=== PATIENT | female | born 1950 | race Caucasian/White ===

== ENCOUNTER 2024-08-05 08:54 | Outpatient (REF) | payer MEDICARE, SELFPAY ==
[2024-08-05 09:13] LABS: Potassium 5.9 mmol/L (3.5-5.1)
== END 2024-08-05 08:55 | disposition home or self-care (01) ==
LOC: LAB 08:54
PROVIDERS: PCP Internal Medicine Nephrology; Visit Provider Internal Medicine Nephrology
DX: E87.5 Hyperkalemia (principal)
CPT/HCPCS: 36415; 84132

== ENCOUNTER 2024-12-14 08:04 | Outpatient (OUT) | payer MEDICARE, SELFPAY ==
--- OUTSIDE RECORDS SUMMARY | 2024-11-25 14:04 | XMS_ITS ---
Author Name Auto Generated Organization OHIP Support Name Relationship Address Phone Melani Butler Next of Kin [address] [place] [address] [place] [phone] + MELANI BUTLER Next of Kin [facility] [place] [address] + MELANI BUTLER Next of Kin [facility] [place] [address] + Melani Btuler Next of Kin [address] [place] [address] [place] [address] + LUKE, MELANI Next of Kin [facility] [place] [address] + Luke, Melani Next of Kin [address] [place] [address] [place] [phone] + Luke, Melani Next of Kin [address] [place] [address] [address] [place] [phone] + MELANI UBTLER Next of Kin [facility] [place] [address] + MELANI BUTLER Next of Kin [facility] [place] [address] + Luke, Melani Next of Kin [address] [place] [address] [place] [address] + Luke, Melani Next of Kin [address] [place] [address] [place] [address] + Luke, Melani Next of Kin [address] [place] [address] [place] [phone] + Melani Butler Next of Kin [address] [address] [place] [address] + MELANI BUTLER Next of Kin [address] [facility] [place] [address] + MELANI BUTLER Next of Kin [address] [place] [address] + Care Team Providers Care Washer Hand Name Role Phone GABE CAMPBELL Attending Unavailable GABE CAMPBELL Attending Unavailable GUZMANJAYY Attending Unavailable GUZMANJAYY A Attending Unavailable GABE CAMPBELL Attending Unavailable GABE CAMPBELL Referring Unavailable GABE CAMPBELL Attending Unavailable Guzman, Jayy Primary Care Unavailable Anival Benjamin Attending Unavailable Anival Benjamin Admitting Unavailable Guzman, Jayy Primary Care Unavailable Malachi Clarke Attending Malachi Mckay Admitting Unavai lable Guzman, Jayy Primary Care Unavailable Jabari Olson Attending Unavailable Jabari Olson Admitting Unavailable Guzman, Jayy Primary Care Unavailable Herve Londono Attending UnavailHerve Dowling Admitting Unavailabl e Guzman, Jayy Primary Care Unavailable Leo Bell Admitting UnavailMike Lopes Attending Unavailable oTño Denson Consulting Unavailable Nilsa Darnell Consulting Unavailable Charles, Lan Consulting Unavailable Anival Benjamin Consulting Unavailable Abdon Tran Consulting Unavailab Nita Hess Consulting Unavailable Abdon Jacobs Consulting Unavaila Leana Umaña Consulting Unavailable René Gerardo Consulting Unavailable Tu Curran Consulting Unavailable Philipp Holt Consulting Unavailable [place], Basem Consulting Unavailable Santiago Joshi Consulting Un available Wanda Frank Consulting Unavailable Goldie Mcmillan Consulting Unavaila Herve Abreu Consulting UnavailSherwin Mancia Consulting Unavailable Madelin Mancini Consulting Unavailable Mike Barajas Unavailable Malachi Clarke Consulting Aruna Bettencourt Consulting Unavailable Angel Alcocer Consulting Unavailable Charles, Lan Consulting Unavailable Sam Carpio Attending Unavailable Guzman, Jayy Primary Care Unavailable Sam Carpio Admitting Unavailable Sherwin Richards Unavailable Carlton Lazaro Attending Unavailable Guzman, Jayy Primary Care Unavailable aCrlton Lazaro Admitting Unavailable Guzman, Jayy Primary Care Unavailable Jabari Olson Admitting Unavailable Jabari Olson Attending Unavailable GUZMAN, JAYY MYRTLE Primary Care Unavailable JAYY PARKER R Referring Unavailable GUZMAN, JAYY MYRTLE Primary Care Unavailable JAYY PARKER R Referring Unavailable JAYY PARKER R Referring Unavailable GUZMAN, JAYY MYRTLE Primary Care Unavailable GUZMAN, JAYY MYRTLE Primary Care Unavailable JAYY PARKER R Referring Unavailable GUZMAN, JAYY MYRTLE Primary Care Unavailable AVNI AZEVEDO Referring Unavailable GUZMAN, JAYY MYRTLE Primary Care Unavailable AVNI AZEVEDO Referring Unavailable JAYY PARKER Attending Unavailable GUZMAN, JAYY MYRTLE Primary Care Unavailable JAYY PARKER R Referring Unavailable JAYY PARKER Referring Unavailable GUZMAN, JAYY MYRTLE Primary Care Unavailable GUZMAN, JAYY MYRTLE Primary Care Unavailable GUZMAN, JAYY MYRTLE Primary Care Unavailable JOLLYAVNI Referring Unavailable GUZMAN, JAYY MYRTLE Primary Care Unavailable MEHNAZ DURAN Attending Unavailable JAYY PARKER R Referring Unavailable GUZMAN, JAYY MYRTLE Primary Care Unavailable AVNI AZEVEDO Referring Unavailable JAYY PARKER R Attending Unavailable GUZMAN, JAYY MYRTLE Primary Care Unavailable JAYY PARKER R Referring Unavailable GUZMAN, JAYY MYRTLE Primary Care Unavailable JAYY PARKER R Referring Unavailable JAYY PARKER Attending Unavailable GUZMAN, JAYY MYRTLE Primary Care Unavailable JAYY PARKER Referring Unavailable PROBLEMS DATE TYPE CONDITION / CODE ATTENDING STATUS [facility] 11/25/2024 Unknown Unspecified atri al fibrillation / I48.91(ICD-10) Malachi Clarke [facility] 11/03/2024 Unknown Breakdown (mecha nical) of vascular dialysis catheter, initial encounter / T82.41XA(ICD-10) Herve Londono [facility] 11/03/2024 Unknown Unspecified kidn ey failure / N19(ICD-10) Herve Londono [facility] 09/14/2024 Unknown Right upper quad rant pain / R10.11(ICD-10) Carlton Lazaro [facility] 09/14/2024 Unknown Unspecified abdo amanda pain / R10.9(ICD-10) Carlton Lazaro [facility] 08/11/2024 Unknown Resistant hypert ension / I1A.0(ICD-10) Anival Benjamin [facility] 05/25/2024 Unknown 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 / Z99.2(ICD-10) Sam Carpio [facility] 05/25/2024 Unknown Hypertensive chr onic kidney disease with stage 1 through stage 4 chronic kidney disease, or unspecified chronic kidney disease / I12.9(ICD-10) Sam Carpio [facility] 05/25/2024 Unknown End stage renal disease / N18.6(ICD-10) Sam Carpio [facility] 05/25/2024 Unknown Myocardial infar ction type 2 / I21.A1(ICD-10) Sam Carpio [facility] 05/25/2024 Unknown Paroxysmal atria l fibrillation / I48.0(ICD-10) CarpioSam cortez [facility] 05/25/2024 Unknown Hypotension, uns pecified / I95.9(ICD-10) Sam Carpio [facility] 05/25/2024 Unknown Unspecified cont act dermatitis due to other agents / L25.8(ICD-10) Sam Carpio [facility] 05/25/2024 Unknown Unspecified urin jose angel incontinence / R32(ICD-10) Sam Carpio [facility] 05/09/2024 Unknown Hypertensive lew rgency / I16.1(ICD-10) Jaun Mike [facility] 05/09/2024 Unknown Unspecified conv ulsions / R56.9(ICD-10) Jaun Mike [facility] 05/09/2024 Unknown Malignant neopla sm of unspecified part of unspecified bronchus or lung / C34.90(ICD-10) Mike Zamorano [facility] 05/09/2024 Unknown Atherosclerotic heart disease of [place] coronary artery without angina pectoris / I25.10(ICD-10) [facility] 05/09/2024 Unknown Presence of aortocoronary bypass graft / Z95.1(ICD-10) [facility] 05/09/2024 Unknown Chronic kidney d isease, stage 3b / N18.32(ICD-10) [facility] 05/09/2024 Unknown Cough, unspecifi ed / R05.9(ICD-10) [facility] 05/09/2024 Unknown Acute respirator y failure with hypoxia / J96.01(ICD-10) [facility] 05/09/2024 Unknown Acute kidney marni lure, unspecified / N17.9(ICD-10) [facility] 05/09/2024 Unknown Chronic kidney d isease, unspecified / N18.9(ICD-10) [facility] 05/09/2024 Unknown Hypertensive urg ency / I16.0(ICD-10) [facility] 05/09/2024 Unknown Atherosclerosis of renal artery / I70.1(ICD-10) [facility] 05/09/2024 Unknown Pulmonary hypert ension, unspecified / I27.20(ICD-10) [facility] 05/09/2024 Unknown Rheumatoid arthr itis, unspecified / M06.9(ICD-10) [facility] 05/09/2024 Unknown Anemia in chroni c kidney disease / D63.1(ICD-10) [facility] 05/09/2024 Unknown Unspecified atherosclerosis / I70.90(ICD-10) [facility] 05/09/2024 Unknown 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) [facility] 05/09/2024 Unknown Critical illness myopathy / G72.81(ICD-10) Mike Zamorano [facility] 05/09/2024 Unknown Other specified counseling / Z71.89(ICD-10) Mike Zamorano [facility] 05/07/2024 Unknown Pleural effusion , not elsewhere classified / J90(ICD-10) Jabari Olson [facility] 05/05/2024 Unknown Shortness of markus ath / R06.02(ICD-10) Jabari Olson [facility] 04/22/2024 Active SOB (shortness o f breath) / R06.02(ICD-10) NA Active [facility] 01/15/2023 Active 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, right (HCC) / C34.91(ICD-10) JAYY PARKER Active [facility] PROCEDURES No Procedure Records Found RESULTS FPG ECG *CARDIOLOGY ONLY* Observed: 01/2025 2:12 PM Status: COMPLETED Source: [facility] [place] [address] Electrocardiograph Report Signed Patient: Lupe Butler MR#: [id number] 1 : 1950 Acct:[id number] Age/Sex: 74 / F ADM Date: 11/25/24 Loc: [facility] Room: Type: [facility] Attending Dr: Malachi Clarke MD Ordering Provider: Malachi Clarke MD Date of Service: 11/25/2402/13/1404 ECG/FPG ECG *CARDIOLOGY ONLY*: I48.91 - Unspecified atrial fibrillation Copies to: Test Reason : Blood Pressure : */* mmHG Vent. Rate : 73 BPM Atrial Rate : 73 BPM P-R Int : 154 ms QRS Dur : 78 ms QT Int : 448 ms P-R-T Axes : 76 87 74 degrees QTcB Int : 493 ms Normal sinus rhythm Nonpathologic Q waves inferiorly. Confirmed by Malachi Clarke ([id number]) on 11/25/2024 4:30:04 PM Referred By: Electronically Signed By: Malachi Clarke Transcribed By: MUS Signed By Malachi Clarke MD 11/25/24 1630 XR LUMBAR SPINE 4+ VIEWS WIT H FLEXION EXTENSION Observed: 11/13/2024 12:46 PM Status: F Source: [facility] EPIC Exam: XR LUMBAR SPINE 4+ VIE WS WITH FLEXION EXTENSION Clinical History: Low back pain, post fall Reference Exam: No comparison FINDINGS: Lumbar vertebral bodies are of appropriate height. Minor multilevel anterior spondylosis. Disc space height loss most pronounced at L4-L5. Lumbar pedicles are not splayed. Oblique views document no pars interarticularis defects. Smooth sacrococcygeal arch. Abdominal aortic atherosclerosis and ectasia. Flexion/extension lateral views generate no abnormal motion. Background osteopenia. IMPRESSION: Minor degenerative changes. No acute compression or other fracture. No subluxation. No generation of abnormal motion on provocative maneuvers. Dictated on: 11/13/2024 5:13 PM This report has been electronically signed and approved by the interpreting Radiologist. DEIDRE Observed: 11/04/2024 12:00 AM Status: COMPLETED Source: [facility] Telephone (HEMASA) LUPE BUTLER ([id number]) 1950 F Date Time Provider Department 11/04/24 AVNI AZEVEDO During your visit today, we recorded the following information about you: Avni Azevedo APRN.MARCIE 11/04/2024 10:43 AM Signed Received order for oxygen renewal. Please contact patient and find out who she is following with. Last visit here 05/05/2024. No follow up scheduled. She should contact her physician she's following or schedule an appointment. Thanks, Avni Azevedo APRN.Pham Dodson, LIU 11/04/2024 1:04 PM Signed FYI: Spoke w/ pt who reports she uses the oxygen on an as needed basis. Encouraged pt to schedule a follow up w/ our office. Pt states that she is no longer receiving treatment. Explained to pt that we recommend she follow up even if she is not getting treatment. Pt verbalizes understanding and states that her is currently in hospice care. Does not wish to schedule a follow up at this time. Recommended she reach out to her PCP for her oxygen renewal. Pt verbalizes understanding and agrees. Pham Proctor RN Allergies As of Date: 11/04/2024 Noted Allergy Reaction MORPHINE 09/08/2009 1 - Mental Status Change LATEX 08/13/2023 9 - Itching NITROFURAN ANALOGUES 07/07/2001 SULFA (SULFONAMIDE ANTIBIOTICS) 07/07/2001 Date Reviewed: 11/04/2024 Reviewed by: Avni Azevedo APRN.ASSISTANT FACILITY MANAGER - Fully Assessed Reason for Visit: Care Coordination [3491] Cmt: Oxygen Request Prescriptions as of 11/04/2024 - predniSONE (DELTASONE) 20 mg tablet Take 2 tablets by mouth once daily. - amLODIPine (NORVASC) 10 mg tablet Take 1 tablet by mouth every afternoon. - furosemide (LASIX) 20 mg tablet Take 20 mg by mouth once daily as needed. - nitroglycerin sublingual (NITROQUICK) 0.4 mg SL tablet Dissolve 0.4 mg under the tongue every 5 minutes as needed for chest pain. - HYDROcodone-Acetaminophen (NORCO) 7.5-325 mg per tablet Take 1 tablet by mouth every 8 hours as needed for pain. - metoprolol tartrate 75 mg tab Take 75 mg by mouth twice daily. - alprazolam(XANAX 0.5 MG TAB) Take one(1) tablet two (2) times daily. Problem List As Of Date 11/04/2024 Noted Resolved Anxiety and depression [F41.9, F32.A] LUMBAGO [M54.50] Essential hypertension [I10] Other and Unspecified Hyperlipidemia [E78.5] COUGH [R05.9] 08/15/2001 TIA (Transient Ischemic Attack) [G45.9] 09/08/2009 Anemia [D64.9] 09/11/2009 SUMMARY [V999.95] 09/12/2009 PVD (peripheral vascular disease) (HCC) [I73.9] 12/21/2022 Difficult intubation [T88.4XXA] 12/21/2022 History of carotid endarterectomy [Z98.890] 12/21/2022 Smoker [F17.200] 12/21/2022 Atherosclerosis of [place] coronary artery of na*12/21/2022 NASIR (obstructive sleep apnea) [G47.33] 12/21/2022 Palpitations [R00.2] 12/21/2022 Opioid use [F11.90] 12/21/2022 Obesity (BMI 30.0-34.9) [E66.811] 12/21/2022 Blood pressure instability [I99.8] 12/25/2022 Primary lung cancer with metastasis from lung t*01/15/2023 Encounter Status:Closed by PHAM PROCTOR on 11/04/24 DIPSTICK AND MICROSCOPIC Collected: 1:38 PM Status: F Source: [facility] Order Comment: Name Collecti on Type:: Clean-Voided Midstream TYPE CODE TESTS RESULT OUT OF RANGE REFERENCE UNITS LAB UCOL Color,Urine Yellow Yellow LAB UAPP Appearance,Uri ne Cloudy Abnormal Alert Clear LAB USG Specificy [place],Urine 1.016 Normal 1.001-1.030 LAB UPH pH,Urine 5.5 Normal 5.0-9.0 LAB ULE Leukocyte Esterase,Urine 1+ High Negative LAB UNIT Nitrite,Urine Negative Negative LAB UPRO Protein,Urine 70 High Negative mg/dL LAB UGL Glucose,Urine (UA) Normal Normal LAB UKET Ketones,Urine Negative Negative LAB UURO Urobilinogen,U rine Normal Normal LAB UBIL Bilirubin,Urin e Negative Negative LAB UBLD Occult Blood,Urine Trace High Negative Result Comment: PERFORMED BY : [address] [address] [place] [address] PATHOLOGIST MATERIALS ENGINEER LEANA FONTANEZ M.D. LAB URBC RBC,Urine 3-4 0-4 [HPF] LAB UWBC WBC,Urine 5-9 High 0-4 [HPF] LAB UCLUMPWBC WBC CLUMP, Urine Rare High None Seen LAB USQEPI Squamous Epithelial Cell,Urine 5-9 High 0-2 [HPF] LAB UROTHEL Urothelial Cells 1-2 High 0-1 [HPF] LAB UBACT Bacteria,Urine Rare None Seen LAB UHYALC Hyaline Casts,Urine 0-8 0-8 [LPF] Result Comment: PERFORMED BY : [place] [address] PATHOLOGIST MATERIALS ENGINEER LEANA FONTANEZ M.D. Performed By: #### CUJose, MISHA ESTRADAUS #### [id number] [facility] URINE CULTURE Observed: 09/14/2024 1:38 PM Status: F Source: [facility] ORGANISM: Lactobacillus hailey aniya (O:LACGAS) [place] Count >100,000 Organism Comments Organism not Routinely Tested for Susceptibilities ORGANISM: Yeast Like Organism (O:YLO) [place] Count <10,000 Organism #2 identified as Pichia kuiavzevii, formerly known as Dee Dee krusei. PERFORMED BY: [place] [address] PATHOLOGIST MATERIALS ENGINEER LEANA FONTANEZ M.D. Performed By: #### CUJose, MISHA ESTRADAUS #### [id number] [facility] CT ABDOMEN PELVIS WO CON Observed: 09/14 1:30 PM Status: COMPLETED Source: [facility] [place] [address] CT Scan Report Signed Patient: Lupe Butler MR#: [id number] 1 : 1950 Acct:[id number] Age/Sex: 73 / F ADM Date: 09/14/24 Loc: ER Room: Type: [facility] ER Attending Dr: Copies to: Carlton Lazaro DO Ordering Provider: Carlton Lazaro DO Date of Service: 09/14/24 CT/CT abdomen pelvis wo con: R upper quad pain CT abdomen pelvis wo con 09/14/2024 12:15 PM SIGNS AND SYMPTOMS: Generalized abdominal pain TECHNIQUE: Multidetector ct axial images of the abdomen and pelvis were obtained without IV contrast. Multiplanar reformats were performed and reviewed to further define anatomy and possible pathology. CT was performed with one or more of the following dose reduction techniques: Automated exposure control, adjustment of the mA and/or kV according to patient size, or use of iterative reconstruction technique. COMPARISON: 11/25/2015 FINDINGS: Lower Chest: Breast implants are redemonstrated with rupture on the right similar to the prior exam. Atherosclerotic changes are noted in the thoracic aorta and coronary arteries. There is calcification along the mitral annulus. Emphysematous changes are noted in the lung bases. There is an atelectasis in the lung bases. There is a small right-sided pleural effusion. ABDOMEN: Liver: Within normal limits. Bile Ducts: Normal caliber. Gallbladder: Dependently layering stones and debris are noted in the gallbladder lumen. Pancreas: Within normal limits. Spleen: Within normal limits. Adrenals: Within normal limits. Kidneys: Their is a 3 mm nonobstructing stone at the superior pole the right collecting system. There is right renal cortical atrophy. This is unchanged. Pelvis: Reproductive Organs: No pelvic masses. Ureters: Within normal limits. Bladder: Within normal limits. Bowel: There are uncomplicated colonic diverticula. There is a normal appendix in the right lower quadrant. Mesenteric Lymph Nodes: No enlarged mesenteric lymph nodes. Peritoneum: No ascites or free air, no fluid collection. Vessels: Atherosclerotic changes are noted in the abdominal aorta and its branches. There is periaortic fat stranding possibly relating to aortitis. This is new compared to the prior exam. The abdominal aorta is ectatic. There is ongoing clinical concern for rupture or leak, CT angiogram is suggested. Retroperitoneum: Within normal limits. Abdominal Wall: Within normal limits. Bones: Degenerative changes are noted in the thoracolumbar spine. Degenerative changes are noted in the sacroiliac joints. CT/CT abdomen pelvis wo con IMPRESSION: Atherosclerotic changes are noted in the abdominal aorta and its branches. There is periaortic fat stranding possibly relating to aortitis. This is new compared to the prior exam. The abdominal aorta is ectatic. There is ongoing clinical concern for rupture or leak, CT angiogram is suggested. No bowel obstruction or obstructive uropathy. There is a small right-sided pleural effusion which appears to be new. The previous left-sided pleural effusion has resolved. Additional chronic findings are noted as above. Impression dictated by: Mike Higgins M.D.09/14/2024 1:39 PM Dictation Location: [address] [address] Transcribed By: PWS 09/14/24 1330 Dictated By: Mike Higgins II, MD 09/14/24 1330 Signed By: <Electronically signed by Mike Higgins II, MD in OV> 09/14/24 1339 HEPATIC PANEL Collected: 09/14/2024 12:28 PM Status: F Source: [facility] TYPE CODE TESTS RESULT OUT OF RANGE REFERENCE UNITS LAB TP Total Protein 6.0 Low 6.4-8.9 g/dL LAB ALB Albumin Level 3.2 Low 3.5-5.7 g/dL LAB GLOB Globulin 2.8 g/dL LAB AGRATIO Albumin/Globulin Ratio 1.1 LAB BILIT Bilirubin,Total 0.5 Normal 0.3-1.0 mg/dL LAB BILID Bilirubin,Direct 0.10 Normal 0.03-0.18 mg/dL LAB BILII Bilirubin,Indirect 0.4 mg/dL LAB AST Aspartate Amino Transferase 13 Normal 13-39 U/L LAB ALT Alanine Aminotransferase 5 Low 7-52 U/L LAB ALP Alkaline Phosphatase 65 Normal 34-104 U/L Performed By: #### LIPASE, S CAN CBC, BMP, HEPATIC #### [facility] [address] BASIC METABOLIC PANEL Collected: 2024 12:28 PM Status: F Source: [facility] TYPE CODE TESTS RESULT OUT OF RANGE REFERENCE UNITS LAB GLU Glucose 111 High 70-100 mg/dL Result Comment: Random Gluco se Reference Range is dependent on time and content of last meal. Glucose of more than 200 mg/dL in a nonstressed, ambulatory subject supports the diagnosis of Diabetes Mellitus. ADA recommended reference range LAB BUN Blood Urea Nitrogen 45 High 7-25 mg/dL LAB CREATT Creatinine 6.88 High 0.60-1.20 mg/dL LAB GFReNR Estimated GFR 5.953 mL/Min LAB NA Sodium 136 Normal 136-145 mmol/L LAB K Potassium 4.6 Normal 3.5-5.1 mmol/L LAB CL Chloride 99 Normal 98-107 mmol/L LAB CO2 Carbon Dioxide 25.0 Normal 21.0-31.0 mmol/L LAB GAP Anion Gap 16.6 High 6.0-15.0 meq/L LAB CA Calcium 8.3 Low 8.6-10.3 mg/dL LAB CRCLPHA Creatinine Clr Calc Pharmacy 6.20 Performed By: #### LIPASE, S CAN CBC, BMP, HEPATIC #### [facility] [address] [id number] [place] LIPASE Collected: 12:28 PM Status: F Source: [facility] TYPE CODE TESTS RESULT OUT OF RANGE REFERENCE UNITS LAB LIPASE Lipase 16.0 Normal 11.0-82.0 U/L Result Comment: PERFORMED BY : [facility] [address] [place] [address] PATHOLOGIST MATERIALS ENGINEER LEANA FONTANEZ M.D. Performed By: #### LIPASE, S CAN CBC, BMP, HEPATIC #### [facility] [id number] [facility] SCAN AND CBC Collected: 12:28 PM Status: F Source: [facility] TYPE CODE TESTS RESULT OUT OF RANGE REFERENCE UNITS LAB WBC White Blood Count 9.5 Normal 3.8-11.6 10*3/uL LAB UNWBC Uncorrected WBC 9.5 Normal 3.8-11.6 10*3/uL LAB RBC Red Blood Count 4.03 Normal 3.60-5.00 10*6/u L LAB HGB Hemoglobin 12.0 Normal 11.8-15.4 g/dL LAB HCT Hematocrit 37.2 Normal 34.0-46.4 % LAB MCV Mean Corpuscular Volume 92.3 Normal 80-100 fL LAB MCH Mean Corpuscular Hemoglobin 29.7 Normal 24.7-34.3 pg LAB MCHC Mean Corpuscular HGB Conc 32.2 Normal 32.0-35.0 g/dL LAB RDW Red Cell Distribution Width 18.6 High 11.9-15.3 % LAB PLT Platelet Count 278 Normal 150-450 10*3/uL LAB MPV Mean Platelet Volume 8.3 Normal 6.3-10.7 fL LAB MDW Monocyte Distribution Width 20.06 High 0.00-20.00 % Result Comment: The predicti ve value of MDW for identifying sepsis in patients with hematological abnormalities has not been established LAB NE% Neutrophils % (Auto) 70.4 . % LAB LY% Lymphocytes % (Auto) 15.5 . % LAB MO% Monocytes % (Auto) 8.1 . % LAB EO% Eosinophils % (Auto) 2.2 . % LAB BA% Basophils % (Auto) 3.8 . % LAB NRBC% NRBC% 0.0 Normal 0-0.5 /100{WBC } LAB NE# Neutrophils # (Auto) 6.7 Normal 1.8-7.7 10*3/uL LAB LY# Lymphocytes # (Auto) 1.5 Normal 1.00-4.8 10*3/uL LAB MO# Monocytes # (Auto) 0.8 Normal 0.0-0.8 10*3/uL LAB EO# Eosinophils # (Auto) 0.2 Normal 0.0-0.45 10*3/uL LAB BA# Basophils # (Auto) 0.4 High 0.0-0.2 10*3/uL LAB ANISO Anisocytosis Moderate LAB PLT EST Platelet Estimate Normal Normal LAB PLTM Platelet Morphology Normal Normal Result Comment: PERFORMED BY : [place] [address] PATHOLOGIST MATERIALS ENGINEER LEANA FONTANEZ M.D. Performed By: #### LIPASE, S CAN CBC, BMP, HEPATIC #### [facility] [address] [place] [address] ECG 12 LEAD ECG Observed: 09/14/2024 12:16 PM Status: COMPLETED Source: [facility] [place] [address] Electrocardiograph Report Signed Patient: Lupe Butler MR#: [id number] 1 : 1950 Acct:[id number] Age/Sex: 73 / F ADM Date: 09/14/24 Loc: ER Room: Type: [facility] ER Attending Dr: Ordering Provider: Carlton Lazaro DO Date of Service: 09/14/24 ECG/ECG 12 lead ECG: Abdominal Pain Copies to: Test Reason : Blood Pressure : 218/104 mmHG Vent. Rate : 68 BPM Atrial Rate : 68 BPM P-R Int : 164 ms QRS Dur : 78 ms QT Int : 466 ms P-R-T Axes : 64 18 102 degrees QTcB Int : 495 ms Normal sinus rhythm Possible Left atrial enlargement Cannot rule out Anterior infarct , age undetermined T wave abnormality, consider lateral ischemia Abnormal ECG When compared with ECG of 28-May-2024 07:24, Significant changes have occurred Confirmed by CARLTON LAZARO DO ([id number]) on 09/14/2024 4:01:15 PM Referred By: Electronically Signed By: CARLTON LAZARO DO Transcribed By: MUS Signed By Carlton Lazaro DO [id number] US RENAL DOPPLER LIMITED Observed: 08/13 11:38 AM Status: COMPLETED Source: [facility] [place] [address] Ultrasound Report Signed Patient: Lupe Butler MR#: [id number] 1 : 1950 Acct:[id number] Age/Sex: 73 / F ADM Date: 08/11/24 Loc: Room: Type: [facility] Attending Dr: Anival Benjamin MD Ordering Provider: Anival Benjamin MD Date of Service: 08/11/24 US/US renal doppler limited: I1A.O Copies to: Anival Benjamin MD Renal artery duplex examination performed using B-mode, color flow and spectral Doppler assessment. (CPT: 86495) INDICATION: Hypertension FINDINGS: Aorta: PSV 98.9 cm/s Right Kidney Size: 7.04 cm x 2.67 cm x 2.68 cm Left Kidney Size: 10.79 cm x 5.32 cm x 4.79 cm Right renal artery origin: PSV not visualized Right proximal renal artery: PSV not visualized Right mid renal artery: PSV not visualized Right distal renal artery: PSV not visualized RI: Unable to calculate RAR: Unable to calculate Left renal artery origin: PSV 145 cm/s Left proximal renal artery: PSV 228 cm/s Left mid renal artery: PSV 228 cm/s Left distal renal artery: PSV 18.9 cm/s RI: 0.86 RAR: 1.46 US/US renal doppler limited IMPRESSION: There is no evidence of left renal artery hemodynamic stenoses present at this time. The right renal artery was not visualized. Impression dictated by: Herve Londono MD08/13/2024 11:40 AM Dictation Location: [place] [address] Tech: Avni Silva Transcribed By: PWS 08/13/24 1140 Dictated By: Herve Londono MD 08/13/24 1138 Signed By: <Electronically signed by Herve Londono MD in OV> 08/13/24 1140 CNPN Observed: 06/01/2024 12:00 AM Status: COMPLETED Source: [facility] Telephone (HEMASA) LUPE BUTLER ([id number]) 1950 F Date Time Provider Department 06/01/24 PHAM PROCTOR During your visit today, we recorded the following information about you: Pham Proctor RN 06/01/2024 4:58 PM Signed DISCHARGE CALL BACK Today's date: June 01, 2024 Notified of Pt discharge by: Call placed to [facility] for update/ Patient discharged on 05/28/24 from [facility] to Home with Homecare Nurse Primary Cancer Diagnosis: Lung Cancer Admitting Diagnosis: Afib w/ RVR, Acute renal failure, Hypertensive chronic kidney disease, CAD, Lung Cancer Discharge Summary/SBAR reviewed: Yes Handoff Discussed with Transitional Pharmacy Data Analyst: N/A Psychosocial Risk Factors: None If patient discharged to SNF/Rehab Facility, phone call completed to reinforce discharge instructions and follow up: N/A Call Disposition: Called patient and spoke with patient and patient's spouse. Patient identified by name and date of . YES Patient with symptom issues: Yes, c/o nausea following dialysis. Reports this happens after every dialysis treatment. Lasts for about 24 hours before going away. Antiemetics do not help. Pain: No=0 (pain 0 on a scale of 0-10). Is patient followed by Palliative Medicine? No Palliative Medicine follow up: N/A Any new barriers to care identified? No Any new referrals needed? No Social Work Follow-Up visit scheduled? NA Does the patient need interventions No or same day appointment: No MEDICATION ADHERENCE Patient discharged with prescriptions? No Discharge prescriptions filled: N/A Patient understands when to take prescriptions: N/A FOLLOW UP Patient scheduled for follow-up appointment within 5 business days of discharge? No, Scheduled at discharge Patient reminded of follow-up appointment with [facility] provider, Dr Parker on 06/08/24: Yes - Pt requesting to postpone this a few weeks. States, I am doctored out. Informed pt that we would reschedule her appointment as requested and call her when scheduled. Discussed - Pt on her way home from dialysis. Dialysis scheduled every Saturday, Saturday, AND Saturday. C/o nausea and fatigue. Home health was in to see pt on Saturday. Next visit scheduled for later this week. . PATIENT EDUCATION / REINFORCEMENT Patient verbalizes understanding of when to seek Medical Attention? YES Patient verbalizes understanding of after hours and weekend phone number? YES Pham Proctor RN Allergies As of Date: 06/01/2024 Noted Allergy Reaction MORPHINE 09/08/2009 1 - Mental Status Change LATEX 08/13/2023 9 - Itching NITROFURAN ANALOGUES 07/07/2001 SULFA (SULFONAMIDE ANTIBIOTICS) 07/07/2001 Date Reviewed: 05/06/2024 Reviewed by: Mehnaz Duran, PASarahC - Fully Assessed Reason for Visit: Care Coordination [9761] Cmt: Discharge Follow Up Call Prescriptions as of 06/01/2024 - predniSONE (DELTASONE) 20 mg tablet Take 2 tablets by mouth once daily. - amLODIPine (NORVASC) 10 mg tablet Take 1 tablet by mouth every afternoon. - furosemide (LASIX) 20 mg tablet Take 20 mg by mouth once daily as needed. - nitroglycerin sublingual (NITROQUICK) 0.4 mg SL tablet Dissolve 0.4 mg under the tongue every 5 minutes as needed for chest pain. - HYDROcodone-Acetaminophen (NORCO) 7.5-325 mg per tablet Take 1 tablet by mouth every 8 hours as needed for pain. - metoprolol tartrate 75 mg tab Take 75 mg by mouth twice daily. - alprazolam(XANAX 0.5 MG TAB) Take one(1) tablet two (2) times daily. Problem List As Of Date 06/01/2024 Noted Resolved Anxiety and depression [F41.9, F32.A] LUMBAGO [M54.50] Essential hypertension [I10] Other and Unspecified Hyperlipidemia [E78.5] COUGH [R05.9] 08/15/2001 TIA (Transient Ischemic Attack) [G45.9] 09/08/2009 Anemia [D64.9] 09/11/2009 SUMMARY [V999.95] 09/12/2009 PVD (peripheral vascular disease) (HCC) [I73.9] 12/21/2022 Difficult intubation [T88.4XXA] 12/21/2022 History of carotid endarterectomy [Z98.890] 12/21/2022 Smoker [F17.200] 12/21/2022 Atherosclerosis of [place] coronary artery of na*12/21/2022 NASIR (obstructive sleep apnea) [G47.33] 12/21/2022 Palpitations [R00.2] 12/21/2022 Opioid use [F11.90] 12/21/2022 Obesity (BMI 30.0-34.9) [E66.811] 12/21/2022 Blood pressure instability [I99.8] 12/25/2022 Primary lung cancer with metastasis from lung t*01/15/2023 Encounter Status:Closed by PHAM PROCTOR on 06/01/24 COMPLETE BLOOD COUNT AUTO DIFF Collected: 05/29/2024 12:50 PM Status: F Source: [facility] TYPE CODE TESTS RESULT OUT OF RANGE REFERENCE UNITS LAB WBC White Blood Count 8.5 Normal 3.8-11.6 10*3/uL LAB UNWBC Uncorrected WBC 8.5 Normal 3.8-11.6 10*3/uL LAB RBC Red Blood Count 4.62 Normal 3.60-5.00 LAB HGB Hemoglobin 11.8 Normal 11.8-15.4 g/dL LAB HCT Hematocrit 36.4 Normal 34.0-46.4 % LAB MCV Mean Corpuscular Volume 79.0 Low 80-100 fL LAB MCH Mean Corpuscular Hemoglobin 25.6 Normal 24.7-34.3 pg LAB MCHC Mean Corpuscular HGB Conc 32.4 Normal 32.0-35.0 g/dL LAB RDW Red Cell Distribution Width 21.7 High 11.9-15.3 % LAB PLT Platelet Count 195 Normal 150-450 10*3/uL LAB MPV Mean Platelet Volume 8.1 Normal 6.3-10.7 fL LAB NE% Neutrophils % (Auto) 74.1 . % LAB LY% Lymphocytes % (Auto) 13.0 . % LAB MO% Monocytes % (Auto) 5.8 . % LAB EO% Eosinophils % (Auto) 3.6 . % LAB BA% Basophils % (Auto) 3.5 . % LAB NRBC% NRBC% 0.1 Normal 0-0.5 /100{WBC} LAB NE# Neutrophils # (Auto) 6.3 Normal 1.8-7.7 10*3/uL LAB LY# Lymphocytes # (Auto) 1.1 Normal 1.00-4.8 10*3/uL LAB MO# Monocytes # (Auto) 0.5 Normal 0.0-0.8 10*3/uL LAB EO# Eosinophils # (Auto) 0.3 Normal 0.0-0.45 10*3/uL LAB BA# Basophils # (Auto) 0.3 High 0.0-0.2 10*3/uL Result Comment: PERFORMED BY : [place] [address] PATHOLOGIST MATERIALS ENGINEER JACQUE SHER M.D. Performed By: #### CBC, MOJGAN Noe #### [address] RENAL FUNCTION PANEL Collected: 024 12:50 PM Status: F Source: [facility] TYPE CODE TESTS RESULT OUT OF RANGE REFERENCE UNITS LAB GLU Glucose 123 High 70-100 mg/dL Result Comment: Random Gluco se Reference Range is dependent on time and content of last meal. Glucose of more than 200 mg/dL in a nonstressed, ambulatory subject supports the diagnosis of Diabetes Mellitus. ADA recommended reference range LAB BUN Blood Urea Nitrogen 11 Normal 7-25 mg/dL LAB CREATT Creatinine 2.55 Increased 0.60-1.20 mg/dL LAB GFReNR Estimated GFR 19.587 LAB NA Sodium 136 Normal 136-145 mmol/L LAB K Potassium 3.2 Low 3.5-5.1 mmol/L LAB CL Chloride 97 Low 98-107 mmol/L LAB CO2 Carbon Dioxide 26.8 Normal 21.0-31.0 mmol/L LAB GAP Anion Gap 15.4 High 6.0-15.0 LAB CA Calcium 8.4 Low 8.6-10.3 mg/dL LAB PHOS Phosphorus 2.1 Low 2.5-4.5 mg/dL LAB ALB Albumin Level 3.9 Normal 3.5-5.7 g/dL LAB CRCLPHA Creatinine Clr Calc Pharmacy 19.13 Result Comment: PERFORMED BY : [place] [address] PATHOLOGIST MATERIALS ENGINEER JACQUE SHER M.D. Performed By: #### CBCMOJGAN #### [facility] [address] [place] [address] ECG 12 LEAD ECG Observed: 05/28/2024 7:24 AM Status: COMPLETED Source: [facility] [place] [address] Electrocardiograph Report Signed Patient: Lupe Butler MR#: [id number] 1 : 1950 Acct:[id number] Age/Sex: 73 / F ADM Date: 05/25/24 Loc: Room: [address] [place] [address] Type: ADM IN Attending Dr: Sam Carpio DO Ordering Provider: Malachi Clarke MD Date of Service: 05/28/2402/11/500 ECG/ECG 12 lead ECG: pre-cath Copies to: Test Reason : Blood Pressure : */* mmHG Vent. Rate : 71 BPM Atrial Rate : 71 BPM P-R Int : 154 ms QRS Dur : 78 ms QT Int : 406 ms P-R-T Axes : -3 34 -73 degrees QTcB Int : 441 ms Normal sinus rhythm Minimal voltage criteria for LVH, may be normal variant ( Sokolow-Rosenthal ) T wave abnormality, consider inferior ischemia Abnormal ECG When compared with ECG of 27-May-2024 07:28, No significant change was found Confirmed by JARROD CARDENAS FACGOPI ([id number]) on 05/28/2024 2:19:38 PM Referred By: Electronically Signed By: GOPI GARAY MD FACC Transcribed By: MUS Signed By Gopi Garay MD, FACC 05/28/24 1419 HEMOGRAM CBC WITHOUT DIFF Collected: 05/28/2024 5:15 AM Status: F Source: [facility] TYPE CODE TESTS RESULT OUT OF RANGE REFERENCE UNITS LAB WBC White Blood Count 8.1 Normal 3.8-11.6 10*3/uL LAB RBC Red Blood Count 4.15 Normal 3.60-5.00 LAB HGB Hemoglobin 10.4 Low 11.8-15.4 g/dL LAB HCT Hematocrit 32.4 Low 34.0-46.4 % LAB MCV Mean Corpuscular Volume 78.2 Low 80-100 fL LAB MCH Mean Corpuscular Hemoglobin 25.1 Normal 24.7-34.3 pg LAB MCHC Mean Corpuscular HGB Conc 32.1 Normal 32.0-35.0 g/dL LAB RDW Red Cell Distribution Width 21.4 High 11.9-15.3 % LAB PLT Platelet Count 220 Normal 150-450 10*3/uL LAB MPV Mean Platelet Volume 7.9 Normal 6.3-10.7 fL Result Comment: PERFORMED BY : [place] [address] PATHOLOGIST MATERIALS ENGINEER JACQUE SHER M.D. Performed By: #### CBCNO, BM P, MG #### [address] BASIC METABOLIC PANEL Collected: 2023 5:15 AM Status: F Source: [facility] TYPE CODE TESTS RESULT OUT OF RANGE REFERENCE UNITS LAB GLU Glucose 78 Normal 70-100 mg/dL Result Comment: Random Gluco se Reference Range is dependent on time and content of last meal. Glucose of more than 200 mg/dL in a nonstressed, ambulatory subject supports the diagnosis of Diabetes Mellitus. ADA recommended reference range LAB BUN Blood Urea Nitrogen 35 High 7-25 mg/dL LAB CREATT Creatinine 5.37 Increased 0.60-1.20 mg/dL LAB GFReNR Estimated GFR 8.014 LAB NA Sodium 137 Normal 136-145 mmol/L LAB K Potassium 4.0 Normal 3.5-5.1 mmol/L LAB CL Chloride 99 Normal 98-107 mmol/L LAB CO2 Carbon Dioxide 27.6 Normal 21.0-31.0 mmol/L LAB GAP Anion Gap 14.4 Normal 6.0-15.0 LAB CA Calcium 7.8 Low 8.6-10.3 mg/dL LAB CRCLPHA Creatinine Clr Calc Pharmacy 8.30 Performed By: #### CBCNO, BM P, MG #### [facility] [address] [place] [address] MAGNESIUM Collected: 5:15 AM Status: F Source: [facility] TYPE CODE TESTS RESULT OUT OF RANGE REFERENCE UNITS LAB MG Magnesium 1.7 Low 1.9-2.7 mg/dL Result Comment: PERFORMED BY : [place] [address] PATHOLOGIST MATERIALS ENGINEER JACQUE SHER M.D. Performed By: #### CBCNO, BM P, MG #### [place] [id number] [facility] COAGULATION PROFILE Collected: 05/28/2024 5:[address] atus: F Source: [facility] TYPE CODE TESTS RESULT OUT OF RANGE REFERENCE UNITS LAB R PT Prothrombin Time 11.5 Normal 9.0-12.9 s Result Comment: A hematocrit value greater than 55% may lead to inaccurate results in coagulation testing. Patients having hematocrit values >55% require a special collection tube for coagulation studies. Please contact the laboratory at [phone] for redraw instructions. LAB INR INR 1.0 Result Comment: INR Therapeu tic Range A) Pre- and Peroperative OAT started two weeks before surgery. NOT HIP SURGERY: 1.5 - 2.5 HIP SURGERY: 2 - 3 B) Primary and secondary prevention of venous THROMBOSIS: 2 - 3 C) Active venous thrombosis, pulmonary embolism and prevention of recurrent venous thrombosis: 2 - 3 D) Prevention of arterial thromboembolism including patients with mechanical heart valves: 3 - 4.5 LAB PTT Partial Thromboplastin Time 25.3 Normal 25.1-36.5 s Result Comment: A hematocrit value greater than 55% may lead to inaccurate results in coagulation testing. Patients having hematocrit values >55% require a special collection tube for coagulation studies. Please contact the laboratory at [phone] for redraw instructions. PERFORMED BY: [place] [address] PATHOLOGIST MATERIALS ENGINEER JACQUE SHER M.D. Performed By: #### PP #### [address] ECG 12 LEAD ECG Observed: 05/27/2024 7:28 AM Status: COMPLETED Source: [facility] Main [address] [address] Electrocardiograph Report Signed Patient: Lupe Butler MR#: [id number] 1 : 1950 Acct:[id number] Age/Sex: 73 / F ADM Date: 05/25/24 Loc: Room: [address] [place] [address] Type: ADM IN Attending Dr: Sam Carpio DO Ordering Provider: Malachi Clarke MD Date of Service: 05/27/2401/12/500 ECG/ECG 12 lead ECG: pre-cath Copies to: Test Reason : Blood Pressure : */* mmHG Vent. Rate : 84 BPM Atrial Rate : 84 BPM P-R Int : 150 ms QRS Dur : 82 ms QT Int : 372 ms P-R-T Axes : 63 39 141 degrees QTcB Int : 439 ms Normal sinus rhythm Biatrial enlargement Left ventricular hypertrophy with repolarization abnormality ( Sokolow-Rosenthal ) Abnormal ECG When compared with ECG of 26-May-2024 07:58, T wave inversion no longer evident in Inferior leads Confirmed by JARROD CARDENAS [facility] ([id number]) on 05/27/2024 2:53:52 PM Referred By: Electronically Signed By: GOPI GARAY MD [facility] Transcribed By: MUS Signed By Gopi Garay MD, FACC 05/27/24 1453 COMPLETE BLOOD COUNT AUTO DIFF Collected: 05/27/2024 4:50 AM Status: F Source: [facility] TYPE CODE TESTS RESULT OUT OF RANGE REFERENCE UNITS LAB WBC White Blood Count 9.3 Normal 3.8-11.6 10*3/uL LAB UNWBC Uncorrected WBC 9.3 Normal 3.8-11.6 10*3/uL LAB RBC Red Blood Count 4.15 Normal 3.60-5.00 LAB HGB Hemoglobin 10.5 Low 11.8-15.4 g/dL LAB HCT Hematocrit 32.2 Low 34.0-46.4 % LAB MCV Mean Corpuscular Volume 77.5 Low 80-100 fL LAB MCH Mean Corpuscular Hemoglobin 25.4 Normal 24.7-34.3 pg LAB MCHC Mean Corpuscular HGB Conc 32.7 Normal 32.0-35.0 g/dL LAB RDW Red Cell Distribution Width 21.2 High 11.9-15.3 % LAB PLT Platelet Count 253 Normal 150-450 10*3/uL LAB MPV Mean Platelet Volume 8.1 Normal 6.3-10.7 fL LAB NE% Neutrophils % (Auto) 76.2 . % LAB LY% Lymphocytes % (Auto) 11.8 . % LAB MO% Monocytes % (Auto) 5.3 . % LAB EO% Eosinophils % (Auto) 4.8 . % LAB BA% Basophils % (Auto) 1.9 . % LAB NRBC% NRBC% 0.1 Normal 0-0.5 /100{WBC} LAB NE# Neutrophils # (Auto) 7.1 Normal 1.8-7.7 10*3/uL LAB LY# Lymphocytes # (Auto) 1.1 Normal 1.00-4.8 10*3/uL LAB MO# Monocytes # (Auto) 0.5 Normal 0.0-0.8 10*3/uL LAB EO# Eosinophils # (Auto) 0.4 Normal 0.0-0.45 10*3/uL LAB BA# Basophils # (Auto) 0.2 Normal 0.0-0.2 10*3/uL Result Comment: PERFORMED BY : [place] [address] PATHOLOGIST MATERIALS ENGINEER JACQUE SHER M.D. Performed By: #### ALEC CB C, CREAT, BUN, LIPID, PP #### [address] ELECTROLYTES Collected: 4 4:50 AM Status: F Source: [facility] TYPE CODE TESTS RESULT OUT OF RANGE REFERENCE UNITS LAB NA Sodium 135 Low 136-145 mmol/L LAB K Potassium 3.8 Normal 3.5-5.1 mmol/L LAB CL Chloride 98 Normal 98-107 mmol/L LAB CO2 Carbon Dioxide 27.9 Normal 21.0-31.0 mmol/L LAB GAP Anion Gap 12.9 Normal 6.0-15.0 Performed By: #### LYDANE, CB C, CREAT, BUN, LIPID, PP #### [facility] [address] [place] [id number] [facility] BLOOD UREA NITROGEN Collected: 05/27/20 4:50 AM Status: F Source: [facility] TYPE CODE TESTS RESULT OUT OF RANGE REFERENCE UNITS LAB BUN Blood Urea Nitrogen 22 Decreased 7-25 mg/dL Performed By: #### ALEC, CB C, CREAT, BUN, LIPID, PP #### [facility] [address] [place] [id number] [facility] CREATININE Collected: 4:50 AM Status: F Source: [facility] TYPE CODE TESTS RESULT OUT OF RANGE REFERENCE UNITS LAB CREATT Creatinine 3.80 Increased 0.60-1.20 mg/dL LAB GFReNR Estimated GFR 12.136 LAB CRCLPHA Creatinine Clr Calc Pharmacy 11.73 Performed By: #### ALEC, CB C, CREAT, BUN, LIPID, PP #### [facility] [address] [place] [id number] [facility] LIPID PANEL Collected: 05/27/2024 4:50 AM Status: F Source: [facility] TYPE CODE TESTS RESULT OUT OF RANGE REFERENCE UNITS LAB CHOL Cholesterol 223 High 140-200 mg/dL Result Comment: Chol less th an 200 mg/dl low risk Chol 201-239 mg/dl borderline risk Chol 240 mg/dl and greater high risk LAB HDL HDL Cholesterol 30 Normal 23-92 mg/dL Result Comment: HDL CHOL ATP -III CLASSIFICATION Cardiovascular Risk HDL > or equal to 60 mg/dL LOW HDL < 40 mg/dL HIGH LAB TRIG W REF Triglyceride w/Reflex 182 High 0-149 mg/dL Result Comment: TRIG ATP III CLASSIFICATION TRIG less than 150 mg/dL Normal TRIG 150-199 mg/dL Borderline high TRIG 200-500 mg/dL High TRIG greater than 500 mg/dL Very high Standard traceable to the Center for Disease Conrtrol and Prevention (CDC) test method. LAB LDLC LDL Cholesterol,Calc ulated 157 High 0-100 mg/dL Result Comment: LDL ATP III CLASSIFICATION LDL less than 100 mg/dL Optimal LDL 100-129 mg/dL Near or above optimal LDL 130-159 mg/dL Borderline high LDL 160-189 mg/dL High LDL greater than 189 mg/dL Very high LAB VLDL VLDL CHOLESTEROL 36 mg/dL LAB CHLHDL Chol/HDL Ratio 7.4 <5.0 Result Comment: PERFORMED BY : [address] [place] [address] PATHOLOGIST MATERIALS ENGINEER JACQUE SHER M.D. Performed By: #### BRITT MICHAEL, CREAT, BUN, LIPID, PP #### [facility] [address] [place], [place] [id number] [facility] COAGULATION PROFILE Collected: 05/27/2024 4:[address] atus: F Source: [facility] TYPE CODE TESTS RESULT OUT OF RANGE REFERENCE UNITS LAB R PT Prothrombin Time 12.5 Normal 9.0-12.9 s Result Comment: A hematocrit value greater than 55% may lead to inaccurate results in coagulation testing. Patients having hematocrit values >55% require a special collection tube for coagulation studies. Please contact the laboratory at [phone] for redraw instructions. LAB INR INR 1.1 Result Comment: INR Therapeu tic Range A) Pre- and Peroperative OAT started two weeks before surgery. NOT HIP SURGERY: 1.5 - 2.5 HIP SURGERY: 2 - 3 B) Primary and secondary prevention of venous THROMBOSIS: 2 - 3 C) Active venous thrombosis, pulmonary embolism and prevention of recurrent venous thrombosis: 2 - 3 D) Prevention of arterial thromboembolism including patients with mechanical heart valves: 3 - 4.5 LAB PTT Partial Thromboplastin Time 24.9 Low 25.1-36.5 s Result Comment: A hematocrit value greater than 55% may lead to inaccurate results in coagulation testing. Patients having hematocrit values >55% require a special collection tube for coagulation studies. Please contact the laboratory at [phone] for redraw instructions. PERFORMED BY: [address] [place] [address] PATHOLOGIST MATERIALS ENGINEER JACQUE SHER M.D. Performed By: #### BRITT MICHAEL C, CREAT, BUN, LIPID, PP #### [facility] [address] [place], [place] [id number] [facility] TYPE AND SCREEN Collected: 05/26/2024 1:37 PM Status : F Source: [facility] Order Comment: Number of uni ts to transfuse now? 1 TYPE CODE TESTS RESULT OUT OF RANGE REFERENCE UNITS LAB BTV Blood Type O Positive Result Comment: PERFORMED BY : [address] [address] PATHOLOGIST MATERIALS ENGINEER JACQUE SHER M.D. LAB ABS Antibody Screen NEGATIVE Result Comment: PERFORMED BY : [address] [address] PATHOLOGIST MATERIALS ENGINEER JACQUE SHER M.D. LEUKOREDUCED RBC Collected: 05/26/2024 1:37 PM Statu s: F Source: [facility] TYPE CODE TESTS RESULT OUT OF RANGE REFERENCE UNITS LAB RCLR([facility]) LeukoReduced RBC TRANSFUSED 05/26/24 1823 ECG 12 LEAD ECG Observed: 05/26/2024 7:58 AM Status: COMPLETED Source: [facility] Main [address] [address] Electrocardiograph Report Signed Patient: Lupe Butler MR#: [id number] 1 : 1950 Acct:[id number] Age/Sex: 73 / F ADM Date: 05/25/24 Loc: Room: [address] [place] [address] Type: ADM IN Attending Dr: Sam Carpio DO Ordering Provider: Pham Ch MD, RES Date of Service: 05/26/2412/12/499 ECG/ECG 12 lead ECG: rising troponin Copies to: Test Reason : Blood Pressure : */* mmHG Vent. Rate : 77 BPM Atrial Rate : 77 BPM P-R Int : 146 ms QRS Dur : 82 ms QT Int : 386 ms P-R-T Axes : -6 24 265 degrees QTcB Int : 436 ms Normal sinus rhythm Left ventricular hypertrophy with repolarization abnormality ( Sokolow-Rosenthal , Romhilt-Lacy ) Abnormal ECG When compared with ECG of 25-May-2024 22:40, (Unconfirmed) premature atrial complexes are no longer present T wave inversion more evident in Inferior leads Confirmed by JARORD CARDENAS [facility] ([id number]) on 05/26/2024 2:19:47 PM Referred By: Electronically Signed By: GOPI GARAY MD FACC Transcribed By: MUS Signed By Gopi Garay MD, FACC 05/26/24 1419 COMPLETE BLOOD COUNT AUTO DIFF Collected: 05/26/2024 6:15 AM Status: F Source: [facility] TYPE CODE TESTS RESULT OUT OF RANGE REFERENCE UNITS LAB WBC White Blood Count 11.0 Normal 3.8-11.6 10*3/uL LAB UNWBC Uncorrected WBC 11.0 Normal 3.8-11.6 10*3/uL LAB RBC Red Blood Count 3.46 Low 3.60-5.00 LAB HGB Hemoglobin 8.6 Low 11.8-15.4 g/dL LAB HCT Hematocrit 26.5 Low 34.0-46.4 % LAB MCV Mean Corpuscular Volume 76.7 Low 80-100 fL LAB MCH Mean Corpuscular Hemoglobin 24.9 Normal 24.7-34.3 pg LAB MCHC Mean Corpuscular HGB Conc 32.5 Normal 32.0-35.0 g/dL LAB RDW Red Cell Distribution Width 22.4 High 11.9-15.3 % LAB PLT Platelet Count 267 Normal 150-450 10*3/uL LAB MPV Mean Platelet Volume 8.2 Normal 6.3-10.7 fL LAB NE% Neutrophils % (Auto) 70.1 . % LAB LY% Lymphocytes % (Auto) 17.6 . % LAB MO% Monocytes % (Auto) 6.2 . % LAB EO% Eosinophils % (Auto) 4.3 . % LAB BA% Basophils % (Auto) 1.8 . % LAB NRBC% NRBC% 0.0 Normal 0-0.5 /100{WBC} LAB NE# Neutrophils # (Auto) 7.7 Normal 1.8-7.7 10*3/uL LAB LY# Lymphocytes # (Auto) 1.9 Normal 1.00-4.8 10*3/uL LAB MO# Monocytes # (Auto) 0.7 Normal 0.0-0.8 10*3/uL LAB EO# Eosinophils # (Auto) 0.5 High 0.0-0.45 10*3/uL LAB BA# Basophils # (Auto) 0.2 Normal 0.0-0.2 10*3/uL Result Comment: PERFORMED BY : [facility] [address] [place] [address] PATHOLOGIST MATERIALS ENGINEER JACQUE SHER M.D. Performed By: #### HS TROP, MG, CBC, BMP #### [facility] [address] [place], [place] [id number] [facility] BASIC METABOLIC PANEL Collected: 05/26/2024 6:15 AM Status: F Source: [facility] TYPE CODE TESTS RESULT OUT OF RANGE REFERENCE UNITS LAB GLU Glucose 74 Normal 70-100 mg/dL Result Comment: Random Gluco se Reference Range is dependent on time and content of last meal. Glucose of more than 200 mg/dL in a nonstressed, ambulatory subject supports the diagnosis of Diabetes Mellitus. ADA recommended reference range LAB BUN Blood Urea Nitrogen 64 High 7-25 mg/dL LAB CREATT Creatinine 7.86 High 0.60-1.20 mg/dL LAB GFReNR Estimated GFR 5.073 LAB NA Sodium 137 Normal 136-145 mmol/L LAB K Potassium 4.1 Normal 3.5-5.1 mmol/L LAB CL Chloride 100 Normal 98-107 mmol/L LAB CO2 Carbon Dioxide 21.9 Normal 21.0-31.0 mmol/L LAB GAP Anion Gap 19.2 High 6.0-15.0 LAB CA Calcium 8.0 Low 8.6-10.3 mg/dL LAB CRCLPHA Creatinine Clr Calc Pharmacy 5.67 Performed By: #### HS TROP, MG, CBC, BMP #### [facility] [address] [place], [place] [id number] [facility] MAGNESIUM Collected: 6:15 AM Status: F Source: [facility] TYPE CODE TESTS RESULT OUT OF RANGE REFERENCE UNITS LAB MG Magnesium 1.9 Normal 1.9-2.7 mg/dL Result Comment: PERFORMED BY : [place] [address] PATHOLOGIST MATERIALS ENGINEER JACQUE SHER M.D. Performed By: #### HS TROP, MG, CBC, BMP #### [facility] [address] [place], [place] [id number] [facility] TROPONIN I HIGH SENSITIVITY Collected: 05/26/2024 6:1 5 AM Status: F Source: [facility] TYPE CODE TESTS RESULT OUT OF RANGE REFERENCE UNITS LAB HS TROP Troponin I High Sensitivity 1045.2 High Off Scale 0.0-15.0 pg/mL Result Comment: Critical Res ult : Called to and read back by: DARA GUIDRY at: 05/26/2024 07:02:01 by:[id number] PERFORMED BY: [facility] [address] [facility] [place] [address] PATHOLOGIST MATERIALS ENGINEER JACQUE SHER M.D. Performed By: #### HS TROP, MG, CBC, BMP #### [facility] [address] [id number] [facility] CNPN Observed: 05/26/2024 12:00 AM Status: COMPLETED Source: [facility] Telephone (HEMASA) LUPE BUTLER ([id number]) 1950 F Date Time Provider Department 05/26/24 PHAM PROCTOR HEMCINDY During your visit today, we recorded the following information about you: Pham Proctor RN 05/26/2024 8:44 AM Signed FYI: Pt admitted to [facility] 3[facility] w/ weakness and dizziness. Per LIU Hickman, EKG showed Afib as well. VS stable. Cardiology, nephrology, and pall med have been consulted. Leilani: Please scan records. Thanks! LIU Silva Jennifer L 05/26/2024 8:54 AM Signed Records scanned. Pham Proctor RN 05/27/2024 10:47 AM Signed Update: Kenzie flores/ Lucien [facility] RN. Pt received 1 unit of RBCs yesterday for hgb of 8.6. Hgb 10.5 today. Pt scheduled for a heart cath this afternoon after dialysis. LIU Silva Rebecca, RN 05/28/2024 8:33 AM Signed Update: Kenzie flores/ Bill [facility] RN. Pt's heart cath was postponed until noon today. Reports VS stable. LIU Silva Tiffany G, RN 05/29/2024 7:59 AM Signed Pt had heart cath yesterday and dialysis after. Pt's heart cath showed patent grafts so pt is scheduled to follow up with cardiology once discharged. Pt my have dialysis again this morning due to getting dye yesterday. She will be discharged after that. LIU Vasquez Rebecca, RN 06/01/2024 4:42 PM Signed FYI: Pt home from hospital. Going to dialysis every Mon, Wed, AND Sat. Home health will be in to see pt later this week. Pt has a follow up w/ desirae on Saturday, 06/08, but requests to postpone this appointment for a couple weeks. States, I'm all doctored out. Clerical: Please move postpone pt's follow up w/ Dr Parker 2 - 3 weeks and call her w/ the appointment. Will need a Saturday or appointment. Thanks! LIU Silva Brian R, MD 06/02/2024 7:49 AM Signed Okay to reschedule appointment for 2 to 3 weeks. Thanks, Pat Grant 06/02/2024 8:49 AM Signed Called Lupe to RS her appt out, she states she does not want to RS she wants to cancel as of right now. She will call us back to RS when she feels better. Allergies As of Date: 05/26/2024 Noted Allergy Reaction MORPHINE 09/08/2009 1 - Mental Status Change LATEX 08/13/2023 9 - Itching NITROFURAN ANALOGUES 07/07/2001 SULFA (SULFONAMIDE ANTIBIOTICS) 07/07/2001 Date Reviewed: 05/06/2024 Reviewed by: Mehnaz Duran PA-C - Fully Assessed Reason for Visit: Care Coordination [1631] Cmt: Hospital Admission Prescriptions as of 06/02/2024 - predniSONE (DELTASONE) 20 mg tablet Take 2 tablets by mouth once daily. - amLODIPine (NORVASC) 10 mg tablet Take 1 tablet by mouth every afternoon. - furosemide (LASIX) 20 mg tablet Take 20 mg by mouth once daily as needed. - nitroglycerin sublingual (NITROQUICK) 0.4 mg SL tablet Dissolve 0.4 mg under the tongue every 5 minutes as needed for chest pain. - HYDROcodone-Acetaminophen (NORCO) 7.5-325 mg per tablet Take 1 tablet by mouth every 8 hours as needed for pain. - metoprolol tartrate 75 mg tab Take 75 mg by mouth twice daily. - alprazolam(XANAX 0.5 MG TAB) Take one(1) tablet two (2) times daily. Problem List As Of Date 05/26/2024 Noted Resolved Anxiety and depression [F41.9, F32.A] LUMBAGO [M54.50] Essential hypertension [I10] Other and Unspecified Hyperlipidemia [E78.5] COUGH [R05.9] 08/15/2001 TIA (Transient Ischemic Attack) [G45.9] 09/08/2009 Anemia [D64.9] 09/11/2009 SUMMARY [V999.95] 09/12/2009 PVD (peripheral vascular disease) (HCC) [I73.9] 12/21/2022 Difficult intubation [T88.4XXA] 12/21/2022 History of carotid endarterectomy [Z98.890] 12/21/2022 Smoker [F17.200] 12/21/2022 Atherosclerosis of [place] coronary artery of na*12/21/2022 NASIR (obstructive sleep apnea) [G47.33] 12/21/2022 Palpitations [R00.2] 12/21/2022 Opioid use [F11.90] 12/21/2022 Obesity (BMI 30.0-34.9) [E66.811] 12/21/2022 Blood pressure instability [I99.8] 12/25/2022 Primary lung cancer with metastasis from lung t*01/15/2023 Encounter Status:Closed by PHAM PROCTOR on 06/02/24 ECG 12 LEAD ECG Observed: 05/25/2024 10:40 PM Status: COMPLETED Source: [facility] [place] [address] Electrocardiograph Report Signed Patient: Lupe Butler MR#: [id number] 1 : 1950 Acct:[id number] Age/Sex: 73 / F ADM Date: 05/25/24 Loc: Room: [address] [place] [address] Type: ADM IN Attending Dr: Sam Carpio DO Ordering Provider: Pham Ch MD, RES Date of Service: 05/25/2411/12/2199 ECG/ECG 12 lead ECG: increasing troponins Copies to: Test Reason : Blood Pressure : */* mmHG Vent. Rate : 81 BPM Atrial Rate : 81 BPM P-R Int : 134 ms QRS Dur : 94 ms QT Int : 386 ms P-R-T Axes : 38 44 184 degrees QTcB Int : 448 ms Sinus rhythm with premature atrial complexes Abnormal ECG Confirmed by JARROD CARDENAS FACC, GOPI ([id number]) on 05/26/2024 2:19:26 PM Referred By: Electronically Signed By: GOPI GARAY MD [facility] Transcribed By: MUS Signed By Gopi Garay MD, FACC 05/26/24 1419 TROPONIN I HIGH SENSITIVITY Collected: 05/25/2024 10: 27 PM Status: F Source: [facility] TYPE CODE TESTS RESULT OUT OF RANGE REFERENCE UNITS LAB HS TROP Troponin I High Sensitivity 1308.7 High Off Scale 0.0-15.0 pg/mL Result Comment: Critical Res ult : Called to and read back by: MOUNA LAKE at: 05/25/2024 23:48:19 by:URI PERFORMED BY: [place] [address] PATHOLOGIST MATERIALS ENGINEER JACQUE SHER M.D. Performed By: #### HS TROP # ### [place] [id number] [facility] TROPONIN I HIGH SENSITIVITY Collected: 05/25/2024 5:4 0 PM Status: F Source: [facility] TYPE CODE TESTS RESULT OUT OF RANGE REFERENCE UNITS LAB HS TROP Troponin I High Sensitivity 1207.5 High Off Scale 0.0-15.0 pg/mL Result Comment: Critical Res ult : Called to and read back by: LAUREN RUSSELL at: 05/25/2024 18:26:52 by:[id number] PERFORMED BY: [place] [address] PATHOLOGIST MATERIALS ENGINEER JACQUE SHER M.D. Performed By: #### HS TROP # ### [place] [id number] [facility] ECG 12 LEAD ECG Observed: 05/25/2024 4:21 PM Status: COMPLETED Source: [facility] [place] [address] Electrocardiograph Report Signed Patient: Lupe Butler MR#: [id number] 1 : 1950 Acct:[id number] Age/Sex: 73 / F ADM Date: 05/25/24 Loc: Room: [address] [place] [address] Type: ADM IN Attending Dr: Sam Carpio DO Ordering Provider: Carlton Lazaro DO Date of Service: 05/25/2411/12/1630 ECG/ECG 12 lead ECG: Weakness Copies to: Test Reason : Blood Pressure : 94/47 mmHG Vent. Rate : 82 BPM Atrial Rate : 82 BPM P-R Int : 134 ms QRS Dur : 88 ms QT Int : 380 ms P-R-T Axes : 60 24 128 degrees QTcB Int : 443 ms Sinus rhythm with premature atrial complexes Possible Left atrial enlargement Left ventricular hypertrophy with repolarization abnormality Abnormal ECG When compared with ECG of 25-May-2024 13:29, (Unconfirmed) Sinus rhythm has replaced Atrial fibrillation Vent. rate has decreased by 42 bpm T wave inversion no longer evident in Inferior leads Confirmed by CARLTON LAZARO DO ([id number]) on 05/25/2024 7:30:02 PM Referred By: Electronically Signed By: CARLTON LAZARO DO Transcribed By: MUS Signed By Carlton Lazaro DO 1929 LACTIC ACID Collected: 4 2:57 PM Status: F Source: [facility] TYPE CODE TESTS RESULT OUT OF RANGE REFERENCE UNITS LAB LACTIC Lactic Acid 0.9 0.5-2.2 mmol/L Result Comment: PERFORMED BY : [place] [address] PATHOLOGIST MATERIALS ENGINEER JACQUE SHER M.D. Performed By: #### LACTIC ## ## [address] [address] [place] XR CHEST 1V PORTABLE Observed: 4 2:10 PM Status: COMPLETED Source: [facility] ENTER [place] [id number] XRay Report Signed Patient: Lupe Butler MR#: [id number] 1 : 1950 Acct:[id number] Age/Sex: 73 / F ADM Date: 05/25/24 Loc: ER Room: Type: [facility] ER Attending Dr: Copies to: Carlton Lazaro DO Ordering Provider: Carlton Lazaro DO Date of Service: 05/25/24 XR/XR chest 1V portable: Weakness Plain film chest Single view HISTORY: Generalized weakness COMPARISON: 05/20/2024 FINDINGS: SUPPORT DEVICES: Dialysis catheter [id number] unchanged POSTSURGICAL CHANGES: CABG HEART: Within normal limits PULMONARY [place]USTA: Within normal limits MEDIASTINUM: Unremarkable LUNGS AND PLEURA: Mild basilar pleural-parenchymal densities redemonstrated. No new consolidation or pneumothorax. BONY STRUCTURES: Intact ADDITIONAL FINDINGS None XR/XR chest 1V portable IMPRESSION: Similar mild basilar pleural-parenchymal changes. No new findings. Impression dictated by: Surendra Peña M.D.05/25/2024 2:12 PM Dictation Location: [facility] Transcribed By: [facility] 05/25/24 1412 Dictated By: Surendra Peña DO 05/25/24 1410 Signed By: <Electronically signed by Surendra Peña DO in OV> 05/25/24 1412 BLOOD CULTURE Observed: 05/25/2024 1:49 PM Status: F Source: [facility] NO GROWTH 5 DAYS PERFORMED BY: [place] [address] PATHOLOGIST MATERIALS ENGINEER JACQUE SHER M.D. Performed By: #### PT, BNP, CUBLD, CBC, BMP, CK, HS TROP #### [place] [id number] [facility] BLOOD CULTURE Observed: 05/25/2024 1:40 PM Status: F Source: [facility] NO GROWTH 5 DAYS PERFORMED BY: [address] [address] PATHOLOGIST MATERIALS ENGINEER JACQUE SHER M.D. Performed By: #### PT, BNP, CUBLD, CBC, BMP, CK, HS TROP #### [facility] [address] [id number] [facility] COMPLETE BLOOD COUNT AUTO DIFF Collected: 05/25/2024 1:30 PM Status: F Source: [facility] TYPE CODE TESTS RESULT OUT OF RANGE REFERENCE UNITS LAB WBC White Blood Count 13.3 High 3.8-11.6 10*3/uL LAB UNWBC Uncorrected WBC 13.3 High 3.8-11.6 10*3/uL LAB RBC Red Blood Count 4.04 Normal 3.60-5.00 LAB HGB Hemoglobin 10.0 Low 11.8-15.4 g/dL LAB HCT Hematocrit 30.9 Low 34.0-46.4 % LAB MCV Mean Corpuscular Volume 76.4 Low 80-100 fL LAB MCH Mean Corpuscular Hemoglobin 24.8 Normal 24.7-34.3 pg LAB MCHC Mean Corpuscular HGB Conc 32.5 Normal 32.0-35.0 g/dL LAB RDW Red Cell Distribution Width 21.6 High 11.9-15.3 % LAB PLT Platelet Count 317 Normal 150-450 10*3/uL LAB MPV Mean Platelet Volume 8.3 Normal 6.3-10.7 fL LAB MDW Monocyte Distribution Width 22.36 High 0.00-20.00 % Result Comment: For adults i n ED, MDW > 20.0 may be associated with a higher risk of sepsis during the first 12 hrs of hospital admission LAB NE% Neutrophils % (Auto) 75.4 . % LAB LY% Lymphocytes % (Auto) 15.2 . % LAB MO% Monocytes % (Auto) 6.5 . % LAB EO% Eosinophils % (Auto) 1.4 . % LAB BA% Basophils % (Auto) 1.5 . % LAB NRBC% NRBC% 0.1 Normal 0-0.5 /100{WBC } LAB NE# Neutrophils # (Auto) 10.1 High 1.8-7.7 10*3/uL LAB LY# Lymphocytes # (Auto) 2.0 Normal 1.00-4.8 10*3/uL LAB MO# Monocytes # (Auto) 0.9 High 0.0-0.8 10*3/uL LAB EO# Eosinophils # (Auto) 0.2 Normal 0.0-0.45 10*3/uL LAB BA# Basophils # (Auto) 0.2 Normal 0.0-0.2 10*3/uL Result Comment: PERFORMED BY : [place] [address] PATHOLOGIST MATERIALS ENGINEER JACQUE SHER M.D. Performed By: #### PT, BNP, CUBLD, CBC, BMP, CK, HS TROP #### [facility] [address] [id number] [facility] BASIC METABOLIC PANEL Collected: 05/25/2024 1:30 PM Status: F Source: [facility] TYPE CODE TESTS RESULT OUT OF RANGE REFERENCE UNITS LAB GLU Glucose 92 Normal 70-100 mg/dL Result Comment: Random Gluco se Reference Range is dependent on time and content of last meal. Glucose of more than 200 mg/dL in a nonstressed, ambulatory subject supports the diagnosis of Diabetes Mellitus. ADA recommended reference range LAB BUN Blood Urea Nitrogen 59 High 7-25 mg/dL LAB CREATT Creatinine 8.00 High 0.60-1.20 mg/dL LAB GFReNR Estimated GFR 4.967 LAB NA Sodium 135 Low 136-145 mmol/L LAB K Potassium 4.3 Normal 3.5-5.1 mmol/L LAB CL Chloride 96 Low 98-107 mmol/L LAB CO2 Carbon Dioxide 23.6 Normal 21.0-31.0 mmol/L LAB GAP Anion Gap 19.7 High 6.0-15.0 LAB CA Calcium 8.9 Normal 8.6-10.3 mg/dL LAB CRCLPHA Creatinine Clr Calc Pharmacy 6.07 Result Comment: PERFORMED BY : [facility] [address] [place] [address] PATHOLOGIST MATERIALS ENGINEER JACQUE SHER M.D. Performed By: #### PT, BNP, CUBLD, CBC, BMP, CK, HS TROP #### [facility] [address] [place] [address] [facility] B-TYPE NATRIURETIC PEPTIDE Collected: 05/25/2024 1:30 PM Status: F Source: [facility] TYPE CODE TESTS RESULT OUT OF RANGE REFERENCE UNITS LAB BNP B-Type Natriuretic Peptide 1250.0 High 5-100 pg/mL Result Comment: PERFORMED BY : [facility] [address] [place] [address] PATHOLOGIST MATERIALS ENGINEER JACQUE SHER M.D. Performed By: #### PT, BNP, CUBLD, CBC, BMP, CK, HS TROP #### [place] [id number] [facility] PROTHROMBIN TIME INR Collected: 05/25/2024 1:30 PM S tatus: F Source: [facility] TYPE CODE TESTS RESULT OUT OF RANGE REFERENCE UNITS LAB R PT Prothrombin Time 17.1 High 9.0-12.9 s Result Comment: A hematocrit value greater than 55% may lead to inaccurate results in coagulation testing. Patients having hematocrit values >55% require a special collection tube for coagulation studies. Please contact the laboratory at [phone] for redraw instructions. LAB INR INR 1.5 Result Comment: INR Therapeu tic Range A) Pre- and Peroperative OAT started two weeks before surgery. NOT HIP SURGERY: 1.5 - 2.5 HIP SURGERY: 2 - 3 B) Primary and secondary prevention of venous THROMBOSIS: 2 - 3 C) Active venous thrombosis, pulmonary embolism and prevention of recurrent venous thrombosis: 2 - 3 D) Prevention of arterial thromboembolism including patients with mechanical heart valves: 3 - 4.5 PERFORMED BY: [place] [address] PATHOLOGIST MATERIALS ENGINEER JACQUE SHER M.D. Performed By: #### PT, BNP, CUBLD, CBC, BMP, CK, HS TROP #### [place] [id number] [facility] CREATINE KINASE Collected: 05/25/2024 1:30 PM Status : F Source: [facility] TYPE CODE TESTS RESULT OUT OF RANGE REFERENCE UNITS LAB CK Creatine Kinase 73 Normal 30-223 U/L Performed By: #### PT, BNP, CUBLD, CBC, BMP, CK, HS TROP #### [place] [id number] [facility] TROPONIN I HIGH SENSITIVITY Collected: 05/25/2024 1:3 0 PM Status: F Source: [facility] TYPE CODE TESTS RESULT OUT OF RANGE REFERENCE UNITS LAB HS TROP Troponin I High Sensitivity 994.4 High Off Scale 0.0-15.0 pg/mL Result Comment: Critical Res ult : Called to and read back by: LAUREN RUSSELL at: 05/25/2024 15:07:02 by:[id number] PERFORMED BY: [place] [address] PATHOLOGIST MATERIALS ENGINEER JACQUE SHER M.D. Performed By: #### PT, BNP, CUBLD, CBC, BMP, CK, HS TROP #### [facility] [address] [place] [address] ECG 12 LEAD ECG Observed: 05/25/2024 1:29 PM Status: COMPLETED Source: [facility] ENTER [facility] Main [place] [address] [place] [address] Electrocardiograph Report Signed Patient: Lupe Butler MR#: [id number] 1 : 1950 Acct:[id number] Age/Sex: 73 / F ADM Date: 05/25/24 Loc: Room: [address] [place] [address] Type: ADM IN Attending Dr: Sam Carpio DO Ordering Provider: Carlton Lazaro DO Date of Service: 05/25/2411/12/1329 ECG/ECG 12 lead ECG: Weakness Copies to: Test Reason : Blood Pressure : 74/38 mmHG Vent. Rate : 124 BPM Atrial Rate : 102 BPM P-R Int : * ms QRS Dur : 80 ms QT Int : 266 ms P-R-T Axes : * 24 181 degrees QTcB Int : 382 ms Atrial fibrillation with rapid ventricular response Voltage criteria for left ventricular hypertrophy Marked ST abnormality, possible lateral subendocardial injury Abnormal ECG When compared with ECG of 20-May-2024 02:51, No significant change was found Confirmed by CARLTON LAZARO DO ([id number]) on 05/25/2024 7:30:35 PM Referred By: Electronically Signed By: CARLTON LAZARO DO Transcribed By: MUS Signed By Carlton Lazaro DO 1929 CNPN Observed: 05/22/2024 12:00 AM Status: COMPLETED Source: [facility] Telephone (HEMTSA) LUPE BUTLER ([id number]) 1950 F Date Time Provider Department 05/22/24 PHAM PROCTOR During your visit today, we recorded the following information about you: Pham Proctor RN 05/22/2024 2:30 PM Signed DISCHARGE CALL BACK Today's date: May 22, 2024 Notified of Pt discharge by: Medical Records Patient discharged on 05/21/24 from [facility] 4P to Home Primary Cancer Diagnosis: Lung Cancer Admitting Diagnosis: Acute Hypoxic and hypercapnic respiratory failure requiring intubation and MV, CANDACE on CKD, Afib w/ RVR, Critical illness myopathy. Discharge Summary/SBAR reviewed: Yes Handoff Discussed with Transitional Pharmacy Data Analyst: N/A Psychosocial Risk Factors: None If patient discharged to SNF/Rehab Facility, phone call completed to reinforce discharge instructions and follow up: N/A Call Disposition: Provided call back number on patient's voice mail requesting a return call to discuss recent discharge,upcoming appts, and any issues. LIU Silva Rebecca, RN 05/25/2024 2:13 PM Addendum FYI: Spoke w/ pt's spouse who reports the pt is currently back at [facility] ER due to weakness and low blood pressure. Nurse in the background states that she will likely be admitted. Spouse notified of her upcoming appointment on 06/08. Verbalizes understanding and states that she may need to go to a rehab facility moving forward. Reassured pt's spouse that we can adjust pt's appointment if needed. Leilani: Please scan ER records when available. Thanks! Pham Proctor RN Allergies As of Date: 05/22/2024 Noted Allergy Reaction MORPHINE 09/08/2009 1 - Mental Status Change LATEX 08/13/2023 9 - Itching NITROFURAN [place]NALOGUES 07/07/2001 SULFA (SULFONAMIDE ANTIBIOTICS) 07/07/2001 Date Reviewed: 05/06/2024 Reviewed by: Mehnaz Duran PAMadonna - Fully Assessed Reason for Visit: Care Coordination [9554] Cmt: Discharge Follow Up Prescriptions as of 05/26/2024 - predniSONE (DELTASONE) 20 mg tablet Take 2 tablets by mouth once daily. - amLODIPine (NORVASC) 10 mg tablet Take 1 tablet by mouth every afternoon. - furosemide (LASIX) 20 mg tablet Take 20 mg by mouth once daily as needed. - nitroglycerin sublingual (NITROQUICK) 0.4 mg SL tablet Dissolve 0.4 mg under the tongue every 5 minutes as needed for chest pain. - HYDROcodone-Acetaminophen (NORCO) 7.5-325 mg per tablet Take 1 tablet by mouth every 8 hours as needed for pain. - metoprolol tartrate 75 mg tab Take 75 mg by mouth twice daily. - alprazolam(XANAX 0.5 MG TAB) Take one(1) tablet two (2) times daily. Problem List As Of Date 05/22/2024 Noted Resolved Anxiety and depression [F41.9, F32.A] LUMBAGO [M54.50] Essential hypertension [I10] Other and Unspecified Hyperlipidemia [E78.5] COUGH [R05.9] 08/15/2001 TIA (Transient Ischemic Attack) [G45.9] 09/08/2009 Anemia [D64.9] 09/11/2009 SUMMARY [V999.95] 09/12/2009 PVD (peripheral vascular disease) (HCC) [I73.9] 12/21/2022 Difficult intubation [T88.4XXA] 12/21/2022 History of carotid endarterectomy [Z98.890] 12/21/2022 Smoker [F17.200] 12/21/2022 Atherosclerosis of [place] coronary artery of na*12/21/2022 NASIR (obstructive sleep apnea) [G47.33] 12/21/2022 Palpitations [R00.2] 12/21/2022 Opioid use [F11.90] 12/21/2022 Obesity (BMI 30.0-34.9) [E66.811] 12/21/2022 Blood pressure instability [I99.8] 12/25/2022 Primary lung cancer with metastasis from lung t*01/15/2023 Encounter Status:Closed by PHAM PROCTOR on 05/26/24 GLUCOSE POCT GLUCOMETERS Collected: 05/21/2024 11:19 AM Status: F Source: [facility] TYPE CODE TESTS RESULT OUT OF RANGE REFERENCE UNITS LAB GLUPOC Glucose Poc Glucometers 92 mg/dL Result Comment: Random Gluco se Reference Range is dependent on time and content of last meal. Glucose of more than 200 mg/dL in a nonstressed, ambulatory subject supports the diagnosis of Diabetes Mellitus. PERFORMED BY: [address] [place] [address] PATHOLOGIST MATERIALS ENGINEER JACQUE SHER M.D. Performed By: #### GLULS ### # Point of Care testing , GLUCOSE POCT GLUCOMETERS Collected: 05/21/2024 7:32 A M Status: F Source: [facility] TYPE CODE TESTS RESULT OUT OF RANGE REFERENCE UNITS LAB GLUPOC Glucose Poc Glucometers 100 mg/dL Result Comment: Random Gluco se Reference Range is dependent on time and content of last meal. Glucose of more than 200 mg/dL in a nonstressed, ambulatory subject supports the diagnosis of Diabetes Mellitus. PERFORMED BY: [facility] [address] [place] [address] PATHOLOGIST MATERIALS ENGINEER JACQUE SHER M.D. Performed By: #### GLULS ### # Point of Care testing , GLUCOSE POCT GLUCOMETERS Collected: 05/20/2024 10:14 PM Status: F Source: [facility] TYPE CODE TESTS RESULT OUT OF RANGE REFERENCE UNITS LAB GLUPOC Glucose Poc Glucometers 130 mg/dL Result Comment: Random Gluco se Reference Range is dependent on time and content of last meal. Glucose of more than 200 mg/dL in a nonstressed, ambulatory subject supports the diagnosis of Diabetes Mellitus. PERFORMED BY: [facility] [address] [place] [address] PATHOLOGIST MATERIALS ENGINEER JACQUE SHER M.D. Performed By: #### GLULS ### # Point of Care testing , GLUCOSE POCT GLUCOMETERS Collected: 05/20/2024 7:12 P M Status: F Source: [facility] TYPE CODE TESTS RESULT OUT OF RANGE REFERENCE UNITS LAB GLUPOC Glucose Poc Glucometers 260 mg/dL Result Comment: Random Gluco se Reference Range is dependent on time and content of last meal. Glucose of more than 200 mg/dL in a nonstressed, ambulatory subject supports the diagnosis of Diabetes Mellitus. PERFORMED BY: [address] [address] PATHOLOGIST MATERIALS ENGINEER JACQUE SHER M.D. Performed By: #### GLULS ### # Point of Care testing , GLUCOSE POCT GLUCOMETERS Collected: 05/20/2024 4:12 P M Status: F Source: [facility] TYPE CODE TESTS RESULT OUT OF RANGE REFERENCE UNITS LAB GLUPOC Glucose Poc Glucometers 110 mg/dL Result Comment: Random Gluco se Reference Range is dependent on time and content of last meal. Glucose of more than 200 mg/dL in a nonstressed, ambulatory subject supports the diagnosis of Diabetes Mellitus. PERFORMED BY: [address] [address] PATHOLOGIST MATERIALS ENGINEER JACQUE SHER M.D. Performed By: #### GLULS ### # Point of Care testing , GLUCOSE POCT GLUCOMETERS Collected: 05/20/2024 3:00 P M Status: F Source: [facility] TYPE CODE TESTS RESULT OUT OF RANGE REFERENCE UNITS LAB GLUPOC Glucose Poc Glucometers 126 mg/dL Result Comment: Random Gluco se Reference Range is dependent on time and content of last meal. Glucose of more than 200 mg/dL in a nonstressed, ambulatory subject supports the diagnosis of Diabetes Mellitus. PERFORMED BY: [address] [address] PATHOLOGIST MATERIALS ENGINEER JACQUE SHER M.D. Performed By: #### GLULS ### # Point of Care testing , XR CHEST 1V PORTABLE Observed: 10:55 AM Status: COMPLETED Source: [facility] ENTER [facility] Main [address] [address] XRay Report Signed Patient: Lupe Butler MR#: [id number] 1 : 1950 Acct:[id number] Age/Sex: 73 / F ADM Date: 05/09/24 Loc: Room: 1L0650-6 Type: ADM IN Attending Dr: Mike Zamorano MD Copies to: MD Goldie Schaefer MD Ordering Provider: Goldie Mcmillan MD Date of Service: 05/20/24 XR/XR chest 1V portable: hypoxia PORTABLE AP ERECT CHEST 0856 hours CLINICAL HISTORY: Hypoxia COMPARISON: 05/16/2024 There are median sternotomy wires. A new left-sided dialysis catheter is present with tip overlying the right atrium toward the inferior vena cava. A right-sided Msthch-l-Dxzi catheter is again visualized. There is blunting of the right costophrenic angle suggesting a small effusion. There is subtle groundglass parenchymal changes at the lower lungs. Though is interval improvement since the prior, particularly on the left. No pneumothorax identified. The heart is top normal in size. There is mitral valve calcification. The bony structures are osteopenic. Endplate spurring is seen. XR/XR chest 1V portable IMPRESSION: IMPROVING PLEURAL-PARENCHYMAL CHANGES. Impression dictated by: Dasha Sam M.D.05/20/2024 10:56 AM Dictation Location: [place] [address] Transcribed By: [facility] 05/20/24 1056 Dictated By: Dasha Sam MD 05/20/24 1055 Signed By: <Electronically signed by MD Dasha Sam in OV> 05/20/24 1056 GLUCOSE POCT GLUCOMETERS Collected: 05/20/2024 7:28 A M Status: F Source: [facility] TYPE CODE TESTS RESULT OUT OF RANGE REFERENCE UNITS LAB GLUPOC Glucose Poc Glucometers 106 mg/dL Result Comment: Random Gluco se Reference Range is dependent on time and content of last meal. Glucose of more than 200 mg/dL in a nonstressed, ambulatory subject supports the diagnosis of Diabetes Mellitus. PERFORMED BY: [place] [address] [place] [address] PATHOLOGIST MATERIALS ENGINEER JACQUE SHER M.D. Performed By: #### GLULS ### # Point of Care testing , BASIC METABOLIC PANEL Collected: 2023 5:38 AM Status: F Source: [facility] TYPE CODE TESTS RESULT OUT OF RANGE REFERENCE UNITS LAB GLU Glucose 93 Normal 70-100 mg/dL Result Comment: Random Gluco se Reference Range is dependent on time and content of last meal. Glucose of more than 200 mg/dL in a nonstressed, ambulatory subject supports the diagnosis of Diabetes Mellitus. ADA recommended reference range LAB BUN Blood Urea Nitrogen 69 High 7-25 mg/dL LAB CREATT Creatinine 6.06 Increased 0.60-1.20 mg/dL LAB GFReNR Estimated GFR 6.932 LAB NA Sodium 132 Low 136-145 mmol/L LAB K Potassium 4.4 Normal 3.5-5.1 mmol/L LAB CL Chloride 94 Low 98-107 mmol/L LAB CO2 Carbon Dioxide 22.7 Normal 21.0-31.0 mmol/L LAB GAP Anion Gap 19.7 High 6.0-15.0 LAB CA Calcium 8.2 Low 8.6-10.3 mg/dL LAB CRCLPHA Creatinine Clr Calc Pharmacy 7.35 Result Comment: PERFORMED BY : [place] [address] PATHOLOGIST MATERIALS ENGINEER JACUQE SHER M.D. Performed By: #### BMP #### [facility] [address] [place] [address] ECG 12 LEAD ECG Observed: 05/20/2024 2:51 AM Status: COMPLETED Source: [facility] [place] [address] Electrocardiograph Report Signed Patient: Lupe Butler MR#: [id number] 1 : 1950 Acct:[id number] Age/Sex: 73 / F ADM Date: 05/09/24 Loc: Room: 7M1096-3 Type: DIS IN Attending Dr: Mike Zamorano MD Ordering Provider: Joe Morel MD Date of Service: 05/20/24 ECG/ECG 12 lead ECG: rhythm check Copies to: Test Reason : Blood Pressure : */* mmHG Vent. Rate : 128 BPM Atrial Rate : * BPM P-R Int : * ms QRS Dur : 84 ms QT Int : 296 ms P-R-T Axes : * 33 191 degrees QTcB Int : 432 ms Atrial fibrillation with rapid ventricular response Nonspecific ST and T wave abnormality Abnormal ECG When compared with ECG of 18-May-2024 13:53, (Unconfirmed) Atrial fibrillation has replaced Sinus rhythm Vent. rate has increased by 58 bpm Confirmed by Malachi Clarke ([id number]) on 05/21/2024 9:00:44 PM Referred By: Electronically Signed By: Malachi Clarke Transcribed By: MUS Signed By Malachi Clarke MD 05/21/24 2100 GLUCOSE POCT GLUCOMETERS Collected: 05/19/2024 9:32 P M Status: F Source: [facility] TYPE CODE TESTS RESULT OUT OF RANGE REFERENCE UNITS LAB GLUPOC Glucose Poc Glucometers 177 mg/dL Result Comment: Random Gluco se Reference Range is dependent on time and content of last meal. Glucose of more than 200 mg/dL in a nonstressed, ambulatory subject supports the diagnosis of Diabetes Mellitus. PERFORMED BY: [address] [address] PATHOLOGIST MATERIALS ENGINEER JACQUE SHER M.D. Performed By: #### GLULS ### # Point of Care testing , GLUCOSE POCT GLUCOMETERS Collected: 05/19/2024 3:56 P M Status: F Source: [facility] TYPE CODE TESTS RESULT OUT OF RANGE REFERENCE UNITS LAB GLUPOC Glucose Poc Glucometers 143 mg/dL Result Comment: Random Gluco se Reference Range is dependent on time and content of last meal. Glucose of more than 200 mg/dL in a nonstressed, ambulatory subject supports the diagnosis of Diabetes Mellitus. LAB COMM1 Commemt1 Glu2: Cleaned Meter Result Comment: PERFORMED BY : [facility] [address] [facility] [place] [address] PATHOLOGIST MATERIALS ENGINEER JACQUE SHER M.D. Performed By: #### GLULS ### # Point of Care testing , GLUCOSE POCT GLUCOMETERS Collected: 05/19/2024 11:45 AM Status: F Source: [facility] TYPE CODE TESTS RESULT OUT OF RANGE REFERENCE UNITS LAB GLUPOC Glucose Poc Glucometers 128 mg/dL Result Comment: Random Gluco se Reference Range is dependent on time and content of last meal. Glucose of more than 200 mg/dL in a nonstressed, ambulatory subject supports the diagnosis of Diabetes Mellitus. LAB COMM1 Commemt1 Glu2: Cleaned Meter Result Comment: PERFORMED BY : [place] [address] PATHOLOGIST MATERIALS ENGINEER JACQUE SHER M.D. Performed By: #### GLULS ### # Point of Care testing , [facility] ECHO LIMITED Observed: 05/19/2024 10:18 AM Status: COMPLETED Source: [facility] [place] [address] Echocardiogram Signed Patient: Lupe Butler MR#: [id number] 1 : 1950 Acct:[id number] Age/Sex: 73 / F ADM Date: 05/09/24 Loc: Room: [address] [place] [address] Type: ADM IN Attending Dr: Mike Zamorano MD Ordering Provider: ELEAZAR PAN DO Date of Service: 05/19/24 [facility] echo limited: Severe Pulmonary HTN with acute hypoxic respiratory failure. Copies to: MD VIVIANE Morales [place] P DO Height: 64 in Weight: 142 lb Performed By: SHUN Otoole BSA: 1.7 m2 BP: 91/53 mmHg HR: 82 Reason For Study: Severe Pulmonary HTN with acute hypoxic respiratory failure. History: HTN, CABG, CAD, Hyperlipidemia, Left Lung Removed - 2 years ago,lung cancer, smoker, Breast implants Interpretation Summary Ejection Fraction = >70%. Left ventricular systolic function is hyperdynamic. A variety of Doppler measurements indicate impaired left ventricular relaxation, which is associated with grade I/IV or mild diastolic dysfunction. The left ventricular wall motion is normal. Severe concentric left ventricular hypertrophy. The left atrium appears mildly dilated. There is trace tricuspid regurgitation. Right ventricular systolic pressure is elevated at 40-50mmHg. There is no comparison study available. Procedure/Quality: A limited two-dimensional transthoracic echocardiogram with injection of contrast agent Definity was performed. The study was technically good in quality. Left Ventricle: The left ventricular size is normal. Severe concentric left ventricular hypertrophy. Hypertrophied papillary muscle. No left ventricular outflow tract obstruction seen. Ejection Fraction = >70%. Left ventricular systolic function is hyperdynamic. A variety of Doppler measurements indicate impaired left ventricular relaxation, which is associated with grade I/IV or mild diastolic dysfunction. The left ventricular wall motion is normal. Left Atrium: The left atrium appears mildly dilated. Right Atrium: The right atrium appears normal in size. Right Ventricle: The right ventricle is normal in size and function. Aortic Valve: The aortic valve is normal in structure. No hemodynamically significant valvular aortic stenosis. No aortic regurgitation is present. Mitral Valve: The mitral valve is normal in structure. There is mild mitral annular calcification. There is no mitral regurgitation noted. Tricuspid Valve: The tricuspid valve is normal in structure. There is trace tricuspid regurgitation. Right ventricular systolic pressure is elevated at 40-50mmHg. Pulmonic Valve: The pulmonic valve is not well visualized. Arteries: The aortic root is normal size. Pericardium/Pleura: No pericardial effusion seen. There is no pleural effusion. IVC/Hepatic Veins: The inferior vena cava is normal in size, with a normal collapsibility index. Measurements with Normals IVSd: 1.8 cm (0.7-1.1 cm)LVIDd: 3.2 cm (3.7-5.4 cm) LVPWd: 1.6 cm (0.7-1.1 cm)LVIDs: 1.7 cm (2.3-3.6 cm) LA dimension: 3.6 cm(2.3-4.0 cm)Ao root diam: 3.3 cm(2.0-3.6 cm) Doppler with Normals RVSP(TR): 47.1 mmHg (18-35mmHg) LV V1 max: 198.0 cm/sec(0.7-1.7m/s) MMode/2D Measurements Calculations RVDd: 2.9 cm FS: 46.9 % Ao root area: LVLd ap4: 7.2 cm EDV(Teich): 8.6 cm2 EDV(MOD-sp4): 41.0 ml 55.0 ml ESV(Teich): 8.4 ml LVLs ap4: 5.1 cm EF(Teich): 79.5 % ESV(MOD-sp4): 11.8 ml EF(MOD-sp4): 78.5 % __ SV(MOD-sp4): 43.2 ml Doppler Measurements Calculations MV max PG: Ao V2 max: LV V1 max PG: MR max rell: 61.0 mmHg 231.0 cm/sec 15.7 mmHg 391.0 cm/sec Ao max P.3 mmHgLV V1 mean PG: MR max P.6 mmHg Ao mean P.0 mmHg 12.0 mmHg LV V1 mean: Ao V2 mean: 137.0 cm/sec 161.0 cm/sec LV V1 VTI: 38.2 cm Ao V2 VTI: 42.1 cm __ TV max PG: TR max rell: 44.0 mmHg 332.0 cm/sec TR max P.1 mmHg RAP systole: 3.0 mmHg Transcribed By: ANDRAE Performed At: 05/19/24 1018 Signed By: Malachi Clarke MD 05/19/24 1205 GLUCOSE POCT GLUCOMETERS Collected: 05/19/2024 8:46 A M Status: F Source: [facility] TYPE CODE TESTS RESULT OUT OF RANGE REFERENCE UNITS LAB GLUPOC Glucose Poc Glucometers 82 mg/dL Result Comment: Random Gluco se Reference Range is dependent on time and content of last meal. Glucose of more than 200 mg/dL in a nonstressed, ambulatory subject supports the diagnosis of Diabetes Mellitus. LAB COMM1 Commemt1 Glu2: Cleaned Meter Result Comment: PERFORMED BY : [facility] [address] [place] [address] PATHOLOGIST MATERIALS ENGINEER JACQUE SHER M.D. Performed By: #### GLULS ### # Point of Care testing , GLUCOSE POCT GLUCOMETERS Collected: 05/19/2024 7:49 A M Status: F Source: [facility] TYPE CODE TESTS RESULT OUT OF RANGE REFERENCE UNITS LAB GLUPOC Glucose Poc Glucometers 107 mg/dL Result Comment: Random Gluco se Reference Range is dependent on time and content of last meal. Glucose of more than 200 mg/dL in a nonstressed, ambulatory subject supports the diagnosis of Diabetes Mellitus. LAB COMM1 Commemt1 Glu2: Cleaned Meter Result Comment: PERFORMED BY : [place] [address] PATHOLOGIST MATERIALS ENGINEER JACQUE SHER M.D. Performed By: #### GLULS ### # Point of Care testing , BASIC METABOLIC PANEL Collected: 2023 5:00 AM Status: F Source: [facility] TYPE CODE TESTS RESULT OUT OF RANGE REFERENCE UNITS LAB GLU Glucose 91 Normal 70-100 mg/dL Result Comment: Random Gluco se Reference Range is dependent on time and content of last meal. Glucose of more than 200 mg/dL in a nonstressed, ambulatory subject supports the diagnosis of Diabetes Mellitus. ADA recommended reference range LAB BUN Blood Urea Nitrogen 47 High 7-25 mg/dL LAB CREATT Creatinine 4.56 Increased 0.60-1.20 mg/dL LAB GFReNR Estimated GFR 9.752 LAB NA Sodium 130 Low 136-145 mmol/L LAB K Potassium 3.7 Normal 3.5-5.1 mmol/L LAB CL Chloride 92 Low 98-107 mmol/L LAB CO2 Carbon Dioxide 26.9 Normal 21.0-31.0 mmol/L LAB GAP Anion Gap 14.8 Normal 6.0-15.0 LAB CA Calcium 7.9 Low 8.6-10.3 mg/dL LAB CRCLPHA Creatinine Clr Calc Pharmacy 12.64 Result Comment: PERFORMED BY : [place] [address] PATHOLOGIST MATERIALS ENGINEER JACQUE SHER M.D. Performed By: #### MG, BMP # ### [facility] [address] [place], [place] [id number] [facility] MAGNESIUM Collected: 5:00 AM Status: F Source: [facility] TYPE CODE TESTS RESULT OUT OF RANGE REFERENCE UNITS LAB MG Magnesium 2.0 Normal 1.9-2.7 mg/dL Result Comment: PERFORMED BY : [place] [id number] PATHOLOGIST MATERIALS ENGINEER JACQUE SHER M.D. Performed By: #### MG, BMP # ### [facility] [address] [place] [address] [facility] GLUCOSE POCT GLUCOMETERS Collected: 05/18/2024 8:34 P M Status: F Source: [facility] TYPE CODE TESTS RESULT OUT OF RANGE REFERENCE UNITS LAB GLUPOC Glucose Poc Glucometers 204 mg/dL Result Comment: Random Gluco se Reference Range is dependent on time and content of last meal. Glucose of more than 200 mg/dL in a nonstressed, ambulatory subject supports the diagnosis of Diabetes Mellitus. PERFORMED BY: [place] [address] PATHOLOGIST MATERIALS ENGINEER JACQUE SHER M.D. Performed By: #### GLULS ### # Point of Care testing , GLUCOSE POCT GLUCOMETERS Collected: 05/18/2024 5:18 P M Status: F Source: [facility] TYPE CODE TESTS RESULT OUT OF RANGE REFERENCE UNITS LAB GLUPOC Glucose Poc Glucometers 136 mg/dL Result Comment: Random Gluco se Reference Range is dependent on time and content of last meal. Glucose of more than 200 mg/dL in a nonstressed, ambulatory subject supports the diagnosis of Diabetes Mellitus. PERFORMED BY: [address] [address] PATHOLOGIST MATERIALS ENGINEER JACQUE SHER M.D. Performed By: #### GLULS ### # Point of Care testing , ECG 12 LEAD ECG Observed: 05/18/2024 1:53 PM Status: COMPLETED Source: [facility] Main [address] [address] Electrocardiograph Report Signed Patient: Lupe Butler MR#: [id number] 1 : 1950 Acct:[id number] Age/Sex: 73 / F ADM Date: 05/09/24 Loc: Room: [address] [place] [address] Type: DIS IN Attending Dr: Mike Zamorano MD Ordering Provider: Jackson Maki DO Date of Service: 05/18/24 ECG/ECG 12 lead ECG: per orders Copies to: Test Reason : Blood Pressure : 124/59 mmHG Vent. Rate : 70 BPM Atrial Rate : 70 BPM P-R Int : 134 ms QRS Dur : 86 ms QT Int : 408 ms P-R-T Axes : 81 42 144 degrees QTcB Int : 440 ms Sinus rhythm with premature atrial complexes Biatrial enlargement Left ventricular hypertrophy with repolarization abnormality Abnormal ECG When compared with ECG of 18-May-2024 13:49, (Unconfirmed) Sinus rhythm has replaced Atrial fibrillation Vent. rate has decreased by 44 bpm Confirmed by Malachi Clarke ([id number]) on 05/21/2024 9:00:07 PM Referred By: Electronically Signed By: Malachi Clarke Transcribed By: MUS Signed By Malachi Clarke MD 05/21/242099 ECG 12 LEAD ECG Observed: 05/18/2024 1:49 PM Status: COMPLETED Source: [facility] [place] [address] Electrocardiograph Report Signed Patient: Lupe Butler MR#: [id number] 1 : 1950 Acct:[id number] Age/Sex: 73 / F ADM Date: 05/09/24 Loc: Room: [address] [place] [address] Type: DIS IN Attending Dr: Mike Zamorano MD Ordering Provider: Jackson Maki DO Date of Service: 05/18/24 ECG/ECG 12 lead ECG: per orders Copies to: Test Reason : Blood Pressure : 124/59 mmHG Vent. Rate : 114 BPM Atrial Rate : 357 BPM P-R Int : * ms QRS Dur : 96 ms QT Int : 348 ms P-R-T Axes : * 54 169 degrees QTcB Int : 479 ms Atrial fibrillation with rapid ventricular response Voltage criteria for left ventricular hypertrophy Marked ST abnormality, possible inferolateral subendocardial injury Abnormal ECG When compared with ECG of 09-May-2024 17:49, Atrial fibrillation has replaced Sinus rhythm ST now depressed in Inferior leads ST now depressed in Anterolateral leads T wave inversion now evident in Inferior leads T wave inversion now evident in Anterior leads Confirmed by Malachi Clarke ([id number]) on 05/21/2024 8:59:55 PM Referred By: Electronically Signed By: Malachi Clarke Transcribed By: MUS Signed By Malachi Clarke MD 05/21/242058 HEPATITIS ACUTE PANEL Collected: 05/18/2024 10:30 AM Status: F Source: [facility] TYPE CODE TESTS RESULT OUT OF RANGE REFERENCE UNITS LAB HAAB Hepatitis A Antibody IgM Negative Negative Result Comment: A negative a nti-HAV IgM result suggests no recent or current HAV infection. LAB HCBIGM Hepatitis B Core Antibody IgM Negative Negative LAB HBSAG SCR HBsAg Screen Negative Negative LAB HCV AB. Hepatitis C Virus Antibody Non Reactive Non Reactive LAB RFXHEPCINTERP Interpretation Hepatitis C Comment . Result Comment: Not infected with HCV unless early or acute infection is suspected (which may be delayed in an immunocompromised individual), or other evidence exists to indicate HCV infection. Performed By: #### HBCAB, NAMAN PACUTE, HBSAB #### [facility] , HEPATITIS B SURFACE ANTIBODY Collected: 05/18/2024 10:30 AM Status: F Source: [facility] TYPE CODE TESTS RESULT OUT OF RANGE REFERENCE UNITS LAB HBSAB Hepatitis B Surface Antibody Non Reactive . Result Comment: Non Reactive : Not immune to HBV infection. Equivocal: Unable to determine if anti-HBs is present at levels consistent with immunity. Reactive: Anti-HBs concentration detected at greater than 10 mIU/mL. Individual is considered to be immune to infection with HBV. Performed By: #### HBCAB, NAMAN [place]UTE, HBSAB #### [facility] , HEPATITIS B CORE ANTIBODY Collected: 10:30 AM Status: F Source: [facility] TYPE CODE TESTS RESULT OUT OF RANGE REFERENCE UNITS LAB HBCAB Hepatitis B Core Antibody Negative Negative Result Comment: Performed at : [facility] [id number] Cattle Tester: Stefan Simms PhD, Phone: [phone] PERFORMED BY: [place] [address] PATHOLOGIST MATERIALS ENGINEER JACQUE SHER M.D. Performed By: #### HBCAB, PACDOV, HBSAB #### [facility] , BASIC METABOLIC PANEL Collected: 2023 4:45 AM Status: F Source: [facility] TYPE CODE TESTS RESULT OUT OF RANGE REFERENCE UNITS LAB GLU Glucose 107 High 70-100 mg/dL Result Comment: Random Gluco se Reference Range is dependent on time and content of last meal. Glucose of more than 200 mg/dL in a nonstressed, ambulatory subject supports the diagnosis of Diabetes Mellitus. ADA recommended reference range LAB BUN Blood Urea Nitrogen 68 High 7-25 mg/dL LAB CREATT Creatinine 5.37 Increased 0.60-1.20 mg/dL LAB GFReNR Estimated GFR 8.014 LAB NA Sodium 131 Low 136-145 mmol/L LAB K Potassium 4.5 Normal 3.5-5.1 mmol/L LAB CL Chloride 95 Low 98-107 mmol/L LAB CO2 Carbon Dioxide 21.9 Normal 21.0-31.0 mmol/L LAB GAP Anion Gap 18.6 High 6.0-15.0 LAB CA Calcium 7.4 Low 8.6-10.3 mg/dL LAB CRCLPHA Creatinine Clr Calc Pharmacy 10.71 Result Comment: PERFORMED BY : [place] [address] PATHOLOGIST MATERIALS ENGINEER JACQUE SHER M.D. Performed By: #### BMP #### [address] GLUCOSE POCT GLUCOMETERS Collected: 05/18/2024 3:30 A M Status: F Source: [facility] TYPE CODE TESTS RESULT OUT OF RANGE REFERENCE UNITS LAB GLUPOC Glucose Poc Glucometers 141 mg/dL Result Comment: Random Gluco se Reference Range is dependent on time and content of last meal. Glucose of more than 200 mg/dL in a nonstressed, ambulatory subject supports the diagnosis of Diabetes Mellitus. PERFORMED BY: [place] [address] PATHOLOGIST MATERIALS ENGINEER JACQUE SHER M.D. Performed By: #### GLULS ### # Point of Care testing , GLUCOSE POCT GLUCOMETERS Collected: 05/17/2024 5:47 P M Status: F Source: [facility] TYPE CODE TESTS RESULT OUT OF RANGE REFERENCE UNITS LAB GLUPOC Glucose Poc Glucometers 151 mg/dL Result Comment: Random Gluco se Reference Range is dependent on time and content of last meal. Glucose of more than 200 mg/dL in a nonstressed, ambulatory subject supports the diagnosis of Diabetes Mellitus. PERFORMED BY: [place] [address] PATHOLOGIST MATERIALS ENGINEER JACQUE SHER M.D. Performed By: #### GLULS ### # Point of Care testing , GLUCOSE POCT GLUCOMETERS Collected: 05/17/2024 11:29 AM Status: F Source: [facility] TYPE CODE TESTS RESULT OUT OF RANGE REFERENCE UNITS LAB GLUPOC Glucose Poc Glucometers 111 mg/dL Result Comment: Random Gluco se Reference Range is dependent on time and content of last meal. Glucose of more than 200 mg/dL in a nonstressed, ambulatory subject supports the diagnosis of Diabetes Mellitus. PERFORMED BY: [place] [address] PATHOLOGIST MATERIALS ENGINEER JACQUE SHER M.D. Performed By: #### GLULS ### # Point of Care testing , BASIC METABOLIC PANEL Collected: 2023 5:30 AM Status: F Source: [facility] TYPE CODE TESTS RESULT OUT OF RANGE REFERENCE UNITS LAB GLU Glucose 182 High 70-100 mg/dL Result Comment: Random Gluco se Reference Range is dependent on time and content of last meal. Glucose of more than 200 mg/dL in a nonstressed, ambulatory subject supports the diagnosis of Diabetes Mellitus. ADA recommended reference range LAB BUN Blood Urea Nitrogen 42 High 7-25 mg/dL LAB CREATT Creatinine 3.57 Increased 0.60-1.20 mg/dL LAB GFReNR Estimated GFR 13.080 LAB NA Sodium 130 Low 136-145 mmol/L LAB K Potassium 4.0 Normal 3.5-5.1 mmol/L LAB CL Chloride 92 Low 98-107 mmol/L LAB CO2 Carbon Dioxide 25.5 Normal 21.0-31.0 mmol/L LAB GAP Anion Gap 16.5 High 6.0-15.0 LAB CA Calcium 7.9 Low 8.6-10.3 mg/dL LAB CRCLPHA Creatinine Clr Calc Pharmacy 13.55 Performed By: #### BMP, MG, TRIG #### [facility] [address] [place], [place] [id number] [facility] Collected: 5:30 AM Status: F Source: [facility] TYPE CODE TESTS RESULT OUT OF RANGE REFERENCE UNITS LAB MG Magnesium 2.0 Normal 1.9-2.7 mg/dL Performed By: #### BMP, MG, TRIG #### [facility] [address] [place] [id number] [facility] TRIGLYCERIDES Collected: 5:30 AM Status: F Source: [facility] TYPE CODE TESTS RESULT OUT OF RANGE REFERENCE UNITS LAB TRIG Triglycerides 284 High 35-149 mg/dL Result Comment: TRIG ATP III CLASSIFICATION TRIG less than 150 mg/dL Normal TRIG 150-199 mg/dL Borderline high TRIG 200-500 mg/dL High TRIG greater than 500 mg/dL Very high Standard traceable to the Center for Disease Conrtrol and Prevention (CDC) test method. PERFORMED BY: [place] [address] PATHOLOGIST MATERIALS ENGINEER JACQUE SHER M.D. Performed By: #### BMP, MG, TRIG #### [facility] [address] [place] [id number] [facility] COMPLETE BLOOD COUNT AUTO DIFF Collected: 05/17/2024 5:30 AM Status: F Source: [facility] TYPE CODE TESTS RESULT OUT OF RANGE REFERENCE UNITS LAB WBC White Blood Count 10.7 Normal 3.8-11.6 10*3/uL LAB UNWBC Uncorrected WBC 10.7 Normal 3.8-11.6 10*3/uL LAB RBC Red Blood Count 4.02 Normal 3.60-5.00 LAB HGB Hemoglobin 9.6 Low 11.8-15.4 g/dL LAB HCT Hematocrit 30.2 Low 34.0-46.4 % LAB MCV Mean Corpuscular Volume 75.2 Low 80-100 fL LAB MCH Mean Corpuscular Hemoglobin 24.0 Low 24.7-34.3 pg LAB MCHC Mean Corpuscular HGB Conc 31.9 Low 32.0-35.0 g/dL LAB RDW Red Cell Distribution Width 20.5 High 11.9-15.3 % LAB PLT Platelet Count 253 Normal 150-450 10*3/uL LAB MPV Mean Platelet Volume 9.4 Normal 6.3-10.7 fL LAB NE% Neutrophils % (Auto) 92.5 . % LAB LY% Lymphocytes % (Auto) 3.0 . % LAB MO% Monocytes % (Auto) 4.1 . % LAB EO% Eosinophils % (Auto) 0.1 . % LAB BA% Basophils % (Auto) 0.3 . % LAB NRBC% NRBC% 0.1 Normal 0-0.5 /100{WBC} LAB NE# Neutrophils # (Auto) 9.9 High 1.8-7.7 10*3/uL LAB LY# Lymphocytes # (Auto) 0.3 Low 1.00-4.8 10*3/uL LAB MO# Monocytes # (Auto) 0.4 Normal 0.0-0.8 10*3/uL LAB EO# Eosinophils # (Auto) 0.0 Normal 0.0-0.45 10*3/uL LAB BA# Basophils # (Auto) 0.0 Normal 0.0-0.2 10*3/uL Result Comment: PERFORMED BY : [place] [address] PATHOLOGIST MATERIALS ENGINEER JACQUE SHER M.D. Performed By: #### CBC #### [address] GLUCOSE POCT GLUCOMETERS Collected: 05/16/2024 6:31 P M Status: F Source: [facility] TYPE CODE TESTS RESULT OUT OF RANGE REFERENCE UNITS LAB GLUPOC Glucose Poc Glucometers 123 mg/dL Result Comment: Random Gluco se Reference Range is dependent on time and content of last meal. Glucose of more than 200 mg/dL in a nonstressed, ambulatory subject supports the diagnosis of Diabetes Mellitus. PERFORMED BY: [place] [address] PATHOLOGIST MATERIALS ENGINEER JACQUE SHER M.D. Performed By: #### GLULS ### # Point of Care testing , ARTERIAL BLOOD GAS Collected: 05/16/2024 2:54 PM Sta tus: F Source: [facility] TYPE CODE TESTS RESULT OUT OF RANGE REFERENCE UNITS LAB ARTPH ABG PH 7.42 Normal 7.35-7.45 LAB ARTPCO2 ABG PCO2 33.9 Low 35.0-45.0 mm[Hg] LAB ARTPO2 ABG PO2 96.9 Normal 80.0-100.0 mm[Hg] LAB ARTHCO3 ABG HCO3 21.5 Low 23.0-29.0 mmol/L LAB ARTBE ABG Base Excess -2.4 Normal -3.0-3.0 mmol/L LAB [id number] ABG Oxygen Saturation 97.3 Normal 95.0-100.0 % LAB [id number] ABG Oxygen Content 6.8 Normal 6.6-9.7 mmol/L LAB ARTTCO2 ABG TCO2 22.5 Low 23.0-27.0 mmol/L LAB ARTFIO2 ABG Frac Inspired O2 30 % LAB ARTPRESUP ABG Pressure Support 8.0 LAB VBDRAW VBG Draw Site Right Radial LAB CPAP CPAP 5.0 LAB RESPCRIT Respiratory Critical Result Comment: Critical Tanna ue called on: 05/16/2024 at 14:57 PERFORMED BY: [place] [address] PATHOLOGIST MATERIALS ENGINEER JACQUE SHER M.D. Performed By: #### ABG #### Point of Care testing , GLUCOSE POCT GLUCOMETERS Collected: 05/16/2024 12:08 PM Status: F Source: [facility] TYPE CODE TESTS RESULT OUT OF RANGE REFERENCE UNITS LAB GLUPOC Glucose Poc Glucometers 92 mg/dL Result Comment: Random Gluco se Reference Range is dependent on time and content of last meal. Glucose of more than 200 mg/dL in a nonstressed, ambulatory subject supports the diagnosis of Diabetes Mellitus. PERFORMED BY: [address] [address] PATHOLOGIST MATERIALS ENGINEER JACQUE SHER M.D. Performed By: #### GLULS ### # Point of Care testing , XR CHEST 1V PORTABLE Observed: 8:17 AM Status: COMPLETED Source: [facility] Main [address] [address] XRay Report Signed Patient: Lupe Butler MR#: [id number] 1 : 1950 Acct:[id number] Age/Sex: 73 / F ADM Date: 05/09/24 Loc: Room: [address] [place] [address] Type: ADM IN Attending Dr: Jackson Maki DO Copies to: MD Jackson Mcguire DO Ordering Provider: Wanda Frank MD Date of Service: 05/16/24 XR/XR chest 1V portable: resp failure XR chest 1V portable 05/15/2024 3:58 PM SIGNS AND SYMPTOMS: resp failure PROTOCOL: Frontal radiograph of the chest COMPARISON: 05/15/2024 FINDINGS: The trachea is midline. The ET tube and enteric tube are in similar position. There is evidence of prior sternotomy. There is a right-sided Tmkhby-r-Pyxo. Atherosclerotic changes are noted in the thoracic aorta. Surgical clips are noted along the pericardium on the left. Airspace opacities are noted with pleural effusion similar to the prior exam. The bony thorax is intact. XR/XR chest 1V portable IMPRESSION: Unchanged chest. Impression dictated by: Mike Higgins M.D.05/16/2024 8:22 AM Dictation Location: [place] [address] Transcribed By: [facility] 05/16/24821 Dictated By: Mike Higgins II, MD 05/16/24816 Signed By: <Electronically signed by Mike Higgins II, MD in OV> 05/16/24821 COMPLETE BLOOD COUNT AUTO DIFF Collected: 05/16/2024 5:45 AM Status: F Source: [facility] TYPE CODE TESTS RESULT OUT OF RANGE REFERENCE UNITS LAB WBC White Blood Count 9.1 Normal 3.8-11.6 10*3/uL LAB UNWBC Uncorrected WBC 9.1 Normal 3.8-11.6 10*3/uL LAB RBC Red Blood Count 3.94 Normal 3.60-5.00 LAB HGB Hemoglobin 9.5 Low 11.8-15.4 g/dL LAB HCT Hematocrit 29.4 Low 34.0-46.4 % LAB MCV Mean Corpuscular Volume 74.7 Low 80-100 fL LAB MCH Mean Corpuscular Hemoglobin 24.1 Low 24.7-34.3 pg LAB MCHC Mean Corpuscular HGB Conc 32.3 Normal 32.0-35.0 g/dL LAB RDW Red Cell Distribution Width 20.9 High 11.9-15.3 % LAB PLT Platelet Count 226 Normal 150-450 10*3/uL LAB MPV Mean Platelet Volume 9.0 Normal 6.3-10.7 fL LAB NE% Neutrophils % (Auto) 91.4 . % LAB LY% Lymphocytes % (Auto) 4.8 . % LAB MO% Monocytes % (Auto) 2.9 . % LAB EO% Eosinophils % (Auto) 0.1 . % LAB BA% Basophils % (Auto) 0.8 . % LAB NRBC% NRBC% 0.1 Normal 0-0.5 /100{WBC} LAB NE# Neutrophils # (Auto) 8.3 High 1.8-7.7 10*3/uL LAB LY# Lymphocytes # (Auto) 0.4 Low 1.00-4.8 10*3/uL LAB MO# Monocytes # (Auto) 0.3 Normal 0.0-0.8 10*3/uL LAB EO# Eosinophils # (Auto) 0.0 Normal 0.0-0.45 10*3/uL LAB BA# Basophils # (Auto) 0.1 Normal 0.0-0.2 10*3/uL Result Comment: PERFORMED BY : [place] [address] PATHOLOGIST MATERIALS ENGINEER JACQUE SHER M.D. Performed By: #### MG, CBC, BMP #### [address] BASIC METABOLIC PANEL Collected: 2023 5:45 AM Status: F Source: [facility] TYPE CODE TESTS RESULT OUT OF RANGE REFERENCE UNITS LAB GLU Glucose 117 High 70-100 mg/dL Result Comment: Random Gluco se Reference Range is dependent on time and content of last meal. Glucose of more than 200 mg/dL in a nonstressed, ambulatory subject supports the diagnosis of Diabetes Mellitus. ADA recommended reference range LAB BUN Blood Urea Nitrogen 58 High 7-25 mg/dL LAB CREATT Creatinine 4.58 Increased 0.60-1.20 mg/dL LAB GFReNR Estimated GFR 9.700 LAB NA Sodium 126 Low 136-145 mmol/L LAB K Potassium 4.8 Normal 3.5-5.1 mmol/L LAB CL Chloride 87 Low 98-107 mmol/L LAB CO2 Carbon Dioxide 23.9 Normal 21.0-31.0 mmol/L LAB GAP Anion Gap 19.9 High 6.0-15.0 LAB CA Calcium 7.8 Low 8.6-10.3 mg/dL LAB CRCLPHA Creatinine Clr Calc Pharmacy 9.73 Performed By: #### MG, CBC, BMP #### [facility] [address] MAGNESIUM Collected: 5:45 AM Status: F Source: [facility] TYPE CODE TESTS RESULT OUT OF RANGE REFERENCE UNITS LAB MG Magnesium 2.2 Normal 1.9-2.7 mg/dL Result Comment: PERFORMED BY : [place] [address] PATHOLOGIST MATERIALS ENGINEER JACQUE SHER M.D. Performed By: #### MG, CBC, BMP #### [facility] [address] [place], [place] [id number] [facility] ARTERIAL BLOOD GAS Collected: 05/16/2024 5:43 AM Sta tus: F Source: [facility] TYPE CODE TESTS RESULT OUT OF RANGE REFERENCE UNITS LAB ARTPH ABG PH 7.33 Low 7.35-7.45 LAB ARTPCO2 ABG PCO2 47.4 High 35.0-45.0 mm[Hg] LAB ARTPO2 ABG PO2 69.7 Low 80.0-100.0 mm[Hg] LAB ARTHCO3 ABG HCO3 24.4 Normal 23.0-29.0 mmol/L LAB ARTBE ABG Base Excess -1.7 Normal -3.0-3.0 mmol/L LAB [id number] ABG Oxygen Saturation 92.2 Low 95.0-100.0 % LAB [id number] ABG Oxygen Content 5.9 Low 6.6-9.7 mmol/L LAB ARTTCO2 ABG TCO2 25.8 Normal 23.0-27.0 mmol/L LAB ARTFIO2 ABG Frac Inspired O2 30 % LAB ARTTV ABG TV 400 mL LAB ARTPEEP ABG PEEP 5 LAB VBDRAW VBG Draw Site Right Radial LAB VENTMODE Ventilator Mode AC LAB BGRR Set Respiratory Rate 12 LAB RESPCRIT Respiratory Critical Result Comment: Critical Tanna ue called on: 05/16/2024 at 05:44 PERFORMED BY: [place] [address] PATHOLOGIST MATERIALS ENGINEER JACQUE SHER M.D. Performed By: #### ABG #### Point of Care testing , GLUCOSE POCT GLUCOMETERS Collected: 05/16/2024 1:15 A M Status: F Source: [facility] TYPE CODE TESTS RESULT OUT OF RANGE REFERENCE UNITS LAB GLUPOC Glucose Poc Glucometers 133 mg/dL Result Comment: Random Gluco se Reference Range is dependent on time and content of last meal. Glucose of more than 200 mg/dL in a nonstressed, ambulatory subject supports the diagnosis of Diabetes Mellitus. LAB COMM1 Commemt1 Glu2: Cleaned Meter Result Comment: PERFORMED BY : [address] [place] [address] PATHOLOGIST MATERIALS ENGINEER JACQUE SHER M.D. Performed By: #### GLULS ### # Point of Care testing , GLUCOSE POCT GLUCOMETERS Collected: 05/15/2024 6:23 P M Status: F Source: [facility] TYPE CODE TESTS RESULT OUT OF RANGE REFERENCE UNITS LAB GLUPOC Glucose Poc Glucometers 112 mg/dL Result Comment: Random Gluco se Reference Range is dependent on time and content of last meal. Glucose of more than 200 mg/dL in a nonstressed, ambulatory subject supports the diagnosis of Diabetes Mellitus. LAB COMM1 Commemt1 Glu2: Cleaned Meter Result Comment: PERFORMED BY : [address] [place] [address] PATHOLOGIST MATERIALS ENGINEER JACQUE SHER M.D. Performed By: #### GLULS ### # Point of Care testing , GLUCOSE POCT GLUCOMETERS Collected: 05/15/2024 12:46 PM Status: F Source: [facility] TYPE CODE TESTS RESULT OUT OF RANGE REFERENCE UNITS LAB GLUPOC Glucose Poc Glucometers 106 mg/dL Result Comment: Random Gluco se Reference Range is dependent on time and content of last meal. Glucose of more than 200 mg/dL in a nonstressed, ambulatory subject supports the diagnosis of Diabetes Mellitus. PERFORMED BY: [address] [place] [address] PATHOLOGIST MATERIALS ENGINEER JACQUE SHER M.D. Performed By: #### GLULS ### # Point of Care testing , MISC LAB Collected: 12:30 PM Status: F Source: [facility] Order Comment: [facility] Test Nam e: Pneumocystis Jiroveci PCR from [employer] TYPE CODE TESTS RESULT OUT OF RANGE REFERENCE UNITS LAB [facility] Result Comment: See report. Scanned copy available in EMR. PERFORMED BY: [place] [address] PATHOLOGIST MATERIALS ENGINEER JACQUE SHER M.D. Performed By: #### [facility] #### [address] XR CHEST 1V PORTABLE Observed: 4 6:15 AM Status: COMPLETED Source: [facility] Main [place] [address] [place] [address] XRay Report Signed Patient: Lupe Butler MR#: [id number] 1 : 1950 Acct:[id number] Age/Sex: 73 / F ADM Date: 05/09/24 Loc: Room: [address] [place] [address] Type: ADM IN Attending Dr: Jackson Maki DO Copies to: MD Jackson Son DO Ordering Provider: Abdon Jacobs MD Date of Service: 05/15/24 XR/XR chest 1V portable: respiratory failure Plain film chest Single view HISTORY: Respiratory failure. COMPARISON: 09/14/23 FINDINGS: SUPPORT DEVICES: Stable POSTSURGICAL CHANGES: Stable HEART: Within normal limits PULMONARY AUGUSTA: Stable MEDIASTINUM: Unremarkable LUNGS AND PLEURA: Similar bilateral pleural-parenchymal changes greater on the RIGHT. No pneumothorax. BONY STRUCTURES: Intact ADDITIONAL FINDINGS None XR/XR chest 1V portable IMPRESSION: Similar bilateral pleural-parenchymal changes greater on the RIGHT. Impression dictated by: Surendra Peña M.D.05/15/2024 6:16 AM Dictation Location: [place] [address] Transcribed By: [facility] 05/15/24615 Dictated By: uSrendra Peña DO 05/15/24614 Signed By: <Electronically signed by Surendra Peña DO in OV> 05/15/24615 TRIGLYCERIDES Collected: 4 4:50 AM Status: F Source: [facility] TYPE CODE TESTS RESULT OUT OF RANGE REFERENCE UNITS LAB TRIG Triglycerides 255 High 35-149 mg/dL Result Comment: TRIG ATP III CLASSIFICATION TRIG less than 150 mg/dL Normal TRIG 150-199 mg/dL Borderline high TRIG 200-500 mg/dL High TRIG greater than 500 mg/dL Very high Standard traceable to the Center for Disease Conrtrol and Prevention (CDC) test method. PERFORMED BY: [place] [address] PATHOLOGIST MATERIALS ENGINEER JACQUE SHER M.D. Performed By: #### TRIG #### [address] COMPLETE BLOOD COUNT AUTO DIFF Collected: 05/15/2024 4:50 AM Status: F Source: [facility] TYPE CODE TESTS RESULT OUT OF RANGE REFERENCE UNITS LAB WBC White Blood Count 7.9 Normal 3.8-11.6 10*3/uL LAB UNWBC Uncorrected WBC 7.9 Normal 3.8-11.6 10*3/uL LAB RBC Red Blood Count 3.84 Normal 3.60-5.00 LAB HGB Hemoglobin 9.3 Low 11.8-15.4 g/dL LAB HCT Hematocrit 28.8 Low 34.0-46.4 % LAB MCV Mean Corpuscular Volume 74.9 Low 80-100 fL LAB MCH Mean Corpuscular Hemoglobin 24.3 Low 24.7-34.3 pg LAB MCHC Mean Corpuscular HGB Conc 32.4 Normal 32.0-35.0 g/dL LAB RDW Red Cell Distribution Width 20.9 High 11.9-15.3 % LAB PLT Platelet Count 243 Normal 150-450 10*3/uL LAB MPV Mean Platelet Volume 9.5 Normal 6.3-10.7 fL LAB NE% Neutrophils % (Auto) 89.6 . % LAB LY% Lymphocytes % (Auto) 5.9 . % LAB MO% Monocytes % (Auto) 4.1 . % LAB EO% Eosinophils % (Auto) 0.0 . % LAB BA% Basophils % (Auto) 0.4 . % LAB NRBC% NRBC% 0.0 Normal 0-0.5 /100{WBC} LAB NE# Neutrophils # (Auto) 7.1 Normal 1.8-7.7 10*3/uL LAB LY# Lymphocytes # (Auto) 0.5 Low 1.00-4.8 10*3/uL LAB MO# Monocytes # (Auto) 0.3 Normal 0.0-0.8 10*3/uL LAB EO# Eosinophils # (Auto) 0.0 Normal 0.0-0.45 10*3/uL LAB BA# Basophils # (Auto) 0.0 Normal 0.0-0.2 10*3/uL Result Comment: PERFORMED BY : [place] [address] PATHOLOGIST MATERIALS ENGINEER JACQUE SHER M.D. Performed By: #### TRIG, CBC , MG, BMP #### [address] BASIC METABOLIC PANEL Collected: 2023 4:50 AM Status: F Source: [facility] TYPE CODE TESTS RESULT OUT OF RANGE REFERENCE UNITS LAB GLU Glucose 110 High 70-100 mg/dL Result Comment: Random Gluco se Reference Range is dependent on time and content of last meal. Glucose of more than 200 mg/dL in a nonstressed, ambulatory subject supports the diagnosis of Diabetes Mellitus. ADA recommended reference range LAB BUN Blood Urea Nitrogen 30 High 7-25 mg/dL LAB CREATT Creatinine 2.83 Increased 0.60-1.20 mg/dL LAB GFReNR Estimated GFR 17.285 LAB NA Sodium 131 Low 136-145 mmol/L LAB K Potassium 4.2 Normal 3.5-5.1 mmol/L LAB CL Chloride 91 Low 98-107 mmol/L LAB CO2 Carbon Dioxide 27.1 Normal 21.0-31.0 mmol/L LAB GAP Anion Gap 17.1 High 6.0-15.0 LAB CA Calcium 8.4 Low 8.6-10.3 mg/dL LAB CRCLPHA Creatinine Clr Calc Pharmacy 17.62 Performed By: #### TRIG, CBC , MG, BMP #### [facility] [address] [place] [address] MAGNESIUM Collected: 4:50 AM Status: F Source: [facility] TYPE CODE TESTS RESULT OUT OF RANGE REFERENCE UNITS LAB MG Magnesium 2.1 Normal 1.9-2.7 mg/dL Result Comment: PERFORMED BY : [place] [id number] PATHOLOGIST MATERIALS ENGINEER JACQUE SHER M.D. Performed By: #### TRIG, CBC , MG, BMP #### [facility] [address] [place] [address] [facility] TRIGLYCERIDES Collected: 4:50 AM Status: F Source: [facility] TYPE CODE TESTS RESULT OUT OF RANGE REFERENCE UNITS LAB TRIG Triglycerides 255 High 35-149 mg/dL Result Comment: TRIG ATP III CLASSIFICATION TRIG less than 150 mg/dL Normal TRIG 150-199 mg/dL Borderline high TRIG 200-500 mg/dL High TRIG greater than 500 mg/dL Very high Standard traceable to the Center for Disease Conrtrol and Prevention (CDC) test method. PERFORMED BY: [place] [address] PATHOLOGIST MATERIALS ENGINEER JACQUE SHER M.D. Performed By: #### TRIG, CBC , MG, BMP #### [facility] [address] [place], [place] [id number] [facility] ARTERIAL BLOOD GAS Collected: 05/15/2024 4:38 AM Sta tus: F Source: [facility] TYPE CODE TESTS RESULT OUT OF RANGE REFERENCE UNITS LAB ARTPH ABG PH 7.43 Normal 7.35-7.45 LAB ARTPCO2 ABG PCO2 37.8 Normal 35.0-45.0 mm[Hg] LAB ARTPO2 ABG PO2 86.7 Normal 80.0-100.0 mm[Hg] LAB ARTHCO3 ABG HCO3 24.6 Normal 23.0-29.0 mmol/L LAB ARTBE ABG Base Excess 0.5 Normal -3.0-3.0 mmol/L LAB [id number] ABG Oxygen Saturation 96.3 Normal 95.0-100.0 % LAB [id number] ABG Oxygen Content 6.2 Low 6.6-9.7 mmol/L LAB ARTTCO2 ABG TCO2 25.8 Normal 23.0-27.0 mmol/L LAB ARTFIO2 ABG Frac Inspired O2 30 % LAB ARTTV ABG TV 400 mL LAB ARTPEEP ABG PEEP 6 LAB VBDRAW VBG Draw Site Right Radial LAB VENTMODE Ventilator Mode AC LAB BGRR Set Respiratory Rate 12 LAB RESPCRIT Respiratory Critical Result Comment: Critical Tanna ue called on: 05/15/2024 at 04:41 PERFORMED BY: [address] [place] [address] PATHOLOGIST MATERIALS ENGINEER JACQUE SHER M.D. Performed By: #### ABG #### Point of Care testing , GLUCOSE POCT GLUCOMETERS Collected: 05/15/2024 12:42 AM Status: F Source: [facility] TYPE CODE TESTS RESULT OUT OF RANGE REFERENCE UNITS LAB GLUPOC Glucose Poc Glucometers 110 mg/dL Result Comment: Random Gluco se Reference Range is dependent on time and content of last meal. Glucose of more than 200 mg/dL in a nonstressed, ambulatory subject supports the diagnosis of Diabetes Mellitus. LAB COMM1 Commemt1 Glu2: Cleaned Meter Result Comment: PERFORMED BY : [address] [place] [address] PATHOLOGIST MATERIALS ENGINEER JACQUE SHER M.D. Performed By: #### GLULS ### # Point of Care testing , GLUCOSE POCT GLUCOMETERS Collected: 05/14/2024 6:08 P M Status: F Source: [facility] TYPE CODE TESTS RESULT OUT OF RANGE REFERENCE UNITS LAB GLUPOC Glucose Poc Glucometers 123 mg/dL Result Comment: Random Gluco se Reference Range is dependent on time and content of last meal. Glucose of more than 200 mg/dL in a nonstressed, ambulatory subject supports the diagnosis of Diabetes Mellitus. PERFORMED BY: [address] [place] [address] PATHOLOGIST MATERIALS ENGINEER JACQUE SHER M.D. Performed By: #### GLULS ### # Point of Care testing , GLUCOSE POCT GLUCOMETERS Collected: 05/14/2024 12:22 PM Status: F Source: [facility] TYPE CODE TESTS RESULT OUT OF RANGE REFERENCE UNITS LAB GLUPOC Glucose Poc Glucometers 124 mg/dL Result Comment: Random Gluco se Reference Range is dependent on time and content of last meal. Glucose of more than 200 mg/dL in a nonstressed, ambulatory subject supports the diagnosis of Diabetes Mellitus. PERFORMED BY: [place] [address] PATHOLOGIST MATERIALS ENGINEER JACQUE SHER M.D. Performed By: #### GLULS ### # Point of Care testing , XR CHEST 1V PORTABLE Observed: 5:37 AM Status: COMPLETED Source: [facility] [place] [address] XRay Report Signed Patient: Lupe Butler MR#: [id number] 1 : 1950 Acct:[id number] Age/Sex: 73 / F ADM Date: 05/09/24 Loc: Room: [address] [place] [address] Type: ADM IN Attending Dr: Jackson Maki DO Copies to: MD Jackson Son DO Ordering Provider: Abdon Jacobs MD Date of Service: 05/14/24 XR/XR chest 1V portable: respiratory failure Plain film chest Single view HISTORY: Daily assessment of ventilated patient COMPARISON: 05/13/24 FINDINGS: SUPPORT DEVICES: Stable POSTSURGICAL CHANGES: Stable HEART: Stable PULMONARY AUGUSTA: Decreased hilar congestion MEDIASTINUM: Unremarkable LUNGS AND PLEURA: Improvement of moderate bilateral pleural-parenchymal densities. No pneumothorax. BONY STRUCTURES: Intact ADDITIONAL FINDINGS None XR/XR chest 1V portable IMPRESSION: Improving pleural-parenchymal changes. Impression dictated by: Surendra Peña M.D.05/14/2024 5:39 AM Dictation Location: [place] [address] Transcribed By: [facility] 05/14/24538 Dictated By: Surendra Peña DO 05/14/2437 Signed By: <Electronically signed by Surendra Peña DO in OV> 05/14/24538 ARTERIAL BLOOD GAS Collected: 05/14/2024 5:09 AM Sta tus: F Source: [facility] TYPE CODE TESTS RESULT OUT OF RANGE REFERENCE UNITS LAB ARTPH ABG PH 7.41 Normal 7.35-7.45 LAB ARTPCO2 ABG PCO2 41.8 Normal 35.0-45.0 mm[Hg] LAB ARTPO2 ABG PO2 98.5 Normal 80.0-100.0 mm[Hg] LAB ARTHCO3 ABG HCO3 25.6 Normal 23.0-29.0 mmol/L LAB ARTBE ABG Base Excess 0.8 Normal -3.0-3.0 mmol/L LAB [id number] ABG Oxygen Saturation 97.3 Normal 95.0-100.0 % LAB INFS2CH ABG Oxygen Content 6.0 Low 6.6-9.7 mmol/L LAB ARTTCO2 ABG TCO2 26.9 Normal 23.0-27.0 mmol/L LAB ARTFIO2 ABG Frac Inspired O2 40 % LAB ARTTV ABG TV 400 mL LAB ARTPEEP ABG PEEP 8 LAB VBDRAW VBG Draw Site Right Radial LAB VENTMODE Ventilator Mode AC LAB BGRR Set Respiratory Rate 12 Result Comment: PERFORMED BY : [facility] Osbaldo RICHARDS[place] [address] PATHOLOGIST MATERIALS ENGINEER JACQUE SHER M.D. Performed By: #### ABG #### Point of Care testing , COMPLETE BLOOD COUNT AUTO DIFF Collected: 05/14/2024 4:00 AM Status: F Source: [facility] TYPE CODE TESTS RESULT OUT OF RANGE REFERENCE UNITS LAB WBC White Blood Count 9.8 Normal 3.8-11.6 10*3/uL LAB UNWBC Uncorrected WBC 9.8 Normal 3.8-11.6 10*3/uL LAB RBC Red Blood Count 3.82 Normal 3.60-5.00 LAB HGB Hemoglobin 9.3 Low 11.8-15.4 g/dL LAB HCT Hematocrit 28.6 Low 34.0-46.4 % LAB MCV Mean Corpuscular Volume 74.8 Low 80-100 fL LAB MCH Mean Corpuscular Hemoglobin 24.4 Low 24.7-34.3 pg LAB MCHC Mean Corpuscular HGB Conc 32.6 Normal 32.0-35.0 g/dL LAB RDW Red Cell Distribution Width 20.7 High 11.9-15.3 % LAB PLT Platelet Count 263 Normal 150-450 10*3/uL LAB MPV Mean Platelet Volume 9.5 Normal 6.3-10.7 fL LAB NE% Neutrophils % (Auto) 93.2 . % LAB LY% Lymphocytes % (Auto) 4.0 . % LAB MO% Monocytes % (Auto) 2.3 . % LAB EO% Eosinophils % (Auto) 0.0 . % LAB BA% Basophils % (Auto) 0.5 . % LAB NRBC% NRBC% 0.1 Normal 0-0.5 /100{WBC} LAB NE# Neutrophils # (Auto) 9.1 High 1.8-7.7 10*3/uL LAB LY# Lymphocytes # (Auto) 0.4 Low 1.00-4.8 10*3/uL LAB MO# Monocytes # (Auto) 0.2 Normal 0.0-0.8 10*3/uL LAB EO# Eosinophils # (Auto) 0.0 Normal 0.0-0.45 10*3/uL LAB BA# Basophils # (Auto) 0.0 Normal 0.0-0.2 10*3/uL Result Comment: PERFORMED BY : [place] [address] PATHOLOGIST MATERIALS ENGINEER JACQUE SHER M.D. Performed By: #### MG, BMP, CBC #### [address] BASIC METABOLIC PANEL Collected: 2023 4:00 AM Status: F Source: [facility] TYPE CODE TESTS RESULT OUT OF RANGE REFERENCE UNITS LAB GLU Glucose 115 High 70-100 mg/dL Result Comment: Random Gluco se Reference Range is dependent on time and content of last meal. Glucose of more than 200 mg/dL in a nonstressed, ambulatory subject supports the diagnosis of Diabetes Mellitus. ADA recommended reference range LAB BUN Blood Urea Nitrogen 37 Increased 7-25 mg/dL LAB CREATT Creatinine 3.41 Increased 0.60-1.20 mg/dL LAB GFReNR Estimated GFR 13.820 LAB NA Sodium 131 Low 136-145 mmol/L LAB K Potassium 4.1 Normal 3.5-5.1 mmol/L LAB CL Chloride 93 Low 98-107 mmol/L LAB CO2 Carbon Dioxide 27.2 Normal 21.0-31.0 mmol/L LAB GAP Anion Gap 14.9 Normal 6.0-15.0 LAB CA Calcium 8.0 Low 8.6-10.3 mg/dL LAB CRCLPHA Creatinine Clr Calc Pharmacy 14.85 Performed By: #### MG, BMP, CBC #### [address] MAGNESIUM Collected: 4:00 AM Status: F Source: [facility] TYPE CODE TESTS RESULT OUT OF RANGE REFERENCE UNITS LAB MG Magnesium 2.0 Normal 1.9-2.7 mg/dL Result Comment: PERFORMED BY : [place] [address] PATHOLOGIST MATERIALS ENGINEER JACQUE SHER M.D. Performed By: #### MG, BMP, CBC #### [facility] [address] [place], [place] [id number] [facility] GLUCOSE POCT GLUCOMETERS Collected: 05/13/2024 11:04 PM Status: F Source: [facility] TYPE CODE TESTS RESULT OUT OF RANGE REFERENCE UNITS LAB GLUPOC Glucose Poc Glucometers 108 mg/dL Result Comment: Random Gluco se Reference Range is dependent on time and content of last meal. Glucose of more than 200 mg/dL in a nonstressed, ambulatory subject supports the diagnosis of Diabetes Mellitus. PERFORMED BY: [place] [address] PATHOLOGIST MATERIALS ENGINEER JACQUE SHER M.D. Performed By: #### GLULS ### # Point of Care testing , GRAM STAIN Observed: 05/13/2024 10:00 PM Status: F Source: [facility] Gram Stain Result 1+ White Blood Cells No Epithelial Cells Seen Rare Gram Positive Cocci PERFORMED BY: [place] [address] PATHOLOGIST MATERIALS ENGINEER JACQUE SHER M.D. Performed By: #### GS, AERC #### [facility] [address] [place], [place] [id number] [facility] AEROBIC CULTURE Observed: 05/13/2024 10:00 PM Status: F Source: [facility] No Growth 2 Days Gram Stain Result 1+ White Blood Cells No Epithelial Cells Seen Rare Gram Positive Cocci PERFORMED BY: [place] [address] PATHOLOGIST MATERIALS ENGINEER JACQUE SHER M.D. Performed By: #### GS, AERC #### [facility] [address] [place], [place] [id number] [facility] GLUCOSE POCT GLUCOMETERS Collected: 05/13/2024 5:53 P M Status: F Source: [facility] TYPE CODE TESTS RESULT OUT OF RANGE REFERENCE UNITS LAB GLUPOC Glucose Poc Glucometers 127 mg/dL Result Comment: Random Gluco se Reference Range is dependent on time and content of last meal. Glucose of more than 200 mg/dL in a nonstressed, ambulatory subject supports the diagnosis of Diabetes Mellitus. PERFORMED BY: [facility] [place] [id number] PATHOLOGIST MATERIALS ENGINEER JACQUE SHER M.D. Performed By: #### GLULS ### # Point of Care testing , ARTERIAL BLOOD GAS Collected: 05/13/2024 1:35 PM Sta tus: F Source: [facility] TYPE CODE TESTS RESULT OUT OF RANGE REFERENCE UNITS LAB ARTPH ABG PH 7.33 Low 7.35-7.45 LAB ARTPCO2 ABG PCO2 47.4 High 35.0-45.0 mm[Hg] LAB ARTPO2 ABG PO2 237.6 High Off Scale 80.0-100.0 mm[Hg] LAB ARTHCO3 ABG HCO3 24.3 Normal 23.0-29.0 mmol/L LAB ARTBE ABG Base Excess -1.9 Normal -3.0-3.0 mmol/L LAB [id number] ABG Oxygen Saturation 99.5 Normal 95.0-100.0 % LAB SAMT0VI ABG Oxygen Content 6.7 Normal 6.6-9.7 mmol/L LAB ARTTCO2 ABG TCO2 25.7 Normal 23.0-27.0 mmol/L LAB ARTFIO2 ABG Frac Inspired O2 90 % LAB ARTTV ABG TV 400 mL LAB ARTPEEP ABG PEEP 10 LAB VBDRAW VBG Draw Site Right Radial LAB VENTMODE Ventilator Mode AC LAB BGRR Set Respiratory Rate 12 LAB RESPCRIT Respiratory Critical Result Comment: Critical Tanna ue called on: 05/13/2024 at 13:37 PERFORMED BY: [facility] [address] [place] [address] PATHOLOGIST MATERIALS ENGINEER JACQUE SHER M.D. Performed By: #### ABG #### Point of Care testing , XR CHEST 1V PORTABLE Observed: 4 1:22 PM Status: COMPLETED Source: [facility] [place] [address] XRay Report Signed Patient: Lupe Butler MR#: [id number] 1 : 1950 Acct:[id number] Age/Sex: 73 / F ADM Date: 05/09/24 Loc: Room: [address] [place] [address] Type: ADM IN Attending Dr: Jackson Maki DO Copies to: MD Jackson Son DO Ordering Provider: Abdon Jacobs MD Date of Service: 05/13/24 XR/XR abdomen 1V: NG tube placement ([id number]) XR/XR chest 1V portable: respiratory failure XR abdomen 1V, XR chest 1V portable 05/13/2024 1:00 PM SIGNS AND SYMPTOMS: NG tube and OG tube placement PROTOCOL: Frontal radiographs of the chest and abdomen COMPARISON: 05/13/2024 5:09 AM FINDINGS: An enteric tube and ET tube have been placed and are in satisfactory position. The ET tube is 2.5 cm above the boyd. There is a right-sided Viuvfh-j-Dflb. Sternotomy wires overlie the exam. Atherosclerotic changes are noted in the thoracic aorta. Airspace opacities and pleural effusions are noted bilaterally with mild cardiomegaly. Degenerative changes are noted and thoracolumbar spine. There is a nonobstructive bowel gas pattern. No radiographic evidence of free air. XR/XR abdomen 1V IMPRESSION: Satisfactory positioning of the enteric tube and ET tube. Similar airspace opacities and effusions are noted. Impression dictated by: Mike Higgins M.D.05/13/2024 1:25 PM Dictation Location: [place] [address] Transcribed By: [facility] 05/13/24 1325 Dictated By: Mike Higgins II, MD 05/13/24 1322 Signed By: <Electronically signed by Mike Higgins II, MD in OV> 05/13/24 1325 XR CHEST 1V PORTABLE Observed: 4 9:11 AM Status: COMPLETED Source: [facility] [place] [address] [place] [address] XRay Report Signed Patient: Lupe Butler MR#: [id number] 1 : 1950 Acct:[id number] Age/Sex: 73 / F ADM Date: 05/09/24 Loc: Room: [address] [place] [address] Type: ADM IN Attending Dr: Jackson Maki DO Copies to: Jackson Maki DO Ordering Provider: Jackson Maki DO Date of Service: 05/13/24 XR/XR chest 1V portable: resp failure Plain film chest Single view HISTORY: Respiratory failure COMPARISON: 05/12/2024 FINDINGS: SUPPORT DEVICES: None POSTSURGICAL CHANGES: Stable HEART: Stable PULMONARY AUGUSTA: Stable MEDIASTINUM: Unremarkable LUNGS AND PLEURA: Continued bilateral pleural-parenchymal densities. BONY STRUCTURES: Intact ADDITIONAL FINDINGS None XR/XR chest 1V portable IMPRESSION: Similar bilateral pleural-parenchymal densities. No new findings. Impression dictated by: Surendra Peña M.D.05/13/2024 9:16 AM Dictation Location: [facility]--23 Transcribed By: [facility] 05/13/24915 Dictated By: Surendra Peña DO 05/13/24910 Signed By: <Electronically signed by Surendra Peña DO in OV> 05/13/24915 ARTERIAL BLOOD GAS Collected: 05/13/2024 4:37 AM Sta tus: F Source: [facility] TYPE CODE TESTS RESULT OUT OF RANGE REFERENCE UNITS LAB ARTPH ABG PH 7.33 Low 7.35-7.45 LAB ARTPCO2 ABG PCO2 48.4 High 35.0-45.0 mm[Hg] LAB ARTPO2 ABG PO2 68.0 Low 80.0-100.0 mm[Hg] LAB ARTHCO3 ABG HCO3 24.9 Normal 23.0-29.0 mmol/L LAB ARTBE ABG Base Excess -1.3 Normal -3.0-3.0 mmol/L LAB [id number] ABG Oxygen Saturation 92.0 Low 95.0-100.0 % LAB PGOU5IZ ABG Oxygen Content 6.0 Low 6.6-9.7 mmol/L LAB ARTTCO2 ABG TCO2 26.4 Normal 23.0-27.0 mmol/L LAB ARTFIO2 ABG Frac Inspired O2 100 % LAB ARTLITFLOW ABG Liter Flow 40 LAB VBDRAW VBG Draw Site Right Radial LAB OXYDEV Oxygen Device High Flow LAB RESPCRIT Respiratory Critical Result Comment: Critical Tanna ue called on: 05/13/2024 at 04:42 PERFORMED BY: [place] [address] PATHOLOGIST MATERIALS ENGINEER JACQUE SHER M.D. Performed By: #### ABG #### Point of Care testing , HEPATIC PANEL Collected: 05/13/2024 4:11 AM Status: F Source: [facility] TYPE CODE TESTS RESULT OUT OF RANGE REFERENCE UNITS LAB TP Total Protein 6.4 Normal 6.4-8.9 g/dL LAB ALB Albumin Level 3.7 Normal 3.5-5.7 g/dL LAB GLOB Globulin 2.7 g/dL LAB AGRATIO Albumin/Globulin Ratio 1.4 LAB BILIT Bilirubin,Total 0.9 Normal 0.3-1.0 mg/dL LAB BILID Bilirubin,Direct 0.20 High 0.03-0.18 mg/dL LAB BILII Bilirubin,Indirect 0.7 mg/dL LAB AST Aspartate Amino Transferase 15 Normal 13-39 U/L LAB ALT Alanine Aminotransferase 17 Normal 7-52 U/L LAB ALP Alkaline Phosphatase 61 Normal 34-104 U/L Performed By: #### PHOS, MG, HEPATIC, BMP #### [address] BASIC METABOLIC PANEL Collected: 2023 4:11 AM Status: F Source: [facility] TYPE CODE TESTS RESULT OUT OF RANGE REFERENCE UNITS LAB GLU Glucose 153 High 70-100 mg/dL Result Comment: Random Gluco se Reference Range is dependent on time and content of last meal. Glucose of more than 200 mg/dL in a nonstressed, ambulatory subject supports the diagnosis of Diabetes Mellitus. ADA recommended reference range LAB BUN Blood Urea Nitrogen 70 High 7-25 mg/dL LAB CREATT Creatinine 4.81 Increased 0.60-1.20 mg/dL LAB GFReNR Estimated GFR 9.146 LAB NA Sodium 135 Low 136-145 mmol/L LAB K Potassium 5.3 High 3.5-5.1 mmol/L LAB CL Chloride 97 Low 98-107 mmol/L LAB CO2 Carbon Dioxide 26.8 Normal 21.0-31.0 mmol/L LAB GAP Anion Gap 16.5 High 6.0-15.0 LAB CA Calcium 8.0 Low 8.6-10.3 mg/dL LAB CRCLPHA Creatinine Clr Calc Pharmacy 10.54 Performed By: #### PHOS, MG, HEPATIC, BMP #### [facility] [address] PHOSPHORUS Collected: 4 4:11 AM Status: F Source: [facility] TYPE CODE TESTS RESULT OUT OF RANGE REFERENCE UNITS LAB PHOS Phosphorus 7.2 High 2.5-4.5 mg/dL Performed By: #### PHOS, MG, HEPATIC, BMP #### [address] MAGNESIUM Collected: 4 4:11 AM Status: F Source: [facility] TYPE CODE TESTS RESULT OUT OF RANGE REFERENCE UNITS LAB MG Magnesium 2.3 Normal 1.9-2.7 mg/dL Result Comment: PERFORMED BY : [place] [address] PATHOLOGIST MATERIALS ENGINEER JACQUE SHER M.D. Performed By: #### PHOS, MG, HEPATIC, BMP #### [place] [id number] [facility] TRIGLYCERIDES Collected: 4 4:11 AM Status: F Source: [facility] TYPE CODE TESTS RESULT OUT OF RANGE REFERENCE UNITS LAB TRIG Triglycerides 158 High 35-149 mg/dL Result Comment: TRIG ATP III CLASSIFICATION TRIG less than 150 mg/dL Normal TRIG 150-199 mg/dL Borderline high TRIG 200-500 mg/dL High TRIG greater than 500 mg/dL Very high Standard traceable to the Center for Disease Conrtrol and Prevention (CDC) test method. PERFORMED BY: [place] [address] PATHOLOGIST MATERIALS ENGINEER JACQUE SHER M.D. Performed By: #### TRIG #### [address] [address] [facility] COAGULATION PROFILE Collected: 05/13/2024 4:[address] atus: F Source: [facility] TYPE CODE TESTS RESULT OUT OF RANGE REFERENCE UNITS LAB R PT Prothrombin Time 16.3 High 9.0-12.9 s Result Comment: A hematocrit value greater than 55% may lead to inaccurate results in coagulation testing. Patients having hematocrit values >55% require a special collection tube for coagulation studies. Please contact the laboratory at [phone] for redraw instructions. LAB INR INR 1.4 Result Comment: INR Therapeu tic Range A) Pre- and Peroperative OAT started two weeks before surgery. NOT HIP SURGERY: 1.5 - 2.5 HIP SURGERY: 2 - 3 B) Primary and secondary prevention of venous THROMBOSIS: 2 - 3 C) Active venous thrombosis, pulmonary embolism and prevention of recurrent venous thrombosis: 2 - 3 D) Prevention of arterial thromboembolism including patients with mechanical heart valves: 3 - 4.5 LAB PTT Partial Thromboplastin Time 30.5 Normal 25.1-36.5 s Result Comment: A hematocrit value greater than 55% may lead to inaccurate results in coagulation testing. Patients having hematocrit values >55% require a special collection tube for coagulation studies. Please contact the laboratory at [phone] for redraw instructions. Performed By: #### FIB-C, PP #### [facility] [address] [place], [place] [id number] [facility] FIBRINOGEN Collected: 4:11 AM Status: F Source: [facility] TYPE CODE TESTS RESULT OUT OF RANGE REFERENCE UNITS LAB FIB-C Fibrinogen 383 Normal 200-393 mg/dL Result Comment: A hematocrit value greater than 55% may lead to inaccurate results in coagulation testing. Patients having hematocrit values >55% require a special collection tube for coagulation studies. Please contact the laboratory at [phone] for redraw instructions. PERFORMED BY: [place] [address] PATHOLOGIST MATERIALS ENGINEER JACQUE SHER M.D. Performed By: #### FIB-C, PP #### [facility] [address] [place], [place] [id number] [facility] COMPLETE BLOOD COUNT AUTO DIFF Collected: 05/13/2024 4:11 AM Status: F Source: F [facility] TYPE CODE TESTS RESULT OUT OF RANGE REFERENCE UNITS LAB WBC White Blood Count 16.0 High 3.8-11.6 10*3/uL LAB UNWBC Uncorrected WBC 16.0 High 3.8-11.6 10*3/uL LAB RBC Red Blood Count 3.96 Normal 3.60-5.00 LAB HGB Hemoglobin 9.5 Low 11.8-15.4 g/dL LAB HCT Hematocrit 30.1 Low 34.0-46.4 % LAB MCV Mean Corpuscular Volume 75.9 Low 80-100 fL LAB MCH Mean Corpuscular Hemoglobin 24.0 Low 24.7-34.3 pg LAB MCHC Mean Corpuscular HGB Conc 31.7 Low 32.0-35.0 g/dL LAB RDW Red Cell Distribution Width 20.9 High 11.9-15.3 % LAB PLT Platelet Count 343 Normal 150-450 10*3/uL LAB MPV Mean Platelet Volume 9.1 Normal 6.3-10.7 fL LAB NE% Neutrophils % (Auto) 95.5 . % LAB LY% Lymphocytes % (Auto) 3.6 . % LAB MO% Monocytes % (Auto) 0.5 . % LAB EO% Eosinophils % (Auto) 0.0 . % LAB BA% Basophils % (Auto) 0.4 . % LAB NRBC% NRBC% 0.0 Normal 0-0.5 /100{WBC} LAB NE# Neutrophils # (Auto) 15.3 High 1.8-7.7 10*3/uL LAB LY# Lymphocytes # (Auto) 0.6 Low 1.00-4.8 10*3/uL LAB MO# Monocytes # (Auto) 0.1 Normal 0.0-0.8 10*3/uL LAB EO# Eosinophils # (Auto) 0.0 Normal 0.0-0.45 10*3/uL LAB BA# Basophils # (Auto) 0.1 Normal 0.0-0.2 10*3/uL Result Comment: PERFORMED BY : [facility] [address] [place] [address] PATHOLOGIST MATERIALS ENGINEER JACQUE SHER M.D. Performed By: #### CBC #### [facility] [address] ARTERIAL BLOOD GAS Collected: 05/12/2024 9:46 PM Sta tus: F Source: [facility] TYPE CODE TESTS RESULT OUT OF RANGE REFERENCE UNITS LAB ARTPH ABG PH 7.36 Normal 7.35-7.45 LAB ARTPCO2 ABG PCO2 45.5 High 35.0-45.0 mm[Hg] LAB ARTPO2 ABG PO2 90.3 Normal 80.0-100.0 mm[Hg] LAB ARTHCO3 ABG HCO3 24.9 Normal 23.0-29.0 mmol/L LAB ARTBE ABG Base Excess -0.8 Normal -3.0-3.0 mmol/L LAB [id number] ABG Oxygen Saturation 97.0 Normal 95.0-100.0 % LAB [id number] ABG Oxygen Content 6.3 Low 6.6-9.7 mmol/L LAB ARTTCO2 ABG TCO2 26.3 Normal 23.0-27.0 mmol/L LAB ARTFIO2 ABG Frac Inspired O2 95 % LAB VBDRAW VBG Draw Site Right Radial LAB OXYDEV Oxygen Device BiPAP LAB RESPCRIT Respiratory Critical Result Comment: Critical Tanna ue called on: 05/12/2024 at 21:49 PERFORMED BY: [place] [address] PATHOLOGIST MATERIALS ENGINEER JACQUE SHER M.D. Performed By: #### ABG #### Point of Care testing , XR CHEST 1V PORTABLE Observed: 4 7:48 AM Status: COMPLETED Source: [facility] [place] [address] XRay Report Signed Patient: Lupe Butler MR#: [id number] 1 : 1950 Acct:[id number] Age/Sex: 73 / F ADM Date: 05/09/24 Loc: Room: [address] [place] [address] Type: ADM IN Attending Dr: Jackson Maki DO Copies to: MD Jakcson Son DO Ordering Provider: Abdon Jacobs MD Date of Service: 05/12/24 XR/XR chest 1V portable: increased oxygen demands XR chest 1V portable 05/11/2024 8:32 PM SIGNS AND SYMPTOMS: increased oxygen demands PROTOCOL: Frontal radiograph of the chest COMPARISON: 05/11/2024 FINDINGS: The trachea is midline. There is a right-sided Omfmhr-q-Ohxp. There is evidence of prior sternotomy. Atherosclerotic changes are noted in the aortic arch. Surgical clips are noted along the pericardium on the left side of the mediastinum. Bilateral airspace opacities are noted with pleural effusions right greater than left. The heart and mediastinal structures are within normal limits. The lung parenchyma is clear. The bony thorax is intact. XR/XR chest 1V portable IMPRESSION: Unchanged chest. Impression dictated by: Mike Higgins M.D.05/12/2024 7:50 AM Dictation Location: [place] [address] Transcribed By: [facility] 05/12/24 0750 Dictated By: Mike Higgins II, MD 05/12/24 0748 Signed By: <Electronically signed by Mike Higgins II, MD in OV> 05/12/24 0750 SODIUM, URINE Collected: 6:40 AM Status: F Source: [facility] TYPE CODE TESTS RESULT OUT OF RANGE REFERENCE UNITS LAB URNA Sodium, Urine 13.0 mmol/L Result Comment: No reference range established Performed By: #### ADDONUAPL US, UCREA, URNA, UEOS #### [facility] [address] [place] [address] [place] CREATININE, URINE (RANDOM) Collected: 1 6:40 AM Status: F Source: [facility] TYPE CODE TESTS RESULT OUT OF RANGE REFERENCE UNITS LAB UCREA Creatinine, Urine (Random) 297.00 mg/dL Result Comment: No reference range established PERFORMED BY: [facility] [address] [place] [id number] PATHOLOGIST MATERIALS ENGINEER JACQUE SHER M.D. Performed By: #### ADDONUAPL US, UCREA, URNA, UEOS #### [facility] [address] [place] [address] [place] DIPSTICK AND MICROSCOPIC Collected: 6:40 AM Status: F Source: [facility] Order Comment: Name Collecti on Type:: Clean-Voided Midstream TYPE CODE TESTS RESULT OUT OF RANGE REFERENCE UNITS LAB UCOL Color,Urine Yellow Yellow LAB UAPP Appearance,Uri ne Turbid Abnormal Alert Clear LAB USG Specificy [place],Urine 1.022 Normal 1.001-1.030 LAB UPH pH,Urine 5.0 Normal 5.0-9.0 LAB ULE Leukocyte Esterase,Urine Negative Negative LAB UNIT Nitrite,Urine Negative Negative LAB UPRO Protein,Urine 50 High Negative mg/dL LAB UGL Glucose,Urine (UA) Normal Normal LAB UKET Ketones,Urine Negative Negative LAB UURO Urobilinogen,U rine Normal Normal LAB UBIL Bilirubin,Urin e Negative Negative LAB UBLD Occult Blood,Urine Negative Negative LAB URBC RBC,Urine 1-2 0-4 LAB UWBC WBC,Urine 5-9 High 0-4 LAB USQEPI Squamous Epithelial Cell,Urine 10-19 High 0-2 LAB UBACT Bacteria,Urine Rare None Seen LAB UHYALC Hyaline Casts,Urine 20-49 High 0-8 LAB MUCUS Mucus,Urine Rare LAB URBY Budding Yeast,Urine 2+ High None Seen Performed By: #### ADDONUAPL US, UCREA, URNA, UEOS #### [facility] [address] EOSINOPHIL,URINE Collected: 6:40 AM Status: F Source: [facility] Order Comment: Name Collecti on Type:: Clean-Voided Midstream TYPE CODE TESTS RESULT OUT OF RANGE REFERENCE UNITS LAB UEOS Eosinophil, Urine 0 Normal 0-1 % Result Comment: PERFORMED BY : [place] [address] PATHOLOGIST MATERIALS ENGINEER JACQUE SHER M.D. Performed By: #### ADDONUAPL US, UCREA, URNA, UEOS #### [facility] [address] [place] [address] B-TYPE NATRIURETIC PEPTIDE Collected: 05/12/2024 3:59 AM Status: F Source: [facility] TYPE CODE TESTS RESULT OUT OF RANGE REFERENCE UNITS LAB BNP B-Type Natriuretic Peptide 2797.0 High 5-100 pg/mL Result Comment: PERFORMED BY : [place] [address] PATHOLOGIST MATERIALS ENGINEER JACQUE SHER M.D. Performed By: #### T3F, BNP #### [place] [id number] [facility] TRIIODOTHYRONINE (T3) FREE Collected: 05/12/2024 3:59 AM Status: F Source: [facility] TYPE CODE TESTS RESULT OUT OF RANGE REFERENCE UNITS LAB T3F Triiodothyronine (T3) Free 2.40 Low 2.50-3.90 pg/mL Result Comment: PERFORMED BY : [place] [address] PATHOLOGIST MATERIALS ENGINEER JACQUE SHER M.D. Performed By: #### T3F, BNP #### [place] [id number] [facility] COAGULATION PROFILE Collected: 05/12/2024 3:[address] atus: F Source: [facility] TYPE CODE TESTS RESULT OUT OF RANGE REFERENCE UNITS LAB R PT Prothrombin Time 15.0 High 9.0-12.9 s Result Comment: A hematocrit value greater than 55% may lead to inaccurate results in coagulation testing. Patients having hematocrit values >55% require a special collection tube for coagulation studies. Please contact the laboratory at [phone] for redraw instructions. LAB INR INR 1.3 Result Comment: INR Therapeu tic Range A) Pre- and Peroperative OAT started two weeks before surgery. NOT HIP SURGERY: 1.5 - 2.5 HIP SURGERY: 2 - 3 B) Primary and secondary prevention of venous THROMBOSIS: 2 - 3 C) Active venous thrombosis, pulmonary embolism and prevention of recurrent venous thrombosis: 2 - 3 D) Prevention of arterial thromboembolism including patients with mechanical heart valves: 3 - 4.5 LAB PTT Partial Thromboplastin Time 30.0 Normal 25.1-36.5 s Result Comment: A hematocrit value greater than 55% may lead to inaccurate results in coagulation testing. Patients having hematocrit values >55% require a special collection tube for coagulation studies. Please contact the laboratory at [phone] for redraw instructions. PERFORMED BY: [place] [address] PATHOLOGIST MATERIALS ENGINEER JACQUE SHER M.D. Performed By: #### T4F, PP, HEPATIC, CMP, TSH3 #### [facility] [address] [place] [id number] [facility] COMPREHENSIVE METABOLIC PANEL Collected: 05/12/2024 3:59 AM Status: F Source: F [facility] TYPE CODE TESTS RESULT OUT OF RANGE REFERENCE UNITS LAB GLU Glucose 140 High 70-100 mg/dL Result Comment: Random Gluco se Reference Range is dependent on time and content of last meal. Glucose of more than 200 mg/dL in a nonstressed, ambulatory subject supports the diagnosis of Diabetes Mellitus. ADA recommended reference range LAB BUN Blood Urea Nitrogen 53 High 7-25 mg/dL LAB CREATT Creatinine 3.60 Increased 0.60-1.20 mg/dL LAB GFReNR Estimated GFR 12.950 LAB NA Sodium 136 Normal 136-145 mmol/L LAB K Potassium 4.8 Normal 3.5-5.1 mmol/L LAB CL Chloride 97 Low 98-107 mmol/L LAB CO2 Carbon Dioxide 26.8 Normal 21.0-31.0 mmol/L LAB GAP Anion Gap 17.0 High 6.0-15.0 LAB CA Calcium 8.6 Normal 8.6-10.3 mg/dL LAB TP Total Protein 6.5 Normal 6.4-8.9 g/dL LAB ALB Albumin Level 3.7 Normal 3.5-5.7 g/dL LAB GLOB Globulin 2.8 g/dL LAB AGRATIO Albumin/Globulin Ratio 1.3 LAB BILIT Bilirubin,Total 0.9 Normal 0.3-1.0 mg/dL LAB AST Aspartate Amino Transferase 18 Normal 13-39 U/L LAB ALT Alanine Aminotransferase 18 Normal 7-52 U/L LAB ALP Alkaline Phosphatase 68 Normal 34-104 U/L LAB CRCLPHA Creatinine Clr Calc Pharmacy 14.05 Performed By: #### T4F, PP, HEPATIC, CMP, TSH3 #### [facility] [address] [place] [id number] [facility] HEPATIC PANEL Collected: 05/12/2024 3:59 AM Status: F Source: [facility] TYPE CODE TESTS RESULT OUT OF RANGE REFERENCE UNITS LAB BILID Bilirubin,Dir ect 0.20 High 0.03-0.18 mg/dL LAB BILII Bilirubin,Ind irect 0.7 mg/dL Performed By: #### T4F, PP, HEPATIC, CMP, TSH3 #### [address] FREE T4 (FREE THYROXINE) Collected: 3:59 AM Status: F Source: [facility] TYPE CODE TESTS RESULT OUT OF RANGE REFERENCE UNITS LAB T4F Free T4 (Free Thyroxine) 1.02 Normal 0.61-1.12 ng/dL Performed By: #### T4F, PP, HEPATIC, CMP, TSH3 #### [address] THYROID STIMULATING HORMONE Collected: 05/12/2024 3:5 9 AM Status: F Source: [facility] TYPE CODE TESTS RESULT OUT OF RANGE REFERENCE UNITS LAB TSH3 Thyroid Stimulating Hormone 2.08 Normal 0.45-5.33 u[iU]/mL Result Comment: PERFORMED BY : [place] [address] PATHOLOGIST MATERIALS ENGINEER JACQUE SHER M.D. Performed By: #### T4F, PP, HEPATIC, CMP, TSH3 #### [address] COMPLETE BLOOD COUNT AUTO DIFF Collected: 05/12/2024 3:59 AM Status: F Source: F [facility] TYPE CODE TESTS RESULT OUT OF RANGE REFERENCE UNITS LAB WBC White Blood Count 12.3 High 3.8-11.6 10*3/uL LAB UNWBC Uncorrected WBC 12.3 High 3.8-11.6 10*3/uL LAB RBC Red Blood Count 4.20 Normal 3.60-5.00 LAB HGB Hemoglobin 10.1 Low 11.8-15.4 g/dL LAB HCT Hematocrit 32.2 Low 34.0-46.4 % LAB MCV Mean Corpuscular Volume 76.8 Low 80-100 fL LAB MCH Mean Corpuscular Hemoglobin 24.1 Low 24.7-34.3 pg LAB MCHC Mean Corpuscular HGB Conc 31.4 Low 32.0-35.0 g/dL LAB RDW Red Cell Distribution Width 21.2 High 11.9-15.3 % LAB PLT Platelet Count 338 Normal 150-450 10*3/uL LAB MPV Mean Platelet Volume 9.8 Normal 6.3-10.7 fL LAB NE% Neutrophils % (Auto) 94.6 . % LAB LY% Lymphocytes % (Auto) 4.3 . % LAB MO% Monocytes % (Auto) 0.7 . % LAB EO% Eosinophils % (Auto) 0.0 . % LAB BA% Basophils % (Auto) 0.4 . % LAB NRBC% NRBC% 0.1 Normal 0-0.5 /100{WBC} LAB NE# Neutrophils # (Auto) 11.7 High 1.8-7.7 10*3/uL LAB LY# Lymphocytes # (Auto) 0.5 Low 1.00-4.8 10*3/uL LAB MO# Monocytes # (Auto) 0.1 Normal 0.0-0.8 10*3/uL LAB EO# Eosinophils # (Auto) 0.0 Normal 0.0-0.45 10*3/uL LAB BA# Basophils # (Auto) 0.0 Normal 0.0-0.2 10*3/uL Result Comment: PERFORMED BY : [place] [address] PATHOLOGIST MATERIALS ENGINEER JACQUE SHER M.D. Performed By: #### CBC #### [address] RENAL BI Observed: 05/11/2024 10:35 PM Status: COMPLETED Source: [facility] [place] [address] Ultrasound Report Signed Patient: Lupe Butler MR#: [id number] 1 : 1950 Acct:[id number] Age/Sex: 73 / F ADM Date: 05/09/24 Loc: Room: [address] [place] [address] Type: ADM IN Attending Dr: Jackson Maki DO Ordering Provider: Jackson Maki DO Date of Service: 05/11/24 US/US renal BI: CANDACE Copies to: Jackson Maki DO BILATERAL RENAL AND BLADDER ULTRASOUND CLINICAL HISTORY: Acute kidney injury COMPARISON: 10/05/2018 The right kidney is atrophic measuring 5.5 cm. The left kidney is approximately 10.5 cm in craniocaudal dimension. No shadowing calculi or hydronephrosis are identified. No renal mass lesions were imaged. There is no perinephric fluid. Incidental note is made of cholelithiasis. The urinary bladder is not well distended with a volume of 39 mL. No contour or intraluminal abnormalities are seen. US/US renal BI IMPRESSION: ATROPHIC RIGHT KIDNEY. NO OBSTRUCTIVE UROPATHY. INCIDENTAL CHOLELITHIASIS. Impression dictated by: Dasha Sam M.D.05/11/2024 11:19 PM Dictation Location: [place] [address] Tech: Kareen Bairesstephany Transcribed By: ZEFERINO 05/11/242318 Dictated By: Dasha Sam MD 05/11/242234 Signed By: <Electronically signed by MD Dasha Sam in OV> 05/11/242318 XR CHEST 1V PORTABLE Observed: 8:08 PM Status: COMPLETED Source: [facility] [address] XRay Report Signed Patient: Lupe Butler MR#: [id number] 1 : 1950 Acct:[id number] Age/Sex: 73 / F ADM Date: 05/09/24 Loc: Room: [address] [place] [address] Type: ADM IN Attending Dr: Jackson Maki DO Copies to: Jackson Maki DO Ordering Provider: Jackson Maki DO Date of Service: 05/11/24 XR/XR chest 1V portable: hypoxia PORTABLE AP ERECT CHEST 1948 hours CLINICAL HISTORY: Shortness of breath . History of recurrent right pleural effusion and thoracentesis. COMPARISON: 05/09/2024 Median sternotomy wires are present. A right-sided infuse port catheter is seen. The right hemidiaphragm is becoming indistinct and this is probably reaccumulating pleural fluid. Similar parenchymal changes are seen within the lungs bilaterally. No pneumothorax is identified. The visualized cardiac and mediastinal contours are stable. The bony structures are osteopenic. XR/XR chest 1V portable IMPRESSION: CONTINUED BILATERAL PARENCHYMAL CHANGES AND SUSPECTED DEVELOPING RIGHT PLEURAL EFFUSION. Impression dictated by: Dasha Sam M.D.05/11/2024 8:11 PM Dictation Location: [place] [address] Transcribed By: [facility] 05/11/242010 Dictated By: Dasha Sam MD 05/11/242007 Signed By: <Electronically signed by MD Dasha Sam in OV> 05/11/242010 MR HEAD/BRAIN WO/W CON Observed: 024 11:32 AM Status: COMPLETED Source: [facility] [place] [address] MRI Report Signed Patient: Lupe Butler MR#: [id number] 1 : 1950 Acct:[id number] Age/Sex: 73 / F ADM Date: 05/09/24 Loc: Room: [address] [place] [address] Type: ADM IN Attending Dr: Jackson Maki DO Copies to: DO Jackson Brizuela DO Ordering Provider: Leo Bell DO Date of Service: 05/11/24 MR/MR head/brain wo/w con: possible seizure. Known lung cancer MR head/brain wo/w con 05/09/2024 11:07 PM SIGN AND SYMPTOMS: Altered mental status, history of lung cancer, rule out metastatic disease. PROTOCOL: Multiplanar multisequence MR images of the brain were obtained with and without IV contrast CONTRAST: 15 mL of intravenous ProHance COMPARISON: 11/15/2023 FINDINGS: Extra axial spaces: Age appropriate. Hemorrhage: None. Ventricular system: Within normal limits. Basal cisterns: Within normal limits and not effaced. Cerebral parenchyma: Periventricular and subcortical white matter T2 and FLAIR hyperintense signal is noted consistent with chronic microvascular ischemic change. No abnormal postcontrast enhancement. Midline shift: None.. Cerebellum: Within normal limits. Brainstem: Within normal limits. OTHER: Calvarium: Normal marrow signal. Vascular system: Satisfactory flow voids within the anterior and posterior circulation. Visualized Paranasal sinuses: Within normal limits. Visualized Orbits: Within normal limits. Visualized upper cervical spine: Within normal limits. Sella and skull base: Within normal limits. MR/MR head/brain wo/w con IMPRESSION: No acute intracranial pathology or abnormal postcontrast enhancement. No evidence of intracranial metastatic disease. Chronic microvascular ischemic changes are redemonstrated as above. Impression dictated by: Mike Higgins M.D.05/11/2024 11:42 AM Dictation Location: [place] [address] Transcribed By: [facility] 05/11/24 1142 Dictated By: Mike Higgins II, MD 05/11/24 1132 Signed By: <Electronically signed by Mike Higgins II, MD in OV> 05/11/24 1142 ECH ECHO TRANSTHORACIC Observed: 024 9:49 AM Status: COMPLETED Source: [facility] [address] Echocardiogram Signed Patient: Lupe Butler MR#: [id number] 1 : 1950 Acct:[id number] Age/Sex: 73 / F ADM Date: 05/09/24 Loc: Room: [address] [place] [address] Type: ADM IN Attending Dr: Jackson Maki DO Ordering Provider: Mike Zamorano MD Date of Service: 05/11/24 ECH/ECH echo transthoracic: lvh, htn Copies to: MD Gopi Schaefer MD, [facility] Height: 64 in Weight: 161 lb Performed By: Huong Torres, [facility] BSA: 1.8 m2 BP: 167/73 mmHg HR: 74 Reason For Study: lvh, htn History: HTN, CABG, CAD, Hyperlipidemia, Left Lung Removed - 2 years ago,lung cancer, smoker, Breast implants Interpretation Summary Mild concentric left ventricular hypertrophy. Upper septal hypertrophy (sigmoid septum), normal variant. Ejection Fraction = 60-65%. The left atrium appears mildly dilated. There is trace mitral regurgitation. A variety of Doppler measurements indicate pseudonormalized left ventricular relaxation, which is associated with grade II/IV or mild to moderate diastolic dysfunction. Mitral valve annulus tissue Doppler imaging is consistent with elevated left atrial pressure. There is mild tricuspid regurgitation. The right ventricular systolic pressure is 60 mmHg. Right ventricular systolic pressure is consistent with moderate to severe pulmonary hypertension. Procedure/Quality: A two-dimensional transthoracic echocardiogram with color flow and Doppler was performed. The study was technically good in quality. Left Ventricle: Mild concentric left ventricular hypertrophy. Upper septal hypertrophy (sigmoid septum), normal variant. Left ventricular systolic function is normal. Ejection Fraction = 60-65%. A variety of Doppler measurements indicate pseudonormalized left ventricular relaxation, which is associated with grade II/IV or mild to moderate diastolic dysfunction. Mitral valve annulus tissue Doppler imaging is consistent with elevated left atrial pressure. Left Atrium: The left atrium appears mildly dilated. The atrial septum appears normal. Right Atrium: The right atrium appears normal in size. Right Ventricle: The right ventricular size, thickness and function are normal. Aortic Valve: The aortic valve is mildly sclerotic. The aortic valve is trileaflet. Mitral Valve: There is mild to moderate mitral annular calcification. The mitral valve is mildly sclerotic. There is trace mitral regurgitation. Tricuspid Valve: The tricuspid valve is normal in structure. There is mild tricuspid regurgitation. The right ventricular systolic pressure is 60 mmHg. Right ventricular systolic pressure is consistent with moderate to severe pulmonary hypertension. Pulmonic Valve: The pulmonic valve is not well seen, but is grossly normal. Arteries: The aortic root is normal size. Pericardium/Pleura: No pericardial effusion seen. There is no pleural effusion. IVC/Hepatic Veins: The inferior vena cava was not visualized during the exam. Miscellaneous: No thrombus, vegetation or mass is seen. Measurements with Normals IVSd: 1.1 cm (0.7-1.1 cm)LVIDd: 4.4 cm (3.7-5.4 cm) LVPWd: 1.2 cm (0.7-1.1 cm)LVIDs: 2.8 cm (2.3-3.6 cm) LA dimension: 4.2 cm (2.3-4.0 cm)Ao root diam: 3.3 cm(2.0-3.6 cm) asc Aorta Diam: 3.3 cm(2.1-3.4cm) Doppler with Normals RVSP(TR): 60.2 mmHg (18-35mmHg) LV V1 max: 137.0 cm/sec (0.7-1.7m/s)MV E max rell: 139.0 cm/sec(0.8-1.3m/s) MV A max rell: 137.0 cm/sec(0.0-0.0m/s) MV E/A: 1.0 (<1.5) MMode/2D Measurements Calculations RVDd: 3.8 cm FS: 36.4 % Ao root area: LVOT diam: 2.1 cm TAPSE: 0.96 cm EDV(Teich): 8.6 cm2 LVOT area: 3.5 cm2 RV S Rell: 87.7 ml 8.7 cm/sec ESV(Teich): 29.6 ml EF(Teich): 66.3 % __ LVLd ap4: 7.4 cm SV(MOD-sp4): LAV(MOD-sp4): LA A4 area: 22.7 cm2 EDV(MOD-sp4): 44.1 ml 70.0 ml LA length (vol): 71.5 ml 6.0 cm LVLs ap4: 5.8 cm ESV(MOD-sp4): 27.4 ml EF(MOD-sp4): 61.7 % Doppler Measurements Calculations MV dec time: MV V2 max: E/E' lat: 22.0 MV dec slope: 0.18 sec 176.0 cm/sec E/E' med: 36.5 764.0 cm/sec2 MV max P.4 mmHg MV V2 mean: 116.0 cm/sec MV mean P.0 mmHg MV V2 VTI: 53.4 cm MVA(VTI): 2.2 cm2 __ Ao V2 max: LV V1 max PG: TV max PG: PI end-d rell: 194.0 cm/sec 7.5 mmHg 57.0 mmHg 159.0 cm/sec Ao max PG: LV V1 mean P.1 mmHg 4.0 mmHg Ao mean PG: LV V1 mean: 10.0 mmHg 98.6 cm/sec Ao V2 mean: LV V1 VTI: 33.7 cm 148.0 cm/sec LV dP/dt: Ao V2 VTI: 44.0 cm 866.0 mmHg/s KARYN(I,D): 2.7 cm2 KARYN(V,D): 2.4 cm2 __ TR max rell: 378.0 cm/sec TR max P.2 mmHg RAP systole: 3.0 mmHg Transcribed By: SCV Performed At: 05/11/24 0949 Signed By: Gopi Garay MD, [facility] 05/11/242005 COMPLETE BLOOD COUNT AUTO DIFF Collected: 05/11/2024 4:10 AM Status: F Source: [facility] TYPE CODE TESTS RESULT OUT OF RANGE REFERENCE UNITS LAB WBC White Blood Count 15.9 High 3.8-11.6 10*3/uL LAB UNWBC Uncorrected WBC 15.9 High 3.8-11.6 10*3/uL LAB RBC Red Blood Count 4.32 Normal 3.60-5.00 LAB HGB Hemoglobin 10.3 Low 11.8-15.4 g/dL LAB HCT Hematocrit 33.0 Low 34.0-46.4 % LAB MCV Mean Corpuscular Volume 76.3 Low 80-100 fL LAB MCH Mean Corpuscular Hemoglobin 23.9 Low 24.7-34.3 pg LAB MCHC Mean Corpuscular HGB Conc 31.3 Low 32.0-35.0 g/dL LAB RDW Red Cell Distribution Width 21.3 High 11.9-15.3 % LAB PLT Platelet Count 299 Normal 150-450 10*3/uL LAB MPV Mean Platelet Volume 9.2 Normal 6.3-10.7 fL LAB NE% Neutrophils % (Auto) 83.5 . % LAB LY% Lymphocytes % (Auto) 8.6 . % LAB MO% Monocytes % (Auto) 6.9 . % LAB EO% Eosinophils % (Auto) 0.1 . % LAB BA% Basophils % (Auto) 0.9 . % LAB NRBC% NRBC% 0.0 Normal 0-0.5 /100{WBC} LAB NE# Neutrophils # (Auto) 13.2 High 1.8-7.7 10*3/uL LAB LY# Lymphocytes # (Auto) 1.4 Normal 1.00-4.8 10*3/uL LAB MO# Monocytes # (Auto) 1.1 High 0.0-0.8 10*3/uL LAB EO# Eosinophils # (Auto) 0.0 Normal 0.0-0.45 10*3/uL LAB BA# Basophils # (Auto) 0.1 Normal 0.0-0.2 10*3/uL Result Comment: PERFORMED BY : [place] [address] PATHOLOGIST MATERIALS ENGINEER JACQUE SHER M.D. Performed By: #### CBC, CMP #### [address] COMPREHENSIVE METABOLIC PANEL Collected: 05/11/2024 4:10 AM Status: F Source: [facility] TYPE CODE TESTS RESULT OUT OF RANGE REFERENCE UNITS LAB GLU Glucose 119 High 70-100 mg/dL Result Comment: Random Gluco se Reference Range is dependent on time and content of last meal. Glucose of more than 200 mg/dL in a nonstressed, ambulatory subject supports the diagnosis of Diabetes Mellitus. ADA recommended reference range LAB BUN Blood Urea Nitrogen 40 High 7-25 mg/dL LAB CREATT Creatinine 2.56 Increased 0.60-1.20 mg/dL LAB GFReNR Estimated GFR 19.495 LAB NA Sodium 137 Normal 136-145 mmol/L LAB K Potassium 4.3 Normal 3.5-5.1 mmol/L LAB CL Chloride 98 Normal 98-107 mmol/L LAB CO2 Carbon Dioxide 29.2 Normal 21.0-31.0 mmol/L LAB GAP Anion Gap 14.1 Normal 6.0-15.0 LAB CA Calcium 8.7 Normal 8.6-10.3 mg/dL LAB TP Total Protein 6.3 Low 6.4-8.9 g/dL LAB ALB Albumin Level 3.5 Normal 3.5-5.7 g/dL LAB GLOB Globulin 2.8 g/dL LAB AGRATIO Albumin/Globulin Ratio 1.3 LAB BILIT Bilirubin,Total 1.2 High 0.3-1.0 mg/dL LAB AST Aspartate Amino Transferase 17 Normal 13-39 U/L LAB ALT Alanine Aminotransferase 13 Normal 7-52 U/L LAB ALP Alkaline Phosphatase 61 Normal 34-104 U/L LAB CRCLPHA Creatinine Clr Calc Pharmacy 19.84 Result Comment: PERFORMED BY : [address] [place] [id number] PATHOLOGIST MATERIALS ENGINEER JACQUE SHER M.D. Performed By: #### CBC, CMP #### [place] [id number] [facility] CNPN Observed: 05/11/2024 12:00 AM Status: COMPLETED Source: [facility] Telephone (NCCAP) LUPE BUTLER ([id number]) 1950 F Date Time Provider Department 05/11/24 JAYY PARKER NCCAP During your visit today, we recorded the following information about you: Chely Guillen 05/11/2024 3:45 PM Signed Called and spoke w/ patient's regarding an appointment and during conversation, spouse mentioned she's currently inpatient at [facility] and will not be discharged for her appointment tomorrow. She went in on Saturday w/ seizure like symptoms and they ended up admitted her, unsure of discharge date at this time. Pham Ellis, LIU 05/11/2024 3:49 PM Signed Update: Spoke w/ Adrian, pt's bedside nurse. Pt admitted to , RM 4013. Pt has had no other seizure like episodes since presenting to the hospital. MRI Brain, EEG, and ECHO done. Results pending. Nurse reports the pt's SBP has been 280's. Cardiology adjusting medications. Pt alert and otherwise doing well. Leilani: Please scan records when available. Thanks! LIU Silva Jennifer L 05/12/2024 8:14 AM Signed Records scanned. Pham Proctor RN 05/13/2024 9:26 AM Signed Call placed to [address] for update. Pt's bedside not available for report. Will call back at a later time. LIU Silva Rebecca, RN 05/14/2024 9:03 AM Signed Update: Spoke w/ pt's bedside nurse. Reports the pt is now intubated and on dialysis. Receiving medrol bid. SBP 140-150's w/ meds. Pt has been accepted for transfer to F ICU. Waiting on a bed to open. LIU Silva Rebecca, LIU 05/15/2024 9:26 AM Signed Call placed to [facility] ICU for update. No answer. Message left requesting call back. LIU Silva Rebecca, RN 05/18/2024 11:44 AM Signed Update: Pt extubated on Saturday. 95% on oxygen @ 2 LPM. Pt still receiving dialysis. Will need permanent cath placed. No discharge plans at this time. LIU Silva Rebecca, LIU 05/20/2024 10:30 AM Signed Update: Spoke w/ Loulou, pt's bedside nurse. Reports the pt went into Afib w/ RVR over night. Currently on an amiodarone gtt. Cardiology consulted. Pt had a permanent dialysis cath placed yesterday per Dr Londono. Still on oxygen @ 2 LPM. LIU Silva Rebecca, LIU 05/22/2024 2:27 PM Signed Update: Pt discharged home yesterday. Summary in Epic. BRM: When would you like to see pt back for follow up? LIU Silva Brian R, MD 05/24/2024 7:02 AM Signed Will need to hold treatment until her kidney function stabilizes on her dialysis schedule. Approximately 2 weeks for follow-up would be reasonable Pham Proctor RN 05/25/2024 8:01 AM Signed Clerical: Please schedule pt to see BRM in 2 weeks. I can give her the appointment when I calls her for follow up. Thanks! LIU Silva Trisha 05/25/2024 9:38 AM Signed I have her scheduled on 06/08/24 at 2:40PM with Dr Keith Rodriguez PSS Allergies As of Date: 05/11/2024 Noted Allergy Reaction MORPHINE 09/08/2009 1 - Mental Status Change LATEX 08/13/2023 9 - Itching NITROFURAN ANALOGUES 07/07/2001 SULFA (SULFONAMIDE ANTIBIOTICS) 07/07/2001 Date Reviewed: 05/06/2024 Reviewed by: Mehnaz Duran PA-C - Fully Assessed Reason for Visit: Hospital Admission [917] Prescriptions as of 05/25/2024 - predniSONE (DELTASONE) 20 mg tablet Take 2 tablets by mouth once daily. - amLODIPine (NORVASC) 10 mg tablet Take 1 tablet by mouth every afternoon. - furosemide (LASIX) 20 mg tablet Take 20 mg by mouth once daily as needed. - nitroglycerin sublingual (NITROQUICK) 0.4 mg SL tablet Dissolve 0.4 mg under the tongue every 5 minutes as needed for chest pain. - HYDROcodone-Acetaminophen (NORCO) 7.5-325 mg per tablet Take 1 tablet by mouth every 8 hours as needed for pain. - metoprolol tartrate 75 mg tab Take 75 mg by mouth twice daily. - alprazolam(XANAX 0.5 MG TAB) Take one(1) tablet two (2) times daily. Problem List As Of Date 05/11/2024 Noted Resolved Anxiety and depression [F41.9, F32.A] LUMBAGO [M54.50] Essential hypertension [I10] Other and Unspecified Hyperlipidemia [E78.5] COUGH [R05.9] 08/15/2001 TIA (Transient Ischemic Attack) [G45.9] 09/08/2009 Anemia [D64.9] 09/11/2009 SUMMARY [V999.95] 09/12/2009 PVD (peripheral vascular disease) ([facility]) [I73.9] 12/21/2022 Difficult intubation [T88.4XXA] 12/21/2022 History of carotid endarterectomy [Z98.890] 12/21/2022 Smoker [F17.200] 12/21/2022 Atherosclerosis of [place] coronary artery of na*12/21/2022 NASIR (obstructive sleep apnea) [G47.33] 12/21/2022 Palpitations [R00.2] 12/21/2022 Opioid use [F11.90] 12/21/2022 Obesity (BMI 30.0-34.9) [E66.811] 12/21/2022 Blood pressure instability [I99.8] 12/25/2022 Primary lung cancer with metastasis from lung t*01/15/2023 Encounter Status:Closed by JAYY PARKER on 05/24/24 DIPSTICK AND MICROSCOPIC Collected: 12:20 PM Status: F Source: [facility] Order Comment: Name Collecti on Type:: Clean-Voided Midstream TYPE CODE TESTS RESULT OUT OF RANGE REFERENCE UNITS LAB UCOL Color,Urine Yellow Yellow LAB UAPP Appearance,Uri ne Cloudy Abnormal Alert Clear LAB USG Specificy [place],Urine 1.018 Normal 1.001-1.030 LAB UPH pH,Urine 5.5 Normal 5.0-9.0 LAB ULE Leukocyte Esterase,Urine Negative Negative LAB UNIT Nitrite,Urine Negative Negative LAB UPRO Protein,Urine 70 High Negative mg/dL LAB UGL Glucose,Urine (UA) Normal Normal LAB UKET Ketones,Urine Negative Negative LAB UURO Urobilinogen,U rine Normal Normal LAB UBIL Bilirubin,Urin e Negative Negative LAB UBLD Occult Blood,Urine Negative Negative Result Comment: PERFORMED BY : [address] [address] PATHOLOGIST MATERIALS ENGINEER JACQUE SHER M.D. LAB URBC RBC,Urine 1-2 0-4 LAB UWBC WBC,Urine 5-9 High 0-4 LAB USQEPI Squamous Epithelial Cell,Urine 5-9 High 0-2 LAB UBACT Bacteria,Urine None Seen None Seen LAB UHYALC Hyaline Casts,Urine 9-19 High 0-8 LAB UCAS Other Casts,Urine 5-9 High None Seen LAB MUCUS Mucus,Urine 2+ Abnormal Alert Result Comment: PERFORMED BY : [address] [address] PATHOLOGIST MATERIALS ENGINEER JACQUE SHER M.D. Performed By: #### ADDONUAPL US, URDS #### [address] [address] [facility] DRUG SCREEN,URINE Collected: 05/10/2024 12:20 PM Sta tus: F Source: [facility] TYPE CODE TESTS RESULT OUT OF RANGE REFERENCE UNITS LAB URAMPS Amphetamine Screen,Urine Negative Negative LAB URBARBS Barbiturate Screen,Urine Negative Negative LAB URBENZS Benzodiazepines Screen,Urine Positive High Negative LAB URCOCS Cocaine Screen,Urine Negative Negative LAB UROPIS Opiate Screen,Urine Negative Negative LAB URPCPS Phencyclidine Screen,Urine Negative Negative LAB URTHCS Cannabinoid Screen,Urine Negative Negative Result Comment: These are un confirmed results and should not be used for legal purposes. Drug Cut-Off Concentration: AMPH 1000 ng/mL NESTOR 200 ng/mL ASHLEY 200 ng/mL COCM 300 ng/mL OP 300 ng/mL PCP 25 ng/mL THC 20 ng/mL PERFORMED BY: [place] [address] PATHOLOGIST MATERIALS ENGINEER JACQUE SHER M.D. Performed By: #### ADDONUAPL US, URDS #### [address] COMPLETE BLOOD COUNT AUTO DIFF Collected: 05/10/2024 4:45 AM Status: F Source: [facility] TYPE CODE TESTS RESULT OUT OF RANGE REFERENCE UNITS LAB WBC White Blood Count 14.6 High 3.8-11.6 10*3/uL LAB UNWBC Uncorrected WBC 14.6 High 3.8-11.6 10*3/uL LAB RBC Red Blood Count 4.35 Normal 3.60-5.00 LAB HGB Hemoglobin 10.5 Low 11.8-15.4 g/dL LAB HCT Hematocrit 32.8 Low 34.0-46.4 % LAB MCV Mean Corpuscular Volume 75.5 Low 80-100 fL LAB MCH Mean Corpuscular Hemoglobin 24.2 Low 24.7-34.3 pg LAB MCHC Mean Corpuscular HGB Conc 32.0 Normal 32.0-35.0 g/dL LAB RDW Red Cell Distribution Width 20.4 High 11.9-15.3 % LAB PLT Platelet Count 252 Normal 150-450 10*3/uL LAB MPV Mean Platelet Volume 9.5 Normal 6.3-10.7 fL LAB NE% Neutrophils % (Auto) 77.8 . % LAB LY% Lymphocytes % (Auto) 9.2 . % LAB MO% Monocytes % (Auto) 8.1 . % LAB EO% Eosinophils % (Auto) 3.4 . % LAB BA% Basophils % (Auto) 1.5 . % LAB NRBC% NRBC% 0.1 Normal 0-0.5 /100{WBC} LAB NE# Neutrophils # (Auto) 11.3 High 1.8-7.7 10*3/uL LAB LY# Lymphocytes # (Auto) 1.3 Normal 1.00-4.8 10*3/uL LAB MO# Monocytes # (Auto) 1.2 High 0.0-0.8 10*3/uL LAB EO# Eosinophils # (Auto) 0.5 High 0.0-0.45 10*3/uL LAB BA# Basophils # (Auto) 0.2 Normal 0.0-0.2 10*3/uL Result Comment: PERFORMED BY : [place] [address] PATHOLOGIST MATERIALS ENGINEER JACQUE SHER M.D. Performed By: #### CBC, PTT, BMP, PT #### [facility] [address] [place] [id number] [facility] BASIC METABOLIC PANEL Collected: 05/10/2024 4:45 AM Status: F Source: [facility] TYPE CODE TESTS RESULT OUT OF RANGE REFERENCE UNITS LAB GLU Glucose 82 Normal 70-100 mg/dL Result Comment: Random Gluco se Reference Range is dependent on time and content of last meal. Glucose of more than 200 mg/dL in a nonstressed, ambulatory subject supports the diagnosis of Diabetes Mellitus. ADA recommended reference range LAB BUN Blood Urea Nitrogen 30 High 7-25 mg/dL LAB CREATT Creatinine 1.66 High 0.60-1.20 mg/dL LAB GFReNR Estimated GFR 32.786 LAB NA Sodium 141 Normal 136-145 mmol/L LAB K Potassium 4.0 Normal 3.5-5.1 mmol/L LAB CL Chloride 99 Normal 98-107 mmol/L LAB CO2 Carbon Dioxide 29.6 Normal 21.0-31.0 mmol/L LAB GAP Anion Gap 16.4 High 6.0-15.0 LAB CA Calcium 7.9 Low 8.6-10.3 mg/dL LAB CRCLPHA Creatinine Clr Calc Pharmacy 30.59 Result Comment: PERFORMED BY : [facility] [address] [place] [address] PATHOLOGIST MATERIALS ENGINEER JACQUE SHER M.D. Performed By: #### CBC, PTT, BMP, PT #### [place] [id number] [facility] PROTHROMBIN TIME INR Collected: 05/10/2024 4:45 AM S tatus: F Source: [facility] TYPE CODE TESTS RESULT OUT OF RANGE REFERENCE UNITS LAB R PT Prothrombin Time 12.1 Normal 9.0-12.9 s Result Comment: A hematocrit value greater than 55% may lead to inaccurate results in coagulation testing. Patients having hematocrit values >55% require a special collection tube for coagulation studies. Please contact the laboratory at [phone] for redraw instructions. LAB INR INR 1.0 Result Comment: INR Therapeu tic Range A) Pre- and Peroperative OAT started two weeks before surgery. NOT HIP SURGERY: 1.5 - 2.5 HIP SURGERY: 2 - 3 B) Primary and secondary prevention of venous THROMBOSIS: 2 - 3 C) Active venous thrombosis, pulmonary embolism and prevention of recurrent venous thrombosis: 2 - 3 D) Prevention of arterial thromboembolism including patients with mechanical heart valves: 3 - 4.5 Performed By: #### CBC, PTT, BMP, PT #### [address] [address] [facility] PARTIAL THROMBOPLASTIN TIME Collected: 05/10/2024 4:4 5 AM Status: F Source: [facility] TYPE CODE TESTS RESULT OUT OF RANGE REFERENCE UNITS LAB PTT Partial Thromboplastin Time 26.5 Normal 25.1-36.5 s Result Comment: A hematocrit value greater than 55% may lead to inaccurate results in coagulation testing. Patients having hematocrit values >55% require a special collection tube for coagulation studies. Please contact the laboratory at [phone] for redraw instructions. PERFORMED BY: [place] [id number] PATHOLOGIST MATERIALS ENGINEER JACQUE SHER M.D. Performed By: #### CBC, PTT, BMP, PT #### [place] [id number] [facility] RESPIRATORY (UPPER) PANEL, PCR Observed: 05/10/2024 4:45 AM Status: F Source: [facility] Adenovirus Not detected Bordetella parapertussis Not detected Chlamydia pneumoniae Not detected Coronavirus 229E Not detected Coronavirus HKU1 Not detected Coronavirus NL63 Not detected Coronavirus OC43 Not detected Influenza A Not detected Influenza B Not detected Human Metapneumovirus Not detected Mycoplasma pneumoniae Not detected Parainfluenza Virus 1 Not detected Parainfluenza Virus 2 Not detected Parainfluenza Virus 3 Not detected Parainfluenza Virus 4 Not detected Bordetella pertussis-ptxP Not detected Human Rhino/Enterovirus Not detected Resp. Syncytial Virus Not detected COVID-19 Detected/Not Detected Not detected Blank Space FLUA TEST INCLUDES Influenza A tests for the following clinically FLUA TEST INCLUDES significant subtypes: FLUA TEST INCLUDES - Influenza A FLUA TEST INCLUDES - Influenza A H1 FLUA TEST INCLUDES - Influenza A H1 2009 FLUA TEST INCLUDES - Influenza A H3 Blank Space PERFORMED BY: [place] [address] PATHOLOGIST MATERIALS ENGINEER JACQUE SHER M.D. Performed By: #### RESP PANE L UPP., BIOFIRECOVNOTDE #### [facility] [address] BIOFIRE NOT DETECTED Collected: 05/10/2024 4:45 AM S tatus: F Source: [facility] TYPE CODE TESTS RESULT OUT OF RANGE REFERENCE UNITS LAB BIOFIRECOVNOTDE BioFire Not Detected Not Detected Not Detecte Result Comment: This is a du plicate RP2.1 COVID (PCR) result to be used for statistical tracking purpose only. PERFORMED BY: [place] [address] PATHOLOGIST MATERIALS ENGINEER JACQUE SHER M.D. Performed By: #### RESP PANE L UPP., BIOFIRECOVNOTDE #### [address] BLOOD CULTURE Observed: 05/09/2024 11:35 PM Status: F Source: [facility] NO GROWTH 5 DAYS PERFORMED BY: [place] [address] PATHOLOGIST MATERIALS ENGINEER JACQUE SHER M.D. Performed By: #### CUBLD ### # [address] BLOOD CULTURE Observed: 05/09/2024 11:28 PM Status: F Source: [facility] NO GROWTH 5 DAYS PERFORMED BY: [place] [address] PATHOLOGIST MATERIALS ENGINEER JACQUE SHER M.D. Performed By: #### CUBLD ### # [address] XR CHEST 1V PORTABLE Observed: 7:07 PM Status: COMPLETED Source: [facility] [place] [address] XRay Report Signed Patient: Lupe Butler MR#: [id number] 1 : 1950 Acct:[id number] Age/Sex: 73 / F ADM Date: 05/09/24 Loc: ER Room: Type: [facility] ER Attending Dr: Copies to: Jackson Hou MD Ordering Provider: Jackson Hou MD Date of Service: 05/09/24 XR/XR chest 1V portable: Altered Mental Status PORTABLE AP ERECT CHEST 1811 hours CLINICAL HISTORY: Increasing lethargy, fever and possible seizure. COMPARISON: 05/07/2024 Yogzpo-o-Feal catheter is again visualized on the right. There are median sternotomy wires. There are similar bilateral parenchymal changes. There is still slight blunting of the right lateral costophrenic angle which may be a small effusion. No pneumothorax is identified. The cardiac and mediastinal contours are stable. The bony structures are osteopenic. There is endplate spurring at the spine. XR/XR chest 1V portable IMPRESSION: SIMILAR PARENCHYMAL CHANGES AND SMALL RIGHT EFFUSION. Impression dictated by: Dasha Sam M.D.05/09/2024 7:09 PM Dictation Location: RADIO--02 Transcribed By: ZEFERINO 05/09/241908 Dictated By: Dasha Sam MD 05/09/241906 Signed By: <Electronically signed by MD Dasha Sam in OV> 05/09/241908 CT HEAD/BRAIN WO CON Observed: 7:02 PM Status: COMPLETED Source: [facility] [place] [address] CT Scan Report Signed Patient: Lupe Butler MR#: [id number] 1 : 1950 Acct:[id number] Age/Sex: 73 / F ADM Date: 05/09/24 Loc: ER Room: Type: [facility] ER Attending Dr: Copies to: Jackson Hou MD Ordering Provider: Jackson Hou MD Date of Service: 05/09/24 CT/CT head/brain wo con: Possible seizure CT BRAIN WITHOUT CONTRAST: CLINICAL HISTORY: Possible seizure. Increased lethargy and fever. History of lung cancer and recent thoracentesis. COMPARISON: 09/06/2019 and MRI 11/15/2023 TECHNIQUE: Contiguous axial unenhanced images were obtained through the brain. This CT exam was performed using one or more following dose reduction techniques: Automated exposure control, adjustment of the mA and/or kV according to patient size, or use of iterative reconstruction technique. FINDINGS: There is generalized atrophy. The ventricles are normal in size and position. Mild microvascular changes are noted. There are no additional areas of abnormal attenuation. There is no hemorrhage, mass effect or extra-axial collections. Empty sella is noted. The imaged paranasal sinuses are clear. There are some opacified mastoid air cells bilaterally. Carotid siphon and vertebral artery plaque is present. CT/CT head/brain wo con IMPRESSION: ATROPHY AND CHRONIC MICROVASCULAR CHANGES. NO ACUTE INTRACRANIAL ABNORMALITY. Impression dictated by: Dasha Sam M.D.05/09/2024 7:07 PM Dictation Location: RADIO--02 Transcribed By: ZEFERINO 05/09/241906 Dictated By: Dasha Sam MD 05/09/241901 Signed By: <Electronically signed by MD Dasha Sam in OV> 05/09/241906 VENOUS BLOOD GAS Collected: 05/09/2024 6:10 PM Statu s: F Source: [facility] TYPE CODE TESTS RESULT OUT OF RANGE REFERENCE UNITS LAB VBPH VBG PH Venous PH 7.39 Normal 7.32-7.43 LAB VBPCO2 VBG PCO2 49.9 Normal 38.0-50.0 mm[Hg] LAB VBPO2 VBG PO2 61.7 High 35.0-45.0 mm[Hg] LAB VBHCO3 VBG HCO3 29.5 High 23.0-29.0 mmol/L LAB VBBE VBG Base Excess 3.7 High -3.0-3.0 mmol/L LAB [id number] VBG Oxygen Saturation 90.9 High Off Scale 73.0-76.0 % LAB [id number] VBG O2 Content 7.0 Normal 6.6-9.7 mmol/L LAB VBTCO2 VBG TCO2 31.1 High 24.0-29.0 mmol/L LAB VBFIO2 VBG Frac Inspired O2 NA LAB VBDRAW VBG Draw Site Venous LAB RESPCRIT Respiratory Critical Result Comment: Critical Tanna ue called on: 05/09/2024 at 18:12 PERFORMED BY: [facility] Osbaldo [place] [address] PATHOLOGIST MATERIALS ENGINEER JACQUE SHER M.D. Performed By: #### VBG #### Point of Care testing , COMPLETE BLOOD COUNT AUTO DIFF Collected: 05/09/2024 5:58 PM Status: F Source: [facility] TYPE CODE TESTS RESULT OUT OF RANGE REFERENCE UNITS LAB WBC White Blood Count 20.1 High 3.8-11.6 10*3/uL LAB UNWBC Uncorrected WBC 20.1 High 3.8-11.6 10*3/uL LAB RBC Red Blood Count 4.73 Normal 3.60-5.00 LAB HGB Hemoglobin 11.3 Low 11.8-15.4 g/dL LAB HCT Hematocrit 35.8 Normal 34.0-46.4 % LAB MCV Mean Corpuscular Volume 75.8 Low 80-100 fL LAB MCH Mean Corpuscular Hemoglobin 23.8 Low 24.7-34.3 pg LAB MCHC Mean Corpuscular HGB Conc 31.4 Low 32.0-35.0 g/dL LAB RDW Red Cell Distribution Width 20.3 High 11.9-15.3 % LAB PLT Platelet Count 272 Normal 150-450 10*3/uL LAB MPV Mean Platelet Volume 9.6 Normal 6.3-10.7 fL LAB MDW Monocyte Distribution Width 20.19 High 0.00-20.00 % Result Comment: For adults i n ED, MDW > 20.0 may be associated with a higher risk of sepsis during the first 12 hrs of hospital admission LAB NE% Neutrophils % (Auto) 84.4 . % LAB LY% Lymphocytes % (Auto) 6.1 . % LAB MO% Monocytes % (Auto) 5.8 . % LAB EO% Eosinophils % (Auto) 2.9 . % LAB BA% Basophils % (Auto) 0.8 . % LAB NRBC% NRBC% 0.1 Normal 0-0.5 /100{WBC } LAB NE# Neutrophils # (Auto) 17.0 High 1.8-7.7 10*3/uL LAB LY# Lymphocytes # (Auto) 1.2 Normal 1.00-4.8 10*3/uL LAB MO# Monocytes # (Auto) 1.2 High 0.0-0.8 10*3/uL LAB EO# Eosinophils # (Auto) 0.6 High 0.0-0.45 10*3/uL LAB BA# Basophils # (Auto) 0.2 Normal 0.0-0.2 10*3/uL Result Comment: PERFORMED BY : [place] [address] PATHOLOGIST MATERIALS ENGINEER JACQUE SHER M.D. Performed By: #### CBC, ETOH , CK, CMP, HS TROP, TSH3, ACET #### [address] ETHYL ALCOHOL PROFILE Collected: 05/09/2024 5:58 PM Status: F Source: [facility] TYPE CODE TESTS RESULT OUT OF RANGE REFERENCE UNITS LAB ETHYALC Ethanol < 10 LAB ETHYLALC% Percent Ethanol Test not performed Result Comment: PERFORMED BY : [address] [address] PATHOLOGIST MATERIALS ENGINEER JACQUE SHER M.D. Performed By: #### CBC, ETOH , CK, CMP, HS TROP, TSH3, ACET #### [address] ACETAMINOPHEN Collected: 05/09/2024 5:58 PM Status: F Source: [facility] TYPE CODE TESTS RESULT OUT OF RANGE REFERENCE UNITS LAB ACET Acetaminophen 0.2 Low 10.0-30.0 ug/mL Result Comment: PERFORMED BY : [place] [address] PATHOLOGIST MATERIALS ENGINEER JACQUE SHER M.D. Performed By: #### CBC, ETOH , CK, CMP, HS TROP, TSH3, ACET #### [address] CREATINE KINASE Collected: 05/09/2024 5:58 PM Status : F Source: [facility] TYPE CODE TESTS RESULT OUT OF RANGE REFERENCE UNITS LAB CK Creatine Kinase 18 Low 30-223 U/L Performed By: #### CBC, ETOH , CK, CMP, HS TROP, TSH3, ACET #### [address] TROPONIN I HIGH SENSITIVITY Collected: 05/09/2024 5:5 8 PM Status: F Source: [facility] TYPE CODE TESTS RESULT OUT OF RANGE REFERENCE UNITS LAB HS TROP Troponin I High Sensitivity 39.1 High 0.0-15.0 pg/mL Result Comment: PERFORMED BY : [place] [address] PATHOLOGIST MATERIALS ENGINEER JACQUE SHER M.D. Performed By: #### CBC, ETOH , CK, CMP, HS TROP, TSH3, ACET #### [address] COMPREHENSIVE METABOLIC PANEL Collected: 05/09/2024 5 :58 PM Status: F Source: [facility] TYPE CODE TESTS RESULT OUT OF RANGE REFERENCE UNITS LAB GLU Glucose 126 High 70-100 mg/dL Result Comment: Random Gluco se Reference Range is dependent on time and content of last meal. Glucose of more than 200 mg/dL in a nonstressed, ambulatory subject supports the diagnosis of Diabetes Mellitus. ADA recommended reference range LAB BUN Blood Urea Nitrogen 25 Normal 7-25 mg/d L LAB CREATT Creatinine 1.42 High 0.60-1.20 mg/dL LAB GFReNR Estimated GFR 39.543 LAB NA Sodium 139 Normal 136-145 mmol/L LAB K Potassium 3.7 Normal 3.5-5.1 mmol/L LAB CL Chloride 98 Normal 98-107 mmol/L LAB CO2 Carbon Dioxide 31.2 High 21.0-31.0 mmol/L LAB GAP Anion Gap 13.5 Normal 6.0-15.0 LAB CA Calcium 8.7 Normal 8.6-10.3 mg/dL LAB TP Total Protein 6.4 Normal 6.4-8.9 g/dL LAB ALB Albumin Level 3.6 Normal 3.5-5.7 g/dL LAB GLOB Globulin 2.8 g/dL LAB AGRATIO Albumin/Globulin Ratio 1.3 LAB BILIT Bilirubin,Total 1.3 High 0.3-1.0 mg/dL Result Comment: Samples from patients who have taken Naproxen have shown spurious elevation in Total Bilirubin levels. A metabolite of Naproxen, O-desmethylnaproxen, has been shown to interfere with the Isaac-Jakub method for measuring Total Bilirubin. LAB AST Aspartate Amino Transferase 15 Normal 13-39 U/L LAB ALT Alanine Aminotransferase 14 Normal 7-52 U/L LAB ALP Alkaline Phosphatase 65 Normal 34-104 U/L LAB CRCLPHA Creatinine Clr C alc Pharmacy 34.74 Performed By: #### CBC, ETOH , CK, CMP, HS TROP, TSH3, ACET #### [address] THYROID STIMULATING HORMONE Collected: 05/09/2024 5:5 8 PM Status: F Source: [facility] TYPE CODE TESTS RESULT OUT OF RANGE REFERENCE UNITS LAB TSH3 Thyroid Stimulating Hormone 3.32 Normal 0.45-5.33 u[iU]/mL Result Comment: PERFORMED BY : [place] [address] PATHOLOGIST MATERIALS ENGINEER JACQUE SHER M.D. Performed By: #### CBC, ETOH , CK, CMP, HS TROP, TSH3, ACET #### [facility] [address] [place], [place] [id number] [facility] PROLACTIN Collected: 5:58 PM Status: F Source: [facility] TYPE CODE TESTS RESULT OUT OF RANGE REFERENCE UNITS LAB PRL Prolactin 19.19 Normal 2.74-19.64 ng/mL Result Comment: PERFORMED BY : [place] [address] PATHOLOGIST MATERIALS ENGINEER JACQUE SHER M.D. Performed By: #### PRL #### [address] ECG 12 LEAD ECG Observed: 05/09/2024 5:49 PM Status: COMPLETED Source: [facility] [place] [address] Electrocardiograph Report Signed Patient: Lupe Butler MR#: [id number] 1 : 1950 Acct:[id number] Age/Sex: 73 / F ADM Date: 05/09/24 Loc: Room: [address] [place] [address] Type: ADM IN Attending Dr: Leo Bell DO Ordering Provider: Jackson Hou MD Date of Service: 05/09/24 ECG/ECG 12 lead ECG: Altered Mental Status Copies to: Test Reason : Blood Pressure : 193/83 mmHG Vent. Rate : 79 BPM Atrial Rate : 79 BPM P-R Int : 136 ms QRS Dur : 78 ms QT Int : 402 ms P-R-T Axes : 84 47 125 degrees QTcB Int : 460 ms Normal sinus rhythm Biatrial enlargement T wave abnormality, consider lateral ischemia Abnormal ECG When compared with ECG of 05-May-2024 14:24, No significant change was found Confirmed by JACKSON HOU MD ([id number]) on 05/10/2024 1:28:33 AM Referred By: Electronically Signed By: JACKSON HOU MD Transcribed By: MUS Signed By Jackson Hou MD 04/22 0128 GLUCOSE POCT GLUCOMETERS Collected: 05/09/2024 5:47 P M Status: F Source: [facility] TYPE CODE TESTS RESULT OUT OF RANGE REFERENCE UNITS LAB GLUPOC Glucose Poc Glucometers 140 mg/dL Result Comment: Random Gluco se Reference Range is dependent on time and content of last meal. Glucose of more than 200 mg/dL in a nonstressed, ambulatory subject supports the diagnosis of Diabetes Mellitus. PERFORMED BY: [place] [id number] PATHOLOGIST MATERIALS ENGINEER JACQUE SHER M.D. Performed By: #### GLULS ### # Point of Care testing , US THORACENTESIS Observed: 05/07/2024 3:36 PM Status: COMPLETED Source: [facility] [place] [id number] Ultrasound Report Signed Patient: Lupe Butler MR#: [id number] 1 : 1950 Acct:[id number] Age/Sex: 73 / F ADM Date: 05/07/24 Loc: Room: Type: [facility] Attending Dr: Jabari Olson DO Ordering Provider: Jabari Olson DO Date of Service: 05/07/24 US/US thoracentesis: RT PLEURAL EFFUSION Copies to: Jabari Olson DO ULTRASOUND-GUIDED RIGHT THORACENTESIS CLINICAL DATA: Right pleural effusion on recent chest CT COMPARISON: CT 05/05/2024 Real-time ultrasound evaluation of the posterior right hemithorax was performed with patient in seated position. Pleural effusion is identified. Following sterile preparation and local seizure with lidocaine, a 4 Syriac Yueh sheath catheter was advanced into the pleural space with return of tea colored fluid. Approximately 950 mL of fluid was drained. The catheter was removed. There were no immediate complications. Post procedure chest x-ray showed no pneumothorax. Shortly after I left the room, the patient was reported to experience a transient episode of staring and slurred speech. Patient has never had this before. I was contacted by the nursing staff and upon returning to the room the patient was found to be stable condition and back to her normal. Hypertension was reported both before and after the procedure. Attempts were made to notify the patient's physician of this incident. Patient was eventually discharged home with instructions to follow-up with her doctor and to return to the emergency department if this recurred. US/US thoracentesis IMPRESSION: STATUS POST THERAPEUTIC RIGHT THORACENTESIS. Impression dictated by: Dasha Sam M.D.05/07/2024 3:43 PM Dictation Location: RADIO--14 Tech: Kareen Bairesstephany Transcribed By: ZEFERINO 05/07/24 1543 Dictated By: Dasha Sam MD 05/07/24 1536 Signed By: <Electronically signed by MD Dasha Sam in OV> 05/07/24 1543 XR CHEST 1V PORTABLE Observed: 12:06 PM Status: COMPLETED Source: [facility] [place] [address] XRay Report Signed Patient: Lupe Butler MR#: [id number] 1 : 1950 Acct:[id number] Age/Sex: 73 / F ADM Date: 05/07/24 Loc: Room: Type: [facility] Attending Dr: Jabari Olson DO Copies to: DO Dasha Otto MD Ordering Provider: Dasha Sam MD Date of Service: 05/07/24 XR/XR chest 1V portable: F/U right thoracentesis PA CHEST CLINICAL HISTORY: Follow-up after right thoracentesis COMPARISON: Chest x-ray and CT 05/05/2024 There are median sternotomy wires and a right-sided pacemaker. There is obstructive lung disease. There is scarring and/or atelectasis bilaterally. There is also still some airspace opacity at the right lower lung. There is minimal blunting of the right lateral costophrenic angle which may be a small amount of residual pleural fluid. No postprocedure pneumothorax is identified. The cardiac and basilar contours are similar. The bony structures are osteopenic. There is endplate spurring at the spine. XR/XR chest 1V portable IMPRESSION: CONTINUED PROBABLE CHANGES, GREATER ON THE RIGHT WHERE THERE IS A SMALL AMOUNT OF SUSPECTED RESIDUAL EFFUSION. NO POSTPROCEDURE PNEUMOTHORAX. Impression dictated by: Dasha Sam M.D.05/07/2024 12:11 PM Dictation Location: RADIO-PC-10 Transcribed By: ZEFERINO 05/07/24 1211 Dictated By: Dasha Sam MD 05/07/24 1206 Signed By: <Electronically signed by MD Dasha Sam in OV> 05/07/24 1211 GLUCOSE POCT GLUCOMETERS Collected: 05/07/2024 11:34 AM Status: F Source: [facility] TYPE CODE TESTS RESULT OUT OF RANGE REFERENCE UNITS LAB GLUPOC Glucose Poc Glucometers 93 mg/dL Result Comment: Random Gluco se Reference Range is dependent on time and content of last meal. Glucose of more than 200 mg/dL in a nonstressed, ambulatory subject supports the diagnosis of Diabetes Mellitus. PERFORMED BY: [facility] [address] [place] [place] [address] PATHOLOGIST MATERIALS ENGINEER JACQUE SHER M.D. Performed By: #### GLULS ### # Point of Care testing , DEIDRE Observed: 05/07/2024 12:00 AM Status: COMPLETED Source: [facility] Telephone (HEMASA) LUPE BUTLER ([id number]) 1950 F Date Time Provider Department 05/07/24 NADEEM MATOS HEMASA During your visit today, we recorded the following information about you: Nadeem Matos RN 05/07/2024 4:25 PM Signed Call received from pt stating she had a liter of punch colored fluid removed today and she's feeling better. Pt states she had some slurring of her words after the procedure, but is feeling better now. Pt thought her appointment was next Saturday, however it's on Saturday. Notified pt of this and she wrote it down. Nadeem Matos RN Allergies As of Date: 05/07/2024 Noted Allergy Reaction MORPHINE 09/08/2009 1 - Mental Status Change LATEX 08/13/2023 9 - Itching NITROFURAN ANALOGUES 07/07/2001 SULFA (SULFONAMIDE ANTIBIOTICS) 07/07/2001 Date Reviewed: 05/06/2024 Reviewed by: Mehnaz Duran PA-C - Fully Assessed Reason for Visit: Care Coordination [3491] Cmt: Clinical update Prescriptions as of 05/07/2024 - predniSONE (DELTASONE) 20 mg tablet Take 2 tablets by mouth once daily. - amLODIPine (NORVASC) 10 mg tablet Take 1 tablet by mouth every afternoon. - furosemide (LASIX) 20 mg tablet Take 20 mg by mouth once daily as needed. - nitroglycerin sublingual (NITROQUICK) 0.4 mg SL tablet Dissolve 0.4 mg under the tongue every 5 minutes as needed for chest pain. - HYDROcodone-Acetaminophen (NORCO) 7.5-325 mg per tablet Take 1 tablet by mouth every 8 hours as needed for pain. - metoprolol tartrate 75 mg tab Take 75 mg by mouth twice daily. - alprazolam(XANAX 0.5 MG TAB) Take one(1) tablet two (2) times daily. Problem List As Of Date 05/07/2024 Noted Resolved Anxiety and depression [F41.9, F32.A] LUMBAGO [M54.50] Essential hypertension [I10] Other and Unspecified Hyperlipidemia [E78.5] COUGH [R05.9] 08/15/2001 TIA (Transient Ischemic Attack) [G45.9] 09/08/2009 Anemia [D64.9] 09/11/2009 SUMMARY [V999.95] 09/12/2009 PVD (peripheral vascular disease) (HCC) [I73.9] 12/21/2022 Difficult intubation [T88.4XXA] 12/21/2022 History of carotid endarterectomy [Z98.890] 12/21/2022 Smoker [F17.200] 12/21/2022 Atherosclerosis of [place] coronary artery of na*12/21/2022 NASIR (obstructive sleep apnea) [G47.33] 12/21/2022 Palpitations [R00.2] 12/21/2022 Opioid use [F11.90] 12/21/2022 Obesity (BMI 30.0-34.9) [E66.811] 12/21/2022 Blood pressure instability [I99.8] 12/25/2022 Primary lung cancer with metastasis from lung t*01/15/2023 Encounter Status:Closed by NADEEM MATOS on 05/07/24 DEIDRE Observed: 05/06/2024 12:00 AM Status: COMPLETED Source: [facility] Telephone (HEMTSA) LUPE BUTLER ([id number]) 1950 F Date Time Provider Department 05/06/24 PHAM PROCTOR HEMARTEMIO During your visit today, we recorded the following information about you: Pham Proctor RN 05/06/2024 10:27 AM Signed EMERGENCY ROOM CALL BACK Today's date: May 06, 2024 Patient identified by name and date of . YES Primary Cancer Diagnosis: Lung Cancer Reason for Emergency Room Visit: Shortness of breath, hypertension Time of day presented to Emergency Room 1400 If Sat-Saturday during business hours: Did you contact your Pharmacy Data Analyst/Provider? Pt was in office for MARILYN w/ WILBERT Calvin Patient with any new symptom issues: No Psychosocial Risk Factors: None FOLLOW UP Patient reminded of her follow-up appointment with [facility] provider, Dr Jayy Parker on 05/12/24: Yes Next Pharmacy Data Analyst outreach with patient scheduled? NA Discussed - Spoke w/ pt who reports she is still SOB, but no worse than yesterday. Pox 95% w/ oxygen at 3 LPM. CTA was negative for PE. Showed a moderate right sided pleural effusion. Per pt, she is scheduled to have a thoracentesis done tomorrow at [facility]. BP in ER was 229/93. No additional mention of BP management noted in ER records. Per pt, she received a dose of Catapres while in the ER. Has not checked her BP today. Advised pt to check it and call RNCC back w/ reading. Pt verbalizes understanding and agrees. PATIENT EDUCATION/REINFORCEMENT Patient verbalizes understanding of when to seek Medical Attention? YES Patient verbalizes understanding of after hours and weekend phone number? YES Patient verbalizes understanding of next outreach appointment? YES Pham Proctor RN Allergies As of Date: 05/06/2024 Noted Allergy Reaction MORPHINE 09/08/2009 1 - Mental Status Change LATEX 08/13/2023 9 - Itching NITROFURAN ANALOGUES 07/07/2001 SULFA (SULFONAMIDE ANTIBIOTICS) 07/07/2001 Date Reviewed: 05/06/2024 Reviewed by: Mehnaz Duran PA-C - Fully Assessed Reason for Visit: Care Coordination [3491] Cmt: Emergency Room Call Back Prescriptions as of 05/06/2024 - iv contrast (will be provided with radiology test) CT Chest PE -Inject, intravenously, once for 1 dose.No IV access, insert saline lock prior to the beginning of sedation, infusion, injection of imaging exam. Discontinue saline lock post exam. If Pt. has a central line or IVAD, may access for administration according to line specific nursing protocol. Once exam is complete flush line and de-access according to line specific nursing protocol in the CT contrast administration guidelines link. - predniSONE (DELTASONE) 20 mg tablet Take 2 tablets by mouth once daily. - amLODIPine (NORVASC) 10 mg tablet Take 1 tablet by mouth every afternoon. - furosemide (LASIX) 20 mg tablet Take 20 mg by mouth once daily as needed. - nitroglycerin sublingual (NITROQUICK) 0.4 mg SL tablet Dissolve 0.4 mg under the tongue every 5 minutes as needed for chest pain. - HYDROcodone-Acetaminophen (NORCO) 7.5-325 mg per tablet Take 1 tablet by mouth every 8 hours as needed for pain. - metoprolol tartrate 75 mg tab Take 75 mg by mouth twice daily. - alprazolam(XANAX 0.5 MG TAB) Take one(1) tablet two (2) times daily. Problem List As Of Date 05/06/2024 Noted Resolved Anxiety and depression [F41.9, F32.A] LUMBAGO [M54.50] Essential hypertension [I10] Other and Unspecified Hyperlipidemia [E78.5] COUGH [R05.9] 08/15/2001 TIA (Transient Ischemic Attack) [G45.9] 09/08/2009 Anemia [D64.9] 09/11/2009 SUMMARY [V999.95] 09/12/2009 PVD (peripheral vascular disease) (HCC) [I73.9] 12/21/2022 Difficult intubation [T88.4XXA] 12/21/2022 History of carotid endarterectomy [Z98.890] 12/21/2022 Smoker [F17.200] 12/21/2022 Atherosclerosis [place] coronary artery of na*12/21/2022 NASIR (obstructive sleep apnea) [G47.33] 12/21/2022 Palpitations [R00.2] 12/21/2022 Opioid use [F11.90] 12/21/2022 Obesity (BMI 30.0-34.9) [E66.811] 12/21/2022 Blood pressure instability [I99.8] 12/25/2022 Primary lung cancer with metastasis from lung t*01/15/2023 Encounter Status:Closed by PHAM PROCTOR on 05/06/24 COAGULATION PROFILE Collected: 05/05/2024 4:[address] at[facility]: F Source: [facility] TYPE CODE TESTS RESULT OUT OF RANGE REFERENCE UNITS LAB R PT Prothrombin Time 10.7 Normal 9.0-12.9 s Result Comment: A hematocrit value greater than 55% may lead to inaccurate results in coagulation testing. Patients having hematocrit values >55% require a special collection tube for coagulation studies. Please contact the laboratory at [phone] for redraw instructions. LAB INR INR 0.9 Result Comment: INR Therapeu tic Range A) Pre- and Peroperative OAT started two weeks before surgery. NOT HIP SURGERY: 1.5 - 2.5 HIP SURGERY: 2 - 3 B) Primary and secondary prevention of venous THROMBOSIS: 2 - 3 C) Active venous thrombosis, pulmonary embolism and prevention of recurrent venous thrombosis: 2 - 3 D) Prevention of arterial thromboembolism including patients with mechanical heart valves: 3 - 4.5 LAB PTT Partial Thromboplastin Time 26.2 Normal 25.1-36.5 s Result Comment: A hematocrit value greater than 55% may lead to inaccurate results in coagulation testing. Patients having hematocrit values >55% require a special collection tube for coagulation studies. Please contact the laboratory at [phone] for redraw instructions. PERFORMED BY: [facility] [place] [id number] PATHOLOGIST MATERIALS ENGINEER JACQUE SHER M.D. Performed By: #### PP #### [place] [id number] [facility] CT ANGIO CHEST PE PROTOCOL Observed: 3:36 PM Status: COMPLETED Source: [facility] [place] [address] [place] [address] CT Scan Report Signed Patient: Lupe Butler MR#: [id number] 1 : 1950 Acct:[id number] Age/Sex: 73 / F ADM Date: 05/05/24 Loc: ER Room: Type: [facility] ER Attending Dr: Copies to: Jabari Olson DO Ordering Provider: Jabari Olson DO Date of Service: 05/05/24 CT/CT angio chest PE protocol: SOB hypoxia CT ANGIOGRAM OF THE CHEST, PULMONARY EMBOLISM PROTOCOL: CLINICAL INFORMATION: Shortness of breath high blood pressure for 2 weeks COMPARISON: CT chest 02/01/2023 TECHNIQUE: Following intravenous injection of contrast CT scans of the chest were obtained using pulmonary embolism protocol. Coronal and sagittal reconstructed images, as well as volume rendered CT pulmonary angiographic images were also submitted.The CT exam was performed using one or more of the following dose reduction techniques: Automated exposure control, adjustment of the MA and/or Kv according to patient size, or use of the iterative reconstruction technique. FINDINGS: Pulmonary Vasculature: Contrast bolus is adequate for evaluation of pulmonary embolism. Pulmonary trunk appears nondilated. No filling defects are identified to suggest pulmonary embolism. Mediastinum : Thoracic aorta is normal in caliber. No pericardial effusion. Prominent mediastinal lymph nodes. The esophagus is grossly unremarkable. Right-sided port is in place. Lungs: Moderate right-sided pleural effusion with compressive atelectasis involving the right lung base. Emphysema. Scattered areas of lung scarring/atelectasis with post surgical changes involving the right lung.. Ill-defined groundglass is seen involving the left upper lobe/lingula. No pneumothorax. No left-sided pleural effusion. No suspicious pulmonary nodule or mass. Upper abdomen: No acute findings Soft tissue/bones: Soft tissues surrounding the chest wall demonstrate no acute findings. Extracapsular rupture of the patient's right breast prosthesis unchanged from prior study. Osseous structures demonstrate degenerative change. CT/CT angio chest PE protocol IMPRESSION: NO EVIDENCE OF ACUTE PULMONARY EMBOLISM. MODERATE RIGHT-SIDED PLEURAL EFFUSION. PROMINENT MEDIASTINAL LYMPH NODES WHICH HAVE IMPROVED SINCE THE PRIOR STUDY. ATTENTION ON FOLLOW-UP IS SUGGESTED. ILL-DEFINED AREAS OF GROUNDGLASS ARE SEEN INVOLVING THE LEFT UPPER LOBE/LINGULA. DEVELOPING INFECTIOUS OR INFLAMMATORY PROCESS CANNOT BE EXCLUDED. CT FOLLOW-UP IS RECOMMENDED TO ENSURE RESOLUTION.. Impression dictated by: Angel Shahid Jr., D.O.05/05/2024 3:41 PM Dictation Location: RADIO-PC-15 Transcribed By: PWS 05/05/24 1541 Dictated By: Angel Shahid Jr, DO 05/05/24 1536 Signed By: <Electronically signed by Angel Shahid Jr, DO in OV> 05/05/24 1541 XR CHEST 1V PORTABLE Observed: 4 3:07 PM Status: COMPLETED Source: [facility] [address] XRay Report Signed Patient: Lupe Butler MR#: [id number] 1 : 1950 Acct:[id number] Age/Sex: 73 / F ADM Date: 05/05/24 Loc: ER Room: Type: [facility] ER Attending Dr: Copies to: Jabari Olson DO Ordering Provider: Jabari Olson DO Date of Service: 05/05/24 XR/XR chest 1V portable: Shortness of Breath/Dyspnea SINGLE VIEW CHEST CLINICAL HISTORY: Shortness of breath with chest pain. Recent chemotherapy. COMPARISON: CT chest 02/01/2023 FINDINGS: Right-sided port is in place. Post CABG changes are noted. Cardiomegaly with vascular congestion, right lower lobe airspace disease and small right pleural effusion. No pneumothorax or free air. XR/XR chest 1V portable IMPRESSION: CARDIOMEGALY, VASCULAR CONGESTION RIGHT LOWER LOBE AIRSPACE DISEASE AND SMALL RIGHT PLEURAL EFFUSION. PNEUMONIA SUPERIMPOSED ON CHF CANNOT BE EXCLUDED. FOLLOW-UP IS RECOMMENDED. Impression dictated by: Angel Shahid Jr., D.O.05/05/2024 3:10 PM Dictation Location: RADIO-PC-15 Transcribed By: ZEFERINO 05/05/24 1510 Dictated By: Angel Shahid Jr, DO 05/05/24 1507 Signed By: <Electronically signed by Angel Shahid Jr, DO in OV> 05/05/24 151 URINALYSIS Collected: 05/05/2024 3:06 PM Status: F Source: [facility] Order Comment: Name Collecti on Type:: Clean-Voided Midstream TYPE CODE TESTS RESULT OUT OF RANGE REFERENCE UNITS LAB UCOL Color,Urine Light-Yellow Yellow LAB UAPP Appearance,Uri ne Clear Clear LAB USG Specificy [place],Urine 1.014 Normal 1.001-1.030 LAB UPH pH,Urine 5.0 Normal 5.0-9.0 LAB ULE Leukocyte Esterase,Urine Negative Negative LAB UNIT Nitrite,Urine Negative Negative LAB UPRO Protein,Urine Negative Negative LAB UGL Glucose,Urine (UA) Normal Normal LAB UKET Ketones,Urine Negative Negative LAB UURO Urobilinogen,U rine Normal Normal LAB UBIL Bilirubin,Urin e Negative Negative LAB UBLD Occult Blood,Urine Negative Negative Result Comment: PERFORMED BY : [place] [address] PATHOLOGIST MATERIALS ENGINEER JACQUE SHER M.D. Performed By: #### UA #### [address] ECG 12 LEAD ECG Observed: 05/05/2024 2:24 PM Status: COMPLETED Source: [facility] [place] [address] Electrocardiograph Report Signed Patient: Lupe Butler MR#: [id number] 1 : 1950 Acct:[id number] Age/Sex: 73 / F ADM Date: 05/05/24 Loc: ER Room: Type: [facility] ER Attending Dr: Ordering Provider: Jabari Olson DO Date of Service: 05/05/24 ECG/ECG 12 lead ECG: Shortness of Breath/Dyspnea Copies to: Test Reason : Blood Pressure : */* mmHG Vent. Rate : 62 BPM Atrial Rate : 62 BPM P-R Int : 136 ms QRS Dur : 82 ms QT Int : 450 ms P-R-T Axes : 100 21 118 degrees QTcB Int : 456 ms Normal sinus rhythm Cannot rule out Anterior infarct (cited on or before 26-Aug-2019) T wave abnormality, consider lateral ischemia Abnormal ECG When compared with ECG of 01-Feb-2023 16:49, No significant change was found Confirmed by Jabari Olson DO ([id number]) on 05/05/2024 7:19:08 PM Referred By: Electronically Signed By: Jabari Olson DO Transcribed By: MUS Signed By Jabari Olson DO 1918 HEPATIC PANEL Collected: 05/05/2024 2:23 PM Status: F Source: [facility] TYPE CODE TESTS RESULT OUT OF RANGE REFERENCE UNITS LAB TP Total Protein 6.4 Normal 6.4-8.9 g/dL LAB ALB Albumin Level 3.8 Normal 3.5-5.7 g/dL LAB GLOB Globulin 2.6 g/dL LAB AGRATIO Albumin/Globulin Ratio 1.5 LAB BILIT Bilirubin,Total 0.7 Normal 0.3-1.0 mg/dL LAB BILID Bilirubin,Direct 0.10 Normal 0.03-0.18 mg/dL LAB BILII Bilirubin,Indirect 0.6 mg/dL LAB AST Aspartate Amino Transferase 21 Normal 13-39 U/L LAB ALT Alanine Aminotransferase 18 Normal 7-52 U/L LAB ALP Alkaline Phosphatase 67 Normal 34-104 U/L Performed By: #### HS TROP, CK, HEPATIC, SCAN CBC, BNP, BMP #### [facility] [address] [place] [address] BASIC METABOLIC PANEL Collected: 05/05/2024 2:23 PM Status: F Source: [facility] TYPE CODE TESTS RESULT OUT OF RANGE REFERENCE UNITS LAB GLU Glucose 103 High 70-100 mg/dL Result Comment: Random Gluco se Reference Range is dependent on time and content of last meal. Glucose of more than 200 mg/dL in a nonstressed, ambulatory subject supports the diagnosis of Diabetes Mellitus. ADA recommended reference range LAB BUN Blood Urea Nitrogen 41 High 7-25 mg/dL LAB CREATT Creatinine 1.48 High 0.60-1.20 mg/dL LAB GFReNR Estimated GFR 37.628 LAB NA Sodium 144 Normal 136-145 mmol/L LAB K Potassium 4.2 Normal 3.5-5.1 mmol/L LAB CL Chloride 104 Normal 98-107 mmol/L LAB CO2 Carbon Dioxide 32.4 High 21.0-31.0 mmol/L LAB GAP Anion Gap 11.8 Normal 6.0-15.0 LAB CA Calcium 8.5 Low 8.6-10.3 mg/dL LAB CRCLPHA Creatinine Clr Calc Pharmacy 35.04 Result Comment: PERFORMED BY : [place] [address] PATHOLOGIST MATERIALS ENGINEER JACQUE SHER M.D. Performed By: #### HS TROP, CK, HEPATIC, SCAN CBC, BNP, BMP #### [place] [id number] [place] CREATINE KINASE Collected: 05/05/2024 2:23 PM Status : F Source: [facility] TYPE CODE TESTS RESULT OUT OF RANGE REFERENCE UNITS LAB CK Creatine Kinase 22 Low 30-223 U/L Performed By: #### HS TROP, CK, HEPATIC, SCAN CBC, BNP, BMP #### [place] [id number] [place] TROPONIN I HIGH SENSITIVITY Collected: 05/05/2024 2:2 3 PM Status: F Source: [facility] TYPE CODE TESTS RESULT OUT OF RANGE REFERENCE UNITS LAB HS TROP Troponin I High Sensitivity 20.7 High 0.0-15.0 pg/mL Result Comment: PERFORMED BY : [place] [address] PATHOLOGIST MATERIALS ENGINEER JACQUE SHER M.D. Performed By: #### HS TROP, CK, HEPATIC, SCAN CBC, BNP, BMP #### [place] [id number] [place] B-TYPE NATRIURETIC PEPTIDE Collected: 05/05/2024 2:23 PM Status: F Source: [facility] TYPE CODE TESTS RESULT OUT OF RANGE REFERENCE UNITS LAB BNP B-Type Natriuretic Peptide 1181.0 High 5-100 pg/mL Result Comment: PERFORMED BY : [place] [address] PATHOLOGIST MATERIALS ENGINEER JACQUE SHER M.D. Performed By: #### HS TROP, CK, HEPATIC, SCAN CBC, BNP, BMP #### [facility] [address] SCAN AND CBC Collected: 05/05/2024 2:23 PM Status: F Source: [facility] TYPE CODE TESTS RESULT OUT OF RANGE REFERENCE UNITS LAB WBC White Blood Count 14.4 High 3.8-11.6 10*3/ uL LAB UNWBC Uncorrected WBC 14.4 High 3.8-11.6 10*3/uL LAB RBC Red Blood Count 4.94 Normal 3.60-5.00 LAB HGB Hemoglobin 11.7 Low 11.8-15.4 g/dL LAB HCT Hematocrit 37.7 Normal 34.0-46.4 % LAB MCV Mean Corpuscular Volume 76.4 Low 80-100 fL LAB MCH Mean Corpuscular Hemoglobin 23.7 Low 24.7-34.3 pg LAB MCHC Mean Corpuscular HGB Conc 31.0 Low 32.0-35.0 g/dL LAB RDW Red Cell Distribution Width 20.3 High 11.9-15.3 % LAB PLT Platelet Count 358 Normal 150-450 10*3/uL LAB MPV Mean Platelet Volume 8.9 Normal 6.3-10.7 fL LAB MDW Monocyte Distribution Width 15.98 Normal 0.00-20.00 % LAB NE% Neutrophils % (Auto) 82.1 . % LAB LY% Lymphocytes % (Auto) 11.4 . % LAB MO% Monocytes % (Auto) 3.5 . % LAB EO% Eosinophils % (Auto) 2.3 . % LAB BA% Basophils % (Auto) 0.7 . % LAB NRBC% NRBC% 0.1 Normal 0-0.5 /100{WBC } LAB NE# Neutrophils # (Auto) 11.8 High 1.8-7.7 10*3/uL LAB LY# Lymphocytes # (Auto) 1.6 Normal 1.00-4.8 10*3/uL LAB MO# Monocytes # (Auto) 0.5 Normal 0.0-0.8 10*3/uL LAB EO# Eosinophils # (Auto) 0.3 Normal 0.0-0.45 10*3/uL LAB BA# Basophils # (Auto) 0.1 Normal 0.0-0.2 10*3/uL LAB POLY Polychromasia Slight LAB HYPO Hypochromasia Marked LAB ANISO Anisocytosis Moderate LAB MICR Microcytosis Slight LAB PLT EST Platelet Estimate Normal Normal LAB PLTM Platelet Morphology Normal Normal Result Comment: PERFORMED BY : [place] [address] PATHOLOGIST MATERIALS ENGINEER JACQUE SHER M.D. Performed By: #### HS TROP, CK, HEPATIC, SCAN CBC, BNP, BMP #### [facility] [address] CNOVSP Observed: 05/05/2024 1:00 PM Status: COMPLETED Source: [facility] Visit (SP) Office ([place]) LUKELUPE ([id number]) 1950 F Date Time Provider Department 05/05/24 1:00 PM MEHNAZ DURAN During your visit today, we recorded the following information about you: Temperature Pulse Respiration Blood pressure 97.2 degrees 61/minute 18/minute 216/80 Weight Height 76 kg 1.588 m Reba Nguyen APRN.ASSISTANT FACILITY MANAGER 05/05/2024 1:43 PM Signed PATIENT NAME: Lupe Butler DATE: 03/24/2024 PRIMARY CARE PHYSICIAN: Dr. Jayy Guzman OTHER PHYSICIANS: Dr. Soto, Dr. Jacobs Portions of this encounter note have been copied from my note from 02/11/2024 and has been updated where appropriate, and reflect my current medical decision making from today. CC: This is a 73 year old female with metastatic lung cancer, seen for scheduled follow-up and continued treatment. INTERIM HISTORY: Since the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
[2024-12-14 09:05] LABS: Potassium 6.5 mmol/L (3.5-5.1)
== END 2024-12-14 08:05 | disposition home or self-care (01) ==
PROVIDERS: PCP Family Medicine; Visit Provider Internal Medicine Nephrology
DX: E87.5 Hyperkalemia (principal)
CPT/HCPCS: 36415; 84132

== ENCOUNTER 2025-01-18 08:58 | Outpatient (REF) | payer MEDICARE, SELFPAY ==
--- OUTSIDE RECORDS SUMMARY | 2025-01-18 09:05 | XMS_ITS | Encounter Summary ---
Author Organization [facility] Address [address] [facility] [place] [address] Care Team Providers Care Band Sawyer Name Role Phone Jayy Guzman MD Primary Care Provider [phone] Zo Tavarez AUTOTRANSFUSIONIST Unavailable Marely Seals NP Unavailable Kandace Harvey PLATFORM BEATER Unavailable [phone] Jayy Guzman MD Unavailable [phone] Marcellus Valenzuela DO Unavailable [phone] Marcellus Valenzuela DO Primary Care Provider [phone] Encounter Details Date Type Department Care Team (Late st Contact Info) Description 05/26/2024 Abstract [facility] [address] [place] [address] Jayy Guzman MD [address] [place] [address] Social History Tobacco Use Types Packs/Day Years Used Date Smoking Tobacco: Former Cigarettes Q uit: 06/2023 Smokeless Tobacco: Current Snuff Alcohol Use Standard Drinks/Week Comments Never 0 (1 standard drink = 0.6 oz pur e alcohol) Humiliation, Afraid, Rape, and Kick questionnair e Answer Date Recorded Within the last year, have y ou been afraid of your partner or ex-partner? No 04/15/2023 Within the last year, have y ou been humiliated or emotionally abused in other ways by your partner or ex-partner? No Within the last year, have y ou been kicked, hit, slapped, or otherwise physically hurt by your partner or ex-partner? No 04/15/2023 Within the last year, have y ou been raped or forced to have any kind of sexual activity by your partner or ex-partner? No 04/15/2023 Social Connection and Isolation Panel [NHANES] A nswer Date Recorded In a typical week, how many times do you talk on the phone with family, friends, or neighbors? Three times a week 04/15/2023 How often do you get togethe r with friends or relatives? Patient declined 04/15/2023 How often do you attend chur or uatsdin services? Patient declined 04/15/2023 Do you belong to any clubs o r organizations such as mu-ism groups, unions, fraternal or athletic groups, or school groups? Patient declined 04/15/2023 How often do you attend meet ings of the clubs or organizations you belong to? Patient declined 04/15/2023 Are you , , di vorced, , never , or living with a partner? 04/15/2023 AUDIT-C Answer Date Recorded Q1: How often do you have a drink containing alcohol? Never 05/21/2023 Q2: How many drinks containi ng alcohol do you have on a typical day when you are drinking? Patient does not drink Q3: How often do you have si x or more drinks on one occasion? Never 05/21/2023 Overall Financial Resource Strain (CARDIA) Answe r Date Recorded How hard is it for you to pa y for the very basics like food, housing, medical care, and heating? Not hard at all 04/15/2023 PHQ-2 Answer Date Recorded Patient Health Questionnaire-2 Score 4 03/12/2024 [facility] [place] of Occupat ional Health - Occupational Stress Questionnaire Answer Date Recorded Do you feel stress - tense, restless, nervous, or anxious, or unable to sleep at night because your mind is troubled all the time - these days? Rather much 04/15/2023 Exercise Vital Sign Answer Date Recorde d On average, how many days pe r week do you engage in moderate to strenuous exercise (like a brisk walk)? 0 days 04/15/2023 On average, how many minutes do you engage in exercise at this level? 0 min 04/15/2023 Hunger Vital Sign Answer Date Recorded Within the past 12 months, y ou worried that your food would run out before you got the money to buy more. Never true 04/15/20 23 Within the past 12 months, t he food you bought just didn't last and you didn't have money to get more. Never true 04/15/2023 PRAPARE - Transportation Answer Date Re corded In the past 12 months, has l ack of transportation kept you from medical appointments or from getting medications? No 03/23 In the past 12 months, has l ack of transportation kept you from meetings, work, or from getting things needed for daily living? No 04/15/2023 Housing Stability Vital Sign Answer Andrew e Recorded In the last 12 months, was t here a time when you were not able to pay the mortgage or rent on time? No 04/15/2023 In the last 12 months, how many places have you lived? 1 04/15/2023 In the last 12 months, was t here a time when you did not have a steady place to sleep or slept in a long term (including now)? No 04/15/2023 Comments No Sex and Gender Information Value Date Recorded Sex Assigned at Not on file Legal Sex Female 6:53 PM EDT Gender Identity Not on file Sexual Orientation Not on file documented as of this encounter Plan of Treatment Upcoming Encounters Date Type Department Care Team (Late st Contact Info) Description 02/23/2025 1:20 PM EDT Office Visit [facility] [address], [address] [place] [address] Marcellus Valenzuela DO [address] [place], [place] [address] documented as of this encounter Visit Diagnoses Not on filedocumented in this encounter Additional Health Concerns Assessment Noted Time PHQ-9 Depression Total Score: 10 024 10:00 AM EDT documented as of this encounter Care Teams Band Sawyer Relationship Specialty Start Date End Date Jayy Guzman MD [address] [place] [address] PCP - General Family Medicine 12/28/22 12/16/24 Jayy Guzman MD [address] [place] [address] PCP - Carolynn KEN 02/20/24 Marcellus Valenzuela DO [address] [place] [address] PCP - General Family Medicine 12/17/24 Zo Tavarez LSW [address] [place] [address] Driver'S License Reviewing Officer Family Medicine 02/22/23 Marely Seals NP [address] [place] [address] Nurse Practitioner Family Medicine 10/24/23 10/21/24 Kandace Harvey NP [address] [place] [address] Nurse Practitioner Family Medicine 10/24/23 12/16/24 Marcellus Valenzuela DO [address] [place] [address] Referring Physician Family Medicine 05/29/24 documented as of this encounter
--- OUTSIDE RECORDS SUMMARY | 2025-01-18 09:05 | XMS_ITS | Encounter Summary ---
Author Organization [facility] Address [address] [facility] [place] [place] [address] Care Team Providers Care Door Paneler Name Role Phone Jayy Guzman MD Primary Care Provider [phone] Zo Tavarez PLATFORM ARCHITECT Unavailable Marely Seals NP Unavailable Kandace Harvey PIG CASTER Unavailable [phone] Jayy Guzman MD Unavailable [phone] Marcellus Valenzueal DO Unavailable [phone] Marcellus Valenzuela DO Primary Care Provider Encounter Details Date Type Department Care Team (Late st Contact Info) Description 10/09/2023 Abstract [facility] [address] [place] [address] Jayy Guzman MD [address] [place] [address] Social History Tobacco Use Types Packs/Day Years [...] How often do you attend chur or scientology services? Patient declined 04/15/2023 Do you belong to any clubs o r organizations such as mormon groups, unions, fraternal or athletic groups, or [...] Answer Date Recorded Patient Health Questionnaire-2 Score 0 01/28/2023 [facility] [place] of Occupat ional Health - Occupational Stress [...] place to sleep or slept in a snf (including now)? No 04/15/2023 Comments No Sex [...] HOSPITAL FAMILY [facility] [address], [facility] [address] [place] [address] Marcellus Valenzuela DO [address] [facility] [address] [place] [address] documented as of this encounter Visit Diagnoses Not on filedocumented in this encounter Care Teams Door Paneler Relationship Specialty Start Date End Date Jayy Guzman MD [address] [place] [address] PCP - General Family Medicine 12/28/22 12/16/24 Jayy Guzman MD [address] [place] [address] PCP - Carolynn KEN 02/20/24 Marcellus Valenzuela DO [address] [place] [address] PCP - General Family Medicine 12/17/24 Zo Tavarez LSW [address] [place] [address] Packaging Technician Family Medicine 02/22/23 Marely Seals NP [address] [place] [address] Nurse Practitioner Family Medicine 10/24/23 10/21/24 Kandace Harvey NP [address] [place] [address] Nurse Practitioner Family Medicine 10/24/23 12/16/24 Marcellus Valenzuela DO [address] [place] [address] Referring Physician Family Medicine 05/29/24 documented as of this encounter
--- OUTSIDE RECORDS SUMMARY | 2025-01-18 09:05 | XMS_ITS | Encounter Summary ---
Author Organization [facility] Address [address] [place] [address] Care Team Providers Care Horse Breeder Name Role Phone Jayy Guzman MD Primary Care Provider [phone] Jie Johnson APRN.FREELANCE GRAPHIC DESIGNER Unavailable [phone] Jayy Parker MD Unavailable [phone] Roxana Wagner RN Unavailable [phone] Source Comments In the event this information is protected by the Federal Confidentiality of Alcohol and Drug AbusePatient Records regulations: The Federal rules restrict any use of the information to criminally investigate or prosecute any alcohol or drug abuse patient.[facility] Encounter Details Date Type Department Care Team (Late st Contact Info) Description 07/19/2023 Patient [facility] Radiology Procedure [address] [place] [address] Provider, Ccf You are scheduled for a Port Placement, On 07/25/2023. Social History Tobacco Use Types Packs/Day Years Used Date Smoking Tobacco: Every Day Cigarettes 0.3 40 Passive Smoke Exposure: Current Smokeless Tobacco: Never Alcohol Use Standard Drinks/Week Comments Not Currently 0 (1 standard drink = 0.6 oz pur e alcohol) rare PHQ-2 Answer Date Recorded PHQ-2 score 2 02/04/2023 Area Deprivation Index Answer Date Lasha rded National Score (1-100), lower number is lower ri sk 78 12/13/2022 State Score (1-10), lower number is lower risk 6 12/13/2022 Data from: https://www.neighborhoodatlas.medicine.[facility].edu/. 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 Not on file Not on file documented as of this encounter Plan of Treatment Not on file documented as of this encounter Visit Diagnoses Not on filedocumented in this encounter Care Teams Horse Breeder Relationship Specialty Start Date End Date Jayy Guzman MD [address] [place] [address] PCP - General 09/01/09 Jie Johnson, GRIP ASSEMBLER.FREELANCE GRAPHIC DESIGNER [address] [place] [address] Nurse Practitioner Hematology/Oncology 01/16/23 Jayy Parker MD [address] [place] [address] Physician Hematology/Oncology 01/16/23 Roxana Wagner, LIU [address] [place] [address] Specialty Athletic Director Hematology/Oncology 01/16/23 documented as of this encounter
--- OUTSIDE RECORDS SUMMARY | 2025-01-18 09:05 | XMS_ITS | Encounter Summary ---
Author Organization [facility] Address [address] [place] [place] [address] Care Team Providers Care White Hat Hacker Name Role Phone Jayy Guzman MD Primary Care Provider [phone] Zo Tavarez CALENDER MACHINE OPERATOR HELPER Unavailable Marely Seals NP Unavailable Kandace Harvey AUTO BODY REPAIR TECHNICIAN Unavailable [phone] Jayy Guzman MD Unavailable [phone] Marcellus Valenzuela DO Unavailable [phone] Marcellus Valenzuela DO Primary Care Provider [phone] Encounter Details Date Type Department Care Team (Late st Contact Info) Description 05/26/2024 Abstract [facility] [address] [place] [address] Jayy Guzman MD [address] [place] [address] Social History Tobacco Use Types Packs/Day Years [...] How often do you attend chur or rastafari services? Patient declined 04/15/2023 Do you belong to any clubs o r organizations such as rastafarian groups, unions, fraternal or athletic groups, or [...] Recorded Patient Health Questionnaire-2 Score 4 03/12/2024 [facility] [place] of Occupat ional Health - Occupational Stress [...] place to sleep or slept in a penitentiary (including now)? No 04/15/2023 Comments No Sex and Gender Information Value Date Recorded Sex Assigned at Not on file Legal Sex Female 6:53 PM EDT Gender Identity Not on file Sexual Orientation Not on file documented as of this encounter Plan of Treatment Upcoming Encounters Date Type Department Care Team (Late st Contact Info) Description 02/23/2025 1:20 PM EDT Office Visit [facility]ILY [facility]IC[facility] [address], [address] [place] [address] Marcellus Valenzuela DO [address] [place], [place] [address] documented as of this encounter Visit Diagnoses Not on filedocumented in this encounter Additional Health Concerns Assessment Noted Time PHQ-9 Depression Total Score: 10 024 10:00 AM EDT documented as of this encounter Care Teams White Hat Hacker Relationship Specialty Start Date End Date Jayy Guzman MD [address] [place] [address] PCP - General Family Medicine 12/28/22 12/16/24 Jayy Guzman MD [address] [place] [address] PCP - Carolynn KEN 02/20/24 Marcellus Valenzuela DO [address] [place] [address] PCP - General Family Medicine 12/17/24 Zo Tavarez LSW [address] [place] [address] Wind Tunnel Technician Family Medicine 02/22/23 Marely Seals NP [address] [place] [address] Nurse Practitioner Family Medicine 10/24/23 10/21/24 Kandace Harvey NP [address] [place] [address] Nurse Practitioner Family Medicine 10/24/23 12/16/24 Marcellus Valenzuela DO [address] [place] [address] Referring Physician Family Medicine 05/29/24 documented as of this encounter
--- OUTSIDE RECORDS SUMMARY | 2025-01-18 09:05 | XMS_ITS | Encounter Summary ---
Author Organization [facility] Address [address] [place] [address] Care Team Providers Care Senior Marketing Coordinator Name Role Phone Jayy Guzman MD Primary Care Provider [phone] Zo Tavarez DIE REPAIR MACHINIST Unavailable Marely Seals NP Unavailable Kandace Harvey ROOMING HOUSE INSPECTOR Unavailable [phone] Jayy Guzman MD Unavailable [phone] Marcellus Valenzuela DO Unavailable [phone] Marcellus Valenzuela DO Primary Care Provider [phone] Encounter Details Date Type Department Care Team (Late st Contact Info) Description 05/26/2024 Abstract [facility] [address] [place] [address] Jayy Guzman MD [address] [place] [address] Social History Tobacco Use Types Packs/Day Years [...] How often do you attend chur or voodoo services? Patient declined 04/15/2023 Do you belong to any clubs o r organizations such as roman catholic groups, unions, fraternal or athletic groups, or [...] Recorded Patient Health Questionnaire-2 Score 4 03/12/2024 [facility] of Occupat ional Health - Occupational Stress [...] place to sleep or slept in a fdc (including now)? No 04/15/2023 Comments No Sex and Gender Information Value Date Recorded Sex Assigned at Not on file Legal Sex Female 6:53 PM EDT Gender Identity Not on file Sexual Orientation Not on file documented as of this encounter Plan of Treatment Upcoming Encounters Date Type Department Care Team (Late st Contact Info) Description 02/23/2025 1:20 PM EDT Office Visit [facility] [address], [address] [place] [address] Marecllus Valenzuela DO [address] [place], [place] [id number] documented as of this encounter Visit Diagnoses Not on filedocumented in this encounter Additional Health Concerns Assessment Noted Time PHQ-9 Depression Total Score: 10 024 10:00 AM EDT documented as of this encounter Care Teams Senior Marketing Coordinator Relationship Specialty Start Date End Date Jayy Guzman MD [address] [place] [address] PCP - General Family Medicine 12/28/22 12/16/24 Jayy Guzman MD [address] [place] [address] PCP - Carolynn KEN 02/20/24 Marcellus Valenzuela DO [address] [place] [address] PCP - General Family Medicine 12/17/24 Zo Tavarez LSW [address] [place] [address] Compliance Lead Family Medicine 02/22/23 Marely Seals NP [address] [place] [address] Nurse Practitioner Family Medicine 10/24/23 10/21/24 Kandace Harvey NP [address] [place] [address] Nurse Practitioner Family Medicine 10/24/23 12/16/24 Marcellus Valenzuela DO [address] [place] [address] Referring Physician Family Medicine 05/29/24 documented as of this encounter
--- OUTSIDE RECORDS SUMMARY | 2025-01-18 09:05 | XMS_ITS | Encounter Summary ---
Author Organization [facility] Address [address] [place] [address] Care Team Providers Care Market Gardener Name Role Phone Jayy Guzman MD Primary Care Provider [phone] Zo Tavarez GOVERNMENT AFFAIRS MANAGER Unavailable Marely Seals NP Unavailable Kandace Harvey FIGHT MANAGER Unavailable [phone] Jayy Guzman MD Unavailable [phone] Marcellus Valenzuela DO Unavailable [phone] Marcellus Valenzuela DO Primary Care Provider [phone] Encounter Details Date Type Department Care Team (Late st Contact Info) Description 09/30/2023 Clinisync Result Encounter [facility] External Department Unsolicited Provider, Generic External Data Social History Tobacco Use Types Packs/Day Years [...] How often do you attend chur or restorationism services? Patient declined 04/15/2023 Do you belong to any clubs o r organizations such as mandaeism groups, unions, fraternal or athletic groups, or [...] Recorded Patient Health Questionnaire-2 Score 0 01/28/2023 [facility] of Occupat ional Health - Occupational Stress [...] money to buy more. Never true 04/15/20 Within the past 12 months, t he [...] place to sleep or slept in a assisted (including now)? No 04/15/2023 Comments No Sex and Gender Information Value Date Recorded Sex Assigned at Not on file Legal Sex Female 6:53 PM EDT Gender Identity Not on file Sexual Orientation Not on file documented as of this encounter Plan of Treatment Upcoming Encounters Date Type Department Care Team (Late st Contact Info) Description 02/23/2025 1:20 PM EDT [facility] [address] [facility] [address] [place] [address] Marcellus Valenzuela DO [address] [facility] [address] [place] [address] documented as of this encounter Procedures Procedure Name Priority Date/Time Associated Diagnosis Comments CT CHEST WO IV CONTRAST 09/30/2023 12:43 PM EDT documented in this encounter Results * CT chest wo IV contrast (09/30/2023 12:43 PM EDT) Anatomical Region Laterality Modality Body, Chest Computed Tomogra phy 09/30/2023 12:4 3 PM EDT Narrative 09/30/2023 9:55 PM EDT * * *Final Report* * * DATE OF EXAM: Sep 30 2023 12:43PM [facility] 0541 - CT CHEST WO IVCON / PROCEDURE REASON: 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, right (HCC) * * * * Physician Interpretation * * * * RESULT: EXAMINATION: CHEST CT WITHOUT CONTRAST CLINICAL HISTORY: Primary lung cancer with metastases Technique: Spiral CT acquisition of the chest from the thoracic inlet to the upper abdomen without contrast. MQ: CTCWO_6 CT Radiation dose: Integrated Dose-length product (DLP) for this visit = 334 mGy*cm CT Dose Reduction Employed: Automated exposure control (AEC) Comparison: 07/12/23 RESULT: Limitations: None. Lines, tubes, and devices: Right-sided Port-A-Cath. Lung parenchyma and airways: Postoperative changes compatible with a left upper lobe lobectomy. Postoperative changes of the right lung are noted. Moderately severe emphysematous changes of the lungs. Streaky opacities and reticulonodular opacities in the right lung, stable. Multiple nodular opacities measuring up to 7 mm. For example: Right lung (3:33, 35, 38, 46, 61, 73, 82) Left lung (3:93) Pleural space: Small right pleural effusion, increased. Lower neck, lymph nodes, and mediastinum: The imaged thyroid gland is normal. Mediastinal and hilar lymphadenopathy, stable. For example (short axis): * 1.4 cm right paratracheal (2:65), previously 1.5 cm * 1.3 cm subcarinal (2:80), previously 1.1 cm * 1.2 cm right hilar (2:90), previously 1.2 cm Heart, pericardium, and thoracic vessels: The thoracic aorta and main pulmonary artery are normal in caliber. The heart is mildly enlarged. Postoperative changes of the chest. Mitral annular calcifications. No pericardial effusion or thickening. Bones and soft tissues: Bilateral breast prostheses. No new osseous abnormalities. Upper abdomen: Left adrenal gland is incompletely visualized. No evidence of an adrenal mass in the visualized field of view. Anodize Machine Operator (topogram) images: No additional findings. IMPRESSION: 1. Small right pleural effusion, increased since 07/12/23. 2. Mild mediastinal and hilar lymphadenopathy, stable. 3. Multiple subcentimeter nodular opacities and reticulonodular opacities, stable. Transcribe Date/Time: Sep 30 2023 8:34P Dictated by: JONATHAN CARRERA MD This examination was interpreted and the report reviewed and electronically signed by: JONATHAN CARRERA MD on Sep 30 2023 9:53PM EST Thank you for allowing us to participate in the care of your patient. Should there be any questions regarding this interpretation, please call [phone]. If you are unable to reach us at the number above, please feel free to contact [facility] at [phone]. [id number]^[email or web address] Procedure Note Radiology, Radiologist, - 09/30/2023 * * *Final Report* * * DATE OF EXAM: Sep 30 2023 12:43PM [facility] - CT CHEST WO IVCON / PROCEDURE REASON: 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, right (HCC) * * * * Physician Interpretation * * * * RESULT: EXAMINATION: CHEST CT WITHOUT CONTRAST CLINICAL HISTORY: Primary lung cancer with metastases Technique: Spiral CT acquisition of the chest from the thoracic inlet to the upper abdomen without contrast. MQ: CTCWO_6 CT Radiation dose: Integrated Dose-length product (DLP) for this visit = 334 mGy*cm CT Dose Reduction Employed: Automated exposure control (AEC) Comparison: 07/12/23 RESULT: Limitations: None. Lines, tubes, and devices: Right-sided Port-A-Cath. Lung parenchyma and airways: Postoperative changes compatible with a left upper lobe lobectomy. Postoperative changes of the right lung are noted. Moderately severe emphysematous changes of the lungs. Streaky opacities and reticulonodular opacities in the right lung, stable. Multiple nodular opacities measuring up to 7 mm. For example: Right lung (3:33, 35, 38, 46, 61, 73, 82) Left lung (3:93) Pleural space: Small right pleural effusion, increased. Lower neck, lymph nodes, and mediastinum: The imaged thyroid gland is normal. Mediastinal and hilar lymphadenopathy, stable. For example (short axis): * 1.4 cm right paratracheal (2:65), previously 1.5 cm * 1.3 cm subcarinal (2:80), previously 1.1 cm * 1.2 cm right hilar (2:90), previously 1.2 cm Heart, pericardium, and thoracic vessels: The thoracic aorta and main pulmonary artery are normal in caliber. The heart is mildly enlarged. Postoperative changes of the chest. Mitral annular calcifications. No pericardial effusion or thickening. Bones and soft tissues: Bilateral breast prostheses. No new osseous abnormalities. Upper abdomen: Left adrenal gland is incompletely visualized. No evidence of an adrenal mass in the visualized field of view. Anodize Machine Operator (topogram) images: No additional findings. IMPRESSION: 1. Small right pleural effusion, increased since 07/12/23. 2. Mild mediastinal and hilar lymphadenopathy, stable. 3. Multiple subcentimeter nodular opacities and reticulonodular opacities, stable. Transcribe Date/Time: Sep 30 2023 8:34P Dictated by: JONATHAN CARRERA MD This examination was interpreted and the report reviewed and electronically signed by: JONATHAN CARRERA MD on Sep 30 2023 9:53PM EST Thank you for allowing us to participate in the care of your patient. Should there be any questions regarding this interpretation, please call [phone]. If you are unable to reach us at the number above, please feel free to contact [facility]Radiology at [phone]. [id number]^[email or web address] us Generic External Data Provider IMG CT PROCEDURES Final Result documented in this encounter Visit Diagnoses Not on filedocumented in this encounter Care Teams Market Gardener Relationship Specialty Start Date End Date Jayy Guzman MD [address] [place] [address] PCP - General Family Medicine 12/28/22 12/16/24 Jayy Guzman MD [address] [place] [address] PCP - Carolynn KEN 02/20/24 Marcellus Valenzuela DO [address] [place] [address] PCP - General Family Medicine 12/17/24 Zo Tavarez LSW [address] [place] [address] Personal Lines Account Executive Family Medicine 02/22/23 Marely Seals NP [address] [place] [address] Nurse Practitioner Family Medicine 10/24/23 10/21/24 Kandace Harvey FIGHT MANAGER [address] [place] [address] Nurse Practitioner Family Medicine 10/24/23 12/16/24 Marcellus Valenzuela DO [address] [place] [address] Referring Physician Family Medicine 05/29/24 documented as of this encounter
--- OUTSIDE RECORDS SUMMARY | 2025-01-18 09:05 | XMS_ITS | Encounter Summary ---
Author Organization [facility] Address [address] [place] [address] Care Team Providers Care Stove Carriage Operator Name Role Phone Jayy Guzman MD Primary Care Provider [phone] Zo Tavarez FUNDING COORDINATOR Unavailable Marely Seals NP Unavailable Kandace Harvey MAKEUP ARTIST Unavailable [phone] Jayy Guzman MD Unavailable [phone] Marcellus Valenzuela DO Unavailable [phone] Marcellus Valenzuela DO Primary Care Provider [phone] Encounter Details Date Type Department Care Team (Late st Contact Info) Description 09/25/2023 Abstract [facility] [address] [place] [address] Jayy Guzman MD [address] [place] [address] Social History Tobacco Use Types Packs/Day Years [...] How often do you attend chur or restorationist services? Patient declined 04/15/2023 Do you belong to any clubs o r organizations such as amish groups, unions, fraternal or athletic groups, or [...] Recorded Patient Health Questionnaire-2 Score 0 01/28/2023 [facility] [place] of Occupat ional Health - Occupational Stress [...] 02/23/2025 1:20 PM EDT Office Visit [facility] [address], [facility] [address] [place] [address] Marcellus Valenzuela DO [address] [facility] [address] [place] [address] documented as of this encounter Visit Diagnoses Not on filedocumented in this encounter Care Teams Stove Carriage Operator Relationship Specialty Start Date End Date Jayy Guzman MD [address] [place] [address] PCP - General Family Medicine 12/28/22 12/16/24 Jayy Guzman MD [address] [place] [address] PCP - Carolynn KEN 02/20/24 Marcellus Valenzuela DO [address] [place] [address] PCP - General Family Medicine 12/17/24 Zo Tavarez LSW [address] [place] [address] Gold Beater Family Medicine 02/22/23 Marely Seals NP [address] [place] [address] Nurse Practitioner Family Medicine 10/24/23 10/21/24 Kandace Harvey NP [address] [place] [address] Nurse Practitioner Family Medicine 10/24/23 12/16/24 Marcellus Valenzuela DO [address] [place] [address] Referring Physician Family Medicine 05/29/24 documented as of this encounter
--- OUTSIDE RECORDS SUMMARY | 2025-01-18 09:05 | XMS_ITS | Encounter Summary ---
Author Organization [facility] Address [address] [place] [address] Care Team Providers Care Instrument Worker Name Role Phone Kartik Guzman MD Primary Care Provider [phone] Zo Tavarez WIPING CLOTH CUTTER Unavailable Marely Seals NP Unavailable Kandace Harvey MACHINE STITCHER Unavailable [phone] Kartik Guzman MD Unavailable [phone] Marcellus Valenzuela DO Unavailable [phone] Marcellus Valenzuela DO Primary Care Provider [phone] Encounter Details Date Type Department Care Team (Late st Contact Info) Description 09/24/2023 Clinisync Result Encounter [facility] External Department Unsolicited [...] How often do you attend chur or confucianist services? Patient declined 04/15/2023 Do you belong to any clubs o r organizations such as spiritism groups, unions, fraternal or athletic groups, or [...] Recorded Patient Health Questionnaire-2 Score 0 01/28/2023 [facility] of Occupat ional Health - Occupational [...] place to sleep or slept in a alf (including now)? No 04/15/2023 Comments No Sex and Gender Information Value Date Recorded Sex Assigned at Not on file Legal Sex Female 6:53 PM EDT Gender Identity Not on file Sexual Orientation Not on file documented as of this encounter Plan of Treatment Upcoming Encounters Date Type Department Care Team (Late st Contact Info) Description 02/23/2025 1:20 PM EDT Office Visit [facility] [address] [facility], [address] [address] Marcellus Valenzuela DO [address] [facility] [address] [place] [address] documented as of this encounter Procedures Procedure Name Priority Date/Time Associated Diagnosis Comments [facility] SERPL-ACNC Routine 09/24/2023 1: 04 PM EST XR CHEST 2V FRONTAL/LAT 09/24/2023 1:03 PM EST documented in this encounter Results * [facility] SERPL-ACNC (09/24/2023 1:04 PM EST) [facility] SERPL-ACNC 3.350 0.270 - 4.200 mIU/L [facility] 09/24/2023 1:04 PM EST 09/24/2023 10:43 PM EST Narrative [facility] - 09/25/2023 5:35 AM EST Specimen Type: BLOOD SPECIMEN Ordering Facility: [facility] Address: [address] [place] [address] Original Ordering Provider: KARTIK CORREA us Generic External Data Provider CLINTipHive Woody hamilton Result [facility] [address] [facility] [address] [place] [address] * XR CHEST 2V FRONTAL/LAT (09/24/2023 1:03 PM EST) Anatomical Region Laterality Modality Other 09/24/2023 1:03 PM EST Narrative 09/24/2023 4:43 PM EST * * *Final Report* * * DATE OF EXAM: Sep 24 2023 1:03PM [id number] - XR CHEST 2V FRONTAL/LAT / PROCEDURE REASON: 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, right (HCC) * * * * Physician Interpretation * * * * RESULT: EXAMINATION: CHEST RADIOGRAPH (2 VIEW FRONTAL and LATERAL) CLINICAL HISTORY: 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, right (HCC) MQ: XC2_6 EXAM DATE/TIME: 09/24/2023 1:03 PM COMPARISON: Previous chest x-ray dated 02/06/2023. Chest CT dated 07/12/2023 RESULT: Lines, tubes, and devices: A right-sided chest port terminates in the lower SVC. Lungs and pleura: A small right pleural effusion is noted, similar to the previous CT performed in June 2023. Mixed interstitial and airspace opacity is present in the right mid and lower lung, compatible with the chronic subpleural interstitial opacity seen on the previous chest CT. There is perhaps some new superimposed airspace opacity in this region as was not present on the x-ray performed in January 2023 and appears new from the powder worker tnt radiograph from the CT performed in June 2023, this can be correlated with any clinical evidence of pneumonia or assessed with a chest CT is warranted. The left lung is clear. No evidence of a pneumothorax. Cardiomediastinal silhouette: Postsurgical changes from median sternotomy. Cardiac size is at the upper limits of normal. Calcified atherosclerotic disease is present at the aortic arch. Bones and soft tissues: Unremarkable. IMPRESSION: 1. Unchanged small right pleural effusion, [...] No additional acute finding in the chest. Transcribe Date/Time: Sep 24 2023 4:35P Dictated by: SARA JACKSON MD This examination was interpreted and the report reviewed and electronically signed by: SARA JACKSON MD on Sep 24 2023 4:41PM EST Thank you for allowing us to participate in the care of your patient. Should there be any questions regarding this interpretation, please call [phone]. If you are unable to reach us at the number above, please feel free to contact [facility] at [phone]. [id number] Procedure Note Radiology, Radiologist, - 09/25/2023 * * *Final Report* * * DATE OF EXAM: Sep 24 2023 1:03PM [id number] - XR CHEST 2V FRONTAL/LAT / PROCEDURE REASON: 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, right (HCC) * * * * Physician Interpretation * * * * RESULT: EXAMINATION: CHEST RADIOGRAPH (2 VIEW FRONTAL and LATERAL) CLINICAL HISTORY: 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, right (HCC) MQ: XC2_6 EXAM DATE/TIME: 09/24/2023 1:03 PM COMPARISON: Previous chest x-ray dated 02/06/2023. Chest CT dated 07/12/2023 RESULT: Lines, tubes, and devices: A right-sided chest port terminates in the lower SVC. Lungs and pleura: A small right pleural effusion is noted, similar to the previous CT performed in June 2023. Mixed interstitial and airspace opacity is present in the right mid and lower lung, compatible with the chronic subpleural interstitial opacity seen on the previous chest CT. There is perhaps some new superimposed airspace opacity in this region as was not present on the x-ray performed in January 2023 and appears new from the powder worker tnt radiograph from the CT performed in June 2023, this can be correlated with any clinical evidence of pneumonia or assessed with a chest CT is warranted. The left lung is clear. No evidence of a pneumothorax. Cardiomediastinal silhouette: Postsurgical changes from median sternotomy. Cardiac size is at the upper limits of normal. Calcified atherosclerotic disease is present at the aortic arch. Bones and soft tissues: Unremarkable. IMPRESSION: 1. Unchanged small right pleural effusion, [...] No additional acute finding in the chest. Transcribe Date/Time: Sep 24 2023 4:35P Dictated by: SARA JACKSON MD This examination was interpreted and the report reviewed and electronically signed by: SARA JACKSON MD on Sep 24 2023 4:41PM EST Thank you for allowing us to participate in the care of your patient. Should there be any questions regarding this interpretation, please call [phone]. If you are unable to reach us at the number above, please feel free to contact [facility] eRadiology at [phone]. [id number]^[email or web address]^ACN us Generic External Data Provider [facility] Final Result documented in this encounter Visit Diagnoses Not on filedocumented in this encounter Care Teams Instrument Worker Relationship Specialty Start Date End Date Kartik Guzman MD [address] [place] [address] PCP - General Family Medicine 12/28/22 12/16/24 Kartik Guzman MD [address] [place] [address] PCP - Carolynn KEN 02/20/24 Marcellus Valenzuela DO [address] [place] [address] PCP - General Family Medicine 12/17/24 Zo Tavarez LSW [address] [place] [address] Hot Tar Roofer Helper Family Medicine 02/22/23 Marely Seals NP [address] [place] [address] Nurse Practitioner Family Medicine 10/24/23 10/21/24 Kandace Harvey NP [address] [place] [address] Nurse Practitioner Family Medicine 10/24/23 12/16/24 Marcellus Valenzuela DO [address] [place] [address] Referring Physician Family Medicine 05/29/24 documented as of this encounter
--- OUTSIDE RECORDS SUMMARY | 2025-01-18 09:05 | XMS_ITS | Encounter Summary ---
Author Organization [facility] Address [address] [facility] [place] [address] Care Team Providers Care Corporate Vp Advertising & Online Name Role Phone Jayy Guzman MD Primary Care Provider [phone] Zo Tavarez HUMAN RESOURCES HR GENERALIST Unavailable Marely Seals NP Unavailable Kandace Harvey FREIGHT DISPATCHER Unavailable [phone] Jayy Guzman MD Unavailable [phone] Marcellus Valenzuela DO Unavailable [phone] Marcellus Valenzuela DO Primary Care Provider [phone] Encounter Details Date Type Department Care Team (Late st Contact Info) Description 10/29/2023 Abstract [facility] [address] [place] [address] Jayy Guzman MD [address] [place] [address] Social History Tobacco Use Types Packs/Day Years [...] How often do you attend chur or protestant services? Patient declined 04/15/2023 Do you belong to any clubs o r organizations such as mandaen groups, unions, fraternal or athletic groups, or [...] Recorded Patient Health Questionnaire-2 Score 0 01/28/2023 [facility] [place] of Occupat ional Health - Occupational Stress [...] place to sleep or slept in a group home (including now)? No 04/15/2023 Comments No Sex and Gender Information Value Date Recorded Sex Assigned at Not on file Legal Sex Female 6:53 PM EDT Gender Identity Not on file Sexual Orientation Not on file documented as of this encounter Plan of Treatment Upcoming Encounters Date Type Department Care Team (Late st Contact Info) Description 02/23/2025 1:20 PM EDT Office Visit [facility] [address], [facility] [address] [place] [address] Marcellus Valenzuela DO [address] [facility] [address] [place] [address] documented as of this encounter Visit Diagnoses Not on filedocumented in this encounter Care Teams Corporate Vp Advertising & Online Relationship Specialty Start Date End Date Jayy Guzman MD [address] [place] [address] PCP - General Family Medicine 12/28/22 12/16/24 Jayy Guzman MD [address] [place] [address] PCP - Carolynn KEN 02/20/24 Marcellus Valenzuela DO [address] [place] [address] PCP - General Family Medicine 12/17/24 Zo Tavarez LSW [address] [place] [address] Foreign Food Cook Specialty Family Medicine 02/22/23 Marely Seals NP [address] [place] [address] Nurse Practitioner Family Medicine 10/24/23 10/21/24 Kandace Harvey NP [address] [place] [address] Nurse Practitioner Family Medicine 10/24/23 12/16/24 Marcellus Valenzuela DO [address] [place] [address] Referring Physician Family Medicine 05/29/24 documented as of this encounter
--- OUTSIDE RECORDS SUMMARY | 2025-01-18 09:05 | XMS_ITS | Encounter Summary ---
Author Organization [facility] Address [address] [place] [address] Care Team Providers Care Orthopedic Physician Name Role Phone Jayy Guzman MD Primary Care Provider [phone] Jie Johnson APRN.DISPATCHER CHIEF OIL Unavailable [phone] Jayy Parker MD Unavailable [phone] Roxana Wagner RN Unavailable [phone] Source Comments In the event this information is protected by the Federal Confidentiality of Alcohol and Drug AbusePatient Records regulations: The Federal rules restrict any use of the information to criminally investigate or prosecute any alcohol or drug abuse patient.[facility] Encounter Details Date Type Department Care Team (Latest Contact Info) Description 06/01/2024 H&P External-NonCCF Provider, External, PASarahC Do not enter address information under generic External Provider. Social History Tobacco Use Types Packs/Day Years [...] is lower risk 6 12/13/2022 Data from: https://www.neighborhoodatlas.medicine.[facility].edu/. Last address used for calculation [address] [place] [address] [address] 12/13/2022 Comments No Sex and [...] on filedocumented in this encounter Care Teams Orthopedic Physician Relationship Specialty Start Date End Date Jayy Guzman MD [address] [place] [address] PCP - General 09/01/09 Jie Johnson, SECURITY MANAGEMENT SPECIALIST.DISPATCHER CHIEF OIL [address] [place] [address] Nurse Practitioner Hematology/Oncology 01/16/23 Jayy Parker MD [address] [facility] [place] [address] Physician Hematology/Oncology 01/16/23 Roxana Wagner, RN [address] [place] [address] Specialty Yard Foreman Hematology/Oncology 01/16/23 documented as of this encounter
--- OUTSIDE RECORDS SUMMARY | 2025-01-18 09:05 | XMS_ITS | Encounter Summary ---
Author Organization [facility] Address [address] [place] [address] Care Team Providers Care Sock Lining Examiner Name Role Phone Jayy Guzman MD Primary Care Provider [phone] Zo Tavarez VETERANS ADVISER Unavailable Marely Seals NP Unavailable Kandace Harvey DEMOLITION SPECIALIST Unavailable [phone] Jayy Guzman MD Unavailable [phone] Marcellus Valenzuela DO Unavailable [phone] Marcellus Valenzuela DO Primary Care Provider [phone] Encounter Details Date Type Department Care Team (Late st Contact Info) Description 05/28/2024 Abstract [facility] [address] [place] [address] Jayy Guzman MD [address] [place] [address] Social History Tobacco Use Types Packs/Day Years [...] How often do you attend chur or anabaptism services? Patient declined 04/15/2023 Do you belong to any clubs o r organizations such as cheondoism groups, unions, fraternal or athletic groups, or [...] Recorded Patient Health Questionnaire-2 Score 4 03/12/2024 [facility] [place] of Occupat ional Health - Occupational Stress [...] place to sleep or slept in a mcfp (including now)? No 04/15/2023 Comments No Sex and Gender Information Value Date Recorded Sex Assigned at Not on file Legal Sex Female 6:53 PM EDT Gender Identity Not on file Sexual Orientation Not on file documented as of this encounter Plan of Treatment Upcoming Encounters Date Type Department Care Team (Late st Contact Info) Description 02/23/2025 1:20 PM EDT Office Visit [facility] [address], [address] [place] [address] Marcellus Valenzuela DO [address] [place], [place] [address] documented as of this encounter Visit Diagnoses Not on filedocumented in this encounter Additional Health Concerns Assessment Noted Time PHQ-9 Depression Total Score: 10 024 10:00 AM EDT documented as of this encounter Care Teams Sock Lining Examiner Relationship Specialty Start Date End Date Jayy Guzman MD [address] [place] [address] PCP - General Family Medicine 12/28/22 12/16/24 Jayy Guzman MD [address] [place] [address] PCP - Carolynn KEN 02/20/24 Marcellus Valenzuela DO [address] [place] [address] PCP - General Family Medicine 12/17/24 Zo Tavarez LSW [address] [place] [address] Transport Company Manager Family Medicine 02/22/23 Marely Seals NP [address] [place] [address] Nurse Practitioner Family Medicine 10/24/23 10/21/24 Kandace Harvey NP [address] [place] [address] Nurse Practitioner Family Medicine 10/24/23 12/16/24 Marcellus Valenzuela DO [address] [place] [address] Referring Physician Family Medicine 05/29/24 documented as of this encounter
--- OUTSIDE RECORDS SUMMARY | 2025-01-18 09:05 | XMS_ITS | Encounter Summary ---
Author Organization [facility] Address [address] [facility] [place] [place] [address] Care Team Providers Care Laundry Laborer Name Role Phone Jayy Guzman MD Primary Care Provider [phone] Zo Tavarez NIGHT WAREHOUSE MANAGER Unavailable Marely Seals NP Unavailable Kandace Harvey METER RECORD CLERK Unavailable [phone] Jayy Guzman MD Unavailable [phone] Marcellus Valenzuela DO Unavailable [phone] Marcellus Valenzuela DO Primary Care Provider [phone] Encounter Details Date Type Department Care Team (Late st Contact Info) Description 03/12/2024 Abstract [facility] [address] [place] [address] Jayy Guzman MD [address] [place] [address] Social History Tobacco Use Types Packs/Day Years [...] How often do you attend chur or pentecostalism services? Patient declined 04/15/2023 Do you belong to any clubs o r organizations such as restorationist groups, unions, fraternal or athletic groups, or [...] Recorded Patient Health Questionnaire-2 Score 4 03/12/2024 [facility] [place] of Occupat ional Health - Occupational Stress [...] place to sleep or slept in a care home (including now)? No 04/15/2023 Comments No Sex and Gender Information Value Date Recorded Sex Assigned at Not on file Legal Sex Female 6:53 PM EDT Gender Identity Not on file Sexual Orientation Not on file documented as of this encounter Functional Status * Over the past 2 weeks, how often have you been bothered by any of the following problems? Question Answer Date of Assessment Author Little interest or pleasure in doing things More than half the days 03/12/2024 10:00 AM Laura Daly MA Feeling down, depressed, or hopeless More than half the days 03/12/2024 10:00 AM Laura Daly MA Patient Health Questionnaire-2 Score 4 03/12/2024 10:00 AM Delvis Daly MA * Question Answer Date of Assessment Author Trouble falling or staying asleep, or sleeping too much More than half the days 03/12/2024 10:00 AM EDT Laura Klein MA Feeling tired or having little energy More than half the days 03/12/2024 10:00 AM Laura Daly MA Poor appetite or overeating Not at all 03/12/2024 10:00 AM Laura Daly MA Feeling bad about yourself - or that you are a failure or have let yourself or your family down Several days 03/12/2024 10:00 AM EDLaura Templeton MA Trouble concentrating on things, such as reading the newspaper or watching television Several days 03/12/2024 10:00 AM Laura Daly MA Moving or speaking so slowly that other people could have noticed? Or the opposite - being so fidgety or restless that you have been moving around a lot more than usual. Not at all 03/12/2024 10:00 AM Laura Daly MA Thoughts that you would be better off or hurting yourself in some way Not at all 03/12/2024 10:00 AM MANFREDT Laura Klein MA Patient Health Questionnaire-9 Score 10 03/12/2024 10:00 AM MANFREDT Laura Klein MA documented as of this encounter Plan of Treatment Upcoming Encounters Date Type Department Care Team (Late st Contact Info) Description 02/23/2025 1:20 PM EDT Office Visit [facility] [address] [facility], [address] [address] Marcellus Valenzuela DO [address] [facility] [address] [place] [address] documented as of this encounter Visit Diagnoses Not on filedocumented in this encounter Additional Health Concerns Assessment Noted Time PHQ-9 Depression Total Score: 10 024 10:00 AM EDT documented as of this encounter Care Teams Laundry Laborer Relationship Specialty Start Date End Date Jayy Guzman MD [address] [place] [address] PCP - General Family Medicine 12/28/22 12/16/24 Jayy Guzman MD [address] [place] [address] PCP - Carolynn KEN 02/20/24 Marcellus Valenzuela DO [address] [place] [address] PCP - General Family Medicine 12/17/24 Zo Tavarez LSW [address] [place] [address] Digital Media Associate Family Medicine 02/22/23 Marely Seals NP [address] [place] [address] Nurse Practitioner Family Medicine 10/24/23 10/21/24 Kandace Harvey NP [address] [place] [address] Nurse Practitioner Family Medicine 10/24/23 12/16/24 Marcellus Valenzuela DO [address] [place] [address] Referring Physician Family Medicine 05/29/24 documented as of this encounter
--- OUTSIDE RECORDS SUMMARY | 2025-01-18 09:05 | XMS_ITS | Encounter Summary ---
Author Organization [facility] Address [address] [place] [address] Care Team Providers Care Field Services Analyst Name Role Phone Jayy Guzman MD Primary Care Provider [phone] Jie Johnson APRN.RADIOACTIVE WASTE DISPOSAL DISPATCHER Unavailable [phone] Jayy Parker MD Unavailable [phone] Roaxna Wagner RN Unavailable [phone] Source Comments In the event this information is protected by the Federal Confidentiality of Alcohol and Drug AbusePatient Records regulations: The Federal rules restrict any use of the information to criminally investigate or prosecute any alcohol or drug abuse patient.[facility] Encounter Details Date Type Department Care Team (Latest Contact Info) Description 02/05/2023 Patient Msg [facility] [address] [place] [address] Provider, [facility] Radiology Pre Procedure Instructions Social History Tobacco Use Types Packs/Day Years Used Date Smoking Tobacco: Every Day Cigarettes 1 40 Passive Smoke Exposure: Current Smokeless Tobacco: Never Alcohol Use Standard Drinks/Week Comments Yes 0 (1 standard drink = 0.6 oz pur e alcohol) rare PHQ-2 Answer Date Recorded PHQ-2 score 2 02/04/2023 Area Deprivation Index Answer Date Lasha rded National Score (1-100), lower number is lower ri sk 78 12/13/2022 State Score (1-10), lower number is lower risk 6 12/13/2022 Data from: https://www.neighborhoodatlas.medicine.[facility].edu/. Last address used for calculation [address] [place] [address] [address] 12/13/2022 Comments No Sex and [...] on filedocumented in this encounter Care Teams Field Services Analyst Relationship Specialty Start Date End Date Jayy Guzman MD [address] [place] [address] PCP - General 09/01/09 Jie Johnson, WASHER ENGINEER.RADIOACTIVE WASTE DISPOSAL DISPATCHER [address] [place] [address] Nurse Practitioner Hematology/Oncology 01/16/23 Jayy Parker MD [address] [facility] [place] [address] Physician Hematology/Oncology 01/16/23 Roxana Wagner, RN [address] [place] [address] Specialty Hotel Valet Attendant Hematology/Oncology 01/16/23 documented as of this encounter
--- OUTSIDE RECORDS SUMMARY | 2025-01-18 09:05 | XMS_ITS | Encounter Summary ---
Author Organization [facility] Address [address] [facility] [place] [address] Care Team Providers Care Professor Of Economics Name Role Phone Jayy Guzman MD Primary Care Provider [phone] Zo Tavaerz HYPERTRICHOLOGIST Unavailable Marely Seals NP Unavailable Kandace Harvey GAS FITTER HELPER Unavailable [phone] Jayy Guzman MD Unavailable [phone] Marcellus Valenzuela DO Unavailable [phone] Marcellus Valenzuela DO Primary Care Provider [phone] Encounter Details Date Type Department Care Team (Late st Contact Info) Description 05/14/2024 Abstract [facility] [address] [place] [address] Jayy Guzman MD [address] [place] [address] Social History Tobacco Use Types Packs/Day Years [...] How often do you attend chur or mormonism services? Patient declined 04/15/2023 Do you belong [...] Recorded Patient Health Questionnaire-2 Score 4 03/12/2024 [facility] [place] of Occupat ional Health - Occupational Stress [...] place to sleep or slept in a detention (including now)? No 04/15/2023 Comments No Sex and Gender Information Value Date Recorded Sex Assigned at Not on file Legal Sex Female 6:53 PM EDT Gender Identity Not on file Sexual Orientation Not on file documented as of this encounter Plan of Treatment Upcoming Encounters Date Type Department Care Team (Late st Contact Info) Description 02/23/2025 1:20 PM EDT Office Visit [facility] [address], [address] [place] [address] Marcellus Valenzuela DO [address] [place], [place] [address] documented as of this encounter Visit Diagnoses Not on filedocumented in this encounter Additional Health Concerns Assessment Noted Time PHQ-9 Depression Total Score: 10 024 10:00 AM EDT documented as of this encounter Care Teams Professor Of Economics Relationship Specialty Start Date End Date Jayy Guzman MD [address] [place] [address] PCP - General Family Medicine 12/28/22 12/16/24 Jayy Guzman MD [address] [place] [address] PCP - Carolynn KEN 02/20/24 Marcellus Valenzuela DO [address] [place] [address] PCP - General Family Medicine 12/17/24 Zo Tavarez LSW [address] [place] [address] Human Resources Compensation Analyst Family Medicine 02/22/23 Marely Seals NP [address] [place] [address] Nurse Practitioner Family Medicine 10/24/23 10/21/24 Kandace Harvey NP [address] [place] [address] Nurse Practitioner Family Medicine 10/24/23 12/16/24 Marcellus Valenzuela DO [address] [place] [address] Referring Physician Family Medicine 05/29/24 documented as of this encounter
--- OUTSIDE RECORDS SUMMARY | 2025-01-18 09:05 | XMS_ITS | Encounter Summary ---
Author Organization [facility] Address [address] [place] [address] Care Team Providers Care B2B Outside Sales Representative Name Role Phone Jayy Guzman MD Primary Care Provider [phone] Zo Tavarez DYNAMITER Unavailable Marely Seals NP Unavailable Kandace Harvey MACHINE SLAT BASKET MAKER Unavailable [phone] Jayy Guzman MD Unavailable [phone] Marcellus Valenzuela DO Unavailable [phone] Marcellus Valenzuela DO Primary Care Provider [phone] Encounter Details Date Type Department Care Team (Late st Contact Info) Description 05/19/2024 Abstract [facility] [address] [place] [address] Jayy Guzman MD [address] [place] [address] Social History Tobacco Use Types Packs/Day Years [...] How often do you attend chur or scientologist services? Patient declined 04/15/2023 Do you belong to any clubs o r organizations such as baptist groups, unions, fraternal or athletic groups, or [...] Recorded Patient Health Questionnaire-2 Score 4 03/12/2024 [facility] [place] of Occupat ional Health - Occupational Stress [...] place to sleep or slept in a usp (including now)? No 04/15/2023 Comments No Sex and Gender Information Value Date Recorded Sex Assigned at Not on file Legal Sex Female 6:53 PM EDT Gender Identity Not on file Sexual Orientation Not on file documented as of this encounter Plan of Treatment Upcoming Encounters Date Type Department Care Team (Late st Contact Info) Description 02/23/2025 1:20 PM EDT Office Visit [facility] [address], [address] [place] [address] Marcellus Valenzuela DO [address] [place], [place] [address] documented as of this encounter Visit Diagnoses Not on filedocumented in this encounter Additional Health Concerns Assessment Noted Time PHQ-9 Depression Total Score: 10 024 10:00 AM EDT documented as of this encounter Care Teams B2B Outside Sales Representative Relationship Specialty Start Date End Date Jayy Guzman MD [address] [place] [address] PCP - General Family Medicine 12/28/22 12/16/24 Jayy Guzman MD [address] [place] [address] PCP - Carolynn KEN 02/20/24 Marcellus Valenzuela DO [address] [place] [address] PCP - General Family Medicine 12/17/24 Zo Tavarez LSW [address] [place] [address] Hairspring Fabrication Supervisor Family Medicine 02/22/23 Marely Seals NP [address] [place] [address] Nurse Practitioner Family Medicine 10/24/23 10/21/24 Kandace Harvey NP [address] [place] [address] Nurse Practitioner Family Medicine 10/24/23 12/16/24 Marcellus Valenzuela DO [address] [place] [address] Referring Physician Family Medicine 05/29/24 documented as of this encounter
--- OUTSIDE RECORDS SUMMARY | 2025-01-18 09:05 | XMS_ITS | Encounter Summary ---
Author Organization [facility] Address [address] [facility] [place] [address] Care Team Providers Care Patient Relations Coordinator Name Role Phone Jayy Guzman MD Primary Care Provider [phone] Zo Tavarez SECOND CRUSHER Unavailable Marely Seals NP Unavailable Kandace Harvey MISSILE INSPECTOR Unavailable [phone] Jayy Guzman MD Unavailable [phone] Marcellus Valenzuela DO Unavailable [phone] Marcellus Valenzuela DO Primary Care Provider [phone] Encounter Details Date Type Department Care Team (Late st Contact Info) Description 09/25/2023 Abstract [facility] [address] [place] [address] Jayy Guzman MD [address] [place] [address] Social History Tobacco Use Types Packs/Day Years [...] How often do you attend chur or zoroastrianism services? Patient declined 04/15/2023 Do you belong to any clubs o r organizations such as judaism groups, unions, fraternal or athletic groups, or [...] Recorded Patient Health Questionnaire-2 Score 0 01/28/2023 [facility] [place] of Occupat ional Health - Occupational Stress [...] place to sleep or slept in a prison (including now)? No 04/15/2023 Comments No Sex [...] HOSPITAL FAMILY [facility]ICINE [address], [facility] [address] [place] [address] Marcellus Valenzuela DO [address] [facility] [address] [place] [address] documented as of this encounter Visit Diagnoses Not on filedocumented in this encounter Care Teams Patient Relations Coordinator Relationship Specialty Start Date End Date Jayy Guzman MD [address] [place] [address] PCP - General Family Medicine 12/28/22 12/16/24 Jayy Guzman MD [address] [place] [address] PCP - Carolynn KEN 02/20/24 Marcellus Valenzuela DO [address] [place] [address] PCP - General Family Medicine 12/17/24 Zo Tavarez LSW [address] [place] [address] Machinery Erector Family Medicine 02/22/23 Marely Seals NP [address] [place] [address] Nurse Practitioner Family Medicine 10/24/23 10/21/24 Kandace Harvey NP [address] [place] [address] Nurse Practitioner Family Medicine 10/24/23 12/16/24 Marcellus Valenzuela DO [address] [place] [address] Referring Physician Family Medicine 05/29/24 documented as of this encounter
--- OUTSIDE RECORDS SUMMARY | 2025-01-18 09:05 | XMS_ITS | Encounter Summary ---
Author Organization [facility] Address [address] [place] [id number] Care Team Providers Care Wrapper Layer Name Role Phone Jayy Guzman MD Primary Care Provider [phone] Jie Johnson APRN.BUS PERSON DISHWASHER Unavailable [phone] Jayy Parker MD Unavailable [phone] Roxana Wagner RN Unavailable [phone] Source Comments In the event this information is protected by the Federal Confidentiality of Alcohol and Drug AbusePatient Records regulations: The Federal rules restrict any use of the information to criminally investigate or prosecute any alcohol or drug abuse patient.[facility] Encounter Details Date Type Department Care Team (Latest Contact Info) Description 05/26/2024 H&P External-NonCCF Provider, External, PASarahC Do not [...] is lower risk 6 12/13/2022 Data from: https://www.neighborhoodatlas.medicine.[facility].edu/. Last address used for calculation [address] [place] [address] [address] 12/13/2022 Comments No Sex and [...] on filedocumented in this encounter Care Teams Wrapper Layer Relationship Specialty Start Date End Date Jayy Guzman MD [address] [place] [address] PCP - General 09/01/09 Jie Johnson, CORE MANAGER.BUS PERSON DISHWASHER [address] [place] [address] Nurse Practitioner Hematology/Oncology 01/16/23 Jayy Parker MD [address] [facility] [place] [address] Physician Hematology/Oncology 01/16/23 Roxana Wagner, RN [address] [place] [address] Specialty Microfilm Mounter Hematology/Oncology 01/16/23 documented as of this encounter
--- OUTSIDE RECORDS SUMMARY | 2025-01-18 09:05 | XMS_ITS | Encounter Summary ---
Author Organization [facility] Address [address] [place] [address] Care Team Providers Care Chorus Master Name Role Phone Jayy Guzman MD Primary Care Provider [phone] Zo Tavarez INSPECTOR PAPER PRODUCTS Unavailable Marely Seals NP Unavailable Kandace Harvey PIPE LINER Unavailable [phone] Jayy Guzman MD Unavailable [phone] Marcellus Valenzuela DO Unavailable [phone] Marcellus Valenzuela DO Primary Care Provider [phone] Encounter Details Date Type Department Care Team (Late st Contact Info) Description 01/01/2024 Abstract [facility] [address] [place] [address] Jayy Guzman MD [address] [place] [address] Social History Tobacco Use Types Packs/Day Years [...] How often do you attend chur or latter day services? Patient declined 04/15/2023 Do you belong to any clubs o r organizations such as restorationism groups, unions, fraternal or athletic groups, or [...] Recorded Patient Health Questionnaire-2 Score 0 01/28/2023 [facility] [place] of Occupat ional Health - Occupational Stress [...] place to sleep or slept in a correction (including now)? No 04/15/2023 Comments No Sex and Gender Information Value Date Recorded Sex Assigned at Not on file Legal Sex Female 6:53 PM EDT Gender Identity Not on file Sexual Orientation Not on file documented as of this encounter Plan of Treatment Upcoming Encounters Date Type Department Care Team (Late st Contact Info) Description 02/23/2025 1:20 PM EDT Office Visit [facility] [address], [facility] [address] [place] [address] Marcellus Valenzuela DO [address] [facility] [address] [place] [address] documented as of this encounter Visit Diagnoses Not on filedocumented in this encounter Care Teams Chorus Master Relationship Specialty Start Date End Date Jayy Guzman MD [address] [place] [address] PCP - General Family Medicine 12/28/22 12/16/24 Jayy Guzman MD [address] [place] [address] PCP - Carolynn KEN 02/20/24 Marcellus Valenzuela DO [address] [place] [address] PCP - General Family Medicine 12/17/24 Zo Tavarez LSW [address] [place] [address] Head Sulfide Operator Family Medicine 02/22/23 Marely Seals NP [address] [place] [address] Nurse Practitioner Family Medicine 10/24/23 10/21/24 Kandace Harvey NP [address] [place] [address] Nurse Practitioner Family Medicine 10/24/23 12/16/24 Marcellus Valenzuela DO [address] [place] [address] Referring Physician Family Medicine 05/29/24 documented as of this encounter
--- OUTSIDE RECORDS SUMMARY | 2025-01-18 09:05 | XMS_ITS | Encounter Summary ---
Author Organization [facility] Address [address] [facility] [place] [address] Care Team Providers Care Accountant Auditor Name Role Phone Jayy Guzman MD Primary Care Provider [phone] Zo Tavarez INTERNATIONAL TRAVEL CONSULTANT Unavailable Marely Seals NP Unavailable Kandace Harvey CHILDREN'S SERVICE SUPERVISOR Unavailable [phone] Jayy Guzman MD Unavailable [phone] Marcellus Valenzuela DO Unavailable [phone] Marcellus Valenzuela DO Primary Care Provider [phone] Encounter Details Date Type Department Care Team (Late st Contact Info) Description 05/12/2024 Abstract [facility] [address] [place] [address] Jayy Guzman MD [address] [place] [address] Social History Tobacco Use Types Packs/Day Years [...] How often do you attend chur or church services? Patient declined 04/15/2023 Do you belong to any clubs o r organizations such as advent groups, unions, fraternal or athletic groups, or [...] Recorded Patient Health Questionnaire-2 Score 4 03/12/2024 [facility] [place] of Occupat ional Health - Occupational Stress [...] place to sleep or slept in a half-way (including now)? No 04/15/2023 Comments No Sex and Gender Information Value Date Recorded Sex Assigned at Not on file Legal Sex Female 6:53 PM EDT Gender Identity Not on file Sexual Orientation Not on file documented as of this encounter Plan of Treatment Upcoming Encounters Date Type Department Care Team (Late st Contact Info) Description 02/23/2025 1:20 PM EDT Office Visit [facility] [address], [address] [place] [address] Marcellus Valenzuela DO [address] [place], [place] [address] documented as of this encounter Visit Diagnoses Not on filedocumented in this encounter Additional Health Concerns Assessment Noted Time PHQ-9 Depression Total Score: 10 024 10:00 AM EDT documented as of this encounter Care Teams Accountant Auditor Relationship Specialty Start Date End Date Jayy Guzman MD [address] [place] [address] PCP - General Family Medicine 12/28/22 12/16/24 Jayy Guzman MD [address] [place] [address] PCP - Carolynn KEN 02/20/24 Marcellus Valenzuela DO [address] [place] [address] PCP - General Family Medicine 12/17/24 Zo Tavarez LSW [address] [place] [address] Entertainment Agent Family Medicine 02/22/23 Marely Seals NP [address] [place] [address] Nurse Practitioner Family Medicine 10/24/23 10/21/24 Kandace Harvey NP [address] [place] [address] Nurse Practitioner Family Medicine 10/24/23 12/16/24 Marcellus Valenzuela DO [address] [place] [address] Referring Physician Family Medicine 05/29/24 documented as of this encounter
--- OUTSIDE RECORDS SUMMARY | 2025-01-18 09:05 | XMS_ITS | Encounter Summary ---
Author Organization [facility] Address [address] [place] [address] Care Team Providers Care Set O Type Operator Name Role Phone Jayy Guzman MD Primary Care Provider [phone] Zo Tavarez INSIDE SALES DIRECTOR Unavailable Marely Seals NP Unavailable Kandace Harvey ELECTRICAL ENGINEERING MANAGER Unavailable [phone] Jayy Guzman MD Unavailable [phone] Marcellus Valenzuela DO Unavailable [phone] Marcellus Valenzuela DO Primary Care Provider [phone] Encounter Details Date Type Department Care Team (Late st Contact Info) Description 05/26/2024 Abstract [facility] [address] [place] [address] Jayy Guzman MD [address] [place] [address] Social History Tobacco Use Types Packs/Day Years [...] How often do you attend chur or advent services? Patient declined 04/15/2023 Do you belong to any clubs o r organizations such as presybeterian groups, unions, fraternal or athletic groups, or [...] Score 4 03/12/2024 [facility] [place] of Occupat ional Health - Occupational Stress [...] [facility] [address], [address] [place] [address] Marcellus Valenzuela DO [address] [place], [place] [address] documented as of this encounter Visit Diagnoses Not on filedocumented in this encounter Additional Health Concerns Assessment Noted Time PHQ-9 Depression Total Score: 10 024 10:00 AM EDT documented as of this encounter Care Teams Set O Type Operator Relationship Specialty Start Date End Date Jayy Guzman MD [address] [place] [address] PCP - General Family Medicine 12/28/22 12/16/24 Jayy Guzman MD [address] [place] [address] PCP - Carolynn KEN 02/20/24 Marcellus Valenzuela DO [address] [place] [address] PCP - General Family Medicine 12/17/24 Zo Tavarez LSW [address] [place] [address] Diesel Powerplant Mechanic Family Medicine 02/22/23 Marely Seals NP [address] [place] [address] Nurse Practitioner Family Medicine 10/24/23 10/21/24 Kandace Harvey NP [address] [place] [address] Nurse Practitioner Family Medicine 10/24/23 12/16/24 Marcellus Valenzuela DO [address] [place] [address] Referring Physician Family Medicine 05/29/24 documented as of this encounter
--- OUTSIDE RECORDS SUMMARY | 2025-01-18 09:05 | XMS_ITS | Encounter Summary ---
Author Organization [facility] Address [address] [place] [address] Care Team Providers Care Drying Unit Felting Machine Operator Name Role Phone Jayy Guzman MD Primary Care Provider [phone] Zo Tavarez DIE MAKER BENCH STAMPING Unavailable Marely Seals NP Unavailable Kandace Harvey DISPLAY CARVER Unavailable [phone] Jayy Guzman MD Unavailable [phone] Marcellus Valenzuela DO Unavailable [phone] Marcellus Valenzuela DO Primary Care Provider [phone] Encounter Details Date Type Department Care Team (Late st Contact Info) Description 03/17/2024 Clinisync Result Encounter [facility] External Department Unsolicited [...] How often do you attend chur or spiritism services? Patient declined 04/15/2023 Do you belong to any clubs o r organizations such as congregation groups, unions, fraternal or athletic groups, or [...] Recorded Patient Health Questionnaire-2 Score 4 03/12/2024 [facility] of Occupat ional Health - Occupational [...] place to sleep or slept in a mcc (including now)? No 04/15/2023 Comments No Sex and Gender Information Value Date Recorded Sex Assigned at Not on file Legal Sex Female 6:53 PM EDT Gender Identity Not on file Sexual Orientation Not on file documented as of this encounter Plan of Treatment Upcoming Encounters Date Type Department Care Team (Late st Contact Info) Description 02/23/2025 1:20 PM EDT Office Visit [facility] [address] [facility] [address] [place] [address] Marcellus Valenzuela DO [address] [facility] [address] [place] [address] documented as of this encounter Procedures Procedure Name Priority Date/Time Associated Diagnosis Comments NM PET/CT SKULL-THIGH SUBQ 03/17/2024 1:42 PM EDT documented in this encounter Results * NM PET/CT SKULL-THIGH SUBQ (03/17/2024 1:42 PM EDT) Anatomical Region Laterality Modality Other 03/17/2024 1:42 PM EDT Narrative 03/17/2024 3:16 PM EDT * * *Final Report* * [...] * Uptake Time: 50 minutes * Radiopharmaceutical: I16-Ifodvlmzwtciqjjzvb (FDG) COMPARISON: 12/10/2022 CORRELATION: CT chest 09/30/2023 [...] any questions regarding this interpretation, please call [phone]. If you are unable to reach us at the number above, please feel free to contact [facility] at [phone]. [id number]^[email or web address]^ACN Procedure Note Radiology, Radiologist, - 03/17/2024 * * *Final Report* * * DATE [...] * Uptake Time: 50 minutes * Radiopharmaceutical: I36-Ljagpnconrramtgkob (FDG) COMPARISON: 12/10/2022 CORRELATION: CT chest 09/30/2023 RESULT: REFERENCES: FDG uptake is used as a surrogate marker for glucose metabolism. All reported standardized uptake values represent maximum SUV (SUVmax) per body weight, unless otherwise specified. SUV reference values, as follows: * Blood Pool (Descending Aorta): SUVmax 3.3 previously 3.5 * Background Liver: SUVmax 3.7 previously 3.6; SUVmean 2.7 previously2.6 Localizer Images: No additional findings. HEAD AND [...] any questions regarding this interpretation, please call [phone]. If you are unable to reach us at the number above, please feel free to contact [facility] at [phone]. [id number]^[email or web address]^SI^ACN us Generic External Data Provider [facility] Final Result documented in this encounter Visit Diagnoses Not on filedocumented in this encounter Additional Health Concerns Assessment Noted Time PHQ-9 Depression Total Score: 10 024 10:00 AM EDT documented as of this encounter Care Teams Drying Unit Felting Machine Operator Relationship Specialty Start Date End Date Jayy Guzman MD [address] [place] [address] PCP - General Family Medicine 12/28/22 12/16/24 Jayy Guzman MD [address] [place] [address] PCP - Carolynn KEN 02/20/24 Marcellus Valenzuela DO [address] [place] [address] PCP - General Family Medicine 12/17/24 Zo Tavarez LSW [address] [place] [address] Sintering Press Operator Family Medicine 02/22/23 Marely Seals NP [address] [place] [address] Nurse Practitioner Family Medicine 10/24/23 10/21/24 Kandace Harvey NP [address] [place] [address] Nurse Practitioner Family Medicine 10/24/23 12/16/24 Marcellus Valenzuela DO [address] [place] [address] Referring Physician Family Medicine 05/29/24 documented as of this encounter
--- OUTSIDE RECORDS SUMMARY | 2025-01-18 09:05 | XMS_ITS | Encounter Summary ---
Author Organization [facility] Address [address] [facility] [place] [address] Care Team Providers Care Environment Friendly Landscape Designer Name Role Phone Jayy Guzman MD Primary Care Provider [phone] Zo Tavarez CORE JAVA ENGINEER Unavailable Marely Seals NP Unavailable Kandace Harvey CALL PERSON Unavailable [phone] Jayy Guzman MD Unavailable [phone] Marcellus Valenzuela DO Unavailable [phone] Marcellus Valenzuela DO Primary Care Provider [phone] Encounter Details Date Type Department Care Team (Late st Contact Info) Description 05/19/2024 Abstract [facility] [address] [place] [address] Jayy Guzman MD [address] [place] [address] Social History Tobacco Use Types Packs/Day Years [...] How often do you attend chur or alevism services? Patient declined 04/15/2023 Do you belong to any clubs o r organizations such as jain groups, unions, fraternal or athletic groups, or [...] Recorded Patient Health Questionnaire-2 Score 4 03/12/2024 [facility] [place] of Occupat ional Health - Occupational Stress [...] No 04/15/2023 Housing Stability Vital Sign Answer Adnrew e Recorded In the last 12 months, [...] MEDICINE [address], [address] [place] [address] Marcellus Valenuzela DO [address] [place], [place] [address] documented as of this encounter Visit Diagnoses Not on filedocumented in this encounter Additional Health Concerns Assessment Noted Time PHQ-9 Depression Total Score: 10 024 10:00 AM EDT documented as of this encounter Care Teams Environment Friendly Landscape Designer Relationship Specialty Start Date End Date Jayy Guzman MD [address] [place] [address] PCP - General Family Medicine 12/28/22 12/16/24 Jayy Guzman MD [address] [place] [address] PCP - Carolynn KEN 02/20/24 Marcellus Valenzuela DO [address] [place] [address] PCP - General Family Medicine 12/17/24 Zo Tavarez LSW [address] [place] [address] Flight Control Manager Family Medicine 02/22/23 Marely Seals NP [address] [place] [address] Nurse Practitioner Family Medicine 10/24/23 10/21/24 Kandace Harvey NP [address] [place] [address] Nurse Practitioner Family Medicine 10/24/23 12/16/24 Marcellus Valenzuela DO [address] [place] [address] Referring Physician Family Medicine 05/29/24 documented as of this encounter
--- OUTSIDE RECORDS SUMMARY | 2025-01-18 09:05 | XMS_ITS | Encounter Summary ---
Author Organization [facility] Address [address] [facility] [place] [address] Care Team Providers Care Polyethylene Bag Machine Operator Name Role Phone Jayy Guzman MD Primary Care Provider [phone] Zo Tavarez CLIENT SERVICE CONSULTANT Unavailable Marely Seals NP Unavailable Kandace Harvey STRATEGIC MANAGER Unavailable [phone] Jayy Guzman MD Unavailable [phone] Marcellus Valenzuela DO Unavailable [phone] Marcellus Valenzuela DO Primary Care Provider [phone] Encounter Details Date Type Department Care Team (Late st Contact Info) Description 11/21/2023 Abstract [facility] [address] [place] [address] Jayy Guzman MD [address] [place] [address] Social History Tobacco Use Types Packs/Day Years [...] How often do you attend chur or jew services? Patient declined 04/15/2023 Do you belong to any clubs o r organizations such as confucianism groups, unions, fraternal or athletic groups, or [...] Recorded Patient Health Questionnaire-2 Score 0 01/28/2023 [facility] [place] of Occupat ional Health - Occupational Stress [...] place to sleep or slept in a senior care (including now)? No 04/15/2023 Comments No Sex and Gender Information Value Date Recorded Sex Assigned at Not on file Legal Sex Female 6:53 PM EDT Gender Identity Not on file Sexual Orientation Not on file documented as of this encounter Plan of Treatment Upcoming Encounters Date Type Department Care Team (Late st Contact Info) Description 02/23/2025 1:20 PM EDT Office Visit [facility] [address], [email or web address] [address] [place] [address] Marclelus Valenzuela DO [address] [facility] [address] [place] [address] documented as of this encounter Visit Diagnoses Not on filedocumented in this encounter Care Teams Polyethylene Bag Machine Operator Relationship Specialty Start Date End Date Jayy Guzman MD [address] [place] [address] PCP - General Family Medicine 12/28/22 12/16/24 Jayy Guzman MD [address] [place] [address] PCP - Carolynn KEN 02/20/24 Marcellus Valenzuela DO [address] [place] [address] PCP - General Family Medicine 12/17/24 Zo Tavarez LSW [address] [place] [address] Fiscal Assistant Family Medicine 02/22/23 Marely Seals NP [address] [place] [address] Nurse Practitioner Family Medicine 10/24/23 10/21/24 Kandace Harvey NP [address] [place] [address] Nurse Practitioner Family Medicine 10/24/23 12/16/24 Marcellus Valenzuela DO [address] [place] [address] Referring Physician Family Medicine 05/29/24 documented as of this encounter
--- OUTSIDE RECORDS SUMMARY | 2025-01-18 09:05 | XMS_ITS | Encounter Summary ---
Author Organization [facility] Address [address] [facility] [place] [address] Care Team Providers Care Cone Machine Operator Name Role Phone Jayy Guzman MD Primary Care Provider [phone] Zo Tavarez BILINGUAL INTERPRETER Unavailable Marely Seals NP Unavailable Kandace Harvey PROPULSION GENERATOR REPAIRER Unavailable [phone] Jayy Guzman MD Unavailable [phone] Marcellus Valenzuela DO Unavailable [phone] Marcellus Valenzuela DO Primary Care Provider [phone] Encounter Details Date Type Department Care Team (Late st Contact Info) Description 05/12/2024 Abstract [facility] [address] [place] [address] Jayy Guzman MD [address] [place] [address] Social History Tobacco Use Types Packs/Day Years [...] any clubs o r organizations such as zoroastrian groups, unions, fraternal or athletic groups, or [...] Recorded Patient Health Questionnaire-2 Score 4 03/12/2024 [facility] [place] of Occupat ional Health - Occupational Stress [...] 02/23/2025 1:20 PM EDT Office Visit [facility] [address], [address] [place] [address] Marcellus Valenzuela DO [address] [place], [place] [address] documented as of this encounter Visit Diagnoses Not on filedocumented in this encounter Additional Health Concerns Assessment Noted Time PHQ-9 Depression Total Score: 10 024 10:00 AM EDT documented as of this encounter Care Teams Cone Machine Operator Relationship Specialty Start Date End Date Jayy Guzman MD [address] [place] [address] PCP - General Family Medicine 12/28/22 12/16/24 Jayy Guzman MD [address] [place] [address] PCP - Carolynn KEN 02/20/24 Marcellus Valenzuela DO [address] [place] [address] PCP - General Family Medicine 12/17/24 Zo Tavarez LSW [address] [place] [address] Diamond Picker Family Medicine 02/22/23 Marely Seals NP [address] [place] [address] Nurse Practitioner Family Medicine 10/24/23 10/21/24 Kandace Harvey NP [address] [place] [address] Nurse Practitioner Family Medicine 10/24/23 12/16/24 Marcellus Valenzuela DO [address] [place] [address] Referring Physician Family Medicine 05/29/24 documented as of this encounter
--- OUTSIDE RECORDS SUMMARY | 2025-01-18 09:05 | XMS_ITS | Encounter Summary ---
Author Organization [facility] Address [address] [facility] [place] [address] Care Team Providers Care Associate Professor Of Biblical Studies Name Role Phone Jayy Guzman MD Primary Care Provider [phone] Zo Tavarez BEEHIVE KILN CHARCOAL BURNER Unavailable Marely Seals NP Unavailable Kandace Harvey DEPUTY BUILDING GUARD Unavailable [phone] Jayy Guzman MD Unavailable [phone] Marcellus Valenzuela DO Unavailable [phone] Marcellus Valenzuela DO Primary Care Provider [phone] Encounter Details Date Type Department Care Team (Late st Contact Info) Description 05/26/2024 Abstract [facility] [address] [place] [address] Jayy Guzman MD [address] [place] [address] Social History Tobacco Use Types Packs/Day Years [...] How often do you attend chur or mandaeism services? Patient declined 04/15/2023 Do you belong [...] Recorded Patient Health Questionnaire-2 Score 4 03/12/2024 [facility] [place] of Occupat ional Health - Occupational Stress [...] MEDICINE [address] [place] [address] Marcellus Valenzuela DO [address] [place], [place] [address] documented as of this encounter Visit Diagnoses Not on filedocumented in this encounter Additional Health Concerns Assessment Noted Time PHQ-9 Depression Total Score: 10 024 10:00 AM EDT documented as of this encounter Care Teams Associate Professor Of Biblical Studies Relationship Specialty Start Date End Date Jayy Guzman MD [address] [place] [address] PCP - General Family Medicine 12/28/22 12/16/24 Jayy Guzman MD [address] [place] [address] PCP - Carolynn KEN 02/20/24 Marcellus Valenzuela DO [address] [place] [address] PCP - General Family Medicine 12/17/24 Zo Tavarez LSW [address] [place] [address] Community Health Navigator Family Medicine 02/22/23 Marely Seals NP [address] [place] [address] Nurse Practitioner Family Medicine 10/24/23 10/21/24 Kandace Harvey NP [address] [place] [address] Nurse Practitioner Family Medicine 10/24/23 12/16/24 Marcellus Valenzuela DO [address] [place] [address] Referring Physician Family Medicine 05/29/24 documented as of this encounter
--- OUTSIDE RECORDS SUMMARY | 2025-01-18 09:05 | XMS_ITS | Encounter Summary ---
Author Organization [facility] Address [address] [facility] [place] [address] Care Team Providers Care Size Maker Name Role Phone Jayy Guzman MD Primary Care Provider [phone] Zo Tavarez TENONER OPERATOR Unavailable Marely Seals NP Unavailable Kandace Harvey AUTOMATIC BANDSAW TENDER Unavailable [phone] Jayy Guzman MD Unavailable [phone] Marcellus Valenzuela DO Unavailable [phone] Marcellus Valenzuela DO Primary Care Provider [phone] Encounter Details Date Type Department Care Team (Late st Contact Info) Description 12/10/2023 Abstract [facility] [address] [place] [address] Jayy Guzman MD [address] [place] [address] Social History Tobacco Use Types Packs/Day Years [...] How often do you attend chur or mandaen services? Patient declined 04/15/2023 Do you belong to any clubs o r organizations such as hindu groups, unions, fraternal or athletic groups, or [...] Recorded Patient Health Questionnaire-2 Score 0 01/28/2023 [facility] of Occupat ional Health - Occupational Stress [...] place to sleep or slept in a longterm (including now)? No 04/15/2023 Comments No Sex [...] CENTER FAMILY [facility] [address], [facility] [address] [place] [address] Marcellus Valenzuela DO [address] [email or web address] [address] [place] [address] documented as of this encounter Visit Diagnoses Not on filedocumented in this encounter Care Teams Size Maker Relationship Specialty Start Date End Date Jayy Guzman MD [address] [place] [address] PCP - General Family Medicine 12/28/22 12/16/24 Jayy Guzman MD [address] [place] [address] PCP - Carolynn KEN 02/20/24 Marcellus Valenzuela DO [address] [place] [address] PCP - General Family Medicine 12/17/24 Zo Tavarez LSW [address] [place] [address] Cost Controller Family Medicine 02/22/23 Marely Seals NP [address] [place] [address] Nurse Practitioner Family Medicine 10/24/23 10/21/24 Kandace Harvey NP [address] [place] [address] Nurse Practitioner Family Medicine 10/24/23 12/16/24 Marcellus Valenzuela DO [address] [place] [address] Referring Physician Family Medicine 05/29/24 documented as of this encounter
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
--- OUTSIDE RECORDS SUMMARY | 2025-01-18 09:05 | XMS_ITS | Encounter Summary ---
Author Organization [facility] Address [address] [facility] [place] [address] Care Team Providers Care Drying Machine Operator Name Role Phone Jayy Guzman MD Primary Care Provider [phone] Zo Tavarez BIOLOGICAL SCIENCES PROFESSOR Unavailable Marely Seals NP Unavailable Kandace Harvey STRIPPING SHOVEL OILER Unavailable [phone] Jayy Guzman MD Unavailable [phone] Marcellus Valenzuela DO Unavailable [phone] Marcellus Valenzuela DO Primary Care Provider [phone] Encounter Details Date Type Department Care Team (Late st Contact Info) Description 09/04/2023 Abstract [facility] [address] [place] [address] Jayy Guzman MD [address] [place] [address] Social History Tobacco Use Types Packs/Day Years Used Date Smoking Tobacco: Every Day Cigarettes Smokeless Tobacco: Current Snuff Alcohol Use Standard [...] declined 04/15/2023 How often do you attend [facility] or scientology services? Patient declined 04/15/2023 Do [...] Recorded Patient Health Questionnaire-2 Score 0 01/28/2023 [facility] [place] of Occupat ional Health - Occupational Stress [...] place to sleep or slept in a residential (including now)? No 04/15/2023 Comments No Sex [...] PM EDT Office Visit [facility] [address] [facility] [address] [place] [address] Marcellus Valenzuela DO [address] [facility] [address] [place] [address] documented as of this encounter Visit Diagnoses Not on filedocumented in this encounter Care Teams Drying Machine Operator Relationship Specialty Start Date End Date Jayy Guzman MD [address] [place] [address] PCP - General Family Medicine 12/28/22 12/16/24 Jayy Guzman MD [address] [place] [address] PCP - Carolynn KEN 02/20/24 Marcellus Valenzuela DO [address] [place] [address] PCP - General Family Medicine 12/17/24 Zo Tavarez LSW [address] [place] [address] Director Of Bands Family Medicine 02/22/23 Marely Seals NP [address] [place] [address] Nurse Practitioner Family Medicine 10/24/23 10/21/24 Kandace Harvey NP [address] [place] [address] Nurse Practitioner Family Medicine 10/24/23 12/16/24 Marcellus Valenzuela DO [address] [place] [address] Referring Physician Family Medicine 05/29/24 documented as of this encounter
--- OUTSIDE RECORDS SUMMARY | 2025-01-18 09:05 | XMS_ITS | Encounter Summary ---
Author Organization [facility] Address [address] [facility] [place] [address] Care Team Providers Care Glue Mounter Operator Name Role Phone Jayy Guzman MD Primary Care Provider [phone] Zo Tavarez SKILL TRAINING PROGRAM COORDINATOR Unavailable Marely Seals NP Unavailable Kandace Harvey MEDICAL LIAISON Unavailable [phone] Jayy Guzman MD Unavailable [phone] Marcellus Valenzuela DO Unavailable [phone] Marcellus Valenzuela DO Primary Care Provider [phone] Encounter Details Date Type Department Care Team (Late st Contact Info) Description 05/07/2024 Abstract [facility] [address] [place] [address] Jayy Guzman MD [address] [place] [address] Social History Tobacco Use Types Packs/Day Years [...] any clubs o r organizations such as hoahaoism groups, unions, fraternal or athletic groups, or [...] Recorded Patient Health Questionnaire-2 Score 4 03/12/2024 [facility] of Occupat ional Health - Occupational Stress [...] 02/23/2025 1:20 PM EDT Office Visit [facility] [address], [address] [place] [address] Marcellus Valenzuela DO [address] [place], [place] [address] documented as of this encounter Visit Diagnoses Not on filedocumented in this encounter Additional Health Concerns Assessment Noted Time PHQ-9 Depression Total Score: 10 024 10:00 AM EDT documented as of this encounter Care Teams Glue Mounter Operator Relationship Specialty Start Date End Date Jayy Guzman MD [address] [place] [address] PCP - General Family Medicine 12/28/22 12/16/24 Jayy Guzman MD [address] [place] [address] PCP - Carolynn KEN 02/20/24 Marcellus Valenzuela DO [address] [place] [address] PCP - General Family Medicine 12/17/24 Zo Tavarez LSW [address] [place] [address] Woolen Mill Utility Worker Family Medicine 02/22/23 Marely Seals NP [address] [place] [address] Nurse Practitioner Family Medicine 10/24/23 10/21/24 Kandace Harvey NP [address] [place] [address] Nurse Practitioner Family Medicine 10/24/23 12/16/24 Marcellus Valenzuela DO [address] [place] [address] Referring Physician Family Medicine 05/29/24 documented as of this encounter
--- OUTSIDE RECORDS SUMMARY | 2025-01-18 09:06 | XMS_ITS | Encounter Summary ---
Author Organization [facility] Address [address] [facility] [place] [address] Care Team Providers Care Wind Commissioning Technician Name Role Phone Jayy Guzman MD Primary Care Provider [phone] Zo Tavarez FREEZER TUNNEL OPERATOR Unavailable Marely Seals NP Unavailable Kandace Harvey LIGHTING DESIGNER Unavailable [phone] Jayy Guzman MD Unavailable [phone] Marcellus Valenzuela DO Unavailable [phone] Marcellus Valenzuela DO Primary Care Provider [phone] Encounter Details Date Type Department Care Team (Late st Contact Info) Description 06/17/2024 Abstract [facility] [address] [place] [address] Jayy Guzman MD [address] [place] [address] Social History Tobacco Use Types Packs/Day Years [...] How often do you attend chur or taoism services? Patient declined 04/15/2023 Do you belong to any clubs o r organizations such as yazdanism groups, unions, fraternal or athletic groups, or school groups? Patient declined 04/15/2023 How often do you attend meet ings of the clubs or organizations you belong to? Patient declined 04/15/2023 Are you , , di vorced, , never , or living with a partner? 04/15/2023 AUDIT-C Answer Date Recorded Q1: How often do you have a drink containing alcohol? Never 06/04/2024 Q2: How many drinks containi ng alcohol do you have on a typical day when you are drinking? Patient does not drink Q3: How often do you have si x or more drinks on one occasion? Never 06/04/2024 Overall Financial Resource Strain (CARDIA) Answe r Date Recorded How hard is it for you to pa y for the very basics like food, housing, medical care, and heating? Not hard at all 04/15/2023 PHQ-2 Answer Date Recorded Patient Health Questionnaire-2 Score 0 06/04/2024 [facility] [place] of Occupat ional Health - Occupational Stress [...] place to sleep or slept in a retirement (including now)? No 04/15/2023 Comments No Sex [...] MEDICINE [address], [address] [place] [address] Marcellus Valenzuela DO [address] [place], [place] [address] documented as of this encounter Visit Diagnoses Not on filedocumented in this encounter Additional Health Concerns Assessment Noted Time PHQ-9 Depression Total Score: 10 024 10:00 AM EDT documented as of this encounter Care Teams Wind Commissioning Technician Relationship Specialty Start Date End Date Jayy Guzman MD [address] [place] [address] PCP - General Family Medicine 12/28/22 12/16/24 Jayy Guzman MD [address] [place] [address] PCP - Carolynn KEN 02/20/24 Marcellus Valenzuela DO [address] [place] [address] PCP - General Family Medicine 12/17/24 Zo Tavarez LSW [address] [place] [address] Debt Counselor Family Medicine 02/22/23 Marely Seals NP [address] [place] [address] Nurse Practitioner Family Medicine 10/24/23 10/21/24 Kandace Harvey NP [address] [place] [address] Nurse Practitioner Family Medicine 10/24/23 12/16/24 Marcellus Valenzuela DO [address] [place] [address] Referring Physician Family Medicine 05/29/24 documented as of this encounter
--- OUTSIDE RECORDS SUMMARY | 2025-01-18 09:06 | XMS_ITS | Encounter Summary ---
Author Organization [facility] Address [address] [facility] [address] [place] [address] Care Team Providers Care Legal Researcher Name Role Phone Jayy Guzman MD Primary Care Provider [phone] Zo Tavarez HEALTHCARE FINANCIAL ANALYST Unavailable Marely Seals NP Unavailable Kandace Harvey INTEGRATED CIRCUIT FABRICATOR Unavailable [phone] Jayy Guzman MD Unavailable [phone] Marcellus Valenzuela DO Unavailable [phone] Marcellus Valenzuela DO Primary Care Provider [phone] Encounter Details Date Type Department Care Team (Late st Contact Info) Description 07/02/2024 Abstract [facility] [address] [place] [address] Jayy Guzman MD [address] [place] [address] Social History Tobacco Use Types Packs/Day Years [...] How often do you attend chur or presybeterian services? Patient declined 04/15/2023 Do you belong [...] Recorded Patient Health Questionnaire-2 Score 0 06/04/2024 [facility] of Occupat ional Health - Occupational Stress [...] place to sleep or slept in a halfway (including now)? No 04/15/2023 Comments No Sex [...] MEDICINE [address] [place] [address] Marcellus Valenzuela DO [address] [place], [place] [address] documented as of this encounter Visit Diagnoses Not on filedocumented in this encounter Additional Health Concerns Assessment Noted Time PHQ-9 Depression Total Score: 10 024 10:00 AM EDT documented as of this encounter Care Teams Legal Researcher Relationship Specialty Start Date End Date Jayy Guzman MD [address] [place] [address] PCP - General Family Medicine 12/28/22 12/16/24 Jayy Guzman MD [address] [place] [address] PCP - Carolynn KEN 02/20/24 Marcellus Valenzuela DO [address] [place] [address] PCP - General Family Medicine 12/17/24 Zo Tavarez LSW [address] [place] [address] Clinical Documentation Improvement Specialist Family Medicine 02/22/23 Marely Seals NP [address] [place] [address] Nurse Practitioner Family Medicine 10/24/23 10/21/24 Kandace Harvey NP [address] [place] [address] Nurse Practitioner Family Medicine 10/24/23 12/16/24 Marcellus Valenzuela DO [address] [place] [address] Referring Physician Family Medicine 05/29/24 documented as of this encounter
--- OUTSIDE RECORDS SUMMARY | 2025-01-18 09:06 | XMS_ITS | Encounter Summary ---
Author Organization [facility] Address [address] [place] [address] Care Team Providers Care Library Sales Consultant Name Role Phone Jayy Guzman MD Primary Care Provider [phone] Zo Tavarez COMBINATION TECHNICIAN Unavailable Marely Seals NP Unavailable Kandace Harvey MANAGER TALENT MANAGEMENT Unavailable [phone] Jayy Guzman MD Unavailable [phone] Marcellus Valenzuela DO Unavailable [phone] Marcellus Valenzuela DO Primary Care Provider [phone] Encounter Details Date Type Department Care Team (Late st Contact Info) Description 05/14/2024 Abstract [facility] [address] [place] [address] Jayy Guzman MD [address] [place] [address] Social History Tobacco Use Types Packs/Day Years [...] any clubs o r organizations such as uatsdin groups, unions, fraternal or athletic groups, or [...] Recorded Patient Health Questionnaire-2 Score 4 03/12/2024 [facility] [place] of Occupat ional Health - Occupational Stress [...] place to sleep or slept in a nursing home (including now)? No 04/15/2023 Comments No [...] MEDICINE [address] [place] [address] Marcellus Valenzuela DO [address] [place], [place] [address] documented as of this encounter Visit Diagnoses Not on filedocumented in this encounter Additional Health Concerns Assessment Noted Time PHQ-9 Depression Total Score: 10 024 10:00 AM EDT documented as of this encounter Care Teams Library Sales Consultant Relationship Specialty Start Date End Date Jayy Guzman MD [address] [place] [address] PCP - General Family Medicine 12/28/22 12/16/24 Jayy Guzman MD [address] [place] [address] PCP - Carolynn KEN 02/20/24 Marcellus Valenzuela DO [address] [place] [address] PCP - General Family Medicine 12/17/24 Zo Tavarez LSW [address] [place] [address] Inside Outside Sales Representative Family Medicine 02/22/23 Marely Seals NP [address] [place] [address] Nurse Practitioner Family Medicine 10/24/23 10/21/24 Kandace Harvey NP [address] [place] [address] Nurse Practitioner Family Medicine 10/24/23 12/16/24 Marcellus Valenzuela DO [address] [place] [address] Referring Physician Family Medicine 05/29/24 documented as of this encounter
--- OUTSIDE RECORDS SUMMARY | 2025-01-18 09:06 | XMS_ITS | Encounter Summary ---
Author Organization [facility] Address [address] [facility] [place] [address] Care Team Providers Care Property Claim Rep Name Role Phone Jayy Guzman MD Primary Care Provider [phone] Zo Tavarez CHERRY DIPPER Unavailable Marely Seals NP Unavailable Kandace Harvey BEAUTY COUNSELOR Unavailable [phone] Jayy Guzman MD Unavailable [phone] Marcellus Valenzuela DO Unavailable [phone] Marcellus Valenzuela DO Primary Care Provider [phone] Encounter Details Date Type Department Care Team (Late st Contact Info) Description 06/09/2024 Abstract [facility] [address] [place] [address] Jayy Guzman MD [address] [place] [address] Social History Tobacco Use Types Packs/Day Years [...] How often do you attend chur or islam services? Patient declined 04/15/2023 Do you belong to any clubs o r organizations such as pentecostalism groups, unions, fraternal or athletic groups, or [...] Recorded Patient Health Questionnaire-2 Score 0 06/04/2024 [facility] [place] of Occupat ional Health - Occupational Stress [...] place to sleep or slept in a fpc (including now)? No 04/15/2023 Comments No Sex and Gender Information Value Date Recorded Sex Assigned at Not on file Legal Sex Female 6:53 PM EDT Gender Identity Not on file Sexual Orientation Not on file documented as of this encounter Plan of Treatment Upcoming Encounters Date Type Department Care Team (Late st Contact Info) Description 02/23/2025 1:20 PM EDT Office Visit [facility] [address] [place] [address] Marcellus Valenzuela DO [address] [place], [place] [address] documented as of this encounter Visit Diagnoses Not on filedocumented in this encounter Additional Health Concerns Assessment Noted Time PHQ-9 Depression Total Score: 10 024 10:00 AM EDT documented as of this encounter Care Teams Property Claim Rep Relationship Specialty Start Date End Date Jayy Guzman MD [address] [place] [address] PCP - General Family Medicine 12/28/22 12/16/24 Jayy Guzman MD [address] [place] [address] PCP - Carolynn KEN 02/20/24 Marcellus Valenzuela DO [address] [place] [address] PCP - General Family Medicine 12/17/24 Zo Tavarez LSW [address] [place] [address] Foot Gatherer Family Medicine 02/22/23 Marely Seals NP [address] [place] [address] Nurse Practitioner Family Medicine 10/24/23 10/21/24 Kandace Harvey NP [address] [place] [address] Nurse Practitioner Family Medicine 10/24/23 12/16/24 Marcellus Valenzuela DO [address] [place] [address] Referring Physician Family Medicine 05/29/24 documented as of this encounter
--- OUTSIDE RECORDS SUMMARY | 2025-01-18 09:06 | XMS_ITS | Encounter Summary ---
Author Organization [facility] Address [address] [facility] [place] [address] Care Team Providers Care Senior Bi Developer Name Role Phone Jayy Guzman MD Primary Care Provider [phone] Zo Tavarez CLIENT SERVICE ASSOCIATE Unavailable Kandace Harvey AIR SEALING TECHNICIAN Unavailable Jayy Guzman MD Unavailable [phone] Marcellus Valenzuela DO Unavailable [phone] Marcellus Valenzuela DO Primary Care Provider [phone] Encounter Details Date Type Department Care Team (Late st Contact Info) Description 11/03/2024 Abstract [facility] [address] [place] [address] Marcellus Valenzuela DO [address] [address] [place] [address] Social History Tobacco Use Types Packs/Day Years [...] any clubs o r organizations such as lutheran groups, unions, fraternal or athletic groups, or school groups? Patient declined 04/15/2023 How often do you attend meet ings of the clubs or organizations you belong to? Patient declined 04/15/2023 Are you , , di vorced, , never , or living with a partner? 04/15/2023 AUDIT-C Answer Date Recorded Q1: How often do you have a drink containing alcohol? Never 10/26/2024 Q2: How many drinks containi ng alcohol do you have on a typical day when you are drinking? Patient does not drink Q3: How often do you have si x or more drinks on one occasion? Never 10/26/2024 Overall Financial Resource Strain (CARDIA) Answe r Date Recorded How hard is it for you to pa y for the very basics like food, housing, medical care, and heating? Not hard at all 04/15/2023 PHQ-2 Answer Date Recorded Patient Health Questionnaire-2 Score 0 10/26/2024 [facility] of Occupat ional Health - Occupational Stress [...] Description 02/23/2025 1:20 PM EDT [facility] [address] [place] [address] Marcellus Valenzuela DO [address] [facility] [address] [place] [address] documented as of this encounter Visit Diagnoses Not on filedocumented in this encounter Additional Health Concerns Assessment Noted Time PHQ-9 Depression Total Score: 10 024 10:00 AM EDT documented as of this encounter Care Teams Senior Bi Developer Relationship Specialty Start Date End Date Jayy Guzman MD [address] [place] [address] PCP - General Family Medicine 12/28/22 12/16/24 Jayy Guzman MD [address] [place] [address] PCP - Carolynn AK 02/20/24 Marcellus Valenzuela DO [address] [place] [address] PCP - General Family Medicine 12/17/24 Zo Tavarez LSW [address] [place] [address] [facility] Medicine 02/22/23 Kandace Harvey NP [address] [place] [address] Nurse Practitioner Family Medicine 10/24/23 12/16/24 Marcellus Valenzuela DO [address] [place] [address] Referring Physician Family Medicine 05/29/24 documented as of this encounter
--- OUTSIDE RECORDS SUMMARY | 2025-01-18 09:06 | XMS_ITS ---
Author Organization [facility] Address [address] [facility] [place] [address] Care Team Providers Care Continuity Reader Name Role Phone Zo Tavarez Unavailable Jayy Guzman MD Unavailable [phone] Marcellus Valenzuela DO Unavailable [phone] Marcellus Valenzuela DO Primary Care Provider [phone] Chronic Care Management (CCM) Status:Enrolled (Active) Start date:02/22/2023 Enrollment date:02/22/2023 Enrollment reason:Identified as high-risk Overview Addresses patients in need of care management services. 02/22/23, 3:00 PM - PEDRO Ramires- Patient gives verbal consent to be enrolled in CCM Program. Case Team Name Relationship Phone Zo VASQUEZ(Responsible Staff) Grocery Store Associate [phone] Continued Care and Services Coordination
--- OUTSIDE RECORDS SUMMARY | 2025-01-18 09:06 | XMS_ITS | Clinical Summary ---
Author Organization [facility] Address [address] [place] [address] Phone Care Team Providers Care Automatic Teller Machine Servicer Name Role Phone Jayy Guzman MD Primary Care Provider Social History Tobacco Use Types Packs/Day Years Used Date Smoking Tobacco: Never Assessed Comments Unknown Sex and Gender Information Value Date Recorded Sex Assigned at Not on file Legal Sex Female 10:58 PM EST Gender Identity Not on file Sexual Orientation Not on file Last Filed Vital Signs Vital Sign Reading Time Taken Comments Blood Pressure 214/83 08/04/2021 11:05 AM EST Pulse 62 08/04/2021 11:05 AM EST Temperature 36.3 C (97.3 F) 08/04/2021 11:05 AM EST Respiratory Rate 18 08/04/2021 11:05 AM EST Oxygen Saturation 97% 08/04/2021 11:05 AM EST Inhaled Oxygen Concentration - - Weight 79 kg (174 lb 1 oz) 08/04/2021 11:[address] Height 162.6 cm (5' 4 ) 08/04/2021 11:05 AM EST Body Mass Index 29.88 08/04/2021 11:05 AM EST Plan of Treatment Health Maintenance Due Date Last Done Comments Bone Density Scan 1952 CT Colonography 1952 Colonoscopy 1952 Colorectal Cancer Screening 1952 FIT-DNA (Cologuard) 1952 FIT 1952 Lipid Panel 1952 Medicare Annual Wellness Vis it (AWV) 1952 Sigmoidoscopy 1952 Hepatitis C Screening 1970 Pneumococcal Vaccine (1 of 2 - PCV) 11/06/1971 DTaP/Tdap/Td Vaccines (1 - Tdap) 1974 Mammogram 1992 Zoster Vaccines (1 of 2) 2002 RSV High Risk: (Elderly (60+ ) or Population) (1 - Risk 60-74 years 1-dose series) 2012 COVID-19 Vaccine (1 - 2023-2 5 season) 2024 Influenza Vaccine (Season Ended) 2025 HIB Vaccines Aged Out No longer eligi ble based on patient's age to complete this topic HPV Vaccines (No Doses Required) Completed Hepatitis A Vaccines Aged Out No long er eligible based on patient's age to complete this topic Hepatitis B Vaccines Aged Out No long er eligible based on patient's age to complete this topic IPV Vaccines Aged Out No longer eligi ble based on patient's age to complete this topic Meningococcal Vaccine Aged Out No jaspreet ankur eligible based on patient's age to complete this topic Rotavirus Vaccines Aged Out No longer eligible based on patient's age to complete this topic Insurance ANTHEM MEDICARE ADVANTAGE ANTHEM MEDICARE ADVANTAGE Advance Directives For more information, please contact: [phone] (Available ) Documents on File Type Date Recorded Patient Tool Room Attendant Expl anation Healthcare Power of Atty 07/21/2021 Living Will 07/21/2021 Care Teams Automatic Teller Machine Servicer Relationship Specialty Start Date End Date Jayy Guzman MD [address] [place] [id number] PCP - General 03/01/15
--- OUTSIDE RECORDS SUMMARY | 2025-01-18 09:06 | XMS_ITS | Encounter Summary ---
Author Organization [facility] Address [address] [facility] [place] [address] Care Team Providers Care Superintendent Commissary Name Role Phone Jayy Guzman MD Primary Care Provider [phone] Zo Tavarez TRASH MAN Unavailable Kandace Harvey PLAN NURSE Unavailable [phone] Jayy Guzman MD Unavailable [phone] Marcellus Valenzuela DO Unavailable [phone] Marcellus Valenzuela DO Primary Care Provider [phone] Encounter Details Date Type Department Care Team (Late st Contact Info) Description 11/14/2024 Results Follow-Up [facility] [address] [place] [id number] Marcellus Valenzuela DO [address] [address] [place] [address] Social History Tobacco Use Types Packs/Day Years [...] How often do you attend chur or druze services? Patient declined 04/15/2023 Do you belong to any clubs o r organizations such as moravian groups, unions, fraternal or athletic groups, or school groups? Patient declined 04/15/2023 How often do you attend meet ings of the clubs or organizations you belong to? Patient declined 04/15/2023 Are you , , di vorced, , never , or living with a partner? 04/15/2023 AUDIT-C Answer Date Recorded Q1: How often do you have a drink containing alcohol? Never 11/09/2024 Q2: How many drinks containi ng alcohol do you have on a typical day when you are drinking? Patient does not drink Q3: How often do you have si x or more drinks on one occasion? Never 11/09/2024 Overall Financial Resource Strain (CARDIA) Answe r Date Recorded How hard is it for you to pa y for the very basics like food, housing, medical care, and heating? Not hard at all 04/15/2023 PHQ-2 Answer Date Recorded Patient Health Questionnaire-2 Score 2 11/09/2024 [facility] [place] of Occupat ional Health - Occupational Stress [...] 02/23/2025 1:20 PM EDT Office [facility] [address] [place] [address] Marcellus Valenzuela DO [address] [place] [address] documented as of this encounter Visit Diagnoses Not on filedocumented in this encounter Additional Health Concerns Assessment Noted Time PHQ-9 Depression Total Score: 10 024 10:00 AM EDT documented as of this encounter Care Teams Superintendent Commissary Relationship Specialty Start Date End Date Jayy Guzman MD [address] [place] [address] PCP - General Family Medicine 12/28/22 12/16/24 Jayy Guzman MD [address] [place] [address] PCP - Carolynn KEN 02/20/24 Marcellus Valenzuela DO [address] [place] [address] PCP - General Family Medicine 12/17/24 Zo Tavarez LSW [address] [place] [address] Plant Protection Superintendent Family Medicine 02/22/23 Kandace Harvey NP [address] [place] [address] Nurse Practitioner Family Medicine 10/24/23 12/16/24 Marcellus Valenzuela DO [address] [place] [address] Referring Physician Family Medicine 05/29/24 documented as of this encounter
--- OUTSIDE RECORDS SUMMARY | 2025-01-18 09:06 | XMS_ITS | Encounter Summary ---
Author Organization [facility] Address [address] [facility] [place] [address] Care Team Providers Care Ceo & Co Founder Name Role Phone Jayy Guzman MD Primary Care Provider [phone] Zo Tavarez TIMING INSPECTOR Unavailable Marely Seals NP Unavailable Kandace Harvey SCRAP PILER Unavailable [phone] Jayy Guzman MD Unavailable [phone] Marcellus Valenzuela DO Unavailable [phone] Marcellus Valenzuela DO Primary Care Provider [phone] Encounter Details Date Type Department Care Team (Late st Contact Info) Description 06/21/2024 Abstract [facility] [address] [place] [address] Jayy Guzman MD [address] [place] [place] [address] Social History Tobacco Use Types Packs/Day Years [...] Recorded Patient Health Questionnaire-2 Score 0 06/04/2024 [facility] of Occupat ional Health - Occupational Stress [...] place to sleep or slept in a custodial (including now)? No 04/15/2023 Comments No Sex [...] MEDICINE [address], [address] [place] [address] Marcellus Valenzuela DO [address] [place], [place] [address] documented as of this encounter Visit Diagnoses Not on filedocumented in this encounter Additional Health Concerns Assessment Noted Time PHQ-9 Depression Total Score: 10 024 10:00 AM EDT documented as of this encounter Care Teams Ceo & Co Founder Relationship Specialty Start Date End Date Jayy Guzman MD [address] [place] [address] PCP - General Family Medicine 12/28/22 12/16/24 Jayy Guzman MD [address] [place] [address] PCP - Carolynn KEN 02/20/24 Marcellus Valenzuela DO [address] [place] [address] PCP - General Family Medicine 12/17/24 Zo Tavarez LSW [address] [place] [address] Integration Analyst Family Medicine 02/22/23 Marely Seals NP [address] [place] [address] Nurse Practitioner Family Medicine 10/24/23 10/21/24 Kandace Harvey NP [address] [place] [place] [address] Nurse Practitioner Family Medicine 10/24/23 12/16/24 Marcellus Valenzuela DO [address] [place] [address] Referring Physician Family Medicine 05/29/24 documented as of this encounter
--- OUTSIDE RECORDS SUMMARY | 2025-01-18 09:06 | XMS_ITS | Encounter Summary ---
Author Organization [facility] Address [address] [facility] [address] Care Team Providers Care Stores Clerk Name Role Phone Jayy Guzman MD Primary Care Provider [phone] Zo Tavarez CERTIFIED PERSONAL FINANCE COUNSELOR Unavailable Marely Seals NP Unavailable Kandace Harvey CLINICAL REGISTERED NURSE Unavailable [phone] Jayy Guzman MD Unavailable [phone] Marcellus Valenzuela DO Unavailable [phone] Marcellus Valenzuela DO Primary Care Provider [phone] Encounter Details Date Type Department Care Team (Late st Contact Info) Description 05/05/2024 Abstract [facility] [address] [place] [address] Jayy Guzman MD [address] [place] [address] Social History Tobacco Use Types Packs/Day Years [...] How often do you attend chur or moravian services? Patient declined 04/15/2023 Do you belong [...] Recorded Patient Health Questionnaire-2 Score 4 03/12/2024 [facility] [place] of Occupat ional Health - Occupational Stress [...] MEDICINE [address] [place] [address] Marcellus Valenzuela DO [address] [place], [place] [address] documented as of this encounter Visit Diagnoses Not on filedocumented in this encounter Additional Health Concerns Assessment Noted Time PHQ-9 Depression Total Score: 10 024 10:00 AM EDT documented as of this encounter Care Teams Stores Clerk Relationship Specialty Start Date End Date Jayy Guzman MD [address] [place] [address] PCP - General Family Medicine 12/28/22 12/16/24 Jayy Guzman MD [address] [place] [address] PCP - Carolynn KEN 02/20/24 Marcellus Valenzuela DO [address] [place] [address] PCP - General Family Medicine 12/17/24 Zo Tavarez LSW [address] [place] [address] Coating Machine Feeder Family Medicine 02/22/23 Marely Seals NP [address] [place] [address] Nurse Practitioner Family Medicine 10/24/23 10/21/24 Kandace Harvey NP [address] [place] [address] Nurse Practitioner Family Medicine 10/24/23 12/16/24 Marcellus Valenzuela DO [address] [place] [address] Referring Physician Family Medicine 05/29/24 documented as of this encounter
--- OUTSIDE RECORDS SUMMARY | 2025-01-18 09:06 | XMS_ITS | Encounter Summary ---
Author Organization [facility] Address [address] [place] [address] Care Team Providers Care Fur Tinter Name Role Phone Jayy Guzman MD Primary Care Provider [phone] Zo Tavarez SHRIMPER Unavailable Marely Seals NP Unavailable Kandace Harvey MAPLE PRODUCTS SUPERVISOR Unavailable [phone] Jayy Guzman MD Unavailable [phone] Marcellus Valenzuela DO Unavailable [phone] Marcellus Valenzuela DO Primary Care Provider [phone] Encounter Details Date Type Department Care Team (Late st Contact Info) Description 03/25/2024 Abstract [facility] [address] [place] [address] Jayy Guzman MD [address] [place] [address] Social History Tobacco Use Types Packs/Day Years [...] How often do you attend chur or orthodoxy services? Patient declined 04/15/2023 Do you belong [...] Patient Health Questionnaire-2 Score 4 03/12/2024 [facility] [place] of Occupat ional Health - Occupational Stress [...] place to sleep or slept in a chcf (including now)? No 04/15/2023 Comments No Sex [...] MEDICINE [address] [place] [address] Marcellus Valenzuela DO [address] [place], [place] [address] documented as of this encounter Visit Diagnoses Not on filedocumented in this encounter Additional Health Concerns Assessment Noted Time PHQ-9 Depression Total Score: 10 024 10:00 AM EDT documented as of this encounter Care Teams Fur Tinter Relationship Specialty Start Date End Date Jayy Guzman MD [address] [place] [address] PCP - General Family Medicine 12/28/22 12/16/24 Jayy Guzman MD [address] [place] [address] PCP - Carolynn KEN 02/20/24 Marcellus Valenzuela DO [address] [place] [address] PCP - General Family Medicine 12/17/24 Zo Tavarez LSW [address] [place] [address] Fishing Accessories Maker Family Medicine 02/22/23 Marely Seals NP [address] [place] [address] Nurse Practitioner Family Medicine 10/24/23 10/21/24 Kandace Harvey NP [address] [place] [address] Nurse Practitioner Family Medicine 10/24/23 12/16/24 Marcellus Valenzuela DO [address] [place] [address] Referring Physician Family Medicine 05/29/24 documented as of this encounter
--- OUTSIDE RECORDS SUMMARY | 2025-01-18 09:06 | XMS_ITS | Encounter Summary ---
Author Organization [facility] Address [address] [place] [address] Care Team Providers Care Delivery Rn Name Role Phone Jayy Guzman MD Primary Care Provider [phone] Jayy Guzman MD Unavailable [phone] Zo Tavarez EDUCATIONAL ADVISER Unavailable Marely Seals BODY BUILDER APPRENTICE Unavailable Kandace Harvey BODY BUILDER APPRENTICE Unavailable [phone] Jayy Guzman MD Unavailable [phone] Marcellus Valenzuela DO Unavailable [phone] Marcellus Valenzuela DO Primary Care Provider [phone] Encounter Details Date Type Department Care Team (Late Contact Info) Description 10/01/2016 Abstract [facility] [address] [place] [address] Aniya Eaton, [facility] [address] [place] [address] Social History Tobacco Use Types Packs/Day Years Used Date Smoking Tobacco: Never Assessed Comments Unknown Sex and Gender Information Value Date Recorded Sex Assigned at Not on file Legal Sex Female 6:53 PM EDT Gender Identity Not on file Sexual Orientation Not on file documented as of this encounter Plan of Treatment Upcoming Encounters Date Type Department Care Team (Late Contact Info) Description 02/23/2025 1:20 PM EDT Office Visit [facility] [facility] [address] [place] [address] Marcellus Valenzuela DO [address] [facility] [address] [place] [address] documented as of this encounter Visit Diagnoses Not on filedocumented in this encounter Care Teams Delivery Rn Relationship Specialty Start Date End Date Jayy Guzman MD [address] [place] [address] PCP - General Family Medicine 12/28/22 12/16/24 Jayy Guzman MD [address] [place] [address] PCP - Carolynn KEN 01/19/23 06/20/23 Jayy Guzman MD [address] [place] [address] PCP - Carolynn KEN 02/20/24 Marcellus Valenzuela DO [address] [place] [address] PCP - General Family Medicine 12/17/24 Zo Tavarez LSW [address] [place] [address] Special Agent Group Insurance Family Medicine 02/22/23 Marely Seals NP [address] [place] [address] Nurse Practitioner Family Medicine 10/24/23 10/21/24 Kandace Harvey, BODY BUILDER APPRENTICE [address] [place] [address] Nurse Practitioner Family Medicine 10/24/23 12/16/24 Marcellus Valenzuela DO [address] [place] [address] Referring Physician Family Medicine 05/29/24 documented as of this encounter
--- OUTSIDE RECORDS SUMMARY | 2025-01-18 09:06 | XMS_ITS | Encounter Summary ---
Author Organization [facility] Address [address] [place] [address] Care Team Providers Care Fisheries Technical Officer Name Role Phone Zo Tavarez Unavailable Jayy Guzman MD Unavailable [phone] Marcellus Valenzuela DO Unavailable [phone] Marcellus Valenzuela DO Primary Care Provider [phone] Encounter Details Date Type Department Care Team (Late st Contact Info) Description 01/07/2025 Patient Outreach [facility] [address] [place] [address] Zo Tavarez LSW [address] [place] [address] Social History Tobacco Use Types Packs/Day Years [...] How often do you attend chur or judaism services? Patient declined 04/15/2023 Do you belong to any clubs o r organizations such as jainism groups, unions, fraternal or athletic groups, or [...] Date Recorded Patient Health Questionnaire-2 Score 0 12/24/2024 [facility] of Occupat ional Health - Occupational [...] on file documented as of this encounter Progress Notes * PEDRO Ramires - 01/07/2025 11:41 AM EDT Attempted to contact pt x2 for monthly monitor. No answer; LM. <January 07, 2025, 11:42 - PEDRO Ramires> No calls back from pt, closing encounter and will attempt again next month. documented in this encounter Plan of Treatment Upcoming Encounters Date Type Department Care Team (Late st Contact Info) Description 02/23/2025 1:20 PM EDT [facility] [address] [place] [address] Marcellus Valenzuela DO [address] [place], [place] [address] documented as of this encounter Visit Diagnoses Diagnosis Essential (primary) hypertension- Primary Unspecified essential hypertension Hypertensive chronic kidney disease with stage 1 through stage 4 chronic kidney disease, or unspecified chronic kidney disease documented in this encounter Additional Health Concerns Assessment Noted Time PHQ-9 Depression Total Score: 10 024 10:00 AM EDT documented as of this encounter Care Teams Fisheries Technical Officer Relationship Specialty Start Date End Date Jayy Guzman MD [address] [place] [address] PCP - Carolynn KEN 02/20/24 Marcellus Valenzuela DO [address] [place] [address] PCP - General Family Medicine 12/17/24 Zo Tavarez LSW [address] [place] [address] Steam Crane Operator Family Medicine 02/22/23 Marcellus Valenzuela DO [address] [place] [address] Referring Physician Family Medicine 05/29/24 documented as of this encounter
--- OUTSIDE RECORDS SUMMARY | 2025-01-18 09:06 | XMS_ITS | Encounter Summary ---
Author Organization [facility] Address [address] [place] [address] Care Team Providers Care Diesel Powerplant Mechanic Name Role Phone Jayy Guzman MD Primary Care Provider [phone] Zo Tavarez SCALE MANAGER Unavailable Marely Seals NP Unavailable Kandace Harvey BEAM SAW OPERATOR Unavailable [phone] Jayy Guzman MD Unavailable [phone] Marcellus Valenzuela DO Unavailable [phone] Marcellus Vaelnzuela DO Primary Care Provider [phone] Encounter Details Date Type Department Care Team (Late st Contact Info) Description 06/17/2024 Abstract [facility] [address] [place] [address] Jayy Guzman MD [address] [place] [address] Social History Tobacco Use Types Packs/Day Years [...] How often do you attend chur or episcopalian services? Patient declined 04/15/2023 Do you belong to any clubs o r organizations such as tenriism groups, unions, fraternal or athletic groups, or [...] Recorded Patient Health Questionnaire-2 Score 0 06/04/2024 [facility] [place] of Occupat ional Health - Occupational Stress [...] to sleep or slept in a senior living (including now)? No 04/15/2023 Comments No Sex [...] MEDICINE [address], [address] [place] [address] Marcellus Valenzuela DO [address] [place], [place] [address] documented as of this encounter Visit Diagnoses Not on filedocumented in this encounter Additional Health Concerns Assessment Noted Time PHQ-9 Depression Total Score: 10 024 10:00 AM EDT documented as of this encounter Care Teams Diesel Powerplant Mechanic Relationship Specialty Start Date End Date Jayy Guzman MD [address] [place] [address] PCP - General Family Medicine 12/28/22 12/16/24 Jayy Guzman MD [address] [place] [address] PCP - Carolynn KEN 02/20/24 Marcellus Valenzuela DO [address] [place] [address] PCP - General Family Medicine 12/17/24 Zo Tavarez [place]SW [address] [place] [address] Tufting Machine Operator Family Medicine 02/22/23 Marely Seals NP [address] [place] [address] Nurse Practitioner Family Medicine 10/24/23 10/21/24 Kandace Harvey NP [address] [place] [address] Nurse Practitioner Family Medicine 10/24/23 12/16/24 Marcellus Valenzuela DO [address] [place] [address] Referring Physician Family Medicine 05/29/24 documented as of this encounter
--- OUTSIDE RECORDS SUMMARY | 2025-01-18 09:06 | XMS_ITS | Encounter Summary ---
Author Organization [facility] Address [address] [place] [address] Care Team Providers Care Purchasing Administrator Name Role Phone DaysiZo PEDRO Unavailable Jayy Guzman MD Unavailable [phone] Marcellus Valenzuela DO Unavailable [phone] Marcellus Valenzuela DO Primary Care Provider [phone] Encounter Details Date Type Department Care Team (Late st Contact Info) Description 01/07/2025 Abstract [facility] [address] [place] [id number] Marcellus Valenzuela DO [address] [facility] [address] [place] [address] Social History Tobacco Use Types Packs/Day Years [...] Recorded Patient Health Questionnaire-2 Score 0 12/24/2024 [facility] of Occupat ional Health - Occupational Stress [...] place to sleep or slept in a skilled nursing (including now)? No 04/15/2023 Comments No Sex and Gender Information Value Date Recorded Sex Assigned at Not on file Legal Sex Female 6:53 PM EDT Gender Identity Not on file Sexual Orientation Not on file documented as of this encounter Plan of Treatment Upcoming Encounters Date Type Department Care Team (Late st Contact Info) Description 02/23/2025 1:20 PM EDT [facility] [address], [facility] [address] [place] [address] Marcellus Valenzuela DO [address] [place] [address] documented as of this encounter Visit Diagnoses Not on filedocumented in this encounter Additional Health Concerns Assessment Noted Time PHQ-9 Depression Total Score: 10 024 10:00 AM EDT documented as of this encounter Care Teams Purchasing Administrator Relationship Specialty Start Date End Date Jayy Guzman MD [address] [place] [address] PCP - Carolynn KEN 02/20/24 Marcellus Valenzuela DO [address] [place] [address] PCP - General Family Medicine 12/17/24 Zo Tavarez [facility] [address] [place] [address] Senior Architect/Design Manager Family Medicine 02/22/23 Marcellus Valenzuela DO [address] [place] [address] Referring Physician Family Medicine 05/29/24 documented as of this encounter
--- OUTSIDE RECORDS SUMMARY | 2025-01-18 09:06 | XMS_ITS | Encounter Summary ---
Author Organization [facility] Address [address] [place] [address] Care Team Providers Care Pegger Name Role Phone Jayy Guzman MD Primary Care Provider [phone] Zo Tavarez HEALTHCARE ADMINISTRATOR Unavailable Marely Seals NP Unavailable Kandace Harvey REEL REPAIRER Unavailable [phone] Jayy Guzman MD Unavailable [phone] Marcellus Valenzuela DO Unavailable [phone] Marcellus Valenzuela DO Primary Care Provider [phone] Encounter Details Date Type Department Care Team (Late st Contact Info) Description 06/09/2024 Abstract [facility] [address] [place] [address] Jayy Guzman MD [address] [place] [address] Social History Tobacco Use Types Packs/Day Years [...] How often do you attend chur or amish services? Patient declined 04/15/2023 Do you belong [...] Recorded Patient Health Questionnaire-2 Score 0 06/04/2024 [facility] [place] of Occupat ional Health - Occupational Stress [...] MEDICINE [address], [address] [place] [address] Marcellus Valenzuela DO [address] [place], [place] [address] documented as of this encounter Visit Diagnoses Not on filedocumented in this encounter Additional Health Concerns Assessment Noted Time PHQ-9 Depression Total Score: 10 024 10:00 AM EDT documented as of this encounter Care Teams Pegger Relationship Specialty Start Date End Date Jayy Guzman MD [address] [place] [address] PCP - General Family Medicine 12/28/22 12/16/24 Jayy Guzman MD [address] [place] [address] PCP - Carolynn KEN 02/20/24 Marcellus Valenzueal DO [address] [place] [address] PCP - General Family Medicine 12/17/24 Zo Tavarez LSW [address] [place] [address] Gear Lapping Machine Operator Family Medicine 02/22/23 Mareyl Seals NP [address] [place] [address] Nurse Practitioner Family Medicine 10/24/23 10/21/24 Kandace Harvey NP [address] [place] [address] Nurse Practitioner Family Medicine 10/24/23 12/16/24 Marcellus Valenzuela DO [address] [place] [address] Referring Physician Family Medicine 05/29/24 documented as of this encounter
--- OUTSIDE RECORDS SUMMARY | 2025-01-18 09:06 | XMS_ITS | Clinical Summary ---
Author Organization [facility] Address [address] [place] [address] Care Team Providers Care Chocolate Temperer Name Role Phone Jayy Guzman MD Primary Care Provider [phone] Allergies Active Allergy Reactions Criticality Noted Date Comments Cephalexin 07/28/2015 Sulfanilamide 07/28/2015 Diphth-Acell Pertussis-Tetanus 07/28 Medications Flaxseed, Linseed, (FLAXSEED OIL) 1000 MG Cap take 1,000 mg by mouth. Active Cyanocobalamin (VITAMIN B 12) 250 MCG Lozenge take 250 mcg by mouth. Active clopidogrel 75 MG Tab take 75 mg by mouth daily. Active olmesartan 5 MG Tab take 5 mg by mouth 3 times daily. Active ALPRAZolam 0.5 MG Tab take 0.5 mg by mouth At bedtime as needed for Sleep. Active hydroCODone-evan taminophen 7.5-325 MG Tab take 1 tablet by mouth every 6 hours as needed. Active ezetimibe 10 MG Tab take 10 mg by mouth daily. 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 Encounters Date Type Department Care Team Description 11/06/2024 Orders Only Division of Medical Oncology [address] [facility] [place] [address] Danielle Ramos, REVENUE LIAISON-AIR CONDITIONING INSULATION INSTALLER Examination of participant in clinical trial from Last 3 Months Family History Medical History Relation Name Comments Hypertension Father Stroke Mother Lung Cancer Sister 1 Lung Cancer Sister 2 Relation Name Status Comments Father Mother Sister 1 Alive Sister 2 Social History Tobacco Use Types Packs/Day Years Used Date Smoking Tobacco: Every Day Cigarettes 0.5 43 Smokeless Tobacco: Never Alcohol Use Standard Drinks/Week Comments Yes 1 (1 standard drink = 0.6 oz pur e alcohol) Comments Unknown Sex and Gender Information Value Date Recorded Sex Assigned at Not on file Legal Sex Female 1:45 PM EST Gender Identity Not on file Sexual Orientation Not on file Last Filed Vital Signs Vital Sign Reading Time Taken Comments Blood Pressure 198/90 07/28/2015 2:17 PM EST Pulse 90 07/28/2015 2:17 PM EST Temperature 36.3 C (97.4 F) 07/28/2015 2:17 PM EST Respiratory Rate 18 07/28/2015 2:17 PM EST Oxygen Saturation 96% 07/28/2015 2:17 PM EST Inhaled Oxygen Concentration - - Weight 73.4 kg (161 lb 12.8 oz) 07/28/2015 2:17 PM EST Height 160 cm (5' 2.99 ) 07/28/2015 2:17 PM EST Body Mass Index 28.67 07/28/2015 2:17 PM EST Plan of Treatment Health Maintenance Due Date Last Done Comments DEXA SCAN DISCUSSION 1952 HEPATITIS C VIRUS SCREENING 1952 CERVICAL CANCER SCREENING DISCUSSION 1973 LIPID SCREENING 1992 MAMMOGRAM SCREENING DISCUSSION 1992 COLORECTAL CANCER SCREENING DISCUSSION 1997 PNEUMOCOCCAL VACCINE SERIES (1 of 1 - PCV) 2002 ZOSTER (SHINGLES) VACCINE (1 of 2) 2002 COVID-19 VACCINE ( - 2023-2 5 season) 2024 INFLUENZA VACCINE (Season Ended) 2025 RSV VACCINE (1 - 1-dose 75+ series) 11/06/2027 HEP B VACCINE Aged Out No longer elig ible based on patient's age to complete this topic Insurance [employer] Care Teams Chocolate Temperer Relationship Specialty Start Date End Date Jayy Guzman MD [address] [place] [address] PCP - General Family Medicine 07/28/15
--- OUTSIDE RECORDS SUMMARY | 2025-01-18 09:06 | XMS_ITS | Encounter Summary ---
Author Organization [facility] Address [address] [place] [address] Care Team Providers Care Pin Setter Name Role Phone Jayy Guzman MD Primary Care Provider [phone] Zo Tavarez FEED ADVISER Unavailable Marely Seals NP Unavailable Kandace Harvey CHEF SAUCIER Unavailable [phone] Jayy Guzman MD Unavailable [phone] Marcellus Valenzuela DO Unavailable [phone] Marcellus Valenzuela DO Primary Care Provider [phone] Encounter Details Date Type Department Care Team (Late st Contact Info) Description 04/22/2024 Clinisync Result Encounter [facility] External Department Unsolicited [...] any clubs o r organizations such as rastafari groups, unions, fraternal or athletic groups, or [...] Recorded Patient Health Questionnaire-2 Score 4 03/12/2024 [facility] of Occupat ional Health - Occupational [...] Description 02/23/2025 1:20 PM EDT Office Visit [facility] [address] [facility] [address] [place] [address] Marcellus Valenzuela DO [address] [facility] [address] [place] [address] documented as of this encounter Procedures Procedure Name Priority Date/Time Associated Diagnosis Comments XR CHEST 2V FRONTAL/LAT 04/22/2024 1:49 PM EDT documented in this encounter Results * XR CHEST 2V FRONTAL/LAT (04/22/2024 1:49 PM EDT) Anatomical Region Laterality Modality Other 04/22/2024 1:49 PM EDT Narrative 04/23/2024 12:33 PM EDT * * *Final Report* * [...] any questions regarding this interpretation, please call [phone]. If you are unable to reach us at the number above, please feel free to contact [facility] at [phone]. [id number]^[email or web address]^SI^ACN Procedure Note Radiology, Radiologist, - 04/23/2024 * * *Final Report* * * DATE [...] any questions regarding this interpretation, please call [phone]. If you are unable to reach us at the number above, please feel free to contact [facility] at [phone]. [id number]^[email or web address]^SI^ACN us Generic External Data Provider [facility] Final Result documented in this encounter Visit Diagnoses Not on filedocumented in this encounter Additional Health Concerns Assessment Noted Time PHQ-9 Depression Total Score: 10 024 10:00 AM EDT documented as of this encounter Care Teams Pin Setter Relationship Specialty Start Date End Date Jayy Guzman MD [address] [place] [address] PCP - General Family Medicine 12/28/22 12/16/24 Jayy Guzman MD [address] [place] [address] PCP - Carolynn KEN 02/20/24 Marcellus Valenzuela DO [address] [place] [address] PCP - General Family Medicine 12/17/24 Zo Tavarez LSW [address] [place] [address] Oracle Architect Family Medicine 02/22/23 Marely Seals NP [address] [place] [address] Nurse Practitioner Family Medicine 10/24/23 10/21/24 Kandace Harvey NP [address] [place] [address] Nurse Practitioner Family Medicine 10/24/23 12/16/24 Marcellus Valenzuela DO [address] [place] [address] Referring Physician Family Medicine 05/29/24 documented as of this encounter
--- OUTSIDE RECORDS SUMMARY | 2025-01-18 09:06 | XMS_ITS | Encounter Summary ---
Author Organization [facility] Address [address] [facility] [place] [address] Care Team Providers Care Neurobiologist Name Role Phone Jayy Guzman MD Primary Care Provider [phone] Zo Tavarez CERTIFIED FIRST ASSISTANT Unavailable Marely Seals NP Unavailable Kandace Harvey COW TRIMMER Unavailable [phone] Jayy Guzman MD Unavailable [phone] Marcellus Valenzuela DO Unavailable Marcellus Valenzuela DO Primary Care Provider [phone] Encounter Details Date Type Department Care Team (Late st Contact Info) Description 05/05/2024 Abstract [facility] [address] [place] [address] Jayy Guzman MD [address] [place] [address] Social History Tobacco Use Types Packs/Day Years [...] How often do you attend chur or adventism services? Patient declined 04/15/2023 Do you belong to any clubs o r organizations such as jewish groups, unions, fraternal or athletic groups, or [...] Recorded Patient Health Questionnaire-2 Score 4 03/12/2024 [facility] [place] of Occupat ional Health - Occupational Stress [...] 02/23/2025 1:20 PM EDT Office Visit [facility] [address], [address] [place] [address] Marcellus Valenzuela DO [address] [place], [place] [address] documented as of this encounter Visit Diagnoses Not on filedocumented in this encounter Additional Health Concerns Assessment Noted Time PHQ-9 Depression Total Score: 10 024 10:00 AM EDT documented as of this encounter Care Teams Neurobiologist Relationship Specialty Start Date End Date Jayy Guzman MD [address] [place] [address] PCP - General Family Medicine 12/28/22 12/16/24 Jayy Guzman MD [address] [place] [address] PCP - Carolynn KEN 02/20/24 Marcellus Valenzuela DO [address] [place] [address] PCP - General Family Medicine 12/17/24 Zo Tavarez [place]SW [address] [place] [address] Woods Overseer Family Medicine 02/22/23 Marely Seals NP [address] [place] [address] Nurse Practitioner Family Medicine 10/24/23 10/21/24 Kandace Harvey NP [address] [place] [address] Nurse Practitioner Family Medicine 10/24/23 12/16/24 Marcellus Valenzuela DO [address] [place] [address] Referring Physician Family Medicine 05/29/24 documented as of this encounter
--- OUTSIDE RECORDS SUMMARY | 2025-01-18 09:06 | XMS_ITS | Encounter Summary ---
Author Organization [facility] Address [address] [facility] [place] [address] Care Team Providers Care Control Cabinet Assembler Name Role Phone Jayy Guzman MD Primary Care Provider [phone] Zo Tavarez ELECTRICAL ENGINEER MEP Unavailable Marely Selas NP Unavailable Kandace Harvey DISTRIBUTION MANAGER Unavailable [phone] Jayy Guzman MD Unavailable [phone] Marcellus Valenzuela DO Unavailable [phone] Marcellus Valenzuela DO Primary Care Provider [phone] Encounter Details Date Type Department Care Team (Late st Contact Info) Description 06/21/2024 Abstract [facility] [address] [place] [address] Jayy Guzman MD [address] [place] [address] Social History Tobacco Use Types Packs/Day Years [...] How often do you attend chur or cheondoism services? Patient declined 04/15/2023 Do you belong to any clubs o r organizations such as islam groups, unions, fraternal or athletic groups, or [...] Recorded Patient Health Questionnaire-2 Score 0 06/04/2024 [facility] [place] of Occupat ional Health - Occupational Stress [...] place to sleep or slept in a intermediate (including now)? No 04/15/2023 Comments No Sex [...] MEDICINE [address], [address] [place] [address] Marcellus Valenzuela DO [address] [place], [place] [address] documented as of this encounter Visit Diagnoses Not on filedocumented in this encounter Additional Health Concerns Assessment Noted Time PHQ-9 Depression Total Score: 10 024 10:00 AM EDT documented as of this encounter Care Teams Control Cabinet Assembler Relationship Specialty Start Date End Date Jayy Guzman MD [address] [place] [address] PCP - General Family Medicine 12/28/22 12/16/24 Jayy Guzman MD [address] [place] [address] PCP - Carolynn KEN 02/20/24 Marcellus Valenzuela DO [address] [place] [address] PCP - General Family Medicine 12/17/24 Zo Tavarez LSW [address] [place] [address] Photo Finisher Family Medicine 02/22/23 Marely Seals NP [address] [place] [address] Nurse Practitioner Family Medicine 10/24/23 10/21/24 Kandace Harvey NP [address] [place] [address] Nurse Practitioner Family Medicine 10/24/23 12/16/24 Marcellus Valenzuela DO [address] [place] [address] Referring Physician Family Medicine 05/29/24 documented as of this encounter
--- OUTSIDE RECORDS SUMMARY | 2025-01-18 09:06 | XMS_ITS | Encounter Summary ---
Author Organization [facility] Address [address] [facility] [address] Care Team Providers Care Customer Services Coordinator Name Role Phone Jayy Guzman MD Primary Care Provider [phone] Zo Tavarez SHOPPING INSPECTOR Unavailable Kandace Harvey SPINE SPECIALIST Unavailable [phone] Jayy Guzman MD Unavailable [phone] Marcellus Valenzuela DO Unavailable [phone] Marcellus Valenzuela DO Primary Care Provider [phone] Encounter Details Date Type Department Care Team (Late st Contact Info) Description 11/09/2024 Abstract [facility] [address] [place] [address] Jayy Guzman MD [address] [place] [address] Social History Tobacco Use Types Packs/Day Years [...] any clubs o r organizations such as religious groups, unions, fraternal or athletic groups, or [...] Recorded Patient Health Questionnaire-2 Score 2 11/09/2024 [facility] [place] of Occupat ional Health - Occupational Stress [...] as of this encounter Functional Status * Audit-C Score Answer Date of Assessment Author 0 11/09/2024 1:01 PM EDT Rayshawn Alanis MA * Question Answer Date of Assessment Author Q1: How often do you have a drink containing alcohol? Never 11/09/2024 1:01 PM MANFREDT Marylou Alanis MA Q2: How many drinks containing alcohol do you have on a typical day when you are drinking? Patient does not drink 11/09/2024 1:01 PM MANFREDT Marylou Alanis MA Q3: How often do you have six or more drinks on one occasion? Never 11/09/2024 1:01 PM MANFREDT Marylou Alanis MA * Over the past 2 weeks, how often have you been bothered by any of the following problems? Question Answer Date of Assessment Author Little interest or pleasure in doing things Several days 11/09/2024 1:07 PM EDT Marylou Alanis MA Feeling down, depressed, or hopeless Several days 11/09/2024 1:07 PM EDT Marylou Alanis MA Patient Health Questionnaire -2 Score 2 11/09/2024 1:07 PM EDT Marylou Alanis MA * If you checked off any problems on this questionnaire so far, Question Answer Date of Assessment Author How difficult have these problems made it for you to do your work, take care of things at home, or get along with other people? Very difficult 11/09/2024 1:07 PM EDT Marylou Alanis MA documented as of this encounter Plan of Treatment Upcoming Encounters Date Type Department Care Team (Late st Contact Info) Description 02/23/2025 1:20 PM EDT Office Visit [facility] [address] [email or web address] [address] [place] [address] Marcellus Valenzuela DO [address] [facility] [address] [place] [address] documented as of this encounter Visit Diagnoses Not on filedocumented in this encounter Additional Health Concerns Assessment Noted Time PHQ-9 Depression Total Score: 10 024 10:00 AM EDT documented as of this encounter Care Teams Customer Services Coordinator Relationship Specialty Start Date End Date Jayy Guzman MD [address] [place] [address] PCP - General Family Medicine 12/28/22 12/16/24 Jayy Guzman MD [address] [place] [address] PCP - Carolynn KEN 02/20/24 Marcellus Valenzuela DO [address] [place] [address] PCP - General Family Medicine 12/17/24 Zo Tavarez LSW [address] [place] [address] Plant Health Care Technician Family Medicine 02/22/23 Kandace Harvey NP [address] [place] [address] Nurse Practitioner Family Medicine 10/24/23 12/16/24 Marcellus Valenzuela DO [address] [place] [address] Referring Physician Family Medicine 05/29/24 documented as of this encounter
--- OUTSIDE RECORDS SUMMARY | 2025-01-18 09:06 | XMS_ITS | Encounter Summary ---
Author Organization [facility] Address [address] [address] Care Team Providers Care Graduate Teaching Assistant Name Role Phone Jayy Guzman MD Primary Care Provider [phone] Zo Tavarez RE DYE HAND Unavailable Marely Seals NP Unavailable Kandace Harvey INTERNATIONAL TRADE ANALYST Unavailable [phone] Jayy Guzman MD Unavailable [phone] Marcellus Valenzuela DO Unavailable Marcellus Valenzuela DO Primary Care Provider [phone] Encounter Details Date Type Department Care Team (Late st Contact Info) Description 09/15/2024 Abstract [facility] [address] [place] [address] Jayy Guzman MD [address] [place] [address] Social History Tobacco Use Types Packs/Day Years [...] any clubs o r organizations such as gnosticism groups, unions, fraternal or athletic groups, or school groups? Patient declined 04/15/2023 How often do you attend meet ings of the clubs or organizations you belong to? Patient declined 04/15/2023 Are you , , di vorced, , never , or living with a partner? 04/15/2023 AUDIT-C Answer Date Recorded Q1: How often do you have a drink containing alcohol? Never 07/29/2024 Q2: How many drinks containi ng alcohol do you have on a typical day when you are drinking? Patient does not drink Q3: How often do you have si x or more drinks on one occasion? Never 07/29/2024 Overall Financial Resource Strain (CARDIA) Answe r Date Recorded How hard is it for you to pa y for the very basics like food, housing, medical care, and heating? Not hard at all 04/15/2023 PHQ-2 Answer Date Recorded Patient Health Questionnaire-2 Score 0 07/29/2024 [facility] [place] of Occupat ional Health - Occupational Stress [...] MEDICINE [address] [place] [address] Marcellus Valenzuela DO [address] [place], [place] [id number] documented as of this encounter Visit Diagnoses Not on filedocumented in this encounter Additional Health Concerns Assessment Noted Time PHQ-9 Depression Total Score: 10 024 10:00 AM EDT documented as of this encounter Care Teams Graduate Teaching Assistant Relationship Specialty Start Date End Date Jayy Guzman MD [address] [place] [address] PCP - General Family Medicine 12/28/22 12/16/24 Jayy Guzman MD [address] [place] [address] PCP - Carolynn KEN 02/20/24 Marcellus Valenzuela DO [address] [place] [address] PCP - General Family Medicine 12/17/24 Zo Tavarez LSW [address] [place] [address] Locomotive Firer/Fireman Family Medicine 02/22/23 Marely Seals NP [address] [place] [address] Nurse Practitioner Family Medicine 10/24/23 10/21/24 Kandace Harvey NP [address] [place] [address] Nurse Practitioner Family Medicine 10/24/23 12/16/24 Marcellus Valenzuela DO [address] [place] [address] Referring Physician Family Medicine 05/29/24 documented as of this encounter
--- OUTSIDE RECORDS SUMMARY | 2025-01-18 09:06 | XMS_ITS | Encounter Summary ---
Author Organization [facility] Address [address] [place] [address] Care Team Providers Care Account Management Specialist Name Role Phone Jayy Guzman MD Primary Care Provider [phone] Zo Tavarez CANDLE MOLDER MACHINE Unavailable Marely Seals NP Unavailable Kandace Harvey FEATHEREDGE MACHINE OPERATOR Unavailable [phone] Jayy Guzman MD Unavailable [phone] Marcellus Valenzuela DO Unavailable [phone] Marcellus Valenzuela DO Primary Care Provider [phone] Encounter Details Date Type Department Care Team (Late st Contact Info) Description 07/03/2024 Abstract [facility] [address] [place] [address] Jayy Guzman MD [address] [place] [address] Social History Tobacco Use Types Packs/Day Years [...] How often do you attend chur or nondenominational services? Patient declined 04/15/2023 Do you belong [...] Recorded Patient Health Questionnaire-2 Score 0 06/04/2024 [facility] [place] of Occupat ional Health - Occupational Stress [...] MEDICINE [address] [place] [address] Marcellus Valenzuela DO [address] [place], [place] [address] documented as of this encounter Visit Diagnoses Not on filedocumented in this encounter Additional Health Concerns Assessment Noted Time PHQ-9 Depression Total Score: 10 024 10:00 AM EDT documented as of this encounter Care Teams Account Management Specialist Relationship Specialty Start Date End Date Jayy Guzman MD [address] [place] [address] PCP - General Family Medicine 12/28/22 12/16/24 Jayy Guzman MD [address] [place] [address] PCP - Carolynn KEN 02/20/24 Marcellus Valenzuela DO [address] [place] [address] PCP - General Family Medicine 12/17/24 Zo Tavarez LSW [address] [place] [address] Bulk System Operator Family Medicine 02/22/23 Marely Seals NP [address] [place] [address] Nurse Practitioner Family Medicine 10/24/23 10/21/24 Kandace Harvey NP [address] [place] [address] Nurse Practitioner Family Medicine 10/24/23 12/16/24 Marcellus Valenzuela DO [address] [place] [address] Referring Physician Family Medicine 05/29/24 documented as of this encounter
--- OUTSIDE RECORDS SUMMARY | 2025-01-18 09:06 | XMS_ITS | Encounter Summary ---
Author Organization [facility] Address [address] [place] [address] Care Team Providers Care Cereal Popper Name Role Phone DaysiZo PEDRO Unavailable Jayy Guzman MD Unavailable [phone] Marcellsu Valenzuela DO Unavailable [phone] Marcellus Valenzuela DO Primary Care Provider [phone] Encounter Details Date Type Department Care Team (Late st Contact Info) Description 01/07/2025 Abstract [facility] [address] [place] [phone] Marcellus Valenzuela DO [address] [facility] [address] [place] [address] Social History Tobacco Use Types Packs/Day Years [...] How often do you attend chur or catholic services? Patient declined 04/15/2023 Do you belong [...] Recorded Patient Health Questionnaire-2 Score 0 12/24/2024 [facility] of Occupat ional Health - [...] Description 02/23/2025 1:20 PM EDT [facility] [address] [facility] [address] [place] [address] Marcellus Valenzuela DO [address] [place] [address] documented as of this encounter Visit Diagnoses Not on filedocumented in this encounter Additional Health Concerns Assessment Noted Time PHQ-9 Depression Total Score: 10 024 10:00 AM EDT documented as of this encounter Care Teams Cereal Popper Relationship Specialty Start Date End Date Jayy Guzman MD [address] [place] [address] PCP - Carolynn KEN 02/20/24 Marcellus Valnezuela DO [address] [place] [address] PCP - General Family Medicine 12/17/24 Zo Tavarez [facility] [address] [place] [address] Internet Sales Manager Family Medicine 02/22/23 Marcellus Valenzuela DO [address] [place] [address] Referring Physician Family Medicine 05/29/24 documented as of this encounter
--- OUTSIDE RECORDS SUMMARY | 2025-01-18 09:06 | XMS_ITS | Encounter Summary ---
Author Organization [facility] Address [address] [facility] [place] [address] Care Team Providers Care School Bus Driver/Mechanic Name Role Phone Jayy Guzman MD Primary Care Provider [phone] Zo Tavarez JUNCTION MAKER Unavailable Kandace Harvey OFFICE CLIN ASST Unavailable [phone] Jayy Guzman MD Unavailable [phone] Marcellus Valenzuela DO Unavailable [phone] Marcellus Valenzuela DO Primary Care Provider [phone] Encounter Details Date Type Department Care Team (Late st Contact Info) Description 11/04/2024 Abstract [facility] [address] [place] [address] Jayy Guzman MD [address] [place] [address] Social History Tobacco Use Types Packs/Day Years [...] any clubs o r organizations such as taoist groups, unions, fraternal or athletic groups, or [...] Recorded Patient Health Questionnaire-2 Score 0 10/26/2024 [facility] [place] of Occupat ional Health - Occupational Stress [...] 02/23/2025 1:20 PM EDT Office Visit [facility] [address] [place] [address] Marcellus Valenzuela DO [address] [facility] [address] [place] [address] documented as of this encounter Visit Diagnoses Not on filedocumented in this encounter Additional Health Concerns Assessment Noted Time PHQ-9 Depression Total Score: 10 024 10:00 AM EDT documented as of this encounter Care Teams School Bus Driver/Mechanic Relationship Specialty Start Date End Date Jayy Guzman MD [address] [place] [address] PCP - General Family Medicine 12/28/22 12/16/24 Jayy Guzman MD [address] [place] [address] PCP - Carolynn [place] 02/20/24 Marcellus Valenzuela DO [address] [place] [address] PCP - General Family Medicine 12/17/24 Zo Tavarez LSW [address] [place] [address] Brick Unloader Tender Family Medicine 02/22/23 Kandace Harvey NP [address] [place] [address] Nurse Practitioner Family Medicine 10/24/23 12/16/24 Marcellus Valenzuela DO [address] [place] [address] Referring Physician Family Medicine 05/29/24 documented as of this encounter
--- OUTSIDE RECORDS SUMMARY | 2025-01-18 09:06 | XMS_ITS | Clinical Summary ---
Author Organization [facility] Address [address] [place], [place] [address] Care Team Providers Care Geotechnical Intern Name Role Phone Jayy Guzman MD Primary Care Provider [phone] iJe Johnson APRN.OPHTHALMIC DISPENSER Unavailable [phone] Jayy Parker MD Unavailable [phone] Roxana Wagner RN Unavailable [phone] Allergies Active Allergy Reactions Criticality Noted Date Comments Latex Itching 08/13/2023 Morphine Mental Status Change High 09/08/2009 Nitrofuran Analogues 07/07/2001 Sulfa (Sulfonamide Antibiotics) 06/21 Medications alprazolam(XANA X 0.5 MG TAB) Take one(1) tablet two (2) times daily. 60 0 09/14/2009 Active nitroglycerin sublingual (NITROQUICK) 0.4 mg SL tablet Dissolve 0.4 mg under the tongue every 5 minutes as needed for chest pain. Active HYDROcodone-Roscoe taminophen (NORCO) 7.5-325 mg per tablet Take 1 tablet by mouth every 8 hours as needed for pain. Active metoprolol tartrate 75 mg tab Take 75 mg by mouth twice daily. Active furosemide (LASIX) 20 mg tablet Take 20 mg by mouth once daily as needed. 10/11/2022 Active amLODIPine (NORVASC) 10 mg tablet Take 1 tablet by mouth every afternoon. 04/11/2023 Active predniSONE (DELTASONE) 20 mg tablet Take 2 tablets by mouth once daily. 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 Other and unspecified hyperlipidemia Encounters Date Type Department Care Team Description 11/04/2024 Telephone Hematology/Oncology [address] [place] [address] [place] [address] Jie Johnson, PAUL.OPHTHALMIC DISPENSER Care Coordination (Oxygen Request) from Last 3 Months Immunizations Immunization Administration Dates Next Due diphtheria tetanus (DT) vaccine, pediatric 07/22 hepatitis B (HepB) vaccine, 3-dose series, age 20+ yr (ENGERIX-B, RECOMBIVAX HB) 12/21/1995,08/22/1995,07/22/1995 tetanus diphtheria pertussis (Tdap) vaccine, age 7+ yr (ADACEL, BOOSTRIX) 03/31/2013 Family History Medical History Relation Comments Ischemic Heart Disease Father HTN Cancer Maternal Grandfather Leukemia; H eart Stroke Mother Alcohol Abuse Alcohol/Drug Sister Cancer Sister lung Relation Status Comments Father Maternal Grandfather Mother Sister Social History Tobacco Use Types Packs/Day Years Used Date Smoking Tobacco: Every Day Cigarettes 0.3 40 Passive Smoke Exposure: Current Smokeless Tobacco: Never Tobacco Cessation:Ready to Q uit: Not Asked; Counseling Given: Not Answered Alcohol Use Standard Drinks/Week Comments Not Currently 0 (1 standard drink = 0.6 oz pur e alcohol) rare PHQ-2 Answer Date Recorded PHQ-2 score 2 02/04/2023 Area Deprivation Index Answer Date Lasha rded National Score (1-100), lower number is lower ri sk 78 12/13/2022 State Score (1-10), lower number is lower risk 6 12/13/2022 Data from: https://www.neighborhoodatlas.medicine.[facility].edu/. 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 Not on file Not on file Last Filed Vital Signs Vital Sign Reading Time Taken Comments Blood Pressure 216/80 05/05/2024 12:59 PM EDT manual check Pulse 61 05/05/2024 12:50 PM EDT Temperature 36.2 C (97.2 F) 05/05/2024 12:50 PM EDT Respiratory Rate 18 05/05/2024 12:5 0 PM EDT Oxygen Saturation 91% 05/05/2024 12: 50 PM EDT 3 liters of O2 Inhaled Oxygen Concentration - - Weight 76 kg (167 lb 8.8 oz) 05/05/2024 12:50 PM EDT Height 158.8 cm (5' 2.52 ) 05/05/2024 1 2:50 PM EDT Body Mass Index 30.14 05/05/2024 12:50 PM EDT Plan of Treatment Health Maintenance Due Date Last Done Comments Annual PCP Team Chronic Dise ase Visit 1970 Pneumococcal Vaccine: 50+ (1 of 2 - PCV) 11/06/1971 CT Colonography 1997 Colonoscopy 1997 Fecal Occult Blood 1997 Sigmoidoscopy 1997 Shingrix Vaccine (1 of 2) 2002 RSV Vaccine (1 - Risk 60-74 years 1-dose series) 2012 Bone Density Screening 2017 Mammogram Screening 03/17/2020 03/17/2019, 03/17/2019, 03/17/2019 Cologuard (FIT-DNA) 12/29/2021 12/29/2018 Colorectal Cancer Screening 12/29/2021 DTaP,Tdap,Td Vaccine (3 - Td or Tdap) 03/31/2023 03/31/2013, 07/22/1995 LDL Cholesterol 01/26/2024 01/25/2023, 01/25/2023 Covid-19 Vaccine (5 - 2023-2 5 season) 2024 04/19/2022, 04/18/2021, 10/11/2020, Additional history exists Advance Directive Discussion 07/22/2024 Medicare Advantage Annual We llness Visit 07/22/2024 Influenza Vaccine (Season Ended) 2025 Diabetes Screening 05/05/2027 05/05/2024, 0 04/14/2024, 03/24/2024, Additional history exists Lipid Screening 01/26/2028 01/25/2023, 01/25/2023 Hepatitis C Screening Completed 03/31/2001 Medical Devices Implanted Type Area Supervising Architect Device Identifier Shelf Expiration Date Model / Serial / Lot Port-07/25/2023 Implanted:07/25 (Quantity not on file) Chest Wall Procedures Procedure Name Priority Date/Time Associated Diagnosis Comments COMPREHENSIVE METABOLIC PANEL Routine 05/05/2024 12:39 PM EDT 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, right (HCC) HEP REMOTE PANEL BL 03/31/2001 3 :23 PM EDT from Last 3 Months or Most Recently Relevant to Health Maintenance Results * (ABNORMAL) COMPREHENSIVE METABOLIC PANEL (05/05/2024 12:39 PM EDT) Protein, Total 6.0(L) 6.3 - 8.0 g/dL 05/05/2024 1:16 PM EDT [facility] Albumin 3.8(L) 3.9 - 4.9 g/dL 05/05/2024 1:16 PM EDT [facility] Calcium, Total 8.7 8.5 - 10.2 mg/dL 05/05/2024 1:16 PM EDT [facility] Bilirubin, Total 0.5 0.2 - 1.3 mg/dL 05/05/2024 1:16 PM EDT [facility] Alkaline Phosphatase 76 34 - 123 U/L 05/05/2024 1:16 PM EDT [facility] AST 16 13 - 35 U/L 05/05/2024 1:16 PM EDT [facility] ALT 19 7 - 38 U/L 05/05/2024 1:16 PM EDT [facility] Glucose 87 74 - 99 mg/dL 05/05/2024 1:16 PM EDT [facility] Comment: The [place] Diabetes Association (ADA) provides guidance for cutoff [...] Standards of Medical Care in Diabetes 2016, [place] Diabetes Association. Diabetes Care. 2016.39(Suppl 1). BUN 44(H) 7 - 21 mg/dL 05/05/2024 1:16 PM EDT [facility] Creatinine 1.50(H) 0.58 - 0.96 mg/dL 05/05/2024 1:16 PM EDT [facility] Sodium 143 136 - 144 mmol/L 05/05/2024 1:16 PM T [facility] Potassium 4.0 3.7 - 5.1 mmol/L 05/05/2024 1:16 PM EDT [facility] Chloride 103 98 - 107 mmol/L 05/05/2024 1:16 PM EDT [facility] CO2 32(H) 22 - 30 mmol/L 05/05/2024 1:16 PM EDT [facility] Anion Gap 8 8 - 15 mmol/L 05/05/2024 1:16 PM EDT [facility] Estimated Glomerular Filtration Rate 37(L) >=60 mL/min/1. 73m 05/05/2024 1:16 PM T [facility] Comment:Estimated Glomerular Filtration Rate (eGFR) is calculated using the 2020 CKD-EPI creatinine equation. This equation utilizes serum creatinine, sex, and age as parameters. The creatinine assay has traceable calibration to isotope dilution- mass spectrometry. Refer to KDIGO guidelines for clinical interpretation. In patients with unstable renal function, e.g. those with acute kidney injury, the eGFR may not accurately reflect actual GFR. Blood BLOOD SPECIMEN / Unknown Port - Continuous Access Dev. / Unknown 05/05/2024 12:39 PM EDT 05/05/2024 12:52 PM EDT us Mehnaz Browning PA-C LABORATORY Final Result [facility] [address] [place] [address] * (ABNORMAL) HEP REMOTE PANEL BL (03/31/2001 3:23 PM EDT) Hep B Core Ab, Total Negative NEG [facility] Hep C Antibody IA Negative NEG CL [facility] HBsAg Negative NEG [facility] Hep B Surface Ab, Qual Positive(A) NEG [facility] Comment: A positive Hepatitis B Surface Antibody or a result of > or = 10 mIU/mL implies immunity to HBV. For additional information and guidelines see MMWR 1990,39(RR-2) 1-, August 30, 1989. Interpretation (Hep Remote Pnl) These results are consistent with previous exposure and immunity to the [facility] Comment:hepatitis B virus an tigen, as seen for example secondary to vaccination. 03/31/2001 3:23 PM EDT Martinez Hayes Jr., MD LABORATORY Final Res ult [facility] [address] [place] [address] from Last 3 Months or Most Recently Relevant to Health Maintenance Insurance [facility] [address] [place] [address] Care Teams Geotechnical Intern Relationship Specialty Start Date End Date Jayy Guzman MD [address] [place] [address] PCP - General 09/01/09 Jie Johnson APRN.OPHTHALMIC DISPENSER [address] [place] [address] [place] [address] Nurse Practitioner Hematology/Oncology 01/16/23 Jayy Parker MD [address] [place] [address] [place] [address] Physician Hematology/Oncology 01/16/23 Roxana Wagner, LIU [address] [place] [address] Specialty Refrigeration Engine Operator Hematology/Oncology 01/16/23
--- OUTSIDE RECORDS SUMMARY | 2025-01-18 09:06 | XMS_ITS | Encounter Summary ---
Author Organization [facility] Address [address] [place] [address] Phone Care Team Providers Care Screedman Name Role Phone Jayy Guzman MD Primary Care Provider Encounter Details Date Type Department Care Team (Late st Contact Info) Description 05/28/2024 Scanned Document [facility] [address] [place] [address] Scanning, Generic Provider Social History Tobacco Use Types Packs/Day [...] on filedocumented in this encounter Care Teams Screedman Relationship Specialty Start Date End Date Jayy Guzman MD [address] [place] [address] PCP - General 03/01/15 documented as of this encounter
--- OUTSIDE RECORDS SUMMARY | 2025-01-18 09:06 | XMS_ITS | Encounter Summary ---
Author Organization [facility] Address [address] [place] [address] Care Team Providers Care Senior Production Supervisor Name Role Phone Jayy Guzman MD Primary Care Provider [phone] Zo Tavarez GORE INSERTER Unavailable Kandace Harvey COOK HELPER DESSERT Unavailable [phone] Jayy Guzman MD Unavailable [phone] Marcellus Valenzuela DO Unavailable [phone] Marcellus Valenzuela DO Primary Care Provider [phone] Encounter Details Date Type Department Care Team (Late st Contact Info) Description 11/25/2024 Abstract [facility] [address] [place] [address] Jayy Guzman MD [address] [place] [address] Social History Tobacco Use Types Packs/Day Years [...] How often do you attend chur or taoist services? Patient declined 04/15/2023 Do you belong to any clubs o r organizations such as baptism groups, unions, fraternal or athletic groups, or [...] Recorded Patient Health Questionnaire-2 Score 2 11/09/2024 [facility] [place] of Occupat ional Health - Occupational Stress [...] MEDICINE [address] [place] [address] Marcellus Valenzuela DO [address] [facility] [address] [place] [address] documented as of this encounter Visit Diagnoses Not on filedocumented in this encounter Additional Health Concerns Assessment Noted Time PHQ-9 Depression Total Score: 10 024 10:00 AM EDT documented as of this encounter Care Teams Senior Production Supervisor Relationship Specialty Start Date End Date Jayy Guzman MD [address] [place] [address] PCP - General Family Medicine 12/28/22 12/16/24 Jayy Guzman MD [address] [place] [address] PCP - Carolynn [place] 02/20/24 Marcellus Valenzuela DO [address] [place] [address] PCP - General Family Medicine 12/17/24 Zo Tavarez LSW [address] [place] [address] Lump Roller Family Medicine 02/22/23 Kandace Harvey NP [address] [place] [address] Nurse Practitioner Family Medicine 10/24/23 12/16/24 Marcellus Valenzuela DO [address] [place] [address] Referring Physician Family Medicine 05/29/24 documented as of this encounter
--- OUTSIDE RECORDS SUMMARY | 2025-01-18 09:07 | XMS_ITS | Encounter Summary ---
Author Organization [facility] Address [address] [place] [address] Care Team Providers Care Color Artist Name Role Phone Jayy Guzman MD Primary Care Provider [phone] Zo Tavarez ADMISSION DISCHARGE RN Unavailable Marely Seals NP Unavailable Kandace Harvey QUALITY CONTROL REPRESENTATIVE Unavailable [phone] Jayy Guzman MD Unavailable [phone] Marcellus Valenzuela DO Unavailable [phone] Marcellus Valenzuela DO Primary Care Provider [phone] Encounter Details Date Type Department Care Team (Late st Contact Info) Description 08/13/2023 Abstract [facility] [address] [place] [address] Jayy Guzman MD [address] [place] [address] Social History Tobacco Use Types Packs/Day Years [...] declined 04/15/2023 How often do you attend [facility] or spiritism services? Patient declined 04/15/2023 Do you belong to any clubs o r organizations such as voodoo groups, unions, fraternal or athletic groups, or [...] Recorded Patient Health Questionnaire-2 Score 0 01/28/2023 [facility] of Occupat ional Health - Occupational Stress [...] [facility] [address] , [facility] [address] [place] [address] Marcellus Valenzuela DO [address] [facility] [address] [place] [address] documented as of this encounter Visit Diagnoses Not on filedocumented in this encounter Care Teams Color Artist Relationship Specialty Start Date End Date Jayy Guzman MD [address] [place] [address] PCP - General Family Medicine 12/28/22 12/16/24 Jayy Guzman MD [address] [place] [address] PCP - Carolynn KEN 02/20/24 Marcellus Valenzuela DO [address] [place] [address] PCP - General Family Medicine 12/17/24 Zo Tavarez [place]SW [address] [place] [address] Roundhouse Supervisor Family Medicine 02/22/23 Marely Seals NP [address] [place] [address] Nurse Practitioner Family Medicine 10/24/23 10/21/24 Kandace Harvey NP [address] [place] [address] Nurse Practitioner Family Medicine 10/24/23 12/16/24 Marcellus Valenzuela DO [address] [place] [address] Referring Physician Family Medicine 05/29/24 documented as of this encounter
--- OUTSIDE RECORDS SUMMARY | 2025-01-18 09:07 | XMS_ITS | Encounter Summary ---
Author Organization [facility] Address [address] [place] [address] Care Team Providers Care Occupational Therapy Supervisor Name Role Phone Jayy Guzman MD Primary Care Provider [phone] Jayy Guzman MD Unavailable [phone] Zo Tavarez TUBING MILL SETTER Unavailable Marely Seals NP Unavailable Kandace Harvey VIRGINIA LINE ATTENDANT Unavailable [phone] Jayy Guzman MD Unavailable [phone] Marcellus Valenzuela DO Unavailable [phone] Marcellus Valenzuela DO Primary Care Provider [phone] Encounter Details Date Type Department Care Team (Late st Contact Info) Description 04/16/2023 Clinisync Result Encounter [facility] External Department Unsolicited [...] 04/15/2023 How often do you attend chur ch or anglican services? Patient declined 04/15/2023 Do you belong to any clubs o r organizations such as christianity groups, unions, fraternal or athletic groups, or school groups? Patient declined 04/15/2023 How often do you attend meet ings of the clubs or organizations you belong to? Patient declined 04/15/2023 Are you , , di vorced, , never , or living with a partner? 04/15/2023 AUDIT-C Answer Date Recorded Q1: How often do you have a drink containing alcohol? Never 04/16/2023 Q2: How many drinks containi ng alcohol do you have on a typical day when you are drinking? Patient does not drink Q3: How often do you have si x or more drinks on one occasion? Never 04/16/2023 Overall Financial Resource Strain (CARDIA) Answe r Date Recorded How hard is it for you to pa y for the very basics like food, housing, medical care, and heating? Not hard at all 04/15/2023 PHQ-2 Answer Date Recorded Patient Health Questionnaire-2 Score 0 01/28/2023 [facility] of Occupat ional Health - Occupational Stress [...] nursing home (including now)? No 04/15/2023 Comments Unknown Sex and Gender Information Value Date Recorded Sex Assigned at Not on file Legal Sex Female 6:53 PM EDT Gender Identity Not on file Sexual Orientation Not on file COVID-19 Exposure Response Date Recorded In the last 10 days, have yo u been in contact with someone who was confirmed or suspected to have Coronavirus/COVID-19? No / Unsure 04/15/2023 10:35 PM EDT documented as of this encounter Functional Status * Audit-C Score Answer Date of Assessment Author 0 04/16/2023 10:41 AM Laura Daly MA * Question Answer Date of Assessment Author Q1: How often do you have a drink containing alcohol? Never 04/16/2023 10:41 AM Anette Daly MA Q2: How many drinks containing alcohol do you have on a typical day when you are drinking? Patient does not drink 04/16/2023 10:41 AM Laura Daly MA Q3: How often do you have six or more drinks on one occasion? Never 04/16/2023 10:41 AM EDT Anette Klein MA documented as of this encounter Plan of Treatment Upcoming Encounters Date Type Department Care Team (Late st Contact Info) Description 02/23/2025 1:20 PM EDT Office Visit [facility] [address] [place] [address] [place] [address] Marcellus Valenzuela DO [address] [place] [address] [place] [address] documented as of this encounter Procedures Procedure Name Priority Date/Time Associated Diagnosis Comments CT CHEST W IV CONTRAST 04/16/2023 9:17 AM EDT documented in this encounter Results * CT chest w IV contrast (04/16/2023 9:17 AM EDT) Anatomical Region Laterality Modality Body, Chest Computed Tomogra phy 04/16/2023 9:17 AM EDT Narrative 04/16/2023 12:00 PM EDT * * *Final Report* * * DATE OF EXAM: Apr 16 2023 9:17AM [facility] 0539 - CT CHEST W IVCON / PROCEDURE REASON: multiple diagnoses * * * * Physician Interpretation * * * * RESULT: EXAMINATION: CHEST CT WITH CONTRAST CLINICAL HISTORY: Lung cancer. Technique: Spiral CT acquisition of the chest from the thoracic inlet to the upper abdomen following IV contrast. MQ: CTCW_6 Contrast: 150 mL Omnipaque [address] Radiation dose: Integrated Dose-length product (DLP) for this visit = 1181 mGy*cm CT Dose Reduction Employed: Automated exposure control (AEC) Comparison: PET CT from 12/10/[address] from 11/22/2022 RESULT: Limitations: None. Lines, tubes, and devices: None. Lung parenchyma and airways: Moderate centrilobular and paraseptal emphysema with an upper lobe predominance. There is also bibasilar subpleural interstitial reticulation which could be related to a component of the emphysema or possibly underlying interstitial lung disease. This is similar in appearance to the prior study. Surgical changes compatible with left upper lobectomy as well as areas of wedge resection in the right lung. Again noted are multiple pulmonary nodules. The largest nodule on the prior exam was in the medial right upper lobe along the wedge resection line. This measured 24 x 18 mm in size on the prior exam. This is decreased in size on today's exam and measures 12 x 9 mm on slice 58 of series 4. For example, there is a 14 x 5 mm nodular density in the lateral right lobe on slice 102 of series 4. This is decreased in size when compared to the prior chest CT from 11/22/2022, when it measured 19 x 15 mm. Stable 8 mm solid nodule in the lateral right lower lobe on slice 128 of series 4. 7 mm solid nodule in the posterior right upper lobe on slice 38 of series 4 which may be slightly decreased in size when compared to the prior study. There are additional similar-appearing subcentimeter pulmonary nodules. Pleura: Trace right pleural effusion which is minimally decreased in volume. Lower neck, lymph nodes, and mediastinum: On patient's prior examination, there is an enlarged right precarinal lymph node measuring 2.4 x 1.8 cm in size. This appears markedly improved on today's exam with no residual measurable adenopathy in this location. There was also a 3.5 x 2.1 cm subcarinal lymph node present on patient's prior exam. This is significantly decreased in size compared to the prior study and now measures 2.3 x 1.3 cm on slice 81 of series 3. No new or worsening adenopathy. Small right hilar lymph nodes which are nonspecific. Heart, pericardium, and thoracic vessels: Anterior chest surgery compatible with coronary artery bypass grafting. Moderate to marked atherosclerosis of the thoracic aorta. Bones and soft tissues: Bilateral breast augmentations. There is capsular rupture of the right breast implant. Upper abdomen: A CT of the abdomen and pelvis was performed and will be reported separately. Social Media Strategist (topogram) images: No additional findings. IMPRESSION: 1. Positive response to therapy when compared to the prior PET/CT from 12/10/[address] from 11/22/2022. There has been decrease in the size of patient's lung nodularity with no new or worsening lung nodules. There has also been significant decrease in the previously seen mediastinal adenopathy. Transcribe Date/Time: Apr 16 2023 11:45A Dictated by: JACKSON PARR MD This examination was interpreted and the report reviewed and electronically signed by: JACKSON PARR MD on Apr 16 2023 11:58AM EST Thank you for allowing us to participate in the care of your patient. Should there be any questions regarding this interpretation, please call [phone]. If you are unable to reach us at the number above, please feel free to contact [facility] at [phone]. [id number] Procedure Note Radiology, Radiologist, - 04/16/2023 * * *Final Report* * * DATE OF EXAM: Apr 16 2023 9:17AM [facility] 0539 - CT CHEST W IVCON / PROCEDURE REASON: multiple diagnoses * * * * Physician Interpretation * * * * RESULT: EXAMINATION: CHEST CT WITH CONTRAST CLINICAL HISTORY: Lung cancer. Technique: Spiral CT acquisition of the chest from the thoracic inlet to the upper abdomen following IV contrast. MQ: CTCW_6 Contrast: 150 mL Omnipaque [address] Radiation dose: Integrated Dose-length product (DLP) for this visit = 1181 mGy*cm CT Dose Reduction Employed: Automated exposure control (AEC) Comparison: PET CT from 12/10/[address] from 11/22/2022 RESULT: Limitations: None. Lines, tubes, and devices: None. Lung parenchyma and airways: Moderate centrilobular and paraseptal emphysema with an upper lobe predominance. There is also bibasilar subpleural interstitial reticulation which could be related to a component of the emphysema or possibly underlying interstitial lung disease. This is similar in appearance to the prior study. Surgical changes compatible with left upper lobectomy as well as areas of wedge resection in the right lung. Again noted are multiple pulmonary nodules. The largest nodule on the prior exam was in the medial right upper lobe along the wedge resection line. This measured 24 x 18 mm in size on the prior exam. This is decreased in size on today's exam and measures 12 x 9 mm on slice 58 of series 4. For example, there is a 14 x 5 mm nodular density in the lateral right lobe on slice 102 of series 4. This is decreased in size when compared to the prior chest CT from 11/22/2022, when it measured 19 x 15 mm. Stable 8 mm solid nodule in the lateral right lower lobe on slice 128 of series 4. 7 mm solid nodule in the posterior right upper lobe on slice 38 of series 4 which may be slightly decreased in size when compared to the prior study. There are additional similar-appearing subcentimeter pulmonary nodules. Pleura: Trace right pleural effusion which is minimally decreased in volume. Lower neck, lymph nodes, and mediastinum: On patient's prior examination, there is an enlarged right precarinal lymph node measuring 2.4 x 1.8 cm in size. This appears markedly improved on today's exam with no residual measurable adenopathy in this location. There was also a 3.5 x 2.1 cm subcarinal lymph node present on patient's prior exam. This is significantly decreased in size compared to the prior study and now measures 2.3 x 1.3 cm on slice 81 of series 3. No new or worsening adenopathy. Small right hilar lymph nodes which are nonspecific. Heart, pericardium, and thoracic vessels: Anterior chest surgery compatible with coronary artery bypass grafting. Moderate to marked atherosclerosis of the thoracic aorta. Bones and soft tissues: Bilateral breast augmentations. There is capsular rupture of the right breast implant. Upper abdomen: A CT of the abdomen and pelvis was performed and will be reported separately. Social Media Strategist (topogram) images: No additional findings. IMPRESSION: 1. Positive response to therapy when compared to the prior PET/CT from 12/10/[address] from 11/22/2022. There has been decrease in the size of patient's lung nodularity with no new or worsening lung nodules. There has also been significant decrease in the previously seen mediastinal adenopathy. Transcribe Date/Time: Apr 16 2023 11:45A Dictated by: JACKSON PARR MD This examination was interpreted and the report reviewed and electronically signed by: JACKSON PARR MD on Apr 16 2023 11:58AM EST Thank you for allowing us to participate in the care of your patient. Should there be any questions regarding this interpretation, please call [phone]. If you are unable to reach us at the number above, please feel free to contact [facility] at [phone]. [id number] us Generic External Data Provider IMG CT PROCEDURES Final Result documented in this encounter Visit Diagnoses Not on filedocumented in this encounter Care Teams Occupational Therapy Supervisor Relationship Specialty Start Date End Date Jayy Guzman MD [address] [place] [address] PCP - General Family Medicine 12/28/22 12/16/24 Jayy Guzman MD [address] [place] [address] PCP - Carolynn KEN 01/19/23 06/20/23 Jayy Guzman MD [address] [place] [address] PCP - Carolynn KEN 02/20/24 Marcellus Valenzuela DO [address] [place] [address] PCP - General Family Medicine 12/17/24 Zo Tavarez LSW [address] [place] [address] Admissions Clerk Family Medicine 02/22/23 Marely Seals NP [address] [place] [address] Nurse Practitioner Family Medicine 10/24/23 10/21/24 Kandace Harvey NP [address] [place] [address] Nurse Practitioner Family Medicine 10/24/23 12/16/24 Marcellus Valenzuela DO [address] [place] [address] Referring Physician Family Medicine 05/29/24 documented as of this encounter
--- OUTSIDE RECORDS SUMMARY | 2025-01-18 09:07 | XMS_ITS | Encounter Summary ---
Author Organization [facility] Address [address] [place] [address] Care Team Providers Care Environmental Health Manager Name Role Phone Jayy Guzman MD Primary Care Provider [phone] Jie Johnson APRN.INTELLIGENCE MANAGER Unavailable [phone] Jayy Parker MD Unavailable [phone] Roxana Wagner RN Unavailable [phone] Source Comments In the event this information is protected by the Federal Confidentiality of Alcohol and Drug AbusePatient Records regulations: The Federal rules restrict any use of the information to criminally investigate or prosecute any alcohol or drug abuse patient.[facility] Encounter Details Date Type Department Care Team (Latest Contact Info) Description 05/12/2024 H&P External-NonCCF Provider, External, PASarahC Do not [...] is lower risk 6 12/13/2022 Data from: https://www.[email or web address].medicine.[email or web address].edu/. Last address used for calculation [address] [place] [address] [address] 12/13/2022 Comments No Sex and [...] on filedocumented in this encounter Care Teams Environmental Health Manager Relationship Specialty Start Date End Date Jayy Guzman MD [address] [place] [address] PCP - General 09/01/09 Jie Johnson, LITERATURE TEACHER.INTELLIGENCE MANAGER [address] [place] [address] Nurse Practitioner Hematology/Oncology 01/16/23 Jayy Parker MD [address] [place] [address] Physician Hematology/Oncology 01/16/23 Roxana Wagner, RN [address] [place] [address] Specialty Regulatory Internship Hematology/Oncology 01/16/23 documented as of this encounter
--- OUTSIDE RECORDS SUMMARY | 2025-01-18 09:07 | XMS_ITS | Encounter Summary ---
Author Organization [facility] Address [address] [place] [address] Phone Care Team Providers Care Regional Commercial Sales Manager Name Role Phone Jayy Guzman MD Primary Care Provider [phone] Encounter Details Date Type Department Care Team (Late st Contact Info) Description 05/11/2024 Scanned Document [place] [address] [place] [address] Scanning, Generic Provider Social History Tobacco Use Types Packs/Day Years Used Date Smoking Tobacco: Never Assessed Comments Unknown Sex and Gender Information Value Date Recorded Sex Assigned at Not on file Legal Sex Female 10:58 PM EST Gender Identity Not on file Sexual Orientation Not on file documented as of this encounter Plan of Treatment Not on file documented as of this encounter Procedures Procedure Name Priority Date/Time Associated Diagnosis Comments ECHOCARDIOGRAM 05/11/2024 documented in this encounter Results * Echocardiogram (05/11/2024) Narrative 05/11/2024 Ordered by an unspecified provider. us Generic Provider Scanning CV ECHO PROCEDURES Fin al Result documented in this encounter Visit Diagnoses Not on filedocumented in this encounter Care Teams Regional Commercial Sales Manager Relationship Specialty Start Date End Date Jayy Guzman MD [address] [place] [address] PCP - General 03/01/15 documented as of this encounter
--- OUTSIDE RECORDS SUMMARY | 2025-01-18 09:07 | XMS_ITS | Encounter Summary ---
Author Organization [facility] Address [address] [place] [address] Phone Care Team Providers Care Pipe Or Steam Fitter Furnace Installer Name Role Phone Jayy Guzman MD Primary Care Provider Encounter Details Date Type Department Care Team (Late st Contact Info) Description 05/12/2024 Scanned Document [facility] [address] [place] [address] Scanning, Generic Provider Social History Tobacco Use [...] on filedocumented in this encounter Care Teams Pipe Or Steam Fitter Furnace Installer Relationship Specialty Start Date End Date Jayy Guzman MD [address] [place] [address] PCP - General 03/01/15 documented as of this encounter
--- OUTSIDE RECORDS SUMMARY | 2025-01-18 09:07 | XMS_ITS | Encounter Summary ---
Author Organization [facility] Address [address] [place] [address] Care Team Providers Care Apprentice Stylist Name Role Phone Jayy Guzman MD Primary Care Provider [phone] Jayy Guzman MD Unavailable [phone] Zo Tavarez BLASTING CONTRACT MAN Unavailable Marely Seals HUMAN SERVICES MANAGER Unavailable Kandace Harvey HUMAN SERVICES MANAGER Unavailable [phone] Jayy Guzman MD Unavailable [phone] Marcellus Valenzuela DO Unavailable [phone] Marcellus Valenzuela DO Primary Care Provider [phone] Encounter Details Date Type Department Care Team (Late st Contact Info) Description 12/10/2022 Clinisync Result Encounter [facility] Provider, Generic External Data Social History Tobacco [...] Description 02/23/2025 1:20 PM EDT Office Visit [facility] [address] [place] [id number] Marcellus Valenzuela DO [address] [facility] [address] [place] [address] documented as of this encounter Procedures Procedure Name Priority Date/Time Associated Diagnosis Comments NM PET/CT SKULL-THIGH INIT 12/10/2022 2:08 PM EDT documented in this encounter Results * NM PET/CT SKULL-THIGH INIT (12/10/2022 2:08 PM EDT) Anatomical Region Laterality Modality Other 12/10/2022 2:08 PM EDT Narrative 12/12/2022 10:51 AM EDT * * *Final Report* * * DATE OF EXAM: Dec 10 2022 2:08PM NRN [id number] - NM PET/CT SKULL-THIGH INIT / PROCEDURE REASON: Neoplasm of lung * * * * Physician Interpretation * * * * RESULT: FDG PET/CT SCAN: CLINICAL HISTORY: Neoplasm of lung. INDICATION: Initial treatment strategy. TECHNIQUE: 10.8 mCi 18-FDG IV, followed about 1 hour later by PET imaging from base of the skull to proximal femur. Non contrast CT was performed for attenuation correction and anatomic localization purposes. CT Dose-Length Product (DLP): 252 mGy*cm. CT Dose Reduction Employed: Yes BLOOD GLUCOSE: 109 mg/dL Correlation: CT chest abdomen and pelvis dated 11/22/2022 RESULT: NECK: Likely physiological activity in the oral cavity, tonsillar regions, salivary glands. Hypermetabolic right cervical level 2 lymph node measures 1.1 x 1.4 cm (max SUV 6). CHEST: There are aortic and coronary calcifications. Bilateral breast prosthesis. Multiple hypermetabolic mediastinal lymph nodes. For example right paratracheal lymph node measures 2.4 x 2.7 cm (max SUV 44.5), subcarinal lymph node measures 2.2 x 2.2 cm (max SUV 32.3). There is no hypermetabolic axillary lymphadenopathy. Small right pleural effusion. Hypermetabolic medial right upper nodule abutting the mediastinum measures 1.5 x 2.3 cm (max SUV 16.5). Few additional nodules suspicious for metastases. For example mildly hypermetabolic lateral right lung nodule measuring about 1 x 1.5 cm (max SUV 4.6). There is mild diffuse uptake associated with predominantly peripheral interstitial changes in the lungs. ABDOMEN AND PELVIS: The liver is slightly heterogeneous activity but no focal lesions are identified. There are no hypermetabolic foci in the liver, spleen, adrenals. Atrophic right kidney. There is no hypermetabolic abdominal or pelvic lymphadenopathy. Physiologic activity is noted in the liver, renal collecting system, bladder and bowel. Activity adjacent the bilateral hips is likely inflammatory. SKELETON: There are no hypermetabolic osseous lesions. Outside Residential Sales Professional (topogram) images:No additional findings. IMPRESSION: 1. Neck: Hypermetabolic right cervical level [...] process 4. Skeleton: No hypermetabolic osseous lesions Transcribe Date/Time: Dec 10 2022 3:39P Dictated by: MARCIANO CLEMONS MD This examination was interpreted and the report reviewed and electronically signed by: MARCIANO CLEMONS MD on Dec 12 2022 10:49AM EST Thank you for allowing us to participate in the care of your patient. Should there be any questions regarding this interpretation, please call [phone]. If you are unable to reach us at the number above, please feel free to contact [facility] at [phone]. [id number]^[email or web address] * * *Final Report* * * DATE OF EXAM: Dec 10 2022 2:08PM NRN [id number] - NM PET/CT SKULL-THIGH INIT / PROCEDURE REASON: Neoplasm of lung * * * * Physician Interpretation * * * * RESULT: FDG PET/CT SCAN: CLINICAL HISTORY: Neoplasm of lung. INDICATION: Initial treatment strategy. TECHNIQUE: 10.8 mCi 18-FDG IV, followed about 1 hour later by PET imaging from base of the skull to proximal femur. Non contrast CT was performed for attenuation correction and anatomic localization purposes. CT Dose-Length Product (DLP): 252 mGy*cm. CT Dose Reduction Employed: Yes BLOOD GLUCOSE: 109 mg/dL Correlation: CT chest abdomen and pelvis dated 11/22/2022 RESULT: NECK: Likely physiological activity in the oral cavity, tonsillar regions, salivary glands. Hypermetabolic right cervical level 2 lymph node measures 1.1 x 1.4 cm (max SUV 6). CHEST: There are aortic and coronary calcifications. Bilateral breast prosthesis. Multiple hypermetabolic mediastinal lymph nodes. For example right paratracheal lymph node measures 2.4 x 2.7 cm (max SUV 44.5), subcarinal lymph node measures 2.2 x 2.2 cm (max SUV 32.3). There is no hypermetabolic axillary lymphadenopathy. Small right pleural effusion. Hypermetabolic medial right upper nodule abutting the mediastinum measures 1.5 x 2.3 cm (max SUV 16.5). Few additional nodules suspicious for metastases. For example mildly hypermetabolic lateral right lung nodule measuring about 1 x 1.5 cm (max SUV 4.6). There is mild diffuse uptake associated with predominantly peripheral interstitial changes in the lungs. ABDOMEN AND PELVIS: The liver is slightly heterogeneous activity but no focal lesions are identified. There are no hypermetabolic foci in the liver, spleen, adrenals. Atrophic right kidney. There is no hypermetabolic abdominal or pelvic lymphadenopathy. Physiologic activity is noted in the liver, renal collecting system, bladder and bowel. Activity adjacent the bilateral hips is likely inflammatory. SKELETON: There are no hypermetabolic osseous lesions. Outside Residential Sales Professional (topogram) images:No additional findings. IMPRESSION: 1. Neck: Hypermetabolic right cervical level [...] process 4. Skeleton: No hypermetabolic osseous lesions Transcribe Date/Time: Dec 10 2022 3:39P Dictated by: MARCIANO CLEMONS MD This examination was interpreted and the report reviewed and electronically signed by: MARCIANO CLEMONS MD on Dec 12 2022 10:49AM EST Thank you for allowing us to participate in the care of your patient. Should there be any questions regarding this interpretation, please call [phone]. If you are unable to reach us at the number above, please feel free to contact [facility] at [phone]. [id number]^[email or web address] * * *Final Report* * * DATE OF EXAM: Dec 10 2022 2:08PM NRN [id number] - NM PET/CT SKULL-THIGH INIT / PROCEDURE REASON: Neoplasm of lung * * * * Physician Interpretation * * * * RESULT: FDG PET/CT SCAN: CLINICAL HISTORY: Neoplasm of lung. INDICATION: Initial treatment strategy. TECHNIQUE: 10.8 mCi 18-FDG IV, followed about 1 hour later by PET imaging from base of the skull to proximal femur. Non contrast CT was performed for attenuation correction and anatomic localization purposes. CT Dose-Length Product (DLP): 252 mGy*cm. CT Dose Reduction Employed: Yes BLOOD GLUCOSE: 109 mg/dL Correlation: CT chest abdomen and pelvis dated 11/22/2022 RESULT: NECK: Likely physiological activity in the oral cavity, tonsillar regions, salivary glands. Hypermetabolic right cervical level 2 lymph node measures 1.1 x 1.4 cm (max SUV 6). CHEST: There are aortic and coronary calcifications. Bilateral breast prosthesis. Multiple hypermetabolic mediastinal lymph nodes. For example right paratracheal lymph node measures 2.4 x 2.7 cm (max SUV 44.5), subcarinal lymph node measures 2.2 x 2.2 cm (max SUV 32.3). There is no hypermetabolic axillary lymphadenopathy. Small right pleural effusion. Hypermetabolic medial right upper nodule abutting the mediastinum measures 1.5 x 2.3 cm (max SUV 16.5). Few additional nodules suspicious for metastases. For example mildly hypermetabolic lateral right lung nodule measuring about 1 x 1.5 cm (max SUV 4.6). There is mild diffuse uptake associated with predominantly peripheral interstitial changes in the lungs. ABDOMEN AND PELVIS: The liver is slightly heterogeneous activity but no focal lesions are identified. There are no hypermetabolic foci in the liver, spleen, adrenals. Atrophic right kidney. There is no hypermetabolic abdominal or pelvic lymphadenopathy. Physiologic activity is noted in the liver, renal collecting system, bladder and bowel. Activity adjacent the bilateral hips is likely inflammatory. SKELETON: There are no hypermetabolic osseous lesions. Outside Residential Sales Professional (topogram) images:No additional findings. IMPRESSION: 1. Neck: Hypermetabolic right cervical level [...] process 4. Skeleton: No hypermetabolic osseous lesions Transcribe Date/Time: Dec 10 2022 3:39P Dictated by: MARCIANO CLEMONS MD This examination was interpreted and the report reviewed and electronically signed by: MARCIANO CLEMONS MD on Dec 12 2022 10:49AM EST Thank you for allowing us to participate in the care of your patient. Should there be any questions regarding this interpretation, please call [phone]. If you are unable to reach us at the number above, please feel free to contact [facility] at [phone]. [id number]^[email or web address]^ACN Procedure Note Radiology, Radiologist, - 12/24/2022 * * *Final Report* * * DATE OF EXAM: Dec 10 2022 2:08PM NRN [id number] - NM PET/CT SKULL-THIGH INIT / PROCEDURE REASON: Neoplasm of lung * * * * Physician Interpretation * * * * RESULT: FDG PET/CT SCAN: CLINICAL HISTORY: Neoplasm of lung. INDICATION: Initial treatment strategy. TECHNIQUE: 10.8 mCi 18-FDG IV, followed about 1 hour later by PET imaging from base of the skull to proximal femur. Non contrast CT was performed for attenuation correction and anatomic localization purposes. CT Dose-Length Product (DLP): 252 mGy*cm. CT Dose Reduction Employed: Yes BLOOD GLUCOSE: 109 mg/dL Correlation: CT chest abdomen and pelvis dated 11/22/2022 RESULT: NECK: Likely physiological activity in the oral cavity, tonsillar regions, salivary glands. Hypermetabolic right cervical level 2 lymph node measures 1.1 x 1.4 cm (max SUV 6). CHEST: There are aortic and coronary calcifications. Bilateral breast prosthesis. Multiple hypermetabolic mediastinal lymph nodes. For example right paratracheal lymph node measures 2.4 x 2.7 cm (max SUV 44.5), subcarinal lymph node measures 2.2 x 2.2 cm (max SUV 32.3). There is no hypermetabolic axillary lymphadenopathy. Small right pleural effusion. Hypermetabolic medial right upper nodule abutting the mediastinum measures 1.5 x 2.3 cm (max SUV 16.5). Few additional nodules suspicious for metastases. For example mildly hypermetabolic lateral right lung nodule measuring about 1 x 1.5 cm (max SUV 4.6). There is mild diffuse uptake associated with predominantly peripheral interstitial changes in the lungs. ABDOMEN AND PELVIS: The liver is slightly heterogeneous activity but no focal lesions are identified. There are no hypermetabolic foci in the liver, spleen, adrenals. Atrophic right kidney. There is no hypermetabolic abdominal or pelvic lymphadenopathy. Physiologic activity is noted in the liver, renal collecting system, bladder and bowel. Activity adjacent the bilateral hips is likely inflammatory. SKELETON: There are no hypermetabolic osseous lesions. Outside Residential Sales Professional (topogram) images:No additional findings. IMPRESSION: 1. Neck: Hypermetabolic right cervical level [...] process 4. Skeleton: No hypermetabolic osseous lesions Transcribe Date/Time: Dec 10 2022 3:39P Dictated by: MARCIANO CLEMONS MD This examination was interpreted and the report reviewed and electronically signed by: MARCIANO CLEMONS MD on Dec 12 2022 10:49AM EST Thank you for allowing us to participate in the care of your patient. Should there be any questions regarding this interpretation, please call [phone]. If you are unable to reach us at the number above, please feel free to contact [facility] at [phone]. [id number] * * *Final Report* * * DATE OF EXAM: Dec 10 2022 2:08PM NRN [id number] - NM PET/CT SKULL-THIGH INIT / PROCEDURE REASON: Neoplasm of lung * * * * Physician Interpretation * * * * RESULT: FDG PET/CT SCAN: CLINICAL HISTORY: Neoplasm of lung. INDICATION: Initial treatment strategy. TECHNIQUE: 10.8 mCi 18-FDG IV, followed about 1 hour later by PET imaging from base of the skull to proximal femur. Non contrast CT was performed for attenuation correction and anatomic localization purposes. CT Dose-Length Product (DLP): 252 mGy*cm. CT Dose Reduction Employed: Yes BLOOD GLUCOSE: 109 mg/dL Correlation: CT chest abdomen and pelvis dated 11/22/2022 RESULT: NECK: Likely physiological activity in the oral cavity, tonsillar regions, salivary glands. Hypermetabolic right cervical level 2 lymph node measures 1.1 x 1.4 cm (max SUV 6). CHEST: There are aortic and coronary calcifications. Bilateral breast prosthesis. Multiple hypermetabolic mediastinal lymph nodes. For example right paratracheal lymph node measures 2.4 x 2.7 cm (max SUV 44.5), subcarinal lymph node measures 2.2 x 2.2 cm (max SUV 32.3). There is no hypermetabolic axillary lymphadenopathy. Small right pleural effusion. Hypermetabolic medial right upper nodule abutting the mediastinum measures 1.5 x 2.3 cm (max SUV 16.5). Few additional nodules suspicious for metastases. For example mildly hypermetabolic lateral right lung nodule measuring about 1 x 1.5 cm (max SUV 4.6). There is mild diffuse uptake associated with predominantly peripheral interstitial changes in the lungs. ABDOMEN AND PELVIS: The liver is slightly heterogeneous activity but no focal lesions are identified. There are no hypermetabolic foci in the liver, spleen, adrenals. Atrophic right kidney. There is no hypermetabolic abdominal or pelvic lymphadenopathy. Physiologic activity is noted in the liver, renal collecting system, bladder and bowel. Activity adjacent the bilateral hips is likely inflammatory. SKELETON: There are no hypermetabolic osseous lesions. Outside Residential Sales Professional (topogram) images:No additional findings. IMPRESSION: 1. Neck: Hypermetabolic right cervical level [...] process 4. Skeleton: No hypermetabolic osseous lesions Transcribe Date/Time: Dec 10 2022 3:39P Dictated by: MARCIANO CLEMONS MD This examination was interpreted and the report reviewed and electronically signed by: MARCIANO CLEMONS MD on Dec 12 2022 10:49AM EST Thank you for allowing us to participate in the care of your patient. Should there be any questions regarding this interpretation, please call [phone]. If you are unable to reach us at the number above, please feel free to contact [facility] at [phone]. [id number] * * *Final Report* * * DATE OF EXAM: Dec 10 2022 2:08PM NRN [id number] - NM PET/CT SKULL-THIGH INIT / PROCEDURE REASON: Neoplasm of lung * * * * Physician Interpretation * * * * RESULT: FDG PET/CT SCAN: CLINICAL HISTORY: Neoplasm of lung. INDICATION: Initial treatment strategy. TECHNIQUE: 10.8 mCi 18-FDG IV, followed about 1 hour later by PET imaging from base of the skull to proximal femur. Non contrast CT was performed for attenuation correction and anatomic localization purposes. CT Dose-Length Product (DLP): 252 mGy*cm. CT Dose Reduction Employed: Yes BLOOD GLUCOSE: 109 mg/dL Correlation: CT chest abdomen and pelvis dated 11/22/2022 RESULT: NECK: Likely physiological activity in the oral cavity, tonsillar regions, salivary glands. Hypermetabolic right cervical level 2 lymph node measures 1.1 x 1.4 cm (max SUV 6). CHEST: There are aortic and coronary calcifications. Bilateral breast prosthesis. Multiple hypermetabolic mediastinal lymph nodes. For example right paratracheal lymph node measures 2.4 x 2.7 cm (max SUV 44.5), subcarinal lymph node measures 2.2 x 2.2 cm (max SUV 32.3). There is no hypermetabolic axillary lymphadenopathy. Small right pleural effusion. Hypermetabolic medial right upper nodule abutting the mediastinum measures 1.5 x 2.3 cm (max SUV 16.5). Few additional nodules suspicious for metastases. For example mildly hypermetabolic lateral right lung nodule measuring about 1 x 1.5 cm (max SUV 4.6). There is mild diffuse uptake associated with predominantly peripheral interstitial changes in the lungs. ABDOMEN AND PELVIS: The liver is slightly heterogeneous activity but no focal lesions are identified. There are no hypermetabolic foci in the liver, spleen, adrenals. Atrophic right kidney. There is no hypermetabolic abdominal or pelvic lymphadenopathy. Physiologic activity is noted in the liver, renal collecting system, bladder and bowel. Activity adjacent the bilateral hips is likely inflammatory. SKELETON: There are no hypermetabolic osseous lesions. Outside Residential Sales Professional (topogram) images:No additional findings. IMPRESSION: 1. Neck: Hypermetabolic right cervical level [...] process 4. Skeleton: No hypermetabolic osseous lesions Transcribe Date/Time: Dec 10 2022 3:39P Dictated by: MARCIANO CLEMONS MD This examination was interpreted and the report reviewed and electronically signed by: MARCIANO CLEMONS MD on Dec 12 2022 10:49AM EST Thank you for allowing us to participate in the care of your patient. Should there be any questions regarding this interpretation, please call [phone]. If you are unable to reach us at the number above, please feel free to contact [facility] at [phone]. [id number]^[email or web address]^ACN Jayy Guzman MD [facility] Final Result documented in this encounter Visit Diagnoses Not on filedocumented in this encounter Care Teams Apprentice Stylist Relationship Specialty Start Date End Date Jayy Guzman MD [address] [place] [id number] PCP - General Family Medicine 12/28/22 12/16/24 Jayy Guzman MD [address] [place] [address] PCP - Carolynn KEN 01/19/23 06/20/23 Jayy Guzman MD [address] [place] [id number] PCP - Carolynn KNE 02/20/24 Marcellus Valenzuela DO [address] [place] [address] PCP - General Family Medicine 12/17/24 Zo Tavarez LSW [address] [place] [address] Canary Breeder Family Medicine 02/22/23 Marely Seals NP [address] [place] [address] Nurse Practitioner Family Medicine 10/24/23 10/21/24 Kandace Harvey NP [address] [place] [address] Nurse Practitioner Family Medicine 10/24/23 12/16/24 Marcellus Valenzuela DO [address] [place] [address] Referring Physician Family Medicine 05/29/24 documented as of this encounter
--- OUTSIDE RECORDS SUMMARY | 2025-01-18 09:07 | XMS_ITS | Encounter Summary ---
Author Organization [facility] Address [address] [facility] [place] [address] Care Team Providers Care Compressed Gas Equipment Mechanic Name Role Phone Jayy Guzman MD Primary Care Provider [phone] Zo Tavarez COLD ROLL OPERATOR Unavailable Kandace Harvey COMMUNITY RELATIONS SPECIALIST Unavailable Jayy Guzman MD Unavailable [phone] Marcellus Valenzuela DO Unavailable [phone] Marcellus Valenzuela DO Primary Care Provider [phone] Encounter Details Date Type Department Care Team (Late st Contact Info) Description 12/07/2024 Abstract [facility] [address] [place] [address] Marcellus Valenzuela DO [address] [address] [place] [address] Social History Tobacco Use Types Packs/Day Years [...] How often do you attend chur or orthodox services? Patient declined 04/15/2023 Do you belong to any clubs o r organizations such as adventist groups, unions, fraternal or athletic groups, or [...] Recorded Patient Health Questionnaire-2 Score 2 11/09/2024 [facility] of Occupat ional Health - Occupational Stress [...] 02/23/2025 1:20 PM EDT Office [facility] [address], [address] [place] [address] Marcellus Valenzuela DO [address] [facility] [address] [place] [address] documented as of this encounter Visit Diagnoses Not on filedocumented in this encounter Additional Health Concerns Assessment Noted Time PHQ-9 Depression Total Score: 10 024 10:00 AM EDT documented as of this encounter Care Teams Compressed Gas Equipment Mechanic Relationship Specialty Start Date End Date Jayy Guzman MD [address] [place] [address] PCP - General Family Medicine 12/28/22 12/16/24 Jayy Guzman MD [address] [place] [address] PCP - Carolynn [place] 02/20/24 Marcellus Valenzuela DO [address] [place] [address] PCP - General Family Medicine 12/17/24 Zo Tavarez LSW [address] [place] [address] Escrow Assistant Family Medicine 02/22/23 Kandace Harvey NP [address] [place] [address] Nurse Practitioner Family Medicine 10/24/23 12/16/24 Marcellus Valenzuela DO [address] [place] [address] Referring Physician Family Medicine 05/29/24 documented as of this encounter
--- OUTSIDE RECORDS SUMMARY | 2025-01-18 09:07 | XMS_ITS | Encounter Summary ---
Author Organization [facility] Address [address] [facility] [place] [place] [address] Care Team Providers Care Invisible Braces Orthodontist Name Role Phone Jayy Guzman MD Primary Care Provider [phone] Zo Tavarez AIRCRAFT STRUCTURAL DESIGN ENGINEER Unavailable Kandace Harvey INTEGRITY DIRECTOR Unavailable [phone] Jayy Guzman MD Unavailable [phone] Marcellus Valenzuela DO Unavailable [phone] Marcellus Valenzuela DO Primary Care Provider [phone] Encounter Details Date Type Department Care Team (Late st Contact Info) Description 12/09/2024 Orders Only [facility] [address] [place] [address] Kenyetta Murray, TIM-SDS Social History Tobacco Use Types Packs/Day Years [...] How often do you attend chur or mormon services? Patient declined 04/15/2023 Do you belong to any clubs o r organizations such as anglican groups, unions, fraternal or athletic groups, or [...] Recorded Patient Health Questionnaire-2 Score 2 11/09/2024 [facility] [place] of Occupat ional Health - Occupational Stress [...] [facility] [address] [facility] [address] [place] [address] Marcellus Valenzuela DO [address] [facility] [address] [place] [address] documented as of this encounter Visit Diagnoses Not on filedocumented in this encounter Additional Health Concerns Assessment Noted Time PHQ-9 Depression Total Score: 10 024 10:00 AM EDT documented as of this encounter Care Teams Invisible Braces Orthodontist Relationship Specialty Start Date End Date Jayy Guzman MD [address] [place] [address] PCP - General Family Medicine 12/28/22 12/16/24 Jayy Guzman MD [address] [place] [address] PCP - Carolynn KEN 02/20/24 Marcellus Valenzuela DO [address] [place] [address] PCP - General Family Medicine 12/17/24 Zo Tavarez LSW [address] [place] [address] Digester Operator Family Medicine 02/22/23 Kandace Harvey NP [address] [place] [address] Nurse Practitioner Family Medicine 10/24/23 12/16/24 Marcellus Valenzuela DO [address] [place] [address] Referring Physician Family Medicine 05/29/24 documented as of this encounter
--- OUTSIDE RECORDS SUMMARY | 2025-01-18 09:07 | XMS_ITS | Clinical Summary ---
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 Name Role Phone DaysiZo PEDRO Unavailable Jayy Guzman MD Unavailable [phone] Marcellus Valenzuela DO Unavailable [phone] Marcellus Valenzuela DO Primary Care Provider [phone] Allergies Active Allergy Reactions Criticality Noted Date Comments Acetaminophen 05/05/2024 Other Reaction(s): Hypertension Latex Itching,Rash Low 08/13/2023 Other Reaction(s): Rash Morphine Unknown High 09/08/2009 Other Reaction(s): Hallucinating Nickel 05/05/2024 Other Reaction(s): Rash Nsaids 05/05/2024 Other Reaction(s): Hypertension Sulfa Antibiotics Unknown,Anaphylaxis High 1 Medications amiodarone (Pacerone) 200 MG tablet .COMPLEX 05/21/20 24 Active lisinopril 10 MG tabletIndication s:Essential hypertension Take 1 tablet (10 mg) by mouth Daily 90 tablet 10/07/19 25 Active Lokelma 10 g packet Take 10 g by mouth Daily 12/16/19 25 Active ALPRAZolam (Xanax) 0.5 MG tabletIndication s:Anxiety and depression Take 1 tablet (0.5 mg) by mouth in the morning and 1 tablet (0.5 mg) before bedtime. 60 tablet 12/25/19 25 025 Active HYDROcodone-acet aminophen (Jewell) 5-325 MG tabletIndication s:Chronic pain syndrome Take 1 tablet by mouth every 6 (six) hours if needed for severe pain 60 tablet 12/25/19 25 025 Active apixaban (Eliquis) 5 MG tablet Twice daily 05/21/20 24 025 Discontinued( erapy completed) omeprazole (PriLOSEC) [address] capsule Take 20 mg by mouth Daily 05/21/20 24 025 Discontinued( erapy completed) ALPRAZolam (Xanax) 0.5 MG tabletIndication s:Anxiety and depression Take 1 tablet (0.5 mg) by mouth in the morning and 1 tablet (0.5 mg) before bedtime. 60 tablet 10/07/19 25 025 Discontinued(Re order) metoprolol tartrate (Lopressor) 75 MG tabletIndication s:Essential hypertension Take 0.5 tablets (37.5 mg) by mouth in the morning and 0.5 tablets (37.5 mg) before bedtime. 10/27/19 25 025 Discontinued metoprolol tartrate (Lopressor) 75 MG tabletIndication s:Essential hypertension TAKE 1 TABLET BY MOUTH TWICE DAILY IN THE MORNING AND BEFORE BEDTIME 180 tablet 3 12/22/19 25 025 Discontinued( erapy completed) carvedilol (Coreg) 25 MG tablet Take 25 mg by mouth in the morning and 25 mg in the evening. Take with meals. 12/03/19 25 025 Discontinued( erapy completed) HYDROcodone-acet aminophen (Jewell) 5-325 MG tablet Take 1 tablet by mouth every 6 (six) hours if needed for severe pain 025 Discontinued(Re order) Active Problems Problem Noted Date Diagnosed Date Abnormal positron emission tomography of right l beka 05/25/2024 Acute kidney injury superimposed on CKD 05/25/20 24 Acute respiratory failure with hypoxemia 024 Adenocarcinoma of lung 05/25/2024 Altered mental status 05/25/2024 Anxiety 05/25/2024 Claudication of both lower extremities Critical illness myopathy 05/25/2024 Disorder 05/25/2024 Elevated troponin 05/25/2024 Hematoma of neck 05/25/[address] lung nodules on CT 05/25/2024 Pleural effusion 05/25/2024 Polymyalgia rheumatica ([facility]) 05/25/2024 Pulmonary hypertension 05/25/2024 Renal artery stenosis, chuloonawick, bilateral 024 Rheumatoid arthritis 05/25/2024 S/P CABG x 3 05/25/2024 Seizure 05/25/2024 Shortness of breath 05/25/2024 Smoking history 05/25/2024 Hypertensive emergency 05/25/2024 Hypertensive urgency, malignant 05/25/2024 Right-sided extracranial carotid artery stenosis 05/25/2024 Hypertensive crisis 05/25/2024 Transient atrial fibrillation 05/25/2024 Goals of care, counseling/discussion 05/25/2024 Refusal of statin medication by patient 11/29/19 24 Asymptomatic hypertensive urgency 01/28/2023 Atrophy of kidney (terminal) 01/28/2023 Chronic obstructive pulmonary disease, unspecifi ed 01/28/2023 Decreased hearing of both ears 01/28/2023 Anxiety and depression 01/28/2023 Overview (01/28/2023): Not on SSRI at home. Uses xanax for insomnia. Assessment & Plan (12/24/2024 10:00 PM EDT): Pt struggling with grief from husbands recent passing. She is not requesting any medications or counseling at this time. Patient was having a long discussion with me about how she feels she needs some alone time but family has been very much involved in helping take care of her recently which she is grateful for. I advised her that everybody does crave differently and to let us know if there is anything that we can do to help her through this process. She did request refill of Xanax which she has been on chronically. PDMP checked and no red flags Orders: ALPRAZolam (Xanax) 0.5 MG tablet; Take 1 tablet (0.5 mg) by mouth in the morning and 1 tablet (0.5 mg) before bedtime. Assessment & Plan (10/26/2024 2:48 PM EDT): Patient reports mood is okay however her is in home hospice right now but she feels like she is tolerating as well as possible. She is not interested in any medications at this time, continue to follow at subsequent visits History of lung cancer 01/28/2023 Lumbago of lumbar region with sciatica 3 Occlusion and stenosis of unspecified carotid ar kvng 01/28/2023 Other forms of angina pectoris 01/28/2023 Primary lung cancer with met astasis from lung to other site, right 01/15/2023 Assessment & Plan (12/24/2024 10:00 PM EDT): Blood pressure instability 12/25/2022 Opioid use 12/21/2022 NASIR (obstructive sleep apnea) 12/21/2022 Palpitations 12/21/2022 Peripheral vascular disease 12/21/2022 Smoker 12/21/2022 Nephrosclerosis 03/03/2021 Secondary hyperparathyroidism 03/03/2021 Excessive daytime sleepiness 01/30/2021 Anemia of chronic renal failure 12/03/2018 Atherosclerosis of coronary artery without angin a pectoris 12/03/2018 Hypertensive chronic kidney disease with stage 1 through stage 4 chronic kidney disease, or unspecified chronic kidney disease 12/03/2018 Diastolic dysfunction 11/16/2017 Essential hypertension 10/09/2017 Overview (01/28/2023): 09/11/09 - readmitted after CEA with severe refractory hypertension - plan central access and control with SNP/NTG possible reperfusion syndrome. 09/12/2009 Off NTG today. Weaning SNP. Starting labetalol drip. 09/13/2009 d/c SNP, NTG. Increase PO labetalol to 300 TID. d/c IV labetalol. d/c IV hydralazine. Start amlodipine 5mg qdaily. Continue benacar. Pressues better today with fewer fluctuations. Assessment & Plan (12/24/2024 10:00 PM EDT): - BP well controlled in office today. Continue current med regimen. Assessment & Plan (11/09/2024 1:27 PM EDT): - Elevated blood pressure noted, possibly due to pain. - Recommend taking half of lisinopril on days with hypertension like today, preferably when not driving. Assessment & Plan (10/26/2024 2:48 PM EDT): - Blood pressure fluctuates, with low readings post-dialysis and higher readings on non-dialysis days. Concerns about orthostatic hypotension as well raised by patient. - Continue current regimen of taking lisinopril on hypertension days, consider halving the dose on Sundays. Ensure adequate hydration before dialysis. Continue to monitor blood pressure closely Orders: metoprolol tartrate (Lopressor) 75 MG tablet; Take 0.5 tablets (37.5 mg) by mouth in the morning and 0.5 tablets (37.5 mg) before bedtime. Cardiomegaly 05/27/2017 Hypertensive heart disease without congestive he art failure 02/01/2017 Major depression, single episode 02/01/2017 Vitamin D deficiency 08/23/2016 Chronic mastoiditis of left side 07/09/2016 Hearing loss 05/29/2016 Lung cancer 07/05/2015 Chronic fatigue 05/18/2015 Chronic pain syndrome 05/18/2015 Assessment & Plan (12/24/2024 10:00 PM EDT): Pt requested refill on norco for chronic pain, pdmp checked and no red flags, refills sent Orders: HYDROcodone-acetaminophen (Jewell) 5-325 MG tablet; Take 1 tablet by mouth every 6 (six) hours if needed for severe pain Anemia of renal disease 09/11/2009 Overview (01/28/2023): 09/11/09 - III unit PRBC possible GI source. TIA (transient ischemic attack) 09/08/2009 Resolved Problems Problem Noted Date Diagnosed Date Resolved Date Pseudomonas aeruginosa infection 05/25/2024 05/25/2024 Slurred speech 05/25/2024 05/25/2024 BMI 30.0-30.9,adult 01/28/2023 01/29/20 IBS (irritable bowel syndrome) 01/28/2023 04/16/2023 Atherosclerosis of ch[place]ick co ronary artery of chuloonawick heart without angina pectoris 12/21/202204/2023 Obesity (BMI 30.0-34.9) 12/21/202201/19 Difficult intubation 12/21/2022 023 History of carotid endarterectomy 12/21/2022 01/28/2023 Arteriosclerosis of kidney 03/03/2021 0 01/28/2023 Anticoagulant long-term use 12/03/2018 04/16/2023 Paroxysmal atrial fibrillation 12/03/2018 03/13/2024 Class 1 obesity 08/10/2018 01/28/2023 Overweight with body mass in dex (BMI) 25.0-29.9 01/08/2018 01/28/2023 Obesity with body mass index 30 or greater 09/18/2017 01/28/2023 Mixed hyperlipidemia 09/18/2017 024 History of primary malignant neoplasm of lung 12/13/19 17 01/28/2023 Mixed hearing loss, bilateral 10/01/2016 01/28/2023 Generalized anxiety disorder 08/23/2016 01/28/2023 Referral of patient 10/07/2015 01/29/20 23 Cough 08/15/2001 01/28/2023 Encounters Date Type Department Care Team Description 01/07/2025 Abstract [facility] [address] [place] [address] Marcellus Valenzuela DO 01/07/2025 Abstract [facility] [address] [place] [address] Marcellus Valenzuela DO 01/07/2025 Patient Outreach [facility] [address] [place] [address] Zo Tavarez LSW 12/24/2024 1:20 PM EDT Follow-Up [facility] [address] [place] [address] Marcellus Valenzuela DO Lumbar pain (Primary Dx); Grief ; Anxiety and depression ; Essential hypertension ; 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, right (HCC); Chronic diastolic (congestive) heart failure (HCC); Paroxysmal atrial fibrillation (HCC); Chronic pain syndrome; End-stage renal disease on hemodialysis (HCC); Fall, initial encounter 12/24/2024 Travel 12/19/2024 Refill [facility] [address] [place] [address] Jayy Guzman MD Essential hypertension 12/17/2024 Abstract [facility] [address] [place] [address] Marcellus Valenzuela, DO 12/17/2024 Abstract [facility] [address] [place] [address] Jayy Guzman MD 12/16/2024 Abstract [facility] [address] [place] [address] Marcellus Valenzuela, DO 12/14/2024 Clinisync Result Encounter [facility] External Department Unsolicited Provider, Generic External Data 12/09/2024 Orders Only [facility] [address] [place] [address] Kenyetta Murray, TIM-SDS 12/07/2024 Patient Outreach [facility] [address] [place] [address] Zo Tavarez LSW 12/07/2024 Abstract [facility] [address] [place] [address] Marcellus Valenzuela, 12/07/2024 Abstract [facility] [address] [place] [address] Marcellus Valenzuela, 12/03/2024 Telephone [facility] [address] [place] [address] Keara Burgos MA 11/25/2024 Abstract [facility] [address] [place] [address] Jayy Guzman MD 11/16/2024 Telephone [facility] [address] [place] [address] Keara Burgos MA 11/14/2024 Results Follow-Up [facility] [address] [place] [address] Marcellus Valenzuela DO 11/13/2024 12:45 PM EDT Ancillary Procedure [facility] [address] [place] [address] Fall, initial encounter; Lumbar pain 11/13/2024 Travel 11/09/2024 1:00 PM EDT Office Visit [facility] [address] [place] [address] Marcellus Valenzuela DO Fall, initial encounter (Primary Dx); Lumbar pain; Essential hypertension ; Pulmonary hypertension, unspecified (HCC) 11/09/2024 Travel 11/09/2024 Abstract [facility] [address] [place] [address] Jayy Guzman MD [address] [facility] [address] [place] [address] Zo Tavarez LSW 11/04/2024 Abstract [facility] [address] [place] [address] Jayy Guzman MD 11/03/2024 Abstract [facility] [address] [place] [address] Marcellus Valenzuela DO 10/26/2024 1:20 PM EDT Office Visit [facility] [address] [place] [address] Marcellus Valenzuela DO Essential hypertension (Primary Dx); Pulmonary hypertension, unspecified (HCC); Emphysema, unspecified (HCC); Rheumatoid arthritis, unspecified (HCC); Malignant neoplasm of unspecified part of unspecified bronchus or lung (HCC); Anxiety and depression ; End-stage renal disease on hemodialysis (HCC); Hair loss; Atrial fibrillation, unspecified type (HCC) 10/26/2024 Bamboo flowsheet [facility] [address] [place] [address] Marcellus Valenzuela DO 10/26/2024 Travel from Last 3 Months Immunizations Immunization Administration Dates Next Due DT (pediatric) 07/22/1995 Hep B, adult 12/21/1995,08/22/1995,07/22/1995 PPD Test 06/01/2024,05/22/2024 SARS-COV-2 (COVID-19) vaccin e, mRNA, spike protein, LNP, bivalent, preservative free, 30 mcg/0.3 mL dose, tosin-sucrose formulation 04/19/2022 Tdap 03/31/2013 Family History Medical History Relation Name Comments No Known Problems Brother peng 1950 No Known Problems Father peng 93 Alcohol abuse Mother zuhair 64 Lung cancer Sister 1 sadiq 1955 Lung cancer Sister 2 esmer 45 Irritable bowel syndrome Son 1 jory 1972 No Known Problems Son 2 peng 1970 No Known Problems Son 3 mark 1971 No Known Problems Son 4 angel ldob 1973 Relation Name Status Comments Brother peng Alive Father peng Mother zuhair Sister 1 sadiq Alive Sister 2 esmer Son 1 jory Alive Son 2 peng Alive Son 3 mark Alive Son 4 angel Alive Social History Tobacco Use Types Packs/Day Years Used Date Smoking Tobacco: Former Cigarettes Q uit: 06/2023 Smokeless Tobacco: Current Snuff Tobacco Cessation:Ready to Q uit: Not Asked; Counseling Given: Not Answered Alcohol Use Standard Drinks/Week Comments Never 0 [...] any clubs o r organizations such as jehovah's witness groups, unions, fraternal or athletic groups, or [...] Recorded Patient Health Questionnaire-2 Score 0 12/24/2024 [facility] - Occupational Stress Questionnaire Answer Date Recorded [...] Sign Reading Time Taken Comments Blood Pressure 118/66 12/24/2024 1:29 PM EDT Pulse 96 12/24/2024 1:29 PM EDT Temperature 36.8 C (98.2 F) 12/24/2024 1:29 PM EDT Respiratory Rate 20 12/24/2024 1:29 PM EDT Oxygen Saturation 99% 12/24/2024 1:29 PM EDT Inhaled Oxygen Concentration - - Weight 60.8 kg (134 lb) 12/24/2024 1:29 PM EDT Height 160 cm (5' 3 ) 12/24/2024 1:29 PM EDT Body Mass Index 23.74 12/24/2024 1:29 PM EDT Plan of Treatment Upcoming Encounters Date Type Department Care Team (Late st Contact Info) Description 02/23/2025 1:20 PM EDT Office Visit [facility] [address] [place] [address] Nicolas, Marcellus, DO [address] [place] [address] Health Maintenance Due Date Last Done Comments CT Colonography 1950 Colonoscopy 1950 FIT 1950 FOBT 1950 Sigmoidoscopy 1950 FIT-DNA 12/29/2021 12/29/2018, 12/29/2018 Colorectal Cancer Screening 03/12/2025 Postponed from 1950 (Patient Refused) Mammogram 03/12/2025 03/17/2019, 03/17/2019 Postponed from 03/17/2020 (Patient Refused) Pneumococcal Vaccine: 65+ Years (1 of 2 - PCV) 03/12/2025 Postponed from 10/20 (Patient Refused) Influenza Vaccine (Season Ended) 2025 Procedures Procedure Name Priority Date/Time Associated Diagnosis Comments ALL POTASSIUM Routine 12/14/2024 7:27 AM EDT XR LUMBAR SPINE 4+ VIEWS WITH FLEXION EXTENSION Routine 11/13/2024 1:00 PM EDT Fall, initial encounter Lumbar pain BI MAMMOGRAM SCREENING BILATERAL Routine 03/17/2019 Generalized anxiety disorder Body mass index (BMI) 30.0-30.9, adult Encounter for screening mammogram for malignant neoplasm of breast Lumbago with sciatica, unspecified side LAB COLOGUARD COLON CANCER SCREEN Routine 12/29/2018 from Last 3 Months or Most Recently Relevant to Health Maintenance Results * (ABNORMAL) ALL POTASSIUM (12/14/2024 7:27 AM EDT) POTASSIUM 6.5(HH) 3.5 - 5.1 mmol/L TB Comment:RESULTS CALLED TO BE PHOENIX CASIANO RN AT 0905 12/14/2024 7:27 AM EDT 12/14/2024 8:52 AM EDT Narrative [facility] - 12/14/2024 9:05 AM EDT [facility] us Generic External Data Provider SHELBY Mckay inal Result SHELBY [facility] * XR lumbar spine 4+ views w flexion extension (11/13/2024 1:00 PM EDT) Anatomical Region Laterality Modality Spine, L-spine Radiographic Diane ging 11/13/2024 7:15 PM EDT Narrative 11/13/2024 7:15 PM EDT Exam: XR LUMBAR SPINE 4+ VIEWS WITH FLEXION EXTENSION Clinical History: Low back [...] signed and approved by the interpreting Radiologist. Procedure Note Mike Adan MD - 11/13/2024 Exam: XR LUMBAR SPINE 4+ VIEWS WITH FLEXION EXTENSION Clinical History: Low back pain, post fall Reference Exam: No comparison FINDINGS: Lumbar vertebral bodies are of appropriate height. Minor multilevelanterior spondylosis. Disc space height loss most pronounced at L4-L5.Lumbar pedicles are not splayed. Oblique views document no parsinterarticularis defects. Smooth sacrococcygeal arch. Abdominal aorticatherosclerosis and ectasia. Flexion/extension lateral views generate noabnormal motion. Background osteopenia. IMPRESSION: Minor degenerative changes. No acute compression or other fracture. Nosubluxation. No generation of abnormal motion on provocative maneuvers. Dictated on: 11/13/2024 5:13 PM This report has been electronically signed and approved by theinterpreting Radiologist. Marcellus Valenzuela DO IMG XR PROCEDURES Final Result * Bilateral screening mammogram (03/17/2019) Anatomical Region Laterality Modality Breast Bilateral Mammography Impressions 03/17/2019 12:00 AM EDT NO MAMMOGRAPHIC EVIDENCE OF MALIGNANCY. ROUTINE FOLLOW-UP IS RECOMMENDED IN ONE YEAR. RESULT CODE: 2 Benign Findings(s) DENSITY CODE: 1 (<25% glandular) FOLLOW UP: 1YR The false-negative rate of mammography is approximately 10-percent. Management of a palpable abnormality must be based on clinical grounds. Patient was entered into a reminder system with a target due date for the next mammogram. Impression dictated by: Kameron Olivera M.D.03/17/2019 5:37 PM Dictation Location: [facility] Transcribed By: [facility] 03/17/19 173 Dictated By: Kameron Olivera MD 03/17/19 172 Signed By: <Electronically signed by MD Kameron Olivera in OV> 03/17/19 1737 Narrative 03/17/2019 12:00 AM EDT PERFORMED AT [facility] LOCATION:[address] [place] [address] [place] [address] Mammography Report Signed Patient: Lupe Butler MR#: [id number] 1 : 1950 Acct:[id number] Age/Sex: 68 / F ADM Date: 03/17/19 Loc: [place] Room: Type: [facility] Attending Dr: TAZ Glasgow APRN Ordering Provider: Akiko Sánchez APRN, CNP Date of Service: 03/17/19 MM/MM screening mammo BI w/CAD: screening;Screening mammogram, encounter for Copies to: MD Akiko Espino APRN, CNP BILATERAL SCREENING MAMMOGRAMS - FULL FIELD DIGITAL WITH TOMOSYNTHESIS CLINICAL DATA: Screening for malignancy. FINDINGS: Craniocaudal and mediolateral oblique views of both breasts were obtained with Tomosynthesis using low-dose digital technique. Implant displacement views were also obtained. Comparison is made to prior studies on 04/22/2015. This examination was reviewed with the aid of CAD. A mole marker was placed on the left. The breast parenchyma has been largely replaced by fat. A deflated right saline breast implant is again noted. The left saline breast implant is intact. Dense calcifications are demonstrated within the posterior central portion of the right breast probably related to previous rupture silicone breast implant. There are also multiple benign microcalcifications bilaterally. There are no developing masses, typically malignant calcifications or architectural distortion. There has been no significant interval change. MM/MM screening mammo BI w/CAD Procedure Note CONVERSION, GENERIC - 01/25/2023 PERFORMED AT [facility] LOCATION:[address] [place] [address] [place] [address] Mammography Report Signed Patient: Kavya Butler#: [id number] 1 : 1950cct:[id number] Age/Sex: 68 / FADM Date: 03/17/19 Loc: [place] Room:Type: [facility] Attending Dr: Akiko Sánchez APRN, NP-C Ordering Provider: Akiko Sánchez APRN, CNP Date of Service: 03/17/19 MM/MM screening mammo BI w/CAD:screening;Screening mammogram, encounter for Copies to: MD Akiko Espino APRN, CNP BILATERAL SCREENING MAMMOGRAMS - FULL FIELD DIGITAL WITH TOMOSYNTHESIS CLINICAL DATA: Screening for malignancy. FINDINGS: Craniocaudal and mediolateral oblique views of both breastswere obtained with Tomosynthesis using low-dose digital technique. Implant displacementviews were also obtained. Comparison is made to prior studies on 04/22/2015. This examination wasreviewed with the aid of CAD. A mole marker was placed on the left. The breast parenchyma has been largely replaced by fat. A deflated rightsaline breast implant is again noted. The left saline breast implant is intact. Densecalcifications are demonstrated within the posterior central portion of the right breast probably relatedto previous rupture silicone breast implant. There are also multiple benignmicrocalcifications bilaterally. There are no developing masses, typically malignant calcifications or architecturaldistortion. There has been no significant interval change. MM/MM screening mammo BI w/CAD IMPRESSION: NO MAMMOGRAPHIC EVIDENCE OF MALIGNANCY. ROUTINE FOLLOW-UP IS RECOMMENDED IN ONE YEAR. RESULT CODE: 2 Benign Findings(s) DENSITY CODE: 1 (<25% glandular) FOLLOW UP: 1YR The false-negative rate of mammography is approximately 10-percent. Management of a palpable abnormality must be based on clinical grounds. Patient was entered into a reminder system with a target due date for thenext mammogram. Impression dictated by: Kameron Olivera M.D.03/17/2019 5:37 PM Dictation Location: [facility] Transcribed By: ZEFERINO 03/17/19 173 Dictated By: Kameron Olivera MD 03/17/19 172 Signed By: <Electronically signed by MD Kameron Olivera in OV> 03/17/191736 us Akiko Zeinab Sánchez BIRDCAGE ASSEMBLER IMG BI PROCEDURES Final Resu lt * Cologuard?? colon cancer screening (12/29/2018) COLOGUARD RESULT REPORTABLE Negative Not Applicable [facility] Comment: A negative result indicates a low likelihood that a colorectal cancer (CRC) or an advanced adenoma (adenomatous polyps with more advanced pre-malignant features) is present. The chance that a person with a negative Cologuard test has a colorectal cancer is less than 1 in 1500 (negative predictive value >99.9%) or has an advanced adenoma is less than 5.3% (negative predictive value 94.7%). These data are based on a prospective cross-sectional screening study of 10,000 individuals at average risk for colorectal cancer who were screened with both Cologuard and colonoscopy. (Shawna Mckenzie et al, N Engl J Med 2014;370(14):2500-9333) COLOGUARD RE-SCREENING RECOMMENDATION: Periodic routine colorectal cancer screening is an important part of preventive healthcare for asymptomatic persons at average risk for colorectal cancer. Following a negative Cologuard result, the [employer] and U.S. Multi-Society Task Force screening guidelines recommend a Cologuard re-screening interval of 3 years. References: [employer] (ACS). Colorectal cancer prevention and early detection. [place], [place]: [employer]; [updated 2015Nov 12]. https://www.cancer.org/cancer/hdxbx-wxxone-vgymnn/eqiuiqwql-nbtnirtvb-kykzgjh/ac s-rec ommendations.html. Accessed March 21, 2018; Cl PHILLIP, Kirstin ZAPATA, Dominitz JK, Colorectal Cancer Screening: Recommendations for Physicians and Patients from the U.S. Multi-Society Task Force on Colorectal Cancer Screening, Am J Gastroenterology 2017; 112:4680-3053. Test Type: Composite algorithmic analysis of stool DNA-biomarkers with hemoglobin immunoassay. Quantitative values of individual biomarkers are not reportable and are not associated with individual biomarker result reference ranges. Precautions and Limitations: Cologuard is intended for colorectal cancer screening of adults of either sex, 50 years or older, who are at typical average-risk for colorectal cancer. A negative Cologuard test result does not guarantee the absence of colorectal cancer or advanced adenoma (pre-cancer). Patients with a negative Cologuard test result should be advised to continue participating in a colorectal cancer screening program. Cologuard may produce a positive result, even though a colonoscopy may not find colorectal cancer or precancerous polyps. The performance of Cologuard has been established in a cross sectional study (i.e., single point in time). Performance has not been evaluated in adults who have been previously tested with Cologuard or in patients less than 50 years of age. Cologuard has been approved for use by the U.S. FDA. Cologuard performance data in a 10,000 patient pivotal study using colonoscopy as the reference method can be accessed at the following location: www.Gem/results. Additional description of the Cologuard test process, warnings and precautions can be found at www.cologuardtest.com. Rx Only. 12/29/2018 Akiko Sánchez NP LAB MOLECULAR DIAGNOSTICS OR DERABLES Final Result [facility] from Last 3 Months or Most Recently Relevant to Health Maintenance Insurance [facility] MEDICARE ADVANTAGE Care Teams Household Refrigerator Mechanic Relationship Specialty Start Date End Date Jayy Guzman MD [address] [place] [address] PCP - Carolynn KEN 02/20/24 Marcellus Valenzuela DO [address] [place] [address] PCP - General Family Medicine 12/17/24 Zo Tavarez LSW [address] [place] [address] Pmo Consultant Family Medicine 02/22/23 Marcellus Valenzuela DO [address] [place] [address] Referring Physician Family Medicine 05/29/24
--- OUTSIDE RECORDS SUMMARY | 2025-01-18 09:07 | XMS_ITS | Encounter Summary ---
Author Organization [facility] Address [address] [place] [address] Phone Care Team Providers Care Tile Layer Name Role Phone Jayy Guzman MD Primary Care Provider [phone] Encounter Details Date Type Department Care Team (Late st Contact Info) Description 05/25/2024 Scanned Document [facility] [address] [place] [address] Scanning, Generic Provider Social History Tobacco Use [...] Procedure Name Priority Date/Time Associated Diagnosis Comments OUTSIDE IMAGING SCAN 05/25/2024 documented in this encounter Results * OUTSIDE IMAGING SCAN (05/25/2024) Anatomical Region Laterality Modality Other Narrative 05/25/2024 Ordered by an unspecified provider. us Generic Provider Scanning OUTSIDE SCAN Final Result documented in this encounter Visit Diagnoses Not on filedocumented in this encounter Care Teams Tile Layer Relationship Specialty Start Date End Date Jayy Guzman MD [address] [place] [address] PCP - General 03/01/15 documented as of this encounter
--- OUTSIDE RECORDS SUMMARY | 2025-01-18 09:07 | XMS_ITS | Encounter Summary ---
Author Organization [facility] Address [address] [place] [address] Care Team Providers Care Infantry Weapons Crewmember Name Role Phone Jayy Guzman MD Primary Care Provider [phone] Jayy Guzman MD Unavailable [phone] Zo Tavarez RIVETER PNEUMATIC Unavailable Marely Seals HUMAN RESOURCES ASSISTANT MANAGER Unavailable Kandace Harvey HUMAN RESOURCES ASSISTANT MANAGER Unavailable [phone] Jayy Guzman MD Unavailable [phone] Marcellus Valenzuela DO Unavailable [phone] Marcellus Valenzuela DO Primary Care Provider [phone] Encounter Details Date Type Department Care Team (Late st Contact Info) Description 12/21/2022 Clinisync Result Encounter [facility] External Department Unsolicited Jayy Guzman MD [address] [place] [address] Social History Tobacco Use Types Packs/Day Years [...] [facility] [address] [place] [address] NicolasMarcellus kang, DO [address] [place] [address] documented as of this encounter Procedures Procedure Name Priority Date/Time Associated Diagnosis Comments ECG01 12/21/2022 11:51 AM EDT documented in this encounter Results * ECG01 (12/21/2022 11:51 AM EDT) Anatomical Region Laterality Modality Other 12/21/2022 11:5 1 AM EDT Narrative 12/26/2022 12:56 PM EDT Ventricular Rate : 58 BPM Atrial Rate : 58 BPM P-R Interval : 146 ms QRS Duration : 84 ms Q-T Interval : 464 ms QTC Calculation(Bazett) : 455 ms Calculated P Kilbourne : 71 degrees Calculated R Kilbourne : 26 degrees Calculated T Kilbourne : 142 degrees SINUS BRADYCARDIA RIGHT ATRIAL ENLARGEMENT LEFT VENTRICULAR HYPERTROPHY WITH REPOLARIZATION ABNORMALITY ABNORMAL ECG Confirmed by TIMOTHY ARIAS M.D. ([id number]) on 12/26/2022 12:52:40 PM NAME : LUPE ACUNA PID : [id number] : 1950 Gender : Female Race : ORD : Procedure Date : Dec 21 2022 11:51:18 Edit Date : Dec 26 2022 12:56:19 Diagnosis: SINUS BRADYCARDIA RIGHT ATRIAL ENLARGEMENT LEFT VENTRICULAR HYPERTROPHY WITH REPOLARIZATION ABNORMALITY ABNORMAL ECG Confirmed by TIMOTHY ARIAS M.D. ([id number]) on 12/26/2022 12:52:40 PM Test Reason : Location : 539 : [facility] [place] By : TIMOTHY ARIAS M.D. Edited By : TIMOTHY ARIAS M.D. Referred By : FINA ARNOLD Acquired by : SCOOBY Procedure Note Radiology, Radiologist, - 12/26/2022 Ventricular Rate : 58 BPM Atrial Rate : 58 BPM P-R Interval : 146 ms QRS Duration : 84 ms Q-T Interval : 464 ms QTC Calculation(Bazett) : 455 ms Calculated P Kilbourne : 71 degrees Calculated R Kilbourne : 26 degrees Calculated T Kilbourne : 142 degrees SINUS BRADYCARDIA RIGHT ATRIAL ENLARGEMENT LEFT VENTRICULAR HYPERTROPHY WITH REPOLARIZATION ABNORMALITY ABNORMAL ECG Confirmed by TIMOTHY ARIAS M.D. ([id number]) on 12/26/2022 12:52:40 PM NAME : LUPE ACUNA PID : [id number] : 1950 Gender : Female Race : ORD : Procedure Date : Dec 21 2022 11:51:18 Edit Date : Dec 26 2022 12:56:19 Diagnosis: SINUS BRADYCARDIA RIGHT ATRIAL ENLARGEMENT LEFT VENTRICULAR HYPERTROPHY WITH REPOLARIZATION ABNORMALITY ABNORMAL ECG Confirmed by TIMOTHY ARIAS M.D. ([id number]) on 12/26/2022 12:52:40 PM Test Reason : Location : 53 : [facility] [place] Overread By : TIMOTHY ARIAS M.D. Edited By : TIMOTHY ARIAS M.D. Referred By : FINA ARNOLD Acquired by : SCOOBY, Jayy Guzman MD [facility] Final Result documented in this encounter Visit Diagnoses Not on filedocumented in this encounter Care Teams Infantry Weapons Crewmember Relationship Specialty Start Date End Date Jayy Guzman MD [address] [place] [address] PCP - General Family Medicine 12/28/22 12/16/24 Jayy Guzman MD [address] [place] [address] PCP - Carolynn KEN 01/19/23 06/20/23 Jayy Guzman MD [address] [place] [address] PCP - Carolynn KEN 02/20/24 Marcellus Valenzuela DO [address] [place] [address] PCP - General Family Medicine 12/17/24 Zo Tavarez LSW [address] [place] [address] Coding Compliance Auditor Family Medicine 02/22/23 Marely Seals NP [address] [place] [address] Nurse Practitioner Family Medicine 10/24/23 10/21/24 Kandace Harvey NP [address] [place] [address] Nurse Practitioner Family Medicine 10/24/23 12/16/24 Marcellus Valenzuela DO [address] [place] [address] Referring Physician Family Medicine 05/29/24 documented as of this encounter
--- OUTSIDE RECORDS SUMMARY | 2025-01-18 09:07 | XMS_ITS | Encounter Summary ---
Author Organization [facility] Address [address] [place] [address] Care Team Providers Care String Top Sealer Name Role Phone Jayy Guzman MD Primary Care Provider [phone] Jayy Guzman MD Unavailable [phone] Zo Tavarez VALIDATION ARCHITECT Unavailable Marely Seals NP Unavailable Kandace Harvey BAG BLEACHER Unavailable [phone] Jayy Guzman MD Unavailable [phone] Marcellus Valenzuela DO Unavailable [phone] Marcellus Valenzuela DO Primary Care Provider [phone] Encounter Details Date Type Department Care Team (Late st Contact Info) Description 06/04/2023 Abstract [facility] [address] [place] [id number] Jayy Gumzan MD [address] [place] [address] Social History Tobacco Use Types Packs/Day Years [...] How often do you attend chur or christianity services? Patient declined 04/15/2023 Do you belong to any clubs o r organizations such as catholic groups, unions, fraternal or athletic groups, [...] Recorded Patient Health Questionnaire-2 Score 0 01/28/2023 [facility] [place] of Occupat ional Health - Occupational Stress [...] suspected to have Coronavirus/COVID-19? No / Unsure 05/21/2023 10:21 AM EDT documented as of this encounter Plan of Treatment Upcoming Encounters Date Type Department Care Team (Late st Contact Info) Description 02/23/2025 1:20 PM EDT [facility] [address] [place] [address] Marcellus Valenzuela, [address] [place] [address] documented as of this encounter Visit Diagnoses Not on filedocumented in this encounter Care Teams String Top Sealer Relationship Specialty Start Date End Date Jayy Guzman MD [address] [place] [address] PCP - General Family Medicine 12/28/22 12/16/24 Jayy Guzman MD [address] [place] [address] PCP - Carolynn KEN 01/19/23 06/20/23 Jayy Guzman MD [address] [place] [address] PCP - Carolynn KEN 02/20/24 Marcellus Valenzuela DO [address] [place] [address] PCP - General Family Medicine 12/17/24 Zo Tavarez LSW [address] [place] [address] Ground Crewman Mission Support Family Medicine 02/22/23 Marely Seals NP [address] [place] [address] Nurse Practitioner Family Medicine 10/24/23 10/21/24 Kandace Harvey NP [address] [place] [address] Nurse Practitioner Family Medicine 10/24/23 12/16/24 Marcellus Valenzuela DO [address] [place] [address] Referring Physician Family Medicine 05/29/24 documented as of this encounter
--- OUTSIDE RECORDS SUMMARY | 2025-01-18 09:07 | XMS_ITS | Encounter Summary ---
Author Organization [facility] Address [address] [facility] [place] [address] Care Team Providers Care Food And Drug Inspector Name Role Phone Jayy Guzman MD Primary Care Provider [phone] Zo Tavarez STIFF NECK LOADER Unavailable Marely Seals NP Unavailable Kandace Harvey FLORAL ARRANGER Unavailable [phone] Jayy Guzman MD Unavailable [phone] Marcellus Valenzuela DO Unavailable [phone] Marcellus Valenzuela DO Primary Care Provider [phone] Encounter Details Date Type Department Care Team (Late st Contact Info) Description 06/26/2023 Abstract [facility] [address] [place] [address] Jayy Guzman MD [address] [place] [address] Social History Tobacco Use Types Packs/Day Years [...] declined 04/15/2023 How often do you attend [facility] or evangelical services? Patient declined 04/15/2023 Do you belong to any clubs o r organizations such as yazidi groups, unions, fraternal or athletic groups, or [...] Recorded Patient Health Questionnaire-2 Score 0 01/28/2023 [facility] [place] of Occupat ional Health - Occupational Stress [...] 02/23/2025 1:20 PM EDT Office Visit [facility] [address] [facility] [address] [place] [address] Marcellus Valenzuela DO [address] [facility] [address] [place] [address] documented as of this encounter Visit Diagnoses Not on filedocumented in this encounter Care Teams Food And Drug Inspector Relationship Specialty Start Date End Date Jayy Guzman MD [address] [place] [address] PCP - General Family Medicine 12/28/22 12/16/24 Jayy Guzman MD [address] [place] [address] PCP - Carolynn KEN 02/20/24 Marcellus Valenzuela DO [address] [place] [address] PCP - General Family Medicine 12/17/24 Zo Tavarez LSW [address] [place] [address] Electronic Train Control Technician Family Medicine 02/22/23 Marely Seals NP [address] [place] [address] Nurse Practitioner Family Medicine 10/24/23 10/21/24 Kandace Harvey NP [address] [place] [address] Nurse Practitioner Family Medicine 10/24/23 12/16/24 Marcellus Valenzuela DO [address] [place] [address] Referring Physician Family Medicine 05/29/24 documented as of this encounter
--- OUTSIDE RECORDS SUMMARY | 2025-01-18 09:07 | XMS_ITS | Encounter Summary ---
Author Organization [facility] Address [address] [place] [address] Care Team Providers Care Dust Mop Maker Name Role Phone Jayy Guzman MD Primary Care Provider [phone] Zo Tavarez PUBLIC HEALTH ADMINISTRATOR Unavailable Marely Seals NP Unavailable Kandace Harvey COMPUTER SYSTEMS SOFTWARE ARCHITECT Unavailable [phone] Jayy Guzman MD Unavailable [phone] Marcellus Valenzuela DO Unavailable [phone] Marcellus Valenzuela DO Primary Care Provider [phone] Encounter Details Date Type Department Care Team (Late st Contact Info) Description 07/12/2023 Clinisync Result Encounter [facility] External Department Unsolicited [...] How often do you attend chur or jewish services? Patient declined 04/15/2023 Do you belong to any clubs o r organizations such as adventism groups, unions, fraternal or athletic groups, or [...] Recorded Patient Health Questionnaire-2 Score 0 01/28/2023 [facility] of Occupat ional Health - Occupational [...] Description 02/23/2025 1:20 PM EDT Office Visit [facility] [address] [facility], [address] [phone] Marcellus Valenzuela DO [address] [facility] [address] [place] [address] documented as of this encounter Procedures Procedure Name Priority Date/Time Associated Diagnosis Comments CT CHEST W IV CONTRAST 07/12/2023 2:17 PM EST documented in this encounter Results * CT chest w IV contrast (07/12/2023 2:17 PM EST) Anatomical Region Laterality Modality Body, Chest Computed Tomogra phy 07/12/2023 2:17 PM EST Narrative 07/16/2023 11:19 AM EST * * *Final Report* * * DATE OF EXAM: Jul 12 2023 2:17PM [facility] 0539 - CT CHEST W IVCON / PROCEDURE REASON: 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, right (HCC) * * * * Physician Interpretation * * * * RESULT: EXAMINATION: CHEST CT WITHOUT CONTRAST CLINICAL HISTORY: Lung carcinoma Technique: Spiral CT acquisition of the chest from the thoracic inlet to the upper abdomen without contrast. MQ: CTCWOR_4 CT Dose-Length Product: 309 mGy*cm CT Dose Reduction Employed: Automated exposure control (AEC) Comparison: CT chest 04/16/2023 RESULT: Limitations: None. Lines, tubes, and devices: None. Lung parenchyma , airways, and pleural space: Moderately severe centrilobular emphysematous changes, bibasilar subpleural interstitial reticulation and associated honeycombing, stable. The trachea and major airways appear patent. Postoperative changes, compatible with prior left upper lobectomy, postoperative changes involving the right lung, unchanged. Scattered bilateral areas of atelectasis/scarring, unchanged. Trace right pleural effusion, stable. Nodular opacity within the right upper lobe adjacent to surgical suture line has decreased in size, now measuring approximately 0.6 x 0.6 cm, previously 1.2 x 0.9 cm, image 54, series 9. Several additional 7 mm or less right-sided nodules, for example, images 33, 36, 38, 47, 61, series 4, stable. Lower neck, lymph nodes, and mediastinum: The visualized thyroid gland is stable. No substantial supraclavicular or axillary lymphadenopathy is identified. Precarinal adenopathy measuring 1.5 x 1.4 cm, stable. Subcarinal adenopathy measuring 2.1 x 1.1 cm, stable. Right hilar adenopathy measuring approximately 1.4 x 1.2 cm, unchanged. Postoperative changes of left hilum, no substantial left hilar adenopathy is identified. Heart, pericardium, and thoracic vessels: The thoracic aorta is normal in caliber. No substantial pericardial effusion. Coronary artery calcification is again noted. Bones/Soft Tissues: Degenerative change involving the thoracic spine is again appreciated. No osseous destructive process is appreciated. Postoperative changes, compatible with prior median sternotomy. Bilateral breast implants are noted, the right implant is collapsed, unchanged. Upper Abdomen: Limited images through the upper abdomen are stable. Thickening of the left adrenal gland, atrophic changes of the right kidney, stable. Right-sided nonobstructive nephrolithiasis, cholelithiasis is again noted. Charge Rn (topogram) images: No additional findings. IMPRESSION: 1. 6 mm right upper lobe nodular opacity adjacent to surgical suture material has decreased in size, as above. 2. Several additional right-sided pulmonary nodules, unchanged. 3. Mediastinal and right hilar adenopathy, stable. Transcribe Date/Time: Jul 16 2023 7:47A Dictated by: FLAKITA MURPHY MD This examination was interpreted and the report reviewed and electronically signed by: FLAKITA MURPHY MD on Jul 16 2023 11:17AM EST Thank you for allowing us to participate in the care of your patient. Should there be any questions regarding this interpretation, please call [phone]. If you are unable to reach us at the number above, please feel free to contact [facility] at [phone]. [id number] Procedure Note Radiology, Radiologist, - 07/16/2023 * * *Final Report* * * DATE OF EXAM: Jul 12 2023 2:17PM [facility] 0539 - CT CHEST W IVCON / PROCEDURE REASON: 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, right (HCC) * * * * Physician Interpretation * * * * RESULT: EXAMINATION: CHEST CT WITHOUT CONTRAST CLINICAL HISTORY: Lung carcinoma Technique: Spiral CT acquisition of the chest from the thoracic inlet to the upper abdomen without contrast. MQ: CTCWOR_4 CT Dose-Length Product: 309 mGy*cm CT Dose Reduction Employed: Automated exposure control (AEC) Comparison: CT chest 04/16/2023 RESULT: Limitations: None. Lines, tubes, and devices: None. Lung parenchyma , airways, and pleural space: Moderately severe centrilobular emphysematous changes, bibasilar subpleural interstitial reticulation and associated honeycombing, stable. The trachea and major airways appear patent. Postoperative changes, compatible with prior left upper lobectomy, postoperative changes involving the right lung, unchanged. Scattered bilateral areas of atelectasis/scarring, unchanged. Trace right pleural effusion, stable. Nodular opacity within the right upper lobe adjacent to surgical suture line has decreased in size, now measuring approximately 0.6 x 0.6 cm, previously 1.2 x 0.9 cm, image 54, series 9. Several additional 7 mm or less right-sided nodules, for example, images 33, 36, 38, 47, 61, series 4, stable. Lower neck, lymph nodes, and mediastinum: The visualized thyroid gland is stable. No substantial supraclavicular or axillary lymphadenopathy is identified. Precarinal adenopathy measuring 1.5 x 1.4 cm, stable. Subcarinal adenopathy measuring 2.1 x 1.1 cm, stable. Right hilar adenopathy measuring approximately 1.4 x 1.2 cm, unchanged. Postoperative changes of left hilum, no substantial left hilar adenopathy is identified. Heart, pericardium, and thoracic vessels: The thoracic aorta is normal in caliber. No substantial pericardial effusion. Coronary artery calcification is again noted. Bones/Soft Tissues: Degenerative change involving the thoracic spine is again appreciated. No osseous destructive process is appreciated. Postoperative changes, compatible with prior median sternotomy. Bilateral breast implants are noted, the right implant is collapsed, unchanged. Upper Abdomen: Limited images through the upper abdomen are stable. Thickening of the left adrenal gland, atrophic changes of the right kidney, stable. Right-sided nonobstructive nephrolithiasis, cholelithiasis is again noted. Charge Rn (topogram) images: No additional findings. IMPRESSION: 1. 6 mm right upper lobe nodular opacity adjacent to surgical suture material has decreased in size, as above. 2. Several additional right-sided pulmonary nodules, unchanged. 3. Mediastinal and right hilar adenopathy, stable. Transcribe Date/Time: Jul 16 2023 7:47A Dictated by: FLAKITA MURPHY MD This examination was interpreted and the report reviewed and electronically signed by: FLAKITA MURPHY MD on Jul 16 2023 11:17AM EST Thank you for allowing us to participate in the care of your patient. Should there be any questions regarding this interpretation, please call [phone]. If you are unable to reach us at the number above, please feel free to contact [facility] at [phone]. [id number] us Generic External Data Provider IMG CT PROCEDURES Final Result documented in this encounter Visit Diagnoses Not on filedocumented in this encounter Care Teams Dust Mop Maker Relationship Specialty Start Date End Date Jayy Guzman MD [address] [place] [address] PCP - General Family Medicine 12/28/22 12/16/24 Jayy Guzman MD [address] [place] [address] PCP - Carolynn KEN 02/20/24 Marcellus Valenzuela DO [address] [place] [address] PCP - General Family Medicine 12/17/24 Zo Tavarez LSW [address] [place] [address] Bleach Plant Operator Family Medicine 02/22/23 Marely Seals NP [address] [place] [address] Nurse Practitioner Family Medicine 10/24/23 10/21/24 Kandace Harvey NP [address] [place] [address] Nurse Practitioner Family Medicine 10/24/23 12/16/24 Marcellus Valenzuela DO [address] [place] [address] Referring Physician Family Medicine 05/29/24 documented as of this encounter
--- OUTSIDE RECORDS SUMMARY | 2025-01-18 09:07 | XMS_ITS | Encounter Summary ---
Author Organization [facility] Address [address] [place] [address] Care Team Providers Care Computer Network Engineer Name Role Phone Jayy Guzman MD Primary Care Provider [phone] Jayy Guzman MD Unavailable [phone] Zo Tavarez VOCATIONAL EDUCATION TEACHER Unavailable Marely Seals NP Unavailable Kandace Harvey SUPERVISOR ORDER TAKERS Unavailable [phone] Jayy Guzman MD Unavailable [phone] Marcellus aVlenzuela DO Unavailable [phone] Marcellus Valenzuela DO Primary Care Provider [phone] Encounter Details Date Type Department Care Team [...] often do you attend chur ch or sikhism services? Patient declined 04/15/2023 Do you belong to any clubs o r organizations such as sabianist groups, unions, fraternal or athletic groups, or [...] Recorded Patient Health Questionnaire-2 Score 0 01/28/2023 [facility] [place] of Occupat ional Health - Occupational Stress [...] a detention (including now)? No 04/15/2023 Comments Unknown Sex [...] Description 02/23/2025 1:20 PM EDT Office Visit [facility] [address] [place] [address] Marcellus Valenzuela DO [address] [place] [address] documented as of this encounter Procedures Procedure Name Priority Date/Time Associated Diagnosis Comments CT ABD/PEL W IVCON 04/16/2023 9: 17 AM EDT documented in this encounter Results * CT ABD/PEL W IVCON (04/16/2023 9:17 AM EDT) Anatomical Region Laterality Modality Other 04/16/2023 9:17 AM EDT Narrative 04/16/2023 11:47 AM EDT * * *Final Report* * * DATE OF EXAM: Apr 16 2023 9:17AM [facility] 0530 - CT ABD/PEL W IVCON / PROCEDURE REASON: Malignant neoplasm of lung, unspecified laterality, unspecified part of lung (HC * * * * Physician Interpretation * * * * RESULT: EXAMINATION: CT ABDOMEN AND PELVIS WITH IV CONTRAST CLINICAL HISTORY: Lung cancer. TECHNIQUE: CT of the abdomen and pelvis was performed using standard technique, scanning from just above the dome of the diaphragm to the symphysis pubis. MQ: CTAP_3 Contrast: IV: 150 ml of Omnipaque 300 Oral: 500 ml of Omni 240 10-25ml diluted with water CT Radiation dose: Integrated Dose-length product (DLP) for this visit = 1181 mGy*cm. CT Dose Reduction Employed: Automated exposure control (AEC) COMPARISON: CT the abdomen pelvis without contrast from 11/22/2022 and PET/CT from 12/10/2022 RESULT: Liver: Normal with normal variant focal fatty infiltration along the falciform ligament. Biliary: No bile duct dilation. Cholelithiasis with small stone in the fundus of the gallbladder. Spleen: No mass. No splenomegaly. Pancreas: No mass or duct dilation. Adrenals: Stable minimal thickening of the left adrenal gland which may be due to adenomatous hyperplasia. Kidneys: Marked atrophy of the right kidney. 4 mm nonobstructing calculus in the upper pole of the right kidney. Mild left renal cortical atrophy. GI tract: No dilation or wall thickening. Lymph nodes: No abdominal or pelvic lymphadenopathy. Mesentery/Peritoneum: No ascites or mass. Vasculature: Moderate to marked atherosclerosis of the abdominal aorta and iliac vessels with high-grade stenosis or occlusion of the external iliac arteries. Pelvis: No mass, ascites or fluid collection. Bones/Soft Tissues: Degenerative changes. Lower thorax: A chest CT performed will be reported separately. Machine Burrer (topogram) images: Median sternotomy wires. IMPRESSION: 1. No metastatic disease detected within the abdomen or pelvis. Transcribe Date/Time: Apr 16 2023 11:37A Dictated by: JACKSON PARR MD This examination was interpreted and the report reviewed and electronically signed by: JACKSON PARR MD on Apr 16 2023 11:45AM EST Thank you for allowing us to participate in the care of your patient. Should there be any questions regarding this interpretation, please call [phone]. If you are unable to reach us at the number above, please feel free to contact [facility] at [phone]. [id number] Procedure Note Radiology, Radiologist, - 04/16/2023 * * *Final Report* * * DATE OF EXAM: Apr 16 2023 9:17AM [facility] 0530 - CT ABD/PEL W IVCON / PROCEDURE REASON: Malignant neoplasm of lung, unspecified laterality, unspecified part of lung (HC * * * * Physician Interpretation * * * * RESULT: EXAMINATION: CT ABDOMEN AND PELVIS WITH IV CONTRAST CLINICAL HISTORY: Lung cancer. TECHNIQUE: CT of the abdomen and pelvis was performed using standard technique, scanning from just above the dome of the diaphragm to the symphysis pubis. MQ: CTAP_3 Contrast: IV: 150 ml of Omnipaque 300 Oral: 500 ml of Omni 240 10-25ml diluted with water CT Radiation dose: Integrated Dose-length product (DLP) for this visit = 1181 mGy*cm. CT Dose Reduction Employed: Automated exposure control (AEC) COMPARISON: CT the abdomen pelvis without contrast from 11/22/2022 and PET/CT from 12/10/2022 RESULT: Liver: Normal with normal variant focal fatty infiltration along the falciform ligament. Biliary: No bile duct dilation. Cholelithiasis with small stone in the fundus of the gallbladder. Spleen: No mass. No splenomegaly. Pancreas: No mass or duct dilation. Adrenals: Stable minimal thickening of the left adrenal gland which may be due to adenomatous hyperplasia. Kidneys: Marked atrophy of the right kidney. 4 mm nonobstructing calculus in the upper pole of the right kidney. Mild left renal cortical atrophy. GI tract: No dilation or wall thickening. Lymph nodes: No abdominal or pelvic lymphadenopathy. Mesentery/Peritoneum: No ascites or mass. Vasculature: Moderate to marked atherosclerosis of the abdominal aorta and iliac vessels with high-grade stenosis or occlusion of the external iliac arteries. Pelvis: No mass, ascites or fluid collection. Bones/Soft Tissues: Degenerative changes. Lower thorax: A chest CT performed will be reported separately. Machine Burrer (topogram) images: Median sternotomy wires. IMPRESSION: 1. No metastatic disease detected within the abdomen or pelvis. Transcribe Date/Time: Apr 16 2023 11:37A Dictated by: JACKSON PARR MD This examination was interpreted and the report reviewed and electronically signed by: JACKSON PARR MD on Apr 16 2023 11:45AM EST Thank you for allowing us to participate in the care of your patient. Should there be any questions regarding this interpretation, please call [phone]. If you are unable to reach us at the number above, please feel free to contact [facility] at [phone]. [id number] us Generic External Data Provider [facility] Final Result documented in this encounter Visit Diagnoses Not on filedocumented in this encounter Care Teams Computer Network Engineer Relationship Specialty Start Date End Date Jayy Guzman MD [address] [place] [address] PCP - General Family Medicine 12/28/22 12/16/24 Jayy Guzman MD [address] [place] [address] PCP - Carolynn KEN 01/19/23 06/20/23 Jayy Guzman MD [address] [place] [address] PCP - Carolynn KEN 02/20/24 Marcellus Valenzuela DO [address] [place] [address] PCP - General Family Medicine 12/17/24 Zo Taavrez LSW [address] [place] [address] Corporate Staff Accountant Family Medicine 02/22/23 Marely Seals NP [address] [place] [address] Nurse Practitioner Family Medicine 10/24/23 10/21/24 Kandace Harvey NP [address] [place] [address] Nurse Practitioner Family Medicine 10/24/23 12/16/24 Marcellus Valenzuela DO [address] [place] [address] Referring Physician Family Medicine 05/29/24 documented as of this encounter
--- OUTSIDE RECORDS SUMMARY | 2025-01-18 09:07 | XMS_ITS | Encounter Summary ---
Author Organization [facility] Address [address] [place] [address] Care Team Providers Care Etl Manager Name Role Phone Jayy Guzman MD Primary Care Provider [phone] Jie Johnson APRN.SUPPLY CHAIN DEVELOPMENT MANAGER Unavailable [phone] Jayy Parker MD Unavailable [phone] Roxana Wagner RN Unavailable [phone] Source Comments In the event this information is protected by the Federal Confidentiality of Alcohol and Drug AbusePatient Records regulations: The Federal rules restrict any use of the information to criminally investigate or prosecute any alcohol or drug abuse patient.[facility] Encounter Details Date Type Department Care Team (Latest Contact Info) Description 10/31/2022 H&P External-NonCCF Provider, External, PASarahC Do not enter address information under generic External Provider. Social History Tobacco Use Types Packs/Day Years Used Date Smoking Tobacco: Every Day Cigarettes 1 35 Comments:recently started on Chantix; trying to quit Alcohol Use Standard Drinks/Week Comments Yes 0 (1 standard drink = 0.6 oz pur e alcohol) rare Comments No Sex and Gender Information Value [...] on filedocumented in this encounter Care Teams Etl Manager Relationship Specialty Start Date End Date Jayy Guzman MD [address] [place] [address] PCP - General 09/01/09 Jie Johnson APRN.SUPPLY CHAIN DEVELOPMENT MANAGER [address] [place] [address] Nurse Practitioner Hematology/Oncology 01/16/23 Jayy Parker MD [address] [facility] [place] [address] Physician Hematology/Oncology 01/16/23 Roxana Wagner, LIU [address] [place] [address] Specialty Voice Systems Engineer Hematology/Oncology 01/16/23 documented as of this encounter
--- OUTSIDE RECORDS SUMMARY | 2025-01-18 09:07 | XMS_ITS | Encounter Summary ---
Author Organization [facility] Address [address] [facility] [place] [address] Care Team Providers Care Barrel Lathe Operator Name Role Phone Jayy Guzman MD Primary Care Provider [phone] Zo Tavarez HORSERADISH GRINDER Unavailable Kandace Harvey SOFTWARE TRAINER Unavailable Jayy Guzman MD Unavailable [phone] Marcellus Valenzuela DO Unavailable [phone] Marcellus Valenzuela DO Primary Care Provider [phone] Encounter Details Date Type Department Care Team (Late st Contact Info) Description 12/16/2024 Abstract [facility] [address] [place] [address] Marcellus Valenzuela DO [address] [address] [place] [address] Social History Tobacco Use Types Packs/Day Years [...] How often do you attend chur or restoration services? Patient declined 04/15/2023 Do you belong to any clubs o r organizations such as yazidism groups, unions, fraternal or athletic groups, or [...] Recorded Patient Health Questionnaire-2 Score 2 11/09/2024 [facility] [place] of Occupat ional Health - Occupational Stress [...] 02/23/2025 1:20 PM EDT Office [facility] [address], [address] [place] [address] Marcellus Valenzuela DO [address] [facility] [address] [place] [address] documented as of this encounter Visit Diagnoses Not on filedocumented in this encounter Additional Health Concerns Assessment Noted Time PHQ-9 Depression Total Score: 10 024 10:00 AM EDT documented as of this encounter Care Teams Barrel Lathe Operator Relationship Specialty Start Date End Date Jayy Guzman MD [address] [place] [address] PCP - General Family Medicine 12/28/22 12/16/24 Jayy Guzman MD [address] [place] [address] PCP - Carolynn SD 02/20/24 Marcellus Valenzuela DO [address] [place] [address] PCP - General Family Medicine 12/17/24 Zo Tavarez LSW [address] [place] [address] [employer] School Hvac R Instructor Family Medicine 02/22/23 Kandace Harvey NP [address] [place] [address] Nurse Practitioner Family Medicine 10/24/23 12/16/24 Marcellus Valenzuela DO [address] [place] [address] Referring Physician Family Medicine 05/29/24 documented as of this encounter
--- OUTSIDE RECORDS SUMMARY | 2025-01-18 09:07 | XMS_ITS | Encounter Summary ---
Author Organization [facility] Address [address] [place] [address] Care Team Providers Care City Distribution Clerk Name Role Phone Jayy Guzman MD Primary Care Provider [phone] Jayy Guzman MD Unavailable [phone] Zo Tavarez GROUND SUPPORT EQUIPMENT ASSEMBLER Unavailable Marely Seals LICENSED DISPENSING OPTICIAN Unavailable Kandace Harvey LICENSED DISPENSING OPTICIAN Unavailable [phone] Jayy Guzman MD Unavailable [phone] Marcellus Valenzuela DO Unavailable [phone] Marcellus Valenzuela DO Primary Care Provider [phone] Encounter Details Date Type Department Care Team (Late st Contact Info) Description 12/25/2022 Clinisync Result Encounter [facility] Department Unsolicited Jayy Guzman MD [address] [place] [address] Social History Tobacco Use Types Packs/Day Years [...] 02/23/2025 1:20 PM EDT Office Visit [facility] [address], [address] [place] [address] NicolasMarcellus kang, [address] [place] [address] documented as of this encounter Procedures Procedure Name Priority Date/Time Associated Diagnosis Comments [facility] LUNG CANCER HOTSPOT GENE PANEL CYTOLOGY Routine 12/25/2022 11:14 AM EDT [facility] FISH FOR ALK (2P23) THINPREP NSCLC Routine 12/25/2022 11:14 AM EDT [facility] SURGICAL PATHOLOGY Routine 11:05 AM EDT [facility] ROS1 GENE REARRANGEMENT Routine 12/25/2022 11:05 AM EDT [facility] PD-L1 22C3 Routine 12/25/2022 11:05 AM EDT [facility] AP SENDOUTS Routine 12/25/2022 11:05 AM EDT [facility] CYTOLOGY NON-PATIENT ACCOUNT REPRESENTATIVE Routine 12/25/2022 11:02 AM EDT BRONCHOSCOPY 12/25/2022 10:45 AM EDT documented in this encounter Results * [facility] FISH FOR ALK (2P23) THINPREP NSCLC (12/25/2022 11:14 AM EDT) [facility] FISH FOR ALK (2P23) THINPREP NSCLC [facility] Comment: FISH FOR ALK (2P23) THINPREP NSCLC Laboratory Accession Number: [id number] Case: [id number] Sample Type: FNA Sample Description: Transbronchial, FNA, lymph node 7 Received Date: 12/28/2022 Number of nuclei scored: 50 RESULT: Result Reference Range ALK Rearrangement 2% (0-14%) INTERPRETATION: Interphase FISH was negative for a rearrangement involving the ALK gene at 2p23.2. METHODOLOGY: The dual color, ALK (2p23.2-2p23.1) Break Apart FISH Probe Kit ([employer], [place], [place]), approved for formalin-fixed, paraffin- embedded tissue by the Food and Drug Administration (FDA) for selection of locally advanced or metastatic non-small cell lung cancer patients for treatment with crizotinib, was modified for use with ThinPrep cytopathology slides as a laboratory developed test. Fifty (50) interphase cancer cells were analyzed. The slides were scored manually. REFERENCES: 1) Miguelangel EL, Javier Y-J, Genny DR, et al. Anaplastic Lymphoma Kinase Inhibition in Cqm-Umheg-Lghx Lung Cancer. N Engl J Med 2010;363:3643-9217. 2) Zara NI, Brittany PT, Reba MN, et al. Molecular Testing Guideline for the Selection of Lung Cancer Patients for EGFR and ALK Tyrosine Kinase Inhibitors: Guideline from the College of Somali Pathologists, International Association for the Study of Lung Cancer, and Association for Molecular Pathology. J Mol Diagn 2013;15:415-53. 3) NCCN Clinical Practice Guidelines in Oncology: Non-Small Cell Lung Cancer, National Comprehensive Cancer Network, Inc. Available at NCCN.org. 4) Benjamin SJ, Jeremías M, Leodan S, et al. Unique clinicopathologic features characterize ALK-rearranged lung adenocarcinoma in the western population. Clin Cancer Res 2009;15:6688-4094. LIMITATIONS: This test will not identify all rearrangements in ALK. Rare, cryptic abnormalities may be below the resolution of the assay, or may otherwise be undetected. Specimen size, quality or representativeness can affect the quality of the results. DISCLAIMER: This test was developed and its performance characteristics determined by the [facility]'s [facility] Pr[facility] [place] ([facility]). It has not been cleared or approved by the FDA. -[facility] is regulated under CLIA as qualified to perform high- complexity testing. This test is used for clinical purposes. It should not be regarded as investigational or for research. Interpretation performed at [facility], [address] [place] [address]. CLIA Number: [id number] As reviewed by Byron Corbett MD, PhD 12/25/2022 11:1 4 AM EDT 12/28/2022 10:35 PM EDT Narrative [facility]INISYNC - 01/08/2023 7:02 PM EDT Specimen Type: SPECIMEN OBTAINED BY ASPIRATION Ordering Facility: [facility] Address: [address] [place] [address] Original Ordering Provider: ANGEL ARNOLD us Generic External Data Provider SADEDANIEL Woody inal Result [facility] [address] [facility] [address] [place] [address] * [facility] LUNG CANCER HOTSPOT GENE PANEL CYTOLOGY (12/25/2022 11:14 AM EDT) [facility] LUNG CANCER HOTSPOT GENE PANEL CYTOLOGY [facility] Comment: Lung Cancer Hotspot Gene Panel Laboratory Accession Number: [id number] Case #: [id number] Part ID: [id number] Sample Type: FNA % Tumor: 80 Result: BRAF - No variant detected [Reference Sequence: (NM_[id number])]. EGFR - No variant detected [Reference Sequence: ([id number])]. HER2 (ERBB2) - No variant detected [Reference Sequence: (NM_[id number])]. KRAS - No variant detected [Reference Sequence: (NM_[id number])]. MET - No variant detected [Reference Sequence: (NM_000254.2)]. Interpretation: No cancer-related sequence changes were identified in mutation hotspots within the BRAF, EGFR, KRAS, MET, and HER2 (ERBB2) genes. These include common therapy-related mutations in BRAF exon 15, including codon 600, EGFR exons 18-21, KRAS exons 2, 3, 4, including codons 12, 13, 61, and others (e.g. 117, 146), MET exon 14 splicing site mutations and HER2 (ERBB2) exons 18-21. BRAF (B-Tony tatiana-oncogene, serine/threonine kinase) encodes a serine threonine kinase that is part of the mitogen-activated protein kinase (MAPK) signaling pathway, which promotes cellular growth and survival. Mutations in BRAF codon V600 in exon 15 are present in 1-5% of lung adenocarcinomas, and result in constitutive activation of the enzyme. V600E, which describes the substitution of glutamic acid (E) for valine (V) at position 600, represents approximately 50% of V600 mutations in lung cancer, and is associated with light or never smoking women whose tumors have micropapillary histology. BRAF V600 mutations in lung adenocarcinomas may predict responsiveness to BRAF inhibitor therapies such as vemurafinib and debrafenib (Juana Arriola, et al. J Clin Oncol 2011;29:3574:79; Buck Gomez et al. N Engl J Med 2015;373:726-36). EGFR (epidermal growth factor receptor) encodes a receptor tyrosine kinase that is a member of the ERBB family. Receptor dimerization activates the downstream ROBERT/TONY/MEK and PI3K/AKT/mTOR pathways, which promote cellular growth and survival. EGFR mutations are identified in approximately 16% of lung adenocarcinomas, are most commonly found in Asians, women and non-smokers. In-frame deletions within exon 19 and the Mmk622Rst mutation in exon 21 account for 90% of EGFR mutations. Exon 19 deletions, and mutations in exons 18 and 21 typically predict responsiveness to reversible small molecule EGFR tyrosine kinase inhibitors such as gefitinib and erlotinib, as well as irreversible inhibitors such as neratinib, dacomitinib, and afatinib. Exon 20 insertions and the T790M mutation are associated with resistance to EGFR tyrosine kinase inhibitors. (NCCN Clinical Practice Guidelines in Oncology: Non-Small Cell Lung Cancer, available at NCCN.org; Sal NI, Brittany PT. Britton MB, et al. J Mol Diagn 2013;15:415-53; Jayro S, Cldye Alonso, Tabatha R. Lancet Oncol 2015;16:e342-51; Boolell V, Alamgeer M, Aguillon DN, et al. Cancers 2015;7:1815-46; FEBS J 2010;277:301-8; Racheal Belle. Cancer. Clin Cancer Res 2015;21:2221-6; Jeramy C, Andrei FAJARDO, Simona A, et al. Transl Lung Cancer Res 2015;4:126-41; Juana Arriola, Keerthi L, Malatesta S, et al. J Clin Oncol 2011;29:3574-9; Sangeeta ROMERO, Danelle Samuel, Maryanne W. Proc Am Thorac Soc 2009;6:201-5.) HER2, now known as ERBB2 (erb-b2 receptor tyrosine kinase 2), encodes a receptor tyrosine kinase that lacks a known ligand. HER2 receptor dimerization activates downstream signaling through the PI3K/AKT/mTOR and MEK/ERK pathways, promoting cellular proliferation, differentiation, and migration, and mediating sensitivity of EGFR- mutant lung tumors to anti-EGFR therapy. Activating HER2 mutations are found in approximately 2 - 4% of NSCLC patients, occurring most commonly in non-smoking women with adenocarcinoma. HER2 gene mutations in NSCLC typically occur in exons 18 - 21, with an in-frame insertion in exon 20 most frequently identified, and result in constitutive activation of the enzyme. They are typically mutually exclusive with EGFR, KRAS, and ALK mutations, and may predict response to anti-HER2 inhibitor therapies such as traztuzumab or afatinib (Margi J, et al. J Clin Oncol 2013;31:4886-8788; Gabriel S, Aida S. Betty Oncol 2012;23(March (Suppl. 10)):w361-0752. Hermila Sheikh. Lancet Oncol 2011;12:175-80) refs 16, 22.). KRAS (Teodora rat sarcoma viral oncogene homolog) encodes a small self-inactivating GTP-ase that is a member of the ROBERT family of oncogenes, and serves as a signal transducer in response to stimuli from upstream cell-surface receptors. Activating mutations in KRAS are identified in 20-25% of lung adenocarcinomas. The majority of KRAS mutations in lung cancer are found in codons 12 and 13 in exon 2, and less frequently in codon 61 in exon 3. KRAS mutations are more often found in smokers, and less commonly in Asians. Mutations in KRAS are rarely found in combination with other carrier driver mutations such as EGFR, BRAF, HER2, ALK and ROS1 rearrangements. Activating KRAS mutations may be an adverse prognostic marker in lung adenocarcinoma, and appear to predict non responsiveness to anti-EGFR tyrosine kinase inhibitors. (NCCN Clinical Practice Guidelines in Oncology: Non-Small Cell Lung Cancer, available at NCCN.org; Sal NI, Brittany PT. Reba MB, et al. J Mol Diagn 2013;15:415-53; Jayro S, Clyde D, Tabatha R. Lancet Oncol 2015;16:e342-51; Jose F VKailash M, Aguillon DN, et al. Cancers 2015;7:1815-46; FEBS J 2010;277:301-8; Sangeeta ROMERO, Springer LEDESMA. Cancer. Clin Cancer Res 2015;21:2221-6; Andrei Guerra TM, Simona Arriola, et al. Transl Lung Cancer Res 2015;4:126-41; Juana A, Laurai L, Nuryssta S, et al. J Clin Oncol 2011;29:3574-9; Sangeeta ROMERO, Danelle J, Maryanne W. Proc Am Thorac Soc 2009;6:201-5.) MET (MET Tatiana-Oncogene) encodes a receptor tyrosine kinase (RTK) and may be activated via the binding of its ligand-hepatocyte growth factor (HGF). Activated MET phosphorylates its substrates and results in the activation of multiple signaling pathways, including the UB0W-DGD-mLED (cell survival) and the UHL-GEQ-CHW-ERK (cell proliferation) and FAK (cell adhesion and migration) mediated pathways. Nonsynonymous mutations in MET have been reported at low frequencies in NSCLC (Ramez et al., 2006) and small cell lung cancer (Balbina et al., 2003). Conversely, amplification of MET occurs in 2 - 4% of previously untreated NSCLC and in 5-20% of patients with EGFR- mutant tumors and acquired resistance to EGFR inhibitors (Lillie et.al, 2009; Shamir et al., 2007). Methodology: Following extraction of tumor DNA from microdissected FFPE, FNA, and CB specimens and library construction utilizing the custom Cancer Hotspot Panel v.1 ([employer], [place], [place]), DNA sequencing of gene mutation hotspot regions was performed on the MiSeq instrument ([employer], [place], [place]). DosYogures software ([employer], [place], [place]) was used to analyze FASTQ files to identify hotspot mutations in requested genes. Limitations: Sequence changes outside the analyzed mutation hotspots, including intronic, noncoding, and splicing site variants, will not be identified in this test. Insertions and deletions larger than the 20 and 40 bp, respectively, may not be identified in this test. The lower limit of detection of this assay is approximately 5% allele proportion. Variants below 5% allele proportion may be reported at the discretion of the molecular pathology professional staff if the technical quality of the sequencing is sufficient at that location and the call is unequivocal. Negative results from specimens for which the percentage of tumor cells is 10% or less should be interpreted with caution. A minimum coverage depth of 100 reads is required across the entire region of interest. Any region below this minimum will not be resulted, and a list of low coverage areas will be included in the report as applicable. Fixation in neutral buffered formalin is preferred. Decalcification agents and fixation agents containing heavy metals (e.g., B5) or harsh acid or base components (e.g. Bouin's solution) can inhibit PCR reactions. Disclaimer: This test was developed and its performance characteristics determined by [facility] [place] ([facility]). It has not been cleared or approved by the FDA. [facility] is regulated under CLIA as certified to perform high- complexity testing. This test is used for clinical purposes. It should not be regarded as investigational or for research. Testing and interpretation performed at [facility], [address] [place] [address]. CLIA Number: [id number] As reviewed by Charis Martin, PhD, [facility] 12/25/2022 11:1 4 AM EDT 12/28/2022 10:[address] [facility] SHE[facility]BY - 01/04/2023 4:27 PM EDT Specimen Type: SPECIMEN OBTAINED BY ASPIRATION Ordering Facility: [facility] Address: [address] [place] [id number] Original Ordering Provider: ANGEL ARNOLD Generic External Data Provider SHELBY hamilton Result [facility] [address] [place], [place] [address] [address] [address] * [facility] PD-L1 22C3 (12/25/2022 11:05 AM EDT) [facility] PD-L1 BY IMMUNOHISTOCHEMISTY [facility] Comment: Immunohistochemistry for PD-L1 expression Tumor Cells Positive: 95% Block Analyzed: A1 PD-L1 Clone: 22C3 Comment: N/A Immunohistochemistry was performed on formalin fixed paraffin-embedded tissue using the mouse monoclonal antibody 22C3 ([employer]; [place], [place]) followed by ultrasensitive bright field detection (Optiview with amplification [[employer], [place]]). Criteria for interpretation require that tumor cells show membrane staining of any intensity for PD-L1. Laboratory Developed Test (LDT) Disclaimer: Performance characteristics of immunohistochemical, immunofluorescent and chromogenic in-situ hybridization tests have been determined by the performing laboratory within [facility]???s Martinez Alison [facility] [place] ([facility], [facility], [facility], [facility], [facility], or [facility]) in a manner consistent with CLIA requirements. One or more of these tests have not been cleared or approved by the FDA. [facility] is regulated under CLIA as qualified to perform high-complexity testing. These tests are used for clinical purposes. They should not be regarded as investigational or for research. Positive and negative controls stain appropriately. Electronically signed out by: Lupe Rodriguez MD 12/25/2022 11:0 5 AM EDT 12/28/2022 11:22 AM EDT Narrative SHELBY - 01/14/2023 5:25 PM EDT Specimen Type: TISSUE SPECIMEN Ordering Facility: [facility] Address: [address] [place], [place] [id number] Original Ordering Provider: ANGEL ARNOLD us Generic External Data Provider SHELBY hamilton Result [facility] [address] [facility] [address] [address] * [facility] ROS1 GENE REARRANGEMENT (12/25/2022 11:05 AM EDT) [facility] ROS1 GENE REARRANGEMENT [facility] Comment: FISH for ROS1(6q22) Laboratory Accession Number: [id number] Case: [id number] Block: A1 Sample Type: FFPET Sample Description: LYMPH NODE, 10R, BIOPSY Received Date: 01/01/2023 Number of nuclei scored: 50 RESULT: Result Reference Range ROS1 Rearrangement 0% (0-14%) INTERPRETATION: A rearrangement involving the ROS1 gene at 6q22.1 was not detected. Clinical and pathological correlation is recommended. METHODOLOGY: A dual color, break apart probe specific to the ROS1 gene at 6q22.1 ([employer], [place], [place]) was used in this interphase FISH assay to detect the presence of a ROS1 rearrangement. The slides were scored manually. REFERENCES: 1) William LAGUERRE, Castro RC. Molecular Pathways: ROS1 Fusion Proteins in Cancer. Clin Cancer Res 2013;15:1-6. Etienne La Tung-Jue B, et al. Crizotinib in Ros1-Rearranged Non-Small Cell Lung Cancer. New Encl J Med 2014;21:1963-71 2) Etienne La Yung-Jue B, et al. Crizotinib in ROS1-Rearranged Non-Small Lung Cancer. New Engl J Med 2014;21:1963-71 3) Jeramy Jackson et al. Molecular methods for somatic mutation testing in lung adenocarcinoma: EGFR and beyond. Transl Lung Cacer Res 2015;4:126-41 4) Donn M, Fei Arriola, Jen Jackson, et al. ROS1 rearrangements in lung adenocarcinoma: prognostic impact, therapeutic options and genetic variability. Oncotarget 2015; e-pub ahead of print, October 13, 2014. 5) National Comprehensive Cancer Network (NCCN) Clinical Practice Guidelines in Oncology, Non-Small Cell Lung Cancer. Available at NCCN.org LIMITATIONS: This test will not identify all rearrangements in ROS1. Rare, cryptic abnormalities may be below the resolution of the assay, or may otherwise be undetected. Specimen size, quality or representativeness can affect the quality of the results. This assay has been validated for tissues fixed with neutral buffered formalin. Decalcification agents and fixation agents containing heavy metals, e.g. B5, or harsh acid or base components (e.g. Bouin's solution) can adversely impact assay performance. DISCLAIMER: This test was developed and its performance characteristics determined by the [facility]'s [facility] [place] ([facility]). It has not been cleared or approved by the FDA. [facility] is regulated under CLIA as qualified to perform high- complexity testing. This test is used for clinical purposes. It should not be regarded as investigational or for research. Interpretation performed at [facility], [address] [place] [address]. CLIA Number: [id number] As reviewed by Byron Corbett MD, PhD 12/25/2022 11:0 5 AM EDT 01/01/2023 2:03 PM EDT Narrative CL[facility]ISY[facility] - 01/10/2023 5:40 PM EDT Specimen Type: TISSUE SPECIMEN Ordering Facility: [facility] Address: [address] [place] [phone] Original Ordering Provider: ANGEL ARNOLD Generic External Data Provider SADENC Woody inal Result Performing Organization Address [facility] Phone Number [facility] HD[facility] [address] [address] * [facility] AP SENDOUTS (12/25/2022 11:05 AM EDT) [facility] AP SENDOUTS [facility] Comment: At the request of Dr. Lupe Rodriguez, slides from block A1 of this case were sent to [facility] for FISH for RET testing and the results will be available in the patient's EMR when complete. 12/25/2022 11:0 5 AM EDT 01/01/2023 10:47 AM EDT Narrative CLINISYKS - 01/10/2023 9:01 AM EDT Specimen Type: TISSUE SPECIMEN Ordering Facility: [facility] Address: [address] [place] [phone] Original Ordering Provider: ANGEL ARNOLD Generic External Data Provider CLINISYNC Woody inal Result Performing Organization Address [facility] Phone Number SHE[place] [facility] [address] [address] * [facility] SURGICAL PATHOLOGY (12/25/2022 11:05 AM EDT) [facility] CASE REPORT [facility] Comment: Surgical Pathology Report Case: [id number] Authorizing Provider: Angel Arnold MD Collected: 12/25/2022 11:05 AM Ordering Location: [facility] Received: 12/25/2022 01:30 PM Endoscopy - ENDO Pathologist: Lupe Rodriguez MD Specimen: LYMPH NODE BIOPSY, 10 R [facility] FINAL DIAGNOSIS [facility] Comment: A. Lymph node 10 R, biopsy: - Adenocarcinoma consistent with a lung primary. DIAGNOSIS COMMENT [facility] Comment: A. An immunohistochemical study for TTF-1 is diffusely positive within the tumor cells, supporting origins from a lung primary. Laboratory Developed Test (LDT) Disclaimer: Performance characteristics of immunohistochemical, immunofluorescent and chromogenic in-situ hybridization tests have been determined by the performing laboratory within [facility]???s [facility] [place] ([facility], [facility], [facility], [facility], [facility], or [facility]) in a manner consistent with CLIA requirements. One or more of these tests have not been cleared or approved by the FDA. [facility] is regulated under CLIA as qualified to perform high-complexity testing. These tests are used for clinical purposes. They should not be regarded as investigational or for research. Positive and negative controls stain appropriately. [facility] GROSS DESCRIPTION [facility] Comment: A. LYMPH NODE BIOPSY Received in formalin are multiple segments of cylindrical tissue aggregating to 0.9 x 0.3 x 0.1 cm, jama-white and of a soft and friable consistency. Totally submitted in formalin in one cassette. Gross examination performed at [place] [id number] 12/25/2022 5:08 PM [facility] CLINICAL HISTORY [facility] Comment: Pre-op diagnosis: Adenopathy [R59.9] [facility] FINAL PERFORMING LAB [facility] Comment: Diagnostic interpretation performed at [address] [address] CLIA# [id number] Gold Plater: Geovanni Dumont M.D. 12/25/2022 11:0 5 AM EDT 12/25/2022 3:07 PM EDT Narrative SHELBY - 12/27/2022 5:41 PM EDT Specimen Type: TISSUE SPECIMEN Ordering Facility: [facility] Address: [address] [place] [address] Original Ordering Provider: ANGEL ARNOLD us Generic External Data Provider SHE[facility] hamilton Result [facility] [address] [facility] [address] [place] [address] * [facility] CYTOLOGY NON-PATIENT ACCOUNT REPRESENTATIVE (12/25/2022 11:02 AM EDT) [facility] CASE REPORT [facility] Comment: Medical Cytology Report Case: [id number] Authorizing Provider: Angel Arnold MD Collected: 12/25/2022 11:02 AM Ordering Location: [facility] Received: 12/25/2022 11:43 AM Endoscopy - ENDO Pathologist: Mike Barragan MD Specimens: A) - EBUS TRANSBRONCHIAL FINE NEEDLE ASPIRATE, LYMPH NODE, 10R B) - EBUS TRANSBRONCHIAL FINE NEEDLE ASPIRATE, LYMPH NODE, 7 [facility] FINAL DIAGNOSIS [facility] Comment: A - EBUS TRANSBRONCHIAL FINE NEEDLE ASPIRATE, LYMPH NODE - 10R Positive for malignant cells. Adenocarcinoma (see comment). B - EBUS TRANSBRONCHIAL FINE NEEDLE ASPIRATE, LYMPH NODE - 7 Positive for malignant cells. Adenocarcinoma. The following cell blocks were associated with this case: A1 Cell Block, Alcohol Fixed B1 Cell Block, Alcohol Fixed DIAGNOSIS COMMENT See also related surgical pathology report [id number] with diagnostic concurrence. Molecular studies are pending and the results will be reported separately. [facility] GROSS DESCRIPTION [facility] Comment: A. EBUS TRANSBRONCHIAL FINE NEEDLE ASPIRATE, LYMPH NODE 30 cc hazy pink CytoLyt with material. ThinPrep and Cell Block prepared and 2 smears (1 air dried and 1 fixed). [facility] CLINICAL HISTORY [facility] Comment: Pre-op diagnosis: Adenopathy [R59.9] Long history of multiple lung cancers [facility] ADEQUACY INTERPRETATION [facility] Comment: A: #1 Positive for non-small cell carcinoma, favor adenocarcinoma B: #1 Positive for non-small cell carcinoma, favor adenocarcinoma Dr. Zaid Barragan / Prasanth Horner Each letter in the above intra-procedural assessment refers to a unique site. The specific site is indicated in the final diagnosis portion of the report. Each number in this assessment references a discrete evaluation episode. Intra-procedural assessment performed at [facility], [address] [place] [address] [facility] ORDER COMMENT [facility] Comment: Pre-op diagnosis: Adenopathy [R59.9] [facility] FINAL PERFORMING LAB [facility] Comment: Technical component, vessel builder screening performed at [facility], [address] [place] [address] CLIA# [id number] Diagnostic interpretation performed at [facility], [address] [place] [address] CLIA# [id number] Gold Plater: Mike Barragan M.D. 12/25/2022 11:0 2 AM EDT 12/25/2022 11:56 AM EDT Narrative [facility] - 12/28/2022 8:13 AM EDT Specimen Type: SPECIMEN OBTAINED BY ASPIRATION Ordering Facility: [facility] Address: [address] [place] [id number] Original Ordering Provider: ANGEL ARNOLD us Generic External Data Provider SHELBY Mckay inadunia Result [facility] [address] [id number] * BRONCHOSCOPY (12/25/2022 10:45 AM EDT) Anatomical Region Laterality Modality Other 12/25/2022 10:4 5 AM EDT Narrative 12/25/2022 11:39 AM EDT [facility] Patient Name: Lupe Butler Procedure Date: 12/25/2022 10:45 AM Date of : 1950 Admit Type: Outpatient Age: 72 Room: [facility] Room 2 Gender: Female Attending MD: Angel Arnold MD Procedure: Bronchoscopy Indications: Adenopathy, Mediastinal adenopathy Providers: Angel Arnold MD (Doctor), Edilia Montes RN (Assisting Nurse), Va Nance RN Referring MD: Requesting Physician: Jayy Parker Medicines: See the Anesthesia note for documentation of the administered medications Complications: No immediate complications Procedure: Pre-Anesthesia Assessment: - A History and Physical has been performed. Patient meds and allergies have been reviewed. The risks and benefits of the procedure and the sedation options and risks were discussed with the patient. All questions were answered and informed consent was obtained. Patient identification and proposed procedure were verified prior to the procedure by the physician, the nurse and the anesthesiologist in the procedure room. Mental Status Examination: normal. Airway Examination: normal oropharyngeal airway. Respiratory Examination: clear to auscultation. CV Examination: RRR, no murmurs, no S3 or S4. ASA Grade Assessment: III - A patient with severe systemic disease. After reviewing the risks and benefits, the patient was deemed in satisfactory condition to undergo the procedure. The anesthesia plan was to use general anesthesia. Immediately prior to administration of medications, the patient was re-assessed for adequacy to receive sedatives. The heart rate, respiratory rate, oxygen saturations, blood pressure, adequacy of pulmonary ventilation, and response to care were monitored throughout the procedure. The physical status of the patient was re-assessed after the procedure. After obtaining informed consent, the Bronchoscope was introduced through the mouth, via laryngeal mask airway and advanced to the tracheobronchial tree. the Bronchoscope was introduced through the mouth, via laryngeal mask airway and advanced to the tracheobronchial tree. The procedure was accomplished without difficulty. The patient tolerated the procedure well. Findings: The laryngeal mask airway is in good position. The vocal cords appear normal. The subglottic space is normal. The trachea is of normal caliber. The boyd is sharp. The tracheobronchial tree was examined to at least the first subsegmental level. Bronchial mucosa and anatomy are normal; there are no endobronchial lesions, and no secretions. The LORI stump from prior lobecomy looked normal Once the airway inspection was completed, the standard bronchoscope was withdrawn and the convex probe endobronchial ultrasound (EBUS) bronchoscope was inserted through the same route. Lymph Nodes: The following lymph nodes were evaluated and/or sampled. Lymph node sizing was performed via endobronchial ultrasound. Sampling by transbronchial needle aspiration was also performed using an Olympus RapidMindiShot 22 gauge needle and sent for routine cytology. - The 10R (hilar) node was 24 mm by EBUS, [address] and hypermetabolic via PET scan. Six samples with the needle were obtained. - The 7 (subcarinal) node was 22 mm by EBUS, [address] and hypermetabolic via PET scan. Two samples with the needle were obtained. 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 Impression: - Adenopathy - Mediastinal adenopathy - Lymph node sizing and sampling was performed. 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 Attending Participation: I personally performed the entire procedure. Dr. Angel Arnold MD 12/25/2022 11:39:24 AM This report has been signed electronically by Angel Arnold MD Number of Addenda: 0 Note Initiated On: 12/25/2022 10:45 AM Procedure Start: 10:59:38 AM Procedure End: 11:19:31 AM Procedure Note Radiology, Radiologist, - 12/25/2022 [facility] Patient Name: Lupe Butler Procedure Date: 12/25/2022 10:45 AM Date of : 1950 Admit Type: Outpatient Age: 72 Room: [facility] Room 2 Gender: Female Attending MD: Angel Arnold MD Procedure: Bronchoscopy Indications: Adenopathy, Mediastinal adenopathy Providers: Angel Arnold MD (Doctor), Edilia Montes RN (Assisting Nurse), Va Nance RN Referring MD: Requesting Physician: Jayy Parker Medicines: See the Anesthesia note for documentation of the administered medications Complications: No immediate complications Procedure: Pre-Anesthesia Assessment: - A History and Physical has been performed. Patient meds and allergies have been reviewed. The risks and benefits of the procedure and the sedation options and risks were discussed with the patient. All questions were answered and informed consent was obtained. Patient identification and proposed procedure were verified prior to the procedure by the physician, the nurse and the anesthesiologist in the procedure room. Mental Status Examination: normal. Airway Examination: normal oropharyngeal airway. Respiratory Examination: clear to auscultation. CV Examination: RRR, no murmurs, no S3 or S4. ASA Grade Assessment: III - A patient with severe systemic disease. After reviewing the risks and benefits, the patient was deemed in satisfactory condition to undergo the procedure. The anesthesia plan was to use general anesthesia. Immediately prior to administration of medications, the patient was re-assessed for adequacy to receive sedatives. The heart rate, respiratory rate, oxygen saturations, blood pressure, adequacy of pulmonary ventilation, and response to care were monitored throughout the procedure. The physical status of the patient was re-assessed after the procedure. After obtaining informed consent, the Bronchoscope was introduced through the mouth, via laryngeal mask airway and advanced to the tracheobronchial tree. the Bronchoscope was introduced through the mouth, via laryngeal mask airway and advanced to the tracheobronchial tree. The procedure was accomplished without difficulty. The patient tolerated the procedure well. Findings: The laryngeal mask airway is in good position. The vocal cords appear normal. The subglottic space is normal. The trachea is of normal caliber. The boyd is sharp. The tracheobronchial tree was examined to at least the first subsegmental level. Bronchial mucosa and anatomy are normal; there are no endobronchial lesions, and no secretions. The LORI stump from prior lobecomy looked normal Once the airway inspection was completed, the standard bronchoscope was withdrawn and the convex probe endobronchial ultrasound (EBUS) bronchoscope was inserted through the same route. Lymph Nodes: The following lymph nodes were evaluated and/or sampled. Lymph node sizing was performed via endobronchial ultrasound. Sampling by transbronchial needle aspiration was also performed using an Olympus ViziShot 22 gauge needle and sent for routine cytology. - The 10R (hilar) node was 24 mm by EBUS, [address] and hypermetabolic via PET scan. Six samples with the needle were obtained. - The 7 (subcarinal) node was 22 mm by EBUS, [address] and hypermetabolic via PET scan. Two samples with the needle were obtained. 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 Impression: - Adenopathy - Mediastinal adenopathy - Lymph node sizing and sampling was performed. 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 Attending Participation: I personally performed the entire procedure. Dr. Angel Arnold MD 12/25/2022 11:39:24 AM This report has been signed electronically by Angel Arnold MD Number of Addenda: 0 Note Initiated On: 12/25/2022 10:45 AM Procedure Start: 10:59:38 AM Procedure End: 11:19:31 AM Jayy Guzman MD [facility] Final Result documented in this encounter Visit Diagnoses Not on filedocumented in this encounter Care Teams City Distribution Clerk Relationship Specialty Start Date End Date Jayy Guzman MD [address] [place] [address] PCP - General Family Medicine 12/28/22 12/16/24 Jayy Guzman MD [address] [place] [address] PCP - Carolynn KEN 01/19/23 06/20/23 Jayy Guzman MD [address] [place] [address] PCP - Carolynn KEN 02/20/24 Marcellus Valenzuela DO [address] [place] [address] PCP - General Family Medicine 12/17/24 Zo Tavarez LSW [address] [place] [address] Juice Standardizer Family Medicine 02/22/23 Marely Seals NP [address] [place] [address] Nurse Practitioner Family Medicine 10/24/23 10/21/24 Kandace Harvey LICENSED DISPENSING OPTICIAN [address] [place] [address] Nurse Practitioner Family Medicine 10/24/23 12/16/24 Marcellus Valenzuela DO [address] [place] [address] Referring Physician Family Medicine 05/29/24 documented as of this encounter
--- OUTSIDE RECORDS SUMMARY | 2025-01-18 09:07 | XMS_ITS | Encounter Summary ---
Author Organization [facility] Address [address] [place] [address] Care Team Providers Care Paper Tube Grader Name Role Phone Jayy Guzman MD Primary Care Provider [phone] Jayy Guzman MD Unavailable [phone] Zo Tavarez SALESPERSON HOUSEHOLD APPLIANCES Unavailable Marely Seals NP Unavailable Kandace Harvey MEATMAN Unavailable [phone] Jayy Guzman MD Unavailable [phone] Marcellus Valenzuela DO Unavailable [phone] Marcellus Valenzuela DO Primary Care Provider [phone] Encounter Details Date Type Department Care Team (Late st Contact Info) Description 05/16/2023 Abstract [facility] [address] [place] [address] Jayy Guzman MD [address] [place] [address] Social History Tobacco Use Types Packs/Day Years [...] How often do you attend chur or gnosticist services? Patient declined 04/15/2023 Do you belong to any clubs o r organizations such as temple groups, unions, fraternal or athletic groups, or [...] Recorded Patient Health Questionnaire-2 Score 0 01/28/2023 [facility] [place] of Occupat ional Health - Occupational [...] a chcf (including now)? No 04/15/2023 Comments Unknown Sex [...] [facility] [address], [facility] [address] [place] [address] Marcellus Valenzuela DO [address] [facility] [address] [place] [address] documented as of this encounter Visit Diagnoses Not on filedocumented in this encounter Care Teams Paper Tube Grader Relationship Specialty Start Date End Date Jayy Guzman MD [address] [place] [address] PCP - General Family Medicine 12/28/22 12/16/24 Jayy Guzman MD [address] [place] [address] PCP - Carolynn KEN 01/19/23 06/20/23 Jayy Guzman MD [address] [place] [address] PCP - Carolynn KEN 02/20/24 Marcellus Valenzuela DO [address] [place] [address] PCP - General Family Medicine 12/17/24 Zo Tavarez LSW [address] [place] [address] Configuration Management Manager Family Medicine 02/22/23 Marely Seals NP [address] [place] [address] Nurse Practitioner Family Medicine 10/24/23 10/21/24 Kandace Harvey NP [address] [place] [address] Nurse Practitioner Family Medicine 10/24/23 12/16/24 Marcellus Valenzuela DO [address] [place] [address] Referring Physician Family Medicine 05/29/24 documented as of this encounter
--- OUTSIDE RECORDS SUMMARY | 2025-01-18 09:07 | XMS_ITS | Encounter Summary ---
Author Organization [facility] Address [address] [facility] [place] [address] Care Team Providers Care Financial Aid Officer Name Role Phone Jayy Guzman MD Primary Care Provider [phone] Zo Tavarez VALVE SEATER OPERATOR Unavailable Marely Seals NP Unavailable Kandace Harvey BALL SORTER Unavailable [phone] Jayy Guzman MD Unavailable [phone] Marcellus Valenzuela DO Unavailable [phone] Marcellus Valenzuela DO Primary Care Provider [phone] Encounter Details Date Type Department Care Team (Late st Contact Info) Description 07/26/2023 Abstract [facility] [address] [place] [address] [address] Laura Klein MA Social History Tobacco Use Types Packs/Day Years [...] often do you attend chur ch or hoahaoism services? Patient declined 04/15/2023 Do you belong [...] Recorded Patient Health Questionnaire-2 Score 0 01/28/2023 [facility] Occupat ional Health - Occupational [...] Description 02/23/2025 1:20 PM EDT [facility] [address], [facility] [address] [place] [address] Marcellus Valenzuela DO [address] [place] [address] documented as of this encounter Visit Diagnoses Not on filedocumented in this encounter Care Teams Financial Aid Officer Relationship Specialty Start Date End Date Jayy Guzman MD [address] [place] [address] PCP - General Family Medicine 12/28/22 12/16/24 Jayy Guzman MD [address] [place] [address] PCP - Carolynn KEN 02/20/24 Marcellus Valenzuela DO [address] [place] [address] PCP - General Family Medicine 12/17/24 Zo Tavarez LSW [address] [place] [address] Brick Burner Family Medicine 02/22/23 Marely Seals NP [address] [place] [address] Nurse Practitioner Family Medicine 10/24/23 10/21/24 Kandace Harvey NP [address] [place] [address] Nurse Practitioner Family Medicine 10/24/23 12/16/24 Marcellus Valenzuela DO [address] [place] [address] Referring Physician Family Medicine 05/29/24 documented as of this encounter
--- OUTSIDE RECORDS SUMMARY | 2025-01-18 09:07 | XMS_ITS | Encounter Summary ---
Author Organization [facility] Address [address] [facility] [place] [address] Care Team Providers Care Vocational Case Manager Name Role Phone DaysiZo PEDRO Unavailable Jayy Guzman MD Unavailable [phone] Marcellus Valenzuela DO Unavailable [phone] Marcellus Valenzuela DO Primary Care Provider [phone] Encounter Details Date Type Department Care Team (Late st Contact Info) Description 12/17/2024 Abstract [facility] [address] [place] [phone] Marcellus Valenzuela DO [address] [facility] [address] [place] [address] Social History Tobacco Use Types Packs/Day Years [...] How often do you attend chur or hinduism services? Patient declined 04/15/2023 Do you belong [...] Recorded Patient Health Questionnaire-2 Score 2 11/09/2024 [facility] Occupat ional Health - Occupational [...] Description 02/23/2025 1:20 PM EDT [facility] [address], [facility] [address] [place] [address] Marcellus Valenzuela DO [address] [place] [address] documented as of this encounter Visit Diagnoses Not on filedocumented in this encounter Additional Health Concerns Assessment Noted Time PHQ-9 Depression Total Score: 10 024 10:00 AM EDT documented as of this encounter Care Teams Vocational Case Manager Relationship Specialty Start Date End Date Jayy Guzman MD [address] [place] [address] PCP - Carolynn KEN 02/20/24 Marcellus Valenzuela DO [address] [place] [address] PCP - General Family Medicine 12/17/[address] [facility] [address] [place] [address] Human Capital Consultant Family Medicine 02/22/23 Marcellus Valenzuela DO [address] [place] [address] Referring Physician Family Medicine 05/29/24 documented as of this encounter
--- OUTSIDE RECORDS SUMMARY | 2025-01-18 09:07 | XMS_ITS | Encounter Summary ---
Author Organization [facility] Address [address] [facility] [place] [address] Care Team Providers Care Metal Painter Name Role Phone Jayy Guzman MD Primary Care Provider [phone] Zo Tavarez SLITTER OPERATOR Unavailable Kandace Harvey BUSINESS PLANNING DIRECTOR Unavailable [phone] Jayy Guzman MD Unavailable [phone] Marcellus Valenzuela DO Unavailable [phone] Marcellus Valenzuela DO Primary Care Provider [phone] Encounter Details Date Type Department Care Team (Late st Contact Info) Description 12/07/2024 Abstract [facility] [address] [place] [address] Marcellus Valenzuela DO [address] [address] [place] [address] Social History Tobacco Use Types Packs/Day Years [...] How often do you attend chur or religion services? Patient declined 04/15/2023 Do you belong [...] Recorded Patient Health Questionnaire-2 Score 2 11/09/2024 [facility] [place] of Occupat ional Health - Occupational Stress [...] [facility] [address], [address] [place] [address] Marcellus Valenzuela DO [address] [facility] [address] [place] [address] documented as of this encounter Visit Diagnoses Not on filedocumented in this encounter Additional Health Concerns Assessment Noted Time PHQ-9 Depression Total Score: 10 024 10:00 AM EDT documented as of this encounter Care Teams Metal Painter Relationship Specialty Start Date End Date Jayy Guzman MD [address] [place] [address] PCP - General Family Medicine 12/28/22 12/16/24 Jayy Guzman MD [address] [place] [address] PCP - Carolynn [place] 02/20/24 Marcellus Valenzuela DO [address] [place] [address] PCP - General Family Medicine 12/17/24 Zo Tavarez LSW [address] [place] [address] Truck Dispatcher Family Medicine 02/22/23 Kandace Harvey NP [address] [place] [address] Nurse Practitioner Family Medicine 10/24/23 12/16/24 Marcellus Valenzuela DO [address] [place] [address] Referring Physician Family Medicine 05/29/24 documented as of this encounter
--- OUTSIDE RECORDS SUMMARY | 2025-01-18 09:07 | XMS_ITS | Encounter Summary ---
Author Organization [facility] Address [address] [facility] [place] [address] Care Team Providers Care Vp Celebrity Services Name Role Phone Zo Tavarez Unavailable Jayy Guzman MD Unavailable [phone] Marcellus Valenzuela DO Unavailable [phone] Marcellus Valenzuela DO Primary Care Provider [phone] Encounter Details Date Type Department Care Team (Late st Contact Info) Description 12/17/2024 Abstract [facility] [address] [place] [phone] Jayy Guzman MD [address] [place] [address] Social History Tobacco Use Types Packs/Day Years [...] How often do you attend chur or sikhism services? Patient declined 04/15/2023 Do [...] Recorded Patient Health Questionnaire-2 Score 2 11/09/2024 [facility] of Occupat ional Health - [...] Description 02/23/2025 1:20 PM EDT [facility] [address] [facility] [address], [address] [phone] Marcellus Valenzuela DO [address] [facility] [address] [place] [address] documented as of this encounter Visit Diagnoses Not on filedocumented in this encounter Additional Health Concerns Assessment Noted Time PHQ-9 Depression Total Score: 10 024 10:00 AM EDT documented as of this encounter Care Teams Vp Celebrity Services Relationship Specialty Start Date End Date Jayy Guzman MD [address] [place] [address] PCP - Carolynn KEN 02/20/24 Marcellus Valenzuela DO [address] [place] [address] PCP - General Family Medicine 12/17/24 Zo Tavarez CONTROL MANAGER [address] [place] [address] Channel Marketing Specialist Family Medicine 02/22/23 Marcellus Valenzuela DO [address] [place] [address] Referring Physician Family Medicine 05/29/24 documented as of this encounter
--- OUTSIDE RECORDS SUMMARY | 2025-01-18 09:07 | XMS_ITS | Encounter Summary ---
Author Organization [facility] Address [address] [place] [address] Care Team Providers Care Special Services Agent Name Role Phone Jayy Guzman MD Primary Care Provider [phone] Jie Johnson APRN.BIZTALK SOFTWARE DEVELOPER Unavailable [phone] Jayy Parker MD Unavailable [phone] Roxana Wagner RN Unavailable [phone] Source Comments In the event this information is protected by the Federal Confidentiality of Alcohol and Drug AbusePatient Records regulations: The Federal rules restrict any use of the information to criminally investigate or prosecute any alcohol or drug abuse patient.[facility] Encounter Details Date Type Department Care Team (Latest Contact Info) Description 05/14/2024 H&P External-NonCCF Provider, External, PASarahC Do not [...] is lower risk 6 12/13/2022 Data from: https://www.neighborhoodatlas.medicine.[facility].edu/. Last address used for calculation [address] [place] [address] [address] 12/13/2022 Comments No Sex and [...] on filedocumented in this encounter Care Teams Special Services Agent Relationship Specialty Start Date End Date Jayy Guzman MD [address] [place] [address] PCP - General 09/01/09 Jie Johnson, MAINTENANCE PLUMBER.BIZTALK SOFTWARE DEVELOPER [address] [place] [address] Nurse Practitioner Hematology/Oncology 01/16/23 Jayy Parker MD [address] [facility] [place] [address] Physician Hematology/Oncology 01/16/23 Roxana Wagner, RN [address] [place] [address] Specialty African Studies Professor Hematology/Oncology 01/16/23 documented as of this encounter
[2025-01-18 09:15] LABS: Potassium 6.2 mmol/L (3.5-5.1)
== END 2025-01-18 08:59 | disposition home or self-care (01) ==
LOC: LAB 08:58
PROVIDERS: PCP Family Medicine; Visit Provider Internal Medicine
DX: E87.5 Hyperkalemia (principal)
CPT/HCPCS: 36415; 84132

== ENCOUNTER 2025-03-29 08:02 | Outpatient (REF) | payer MEDICARE, SELFPAY ==
--- OUTSIDE RECORDS SUMMARY | 2025-03-29 08:06 | XMS_ITS | Encounter Summary ---
Author Organization [facility] Address [address] [place] [address] Care Team Providers Care Valet Runner Name Role Phone Jayy Guzman MD Primary Care Provider [phone] Zo Tavarez IMMUNOLOGY TEACHER Unavailable Marely Seals NP Unavailable Kandace Harvey TIRE SPECIALIST Unavailable [phone] Jayy Guzman MD Unavailable [phone] Marcellus Valenzuela DO Unavailable [phone] Marcellus Valenzuela DO Primary Care Provider [phone] Marcellus Valenzuela DO Primary Care Provider [phone] Encounter Details Date Type Department Care Team (Late st Contact Info) Description 09/04/2023 Abstract [facility] [address] [place] [address] Jayy Guzman MD [address] [place] [address] Social History Tobacco Use Types Packs/Day Years [...] How often do you attend chur or christian services? Patient declined 04/15/2023 Do you belong to any clubs o r organizations such as latter day groups, unions, fraternal or athletic groups, or [...] Recorded Patient Health Questionnaire-2 Score 0 01/28/2023 [facility] [place] of Occupat ional Health - Occupational Stress [...] place to sleep or slept in a jail (including now)? No 04/15/2023 Comments No Sex and Gender Information Value Date Recorded Sex Assigned at Not on file Legal Sex Female 6:53 PM EDT Gender Identity Not on file Sexual Orientation Not on file documented as of this encounter Plan of Treatment Upcoming Encounters Date Type Department Care Team (Late st Contact Info) Description 04/27/2025 1:20 PM EDT Office Visit [facility] [address], [facility] [address] [place] [address] Marcellus Valenzuela DO [address] [facility] [address] [place] [address] documented as of this encounter Visit Diagnoses Not on filedocumented in this encounter Care Teams Valet Runner Relationship Specialty Start Date End Date Jayy Guzman MD [address] [place] [address] PCP - General Family Medicine 12/28/22 12/16/24 Jayy Guzman MD [address] [place] [address] PCP - Carolynn KEN 02/20/24 Marcellus Valenzuela DO [address] [place] [address] PCP - General Family Medicine 12/17/24 02/16/25 Marcellus Valenzuela DO [address] [place] [address] PCP - General Family Medicine 02/17/25 Zo Tavarez LSW [address] [place] [address] Revenue Director Family Medicine 02/22/23 Marely Seals NP [address] [place] [address] Nurse Practitioner Family Medicine 10/24/23 10/21/24 Kandace Harvey NP [address] [place] [address] Nurse Practitioner Family Medicine 10/24/23 12/16/24 Marcellus Valenzuela DO [address] [place] [address] Referring Physician Family Medicine 05/29/24 02/16/25 documented as of this encounter
--- OUTSIDE RECORDS SUMMARY | 2025-03-29 08:06 | XMS_ITS | Encounter Summary ---
Author Organization [facility] Address [address] [place] [address] Care Team Providers Care Fleet Technician Name Role Phone Kartik Guzman MD Primary Care Provider [phone] Zo Tavarez MARKETING BUDGET ANALYST Unavailable Marely Seals NP Unavailable Kandace Harvey FINISHING WIRE SAWYER Unavailable [phone] Kartik Guzman MD Unavailable [phone] Marcellus Valenzuela DO Unavailable [phone] Marcellus Valenzuela DO Primary Care Provider [phone] Marcellus Valenzuela DO Primary Care Provider [phone] Encounter Details Date Type Department Care Team [...] declined 04/15/2023 How often do you attend [facility] or bahai services? Patient declined 04/15/2023 Do you belong to any clubs o r organizations such as bahai groups, unions, fraternal or athletic groups, or [...] Recorded Patient Health Questionnaire-2 Score 0 01/28/2023 [facility] of Occupat ional Health - [...] 1:20 PM EDT Office Visit [facility] [address], [address] [place] [address] Marcellus Valenzuela DO [address] [place] [address] documented as of this encounter Procedures Procedure Name Priority Date/Time Associated Diagnosis Comments [facility] TSH SERPL-ACNC Routine 09/24/2023 1: 04 PM EST XR CHEST 2V FRONTAL/LAT 09/24/2023 1:03 PM EST documented in this encounter Results * [facility] TSH SERPL-ACNC (09/24/2023 1:04 PM EST) Pathologist [facility] TSH SERPL-ACNC 3.350 0.270 - 4.200 mIU/L [facility] 09/24/2023 1:04 PM EST 09/24/2023 10:43 PM EST Narrative SHELBY - 09/25/2023 5:35 AM EST Specimen Type: BLOOD SPECIMEN Ordering Facility: [facility] Address: [address] [place] [address] Original Ordering Provider: KARTIK CORREA us Generic External Data Provider CLINTrada F inal Result [facility] [address] [facility] [place] [address] * XR CHEST 2V FRONTAL/LAT (09/24/2023 1:03 [...] January 2023 and appears new from the card grinder radiograph from the CT performed in June [...] any questions regarding this interpretation, please call [phone]. If you are unable to reach us at the number above, please feel free to contact [facility] at [phone]. [id number]^AGFA_IDC^SI^ACN Procedure Note Radiology, Radiologist, - 09/25/2023 * [...] January 2023 and appears new from the card grinder radiograph from the CT performed in June [...] any questions regarding this interpretation, please call [phone]. If you are unable to reach us at the number above, please feel free to contact [facility] at [phone]. [id number]^AGFA_IDC^SI^ACN us Generic External Data Provider [facility] Final Result documented in this encounter Visit Diagnoses Not on filedocumented in this encounter Care Teams Fleet Technician Relationship Specialty Start Date End Date Kartik Guzman MD [address] [place] [address] PCP - General Family Medicine 12/28/22 12/16/24 Kartik Guzman MD [address] [place] [address] PCP - Carolynn KEN 02/20/24 Marcellus Valenzuela DO [address] [place] [address] PCP - General Family Medicine 12/17/24 02/16/25 Marcellus Valenzuela DO [address] [place] [address] PCP - General Family Medicine 02/17/25 Zo Tavarez LSW [address] [place] [address] Laborer Heading Family Medicine 02/22/23 Marely Seals NP [address] [place] [address] Nurse Practitioner Family Medicine 10/24/23 10/21/24 Kandace Harvey NP [address] [place] [address] Nurse Practitioner Family Medicine 10/24/23 12/16/24 Marcellus Valenzuela DO [address] [place] [address] Referring Physician Family Medicine 05/29/24 02/16/25 documented as of this encounter
--- OUTSIDE RECORDS SUMMARY | 2025-03-29 08:06 | XMS_ITS | Encounter Summary ---
Author Organization [facility] Address [address] [place] [address] Care Team Providers Care Pipe And Boiler Covers Supervisor Name Role Phone Jayy Guzman MD Primary Care Provider [phone] Zo Tavarez SALESPERSON PIANOS AND ORGANS Unavailable Marely eSals NP Unavailable Kandace Harvey FRAME CHANGER Unavailable [phone] Jayy Guzman MD Unavailable [phone] Marcellus Valenzuela DO Unavailable [phone] Marcellus Valenzuela DO Primary Care Provider [phone] Marcellus Valenzuela DO Primary Care Provider [phone] Encounter Details Date Type Department Care Team (Late st Contact Info) Description 09/25/2023 Abstract [facility] [address] [place] [address] Jayy Guzman MD [address] [place] [address] Social History Tobacco Use Types Packs/Day Years [...] declined 04/15/2023 How often do you attend [facility] or orthodox services? Patient declined 04/15/2023 Do [...] Recorded Patient Health Questionnaire-2 Score 0 01/28/2023 [facility] [place] of Occupat ional Health - Occupational Stress [...] Family Practice [address], [place] [place] [address] Marcellus Valenzuela DO [address] [facility] [address] [place] [address] documented as of this encounter Visit Diagnoses Not on filedocumented in this encounter Care Teams Pipe And Boiler Covers Supervisor Relationship Specialty Start Date End Date Jayy Guzman MD [address] [place] [id number] PCP - General Family Medicine 12/28/22 12/16/24 Jayy Guzman MD [address] [place] [address] PCP - [place] JESUS MANUEL 02/20/24 Marcellus Valenzuela DO [address] [place] [address] PCP - General Family Medicine 12/17/24 02/16/25 Marcellus Valenzuela DO [address] [place] [address] PCP - General Family Medicine 02/17/25 Zo Tavarez LSW [address] [place] [address] Extrusion Press Operator Family Medicine 02/22/23 Marely Seals NP [address] [place] [address] Nurse Practitioner Family Medicine 10/24/23 10/21/24 Kandace Harvey NP [address] [place] [address] Nurse Practitioner Family Medicine 10/24/23 12/16/24 Marcellus Valenzuela DO [address] [place] [address] Referring Physician Family Medicine 05/29/24 02/16/25 documented as of this encounter
--- OUTSIDE RECORDS SUMMARY | 2025-03-29 08:06 | XMS_ITS | Encounter Summary ---
Author Organization [facility] Address [address] [place] [address] Care Team Providers Care Partition Assembly Machine Operator Name Role Phone Jayy Guzman MD Primary Care Provider [phone] Zo Tavarez COVER STITCH MACHINE OPERATOR Unavailable Marely Seals NP Unavailable Kandace Harvey DAY CARE AIDE Unavailable [phone] Jayy Guzman MD Unavailable [phone] Marcellus Valenzuela DO Unavailable [phone] Marcellus Valenzuela DO Primary Care Provider [phone] Marcellus Valenzuela DO Primary Care Provider [phone] Encounter Details Date Type Department Care Team (Late st Contact Info) Description 09/25/2023 Abstract [facility] [address] [place] [address] Jayy Guzman MD [address] [place] [address] Social History Tobacco Use Types Packs/Day Years [...] declined 04/15/2023 How often do you attend [facility] or tenriism services? Patient declined 04/15/2023 Do you belong [...] Recorded Patient Health Questionnaire-2 Score 0 01/28/2023 [facility] [place] of Occupat ional Health - Occupational [...] [address], [address] [place] [address] Marcellus Valenzuela DO [address] [facility] [address] [place] [address] documented as of this encounter Visit Diagnoses Not on filedocumented in this encounter Care Teams Partition Assembly Machine Operator Relationship Specialty Start Date End Date Jayy Guzman MD [address] [place] [id number] PCP - General Family Medicine 12/28/22 12/16/24 Jayy Guzman MD [address] [place] [address] PCP - [place] JESUS MANUEL 02/20/24 Marcellus Valenzuela DO [address] [place] [address] PCP - General Family Medicine 12/17/24 02/16/25 Marcellus Valenzuela DO [address] [place] [address] PCP - General Family Medicine 02/17/25 Zo Tavarez LSW [address] [place] [address] Lime Kiln Worker Helper Family Medicine 02/22/23 Marely Seals NP [address] [place] [address] Nurse Practitioner Family Medicine 10/24/23 10/21/24 Kandace Harvey NP [address] [place] [address] Nurse Practitioner Family Medicine 10/24/23 12/16/24 Marcellus Valenzuela DO [address] [place] [address] Referring Physician Family Medicine 05/29/24 02/16/25 documented as of this encounter
--- OUTSIDE RECORDS SUMMARY | 2025-03-29 08:07 | XMS_ITS | Encounter Summary ---
Author Organization [facility] Address [address] [place] [address] Care Team Providers Care Top Carrier Name Role Phone Jayy Guzman MD Primary Care Provider [phone] Zo Tavarez INSTRUMENTATION SUPERVISOR Unavailable Marely Seals NP Unavailable Kandace Harvey INTERN RETAIL Unavailable [phone] Jayy Guzman MD Unavailable [phone] Marcellus Valenzuela DO Unavailable [phone] Marcellus Valenzuela DO Primary Care Provider [phone] Marcellus Valenzuela DO Primary Care Provider [phone] Encounter Details Date Type Department Care Team (Late st Contact Info) Description 12/10/2023 Abstract [facility] [address] [place] [address] Jayy Guzman MD [address] [place] [address] Social History Tobacco Use Types Packs/Day Years [...] declined 04/15/2023 How often do you attend [facility] or anabaptism services? Patient declined 04/15/2023 Do [...] Recorded Patient Health Questionnaire-2 Score 0 01/28/2023 [facility] [place] of Occupat ional Health - Occupational Stress [...] [address], [address] [place] [address] Marcellus Valenzuela DO [address] [facility] [address] [place] [address] documented as of this encounter Visit Diagnoses Not on filedocumented in this encounter Care Teams Top Carrier Relationship Specialty Start Date End Date Jayy Guzman MD [address] [place] [id number] PCP - General Family Medicine 12/28/22 12/16/24 Jayy Guzman MD [address] [place] [address] PCP - [place] JESUS MANUEL 02/20/24 Marcellus aVlenzuela DO [address] [place] [address] PCP - General Family Medicine 12/17/24 02/16/25 Marcellus Valenzuela DO [address] [place] [address] PCP - General Family Medicine 02/17/25 Zo Tavarez LSW [address] [place] [address] Plywood Factory Worker Family Medicine 02/22/23 Marely Seals NP [address] [place] [address] Nurse Practitioner Family Medicine 10/24/23 10/21/24 Kandace Harvey NP [address] [place] [address] Nurse Practitioner Family Medicine 10/24/23 12/16/24 Marcellus Valenzuela DO [address] [place] [address] Referring Physician Family Medicine 05/29/24 02/16/25 documented as of this encounter
--- OUTSIDE RECORDS SUMMARY | 2025-03-29 08:07 | XMS_ITS | Encounter Summary ---
Author Organization [facility] Address [address] [place] [address] Care Team Providers Care Graphite Mill Operator Name Role Phone Jayy Guzman MD Primary Care Provider [phone] Zo Tavarez PROSPECT MANAGER Unavailable Marely Seals NP Unavailable Kandace Harvey BLOCK SAWYER Unavailable [phone] Jayy Guzman MD Unavailable [phone] Marcellus Valenzuela DO Unavailable [phone] Marcellus Valenzuela DO Primary Care Provider [phone] Marcellus Valenzuela DO Primary Care Provider [phone] Encounter Details Date Type Department Care Team (Late st Contact Info) Description 10/29/2023 Abstract [facility] [address] [place] [address] Jayy Guzman MD [address] [place] [address] Social History Tobacco Use Types Packs/Day Years [...] declined 04/15/2023 How often do you attend [facility] or orthodoxy services? Patient declined 04/15/2023 Do [...] Recorded Patient Health Questionnaire-2 Score 0 01/28/2023 [facility] [place] of Occupat ional Health - Occupational Stress [...] [address], [place] [place] [address] Marcellus Valenzuela DO [address] [facility] [address] [place] [address] documented as of this encounter Visit Diagnoses Not on filedocumented in this encounter Care Teams Graphite Mill Operator Relationship Specialty Start Date End Date Jayy Guzman MD [address] [place] [id number] PCP - General Family Medicine 12/28/22 12/16/24 Jayy Guzman MD [address] [place] [address] PCP - [place] JESUS MANUEL 02/20/24 Marcellus Valenzuela DO [address] [place] [address] PCP - General Family Medicine 12/17/24 02/16/25 Marcellus Valenzuela DO [address] [place] [address] PCP - General Family Medicine 02/17/25 Zo Tavarez LSW [address] [place] [address] Communication Engineer Family Medicine 02/22/23 Marely Seals NP [address] [place] [address] Nurse Practitioner Family Medicine 10/24/23 10/21/24 Kandace Harvey NP [address] [place] [address] Nurse Practitioner Family Medicine 10/24/23 12/16/24 Marcellus Valenzuela DO [address] [place] [address] Referring Physician Family Medicine 05/29/24 02/16/25 documented as of this encounter
--- OUTSIDE RECORDS SUMMARY | 2025-03-29 08:07 | XMS_ITS | Encounter Summary ---
Author Organization [facility] Address [address] [place] [address] Care Team Providers Care Tower Air Traffic Control Specialist Name Role Phone Jayy Guzman MD Primary Care Provider [phone] Zo Tavarez INSURANCE COMMISSIONER Unavailable Marely Seals NP Unavailable Kandace Harvey BRICK HANDLER Unavailable [phone] Jayy Guzman MD Unavailable [phone] Marcellus Valenzuela DO Unavailable [phone] Marcellus Valenzuela DO Primary Care Provider [phone] Marcellus Valenzuela DO Primary Care Provider [phone] Encounter Details Date Type Department Care Team [...] declined 04/15/2023 How often do you attend [facility] or sikhism services? Patient declined 04/15/2023 Do [...] Recorded Patient Health Questionnaire-2 Score 0 01/28/2023 [facility] of Occupat ional Health - Occupational [...] Description 04/27/2025 1:20 PM EDT Office Visit [facility] [address], [address] [place] [address] Marcellus Valenzuela DO [address] [place] [address] documented as of this encounter Procedures Procedure [...] DATE OF EXAM: Sep 30 2023 12:43PM [facility] 0541 - CT CHEST WO [...] mass in the visualized field of view. Ict Teacher (topogram) images: No additional findings. IMPRESSION: 1. [...] any questions regarding this interpretation, please call [phone]. If you are unable to reach us at the number above, please feel free to contact [facility] at [phone]. [id number]^[email or web address]^SI^ACN Procedure Note Radiology, Radiologist, - 09/30/2023 * * *Final Report* * * DATE OF EXAM: Sep 30 2023 12:43PM [facility] - CT CHEST WO IVCON / PROCEDURE [...] mass in the visualized field of view. Ict Teacher (topogram) images: No additional findings. IMPRESSION: 1. [...] any questions regarding this interpretation, please call [phone]. If you are unable to reach us at the number above, please feel free to contact [facility] at [phone]. [id number]^[email or web address]^SI^ACN us Generic External Data Provider IMG CT PROCEDURES Final Result documented in this encounter Visit Diagnoses Not on filedocumented in this encounter Care Teams Tower Air Traffic Control Specialist Relationship Specialty Start Date End Date Jayy Guzman MD [address] [place] [address] PCP - General Family Medicine 12/28/22 12/16/24 Jayy Guzman MD [address] [place] [address] PCP - Carolynn KEN 02/20/24 Marcellus Valenzuela DO [address] [place] [address] PCP - General Family Medicine 12/17/24 02/16/25 Marcellus Valenzuela DO [address] [facility] [place] [address] PCP - General Family Medicine 02/17/25 Zo Tavarez LSW [address] [place] [address] Brokerage Purchase And Sale Clerk Family Medicine 02/22/23 Marely Seals NP [address] [place] [address] Nurse Practitioner Family Medicine 10/24/23 10/21/24 Kandace Harvey, BRICK HANDLER [address] [place] [address] Nurse Practitioner Family Medicine 10/24/23 12/16/24 Marcellus Valenzuela DO [address] [place] [address] Referring Physician Family Medicine 05/29/24 02/16/25 documented as of this encounter
--- OUTSIDE RECORDS SUMMARY | 2025-03-29 08:07 | XMS_ITS | Encounter Summary ---
Author Organization [facility] Address [address] [place] [address] Care Team Providers Care Head Sawyer Automatic Name Role Phone Jayy Guzman MD Primary Care Provider [phone] Zo Tavarez ANIMAL HANDLER Unavailable Marely Seals NP Unavailable Kandace Harvey GUEST SERVICES Unavailable [phone] Jayy Guzman MD Unavailable [phone] Marcellus Valenzuela DO Unavailable [phone] Marcellus Valenzuela DO Primary Care Provider [phone] Marcellus Valenzuela DO Primary Care Provider [phone] Encounter Details Date Type Department Care Team (Late st Contact Info) Description 03/12/2024 Abstract [facility] [address] [place] [address] Jayy Guzman MD [address] [place] [address] Social History Tobacco Use Types Packs/Day Years [...] How often do you attend chur or lutheran services? Patient declined 04/15/2023 Do you belong [...] Recorded Patient Health Questionnaire-2 Score 4 03/12/2024 [facility] [place] of Occupat ional Health - Occupational Stress [...] 03/12/2024 10:00 AM Laura Daly MA Feeling tired or having little energy More than half the days 03/12/2024 10:00 AM Laura Daly MA Poor appetite or overeating Not at all 03/12/2024 10:00 AM Laura Daly MA Feeling bad about yourself - or that you are a failure or have let yourself or your family down Several days 03/12/2024 10:00 AM Laura Daly MA Trouble concentrating on things, such as [...] way Not at all 03/12/2024 10:00 AM Laura Daly MA Patient Health Questionnaire-9 Score 10 03/12/2024 10:00 AM MANFREDT Laura Klein MA documented as of this encounter Plan of Treatment Upcoming Encounters Date Type Department Care Team (Late st Contact Info) Description 04/27/2025 1:20 PM EDT Office Visit [facility] [address], [facility] [address] [place] [address] Marcellus Valenzuela DO [address] [place] [address] documented as of this encounter Visit Diagnoses Not on filedocumented in this encounter Additional Health Concerns Assessment Noted Time PHQ-9 Depression Total Score: 10 024 10:00 AM EDT documented as of this encounter Care Teams Head Sawyer Automatic Relationship Specialty Start Date End Date Jayy Guzman MD [address] [place] [address] PCP - General Family Medicine 12/28/22 12/16/24 Jayy Guzman MD [address] [place] [address] PCP - Carolynn KEN 02/20/24 Marcellus Valenzuela DO [address] [place] [address] PCP - General Family Medicine 12/17/24 02/16/25 Macrellus Valenzuela DO [address] [place] [address] PCP - General Family Medicine 02/17/25 Zo Tavarez LSW [address] [place] [address] Equipment Coordinator Family Medicine 02/22/23 Marely Seals NP [address] [place] [address] Nurse Practitioner Family Medicine 10/24/23 10/21/24 Kandace Harvey NP [address] [place] [address] Nurse Practitioner Family Medicine 10/24/23 12/16/24 Marcellus Valenzuela DO [address] [place] [address] Referring Physician Family Medicine 05/29/24 02/16/25 documented as of this encounter
--- OUTSIDE RECORDS SUMMARY | 2025-03-29 08:07 | XMS_ITS | Encounter Summary ---
Author Organization [facility] Address [address] [place] [address] Care Team Providers Care Offal Roller Name Role Phone Jayy Guzman MD Primary Care Provider [phone] Jie Johnson APRN.BEHAVIORAL SPECIALIST Unavailable [phone] Jayy Parker MD Unavailable Unavail able Roxana Wagner RN Unavailable [phone] Source Comments In the event this information is protected by the Federal Confidentiality of Alcohol and Drug AbusePatient Records regulations: The Federal rules restrict any use of the information to criminally investigate or prosecute any alcohol or drug abuse patient.[facility] Encounter Details Date Type Department Care Team (Latest Contact Info) Description 06/01/2024 H&P External-NonCCF Provider, External, PA-C Do not enter address information under generic [...] is lower risk 6 12/13/2022 Data from: https://www.neighborhoodatlas.medicine.[facility].edu/. Last address used for calculation [address] [place] [address] [address] 12/13/2022 Comments No Sex and [...] on filedocumented in this encounter Care Teams Offal Roller Relationship Specialty Start Date End Date Jayy Guzman MD [address] [place] [address] PCP - General 09/01/09 Jie Johnson, PAUL.BEHAVIORAL SPECIALIST [address] [place] [address] Nurse Practitioner Hematology/Oncology 01/16/23 Jayy Parker MD [address] [place] [address] Physician Hematology/Oncology 01/16/23 01/25/25 Roxana Wagner, RN [address] [place] [address] Specialty Hemodialysis Charge Nurse Hematology/Oncology 01/16/23 documented as of this encounter
--- OUTSIDE RECORDS SUMMARY | 2025-03-29 08:07 | XMS_ITS | Encounter Summary ---
Author Organization [facility] Address [address] [place] [address] Care Team Providers Care Joint Terminal Attack Controller Name Role Phone Jayy Guzman MD Primary Care Provider [phone] Zo Tavarez FEATHER MAKER Unavailable Marely Seals NP Unavailable Kandace Harvey SR. CONSULTANT Unavailable [phone] Jayy Guzman MD Unavailable [phone] Marcellus Valenzuela DO Unavailable [phone] Marcellus Valenzuela DO Primary Care Provider [phone] Marcellus Valenzuela DO Primary Care Provider Encounter Details Date Type Department Care Team (Late st Contact Info) Description 01/01/2024 [facility] [address] [place] [address] Jayy Guzman MD [address] [place] [address] Social History Tobacco Use Types Packs/Day Years [...] declined 04/15/2023 How often do you attend [facility] or mosque services? Patient declined 04/15/2023 Do you belong to any clubs o r organizations such as episcopalian groups, unions, fraternal or athletic groups, or [...] Recorded Patient Health Questionnaire-2 Score 0 01/28/2023 [facility] [place] of Occupat ional Health - Occupational Stress [...] [address], [address] [place] [address] Marcellus Valenzuela DO [address] [facility] [address] [place] [address] documented as of this encounter Visit Diagnoses Not on filedocumented in this encounter Care Teams Joint Terminal Attack Controller Relationship Specialty Start Date End Date Jayy Guzman MD [address] [place] [id number] PCP - General Family Medicine 12/28/22 12/16/24 Jayy Guzman MD [address] [place] [address] PCP - [place] JESUS MANUEL 02/20/24 Marcellus Valenzuela DO [address] [place] [address] PCP - General Family Medicine 12/17/24 02/16/25 Marcellus Valenzuela DO [address] [place] [address] PCP - General Family Medicine 02/17/25 Zo Tavarez LSW [address] [place] [address] Meatcutter Family Medicine 02/22/23 Marely Seals NP [address] [place] [address] Nurse Practitioner Family Medicine 10/24/23 10/21/24 Kandace Harvey NP [address] [place] [address] Nurse Practitioner Family Medicine 10/24/23 12/16/24 Marcellus Valenzuela DO [address] [place] [address] Referring Physician Family Medicine 05/29/24 02/16/25 documented as of this encounter
--- OUTSIDE RECORDS SUMMARY | 2025-03-29 08:07 | XMS_ITS ---
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
--- OUTSIDE RECORDS SUMMARY | 2025-03-29 08:07 | XMS_ITS | Encounter Summary ---
Author Organization [facility] Address [address] [place] [address] Care Team Providers Care Progressive Assembler And Fitter Name Role Phone Jayy Guzman MD Primary Care Provider [phone] Zo Tavarez SKILL LABOR Unavailable Marely Seals NP Unavailable Kandace Harvey SHEET ROCK TAPER Unavailable [phone] Jayy Guzman MD Unavailable [phone] Marcellus Valenzuela DO Unavailable [phone] Marcellus Valenzuela DO Primary Care Provider [phone] Marcellus Valenzuela DO Primary Care Provider [phone] Encounter Details Date Type Department Care Team (Late st Contact Info) Description 10/09/2023 [facility] [address] [place] [address] Jayy Guzman MD [address] [place] [address] Social History Tobacco Use Types Packs/Day Years [...] declined 04/15/2023 How often do you attend [facility] or adventism services? Patient declined 04/15/2023 Do you belong to any clubs o r organizations such as quaker groups, unions, fraternal or athletic groups, or [...] Recorded Patient Health Questionnaire-2 Score 0 01/28/2023 [facility] [place] of Occupat ional Health - Occupational Stress [...] [address], [address] [place] [address] Marcellus Valenzuela DO [address] [facility] [address] [place] [address] documented as of this encounter Visit Diagnoses Not on filedocumented in this encounter Care Teams Progressive Assembler And Fitter Relationship Specialty Start Date End Date Jayy Guzman MD [address] [place] [id number] PCP - General Family Medicine 12/28/22 12/16/24 Jayy Guzman MD [address] [place] [address] PCP - [place] JESUS MANUEL 02/20/24 Marcellus Valenzuela DO [address] [place] [address] PCP - General Family Medicine 12/17/24 02/16/25 Marcellus Valenzuela DO [address] [place] [address] PCP - General Family Medicine 02/17/25 Zo Tavarez LSW [address] [place] [address] Nurse Anesthesia Program Director Family Medicine 02/22/23 Marely Seals NP [address] [place] [address] Nurse Practitioner Family Medicine 10/24/23 10/21/24 Kandace Harvey NP [address] [place] [address] Nurse Practitioner Family Medicine 10/24/23 12/16/24 Marcellus Valenzuela DO [address] [place] [address] Referring Physician Family Medicine 05/29/24 02/16/25 documented as of this encounter
--- OUTSIDE RECORDS SUMMARY | 2025-03-29 08:07 | XMS_ITS | Encounter Summary ---
Author Organization [facility] Address [address] [place] [address] Care Team Providers Care Patrol Sergeant Sheriff'S Office Name Role Phone Jayy Guzman MD Primary Care Provider [phone] Zo Tavarez PLASTIC BATTERY ASSEMBLER Unavailable Marely Seals NP Unavailable Kandace Harvey LANDMEN Unavailable [phone] Jayy Guzman MD Unavailable [phone] Marcellus Valenzuela DO Unavailable [phone] Marcellus Valenzuela DO Primary Care Provider [phone] Marcellus Valenzuela DO Primary Care Provider [phone] Encounter Details Date Type Department Care Team (Late st Contact Info) Description 11/21/2023 Abstract [facility] [address] [place] [address] Jayy Guzman MD [address] [place] [address] Social History Tobacco Use Types Packs/Day Years [...] declined 04/15/2023 How often do you attend [facility] or shinto services? Patient declined 04/15/2023 Do you belong [...] Recorded Patient Health Questionnaire-2 Score 0 01/28/2023 [facility] [place] of Occupat ional Health - Occupational Stress [...] [address], [address] [place] [address] Marcellus Valenzuela DO [address] [facility] 340 [place] [address] documented as of this encounter Visit Diagnoses Not on filedocumented in this encounter Care Teams Patrol Sergeant Sheriff'S Office Relationship Specialty Start Date End Date Jayy Guzman MD [address] [place] [id number] PCP - General Family Medicine 12/28/22 12/16/24 Jayy Guzman MD [address] [place] [address] PCP - [place] JESUS MANUEL 02/20/24 Marcellus Valenzuela DO [address] [place] [address] PCP - General Family Medicine 12/17/24 02/16/25 Marcellus Valenzuela DO [address] [place] [address] PCP - General Family Medicine 02/17/25 Zo Tavarez LSW [address] [place] [address] Mechanical Cad Drafter Family Medicine 02/22/23 Marely Seals NP [address] [place] [address] Nurse Practitioner Family Medicine 10/24/23 10/21/24 Kandace Harvey NP [address] [place] [address] Nurse Practitioner Family Medicine 10/24/23 12/16/24 Marcellus Valenzuela DO [address] [place] [address] Referring Physician Family Medicine 05/29/24 02/16/25 documented as of this encounter
--- OUTSIDE RECORDS SUMMARY | 2025-03-29 08:07 | XMS_ITS | Encounter Summary ---
Author Organization [facility] Address [address] [place] [address] Care Team Providers Care Supervisor Metal Furniture Assembly Name Role Phone Jayy Guzman MD Primary Care Provider Zo Tavarez COLLECTION CORRESPONDENT Unavailable Marely Seals NP Unavailable Kandace Harvey LGSW Unavailable [phone] Jayy Guzman MD Unavailable [phone] Marcellus Valenzuela DO Unavailable [phone] Marcellus Valenzuela DO Primary Care Provider [phone] Marcellus Valenzuela DO Primary Care Provider [phone] Encounter Details Date Type Department Care Team [...] 04/15/2023 How often do you attend [facility] or [facility] services? Patient declined 04/15/2023 Do you belong to any clubs o r organizations such as muslim groups, unions, fraternal or athletic groups, or [...] Recorded Patient Health Questionnaire-2 Score 4 03/12/2024 [facility] of Occupat ional Health - Occupational [...] 1:20 PM EDT Office Visit [facility] [address], [address] [place] [address] Marcellus Valenzuela DO [address] [place] [address] documented as of this encounter Procedures Procedure [...] * Uptake Time: 50 minutes * Radiopharmaceutical: I59-[id number] (FDG) COMPARISON: 12/10/2022 CORRELATION: CT chest 09/30/2023 [...] any questions regarding this interpretation, please call [phone]. If you are unable to reach us at the number above, please feel free to contact [facility] at [phone]. [id number]^[email or web address]^SI^ACN Procedure Note Radiology, Radiologist, - 03/17/2024 * [...] * Uptake Time: 50 minutes * Radiopharmaceutical: [id number] (FDG) COMPARISON: 12/10/2022 CORRELATION: CT chest 09/30/2023 [...] any questions regarding this interpretation, please call [phone]. If you are unable to reach us at the number above, please feel free to contact [facility] at [phone]. [id number]^[email or web address]^SI^ACN us Generic External Data Provider [facility] Final Result documented in this encounter Visit Diagnoses Not on filedocumented in this encounter Additional Health Concerns Assessment Noted Time PHQ-9 Depression Total Score: 10 024 10:00 AM EDT documented as of this encounter Care Teams Supervisor Metal Furniture Assembly Relationship Specialty Start Date End Date Jayy Guzman MD [address] [place] [address] PCP - General Family Medicine 12/28/22 12/16/24 Jayy Guzman MD [address] [place] [address] PCP - Carolynn KEN 02/20/24 Marcellus Valenzuela DO [address] [place] [address] PCP - General Family Medicine 12/17/24 02/16/25 Marcellus Valenzuela DO [address] [place] [address] PCP - General Family Medicine 02/17/25 Zo Tavarez LSW [address] [place] [address] Non Destructive Testing Scientist Family Medicine 02/22/23 Marely Seals NP [address] [place] [address] Nurse Practitioner Family Medicine 10/24/23 10/21/24 Kandace Harvey LGSW [address] [place] [address] Nurse Practitioner Family Medicine 10/24/23 12/16/24 Marcellus Valenzuela DO [address] [place] [address] Referring Physician Family Medicine 05/29/24 02/16/25 documented as of this encounter
--- OUTSIDE RECORDS SUMMARY | 2025-03-29 08:07 | XMS_ITS | Encounter Summary ---
Author Organization [facility] Address [address] [place] [address] Care Team Providers Care X Ray Tech Name Role Phone Jayy Guzman MD Primary Care Provider [phone] Jie Johnson APRN.[place] DEVELOPMENT MANAGER Unavailable [phone] Jayy Parker MD Unavailable Unavail able Roxana Wagner RN Unavailable [phone] Source Comments In the event this information is protected by the Federal Confidentiality of Alcohol and Drug AbusePatient Records regulations: The Federal rules restrict any use of the information to criminally investigate or prosecute any alcohol or drug abuse patient.[facility] Encounter Details Date Type Department Care Team (Latest Contact Info) Description 05/26/2024 H&P External-NonCCF Provider, External, PA-C Do not [...] is lower risk 6 12/13/2022 Data from: https://www.neighborhoodatlas.medicine.[facility].edu/. Last address used for calculation [address] [place] [address] [address] 12/13/2022 Comments No Sex and [...] on filedocumented in this encounter Care Teams X Ray Tech Relationship Specialty Start Date End Date Jayy Guzman MD [address] [place] [address] PCP - General 09/01/09 Jie Johnson, PAUL.[place]AVA DEVELOPMENT MANAGER [address] [place] [address] Nurse Practitioner Hematology/Oncology 01/16/23 Jayy Parker MD [address] [place] [address] Physician Hematology/Oncology 01/16/23 01/25/25 Roxana Wagner, RN [address] [place] [address] Specialty Textiles Sales Representative Hematology/Oncology 01/16/23 documented as of this encounter
--- OUTSIDE RECORDS SUMMARY | 2025-03-29 08:08 | XMS_ITS | Encounter Summary ---
Author Organization [facility] Address [address] [place] [address] Care Team Providers Care Dynamometer Tester Engine Name Role Phone Jayy Guzman MD Primary Care Provider [phone] Zo Tavarez PROGRAM MANAGER SLP Unavailable Marely Seals NP Unavailable Kandace Harvey CHART PICKER Unavailable [phone] Jayy Guzman MD Unavailable [phone] Marcellus Valenzuela DO Unavailable [phone] Marcellus Valenzuela DO Primary Care Provider Marcellus Valenzuela DO Primary Care Provider [phone] Encounter Details Date Type Department Care Team (Late st Contact Info) Description 05/26/2024 Abstract [facility] [address] [place] [address] Jayy Guzman MD [address] [place] [address] Social History Tobacco Use Types Packs/Day Years [...] any clubs o r organizations such as scientology groups, unions, fraternal or athletic groups, or [...] Recorded Patient Health Questionnaire-2 Score 4 03/12/2024 [facility] [place] of Occupat ional Health - Occupational Stress [...] [address] [place] [address] Marcellus Valenzuela DO [address] [place] [address] documented as of this encounter Visit Diagnoses Not on filedocumented in this encounter Additional Health Concerns Assessment Noted Time PHQ-9 Depression Total Score: 10 024 10:00 AM EDT documented as of this encounter Care Teams Dynamometer Tester Engine Relationship Specialty Start Date End Date Guzman, Jayy A, MD [address] [place] [address] PCP - General Family Medicine 12/28/22 12/16/24 Jayy Guzman MD [address] [place] [address] PCP - Carolynn KEN 02/20/24 Marcellus Valenzuela DO [address] [place] [address] PCP - General Family Medicine 12/17/24 02/16/25 Marcellus Valenzuela DO [address] [place] [address] PCP - General Family Medicine 02/17/25 Zo Tavarez LSW [address] [place] [address] Buffer Operator Family Medicine 02/22/23 Marely Seals NP [address] [place] [address] Nurse Practitioner Family Medicine 10/24/23 10/21/24 Kandace Harvey NP [address] [place] [address] Nurse Practitioner Family Medicine 10/24/23 12/16/24 Marcellus Valenzuela DO [address] [place] [address] Referring Physician Family Medicine 05/29/24 02/16/25 documented as of this encounter
--- OUTSIDE RECORDS SUMMARY | 2025-03-29 08:08 | XMS_ITS | Encounter Summary ---
Author Organization [facility] Address [address] [place] [address] Care Team Providers Care Library Customer Service Clerk Name Role Phone Jayy Guzman MD Primary Care Provider [phone] Zo Tavarez DIGITAL DESIGN ENGINEER Unavailable Marely Seals NP Unavailable Kandace Harvey PHARMACIST ASSISTANT Unavailable [phone] Jayy Guzman MD Unavailable [phone] Marcellus Valenzuela DO Unavailable [phone] Marcellus Valenzuela DO Primary Care Provider [phone] Marcellus Valenzuela DO Primary Care Provider [phone] Encounter Details Date Type Department Care Team (Late st Contact Info) Description 05/26/2024 [facility] [place] [address] [place] [address] Jayy Guzman MD [address] [place] [address] Social History Tobacco Use Types Packs/Day Years [...] Health Questionnaire-2 Score 4 03/12/2024 [facility] [place] of Occupat ional Health - Occupational Stress [...] [address] [place] [address] Marcellus Valenzuela DO [address] [place] [address] [place] [address] documented as of this encounter Visit Diagnoses Not on filedocumented in this encounter Additional Health Concerns Assessment Noted Time PHQ-9 Depression Total Score: 10 024 10:00 AM EDT documented as of this encounter Care Teams Library Customer Service Clerk Relationship Specialty Start Date End Date Guzman, Jayy A, MD [address] [place] [address] PCP - General Family Medicine 12/28/22 12/16/24 Jayy Guzman MD [address] [place] [address] PCP - Carolynn KEN 02/20/24 Marcellus Valenzuela DO [address] [place] [address] PCP - General Family Medicine 12/17/24 02/16/25 Marcellus Valenzuela DO [address] [place] [address] PCP - General Family Medicine 02/17/25 Zo Tavarez LSW [address] [place] [address] Swing Grinder Family Medicine 02/22/23 Marely Seals NP [address] [place] [address] Nurse Practitioner Family Medicine 10/24/23 10/21/24 Kandace Harvey NP [address] [place] [address] Nurse Practitioner Family Medicine 10/24/23 12/16/24 Marcellus Valenzuela DO [address] [place] [address] Referring Physician Family Medicine 05/29/24 02/16/25 documented as of this encounter
--- OUTSIDE RECORDS SUMMARY | 2025-03-29 08:08 | XMS_ITS | Encounter Summary ---
Author Organization [facility] Address [address] [place] [address] Care Team Providers Care Weigher And Charger Name Role Phone Jayy Gzuman MD Primary Care Provider [phone] Zo Tavarez SPLUNK CONSULTANT Unavailable Marely Seals NP Unavailable Kandace Harvey DEMAND PLANNING MANAGER Unavailable [phone] Jayy Guzman MD Unavailable [phone] Marcellus Valenzuela DO Unavailable [phone] Marcellus Valenzuela DO Primary Care Provider [phone] Marcellus Valenzuela DO Primary Care Provider [phone] Encounter Details Date Type Department Care Team (Late st Contact Info) Description 05/26/2024 Abstract [facility] [address] [place] [address] Jayy Guzman MD [address] [place] [address] Social History Tobacco Use Types Packs/Day Years [...] Patient Health Questionnaire-2 Score 4 03/12/2024 [facility] [place] of Occupat ional Health - Occupational [...] [address] [place] [address] Marcellus Valenzuela DO [address] [place] [address] documented as of this encounter Visit Diagnoses Not on filedocumented in this encounter Additional Health Concerns Assessment Noted Time PHQ-9 Depression Total Score: 10 024 10:00 AM EDT documented as of this encounter Care Teams Weigher And Charger Relationship Specialty Start Date End Date Guzman, Jayy A, MD [address] [place] [address] PCP - General Family Medicine 12/28/22 12/16/24 Jayy Gumzan MD [address] [place] [address] PCP - Carolynn KEN 02/20/24 Marcellus Valenzuela DO [address] [place] [address] PCP - General Family Medicine 12/17/24 02/16/25 Marcellus Valenzuela DO [address] [place] [address] PCP - General Family Medicine 02/17/25 Zo Tavarez LSW [address] [place] [address] Machine Group Leader Family Medicine 02/22/23 Marely Seals NP [address] [place] [address] Nurse Practitioner Family Medicine 10/24/23 10/21/24 Kandace Harvey NP [address] [place] [address] Nurse Practitioner Family Medicine 10/24/23 12/16/24 Marcellus Valenzuela DO [address] [place] [address] Referring Physician Family Medicine 05/29/24 02/16/25 documented as of this encounter
--- OUTSIDE RECORDS SUMMARY | 2025-03-29 08:08 | XMS_ITS | Encounter Summary ---
Author Organization [facility] Address [address] [place] [address] Care Team Providers Care Wafer Fabricator Name Role Phone Jayy Guzman MD Primary Care Provider [phone] Jie Johnson APRN.STEEL ERECTOR Unavailable [phone] Jayy Parker MD Unavailable Unavail able Roxana Wagner RN Unavailable [phone] Source Comments In the event this information is protected by the Federal Confidentiality of Alcohol and Drug AbusePatient Records regulations: The Federal rules restrict any use of the information to criminally investigate or prosecute any alcohol or drug abuse patient.[facility] Encounter Details Date Type Department Care Team (Latest Contact Info) Description 02/05/2023 Patient Msg [facility] [address] [place] [address] Provider, [facility] Radiology Pre Procedure Instructions Social [...] is lower risk 6 12/13/2022 Data from: https://www.neighborhoodatlas.medicine.[facility].edu/. Last address used for calculation [address] [place] [address] [address] 12/13/2022 Comments No Sex and [...] on filedocumented in this encounter Care Teams Wafer Fabricator Relationship Specialty Start Date End Date Jayy Guzman MD [address] [place] [address] PCP - General 09/01/09 Jie Johnson, PAUL.STEEL ERECTOR [address] [place] [address] Nurse Practitioner Hematology/Oncology 01/16/23 Jayy Parker MD [address] [place] [address] Physician Hematology/Oncology 01/16/23 01/25/25 Roxana Wagner, RN [address] [place] [address] Specialty Card Checker Hematology/Oncology 01/16/23 documented as of this encounter
--- OUTSIDE RECORDS SUMMARY | 2025-03-29 08:08 | XMS_ITS | Encounter Summary ---
Author Organization [facility] Address [address] [place] [address] Care Team Providers Care Deadener Name Role Phone Jayy Guzman MD Primary Care Provider [phone] Zo Tavarez HOOKER INSPECTOR Unavailable Marely Seals NP Unavailable Kandace Harvey SOUND TRUCK OPERATOR Unavailable [phone] Jayy Guzman MD Unavailable [phone] Marcellus Valenzuela DO Unavailable [phone] Marcellus Valenzuela DO Primary Care Provider [phone] Marcellus Valenzuela DO Primary Care Provider [phone] Encounter Details Date Type Department Care Team (Late st Contact Info) Description 05/28/2024 Abstract [facility] [place] [facility] [address] [place] [address] Jayy Guzman MD [address] [place] [address] Social History Tobacco Use Types Packs/Day Years [...] Patient Health Questionnaire-2 Score 4 03/12/2024 [facility] [place] of Occupat ional Health - Occupational Stress [...] [address] [place] [address] Marcellus Valenzuela DO [address] [place] [address] documented as of this encounter Visit Diagnoses Not on filedocumented in this encounter Additional Health Concerns Assessment Noted Time PHQ-9 Depression Total Score: 10 024 10:00 AM EDT documented as of this encounter Care Teams Deadener Relationship Specialty Start Date End Date Guzman, Jayy A, MD [address] [place] [address] PCP - General Family Medicine 12/28/22 12/16/24 Jayy Guzman MD [address] [place] [address] PCP - Carolynn KEN 02/20/24 Marcellus Valenzuela DO [address] [place] [address] PCP - General Family Medicine 12/17/24 02/16/25 Marcellus Valenzuela DO [address] [place] [address] PCP - General Family Medicine 02/17/25 Zo Tavarez LSW [address] [place] [address] Railway Track Worker Family Medicine 02/22/23 Marely Seals NP [address] [place] [address] Nurse Practitioner Family Medicine 10/24/23 10/21/24 Kandace Harvey NP [address] [place] [address] Nurse Practitioner Family Medicine 10/24/23 12/16/24 Marcellus Valenzuela DO [address] [place] [address] Referring Physician Family Medicine 05/29/24 02/16/25 documented as of this encounter
--- OUTSIDE RECORDS SUMMARY | 2025-03-29 08:09 | XMS_ITS | Encounter Summary ---
Author Organization [facility] Address [address] [place] [address] Care Team Providers Care Rn Clinical Review Name Role Phone Jayy Guzman MD Primary Care Provider [phone] Zo Tavarez SOLDERING MACHINE OPERATOR AUTOMATIC Unavailable Marely Seals NP Unavailable Kandace Harvey PATIENT EXPERIENCE COORDINATOR Unavailable [phone] Jyay Guzman MD Unavailable [phone] Marcellus Valenzuela DO Unavailable [phone] Marcellus Valenzuela DO Primary Care Provider [phone] Marcellus Valenzuela DO Primary Care Provider [phone] Encounter Details Date Type Department Care Team (Late st Contact Info) Description 05/19/2024 Abstract [facility] [place] [address] [place] [address] Jayy Guzman MD [address] [place] [address] Social History Tobacco Use Types Packs/Day Years [...] How often do you attend chur or worship services? Patient declined 04/15/2023 Do you belong [...] Patient Health Questionnaire-2 Score 4 03/12/2024 [facility] [place] of Occupat ional Health - Occupational Stress [...] [address] [place] [address] Marcellus Valenzuela DO [address] [place] [address] documented as of this encounter Visit Diagnoses Not on filedocumented in this encounter Additional Health Concerns Assessment Noted Time PHQ-9 Depression Total Score: 10 024 10:00 AM EDT documented as of this encounter Care Teams Rn Clinical Review Relationship Specialty Start Date End Date Guzman, Jayy A, MD [address] [place] [address] PCP - General Family Medicine 12/28/22 12/16/24 Jayy Guzman MD [address] [place] [address] PCP - Carolynn KEN 02/20/24 Marcellus Valenzuela DO [address] [place] [address] PCP - General Family Medicine 12/17/24 02/16/25 Marcellus Valenzuela DO [address] [place] [address] PCP - General Family Medicine 02/17/25 Zo Tavarez LSW [address] [place] [address] Clinical Cytopathologist Family Medicine 02/22/23 Marely Seals NP [address] [place] [address] Nurse Practitioner Family Medicine 10/24/23 10/21/24 Kandace Harvey NP [address] [place] [address] Nurse Practitioner Family Medicine 10/24/23 12/16/24 Marcellus Valenzuela DO [address] [place] [address] Referring Physician Family Medicine 05/29/24 02/16/25 documented as of this encounter
--- OUTSIDE RECORDS SUMMARY | 2025-03-29 08:09 | XMS_ITS | Encounter Summary ---
Author Organization [facility] Address [address] [place] [address] Care Team Providers Care Learning Disabled Teacher Name Role Phone Jayy Guzman MD Primary Care Provider [phone] Zo Tavarez CREDIT ADMINISTRATION MANAGER Unavailable Marely Seals NP Unavailable Kandace Harvey BURGLAR ALARM SUPERINTENDENT Unavailable [phone] Jayy Guzman MD Unavailable [phone] Marcellus Valenzuela DO Unavailable [phone] Marcellus Valenzuela DO Primary Care Provider [phone] Marcellus Valenzuela DO Primary Care Provider [phone] Encounter Details Date Type Department Care Team (Late st Contact Info) Description 05/14/2024 [facility] [place] [facility] [address] [place] [address] Jayy Guzman MD [address] [place] [address] Social History Tobacco Use Types Packs/Day Years [...] How often do you attend chur or yarsani services? Patient declined 04/15/2023 Do you belong to any clubs o r organizations such as buddhist groups, unions, fraternal or athletic groups, or [...] 03/12/2024 [facility] [place] of Occupat ional Health - Occupational [...] [address] [place] [address] Marcellus Valenzuela DO [address] [place] [address] documented as of this encounter Visit Diagnoses Not on filedocumented in this encounter Additional Health Concerns Assessment Noted Time PHQ-9 Depression Total Score: 10 024 10:00 AM EDT documented as of this encounter Care Teams Learning Disabled Teacher Relationship Specialty Start Date End Date Guzman, Jayy A, MD [address] [place] [address] PCP - General Family Medicine 12/28/22 12/16/24 Jayy Guzman MD [address] [place] [address] PCP - Carolynn KEN 02/20/24 Marcellus Valenzuela DO [address] [place] [address] PCP - General Family Medicine 12/17/24 02/16/25 Marcellus Valenzuela DO [address] [place] [address] PCP - General Family Medicine 02/17/25 Zo Tavarez LSW [address] [place] [address] Personal Computer Network Engineer Family Medicine 02/22/23 Marely Seals NP [address] [place] [address] Nurse Practitioner Family Medicine 10/24/23 10/21/24 Kandace Harvey NP [address] [place] [address] Nurse Practitioner Family Medicine 10/24/23 12/16/24 Marcellus Valenzuela DO [address] [place] [address] Referring Physician Family Medicine 05/29/24 02/16/25 documented as of this encounter
--- OUTSIDE RECORDS SUMMARY | 2025-03-29 08:09 | XMS_ITS | Encounter Summary ---
Author Organization [facility] Address [address] [place] [address] Care Team Providers Care Film Processor Name Role Phone Jayy Guzman MD Primary Care Provider [phone] Zo Tavarez HUMAN RESOURCES TRAINER Unavailable Marely Seals NP Unavailable Kandace Harvey CHIEF METEOROLOGIST Unavailable [phone] Jayy Guzman MD Unavailable [phone] Marcellus Valenzuela DO Unavailable [phone] Marcellus Valenzuela DO Primary Care Provider [phone] Marcellus Valenzuela DO Primary Care Provider [phone] Encounter Details Date Type Department Care Team (Late st Contact Info) Description 05/26/2024 Abstract [facility] [place] [facility] [address] [place] [address] Jayy Guzman MD [address] [place] [address] Social History Tobacco Use Types Packs/Day Years [...] any clubs o r organizations such as religion groups, unions, fraternal or athletic groups, or [...] Recorded Patient Health Questionnaire-2 Score 4 03/12/2024 [facility] [place] of Occupat ional Health - Occupational Stress [...] [address] [place] [address] Marcellus Valenzuela DO [address] [place] [address] documented as of this encounter Visit Diagnoses Not on filedocumented in this encounter Additional Health Concerns Assessment Noted Time PHQ-9 Depression Total Score: 10 024 10:00 AM EDT documented as of this encounter Care Teams Film Processor Relationship Specialty Start Date End Date Guzman, Jayy A, MD [address] [place] [address] PCP - General Family Medicine 12/28/22 12/16/24 Jayy Guzman MD [address] [place] [address] PCP - Carolynn KEN 02/20/24 Marcellus Valenzuela DO [address] [place] [address] PCP - General Family Medicine 12/17/24 02/16/25 Marcellus Valenzuela DO [address] [place] [address] PCP - General Family Medicine 02/17/25 Zo Tavarez LSW [address] [place] [address] Driveway Sealer Family Medicine 02/22/23 Marely Seals NP [address] [place] [address] Nurse Practitioner Family Medicine 10/24/23 10/21/24 Kandace Harvey NP [address] [place] [address] Nurse Practitioner Family Medicine 10/24/23 12/16/24 Marcellus Valenzuela DO [address] [place] [address] Referring Physician Family Medicine 05/29/24 02/16/25 documented as of this encounter
--- OUTSIDE RECORDS SUMMARY | 2025-03-29 08:09 | XMS_ITS | Encounter Summary ---
Author Organization [facility] Address [address] [place] [address] Care Team Providers Care Inspector Line Name Role Phone Jayy Guzman MD Primary Care Provider [phone] Zo Tavarez HEAD MECHANIC Unavailable Marely Seals NP Unavailable Kandace Harvey TRUCK FARMER Unavailable [phone] Jayy Guzman MD Unavailable [phone] Marcellus Valenzuela DO Unavailable [phone] Marcellus Valenzuela DO Primary Care Provider [phone] Marcellus Valenzuela DO Primary Care Provider [phone] Encounter Details Date Type Department Care Team (Late st Contact Info) Description 05/19/2024 Abstract [facility] [place] [address] [place] [address] Jayy Guzman MD [address] [place] [address] Social History Tobacco Use Types Packs/Day Years [...] Recorded Patient Health Questionnaire-2 Score 4 03/12/2024 [facility] [place] of Occupat ional Health - Occupational Stress [...] place to sleep or slept in a [place] facility (including now)? No 04/15/2023 Comments No Sex [...] [address] [place] [address] Marcellus Valenzuela DO [address] [place] [address] documented as of this encounter Visit Diagnoses Not on filedocumented in this encounter Additional Health Concerns Assessment Noted Time PHQ-9 Depression Total Score: 10 024 10:00 AM EDT documented as of this encounter Care Teams Inspector Line Relationship Specialty Start Date End Date Guzman, Jayy A, MD [address] [place] [address] PCP - General Family Medicine 12/28/22 12/16/24 Jayy Guzman MD [address] [place] [address] PCP - Carolynn KEN 02/20/24 Marcellus Valenzuela DO [address] [place] [address] PCP - General Family Medicine 12/17/24 02/16/25 Marcellus Valenzuela DO [address] [place] [address] PCP - General Family Medicine 02/17/25 Zo Tavarez LSW [address] [place] [address] Restaurant Crew Member Family Medicine 02/22/23 Marely Seals NP [address] [place] [address] Nurse Practitioner Family Medicine 10/24/23 10/21/24 Kandace Harvey NP [address] [place] [address] Nurse Practitioner Family Medicine 10/24/23 12/16/24 Marcellus Valenzuela DO [address] [place] [address] Referring Physician Family Medicine 05/29/24 02/16/25 documented as of this encounter
--- OUTSIDE RECORDS SUMMARY | 2025-03-29 08:09 | XMS_ITS | Encounter Summary ---
Author Organization [facility] Address [address] [place] [address] Care Team Providers Care Cook Pickled Meat Name Role Phone Jayy Guzman MD Primary Care Provider [phone] Zo Tavarez BRIM AND CROWN PRESSER Unavailable Marely Seals NP Unavailable Kandace Harvey NOC ENGINEER Unavailable [phone] Jayy Guzman MD Unavailable [phone] Marcellus Valenzuela DO Unavailable [phone] Marcellus Valenzuela DO Primary Care Provider [phone] Marcellus Valenzuela DO Primary Care Provider [phone] Encounter Details Date Type Department Care Team (Late st Contact Info) Description 05/12/2024 Abstract [facility] [address] [place] [address] Jayy Guzman MD [address] [place] [address] Social History Tobacco Use Types Packs/Day Years [...] How often do you attend chur or samaritan services? Patient declined 04/15/2023 Do you belong to any clubs o r organizations such as anabaptist groups, unions, fraternal or athletic groups, or [...] Recorded Patient Health Questionnaire-2 Score 4 03/12/2024 [facility] [place] of Occupat ional Health - Occupational Stress [...] [address] [place] [address] Marcellus Valenzuela DO [address] [place] [address] documented as of this encounter Visit Diagnoses Not on filedocumented in this encounter Additional Health Concerns Assessment Noted Time PHQ-9 Depression Total Score: 10 024 10:00 AM EDT documented as of this encounter Care Teams Cook Pickled Meat Relationship Specialty Start Date End Date Guzman, Jayy A, MD [address] [place] [address] PCP - General Family Medicine 12/28/22 12/16/24 Jayy Guzman MD [address] [place] [address] PCP - Carolynn KEN 02/20/24 Marcellus Valenzuela DO [address] [place] [address] PCP - General Family Medicine 12/17/24 02/16/25 Marcellus Valenzuela DO [address] [place] [address] PCP - General Family Medicine 02/17/25 Zo Tavarez LSW [address] [place] [address] Hand Bindery Assembly Worker Family Medicine 02/22/23 Marely Seals NP [address] [place] [address] Nurse Practitioner Family Medicine 10/24/23 10/21/24 Kandace Harvey NP [address] [place] [address] Nurse Practitioner Family Medicine 10/24/23 12/16/24 Marcellus Valenzuela DO [address] [place] [address] Referring Physician Family Medicine 05/29/24 02/16/25 documented as of this encounter
--- OUTSIDE RECORDS SUMMARY | 2025-03-29 08:09 | XMS_ITS | Encounter Summary ---
Author Organization [facility] Address [address] [place] [address] Care Team Providers Care Commercial Installer Name Role Phone Jayy Guzman MD Primary Care Provider [phone] Zo Tavarez METAL CEILING HANGER Unavailable Marely Seals NP Unavailable Kandace Harvey WASH BOX OPERATOR Unavailable [phone] Jayy Guzman MD Unavailable [phone] Marcellus Valenzuela DO Unavailable [phone] Marcellus Valenzuela DO Primary Care Provider [phone] Marcellus Valenzuela DO Primary Care Provider [phone] Encounter Details Date Type Department Care Team (Late st Contact Info) Description 05/12/2024 Abstract [facility] [place] [address] [place] [address] Jayy Guzman MD [address] [place] [address] Social History Tobacco Use Types Packs/Day Years [...] any clubs o r organizations such as confucianist groups, unions, fraternal or athletic groups, or [...] Score 4 03/12/2024 [facility] [place] of Occupat ional Health - Occupational Stress [...] [address] [place] [address] Marcellus Valenzuela DO [address] [place] [address] documented as of this encounter Visit Diagnoses Not on filedocumented in this encounter Additional Health Concerns Assessment Noted Time PHQ-9 Depression Total Score: 10 024 10:00 AM EDT documented as of this encounter Care Teams Commercial Installer Relationship Specialty Start Date End Date Guzman, Jayy A, MD [address] [place] [address] PCP - General Family Medicine 12/28/22 12/16/24 Jayy Guzman MD [address] [place] [address] PCP - Carolynn KEN 02/20/24 Marcellus Valenzuela DO [address] [place] [address] PCP - General Family Medicine 12/17/24 02/16/25 Marcellus Valenzuela DO [address] [place] [address] PCP - General Family Medicine 02/17/25 Zo Tavarez LSW [address] [place] [address] Lung Gun Operator Family Medicine 02/22/23 Marely Seals NP [address] [place] [address] Nurse Practitioner Family Medicine 10/24/23 10/21/24 Kandace Harvey NP [address] [place] [address] Nurse Practitioner Family Medicine 10/24/23 12/16/24 Marcellus Valenzuela DO [address] [place] [address] Referring Physician Family Medicine 05/29/24 02/16/25 documented as of this encounter
--- OUTSIDE RECORDS SUMMARY | 2025-03-29 08:09 | XMS_ITS | Encounter Summary ---
Author Organization [facility] Address [address] [place] [address] Care Team Providers Care Dentist Name Role Phone Jayy Guzman MD Primary Care Provider [phone] Jie Johnson APRN.EVENT PRODUCER Unavailable [phone] Jayy Parker MD Unavailable Unavail able Roxana Wagner RN Unavailable [phone] Source Comments In the event this information is protected by the Federal Confidentiality of Alcohol and Drug AbusePatient Records regulations: The Federal rules restrict any use of the information to criminally investigate or prosecute any alcohol or drug abuse patient.[facility] Encounter Details Date Type Department Care Team (Late st Contact Info) Description 07/19/2023 Patient [facility] Radiology Procedure [address] [place] [address] Provider, Ccf You are scheduled for a [...] is lower risk 6 12/13/2022 Data from: https://www.neighborhoodatlas.medicine.[facility].edu/. Last address used for calculation [address] [place] [address] [address] 12/13/2022 Comments No Sex and [...] on filedocumented in this encounter Care Teams Dentist Relationship Specialty Start Date End Date Jayy Guzman MD [address] [place] [address] PCP - General 09/01/09 Jie Johnson, LIQUOR COMMISSIONER.EVENT PRODUCER [address] [place] [address] Nurse Practitioner Hematology/Oncology 01/16/23 Jayy Parker MD [address] [place] [address] Physician Hematology/Oncology 01/16/23 01/25/25 Roxana Wagner, LIU [address] [place] [address] Specialty Senior Mechanical Engineer Hematology/Oncology 01/16/23 documented as of this encounter
--- OUTSIDE RECORDS SUMMARY | 2025-03-29 08:09 | XMS_ITS | Encounter Summary ---
Author Organization [facility] Address [address] [place] [address] Care Team Providers Care Production Control Expediter Name Role Phone Jayy Guzman MD Primary Care Provider [phone] Zo Tavarez CARE ADMINISTRATIVE TECH Unavailable Marely Seals NP Unavailable Kandace Harvey NURSING ASSOC Unavailable [phone] Jayy Guzman MD Unavailable [phone] Marcellus Valenzuela DO Unavailable [phone] Marcellus Valenzuela DO Primary Care Provider [phone] Marcellus Valenzuela DO Primary Care Provider [phone] Encounter Details Date Type Department Care Team (Late st Contact Info) Description 05/26/2024 [facility] [place] [facility] [address] [place] [address] Jayy Guzman MD [address] [place] [address] Social History Tobacco Use Types Packs/Day Years [...] Patient Health Questionnaire-2 Score 4 03/12/2024 [facility] [place] of Occupat ional Health - Occupational Stress [...] [address] [place] [address] Marcellus Valenzuela DO [address] [place] [address] documented as of this encounter Visit Diagnoses Not on filedocumented in this encounter Additional Health Concerns Assessment Noted Time PHQ-9 Depression Total Score: 10 024 10:00 AM EDT documented as of this encounter Care Teams Production Control Expediter Relationship Specialty Start Date End Date Guzman, Jayy A, MD [address] [place] [address] PCP - General Family Medicine 12/28/22 12/16/24 Jayy Guzman MD [address] [place] [address] PCP - Carolynn KEN 02/20/24 Marcellus Valenzuela DO [address] [place] [address] PCP - General Family Medicine 12/17/24 02/16/25 Marcellus Valenzuela DO [address] [place] [address] PCP - General Family Medicine 02/17/25 Zo Tavarez LSW [address] [place] [address] Blade Operator Family Medicine 02/22/23 Marely Seals NP [address] [place] [address] Nurse Practitioner Family Medicine 10/24/23 10/21/24 Kandace Harvey NP [address] [place] [address] Nurse Practitioner Family Medicine 10/24/23 12/16/24 Marcellus Valenzuela DO [address] [place] [address] Referring Physician Family Medicine 05/29/24 02/16/25 documented as of this encounter
--- OUTSIDE RECORDS SUMMARY | 2025-03-29 08:09 | XMS_ITS | Encounter Summary ---
Author Organization [facility] Address [address] [place] [address] Care Team Providers Care Soc Analyst Name Role Phone Jayy Guzman MD Primary Care Provider [phone] Zo Tavarez DOG BOARDER Unavailable Marely Seals NP Unavailable Kandace Harvey WELLNESS TRAINER Unavailable [phone] Jayy Guzman MD Unavailable [phone] Marcellus Valenzuela DO Unavailable [phone] Marcellus Valenzuela DO Primary Care Provider [phone] Marcellus Valenzuela DO Primary Care Provider [phone] Encounter Details Date Type Department Care Team (Late st Contact Info) Description 05/07/2024 Abstract [facility] [address] [place] [address] Jayy Guzman MD [address] [place] [address] Social History Tobacco Use Types Packs/Day Years [...] How often do you attend chur or adventist services? Patient declined 04/15/2023 Do you belong [...] Recorded Patient Health Questionnaire-2 Score 4 03/12/2024 [facility] [place] of Occupat ional Health - Occupational Stress [...] [address], [address] [place] [address] Marcellus Valenzuela DO [address] [place] [address] documented as of this encounter Visit Diagnoses Not on filedocumented in this encounter Additional Health Concerns Assessment Noted Time PHQ-9 Depression Total Score: 10 024 10:00 AM EDT documented as of this encounter Care Teams Soc Analyst Relationship Specialty Start Date End Date Guzman, Jayy A, MD [address] [place] [address] PCP - General Family Medicine 12/28/22 12/16/24 Jayy Guzman MD [address] [place] [address] PCP - Carolynn KEN 02/20/24 Marcellus Valenzuela DO [address] [place] [address] PCP - General Family Medicine 12/17/24 02/16/25 Marcellus Valenzuela DO [address] [place] [address] PCP - General Family Medicine 02/17/25 Zo Tavarez LSW [address] [place] [address] School Community Relations Coordinator Family Medicine 02/22/23 Marely Seals NP [address] [place] [address] Nurse Practitioner Family Medicine 10/24/23 10/21/24 Kandace Harvey NP [address] [place] [address] Nurse Practitioner Family Medicine 10/24/23 12/16/24 Marcellus Valenzuela DO [address] [place] [address] Referring Physician Family Medicine 05/29/24 02/16/25 documented as of this encounter
--- OUTSIDE RECORDS SUMMARY | 2025-03-29 08:10 | XMS_ITS | Encounter Summary ---
Author Organization [facility] Address [address] [place] [address] Care Team Providers Care Cigarette Package Examiner Name Role Phone Jayy Guzman MD Primary Care Provider [phone] Zo Tavarez BEATER WORKER HELPER Unavailable Marely Seals NP Unavailable Kandace Harvey TAKER DOWN Unavailable [phone] Jayy Guzman MD Unavailable [phone] Marcellus Valenzuela DO Unavailable [phone] Marcellus Valenzuela DO Primary Care Provider [phone] Marcellus Valenzuela DO Primary Care Provider Encounter Details Date Type Department Care Team (Late st Contact Info) Description 05/05/2024 [facility] [address] [place] [address] Jayy Guzman MD [address] [place] [address] Social History Tobacco Use Types Packs/Day Years [...] Recorded Patient Health Questionnaire-2 Score 4 03/12/2024 [facility] of Occupat ional Health - Occupational Stress [...] [address], [address] [place] [address] Marcellus Valenzuela DO [address] [place] [address] documented as of this encounter Visit Diagnoses Not on filedocumented in this encounter Additional Health Concerns Assessment Noted Time PHQ-9 Depression Total Score: 10 024 10:00 AM EDT documented as of this encounter Care Teams Cigarette Package Examiner Relationship Specialty Start Date End Date Guzman, Jayy A, MD [address] [place] [address] PCP - General Family Medicine 12/28/22 12/16/24 Jayy Guzman MD [address] [place] [address] PCP - Carolynn KEN 02/20/24 Marcellus Valenzuela DO [address] [place] [address] PCP - General Family Medicine 12/17/24 02/16/25 Marcellus Valenzuela DO [address] [place] [address] PCP - General Family Medicine 02/17/25 Zo Tavarez LSW [address] [place] [address] Technology Director Family Medicine 02/22/23 Marely Seals NP [address] [place] [address] Nurse Practitioner Family Medicine 10/24/23 10/21/24 Kandace Harvey NP [address] [place] [address] Nurse Practitioner Family Medicine 10/24/23 12/16/24 Marcellus Valenzuela DO [address] [place] [address] Referring Physician Family Medicine 05/29/24 02/16/25 documented as of this encounter
--- OUTSIDE RECORDS SUMMARY | 2025-03-29 08:10 | XMS_ITS | Encounter Summary ---
Author Organization [facility] Address [address] [place] [address] Care Team Providers Care Broomcorn Scraper Name Role Phone Jayy Guzman MD Primary Care Provider [phone] Zo Tavarez ANIMAL RESEARCHER Unavailable Marely Seals NP Unavailable Kandace Harvey TEACHING FELLOW Unavailable [phone] Jayy Guzman MD Unavailable [phone] Marcellus Valenzuela DO Unavailable [phone] Marcellus Valenzuela DO Primary Care Provider [phone] Marcellus Valenzuela DO Primary Care Provider [phone] Encounter Details Date Type Department Care Team [...] declined 04/15/2023 How often do you attend [facility] or sabianist services? Patient declined 04/15/2023 Do you belong [...] Recorded Patient Health Questionnaire-2 Score 4 03/12/2024 [facility] of Occupat ional [...] 1:20 PM EDT Office Visit [facility] [address], [address] [place] [address] Marcellus Valenzuela DO [address] [place] [address] documented as of this encounter Procedures Procedure [...] any questions regarding this interpretation, please call [phone]. If you are unable to reach us at the number above, please feel free to contact [facility] at [phone]. [id number]^[email or web address]^ACN Procedure Note Radiology, Radiologist, - 04/23/2024 * [...] any questions regarding this interpretation, please call [phone]. If you are unable to reach us at the number above, please feel free to contact [facility] at [phone]. [id number]^[id number]^[email or web address]^ACN us Generic External Data Provider [facility] Final Result documented in this encounter Visit Diagnoses Not on filedocumented in this encounter Additional Health Concerns Assessment Noted Time PHQ-9 Depression Total Score: 10 024 10:00 AM EDT documented as of this encounter Care Teams Broomcorn Scraper Relationship Specialty Start Date End Date Jayy Guzman MD [address] [place] [address] PCP - General Family Medicine 12/28/22 12/16/24 Jayy Gzuman MD [address] [place] [address] PCP - Carolynn KEN 02/20/24 Marcellus Valenzuela DO [address] [place] [address] PCP - General Family Medicine 12/17/24 02/16/25 Marcellus Valenzuela DO [address] [address] PCP - General Family Medicine 02/17/25 Zo Tavarez LSW [address] [place] [address] Security Manager Family Medicine 02/22/23 Marely Seals NP [address] [place] [address] Nurse Practitioner Family Medicine 10/24/23 10/21/24 Kandace Harvey NP [address] [place] [address] Nurse Practitioner Family Medicine 10/24/23 12/16/24 Marcellus Valenzuela DO [address] [place] [address] Referring Physician Family Medicine 05/29/24 02/16/25 documented as of this encounter
--- OUTSIDE RECORDS SUMMARY | 2025-03-29 08:10 | XMS_ITS | Encounter Summary ---
Author Organization [facility] Address [address] [place] [address] Care Team Providers Care Director Channel Name Role Phone Jayy Guzman MD Primary Care Provider [phone] Jayy Guzman MD Unavailable [phone] Zo Tavarez DEPARTMENT TRAFFIC FREIGHT ROUTER Unavailable Marely Seals NP Unavailable Kandace Harvey ADHESIVE BANDAGE MACHINE OPERATOR Unavailable [phone] Jayy Guzman MD Unavailable [phone] Marcellus Valenzuela DO Unavailable [phone] Marcellus Valenzuela DO Primary Care Provider Marcellus Valenzuela DO Primary Care Provider [phone] Encounter Details Date Type Department Care Team (Late st Contact Info) Description 10/01/2016 Abstract [facility] [place] [facility] [address] [place] [phone] Aniya Eaton, [facility] [address] [place] [address] Social History Tobacco Use Types Packs/Day Years Used Date Smoking Tobacco: Never Assessed Comments Unknown Sex and Gender Information Value Date Recorded Sex Assigned at Not on file Legal Sex Female 6:53 PM EDT Gender Identity Not on file Sexual Orientation Not on file documented as of this encounter Plan of Treatment Upcoming Encounters Date Type Department Care Team (Late Contact Info) Description 04/27/2025 1:20 PM EDT Office Visit [facility] [place] [facility] [address], [address] [place] [address] Marcellus Valenzuela DO [address] [place] [address] documented as of this encounter Visit Diagnoses Not on filedocumented in this encounter Care Teams Director Channel Relationship Specialty Start Date End Date Jayy Guzman MD [address] [place] [address] PCP - General Family Medicine 12/28/22 12/16/24 Jayy Guzman MD [address] [place] [address] PCP - Carolynn KEN 01/19/23 06/20/23 Jayy Guzman MD [address] [place] [address] PCP - Carolynn KEN 02/20/24 Marcellus Valenzuela DO [address] [place] [address] PCP - General Family Medicine 12/17/24 02/16/25 Marcellus Valenzuela DO [address] [facility] [address] [place] [address] PCP - General Family Medicine 02/17/25 Zo Tavarez LSW [address] [place] [address] Offline Editor Family Medicine 02/22/23 Marely Seals NP [address] [place] [address] Nurse Practitioner Family Medicine 10/24/23 10/21/24 Kandace Harvey NP [address] [place] [address] Nurse Practitioner Family Medicine 10/24/23 12/16/24 Marcellus Valenzuela DO [address] [place] [address] Referring Physician Family Medicine 05/29/24 02/16/25 documented as of this encounter
--- OUTSIDE RECORDS SUMMARY | 2025-03-29 08:10 | XMS_ITS | Encounter Summary ---
Author Organization [facility] Address [address] [place] [address] Care Team Providers Care Partner Marketing Intern Name Role Phone Jayy Guzman MD Primary Care Provider [phone] Zo Tavarez SAW GRINDER Unavailable Marely Seals NP Unavailable Kandace Harvey TODDLER CAREGIVER Unavailable [phone] Jayy Guzman MD Unavailable [phone] Marcellus Valenzuela DO Unavailable [phone] Marcellus Valenzuela DO Primary Care Provider [phone] Marcellus Valenzuela DO Primary Care Provider [phone] Encounter Details Date Type Department Care Team (Late st Contact Info) Description 03/25/2024 Abstract [facility] [place] [address] [place] [address] Jayy Guzman MD [address] [place] [address] Social History Tobacco Use Types Packs/Day Years [...] How often do you attend chur or mosque services? Patient declined 04/15/2023 Do [...] Recorded Patient Health Questionnaire-2 Score 4 03/12/2024 [facility] of Occupat ional Health - Occupational Stress [...] [address], [address] [place] [address] Marcellus Valenzuela DO [address] [place] [address] documented as of this encounter Visit Diagnoses Not on filedocumented in this encounter Additional Health Concerns Assessment Noted Time PHQ-9 Depression Total Score: 10 024 10:00 AM EDT documented as of this encounter Care Teams Partner Marketing Intern Relationship Specialty Start Date End Date Guzman, Jayy A, MD [address] [place] [address] PCP - General Family Medicine 12/28/22 12/16/24 Jayy Guzman MD [address] [place] [address] PCP - Carolynn KEN 02/20/24 Marcellus Valenzuela DO [address] [place] [address] PCP - General Family Medicine 12/17/24 02/16/25 Marcellus Valenzuela DO [address] [place] [address] PCP - General Family Medicine 02/17/25 Zo Tavarez LSW [address] [place] [address] Soa Engineer Family Medicine 02/22/23 Marely Seals NP [address] [place] [address] Nurse Practitioner Family Medicine 10/24/23 10/21/24 Kandace Harvey NP [address] [place] [address] Nurse Practitioner Family Medicine 10/24/23 12/16/24 Marcellus Valenzuela DO [address] [place] [address] Referring Physician Family Medicine 05/29/24 02/16/25 documented as of this encounter
--- OUTSIDE RECORDS SUMMARY | 2025-03-29 08:10 | XMS_ITS ---
Author Organization [facility] Address [address] [place] [address] Care Team Providers Care Cut Lace Machine Operator Name Role Phone Zo Tavarez Unavailable Jayy Guzman MD Unavailable [phone] Marcellus Valenzuela DO Primary Care Provider Chronic Care Management (CCM) Status:Enrolled (Active) Start date:02/22/2023 Enrollment date:02/22/2023 Enrollment reason:Identified as high-risk Overview Addresses patients in need of care management services. 02/22/23, 3:00 PM - PEDRO Ramires- Patient gives verbal consent to be enrolled in CCM Program. Case Team Name Relationship Phone Zo VASQUEZ(Responsible Staff) Abrasive Mixer Helper [phone] Continued Care and Services Coordination
--- OUTSIDE RECORDS SUMMARY | 2025-03-29 08:10 | XMS_ITS | Encounter Summary ---
Author Organization [facility] Address [address] [place] [address] Care Team Providers Care Flange Machine Operator Name Role Phone Jayy Guzman MD Primary Care Provider [phone] Zo Tavarez MEDICAL RECORDS FIELD TECHNICIAN Unavailable Marely Seals NP Unavailable Kandace Harvey WELDER GAS AUTOMATIC Unavailable [phone] Jayy Guzman MD Unavailable [phone] Marcellus Valenzuela DO Unavailable [phone] Marcellus Valenzuela DO Primary Care Provider [phone] Marcellus Valenzuela DO Primary Care Provider [phone] Encounter Details Date Type Department Care Team (Late st Contact Info) Description 05/14/2024 [facility] [place] [address] [place] [address] Jayy Guzman MD [address] [place] [address] Social History Tobacco Use Types Packs/Day Years [...] How often do you attend chur or temple services? Patient declined 04/15/2023 Do you belong to any clubs o r organizations such as zoroastrianism groups, unions, fraternal or athletic groups, or [...] Recorded Patient Health Questionnaire-2 Score 4 03/12/2024 [facility] [place] of Occupat ional Health - [...] [address], [address] [place] [address] Marcellus Valenzuela DO [address] [place] [address] documented as of this encounter Visit Diagnoses Not on filedocumented in this encounter Additional Health Concerns Assessment Noted Time PHQ-9 Depression Total Score: 10 024 10:00 AM EDT documented as of this encounter Care Teams Flange Machine Operator Relationship Specialty Start Date End Date Guzman, Jayy A, MD [address] [place] [address] PCP - General Family Medicine 12/28/22 12/16/24 Jayy Guzman MD [address] [place] [address] PCP - Carolynn KEN 02/20/24 Marcellus Valenzuela DO [address] [place] [address] PCP - General Family Medicine 12/17/24 02/16/25 Marcellus Valenzuela DO [address] [place] [address] PCP - General Family Medicine 02/17/25 Zo Tavarez LSW [address] [place] [address] [employer] Solutions Architect Family Medicine 02/22/23 Marely Seals NP [address] [place] [address] Nurse Practitioner Family Medicine 10/24/23 10/21/24 Kandace Harvey NP [address] [place] [address] Nurse Practitioner Family Medicine 10/24/23 12/16/24 Marcellus Valenzuela DO [address] [place] [address] Referring Physician Family Medicine 05/29/24 02/16/25 documented as of this encounter
--- OUTSIDE RECORDS SUMMARY | 2025-03-29 08:11 | XMS_ITS | Encounter Summary ---
Author Organization [facility] Address [address] [address] Phone Care Team Providers Care Logistics Service Representative Name Role Phone Jayy Guzman MD Primary Care Provider Encounter Details Date Type Department Care Team (Late st Contact Info) Description 05/28/2024 Scanned Document [facility] [address] Virtual Department [address] Scanning, Generic Provider Social History Tobacco Use [...] on filedocumented in this encounter Care Teams Logistics Service Representative Relationship Specialty Start Date End Date Jayy Guzman MD [address] [place] [address] PCP - General 03/01/15 documented as of this encounter
--- OUTSIDE RECORDS SUMMARY | 2025-03-29 08:11 | XMS_ITS | Clinical Summary ---
Author Organization [facility] Address [address] [place] [address] Phone Care Team Providers Care Roofing Foreman Name Role Phone Jayy Guzman MD Primary Care Provider [phone] Social History Tobacco Use Types Packs/Day Years [...] Done Comments CT Colonography 1952 Colonoscopy 1952 Colorectal Cancer Screening 1952 FIT-DNA (Cologuard) 1952 FIT 1952 Lipid Panel 1952 Medicare Annual Wellness Vis it (AWV) 1952 Sigmoidoscopy 1952 MMR Vaccines (1 of 1 - Stand robin series) 1953 Hepatitis C Screening 1970 Pneumococcal Vaccine (1 of 2 - PCV) 11/06/1971 DTaP/Tdap/Td Vaccines (1 - Tdap) 1974 Mammogram 1992 Zoster Vaccines (1 of 2) 2002 RSV High Risk: (Elderly (60+ ) or Population) (1 - Risk 60-74 years 1-dose series) 2012 Bone Density Scan 2017 COVID-19 Vaccine (1 - 2023-2 5 season) 2025 Influenza Vaccine (#1) 2025 HIB Vaccines Aged Out No longer eligi ble based on patient's age to complete this topic HPV Vaccines Aged Out No longer eligi ble based on patient's age to complete this topic Hepatitis A Vaccines Aged Out No long [...] Advance Directives For more information, please contact: [phone] (Available ) Documents on File Type Date Recorded Patient Certified Pathology Assistant Expl anation Healthcare Power of Atty 07/21/2021 Living Will 07/21/2021 Care Teams Roofing Foreman Relationship Specialty Start Date End Date Jayy Guzman MD [address] [place] [address] PCP - General 03/01/15
--- OUTSIDE RECORDS SUMMARY | 2025-03-29 08:11 | XMS_ITS | Encounter Summary ---
Author Organization [facility] Address [address] [place] [address] Care Team Providers Care Sales Manager Name Role Phone Jayy Guzman MD Primary Care Provider [phone] Zo Tavarez MERCHANT TAILOR Unavailable Marely Seals NP Unavailable Kandace Harvey IMAGING ANALYST Unavailable [phone] Jayy Guzman MD Unavailable [phone] Marcellus Valenzuela DO Unavailable [phone] Marcellus Valenzuela DO Primary Care Provider [phone] Marcellus Valenzuela DO Primary Care Provider [phone] Encounter Details Date Type Department Care Team (Late st Contact Info) Description 06/09/2024 Abstract [facility] [address] [place] [address] Jayy Guzman MD [address] [place] [address] Social History Tobacco Use Types Packs/Day Years [...] declined 04/15/2023 How often do you attend [facility] or baptist services? Patient declined 04/15/2023 Do you belong to any clubs o r organizations such as yarsani groups, unions, fraternal or athletic groups, or [...] Recorded Patient Health Questionnaire-2 Score 0 06/04/2024 [facility] [place] of Occupat ional Health - Occupational Stress [...] [address] [place] [address] Marcellsu Valenzuela DO [address] [place] [address] documented as of this encounter Visit Diagnoses Not on filedocumented in this encounter Additional Health Concerns Assessment Noted Time PHQ-9 Depression Total Score: 10 024 10:00 AM EDT documented as of this encounter Care Teams Sales Manager Relationship Specialty Start Date End Date Guzman, Jayy A, MD [address] [place] [address] PCP - General Family Medicine 12/28/22 12/16/24 Jayy Guzman MD [address] [place] [address] PCP - Carolynn KEN 02/20/24 Marcellus Valenzuela DO [address] [place] [address] PCP - General Family Medicine 12/17/24 02/16/25 Marcellus Valenzuela DO [address] [place] [address] PCP - General Family Medicine 02/17/25 Zo Tavarez LSW [address] [place] [address] [employer] Pinner Family Medicine 02/22/23 Marely Seals NP [address] [place] [address] Nurse Practitioner Family Medicine 10/24/23 10/21/24 Kandace Harvey NP [address] [place] [address] Nurse Practitioner Family Medicine 10/24/23 12/16/24 Marcellus Valenzuela DO [address] [place] [address] Referring Physician Family Medicine 05/29/24 02/16/25 documented as of this encounter
--- OUTSIDE RECORDS SUMMARY | 2025-03-29 08:11 | XMS_ITS | Encounter Summary ---
Author Organization [facility] Address [address] [place] [address] Care Team Providers Care Binder Fixer Name Role Phone Jayy Guzman MD Primary Care Provider [phone] Zo Tavarez DESK SERGEANT Unavailable Marely Seals NP Unavailable Kandace Harvey SALES PLANNING MANAGER Unavailable [phone] Jayy Guzman MD Unavailable [phone] Marcellus Valenzuela DO Unavailable [phone] Marcellus Valenzuela DO Primary Care Provider [phone] Marcellus Valenzuela DO Primary Care Provider [phone] Encounter Details Date Type Department Care Team (Late st Contact Info) Description 05/05/2024 Abstract [facility] [place] [address] [place] [address] Jayy Guzman MD [address] [place] [address] Social History Tobacco Use Types Packs/Day Years [...] How often do you attend chur or caodaism services? Patient declined 04/15/2023 Do you belong [...] Recorded Patient Health Questionnaire-2 Score 4 03/12/2024 [facility] [place] of Occupat ional Health - Occupational Stress [...] [address] [place] [address] Marcellus Valenzuela DO [address] [place] [address] documented as of this encounter Visit Diagnoses Not on filedocumented in this encounter Additional Health Concerns Assessment Noted Time PHQ-9 Depression Total Score: 10 024 10:00 AM EDT documented as of this encounter Care Teams Binder Fixer Relationship Specialty Start Date End Date Guzman, Jayy A, MD [address] [place] [address] PCP - General Family Medicine 12/28/22 12/16/24 Jayy Guzman MD [address] [place] [address] PCP - Carolynn KEN 02/20/24 Marcellus Valenzuela DO [address] [place] [address] PCP - General Family Medicine 12/17/24 02/16/25 Marcellus Valenzuela DO [address] [place] [address] PCP - General Family Medicine 02/17/25 Zo Tavarez LSW [address] [place] [address] Bean Snapper Family Medicine 02/22/23 Marely Seals NP [address] [place] [address] Nurse Practitioner Family Medicine 10/24/23 10/21/24 Kandace Harvey NP [address] [place] [address] Nurse Practitioner Family Medicine 10/24/23 12/16/24 Marcellus Valenzuela DO [address] [place] [address] Referring Physician Family Medicine 05/29/24 02/16/25 documented as of this encounter
--- OUTSIDE RECORDS SUMMARY | 2025-03-29 08:12 | XMS_ITS | Encounter Summary ---
Author Organization [facility] Address [address] [place] [address] Care Team Providers Care Flow Manager Name Role Phone Jayy Guzman MD Primary Care Provider [phone] Zo Tavarez HR CONSULTANT Unavailable Marely Seals NP Unavailable Kandace Harvey WHEEL ADJUSTER Unavailable [phone] Jayy Guzman MD Unavailable [phone] Marcellus Valenzuela DO Unavailable [phone] Marcellus Valenzuela DO Primary Care Provider [phone] Marcellus Valenzuela DO Primary Care Provider [phone] Encounter Details Date Type Department Care Team (Late st Contact Info) Description 06/17/2024 [facility] [place] [facility] [address] [place] [address] Jayy Guzman MD [address] [place] [address] Social History Tobacco Use Types Packs/Day Years [...] declined 04/15/2023 How often do you attend [facility] or islam services? Patient declined 04/15/2023 Do you belong to any clubs o r organizations such as oriental orthodox groups, unions, fraternal or athletic groups, or [...] Recorded Patient Health Questionnaire-2 Score 0 06/04/2024 [facility] [place] of Occupat ional Health - Occupational Stress [...] [address], [address] [place] [address] Marcellus Valenzuela DO [address] [place] [address] documented as of this encounter Visit Diagnoses Not on filedocumented in this encounter Additional Health Concerns Assessment Noted Time PHQ-9 Depression Total Score: 10 024 10:00 AM EDT documented as of this encounter Care Teams Flow Manager Relationship Specialty Start Date End Date Guzman, Jayy A, MD [address] [place] [address] PCP - General Family Medicine 12/28/22 12/16/24 Jayy Guzman MD [address] [place] [address] PCP - Carolynn KEN 02/20/24 Marcellus Valenzuela DO [address] [place] [address] PCP - General Family Medicine 12/17/24 02/16/25 Marcellus Valenzuela DO [address] [place] [address] PCP - General Family Medicine 02/17/25 Zo Tavarez LSW [address] [place] [address] Patient Services Technician Family Medicine 02/22/23 Marely Seals NP [address] [place] [address] Nurse Practitioner Family Medicine 10/24/23 10/21/24 Kandace Harvey NP [address] [place] [address] Nurse Practitioner Family Medicine 10/24/23 12/16/24 Marcellus Valenzuela DO [address] [place] [address] Referring Physician Family Medicine 05/29/24 02/16/25 documented as of this encounter
--- OUTSIDE RECORDS SUMMARY | 2025-03-29 08:12 | XMS_ITS | Encounter Summary ---
Author Organization [facility] Address [address] [place] [address] Care Team Providers Care Nursing Service Administrator Name Role Phone DaysiZo PEDRO Unavailable Jayy Guzman MD Unavailable Marcellus Valenzuela DO Primary Care Provider [phone] Encounter Details Date Type Department Care Team (Late st Contact Info) Description 02/23/2025 Abstract [facility] [address], [address] [place] [address] Marcellus Valenzuela DO [address] [facility] [address] [place] [address] Social History Tobacco Use Types Packs/Day Years [...] often do you attend chur ch or baptism services? Patient declined 04/15/2023 Do you belong to any clubs o r organizations such as sikh groups, unions, fraternal or athletic groups, or school groups? Patient declined 04/15/2023 How often do you attend meet ings of the clubs or organizations you belong to? Patient declined 04/15/2023 Are you , , di vorced, , never , or living with a partner? 04/15/2023 AUDIT-C Answer Date Recorded Q1: How often do you have a drink containing alcohol? Never 02/23/2025 Q2: How many drinks containi ng alcohol do you have on a typical day when you are drinking? Patient does not drink Q3: How often do you have si x or more drinks on one occasion? Never 02/23/2025 Overall Financial Resource Strain (CARDIA) Answe r Date Recorded How hard is it for you to pa y for the very basics like food, housing, medical care, and heating? Not hard at all 04/15/2023 PHQ-2 Answer Date Recorded Patient Health Questionnaire-2 Score 2 02/23/2025 [facility] - [facility]ational Stress Questionnaire Answer Date Recorded [...] Score Answer Date of Assessment Author 0 02/23/2025 1:30 PM EDT Rayshawn Alanis LPN * Question Answer Date of Assessment Author Q1: How often do you have a drink containing alcohol? Never 02/23/2025 1:30 PM EDT Marylou Alanis LPN Q2: How many drinks containing alcohol do you have on a typical day when you are drinking? Patient does not drink 02/23/2025 1:30 PM EDT Marylou Alanis LPN Q3: How often do you have six or more drinks on one occasion? Never 02/23/2025 1:30 PM EDT Marylou Alanis LPN * Over the past 2 weeks, how often have you been bothered by any of the following problems? Question Answer Date of Assessment Author Little interest or pleasure in doing things Several days 02/23/2025 1:37 PM EDT Marylou Alanis LPN Feeling down, depressed, or hopeless Several days 02/23/2025 1:37 PM EDT Marylou Alanis LPN Patient Health Questionnaire -2 Score 2 02/23/2025 1:37 PM EDT Marylou Alanis LPN * Question Answer Date of Assessment Author Trouble falling or staying asleep, or sleeping too much Nearly every day 02/23/2025 1:37 PM EDT Marylou Alanis LPN Feeling tired or having little energy Nearly every day 02/23/2025 1:37 PM EDT Marylou Alanis LPN Poor appetite or overeating Nearly every day 02/23/2025 1:37 PM EDT Marylou Alanis LPN Feeling bad about yourself - or that you are a failure or have let yourself or your family down Several days 02/23/2025 1:37 PM EDT Marylou Alanis LPN Trouble concentrating on things, such as reading the newspaper or watching television Several days 02/23/2025 1:37 PM EDT Marylou Alanis LPN Moving or speaking so slowly that other people could have noticed? Or the opposite - being so fidgety or restless that you have been moving around a lot more than usual. More than half the days 02/23/2025 1:37 PM EDT Marylou Alanis LPN Thoughts that you would be better off or hurting yourself in some way Several days 02/23/2025 1:37 PM EDT Marylou Alanis LP N Patient Health Questionnaire-9 Score 16 02/23/2025 1:37 PM EDT Marylou Alanis L PN * If you checked off any problems on this questionnaire so far, Question Answer Date of Assessment Author How difficult have these problems made it for you to do your work, take care of things at home, or get along with other people? Somewhat difficult 02/23/2025 1:37 PM EDT Marylou Alanis LPN documented as of this encounter Plan of Treatment Upcoming Encounters Date Type Department Care Team (Late st Contact Info) Description 04/27/2025 1:20 PM EDT Office Visit [facility] [place] [facility] [address], [facility] [address] [place] [address] Marcellus Valenzuela, [address] [place] [address] documented as of this encounter Visit Diagnoses Not on filedocumented in this encounter Additional Health Concerns Assessment Noted Time PHQ-9 Depression Total Score: 16 025 1:37 PM EDT documented as of this encounter Care Teams Nursing Service Administrator Relationship Specialty Start Date End Date Jayy Guzman MD [address] [place] [address] PCP - Carolynn KEN 02/20/24 Marcellus Valenzuela DO [address] [place] [address] [place] [address] PCP - General Family Medicine 02/17/25 Zo Tavarez LSW [address] [place] [address] Outside Parts Sales Family Medicine 02/22/23 documented as of this encounter
--- OUTSIDE RECORDS SUMMARY | 2025-03-29 08:12 | XMS_ITS | Encounter Summary ---
Author Organization [facility] Address [address] [place] [address] Care Team Providers Care Political Worker Name Role Phone DaysiZo PEDRO Unavailable Jayy Guzman MD Unavailable [phone] Marcellus Valenzuela DO Unavailable [phone] Marcellus Valenzuela DO Primary Care Provider [phone] Marcellus Valenzuela DO Primary Care Provider [phone] Encounter Details Date Type Department Care Team (Late st Contact Info) Description 02/16/2025 Abstract [facility] [address] [facility] [address] [place] [address] Marcellus Valenzuela DO [address] [facility] [address] [place] [address] Social History Tobacco Use Types Packs/Day Years [...] Recorded Patient Health Questionnaire-2 Score 0 12/24/2024 [facility] of Occupat ional Health - Occupational [...] PM EDT Office Visit [facility] [place] [facility] [address], [facility] 340 [place] [address] Marcellus Valenzuela DO [address] [place] [address] documented as of this encounter Visit Diagnoses Not on filedocumented in this encounter Additional Health Concerns Assessment Noted Time PHQ-9 Depression Total Score: 10 024 10:00 AM EDT documented as of this encounter Care Teams Political Worker Relationship Specialty Start Date End Date Jayy Guzman MD [address] [place] [address] PCP - Carolynn KEN 02/20/24 Marcellus Valenzuela DO [address] [place] [address] PCP - General Family Medicine 12/17/24 02/16/25 Marcellus Valenzuela DO [address] [address] PCP - General Family Medicine 02/17/25 Zo Tavarez LSW [address] [place] [address] Carbon Electrodes Supervisor Family Medicine 02/22/23 Marcellus Valenzuela DO [address] [place] [address] Referring Physician Family Medicine 05/29/24 02/16/25 documented as of this encounter
--- OUTSIDE RECORDS SUMMARY | 2025-03-29 08:12 | XMS_ITS | Encounter Summary ---
Author Organization [facility] Address [address] [place] [address] Care Team Providers Care Stove Bottom Worker Name Role Phone Jayy Guzman MD Primary Care Provider [phone] Zo Tavarez INTERNET MARKETING MANAGER Unavailable Marely Seals NP Unavailable Kandace Harvey CONSULTING SERVICES MANAGER Unavailable [phone] Jayy Guzman MD Unavailable [phone] Marcellus Valenzuela DO Unavailable [phone] Marcellus Valenzuela DO Primary Care Provider [phone] Marcellus Valenzuela DO Primary Care Provider [phone] Encounter Details Date Type Department Care Team (Late st Contact Info) Description 06/17/2024 Abstract [facility] [address] [place] [address] Jayy Guzman MD [address] [place] [address] Social History Tobacco Use Types Packs/Day Years [...] health [facility] or baptist services? Patient declined 04/15/2023 Do you belong to any clubs o r organizations such as shinto groups, unions, fraternal or athletic groups, or [...] Recorded Patient Health Questionnaire-2 Score 0 06/04/2024 [facility] [place] of Occupat ional Health - Occupational Stress [...] [address], [address] [place] [address] Marcellus Valenzuela DO [address] [place] [address] documented as of this encounter Visit Diagnoses Not on filedocumented in this encounter Additional Health Concerns Assessment Noted Time PHQ-9 Depression Total Score: 10 024 10:00 AM EDT documented as of this encounter Care Teams Stove Bottom Worker Relationship Specialty Start Date End Date Guzman, Jayy A, MD [address] [place] [address] PCP - General Family Medicine 12/28/22 12/16/24 Jayy Guzman MD [address] [place] [address] PCP - Carolynn KEN 02/20/24 Marcellus Valenzuela DO [address] [place] [address] PCP - General Family Medicine 12/17/24 02/16/25 Marcellus Valenzuela DO [address] [place] [address] PCP - General Family Medicine 02/17/25 Zo Tavarez LSW [address] [place] [address] Paediatric Thoracic Physician Family Medicine 02/22/23 Marely Seals NP [address] [place] [address] Nurse Practitioner Family Medicine 10/24/23 10/21/24 Kandace Harvey NP [address] [place] [address] Nurse Practitioner Family Medicine 10/24/23 12/16/24 Marcellus Valenzuela DO [address] [place] [address] Referring Physician Family Medicine 05/29/24 02/16/25 documented as of this encounter
--- OUTSIDE RECORDS SUMMARY | 2025-03-29 08:12 | XMS_ITS | Encounter Summary ---
Author Organization [facility] Address [address] [place] [address] Care Team Providers Care Aircraft Design Engineer Name Role Phone DaysiZo PEDRO Unavailable Jayy Guzman MD Unavailable [phone] Marcellus Valenzuela DO Unavailable [phone] Marcellus Valenzuela DO Primary Care Provider [phone] Marcellus Valenzuela DO Primary Care Provider [phone] Encounter Details Date Type Department Care Team (Late st Contact Info) Description 02/04/2025 Abstract [facility] [address] [facility] 340 [place] [address] Marcellus Valenzuela DO [address] [facility] [address] [place] [address] Social History Tobacco Use Types Packs/Day Years [...] How often do you attend chur or jain services? Patient declined 04/15/2023 Do you belong [...] Recorded Patient Health Questionnaire-2 Score 0 12/24/2024 [facility] of Occupat ional Health - Occupational [...] PM EDT Office Visit [facility] [facility] [address], [facility] [address] [place] [address] Marcellus Valenzuela DO [address] [place] [address] documented as of this encounter Visit Diagnoses Not on filedocumented in this encounter Additional Health Concerns Assessment Noted Time PHQ-9 Depression Total Score: 10 024 10:00 AM EDT documented as of this encounter Care Teams Aircraft Design Engineer Relationship Specialty Start Date End Date Jayy Guzman MD [address] [place] [address] PCP - Carolynn KEN 02/20/24 Marcellus Valenzuela DO [address] [place] [address] PCP - General Family Medicine 12/17/24 02/16/25 Marcellus Valenzuela DO [address] [place] [address] PCP - General Family Medicine 02/17/25 Zo Tavarez LSW [address] [place] [address] Mis Manager Family Medicine 02/22/23 Marcellus Valenzuela DO [address] [place] [address] Referring Physician Family Medicine 05/29/24 02/16/25 documented as of this encounter
--- OUTSIDE RECORDS SUMMARY | 2025-03-29 08:12 | XMS_ITS | Encounter Summary ---
Author Organization [facility] Healthcare Address [address] [place] [address] Care Team Providers Care Chemical Lab Technician Name Role Phone Zo Tavarez Unavailable Jayy Guzman MD Unavailable [phone] Marcellus Valenzuela DO Primary Care Provider [phone] Encounter Details Date Type Department Care Team (Late st Contact Info) Description 03/15/2025 Patient Outreach [facility] [address] [facility] [place] [address] Zo Tavarez LSW [address] [place] [address] Social History Tobacco Use Types Packs/Day Years [...] How often do you attend chur or faith services? 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 No answer or VM available. Mailbox full. 2nd week manuel row being unable to contact pt. Closing program and will resume monthly monitor calls. documented in this encounter Plan of Treatment Upcoming Encounters Date Type Department Care Team (Late st Contact Info) Description 04/27/2025 1:20 PM EDT Office Visit [facility] [place] [facility] [address], [address] [place] [address] Marcellus Valenzuela DO [address] [place] [address] documented as of this encounter Visit Diagnoses Diagnosis Essential (primary) hypertension- Primary Unspecified essential hypertension Stage 3 chronic kidney disease, unspecified whether stage 3a or 3b CKD (CMS-HCC) documented in this encounter Additional Health Concerns Assessment Noted Time PHQ-9 Depression Total Score: 16 025 1:37 PM EDT documented as of this encounter Care Teams Chemical Lab Technician Relationship Specialty Start Date End Date Jayy Guzman MD [address] [place] [address] PCP - Carolynn KEN 02/20/24 Marcellus Valenzuela DO [address] [facility] [place] [address] PCP - General Family Medicine 02/17/25 Zo Tavarez [place]SW [address] [place] [address] Sign Language Interpreter Family Medicine 02/22/23 documented as of this encounter
--- OUTSIDE RECORDS SUMMARY | 2025-03-29 08:12 | XMS_ITS ---
Author Organization [facility] Address [address] [place] [address] Care Team Providers Care Csr Technician Name Role Phone Zo Tavarez Unavailable Jayy Guzman MD Unavailable Marcellus Valenzuela DO Primary Care Provider 30 Day Monitoring Program Status:Closed (Closed) Start date:02/16/2025 Enrollment date:02/16/2025 End date:03/15/2025 Close reason:Unable to reach patient Continued Care and Services Coordination
--- OUTSIDE RECORDS SUMMARY | 2025-03-29 08:12 | XMS_ITS | Encounter Summary ---
Author Organization [facility] Address [address] [place] [address] Care Team Providers Care Senior It Recruiter Name Role Phone Jayy Guzman MD Primary Care Provider Zo Tavarez INCLUSION INTERNSHIP Unavailable Marely Seals NP Unavailable Kandace Harvey FINISHER SCREWDOWN Unavailable [phone] Jayy Guzman MD Unavailable [phone] Marcellus Valenzuela DO Unavailable [phone] Marcellus Valenzuela DO Primary Care Provider [phone] Marcellus Valenzuela DO Primary Care Provider Encounter Details Date Type Department Care Team (Late st Contact Info) Description 06/09/2024 Abstract [facility] [place] [facility] [address] [place] [address] Jayy Guzman MD [address] [place] [address] Social History Tobacco Use Types Packs/Day Years [...] How often do you attend [facility] or rastafarian services? Patient declined 04/15/2023 Do you belong [...] Patient Health Questionnaire-2 Score 0 06/04/2024 [facility] of Occupat ional Health - Occupational Stress [...] [address], [address] [place] [address] Marcellus Valenzuela DO [address] [place] [address] documented as of this encounter Visit Diagnoses Not on filedocumented in this encounter Additional Health Concerns Assessment Noted Time PHQ-9 Depression Total Score: 10 024 10:00 AM EDT documented as of this encounter Care Teams Senior It Recruiter Relationship Specialty Start Date End Date Guzman, Jayy A, MD [address] [place] [address] PCP - General Family Medicine 12/28/22 12/16/24 Jayy Guzman MD [address] [place] [address] PCP - Carolynn KEN 02/20/24 Marcellus Valenzuela DO [address] [place] [address] PCP - General Family Medicine 12/17/24 02/16/25 Marcellus Valenzuela DO [address] [place] [address] PCP - General Family Medicine 02/17/25 Zo Tavarez LSW [address] [place] [address] Boy'S Adviser Family Medicine 02/22/23 Marely Seals NP [address] [place] [address] Nurse Practitioner Family Medicine 10/24/23 10/21/24 Kandace Harvey NP [address] [place] [address] Nurse Practitioner Family Medicine 10/24/23 12/16/24 Marcellus Valenzuela DO [address] [place] [address] Referring Physician Family Medicine 05/29/24 02/16/25 documented as of this encounter
--- OUTSIDE RECORDS SUMMARY | 2025-03-29 08:12 | XMS_ITS | Clinical Summary ---
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
--- OUTSIDE RECORDS SUMMARY | 2025-03-29 08:12 | XMS_ITS | Encounter Summary ---
Author Organization [facility] Address [address] [place] [address] Care Team Providers Care Semiconductor Development Technician Name Role Phone DaysiZo PEDRO Unavailable Jayy Guzman MD Unavailable [phone] Marcellus Valenzuela DO Unavailable [phone] Marcellus Valenzuela DO Primary Care Provider [phone] Marcellus Valenzuela DO Primary Care Provider [phone] Encounter Details Date Type Department Care Team (Late st Contact Info) Description 02/08/2025 Abstract [facility] [address] [facility] 340 [place] [address] Marcellus Valenzuela DO [address] [facility] [address] [place] [address] Social History Tobacco Use Types Packs/Day Years [...] How often do you attend chur or oriental orthodox services? Patient declined 04/15/2023 Do you belong to any clubs o r organizations such as evangelical groups, unions, fraternal or athletic groups, or [...] Recorded Patient Health Questionnaire-2 Score 0 12/24/2024 [facility] of Occupat ional Health - Occupational Stress [...] PM EDT Office Visit [facility] [place] [facility] [address], [facility] 340 [place] [address] Marcellus Valenzuela DO [address] [place] [address] documented as of this encounter Visit Diagnoses Not on filedocumented in this encounter Additional Health Concerns Assessment Noted Time PHQ-9 Depression Total Score: 10 024 10:00 AM EDT documented as of this encounter Care Teams Semiconductor Development Technician Relationship Specialty Start Date End Date Jayy Guzman MD [address] [place] [address] PCP - Carolynn KEN 02/20/24 Marcellus Valenzuela DO [address] [place] [address] PCP - General Family Medicine 12/17/24 02/16/25 Marcellus Valenzuela DO [address] [place] [address] PCP - General Family Medicine 02/17/25 Zo Tavarez LSW [address] [place] [address] Oil Field Equipment Mechanic Supervisor Family Medicine 02/22/23 Marcellus Valenzuela DO [address] [place] [address] Referring Physician Family Medicine 05/29/24 02/16/25 documented as of this encounter
--- OUTSIDE RECORDS SUMMARY | 2025-03-29 08:13 | XMS_ITS | Clinical Summary ---
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 Other and unspecified hyperlipidemia Immunizations Immunization Administration Dates Next Due diphtheria [...] is lower risk 6 12/13/2022 Data from: https://www.neighborhoodatlas.medicine.[facility].edu/. Last address used for calculation [address] [place] [address] [address] 12/13/2022 Comments No Sex and [...] 03/31/2013, 07/22/1995 LDL Cholesterol 01/26/2024 01/25/2023, 01/25/2023 Advance Directive Discussion 07/22/2024 Medicare Advantage Annual We llness Visit 07/22/2024 Influenza Vaccine (#1) 2025 Diabetes Screening 05/05/2027 05/05/2024, 0 04/14/2024, 03/24/2024, Additional history exists Lipid Screening 01/26/2028 01/25/2023, 01/25/2023 Hepatitis C Screening Completed 03/31/2001 Medical Devices Implanted Type Area Top Lift Compresser Device Identifier Shelf Expiration Date Model / [...] COMPREHENSIVE METABOLIC PANEL (05/05/2024 12:39 PM EDT) [facility] Protein, Total 6.0(L) 6.3 - 8.0 g/dL 05/05/2024 1:16 PM EDT [facility] Albumin 3.8(L) 3.9 - 4.9 g/dL 05/05/2024 1:16 PM EDT [facility] Calcium, Total 8.7 8.5 - 10.2 mg/dL 05/05/2024 1:16 PM EDT [facility] Bilirubin, Total 0.5 0.2 - 1.3 mg/dL 05/05/2024 1:16 PM EDT [facility] Alkaline Phosphatase 76 34 - 123 U/L 05/05/2024 1:16 PM EDT [facility] AST 16 13 - 35 U/L 05/05/2024 1:16 PM EDT [facility] ALT 19 7 - 38 U/L 05/05/2024 1:16 PM EDT [facility] Glucose 87 74 - 99 mg/dL 05/05/2024 1:16 PM EDT [facility] Comment: The [place] Diabetes Association (ADA) provides guidance for cutoff [...] Standards of Medical Care in Diabetes 2016, [place] Diabetes Association. Diabetes Care. 2016.39(Suppl 1). BUN 44(H) 7 - 21 mg/dL 05/05/2024 1:16 PM EDT [facility] Creatinine 1.50(H) 0.58 - 0.96 mg/dL 05/05/2024 1:16 PM EDT [facility] Sodium 143 136 - 144 mmol/L 05/05/2024 1:16 PM EDT [facility] Potassium 4.0 3.7 - 5.1 mmol/L 05/05/2024 1:16 PM EDT [facility] Chloride 103 98 - 107 mmol/L 05/05/2024 1:16 PM EDT [facility] CO2 32(H) 22 - 30 mmol/L 05/05/2024 1:16 PM EDT [facility] Anion Gap 8 8 - 15 mmol/L 05/05/2024 1:16 PM EDT [facility] Estimated Glomerular Filtration Rate 37(L) >=60 mL/min/1. 73m 05/05/2024 1:16 PM EDT [facility] Comment:Estimated Glomerular Filtration Rate [...] us Mehnaz Browning PA-C LABORATORY Final Result [facility] [address] [place] [address] * (ABNORMAL) HEP REMOTE PANEL BL (03/31/2001 3:23 PM EDT) Hep B Core Ab, Total Negative NEG [facility] Hep C Antibody IA Negative NEG [facility] HBsAg Negative NEG [facility] Hep B Surface Ab, Qual Positive(A) NEG [facility] Comment: A positive Hepatitis B Surface Antibody or a result of > or = 10 mIU/mL implies immunity to HBV. For additional information and guidelines see MMWR 1990,39(RR-2) 1-23, August 30, 1989. Interpretation (Hep Remote Pnl) These results are consistent with previous exposure and immunity to the [facility] Comment:hepatitis B virus an tigen, as seen for example secondary to vaccination. 03/31/2001 3:23 PM EDT us Martinez Hayes Jr., MD LABORATORY Final Res ult [facility] [address] [place] [address] from Last 3 Months or Most Recently Relevant to Health Maintenance Insurance [employer] PPO Care Teams Wireless Manager Relationship Specialty Start Date End Date Jayy Guzman MD [address] [place] [address] PCP - General 09/01/09 Jie Johnson APRN.CHILDREN'S TUTOR NURSERY [address] [place] [address] Nurse Practitioner Hematology/Oncology 01/16/23 Roxana Wagner RN [address] [place] [address] Specialty Insurance Broker Hematology/Oncology 01/16/23
--- OUTSIDE RECORDS SUMMARY | 2025-03-29 08:13 | XMS_ITS | Encounter Summary ---
Author Organization [facility] Address [address] [place] [address] Care Team Providers Care Night Auditor Name Role Phone Jayy Guzman MD Primary Care Provider [phone] Zo Tavarez FILTER PULP WASHER Unavailable Kandace Harvey PROFESSIONAL WRESTLER Unavailable [phone] Jayy Guzman MD Unavailable [phone] Marcellus Valenzuela DO Unavailable [phone] Marcellus Valenzuela DO Primary Care Provider [phone] Marcellus Valenzuela DO Primary Care Provider [phone] Encounter Details Date Type Department Care Team (Late st Contact Info) Description 11/09/2024 Abstract [facility] [address] [place] [address] Jayy Guzman MD [address] [place] [address] Social History Tobacco Use Types Packs/Day Years [...] How often do you attend chur or buddhism services? Patient declined 04/15/2023 Do you belong [...] Recorded Patient Health Questionnaire-2 Score 2 11/09/2024 [facility] [place] of Occupat ional Health - Occupational Stress [...] of Assessment Author 0 11/09/2024 1:01 PM Rayshawn Morales LPN * Question Answer Date of Assessment Author Q1: How often do you have a drink containing alcohol? Never 11/09/2024 1:01 PM Marylou Morales LPN Q2: How many drinks containing alcohol do you have on a typical day when you are drinking? Patient does not drink 11/09/2024 1:01 PM Marylou Morales LPN Q3: How often do you have six or more drinks on one occasion? Never 11/09/2024 1:01 PM Marylou Morales LPN * Over the past 2 weeks, how often have you been bothered by any of the following problems? Question Answer Date of Assessment Author Little interest or pleasure in doing things Several days 11/09/2024 1:07 PM EDT Marylou Alanis LPN Feeling down, depressed, or hopeless Several days 11/09/2024 1:07 PM EDT Marylou Alanis LPN Patient Health Questionnaire -2 Score 2 11/09/2024 1:07 PM EDT Marylou Alanis LPN * If you checked off any problems on this questionnaire so far, Question Answer Date of Assessment Author How difficult have these problems made it for you to do your work, take care of things at home, or get along with other people? Very difficult 11/09/2024 1:07 PM EDT Marylou Alanis LPN documented as of this encounter Plan of Treatment Upcoming Encounters Date Type Department Care Team (Late st Contact Info) Description 04/27/2025 1:20 PM EDT [facility] [address], [facility] [address] [place] [address] Marcellus Valenzuela DO [address] [facility] [address] [place] [address] documented as of this encounter Visit Diagnoses Not on filedocumented in this encounter Additional Health Concerns Assessment Noted Time PHQ-9 Depression Total Score: 10 024 10:00 AM EDT documented as of this encounter Care Teams Night Auditor Relationship Specialty Start Date End Date Jayy Guzman MD [address] [place] [address] PCP - General Family Medicine 12/28/22 12/16/24 Jayy Guzman MD [address] [place] [address] PCP - aCrolynn KEN 02/20/24 Marcellus Valenzuela DO [address] [place] [address] PCP - General Family Medicine 12/17/24 02/16/25 Marcellus Valenzuela DO [address] [place] [address] PCP - General Family Medicine 02/17/25 Zo Tavarez, PEDRO [address] [place] [address] Assistant Professor Of Dietetics Family Medicine 02/22/23 Kandace Harvey NP [address] [place] [address] Nurse Practitioner Family Medicine 10/24/23 12/16/24 Marcellus Valenzuela DO [address] [place] [address] Referring Physician Family Medicine 05/29/24 02/16/25 documented as of this encounter
--- OUTSIDE RECORDS SUMMARY | 2025-03-29 08:13 | XMS_ITS | Encounter Summary ---
Author Organization [facility] Address [address] [place] [address] Care Team Providers Care Vp Integration Name Role Phone Jayy Guzman MD Primary Care Provider [phone] Zo Tavarez DEVELOPMENT EXECUTIVE Unavailable Kandace Harvey RN PICU Unavailable [phone] Jayy Guzman MD Unavailable [phone] Marcellus Valenzuela DO Unavailable [phone] Marcellus Valenzuela DO Primary Care Provider [phone] Marcellus Valenzuela DO Primary Care Provider [phone] Encounter Details Date Type Department Care Team (Late st Contact Info) Description 11/25/2024 Abstract [facility] [address] [place] [address] Jayy Guzman MD [address] [place] [address] Social History Tobacco Use Types Packs/Day Years [...] How often do you attend chur or denominational services? Patient declined 04/15/2023 Do you belong to any clubs o r organizations such as orthodoxy groups, unions, fraternal or athletic groups, or [...] Recorded Patient Health Questionnaire-2 Score 2 11/09/2024 [facility] of Occupat ional Health - Occupational Stress [...] [facility] [address], [address] [place] [address] Marcellus Valenzuela DO [address] [place] [place] [address] documented as of this encounter Visit Diagnoses Not on filedocumented in this encounter Additional Health Concerns Assessment Noted Time PHQ-9 Depression Total Score: 10 024 10:00 AM EDT documented as of this encounter Care Teams Vp Integration Relationship Specialty Start Date End Date Jayy Guzman MD [address] [place] [address] PCP - General Family Medicine 12/28/22 12/16/24 Jayy Guzman MD [address] [place] [address] PCP - Carolynn KEN 02/20/24 Marcellus Valenzuela DO [address] [place] [address] PCP - General Family Medicine 12/17/24 02/16/25 Marcellus Valenzuela DO [address] [place] [address] PCP - General Family Medicine 02/17/25 Zo Tavarez LSW [address] [place] [address] Project Financial Analyst Family Medicine 02/22/23 Kandace Harvey, RN PICU [address] [place] [address] Nurse Practitioner Family Medicine 10/24/23 12/16/24 Marcellus Valenzuela DO [address] [place] [address] Referring Physician Family Medicine 05/29/24 02/16/25 documented as of this encounter
--- OUTSIDE RECORDS SUMMARY | 2025-03-29 08:13 | XMS_ITS | Encounter Summary ---
Author Organization [facility] Address [address] [facility] [place] [address] Care Team Providers Care Desktop Analyst Name Role Phone Jayy Guzman MD Primary Care Provider [phone] Zo Tavarez WOOD CARVING LATHE OPERATOR Unavailable Kandace Harvey BRAKE REPAIRER RAILROAD Unavailable [phone] Jayy Guzman MD Unavailable [phone] Marcellus Valenzuela DO Unavailable [phone] Marcellus Valenzuela DO Primary Care Provider [phone] Marcellus Valenzuela DO Primary Care Provider [phone] Encounter Details Date Type Department Care Team (Late st Contact Info) Description 11/14/2024 Results Follow-Up [facility] [address] [place] [address] Marcellus Valenzuela DO [address] [facility] [address] [place] [address] XR lumbar spine 4+ views w flexion extension Social History Tobacco Use Types Packs/Day Years [...] any clubs o r organizations such as denominational groups, unions, fraternal or athletic groups, or [...] Recorded Patient Health Questionnaire-2 Score 2 11/09/2024 [facility] [place] of Occupat ional Health - Occupational Stress [...] [address], [place] [place] [address] Marcellus Valenzuela DO [address] [place] [address] [place] [address] documented as of this encounter Visit Diagnoses Not on filedocumented in this encounter Additional Health Concerns Assessment Noted Time PHQ-9 Depression Total Score: 10 024 10:00 AM EDT documented as of this encounter Care Teams Desktop Analyst Relationship Specialty Start Date End Date Jayy Guzman MD [address] [place] [address] PCP - General Family Medicine 12/28/22 12/16/24 Jayy Guzman MD [address] [place] [address] PCP - Carolynn KEN 02/20/24 Marcellus Valenzuela DO [address] [place] [address] PCP - General Family Medicine 12/17/24 02/16/25 Marcellus Valenzuela DO [address] [place] [address] PCP - General Family Medicine 02/17/25 Zo Tavarez LSW [address] [place] [address] Ophthalmic Medical Technician Family Medicine 02/22/23 Kandace Harvey NP [address] [place] [address] Nurse Practitioner Family Medicine 10/24/23 12/16/24 Marcellus Valenzuela DO [address] [place] [address] Referring Physician Family Medicine 05/29/24 02/16/25 documented as of this encounter
--- OUTSIDE RECORDS SUMMARY | 2025-03-29 08:14 | XMS_ITS | Encounter Summary ---
Author Organization [facility] Address [address] [place] [address] Care Team Providers Care Middle School Spanish Teacher Name Role Phone Jayy Guzman MD Primary Care Provider [phone] Zo Tavarez SKIP LOADER Unavailable Marely Seals NP Unavailable Kandace Harvey GAMMA FACILITIES OPERATOR Unavailable [phone] Jayy Guzman MD Unavailable [phone] Marcellus Valenzuela DO Unavailable [phone] Marcellus Valenzuela DO Primary Care Provider [phone] Marcellus Valenzuela DO Primary Care Provider [phone] Encounter Details Date Type Department Care Team (Late st Contact Info) Description 07/02/2024 Abstract [facility] [address] [place] [phone] Jayy Guzman MD [address] [place] [address] Social History Tobacco Use Types Packs/Day Years [...] declined 04/15/2023 How often do you attend [facility] or presybeterian services? Patient declined 04/15/2023 Do you belong to any clubs o r organizations such as samaritan groups, unions, fraternal or athletic groups, or [...] Health Questionnaire-2 Score 0 06/04/2024 [facility] [place] of Occupat ional Health - Occupational Stress [...] [address], [address] [place] [address] Marcellus Valenzuela DO [address] [place] [address] documented as of this encounter Visit Diagnoses Not on filedocumented in this encounter Additional Health Concerns Assessment Noted Time PHQ-9 Depression Total Score: 10 024 10:00 AM EDT documented as of this encounter Care Teams Middle School Spanish Teacher Relationship Specialty Start Date End Date Guzman, Jayy A, MD [address] [place] [address] PCP - General Family Medicine 12/28/22 12/16/24 Jayy Guzman MD [address] [place] [address] PCP - Carolynn KEN 02/20/24 Marcellus Valenzuela DO [address] [place] [address] PCP - General Family Medicine 12/17/24 02/16/25 Marcellus Valenzuela DO [address] [place] [address] PCP - General Family Medicine 02/17/25 Zo Tavarez LSW [address] [place] [address] Surveying Crew Stake Runner Family Medicine 02/22/23 Marely Seals NP [address] [place] [address] Nurse Practitioner Family Medicine 10/24/23 10/21/24 Kandace Harvey NP [address] [place] [address] Nurse Practitioner Family Medicine 10/24/23 12/16/24 Marcellus Valenzuela DO [address] [place] [address] Referring Physician Family Medicine 05/29/24 02/16/25 documented as of this encounter
--- OUTSIDE RECORDS SUMMARY | 2025-03-29 08:14 | XMS_ITS | Encounter Summary ---
Author Organization [facility] Address [address] [place] [address] Care Team Providers Care Tail Dogger Name Role Phone Jayy Guzman MD Primary Care Provider [phone] Zo Tavarez PHLEBOTOMY COORDINATOR Unavailable Marely Seals NP Unavailable Kandace Harvey TOUCH UP PAINTER HAND Unavailable [phone] aJyy Guzman MD Unavailable [phone] Marcellus Valenzuela DO Unavailable [phone] Marcellus Valenzuela DO Primary Care Provider Marcellus Valenzuela DO Primary Care Provider [phone] Encounter Details Date Type Department Care Team (Late st Contact Info) Description 06/21/2024 Abstract [facility] [address] [place] [address] Jayy Guzman MD [address] [place] [address] Social History Tobacco Use Types Packs/Day Years [...] declined 04/15/2023 How often do you attend [facility] or pentecostal services? Patient declined 04/15/2023 Do you belong [...] Recorded Patient Health Questionnaire-2 Score 0 06/04/2024 [facility] [place] of Occupat ional Health - Occupational Stress [...] [address], [address] [place] [address] Marcellus Valenzuela DO [address] [place] [place] [address] documented as of this encounter Visit Diagnoses Not on filedocumented in this encounter Additional Health Concerns Assessment Noted Time PHQ-9 Depression Total Score: 10 024 10:00 AM EDT documented as of this encounter Care Teams Tail Dogger Relationship Specialty Start Date End Date Guzman, Jayy A, MD [address] [place] [address] PCP - General Family Medicine 12/28/22 12/16/24 Jayy Guzman MD [address] [place] [address] PCP - Carolynn KEN 02/20/24 Marcellus Valenzuela DO [address] [place] [address] PCP - General Family Medicine 12/17/24 02/16/25 Marcellus Valenzuela DO [address] [place] [address] PCP - General Family Medicine 02/17/25 Zo Tavarez LSW [address] [place] [address] Payroll Associate Family Medicine 02/22/23 Marely Seals NP [address] [place] [address] Nurse Practitioner Family Medicine 10/24/23 10/21/24 Kandace Harvey NP [address] [place] [address] Nurse Practitioner Family Medicine 10/24/23 12/16/24 Marcellus Valenzuela DO [address] [place] [address] Referring Physician Family Medicine 05/29/24 02/16/25 documented as of this encounter
--- OUTSIDE RECORDS SUMMARY | 2025-03-29 08:14 | XMS_ITS | Encounter Summary ---
Author Organization [facility] Address [address] [place] [address] Care Team Providers Care Wedding Planner Name Role Phone Jayy Guzman MD Primary Care Provider [phone] Zo Tavarez METALLIC YARN SLITTING MACHINE OPERATOR Unavailable Marely Seals NP Unavailable Kandace Harvey DIRECTOR OF DESIGN Unavailable [phone] Jayy Guzman MD Unavailable [phone] Marcellus Valenzuela DO Unavailable [phone] Marcellus Valenzuela DO Primary Care Provider Marcellus Valenzuela DO Primary Care Provider [phone] Encounter Details Date Type Department Care Team (Late st Contact Info) Description 09/15/2024 Abstract [facility] [address] [place] [address] Jayy Guzman MD [address] [place] [address] Social History Tobacco Use Types Packs/Day Years [...] Recorded Patient Health Questionnaire-2 Score 0 07/29/2024 [facility] [place] of Occupat ional Health - Occupational Stress [...] [address], [address] [place] [address] Marcellus Valenzuela DO [address] [place] [address] documented as of this encounter Visit Diagnoses Not on filedocumented in this encounter Additional Health Concerns Assessment Noted Time PHQ-9 Depression Total Score: 10 024 10:00 AM EDT documented as of this encounter Care Teams Wedding Planner Relationship Specialty Start Date End Date Guzman, Jayy A, MD [address] [place] [address] PCP - General Family Medicine 12/28/22 12/16/24 Jayy Guzman MD [address] [place] [address] PCP - Carolynn KEN 02/20/24 Marcellus Valenzuela DO [address] [place] [address] PCP - General Family Medicine 12/17/24 02/16/25 Marcellus Valenzuela DO [address] [place] [address] PCP - General Family Medicine 02/17/25 Zo Tavarez LSW [address] [place] [address] Breakfast Manager Family Medicine 02/22/23 Marely Seals NP [address] [place] [address] Nurse Practitioner Family Medicine 10/24/23 10/21/24 Kandace Harvey NP [address] [place] [address] Nurse Practitioner Family Medicine 10/24/23 12/16/24 Marcellus Valenzuela DO [address] [place] [address] Referring Physician Family Medicine 05/29/24 02/16/25 documented as of this encounter
--- OUTSIDE RECORDS SUMMARY | 2025-03-29 08:14 | XMS_ITS | Encounter Summary ---
Author Organization [facility] Address [address] [place] [address] Care Team Providers Care Mounting Inspector Name Role Phone Jayy Guzman MD Primary Care Provider [phone] Zo Tavarez ELECTRICAL APPRENTICE Unavailable Marely Seals NP Unavailable Kandace Harvey ESTATE PLANNING PARALEGAL Unavailable [phone] Jayy Guzman MD Unavailable [phone] Marcellus Valenzuela DO Unavailable [phone] Marcellus Valenzuela DO Primary Care Provider [phone] Marcellus Valenzuela DO Primary Care Provider [phone] Encounter Details Date Type Department Care Team (Late st Contact Info) Description 06/21/2024 Abstract [facility] [address] [place] [address] Jayy Guzman MD [address] [place] [address] Social History Tobacco Use Types Packs/Day Years [...] How often do you attend [facility] or gnosticist services? Patient declined 04/15/2023 Do [...] Recorded Patient Health Questionnaire-2 Score 0 06/04/2024 [facility] [place] of Occupat ional Health - Occupational Stress [...] [address], [address] [place] [address] Marcellus Valenzuela DO [address] [place] [address] documented as of this encounter Visit Diagnoses Not on filedocumented in this encounter Additional Health Concerns Assessment Noted Time PHQ-9 Depression Total Score: 10 024 10:00 AM EDT documented as of this encounter Care Teams Mounting Inspector Relationship Specialty Start Date End Date Guzman, Jayy A, MD [address] [place] [address] PCP - General Family Medicine 12/28/22 12/16/24 Jayy Guzman MD [address] [place] [address] PCP - Carolynn KEN 02/20/24 Marcellus Valenzuela DO [address] [place] [address] PCP - General Family Medicine 12/17/24 02/16/25 Marcellus Valenzuela DO [address] [place] [address] PCP - General Family Medicine 02/17/25 Zo Tavarez LSW [address] [place] [address] Lightning Rod Installer Family Medicine 02/22/23 Marely Seals NP [address] [place] [address] Nurse Practitioner Family Medicine 10/24/23 10/21/24 Kandace Harvey NP [address] [place] [address] Nurse Practitioner Family Medicine 10/24/23 12/16/24 Marcellus Valenzuela DO [address] [place] [address] Referring Physician Family Medicine 05/29/24 02/16/25 documented as of this encounter
--- OUTSIDE RECORDS SUMMARY | 2025-03-29 08:14 | XMS_ITS | Encounter Summary ---
Author Organization [facility] Address [address] [place] [address] Care Team Providers Care Case Preparer And Liner Name Role Phone Jayy Guzman MD Primary Care Provider [phone] Zo Tavarez TAR KETTLE RUNNER Unavailable Kandace Harvey TRACER BULLET CHARGING MACHINE OPERATOR Unavailable [phone] Jayy Guzman MD Unavailable [phone] Marcellus Valenzuela DO Unavailable [phone] Marcellus Valenzuela DO Primary Care Provider [phone] Marcellus Valenzuela DO Primary Care Provider [phone] Encounter Details Date Type Department Care Team (Late st Contact Info) Description 11/04/2024 Abstract [facility] [address] [place] [id number] Jayy Guzman MD [address] [place] [address] Social History Tobacco Use Types Packs/Day Years [...] any clubs o r organizations such as nondenominational groups, unions, fraternal or athletic groups, or [...] Recorded Patient Health Questionnaire-2 Score 0 10/26/2024 [facility] [place] of Occupat ional Health - Occupational Stress [...] place to sleep or slept in a long-term (including now)? No 04/15/2023 Comments No Sex [...] [address], [address] [place] [address] Marcellus Valenzuela DO [address] [place] [address] documented as of this encounter Visit Diagnoses Not on filedocumented in this encounter Additional Health Concerns Assessment Noted Time PHQ-9 Depression Total Score: 10 024 10:00 AM EDT documented as of this encounter Care Teams Case Preparer And Liner Relationship Specialty Start Date End Date Jayy Guzman MD [address] [place] [address] PCP - General Family Medicine 12/28/22 12/16/24 Jayy Guzman MD [address] [place] [address] PCP - Carolynn KEN 02/20/24 Marcellus Valenzuela DO [address] [place] [address] PCP - General Family Medicine 12/17/24 02/16/25 Marcellus Valenzuela DO [address] [place] [address] PCP - General Family Medicine 02/17/25 oZ Tavarez LSW [address] [place] [address] Cfo Controller Family Medicine 02/22/23 Kandace Harvey, TRACER BULLET CHARGING MACHINE OPERATOR [address] [place] [address] Nurse Practitioner Family Medicine 10/24/23 12/16/24 Marcellus Valenzuela DO [address] [place] [address] Referring Physician Family Medicine 05/29/24 02/16/25 documented as of this encounter
--- OUTSIDE RECORDS SUMMARY | 2025-03-29 08:14 | XMS_ITS | Encounter Summary ---
Author Organization [facility] Address [address] [facility] [place] [address] Care Team Providers Care Director Of Recreation Therapy Name Role Phone Jayy Guzman MD Primary Care Provider [phone] Zo Tavarez SALES SUPERVISOR Unavailable Kandace Harvey DIETARY ASSISTANT Unavailable [phone] Jayy Guzman MD Unavailable [phone] Marcellus Valenzuela DO Unavailable [phone] Marcellus Valenzuela DO Primary Care Provider [phone] Marcellus Valenzuela DO Primary Care Provider [phone] Encounter Details Date Type Department Care Team (Late st Contact Info) Description 11/03/2024 Abstract [facility] [place] [facility] [address] [place] [address] Marcellus Valenzuela DO [address] [address] [place] [address] Social History Tobacco Use Types Packs/Day Years [...] How often do you attend chur or tenriism services? Patient declined 04/15/2023 Do [...] Recorded Patient Health Questionnaire-2 Score 0 10/26/2024 [facility] [place] of Occupat ional Health - Occupational Stress [...] [address], [address] [place] [address] Marcellus Valenzuela DO [address] [place] [address] documented as of this encounter Visit Diagnoses Not on filedocumented in this encounter Additional Health Concerns Assessment Noted Time PHQ-9 Depression Total Score: 10 024 10:00 AM EDT documented as of this encounter Care Teams Director Of Recreation Therapy Relationship Specialty Start Date End Date Jayy Guzman MD [address] [place] [address] PCP - General Family Medicine 12/28/22 12/16/24 Jayy Guzman MD [address] [place] [address] PCP - Carolynn KEN 02/20/24 Marcellus Valenzuela DO [address] [place] [address] PCP - General Family Medicine 12/17/24 02/16/25 Marcellus Valenzuela DO [address] [place] [address] PCP - General Family Medicine 02/17/25 Zo Tavarez LSW [address] [place] [address] Utility Tech Family Medicine 02/22/23 Kandace Harvey, DIETARY ASSISTANT [address] [place] [address] Nurse Practitioner Family Medicine 10/24/23 12/16/24 Marcellus Valenzuela DO [address] [place] [address] Referring Physician Family Medicine 05/29/24 02/16/25 documented as of this encounter
--- OUTSIDE RECORDS SUMMARY | 2025-03-29 08:15 | XMS_ITS | Encounter Summary ---
Author Organization [facility] Address [address] [facility] [address] Care Team Providers Care Flexboard Operator Name Role Phone DaysiZo PEDRO Unavailable Jayy Guzman MD Unavailable [phone] Marcellus Valenzuela DO Unavailable [phone] Marcellus Valenzuela DO Primary Care Provider [phone] Marcellus Valenzuela DO Primary Care Provider [phone] Encounter Details Date Type Department Care Team (Late st Contact Info) Description 01/07/2025 Abstract [facility] [address] [place] [address] [place] [phone] Marcellus Valenzuela DO [address] [address] [place] [address] Social History Tobacco Use Types Packs/Day Years [...] Recorded Patient Health Questionnaire-2 Score 0 12/24/2024 [facility] of Occupat ional Health - Occupational [...] Family Practice [address], [facility] [address] [place] [address] Marcellus Valenzuela DO [address] [place] [address] documented as of this encounter Visit Diagnoses Not on filedocumented in this encounter Additional Health Concerns Assessment Noted Time PHQ-9 Depression Total Score: 10 024 10:00 AM EDT documented as of this encounter Care Teams Flexboard Operator Relationship Specialty Start Date End Date Jayy Guzman MD [address] [place] [address] PCP - Carolynn KEN 02/20/24 Marcellus Valenzuela DO [address] [place] [address] PCP - General Family Medicine 12/17/24 02/16/25 Marcellus Valenzuela DO [address] [place] [address] PCP - General Family Medicine 02/17/25 Zo Tavarez LSW [address] [place] [address] Plastics Nurse Family Medicine 02/22/23 Marcellus Valenzuela DO [address] [place] [address] Referring Physician Family Medicine 05/29/24 02/16/25 documented as of this encounter
--- OUTSIDE RECORDS SUMMARY | 2025-03-29 08:15 | XMS_ITS | Encounter Summary ---
Author Organization [facility] Address [address] [facility] [place] [address] Care Team Providers Care Refund Specialist Name Role Phone DaysiZo PEDRO Unavailable Jayy Guzman MD Unavailable [phone] Marcellus Valenzuela DO Unavailable [phone] Marcellus Valenzuela DO Primary Care Provider [phone] Marcellus Valenzuela DO Primary Care Provider [phone] Encounter Details Date Type Department Care Team (Late st Contact Info) Description 01/07/2025 Abstract [facility] [address] [place] [phone] Marcellus Valenzuela DO [address] [address] [place] [address] Social History Tobacco Use Types Packs/Day Years [...] How often do you attend chur or sabianist services? Patient declined 04/15/2023 Do [...] Questionnaire-2 Score 0 12/24/2024 [facility] of Occupat ional Health - Occupational [...] Family Practice [address], [facility] [address] [place] [address] Marcellus Valenzuela DO [address] [place] [address] documented as of this encounter Visit Diagnoses Not on filedocumented in this encounter Additional Health Concerns Assessment Noted Time PHQ-9 Depression Total Score: 10 024 10:00 AM EDT documented as of this encounter Care Teams Refund Specialist Relationship Specialty Start Date End Date Jayy Guzman MD [address] [place] [address] PCP - Carolynn KEN 02/20/24 Marcellus Valenzuela DO [address] [place] [address] PCP - General Family Medicine 12/17/24 02/16/25 Marcellus Valenzuela DO [address] [place] [address] PCP - General Family Medicine 02/17/25 Zo Tavarez LSW [address] [place] [address] Sewer Pipe Press Operator Family Medicine 02/22/23 Marcellus Valenzuela DO [address] [place] [address] Referring Physician Family Medicine 05/29/24 02/16/25 documented as of this encounter
--- OUTSIDE RECORDS SUMMARY | 2025-03-29 08:15 | XMS_ITS | Encounter Summary ---
Author Organization [facility] Address [address] [place] [address] Care Team Providers Care Primary Care Provider Name Role Phone Jayy Guzman MD Primary Care Provider [phone] Zo Tavarez SAFETY PIN ASSEMBLING MACHINE OPERATOR Unavailable aMrely Seals NP Unavailable Kandace Harvey BAKER CHEF Unavailable [phone] Jayy Guzman MD Unavailable [phone] Marcellus Valenzuela DO Unavailable [phone] Marcellus Valenzuela DO Primary Care Provider [phone] Marcellus Valenzuela DO Primary Care Provider [phone] Encounter Details Date Type Department Care Team (Late st Contact Info) Description 07/03/2024 Abstract [facility] [place] [facility] [address] [place] [phone] Jayy Guzman MD [address] [place] [address] Social History Tobacco Use Types Packs/Day Years [...] 04/15/2023 How often do you attend [facility] or mandaen services? Patient declined 04/15/2023 Do [...] Health Questionnaire-2 Score 0 06/04/2024 [facility] [place] of Occupat ional Health - Occupational Stress [...] [address], [address] [place] [address] Marcellus Valenzuela DO [address] [place] [address] documented as of this encounter Visit Diagnoses Not on filedocumented in this encounter Additional Health Concerns Assessment Noted Time PHQ-9 Depression Total Score: 10 024 10:00 AM EDT documented as of this encounter Care Teams Primary Care Provider Relationship Specialty Start Date End Date Guzman, Jayy A, MD [address] [place] [address] PCP - General Family Medicine 12/28/22 12/16/24 Jayy Guzman MD [address] [place] [address] PCP - Carolynn KEN 02/20/24 Marcellus Valenzuela DO [address] [place] [address] PCP - General Family Medicine 12/17/24 02/16/25 Marcellus Valenzuela DO [address] [place] [address] PCP - General Family Medicine 02/17/25 Zo Tavarez LSW [address] [place] [address] Petroleum Refinery Operator Family Medicine 02/22/23 Marely Seasl NP [address] [place] [address] Nurse Practitioner Family Medicine 10/24/23 10/21/24 Kandace Harvey NP [address] [place] [address] Nurse Practitioner Family Medicine 10/24/23 12/16/24 Marcellus Valenzuela DO [address] [place] [address] Referring Physician Family Medicine 05/29/24 02/16/25 documented as of this encounter
--- OUTSIDE RECORDS SUMMARY | 2025-03-29 08:16 | XMS_ITS | Clinical Summary ---
Author Organization [facility] Address [address] [place] [address] Care Team Providers Care Link Assembler Name Role Phone Zo Tavarez PEDRO Unavailable Jayy Guzman MD Unavailable [phone] Marcellus Valenzuela DO Primary Care Provider [phone] Allergies Active Allergy Reactions Criticality Noted Date Comments Acetaminophen 05/05/2024 Other Reaction(s): Hypertension Carvedilol 01/30/2025 Other Reaction(s): foot drop slurring words, dry mouth Latex Itching,Rash Low 08/13/2023 Other Reaction(s): Rash Morphine Unknown High 09/08/2009 Other Reaction(s): Hallucinating Nickel 05/05/2024 Other Reaction(s): Rash Nsaids 05/05/2024 Other Reaction(s): Hypertension Sulfa Antibiotics Unknown,Anaphylaxis High 1 Medications amiodarone (Pacerone) 200 MG tablet Take 100 mg by mouth Daily 4 Active ALPRAZolam (Xanax) 0.5 MG tabletIndications:A nxiety and depression Take 1 tablet (0.5 mg) by mouth in the morning and 1 tablet (0.5 mg) before bedtime. 60 tablet 5 Active aspirin 81 MG EC tablet Daily 5 Active cloNIDine (Catapres) 0.1 MG tablet Take 0.1 mg by mouth Daily as needed for high blood pressure 5 Active lisinopril 5 MG tablet Take 5 mg by mouth Daily as needed 5 Active metoprolol succinate XL (Toprol-XL) 50 MG 24 hr tablet Take 50 mg by mouth in the morning and 50 mg before bedtime. 5 Active ferric gluconate (Ferrlecit) 12.5 MG/ML injection Q7D 5 Active ondansetron ODT (Zofran-ODT) 4 MG disintegrating tablet Take 4 mg by mouth every 6 (six) hours if needed 5 Active senna-docusate (Mora-Colace) 8.6-50 MG tablet Take 1 tablet by mouth Daily 5 Active apixaban (Eliquis) 5 MG tablet Take 5 mg by mouth in the morning and 5 mg before bedtime. 5 Active rosuvastatin (Crestor) 5 MG tabletIndications:C erebrovascular accident (CVA), unspecified mechanism (HCC) Take 1 tablet (5 mg) by mouth Daily for 10 days, THEN 2 tablets (10 mg) Daily for 20 days. 50 tablet Active Active Problems Problem Noted Date Diagnosed Date Abdominal pain 02/16/2025 Counseling regarding advance care planning and goals of care 02/16/2025 Ectatic abdominal aorta 02/16/2025 End stage renal failure on dialysis 02/16/2025 HOCM (hypertrophic obstructive cardiomyopathy) 0 02/16/2025 Iron deficiency anemia 02/16/2025 Left hemiplegia 02/16/2025 Left leg weakness 02/16/2025 Mild cognitive impairment 02/16/2025 Stroke-like symptoms 02/16/2025 Vomiting 02/16/2025 Acute right arterial ischemi c stroke, anterior cerebral artery (SHERMAN) 02/16/2025 CVA (cerebral vascular accident) 02/16/2025 Assessment & Plan (02/23/2025 4:15 PM EDT): - Stroke managed with secondary prevention measures. - Continue aspirin 81 mg daily, Eliquis 5 mg twice daily, and statin therapy for secondary prevention. Cardiology follow-up scheduled for April 08, 2025. - Statin intolerance due to myalgia with prior use of atorvastatin (Lipitor). - offered different alternatives including hydrophilic version of statins to hopefully decrease this risk of muscle pain. Patient amenable to trial of rosuvastatin at low dose with slow titration. Advise to report any significant muscle pain; medication to be discontinued if intolerable symptoms recur. - Risks and side effects: Risk of recurrent myalgia discussed; patient expressed hesitancy but agreed to cautious trial. Orders: rosuvastatin (Crestor) 5 MG tablet; Take 1 tablet (5 mg) by mouth Daily for 10 days, THEN 2 tablets (10 mg) Daily for 20 days. Arteriosclerosis of coronary artery 02/16/2025 History of heart bypass surgery 02/16/2025 Overview (02/16/2025): cabg x3 Abnormal positron emission tomography of right l beka 05/25/2024 Renal failure 05/25/2024 Acute respiratory failure with hypoxemia 024 Adenocarcinoma of lung 05/25/2024 Altered mental status 05/25/2024 Anxiety 05/25/2024 Claudication of both lower extremities Critical illness myopathy 05/25/2024 Disorder 05/25/2024 Elevated troponin 05/25/2024 Hematoma of neck 05/25/20[address] lung nodules on CT 05/25/2024 Pleural effusion 05/25/2024 Polymyalgia rheumatica ([facility]) 05/25/2024 Pulmonary hypertension 05/25/2024 Renal artery stenosis, [place], bilateral 024 Rheumatoid arthritis 05/25/2024 S/P CABG [...] 01/28/2023 Lumbago of lumbar region with sciatica Occlusion and stenosis of unspecified carotid ar [...] 01/30/2021 Anemia of chronic renal failure 12/03/2018 Chronic anticoagulation 12/03/2018 Atherosclerosis of coronary artery without angin a pectoris 12/03/2018 Chronic kidney disease due to hypertension 12/03 Diastolic dysfunction 11/16/2017 Essential hypertension 10/09/2017 Overview [...] today with fewer fluctuations. Assessment & Plan (02/23/2025 4:15 PM EDT): Patient is to follow closely with Cardiology and Nephrology for blood pressure. She is to let me know if there are major fluctuations in blood pressure. For now we will continue blood pressure regimen including b.I.d. metoprolol 50 mg and p.r.n. lisinopril for high blood pressure days Assessment & Plan (12/24/2024 10:00 PM EDT): [...] before bedtime. Cardiomegaly 05/27/2017 Hypertensive heart disease 02/01/2017 Major depression, single episode 02/01/2017 Vitamin D deficiency 08/23/2016 Chronic mastoiditis of left side 07/09/2016 Hearing loss 05/29/2016 Lung cancer 07/05/2015 Chronic fatigue 05/18/2015 Chronic pain syndrome 05/18/2015 Assessment & Plan (12/24/2024 10:00 PM EDT): Pt requested refill on norco for chronic pain, pdmp checked and no red flags, refills sent Orders: HYDROcodone-acetaminophen ([place]) 5-325 MG tablet; Take 1 tablet by mouth every 6 (six) hours if needed for severe pain Anemia of renal disease 09/11/2009 Overview (01/28/2023): 09/11/09 - III unit PRBC possible GI source. TIA (transient ischemic attack) 09/08/2009 Resolved Problems Problem Noted Date Diagnosed Date Resolved Date Hypertensive urgency 02/16/2025 025 Pseudomonas aeruginosa infection 05/25/2024 05/25/2024 Slurred speech 05/25/2024 05/25/2024 BMI 30.0-30.9,adult 01/28/2023 01/29/20 23 IBS (irritable bowel syndrome) 01/28/2023 04/16/2023 Atherosclerosis of [place] co ronary artery of [place] heart without angina pectoris 12/21/202204/2023 Obesity (BMI 30.0-34.9) 12/21/2022 07 Difficult intubation 12/21/2022 023 History of carotid endarterectomy 12/21/2022 01/28/2023 Arteriosclerosis of kidney 03/03/2021 0 01/28/2023 Paroxysmal atrial fibrillation 12/03/2018 03/13/2024 Class 1 [...] Encounters Date Type Department Care Team Description 03/15/2025 Patient Outreach [place] [id number] [place] [address] Zo Tavarez LSW 03/09/2025 Patient Outreach [place] [address] [place] [address] Zo Tavarez LSW 03/02/2025 Patient Outreach [place] [address] [place] [address] Zo Tavarez LSW 02/24/2025 Telephone [facility] [address], [address] [place] [address] Keara Burgos MA 02/23/2025 1:20 PM EDT Follow-Up [facility] 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, [address] [place] [address] Marcellus Valenzuela DO 02/23/2025 Patient Outreach [place] [address] [place] [address] Zo Tavarez LSW 02/16/2025 Abstract [facility] [address], [address] [place] [address] Marcellus Valenzuela, DO 02/16/2025 Patient Outreach [facility] [address] [place] [address] Casandra Jung RN 02/12/2025 Patient Outreach [facility] [address] [place] [address] Zo Tavarez LSW 02/08/2025 Abstract [facility] [address], [address] [place] [address] Marcellus Valenzuela, DO 02/04/2025 Patient Outreach [facility] [address] [place] [address] Zo Tavarez, PEDRO 02/04/2025 Abstract [facility] [address], [address] [place] [address] Marcellus Valenzuela, DO 01/18/2025 Clinisync Result Encounter [facility] External Department Unsolicited Provider, Generic External Data 01/07/2025 Abstract [facility] [address] [place] [address] Marcellus Valenzuela, DO 01/07/2025 Abstract [facility] [address] [place] [address] Marcellus Valenzuela, DO 01/07/2025 Patient Outreach [place] [address] [place] [address] Zo Tavarez, PEDRO from Last 3 Months Immunizations Immunization Administration [...] How often do you attend chur or holiness services? Patient declined 04/15/2023 Do you belong [...] Recorded Patient Health Questionnaire-2 Score 2 02/23/2025 [facility] - Occupational Stress Questionnaire Answer Date [...] Sign Reading Time Taken Comments Blood Pressure 110/72 02/23/2025 1:39 PM EDT Pulse 75 02/23/2025 1:39 PM EDT Temperature 35.9 C (96.6 F) 02/23/2025 1:39 PM EDT Respiratory Rate 20 02/23/2025 1:39 PM EDT Oxygen Saturation 99% 02/23/2025 1:39 PM EDT Inhaled Oxygen Concentration - - Weight 56.7 kg (125 lb) 02/23/2025 1:39 PM EDT Height 160 cm (5' 3 ) 02/23/2025 1:39 PM EDT Body Mass Index 22.14 02/23/2025 1:39 PM EDT Plan of Treatment Upcoming Encounters Date Type Department Care Team (Late st Contact Info) Description 04/27/2025 1:20 PM EDT Office Visit [facility] [address], [address] [place] [address] Marcellus Valenzuela, [address] [place] [address] Health Maintenance Due Date Last Done Comments CT Colonography 1950 Colonoscopy 1950 FIT 1950 FOBT 1950 Sigmoidoscopy 1950 Pneumococcal Vaccine: 65+ Ye ars (1 of 2 - PCV) 11/06/1971 Mammogram 03/17/2020 03/17/2019, 03/17/2019 Colorectal Cancer Screening 12/29/2021 FIT-DNA 12/29/2021 12/29/2018, 12/29/2018 Influenza Vaccine (#1) 2025 Procedures Procedure Name Priority Date/Time Associated Diagnosis Comments ALL POTASSIUM Routine 01/18/2025 7:54 AM EDT BI MAMMOGRAM SCREENING BILATERAL Routine 03/17/2019 Generalized anxiety disorder Body mass index (BMI) 30.0-30.9, adult Encounter for screening mammogram for malignant neoplasm of breast Lumbago with sciatica, unspecified side LAB COLOGUARD COLON CANCER SCREEN Routine 12/29/2018 from Last 3 Months or Most Recently Relevant to Health Maintenance Results * (ABNORMAL) ALL POTASSIUM (01/18/2025 7:54 AM EDT) POTASSIUM 6.2(HH) 3.5 - 5.1 mmol/L TB Comment:RESULTS CALLED TO BE JOEY LOPEZ RN 01/18/2025 7:54 AM EDT 01/18/2025 9:01 AM EDT Narrative [facility] - 01/18/2025 9:15 AM EDT us Generic External Data Provider [facility] * Bilateral screening mammogram (03/17/2019) Anatomical Region [...] Kameron Olivera M.D.03/17/2019 5:37 PM Dictation Location: [facility] Transcribed By: [facility] 03/17/19 1737 Dictated By: Kameron Olivera MD 03/17/19 1727 Signed By: <Electronically signed by MD Kameron Olivera in OV> 03/17/19 1737 Narrative 03/17/2019 12:00 AM EDT PERFORMED AT [facility] LOCATION:[address] [address] Mammography Report Signed Patient: Lupe Butler MR#: [id number] 1 : 1950 Acct:[id number] Age/Sex: 68 / F ADM Date: 03/17/19 Loc: [place] Room: Type: REG CLI Attending Dr: FADI Glasgow APRNC Ordering Provider: Akiko Sánchez APRN, CNP Date [...] Note CONVERSION, GENERIC - 01/25/[address] [facility] LOCATION:[address] [address] Mammography Report Signed Patient: Lupe ButlerMR#: [id number] 1 : 1950cct:[id number] Age/Sex: 68 / FADM Date: 03/17/19 Loc: [place] Room:Type: REG CLI Attending Dr: TAZ Glasgow APRN Ordering Provider: [...] Kameron Olivera M.D.03/17/2019 5:37 PM Dictation Location: [facility] Transcribed By: [facility] 03/17/19 173 Dictated By: Kameron Olivera MD 03/17/19 172 Signed By: <Electronically signed by MD Kameron Olivera in OV> 03/17/191736 us Akiko Sánchez NP IMG BI PROCEDURES Final Resu lt * Cologuard?? colon cancer screening (12/29/2018) COLOGUARD RESULT REPORTABLE Negative Not Applicable [facility] Comment: A negative result indicates [...] Mckenzie et al, N Engl J Med 2014;370(14):2387-3172) COLOGUARD RE-SCREENING RECOMMENDATION: Periodic routine colorectal cancer screening is an important part of preventive healthcare for asymptomatic persons at average risk for colorectal cancer. Following a negative Cologuard result, the [place] [employer] and U.S. Multi-Society Task Force screening guidelines recommend a Cologuard re-screening interval of 3 years. References: [place] [employer] (ACS). Colorectal cancer prevention and early detection. [place], [place]: [place] [employer]; [updated 2015Nov 12]. https://www.cancer.org/cancer/ygghb-itqkar-tvqoaa/huuthexpz-pmnqdaado-digmuua/ac s-rec ommendations.html. Accessed March 21, 2018; Cl PHILLIP, Kirstin ZAPATA, Abdoul HAGAN, Colorectal Cancer Screening: Recommendations for Physicians and Patients from the U.S. Multi-Society Task Force on Colorectal Cancer Screening, Am J Gastroenterology 2017; 112:5907-8615. Test Type: Composite algorithmic analysis of stool [...] can be accessed at the following location: www.[place]ade.uk/results. Additional description of the Cologuard test process, warnings and precautions can be found at www.cologuardtest.com. Rx Only. 12/29/2018 us Akiko Sánchez PRODUCT TECHNOLOGY SCIENTIST LAB MOLECULAR DIAGNOSTICS OR DERABLES Final Result [facility] from Last 3 Months or Most Recently Relevant to Health Maintenance Insurance [employer] Care Teams Link Assembler Relationship Specialty Start Date End Date Jayy Guzman MD [address] [place] [address] PCP - Carolynn KEN 02/20/24 Marcellus Valenzuela DO [address] [facility] [place] [address] PCP - General Family Medicine 02/17/25 Zo Tavarez LSW [address] [place] [address] [facility] 02/22/23
--- OUTSIDE RECORDS SUMMARY | 2025-03-29 08:16 | XMS_ITS | Encounter Summary ---
Author Organization [facility] Address [address] [place] [address] Care Team Providers Care Bitumen Plant Operator Name Role Phone Jayy Guzman MD Primary Care Provider [phone] Jayy Guzman MD Unavailable [phone] Zo Tavarez TRAINING CONSULTANT Unavailable Marely Seals NP Unavailable Kandace Harvey WEATHERIZATION OPERATIONS MANAGER Unavailable [phone] Jayy Guzman MD Unavailable [phone] Marcellus Valeznuela DO Unavailable [phone] Marcellus Valenzuela DO Primary Care Provider Marcellus Valenzuela DO Primary Care Provider Encounter Details Date Type Department Care Team (Late st Contact Info) Description 12/25/2022 Clinisync Result Encounter NOMS External Department Unsolicited Jayy Guzman MD [address] [place] [address] Social History Tobacco Use Types Packs/Day Years [...] Description 04/27/2025 1:20 PM EDT [facility] [address], [facility] [address] [place] [address] Duong Valenzuelael, DO [address] [facility] [place] [address] documented as of this encounter Procedures Procedure [...] Routine 12/25/2022 11:05 AM EDT [facility] CYTOLOGY NON-MINE CAR REPAIRER Routine 12/25/2022 11:02 AM EDT BRONCHOSCOPY 12/25/2022 10:45 AM EDT documented in this encounter Results * [facility] FISH FOR ALK (2P23) THINPREP NSCLC (12/25/2022 11:14 AM EDT) [facility] FISH FOR ALK (2P23) THINPREP NSCLC [facility] Comment: FISH FOR ALK (2P23) THINPREP NSCLC Laboratory Accession Number: [id number] Case: [id number] Sample Type: FNA Sample Description: Transbronchial, FNA, [...] scored manually. REFERENCES: 1) Miguelangel EL, Javier YSarahJ, Genny DR, et al. Anaplastic Lymphoma Kinase Inhibition in Amp-Khrsj-Dtok Lung Cancer. N Engl J Med 2010;363:2987-1804. 2) Zara NI, Brittany PT, Reba MN, et al. Molecular Testing Guideline for the Selection of Lung Cancer Patients for EGFR and ALK Tyrosine Kinase Inhibitors: Guideline from the College of Taj[place] Pathologists, International Association for the Study of Lung Cancer, and Association for Molecular Pathology. J Mol Diagn 2013;15:415-53. 3) NCCN Clinical Practice Guidelines in Oncology: Non-Small Cell Lung Cancer, National Comprehensive Cancer Network, Inc. Available at NCCN.org. 4) Benjamin SJ, Jeremías M, Leodan S, et al. Unique clinicopathologic features characterize ALK-rearranged lung adenocarcinoma in the western population. Clin Cancer Res 2009;15:9415-6687. LIMITATIONS: This test will not identify all rearrangements in ALK. Rare, cryptic abnormalities may be below the resolution of the assay, or may otherwise be undetected. Specimen size, quality or representativeness can affect the quality of the results. DISCLAIMER: This test was developed and its performance characteristics determined by the [facility] [place] ([facility]). It has not been cleared or approved by the FDA. [facility] is regulated under CLIA as qualified to perform high- complexity testing. This test is used for clinical purposes. It should not be regarded as investigational or for research. Interpretation performed at [facility], [address] [place] [address]. CLIA Number: [id number] As reviewed by Byron Corbett MD, PhD 12/25/2022 11:1 4 AM EDT 12/28/2022 10:35 PM EDT Narrative CLINISYNC - 01/08/2023 7:02 PM EDT Specimen Type: SPECIMEN OBTAINED BY ASPIRATION Ordering Facility: [facility] Address: [address] [place] [address] Original Ordering Provider: ANGEL ARNOLD Generic External Data Provider SHELBY Woody alfonso Result SHELBY [facility] [address] [facility] [address] [place] [address] * [facility] LUNG CANCER HOTSPOT GENE PANEL CYTOLOGY (12/25/2022 11:14 AM EDT) [facility] LUNG CANCER HOTSPOT GENE PANEL CYTOLOGY [facility] Comment: Lung Cancer Hotspot Gene Panel Laboratory Accession Number: [id number] Case #: [id number] Part ID: B Sample Type: FNA % [...] In-frame deletions within exon 19 and the [id number] mutation in exon 21 account for 90% [...] MB, et al. J Mol Diagn 2013;15:415-53; Domingaa S, Clyde D, Tabatha R. Lancet Oncol 2015;16:e342-51; Boolell V, Nestoreer M, Aguillon DN, et al. Cancers 2015;7:1815-46; [...] (Margi J, et al. J Clin Oncol 2013;31:6308-2733; Gabriel SAida S. Betty Oncol 2012;23(March (Suppl. 10)):m451-3708. Maryanne WHermila. Lancet Oncol 2011;12:175-80) refs 16, 22.). KRAS [...] are rarely found in combination with other chain saw driver mutations such as EGFR, BRAF, HER2, ALK and ROS1 rearrangements. Activating KRAS mutations may be an adverse prognostic marker in lung adenocarcinoma, and appear to predict non responsiveness to anti-EGFR tyrosine kinase inhibitors. (NCCN Clinical Practice Guidelines in Oncology: Non-Small Cell Lung Cancer, available at NCCN.org; Sal NI, Brittany PT. Reba MB, et al. J Mol Diagn 2013;15:415-53; Suhnkocatherinea S, Clyde D, Tabatha R. Lancet Oncol 2015;16:e342-51; Jose F V, Kailash M, Aguillon DN, et al. Cancers 2015;7:1815-46; FEBS J 2010;277:301-8; Riely GJ, Springer LEDESMA. Cancer. Clin Cancer Res 2015;21:2221-6; Jeramy C, Andrei FAJARDO, Fellowes A, et al. Transl Lung Cancer Res 2015;4:126-41; Juana A, Keerthi L, Nuryssta S, et al. J Clin Oncol 2011;29:3574-9; Sangeeta ROMERO, Danelle J, Maryanne W. Proc Am Thorac Soc 2009;6:201-5.) MET (MET Tatiana-Oncogene) encodes a receptor tyrosine kinase (RTK) and may be activated via the binding of its ligand-hepatocyte growth factor (HGF). Activated MET phosphorylates its substrates and results in the activation of multiple signaling pathways, including the PT2J-JCP-jNGF (cell survival) and the UST-KXZ-ZQN-ERK (cell proliferation) and FAK (cell adhesion and [...] utilizing the custom Cancer Hotspot Panel v.1 ([employer], [place], [place]), DNA sequencing of gene mutation hotspot regions was performed on the MiSeq instrument ([employer], [place], [place]). Bizzby software ([employer], [place], [place]) was used to analyze FASTQ files [...] developed and its performance characteristics determined by [facility] [place] ([facility]). It has not been cleared or approved by the FDA. [facility] is regulated under CLIA as certified to perform high- complexity testing. This test is used for clinical purposes. It should not be regarded as investigational or for research. Testing and interpretation performed at [facility], [address] [place] [address]. CLIA Number: [id number] As reviewed by Charis Martin, PhD, [facility] 12/25/2022 11:1 4 AM EDT 12/28/2022 10:35 PM EDT Narrative SHELBY - 01/04/2023 4:27 PM EDT Specimen Type: SPECIMEN OBTAINED BY ASPIRATION Ordering Facility: [facility] Address: [address] [place] [address] Original Ordering Provider: ANGEL ARNOLD us Generic External Data Provider SHELBY hamilton Result SHELBY [address] [place], [place] [id number] * [facility] PD-L1 22C3 (12/25/2022 11:05 AM EDT) [facility] PD-L1 BY IMMUNOHISTOCHEMISTY [facility] Comment: Immunohistochemistry for PD-L1 expression Tumor Cells Positive: 95% Block Analyzed: A1 PD-L1 Clone: 22C3 Comment: N/A Immunohistochemistry was performed on formalin fixed paraffin-embedded tissue using the mouse monoclonal antibody 22C3 ([employer] / TLL; [place], [place]) followed by ultrasensitive bright field detection (Optiview with amplification [[employer], [place]]). Criteria for interpretation require that tumor cells show membrane staining of any intensity for PD-L1. Laboratory Developed Test (LDT) Disclaimer: Performance characteristics of immunohistochemical, immunofluorescent and chromogenic in-situ hybridization tests have been determined by the performing laboratory within [facility] [place] ([facility], [facility], [facility], [facility], [facility], or [facility]) in a manner consistent with CLIA requirements. [...] EDT Specimen Type: TISSUE SPECIMEN Ordering Facility: [facility] Address: [address] [place] [address] Original Ordering Provider: ANGEL ARNOLD us Generic External Data Provider SHELBY hamilton Result CLINISYDANIEL [facility] [address] [facility] [address] [place] [address] * [facility] ROS1 GENE REARRANGEMENT (12/25/2022 11:05 AM EDT) [facility] ROS1 GENE REARRANGEMENT [facility] Comment: FISH for ROS1(6q22) Laboratory Accession Number: [id number] Case: [id number] Block: A1 Sample Type: FFPET Sample Description: [...] New Engl J Med 2014;21:1963-71 3) Jeramy Jackson, et al. Molecular methods for somatic mutation testing in lung adenocarcinoma: EGFR and beyond. Transl Lung Cacer Res 2015;4:126-41 4) Donn Asencio, Fei Arriola, Jen Jackson, et al. ROS1 [...] and its performance characteristics determined by the [facility] [place] ([facility]). It has not been cleared or approved by the FDA. [facility] is regulated under CLIA as qualified to perform high- complexity testing. This test is used for clinical purposes. It should not be regarded as investigational or for research. Interpretation performed at [facility], [facility] [place] [address]. CLIA Number: [id number] As reviewed by Byron Corbett MD, PhD 12/25/2022 11:0 5 AM EDT 01/01/2023 2:03 PM EDT [facility] CLINISYNC - 01/10/2023 5:40 PM EDT Specimen Type: TISSUE SPECIMEN Ordering Facility: [facility] Address: [address] [place] [address] Original Ordering Provider: ANGEL ARNOLD Generic External Data Provider MEGHANAISYNC Woody inal Result Performing Organization Address [facility] de Phone Number SHELBY CABALLERO [address] [address] * [facility] AP SENDOUTS (12/25/2022 11:05 AM EDT) [facility] AP SENDOUTS [facility] Comment: At the request of Dr. Lupe Rodriguez, slides from block A1 of this case were sent to [facility] for FISH for RET testing and the results will be available in the patient's EMR when complete. 12/25/2022 11:0 5 AM EDT 01/01/2023 10:47 AM EDT Narrative CLINISYNC - 01/10/2023 9:01 AM EDT Specimen Type: TISSUE SPECIMEN Ordering Facility: [facility] Address: [address] [place] [address] Original Ordering Provider: ANGEL ARNOLD Generic External Data Provider CLINISYNC F inal Result Performing Organization Address [facility] de Phone Number SHELBY HDZ [address] [address] * [facility] SURGICAL PATHOLOGY (12/25/2022 11:05 AM EDT) [facility] CASE REPORT [facility] Comment: Surgical Pathology Report Case: [id number] Authorizing Provider: Angel Arnold MD Collected: 12/25/2022 11:05 AM Ordering Location: [facility] Received: 12/25/2022 01:30 PM Endoscopy - [...] been determined by the performing laboratory within [facility] [place] ([facility], [facility], [facility], [facility], [facility], or [facility]) in a manner consistent with CLIA requirements. [...] in one cassette. Gross examination performed at [facility], [address] [place], [place] [id number] 12/25/2022 5:08 PM [facility] CLINICAL HISTORY [facility] Comment: Pre-op diagnosis: Adenopathy [R59.9] [facility] FINAL PERFORMING LAB [facility] Comment: Diagnostic interpretation performed at [address] [address] [facility]# [id number] [place] Department Supervisor: Geovanni Dumont M.D. 12/25/2022 11:0 5 AM EDT 12/25/2022 3:07 PM EDT Narrative SHELBY - 12/27/2022 5:41 PM EDT Specimen Type: TISSUE SPECIMEN Ordering Facility: [facility] Address: [address] [place] [address] Original Ordering Provider: ANGEL ARNOLD us Generic External Data Provider SHELBY hamilton Result SHELBY HDZ [address] [facility] [address] [place] [address] * [facility] CYTOLOGY NON-MINE CAR REPAIRER (12/25/2022 11:02 AM EDT) [facility] CASE REPORT [facility] Comment: Medical Cytology Report Case: [id number] Authorizing Provider: Angel Arnold MD Collected: 12/25/2022 11:02 AM Ordering Location: [facility] Received: 12/25/2022 11:43 AM Endoscopy - [...] COMMENT See also related surgical pathology report [id number] with diagnostic concurrence. Molecular studies are pending [...] discrete evaluation episode. Intra-procedural assessment performed at [facility], [place] [address] C[facility] ORDER COMMENT [facility] Comment: Pre-op diagnosis: Adenopathy [R59.9] [facility] FINAL PERFORMING LAB [facility] Comment: Technical component, tire assembler screening performed at [facility], [place] [address] [place]# [id number] Diagnostic interpretation performed at [facility], [address] [id number] [place]# [id number] [place] Department Supervisor: Mike Barragan M.D. 12/25/2022 11:0 2 AM EDT 12/25/2022 11:56 AM EDT Narrative CLINISYNC - 12/28/2022 8:13 AM EDT Specimen Type: SPECIMEN OBTAINED BY ASPIRATION Ordering Facility: [facility] Address: [address] [place] [address] Original Ordering Provider: ANGEL ARNOLD us Generic External Data Provider SHELBY hamilton Result CLINTableNOWDANIEL F [address] [id number] * BRONCHOSCOPY (12/25/2022 10:45 AM EDT) Anatomical Region Laterality Modality Other 12/25/2022 10:4 5 AM EDT Narrative 12/25/2022 11:39 AM EDT [facility] Patient Name: Lupe Butler Procedure Date: 12/25/2022 10:45 AM Date of : 1950 Admit Type: Outpatient Age: 72 Room: [facility] Room 2 Gender: Female Attending MD: Angel [...] End: 11:19:31 AM Procedure Note Radiology, Radiologist, MD - 12/25/2022 [facility] Patient Name: Lupe Butler Procedure Date: 12/25/2022 10:45 AM Date of : 1950 Admit Type: Outpatient Age: 72 Room: [facility] Room 2 Gender: Female Attending MD: Angel [...] on filedocumented in this encounter Care Teams Bitumen Plant Operator Relationship Specialty Start Date End Date Jayy Guzman MD [address] [place] [address] PCP - General Family Medicine 12/28/22 12/16/24 Jayy Guzman MD [address] [place] [address] PCP - Carolynn KEN 01/19/23 06/20/23 Jayy Guzman MD [address] [place] [address] PCP - Carolynn KEN 02/20/24 Marcellus Valenzuela DO [address] [place] [address] PCP - General Family Medicine 12/17/24 02/16/25 Marcellus Valenzuela DO [address] [place] [address] PCP - General Family Medicine 02/17/25 Zo Tavarez LSW [address] [place] [address] Environmental Health Safety Manager Family Medicine 02/22/23 Marely Seals NP [address] [place] [address] Nurse Practitioner Family Medicine 10/24/23 10/21/24 Kandace Harvey NP [address] [place] [address] Nurse Practitioner Family Medicine 10/24/23 12/16/24 Marcellus Valenzuela DO [address] [place] [address] Referring Physician Family Medicine 05/29/24 02/16/25 documented as of this encounter
--- OUTSIDE RECORDS SUMMARY | 2025-03-29 08:16 | XMS_ITS | Encounter Summary ---
Author Organization [facility] Address [address] [facility] [place] [place] [address] Care Team Providers Care Welcome Wagon Host/Hostess Name Role Phone Jayy Guzman MD Primary Care Provider [phone] Zo Tavarez FOAM CHARGER Unavailable Kandace Harvey SUPERVISOR ROAD ADMINISTRATOR Unavailable [phone] Jayy Guzman MD Unavailable [phone] Marcellus Valenzuela DO Unavailable [phone] Marcellus Valenzuela DO Primary Care Provider [phone] Marcellus Valenzuela DO Primary Care Provider Encounter Details Date Type Department Care Team (Late st Contact Info) Description 12/07/2024 Abstract [facility] [place] [facility] [address] [place] [address] Marcellus Valenzuela DO [address] [address] [place] [address] Social History Tobacco Use Types Packs/Day Years [...] any clubs o r organizations such as sabianism groups, unions, fraternal or athletic groups, or [...] Recorded Patient Health Questionnaire-2 Score 2 11/09/2024 [facility] [place] of Occupat ional Health - Occupational Stress [...] [address], [address] [place] [address] Marcellus Valenzuela DO [address] [place] [address] documented as of this encounter Visit Diagnoses Not on filedocumented in this encounter Additional Health Concerns Assessment Noted Time PHQ-9 Depression Total Score: 10 024 10:00 AM EDT documented as of this encounter Care Teams Welcome Wagon Host/Hostess Relationship Specialty Start Date End Date Jayy Guzman MD [address] [place] [address] PCP - General Family Medicine 12/28/22 12/16/24 Jayy Guzman MD [address] [place] [address] PCP - Carolynn KEN 02/20/24 Marcellus Valenzuela DO [address] [place] [address] PCP - General Family Medicine 12/17/24 02/16/25 Marcellus Valenzuela DO [address] [place] [address] PCP - General Family Medicine 02/17/25 Zo Tavarez LSW [address] [place] [address] Extrusion Supervisor Family Medicine 02/22/23 Kandace Harvey, SUPERVISOR ROAD ADMINISTRATOR [address] [place] [address] Nurse Practitioner Family Medicine 10/24/23 12/16/24 Marcellus Valenzuela DO [address] [place] [address] Referring Physician Family Medicine 05/29/24 02/16/25 documented as of this encounter
--- OUTSIDE RECORDS SUMMARY | 2025-03-29 08:16 | XMS_ITS | Encounter Summary ---
Author Organization [facility] Address [address] [facility] [place] [address] Care Team Providers Care Building Construction Inspector Name Role Phone Jayy Guzman MD Primary Care Provider [phone] Zo Tavarez SUPPLIER ENGINEER Unavailable Kandace Harvey ORDER DISPATCHER Unavailable [phone] Jayy Guzman MD Unavailable [phone] Marcellus Valenzuela DO Unavailable [phone] Marcellus Valenzuela DO Primary Care Provider [phone] Marcellus Valenzuela DO Primary Care Provider [phone] Encounter Details Date Type Department Care Team (Late st Contact Info) Description 12/16/2024 Abstract [facility] [place] [facility] [address] [place] [address] Marcellus Valenuzela DO [address] [address] [place] [address] Social History Tobacco Use Types Packs/Day Years [...] How often do you attend chur or muslim services? Patient declined 04/15/2023 Do you belong [...] Recorded Patient Health Questionnaire-2 Score 2 11/09/2024 [facility] [place] of Occupat ional Health - Occupational Stress [...] [address], [address] [place] [address] Marcellus Valenzuela DO [address] [place] [address] documented as of this encounter Visit Diagnoses Not on filedocumented in this encounter Additional Health Concerns Assessment Noted Time PHQ-9 Depression Total Score: 10 024 10:00 AM EDT documented as of this encounter Care Teams Building Construction Inspector Relationship Specialty Start Date End Date Jayy Guzman MD [address] [place] [address] PCP - General Family Medicine 12/28/22 12/16/24 Jayy Guzman MD [address] [place] [address] PCP - Carolynn KEN 02/20/24 Marcellus Valenzuela DO [address] [place] [address] PCP - General Family Medicine 12/17/24 02/16/25 Marcellus Valenzuela DO [address] [place] [address] PCP - General Family Medicine 02/17/25 Zo Tavarez LSW [address] [place] [address] Transportation Planner Family Medicine 02/22/23 Kandace Harvey, ORDER DISPATCHER [address] [place] [address] Nurse Practitioner Family Medicine 10/24/23 12/16/24 Marcellus Valenzuela DO [address] [place] [address] Referring Physician Family Medicine 05/29/24 02/16/25 documented as of this encounter
--- OUTSIDE RECORDS SUMMARY | 2025-03-29 08:16 | XMS_ITS | Encounter Summary ---
Author Organization [facility] Address [address] [facility] [place] [address] Care Team Providers Care Loading Unit Operator Crimping Name Role Phone DaysiZo PEDRO Unavailable Jayy Guzman MD Unavailable [phone] Marcellus Valenzuela DO Unavailable [phone] Marcellus Valenzuela DO Primary Care Provider [phone] Marcellus Valenzuela DO Primary Care Provider [phone] Encounter Details Date Type Department Care Team (Late st Contact Info) Description 12/17/2024 Abstract [facility] [address] [place] [address] Marcellus Valenzuela DO [address] [address] [place] [address] Social History Tobacco Use Types Packs/Day Years [...] Recorded Patient Health Questionnaire-2 Score 2 11/09/2024 [facility] of Occupat ional Health - [...] Family Practice [address], [facility] [address] [place] [address] Marcellus Valenzuela DO [address] [place] [address] documented as of this encounter Visit Diagnoses Not on filedocumented in this encounter Additional Health Concerns Assessment Noted Time PHQ-9 Depression Total Score: 10 024 10:00 AM EDT documented as of this encounter Care Teams Loading Unit Operator Crimping Relationship Specialty Start Date End Date Jayy Guzman MD [address] [place] [address] PCP - Carolynn KEN 02/20/24 Marcellus Valenzuela DO [address] [place] [address] PCP - General Family Medicine 12/17/24 02/16/25 Marcellus Valenzuela DO [address] [place] [address] PCP - General Family Medicine 02/17/25 Zo Tavarez LSW [address] [place] [address] Hydraulic Engineer Family Medicine 02/22/23 Marcellus Valenzuela DO [address] [place] [address] Referring Physician Family Medicine 05/29/24 02/16/25 documented as of this encounter
--- OUTSIDE RECORDS SUMMARY | 2025-03-29 08:16 | XMS_ITS | Encounter Summary ---
Author Organization [facility] Address [address] [facility] [place] [address] Care Team Providers Care News Writer Name Role Phone Jayy Guzman MD Primary Care Provider [phone] Zo Tavarez SPANISH PROFESSOR Unavailable Kandace Harvey ARCHITECTURAL MODELER Unavailable [phone] Jayy Guzman MD Unavailable [phone] Marcellus Valenzuela DO Unavailable [phone] Marcellus Valenzuela DO Primary Care Provider [phone] Marcellus Valenzuela DO Primary Care Provider [phone] Encounter Details Date Type Department Care Team (Late st Contact Info) Description 12/09/2024 Orders Only [facility] [address] [place] [id number] Kenyetta Murray, TIM-SDS Social History Tobacco Use [...] any clubs o r organizations such as sikhism groups, unions, fraternal or athletic groups, or [...] Recorded Patient Health Questionnaire-2 Score 2 11/09/2024 [facility] of Occupat ional Health - Occupational [...] Family Practice [address], [facility] 340 [place] [address] Marcellus Valenzuela DO [address] [place] [address] documented as of this encounter Visit Diagnoses Not on filedocumented in this encounter Additional Health Concerns Assessment Noted Time PHQ-9 Depression Total Score: 10 024 10:00 AM EDT documented as of this encounter Care Teams News Writer Relationship Specialty Start Date End Date Jayy Guzman MD [address] [place] [address] PCP - General Family Medicine 12/28/22 12/16/24 Jayy Guzman MD [address] [place] [address] PCP - Carolynn KEN 02/20/24 Marcellus Valenzuela DO [address] [place] [address] PCP - General Family Medicine 12/17/24 02/16/25 Marcellus Valenzuela DO [address] [place] [address] PCP - General Family Medicine 02/17/25 Zo Tavarez LSW [address] [place] [address] Relay Dispatcher Family Medicine 02/22/23 Kandace Harvey NP [address] [place] [address] Nurse Practitioner Family Medicine 10/24/23 12/16/24 Marcellus Valenzuela DO [address] [place] [address] Referring Physician Family Medicine 05/29/24 02/16/25 documented as of this encounter
--- OUTSIDE RECORDS SUMMARY | 2025-03-29 08:16 | XMS_ITS | Encounter Summary ---
Author Organization [facility] Address [address] [place] [address] Care Team Providers Care Fur Sorter Name Role Phone DaysiZo PEDRO Unavailable Jayy Guzman MD Unavailable [phone] Marcellus Valenzuela DO Unavailable [phone] Marcellus Valenzuela DO Primary Care Provider [phone] Marcellus Valenzuela DO Primary Care Provider [phone] Encounter Details Date Type Department Care Team (Late st Contact Info) Description 12/17/2024 Abstract [facility] [address] [place] [address] Jayy Guzman MD [address] [place] [address] Social History Tobacco Use Types Packs/Day Years [...] How often do you attend chur or hindu services? Patient declined 04/15/2023 Do you belong [...] 1:20 PM EDT Office Visit [facility] [address], [facility] 340 [place] [address] Marcellus Valenzuela DO [address] [place] [address] documented as of this encounter Visit Diagnoses Not on filedocumented in this encounter Additional Health Concerns Assessment Noted Time PHQ-9 Depression Total Score: 10 024 10:00 AM EDT documented as of this encounter Care Teams Fur Sorter Relationship Specialty Start Date End Date Jayy Guzman MD [address] [place] [address] PCP - Carolynn KEN 02/20/24 Marcellus Valenzuela DO [address] [place] [address] PCP - General Family Medicine 12/17/24 02/16/25 Marcellus Valenzuela DO [address] [place] [address] PCP - General Family Medicine 02/17/25 Zo Tavarez, FOOD AND DRUG INSPECTOR [address] [place] [address] Mechanical Reliability Engineer Family Medicine 02/22/23 Marcellus Valenzuela DO [address] [place] [address] Referring Physician Family Medicine 05/29/24 02/16/25 documented as of this encounter
--- OUTSIDE RECORDS SUMMARY | 2025-03-29 08:16 | XMS_ITS | Encounter Summary ---
Author Organization [facility] Address [address] [facility] [address] Care Team Providers Care Deoiling Machine Operator Name Role Phone Jayy Guzman MD Primary Care Provider [phone] Zo Tavarez CINDER MAN Unavailable Kandace Harvey FINGERPRINT CLASSIFIER Unavailable [phone] Jayy Guzman MD Unavailable [phone] Marcellus Valenzuela DO Unavailable [phone] Marcellus Valenzuela DO Primary Care Provider [phone] Marcellus Valenzuela DO Primary Care Provider [phone] Encounter Details Date Type Department Care Team (Late st Contact Info) Description 12/07/2024 Abstract [facility] [address] [place] [address] Marcellus Valenzuela DO [address] [address] [place] [address] Social History Tobacco Use Types Packs/Day Years [...] How often do you attend chur or yarsanism services? Patient declined 04/15/2023 Do you belong to any clubs o r organizations such as taoism groups, unions, fraternal or athletic groups, or [...] Recorded Patient Health Questionnaire-2 Score 2 11/09/2024 [facility] of Occupat ional Health - Occupational Stress [...] [address], [address] [place] [address] Marcellus Valenzuela DO [address] [place] [address] documented as of this encounter Visit Diagnoses Not on filedocumented in this encounter Additional Health Concerns Assessment Noted Time PHQ-9 Depression Total Score: 10 024 10:00 AM EDT documented as of this encounter Care Teams Deoiling Machine Operator Relationship Specialty Start Date End Date Jayy Guzman MD [address] [place] [address] PCP - General Family Medicine 12/28/22 12/16/24 Jayy Guzman MD [address] [place] [address] PCP - Carolynn KEN 02/20/24 Marcellus Valenzuela DO [address] [place] [address] PCP - General Family Medicine 12/17/24 02/16/25 Marcellus Valenzuela DO [address] [place] [address] PCP - General Family Medicine 02/17/25 Zo Tavarez LSW [address] [place] [address] [facility] 02/22/23 Kandace Harvey, FINGERPRINT CLASSIFIER [address] [place] [address] Nurse Practitioner Family Medicine 10/24/23 12/16/24 Marcellus Valenzuela DO [address] [place] [address] Referring Physician Family Medicine 05/29/24 02/16/25 documented as of this encounter
--- OUTSIDE RECORDS SUMMARY | 2025-03-29 08:16 | XMS_ITS | Encounter Summary ---
Author Organization [facility] Address [address] [place] [address] Care Team Providers Care Apparel Fashion Designer Name Role Phone Jayy Guzman MD Primary Care Provider [phone] Jayy Guzman MD Unavailable [phone] Zo Tavarez DIE BAKER Unavailable Marely Seals NP Unavailable Kandace Harvey FORMING DEPARTMENT END FINDER Unavailable [phone] Jayy Guzman MD Unavailable [phone] Marcellus Valenzuela DO Unavailable [phone] Marcellus Valenzuela DO Primary Care Provider [phone] Marcellus Valenzuela DO Primary Care Provider [phone] Encounter Details Date Type Department Care Team [...] 1:20 PM EDT Office Visit [facility] [address], [address] [place] [address] Marcellus Valenzuela DO [address] [facility] [address] [place] [address] documented as of this encounter Procedures Procedure [...] SKELETON: There are no hypermetabolic osseous lesions. Terrazzo Layer Helper (topogram) images:No additional findings. IMPRESSION: 1. Neck: [...] any questions regarding this interpretation, please call [phone]. If you are unable to reach us at the number above, please feel free to contact [facility] at [phone]. [id number]^[email or web address]^SI^ACN * * *Final Report* * * DATE [...] SKELETON: There are no hypermetabolic osseous lesions. Terrazzo Layer Helper (topogram) images:No additional findings. IMPRESSION: 1. Neck: [...] any questions regarding this interpretation, please call [phone]. If you are unable to reach us at the number above, please feel free to contact [facility] at [phone]. [id number]^AGFA_IDC^SI^ACN * * *Final Report* * * DATE [...] SKELETON: There are no hypermetabolic osseous lesions. Terrazzo Layer Helper (topogram) images:No additional findings. IMPRESSION: 1. Neck: [...] any questions regarding this interpretation, please call [phone]. If you are unable to reach us at the number above, please feel free to contact [facility] at [phone]. [id number]^AGFA_IDC^SI^ACN Procedure Note Radiology, Radiologist, - 12/24/2022 * [...] SKELETON: There are no hypermetabolic osseous lesions. Terrazzo Layer Helper (topogram) images:No additional findings. IMPRESSION: 1. Neck: [...] any questions regarding this interpretation, please call [phone]. If you are unable to reach us at the number above, please feel free to contact [facility] at [phone]. [id number]^AGFA_IDC^SI^ACN * * *Final Report* * * DATE [...] SKELETON: There are no hypermetabolic osseous lesions. Terrazzo Layer Helper (topogram) images:No additional findings. IMPRESSION: 1. Neck: [...] any questions regarding this interpretation, please call [phone]. If you are unable to reach us at the number above, please feel free to contact [facility] at [phone]. [id number]^AGFA_IDC^SI^ACN * * *Final Report* * * DATE [...] SKELETON: There are no hypermetabolic osseous lesions. Terrazzo Layer Helper (topogram) images:No additional findings. IMPRESSION: 1. Neck: [...] any questions regarding this interpretation, please call [phone]. If you are unable to reach us at the number above, please feel free to contact [facility] at [phone]. [id number]^AGFA_IDC^SI^ACN Jayy Guzman MD [facility] Final Result documented in this encounter Visit Diagnoses Not on filedocumented in this encounter Care Teams Apparel Fashion Designer Relationship Specialty Start Date End Date Jayy Guzman MD [address] [place] [address] PCP - General Family Medicine 12/28/22 12/16/24 Jayy Guzman MD [address] [place] [address] PCP - Carolynn KEN 01/19/23 06/20/23 Jayy Guzman MD [address] [place] [address] PCP - Carolynn KEN 02/20/24 Marcellus Valenzuela DO [address] [place] [address] PCP - General Family Medicine 12/17/24 02/16/25 Marcellus Valenzuela DO [address] [place] [address] PCP - General Family Medicine 02/17/25 Zo Tavarez LSW [address] [place] [address] Solution Design Engineer Family Medicine 02/22/23 Marely Seals NP [address] [place] [address] Nurse Practitioner Family Medicine 10/24/23 10/21/24 Kandace Harvey, FORMING DEPARTMENT END FINDER [address] [place] [address] Nurse Practitioner Family Medicine 10/24/23 12/16/24 Marcellus Valenzuela DO [address] [place] [address] Referring Physician Family Medicine 05/29/24 02/16/25 documented as of this encounter
--- OUTSIDE RECORDS SUMMARY | 2025-03-29 08:17 | XMS_ITS | Encounter Summary ---
Author Organization [facility] Address [address] [facility] [place] [place] [address] Care Team Providers Care Upholstery Technician Name Role Phone Jayy Guzman MD Primary Care Provider [phone] Zo Tavarez MANAGEMENT LEAD Unavailable Marely Seals NP Unavailable Kandace Harvey GROUP WORK PROGRAM DIRECTOR Unavailable [phone] Jayy Guzman MD Unavailable [phone] Marcellus Valenzuela DO Unavailable [phone] Marcellus Valenzuela DO Primary Care Provider [phone] Marcellus Valenzuela DO Primary Care Provider [phone] Encounter Details Date Type Department Care Team (Late st Contact Info) Description 07/26/2023 [facility] [address] [place] [address] Laura Klein MA Social History Tobacco Use [...] Recorded Patient Health Questionnaire-2 Score 0 01/28/2023 [facility] of Occupat ional Health - Occupational [...] PM EDT Office Visit [facility] [address], [facility] 340 [place] [address] Marcellus Valenzuela DO [address] [place] [address] documented as of this encounter Visit Diagnoses Not on filedocumented in this encounter Care Teams Upholstery Technician Relationship Specialty Start Date End Date Jayy Guzman MD [address] [place] [address] PCP - General Family Medicine 12/28/22 12/16/24 Jayy Guzman MD [address] [place] [address] PCP - Carolynn KEN 02/20/24 Marcellus Vlaenzuela DO [address] [place] [address] PCP - General Family Medicine 12/17/24 02/16/25 Marcellus Valenzuela DO [address] [place] [address] PCP - General Family Medicine 02/17/25 Zo Tavarez LSW [address] [place] [address] English Composition Teacher Family Medicine 02/22/23 Marely Seals NP [address] [place] [address] Nurse Practitioner Family Medicine 10/24/23 10/21/24 Kandace Harvey NP [address] [place] [address] Nurse Practitioner Family Medicine 10/24/23 12/16/24 Marcellus Valenzuela DO [address] [place] [address] Referring Physician Family Medicine 05/29/24 02/16/25 documented as of this encounter
--- OUTSIDE RECORDS SUMMARY | 2025-03-29 08:17 | XMS_ITS | Encounter Summary ---
Author Organization [facility] Address [address] [place] [address] Care Team Providers Care Exhibit Specialist Name Role Phone Jayy Guzman MD Primary Care Provider [phone] Jayy Guzman MD Unavailable [phone] Zo Tavarez DIRECTOR OF ENTERPRISE STRATEGY Unavailable Marely Seals NP Unavailable Kandace Harvey MILKING SYSTEM INSTALLER Unavailable [phone] Jayy Guzman MD Unavailable [phone] Marcellus Valenzuela DO Unavailable [phone] Marcellus Valenzuela DO Primary Care Provider Marcellus Valenzuela DO Primary Care Provider [phone] Encounter Details Date Type Department Care Team (Late st Contact Info) Description 12/21/2022 Clinisync Result Encounter [facility] External Department Unsolicited Jayy Guzman MD [address] [place] [address] Social History Tobacco Use Types Packs/Day Years [...] Description 04/27/2025 1:20 PM EDT [facility] [address], [facility] 340 [place] [address] Nicolas, Marcellus, DO [address] [place] [address] documented as of this encounter Procedures Procedure [...] QTC Calculation(Bazett) : 455 ms Calculated P [place] : 71 degrees Calculated R [place] : 26 degrees Calculated T [place] : 142 degrees SINUS BRADYCARDIA RIGHT ATRIAL ENLARGEMENT LEFT VENTRICULAR HYPERTROPHY WITH REPOLARIZATION ABNORMALITY ABNORMAL ECG Confirmed by TIMOTHY ARIAS M.D. ([id number]) on 12/26/2022 12:52:40 PM NAME : CLEMENTINA ACUNA PID : [id number] : 1950 Gender : Female Race : ORD : Procedure Date : Dec 21 2022 11:51:18 Edit Date : Dec 26 2022 12:56:19 Diagnosis: SINUS BRADYCARDIA RIGHT ATRIAL ENLARGEMENT LEFT VENTRICULAR HYPERTROPHY WITH REPOLARIZATION ABNORMALITY ABNORMAL ECG Confirmed by TIMOTHY ARIAS M.D. ([id number]) on 12/26/2022 12:52:40 PM Test Reason : Location : 539 : [facility] Overread By : TIMOTHY ARIAS M.D. Edited By : TIMOTHY ARIAS M.D. Referred By : FINA ARNOLD Acquired by : SCOOBY Procedure Note Radiology, Radiologist, - 12/26/2022 Ventricular Rate : 58 BPM Atrial Rate : 58 BPM P-R Interval : 146 ms QRS Duration : 84 ms Q-T Interval : 464 ms QTC Calculation(Bazett) : 455 ms Calculated P [place] : 71 degrees Calculated R [place] : 26 degrees Calculated T [place] : 142 degrees SINUS BRADYCARDIA RIGHT ATRIAL ENLARGEMENT LEFT VENTRICULAR HYPERTROPHY WITH REPOLARIZATION ABNORMALITY ABNORMAL ECG Confirmed by TIMOTHY ARIAS M.D. ([id number]) on 12/26/2022 12:52:40 PM NAME : CLEMENTINA ACUNA PID : [id number] : 1950 Gender : Female Race : ORD : Procedure Date : Dec 21 2022 11:51:18 Edit Date : Dec 26 2022 12:56:19 Diagnosis: SINUS BRADYCARDIA RIGHT ATRIAL ENLARGEMENT LEFT VENTRICULAR HYPERTROPHY WITH REPOLARIZATION ABNORMALITY ABNORMAL ECG Confirmed by TIMOTHY ARIAS M.D. ([id number]) on 12/26/2022 12:52:40 PM Test Reason : Location : 539 : [facility] Overread By : TIMOTHY ARIAS M.D. Edited By : TIMOTHY ARIAS M.D. Referred By : FINA ARNOLD Acquired by : SCOOBY, Jayy Guzman MD [facility] Final Result documented in this encounter Visit Diagnoses Not on filedocumented in this encounter Care Teams Exhibit Specialist Relationship Specialty Start Date End Date Jayy Guzman MD [address] [place] [address] PCP - General Family Medicine 12/28/22 12/16/24 Jayy Guzman MD [address] [place] [address] PCP - Carolynn KEN 01/19/23 06/20/23 Jayy Guzman MD [address] [place] [address] PCP - Carolynn KEN 02/20/24 Marcellus Valenzuela DO [address] [place] [address] PCP - General Family Medicine 12/17/24 02/16/25 Marcellus Valenzuela DO [address] [place] [address] PCP - General Family Medicine 02/17/25 Zo Tavarez LSW [address] [place] [address] [facility] Family Medicine 02/22/23 Marely Seals NP [address] [place] [address] Nurse Practitioner Family Medicine 10/24/23 10/21/24 Kandace Harvey MILKING SYSTEM INSTALLER [address] [place] [address] Nurse Practitioner Family Medicine 10/24/23 12/16/24 Marcellus Valenzuela DO [address] [place] [address] Referring Physician Family Medicine 05/29/24 02/16/25 documented as of this encounter
--- OUTSIDE RECORDS SUMMARY | 2025-03-29 08:17 | XMS_ITS | Encounter Summary ---
Author Organization [facility] Address [address] [place] [address] Care Team Providers Care Rickshaw Driver Name Role Phone Jayy Guzman MD Primary Care Provider [phone] Zo Tavarez LABORATORY DIRECTOR Unavailable Marely Seals NP Unavailable Kandace Harvey DATA CENTER CONSULTANT Unavailable [phone] Jayy Guzman MD Unavailable Marcellus Valenzuela DO Unavailable [phone] Marcellus Valenzuela DO Primary Care Provider [phone] Marcellus Valenzuela DO Primary Care Provider [phone] Encounter Details Date Type Department Care Team [...] declined 04/15/2023 How often do you attend [facility] or congregation services? Patient declined 04/15/2023 Do you belong to any clubs o r organizations such as christian groups, unions, fraternal or athletic groups, or [...] Recorded Patient Health Questionnaire-2 Score 0 01/28/2023 [facility] of Occupat ional Health - Occupational Stress [...] 1:20 PM EDT Office Visit [facility] [address], [address] [place] [address] Marcellus Valenzuela DO [address] [place] [address] documented as of this encounter Procedures Procedure [...] DATE OF EXAM: Jul 12 2023 2:17PM [facility] 0539 - CT CHEST W IVCON / [...] Right-sided nonobstructive nephrolithiasis, cholelithiasis is again noted. Divinity Teacher (topogram) images: No additional findings. IMPRESSION: [...] any questions regarding this interpretation, please call [phone]. If you are unable to reach us at the number above, please feel free to contact [facility] at [phone]. [id number]^[email or web address]^ACN Procedure Note Radiology, Radiologist, MD - 07/16/2023 * * *Final Report* * * DATE OF EXAM: Jul 12 2023 2:17PM [facility] 0539 - CT CHEST W IVCON / [...] Right-sided nonobstructive nephrolithiasis, cholelithiasis is again noted. Divinity Teacher (topogram) images: No additional findings. IMPRESSION: [...] any questions regarding this interpretation, please call [phone]. If you are unable to reach us at the number above, please feel free to contact [facility] at [phone]. [id number]^[email or web address]^SI^ACN us Generic External Data Provider IMG CT PROCEDURES Final Result documented in this encounter Visit Diagnoses Not on filedocumented in this encounter Care Teams Rickshaw Driver Relationship Specialty Start Date End Date Jayy Guzman MD [address] [place] [address] PCP - General Family Medicine 12/28/22 12/16/24 Jayy Guzman MD [address] [place] [address] PCP - Carolynn KEN 02/20/24 Marcellus Valenzuela DO [address] [place] [address] PCP - General Family Medicine 12/17/24 02/16/25 Marcellus Valenzuela DO [address] [place] [address] PCP - General Family Medicine 02/17/25 Zo Tavarez [place] [address] [place] [address] Instructor Traffic Safety Family Medicine 02/22/23 Marely Seals NP [address] [place] [address] Nurse Practitioner Family Medicine 10/24/23 10/21/24 Kandace Harvey NP [address] [place] [address] Nurse Practitioner Family Medicine 10/24/23 12/16/24 Marcellus Valenzuela DO [address] [place] [address] Referring Physician Family Medicine 05/29/24 02/16/25 documented as of this encounter
--- OUTSIDE RECORDS SUMMARY | 2025-03-29 08:17 | XMS_ITS | Encounter Summary ---
Author Organization [facility] Address [address] [place] [address] Care Team Providers Care Servicer Name Role Phone Jayy Guzman MD Primary Care Provider [phone] Zo Tavarez REALTY LOAN SPECIALIST Unavailable Marely Seals NP Unavailable Kandace Harvey FRAME NAILER Unavailable [phone] Jayy Guzman MD Unavailable [phone] Marcellus Valenzuela DO Unavailable [phone] Marcellus Valenzuela DO Primary Care Provider [phone] Marcellus Valenzuela DO Primary Care Provider [phone] Encounter Details Date Type Department Care Team (Late st Contact Info) Description 08/13/2023 Abstract [facility] [address] [place] [address] Jayy Guzman MD [address] [place] [address] Social History Tobacco Use Types Packs/Day Years [...] Recorded Patient Health Questionnaire-2 Score 0 01/28/2023 [facility] [place] of Occupat ional Health - Occupational Stress [...] Family Practice [address], [facility] 340 [place] [address] Marcellus Valenzuela DO [address] [facility] 340 [place] [address] documented as of this encounter Visit Diagnoses Not on filedocumented in this encounter Care Teams Servicer Relationship Specialty Start Date End Date Jayy Guzman MD [address] [place] [address] PCP - General Family Medicine 12/28/22 12/16/24 Jayy Guzman MD [address] [place] [address] PCP - Carolynn KEN 02/20/24 Marcellus Valenzuela DO [address] [place] [address] PCP - General Family Medicine 12/17/24 02/16/25 Marcellus Valenzuela DO [address] [place] [address] PCP - General Family Medicine 02/17/25 Zo Tavarez LSW [address] [place] [address] Coat Repair Inspector Family Medicine 02/22/23 Marely Seals NP [address] [place] [address] Nurse Practitioner Family Medicine 10/24/23 10/21/24 Kandace Harvey NP [address] [place] [address] Nurse Practitioner Family Medicine 10/24/23 12/16/24 Marcellus Valenzuela DO [address] [place] [address] Referring Physician Family Medicine 05/29/24 02/16/25 documented as of this encounter
--- OUTSIDE RECORDS SUMMARY | 2025-03-29 08:17 | XMS_ITS | Encounter Summary ---
Author Organization [facility] Address [address] [place] [address] Care Team Providers Care Manual Machinist Name Role Phone Jayy Guzman MD Primary Care Provider [phone] Jie Johnson APRN.BULLET LUBRICANT MIXER Unavailable [phone] Jayy Parker MD Unavailable Unavail able Roxana Wagner RN Unavailable [phone] Source Comments In the event this information is protected by the Federal Confidentiality of Alcohol and Drug AbusePatient Records regulations: The Federal rules restrict any use of the information to criminally investigate or prosecute any alcohol or drug abuse patient.[facility] Encounter Details Date Type Department Care Team [...] on filedocumented in this encounter Care Teams Manual Machinist Relationship Specialty Start Date End Date Jayy Guzman MD [address] [place] [address] PCP - General 09/01/09 Jie Johnson APRN.BULLET LUBRICANT MIXER [address] [address] Nurse Practitioner Hematology/Oncology 01/16/23 Jayy Parker MD [address] [facility] [place] [address] Physician Hematology/Oncology 01/16/23 01/25/25 Roxana Wagner, LIU [address] [place] [address] Specialty Tray Room Worker Hematology/Oncology 01/16/23 documented as of this encounter
--- OUTSIDE RECORDS SUMMARY | 2025-03-29 08:17 | XMS_ITS | Encounter Summary ---
Author Organization [facility] Address [address] [place] [address] Care Team Providers Care Bookbinder Chief Name Role Phone Jayy Guzman MD Primary Care Provider [phone] Zo Tavarez ROOM MANAGER Unavailable Marely Seals NP Unavailable Kandace Harvey DRYWALL CONTRACTOR Unavailable [phone] Jayy Guzman MD Unavailable [phone] Marcellus Valenzuela DO Unavailable [phone] Marcellus Valenzuela DO Primary Care Provider [phone] Marcellus Valenzuela DO Primary Care Provider Encounter Details Date Type Department Care Team (Late st Contact Info) Description 06/26/2023 Abstract [facility] [address] [place] [address] Jayy Guzman MD [address] [place] [address] Social History Tobacco Use Types Packs/Day Years [...] 0 01/28/2023 [facility] [place] of Occupat ional Health - Occupational Stress [...] Family Practice [address], [facility] 340 [place] [address] Marcellus Valenzuela DO [address] [facility] 340 [place] [address] documented as of this encounter Visit Diagnoses Not on filedocumented in this encounter Care Teams Bookbinder Chief Relationship Specialty Start Date End Date Jayy Guzman MD [address] [place] [address] PCP - General Family Medicine 12/28/22 12/16/24 Jayy Guzman MD [address] [place] [address] PCP - Carolynn KEN 02/20/24 Marcellus Valenzuela DO [address] [place] [address] PCP - General Family Medicine 12/17/24 02/16/25 Marcellus Valenzuela DO [address] [place] [address] PCP - General Family Medicine 02/17/25 Zo Tavarez LSW [address] [place] [address] Tobacco Curer Family Medicine 02/22/23 Marely Seals NP [address] [place] [address] Nurse Practitioner Family Medicine 10/24/23 10/21/24 Kandace Harvey NP [address] [place] [address] Nurse Practitioner Family Medicine 10/24/23 12/16/24 Marcellus Valenzuela DO [address] [place] [address] Referring Physician Family Medicine 05/29/24 02/16/25 documented as of this encounter
--- OUTSIDE RECORDS SUMMARY | 2025-03-29 08:18 | XMS_ITS | Encounter Summary ---
Author Organization [facility] Address [address] [place] [address] Care Team Providers Care Home Teaching Grades 9 Thru 12 Teacher Name Role Phone Jayy Guzman MD Primary Care Provider [phone] Jayy Guzman MD Unavailable [phone] Zo Tavarez PRIVATE BRANCH EXCHANGE SERVICE ADVISOR Unavailable Marely Seals NP Unavailable Kandace Harvey ALLEY WORKER Unavailable [phone] Jayy Guzman MD Unavailable [phone] Marcellus Valenzuela DO Unavailable [phone] Marcellus Valenzuela DO Primary Care Provider [phone] Marcellus Valenzuela DO Primary Care Provider [phone] Encounter Details Date Type Department Care Team (Late st Contact Info) Description 06/04/2023 [facility] [address] [place] [address] Jayy Guzman MD [address] [place] [address] Social History Tobacco Use Types Packs/Day Years [...] any clubs o r organizations such as methodist groups, unions, fraternal or athletic groups, or [...] Recorded Patient Health Questionnaire-2 Score 0 01/28/2023 [facility] of Occupat ional Health - Occupational Stress [...] PM EDT Office Visit [facility] [address], [address] [place] [address] Marcellus Valenzuela, [address] [place] [address] documented as of this encounter Visit Diagnoses Not on filedocumented in this encounter Care Teams Home Teaching Grades 9 Thru 12 Teacher Relationship Specialty Start Date End Date Jayy Guzman MD [address] [place] [address] PCP - General Family Medicine 12/28/22 12/16/24 Jayy Guzman MD [address] [place] [id number] PCP - Carolynn KEN 01/19/23 06/20/23 Jayy Guzman MD [address] [place] [address] PCP - Carolynn KEN 02/20/24 Marcellus Valenzuela DO [address] [place] [address] PCP - General Family Medicine 12/17/24 02/16/25 Marcellus Valenzuela DO [address] [place] [address] PCP - General Family Medicine 02/17/25 Zo Tavarez LSW [address] [place] [address] Extrusion Engineer Family Medicine 02/22/23 Marely Seals NP [address] [place] [address] Nurse Practitioner Family Medicine 10/24/23 10/21/24 Kandace Harvey NP [address] [place] [address] Nurse Practitioner Family Medicine 10/24/23 12/16/24 Marcellus Valenzuela DO [address] [place] [address] Referring Physician Family Medicine 05/29/24 02/16/25 documented as of this encounter
--- OUTSIDE RECORDS SUMMARY | 2025-03-29 08:18 | XMS_ITS | Encounter Summary ---
Author Organization [facility] Address [address] [place] [address] Phone Care Team Providers Care Card Scraper Name Role Phone Jayy Guzman MD Primary Care Provider Encounter Details Date Type Department Care Team (Late st Contact Info) Description 05/11/2024 Scanned Document [facility] [address] [place] [address] Scanning, Generic Provider Social History Tobacco Use [...] on filedocumented in this encounter Care Teams Card Scraper Relationship Specialty Start Date End Date Jayy Guzman MD [address] [place] [address] PCP - General 03/01/15 documented as of this encounter
--- OUTSIDE RECORDS SUMMARY | 2025-03-29 08:18 | XMS_ITS | Encounter Summary ---
Author Organization [facility] Address [address] [place] [address] Phone Care Team Providers Care Machinist Linotype Name Role Phone Jayy Guzman MD Primary Care Provider [phone] Encounter Details Date Type Department Care Team (Late st Contact Info) Description 05/25/2024 Scanned Document [facility] [address] [place] [address] Scanning, Generic Provider Social History Tobacco Use [...] on filedocumented in this encounter Care Teams Machinist Linotype Relationship Specialty Start Date End Date Jayy Guzman MD [address] [place] [address] PCP - General 03/01/15 documented as of this encounter
--- OUTSIDE RECORDS SUMMARY | 2025-03-29 08:18 | XMS_ITS | Encounter Summary ---
Author Organization [facility] Address [address] [place] [address] Care Team Providers Care Lead Painter Name Role Phone Jayy Guzman MD Primary Care Provider [phone] Jie Johnson APRN.REGIONAL RECRUITER Unavailable [phone] Jayy Parker MD Unavailable Unavail able Roxana Wagner RN Unavailable [phone] Source Comments In the event this information is protected by the Federal Confidentiality of Alcohol and Drug AbusePatient Records regulations: The Federal rules restrict any use of the information to criminally investigate or prosecute any alcohol or drug abuse patient.[facility] Encounter Details Date Type Department Care Team (Latest Contact Info) Description 05/12/2024 H&P External-NonCCF Provider, External, PA-C Do not [...] risk 6 12/13/2022 Data from: https://www.neighborhoodatlas.medicine.[facility].edu/. Last address used for calculation [address] [place] [address] [address] 12/13/2022 Comments No Sex and [...] on filedocumented in this encounter Care Teams Lead Painter Relationship Specialty Start Date End Date Jayy Guzman MD [address] [place] [address] PCP - General 09/01/09 Jie Johnson, PAUL.REGIONAL RECRUITER [address] [address] Nurse Practitioner Hematology/Oncology 01/16/23 Jayy Parker MD [address] [address] Physician Hematology/Oncology 01/16/23 01/25/25 Roxana Wagner, RN [address] [address] Service Hematology/Oncology 01/16/23 documented as of this encounter
--- OUTSIDE RECORDS SUMMARY | 2025-03-29 08:18 | XMS_ITS | Encounter Summary ---
Author Organization [facility] Address [address] [place] [address] Care Team Providers Care Core Winding Operator Name Role Phone Jayy Guzman MD Primary Care Provider [phone] Jayy Guzman MD Unavailable [phone] Zo Tavarez BOLT SAWYER Unavailable Marely Seals NP Unavailable Kandace Harvey AIR QUALITY SPECIALIST Unavailable [phone] Jayy Guzman MD Unavailable [phone] Marcellus Valenzuela DO Unavailable [phone] Marcellus Valenzuela DO Primary Care Provider [phone] Marcellus Valenzuela DO Primary Care Provider [phone] Encounter Details Date Type Department Care Team [...] Patient Health Questionnaire-2 Score 0 01/28/2023 [facility] of Occupat ional Health - Occupational Stress [...] a mcfp (including now)? No 04/15/2023 Comments Unknown Sex [...] on one occasion? Never 04/16/2023 10:41 AM Anette Daly MA documented as of this encounter Plan of Treatment Upcoming Encounters Date Type Department Care Team (Late st Contact Info) Description 04/27/2025 1:20 PM EDT [facility] [address], [address] [place] [address] NicolasMarcellus, DO [address] [place] [place] [address] documented as of this encounter Procedures Procedure [...] DATE OF EXAM: Apr 16 2023 9:17AM [facility] 0539 - CT CHEST W IVCON / [...] was performed and will be reported separately. Cash Accountant (topogram) images: No additional findings. IMPRESSION: 1. [...] any questions regarding this interpretation, please call [phone]. If you are unable to reach us at the number above, please feel free to contact [facility] at [phone]. [id number]^AGFA_IDC^SI^ACN Procedure Note Radiology, Radiologist, - 04/16/2023 * * *Final Report* * * DATE OF EXAM: Apr 16 2023 9:17AM [facility] 0539 - CT CHEST W IVCON / [...] was performed and will be reported separately. Cash Accountant (topogram) images: No additional findings. IMPRESSION: 1. [...] any questions regarding this interpretation, please call [phone]. If you are unable to reach us at the number above, please feel free to contact [facility] at [phone]. [id number]^AGFA_IDC^SI^ACN us Generic External Data Provider IMG CT PROCEDURES Final Result documented in this encounter Visit Diagnoses Not on filedocumented in this encounter Care Teams Core Winding Operator Relationship Specialty Start Date End Date Jayy Guzman MD [address] [place] [id number] PCP - General Family Medicine 12/28/22 12/16/24 Jayy Guzman MD [address] [place] [address] PCP - Carolynn KEN 01/19/23 06/20/23 Jayy Guzman MD [address] [place] [address] PCP - Carolynn KEN 02/20/24 Marcellus Valenzuela DO [address] [place] [address] PCP - General Family Medicine 12/17/24 02/16/25 Marcellus Valenzuela DO [address] [place] [address] PCP - General Family Medicine 02/17/25 Zo Tavarez LSW [address] [place] [address] Envelope Adjuster Family Medicine 02/22/23 Marely Seals NP [address] [place] [address] Nurse Practitioner Family Medicine 10/24/23 10/21/24 Kandace Harvey NP [address] [place] [address] Nurse Practitioner Family Medicine 10/24/23 12/16/24 Marcellus Valenzuela DO [address] [place] [address] Referring Physician Family Medicine 05/29/24 02/16/25 documented as of this encounter
--- OUTSIDE RECORDS SUMMARY | 2025-03-29 08:18 | XMS_ITS | Encounter Summary ---
Author Organization [facility] Address [address] [place] [address] Care Team Providers Care Blueprint Reader Name Role Phone Jayy Guzman MD Primary Care Provider [phone] Jayy Guzman MD Unavailable [phone] Zo Tavarez CREATIVE ART DIRECTOR Unavailable Marely Seals NP Unavailable Kandace Harvey CHILD NUTRITION ASSISTANT Unavailable [phone] Jayy Guzman MD Unavailable [phone] Marcellus Valenzuela DO Unavailable [phone] Marcellus Valenzuela DO Primary Care Provider [phone] Marcellus Valenzuela DO Primary Care Provider [phone] Encounter Details Date Type Department Care Team (Late st Contact Info) Description 05/16/2023 [facility] [address] [place] [address] Jayy Guzman MD [address] [place] [address] Social History Tobacco Use Types Packs/Day Years [...] Recorded Patient Health Questionnaire-2 Score 0 01/28/2023 [facility] [place] of Occupat ional Health - Occupational Stress [...] a longterm (including now)? No 04/15/2023 Comments Unknown Sex [...] [address], [address] [place] [address] Marcellus Valenzuela DO [address] [place] [address] documented as of this encounter Visit Diagnoses Not on filedocumented in this encounter Care Teams Blueprint Reader Relationship Specialty Start Date End Date Jayy Guzman MD [address] [place] [address] PCP - General Family Medicine 12/28/22 12/16/24 Jayy Guzman MD [address] [place] [address] PCP - Carolynn KEN 01/19/23 06/20/23 Jayy Guzman MD [address] [place] [address] PCP - Carolynn KEN 02/20/24 Marcellus Valenzuela DO [address] [place] [address] PCP - General Family Medicine 12/17/24 02/16/25 Marcellus Valenzuela DO [address] [place] [address] PCP - General Family Medicine 02/17/25 Zo Tavarez LSW [address] [place] [address] Electrical Prospecting Observer Family Medicine 02/22/23 Marely Seals NP [address] [place] [address] Nurse Practitioner Family Medicine 10/24/23 10/21/24 Kandace Harvey NP [address] [place] [address] Nurse Practitioner Family Medicine 10/24/23 12/16/24 Marcellus Valenzuela DO [address] [place] [address] Referring Physician Family Medicine 05/29/24 02/16/25 documented as of this encounter
--- OUTSIDE RECORDS SUMMARY | 2025-03-29 08:18 | XMS_ITS | Encounter Summary ---
Author Organization [facility] Address [address] [place] [address] Care Team Providers Care Assistant Store Leader Name Role Phone Jayy Guzman MD Primary Care Provider [phone] Jayy Guzman MD Unavailable [phone] Zo Tavarez CATALYST UNIT OPERATOR Unavailable Marely Seals NP Unavailable Kandace Harvey CHARTER COACH DRIVER Unavailable [phone] Jayy Guzman MD Unavailable [phone] Marcellus Valenzuela DO Unavailable [phone] Marcellus Valenzuela DO Primary Care Provider [phone] Marcellus Valenzuela DO Primary Care Provider [phone] Encounter Details Date Type Department Care Team [...] Recorded Patient Health Questionnaire-2 Score 0 01/28/2023 [facility] of Occupat ional [...] place to sleep or slept in a fci (including now)? No 04/15/2023 Comments Unknown Sex [...] 1:20 PM EDT Office Visit [facility] [address], [address] [place] [address] NicolasMarcellus, DO [address] [place] [address] [place] [address] documented as of this encounter Procedures Procedure Name Priority Date/Time Associated Diagnosis Comments CT ABD/PEL W IVCON 04/16/2023 9: 17 AM EDT documented in this encounter Results * CT ABD/PEL W IVCON (04/16/2023 9:17 AM EDT) Anatomical Region Laterality Modality Other 04/16/2023 9:17 AM EDT Narrative 04/16/2023 11:47 AM EDT * * *Final Report* * * DATE OF EXAM: Apr 16 2023 9:17AM [facility] 0530 - CT ABD/PEL W IVCON / [...] chest CT performed will be reported separately. Research Editor (topogram) images: Median sternotomy wires. IMPRESSION: 1. [...] any questions regarding this interpretation, please call [phone]. If you are unable to reach us at the number above, please feel free to contact [facility] at [phone]. [id number]^AGFA_[email or web address]^SI^ACN Procedure Note Radiology, Radiologist, - 04/16/2023 * * *Final Report* * * DATE OF EXAM: Apr 16 2023 9:17AM [facility] 0530 - CT ABD/PEL W IVCON / [...] chest CT performed will be reported separately. Research Editor (topogram) images: Median sternotomy wires. IMPRESSION: 1. [...] any questions regarding this interpretation, please call [phone]. If you are unable to reach us at the number above, please feel free to contact [facility] at [phone]. [id number]^AGFA_IDC^SI^ACN us Generic External Data Provider [facility] Final Result documented in this encounter Visit Diagnoses Not on filedocumented in this encounter Care Teams Assistant Store Leader Relationship Specialty Start Date End Date Jayy Guzman MD [address] [place] [address] PCP - General Family Medicine 12/28/22 12/16/24 Jayy Guzman MD [address] [place] [address] PCP - Carolynn KEN 01/19/23 06/20/23 Jayy Guzman MD [address] [place] [address] PCP - Carolynn KEN 02/20/24 Marcellus Valenzuela DO [address] [place] [address] PCP - General Family Medicine 12/17/24 02/16/25 Marcellus Valenzuela DO [address] [place] [address] PCP - General Family Medicine 02/17/25 Zo Tavarez LSW [address] [place] [address] Professional Fee Coder Family Medicine 02/22/23 Marely Seals NP [address] [place] [address] Nurse Practitioner Family Medicine 10/24/23 10/21/24 Kandace Harvey, LANETTE [address] [place] [address] Nurse Practitioner Family Medicine 10/24/23 12/16/24 Marcellus Valenzuela DO [address] [place] [address] Referring Physician Family Medicine 05/29/24 02/16/25 documented as of this encounter
--- OUTSIDE RECORDS SUMMARY | 2025-03-29 08:18 | XMS_ITS | Encounter Summary ---
Author Organization [facility] Address [address] [place] [address] Care Team Providers Care Poultry Cleaner Name Role Phone Jayy Guzman MD Primary Care Provider [phone] Jie Johnson APRN.PACKER AND CARRY OUT Unavailable [phone] Jayy Parker MD Unavailable Unavail able Roxana Wagner RN Unavailable [phone] Source Comments In the event this information is protected by the Federal Confidentiality of Alcohol and Drug AbusePatient Records regulations: The Federal rules restrict any use of the information to criminally investigate or prosecute any alcohol or drug abuse patient.[facility] Encounter Details Date Type Department Care Team (Latest Contact Info) Description 05/14/2024 H&P External-NonCCF Provider, External, PA-C Do not [...] is lower risk 6 12/13/2022 Data from: https://www.neighborhoodatlas.medicine.[facility].edu/. Last address used for calculation [address] [place] [address] [address] 12/13/2022 Comments No Sex and [...] on filedocumented in this encounter Care Teams Poultry Cleaner Relationship Specialty Start Date End Date Jayy Guzman MD [address] [place] [address] PCP - General 09/01/09 Jie Johnson, PAUL.PACKER AND CARRY OUT [address] [facility] [address] Nurse Practitioner Hematology/Oncology 01/16/23 Jayy Pakrer MD [address] [facility] [place] [address] Physician Hematology/Oncology 01/16/23 01/25/25 Roxana Wagner, RN [address] [facility] [place] [address] Specialty Store Lead Hematology/Oncology 01/16/23 documented as of this encounter
--- OUTSIDE RECORDS SUMMARY | 2025-03-29 08:18 | XMS_ITS | Encounter Summary ---
Author Organization [facility] Address [address] [place] [address] Phone Care Team Providers Care Ingot Car Operator Name Role Phone Jayy Guzman MD Primary Care Provider Encounter Details Date Type Department Care Team (Late st Contact Info) Description 05/12/2024 Scanned Document [facility] [address] [place] [address] Scanning, Generic Provider Social History Tobacco Use [...] on filedocumented in this encounter Care Teams Ingot Car Operator Relationship Specialty Start Date End Date Jayy Guzman MD [address] [place] [address] PCP - General 03/01/15 documented as of this encounter
[2025-03-29 08:23] LABS: Potassium 5.6 mmol/L (3.5-5.1)
== END 2025-03-29 08:03 | disposition home or self-care (01) ==
LOC: LAB 08:02
PROVIDERS: PCP Family Medicine; Visit Provider Internal Medicine Nephrology
DX: E87.5 Hyperkalemia (principal)
CPT/HCPCS: 36415; 84132

== ENCOUNTER 2025-04-09 08:07 | Outpatient (OUT) | payer MEDICARE, SELFPAY ==
--- OUTSIDE RECORDS SUMMARY | 2025-04-09 08:14 | XMS_ITS | Encounter Summary ---
Author Organization [facility] Address [address] [place] [address] Care Team Providers Care Postpartum Rn Name Role Phone Jayy Guzman MD Primary Care Provider [phone] Jie Johnson APRN.TUBE AND MANIFOLD BUILDER Unavailable [phone] Jayy Parekr MD Unavailable Unavail able Roxana Wagner RN Unavailable [phone] Source Comments In the event this information is protected by the Federal Confidentiality of Alcohol and Drug AbusePatient Records regulations: The Federal rules restrict any use of the information to criminally investigate or prosecute any alcohol or drug abuse patient.[facility] Encounter Details Date Type Department Care [...] is lower risk 6 12/13/2022 Data from: https://www.neighborhoodatlas.medicine.[facility].edu/. Last address used for calculation [address] [place] [address] [address] 12/13/2022 Comments No Sex and [...] on filedocumented in this encounter Care Teams Postpartum Rn Relationship Specialty Start Date End Date Jayy Guzman MD [address] [place] [address] PCP - General 09/01/09 Jie Johnson, PAUL.TUBE AND MANIFOLD BUILDER [address] [facility] [place] [address] Nurse Practitioner Hematology/Oncology 01/16/23 Jayy Parker MD [address] [facility] [facility] [place] [address] Physician Hematology/Oncology 01/16/23 01/25/25 Roxana Wagner, RN [address] [facility] [facility] [place] [address] Specialty Print Support Specialist Hematology/Oncology 01/16/23 documented as of this encounter
--- OUTSIDE RECORDS SUMMARY | 2025-04-09 08:14 | XMS_ITS | Encounter Summary ---
Author Organization [facility] Address [address] [place] [address] Care Team Providers Care Senior Landscape Architect Name Role Phone Jayy Guzman MD Primary Care Provider [phone] Jie Johnson APRN.SOLAR INSTALLER Unavailable [phone] Jayy Parker MD Unavailable Unavail able Roxana Wagner RN Unavailable [phone] Source Comments In the event this [...] is lower risk 6 12/13/2022 Data from: https://www.neighborhoodatlas.medicine.[facility].edu/. Last address used for calculation [address] [place] [address] [address] 12/13/2022 Comments No Sex and [...] on filedocumented in this encounter Care Teams Senior Landscape Architect Relationship Specialty Start Date End Date Jayy Guzman MD [address] [place] [address] PCP - General 09/01/09 Jie Johnson, PAUL.SOLAR INSTALLER [address] [place] [address] Nurse Practitioner Hematology/Oncology 01/16/23 Jayy Parker MD [address] [place] [address] Physician Hematology/Oncology 01/16/23 01/25/25 Roxana Wagner, RN [address] [place] [address] Specialty Wood Miller Hematology/Oncology 01/16/23 documented as of this encounter
--- OUTSIDE RECORDS SUMMARY | 2025-04-09 08:14 | XMS_ITS | Encounter Summary ---
Author Organization [facility] Address [address] [place] [address] Care Team Providers Care Flight Director Name Role Phone Kartik Guzman MD Primary Care Provider [phone] Zo Tavarez FIRE ADJUSTER Unavailable Marely Seals NP Unavailable Kandace Harvey CLINICAL MANAGER Unavailable [phone] Kartik Guzman MD Unavailable [phone] Marcellus Valenzuela DO Unavailable [phone] Marcellus Valenzuela DO Primary Care Provider [phone] Marcellus Valenzuela DO Primary Care Provider [phone] Encounter Details Date Type Department Care Team [...] declined 04/15/2023 How often do you attend [facility] or episcopalian services? Patient declined 04/15/2023 Do [...] Recorded Patient Health Questionnaire-2 Score 0 01/28/2023 [facility] of Occupat ional Health - Occupational [...] 1:20 PM EDT Office Visit [facility] [address], [address] [place] [address] Marcellus Valenzuela DO [address] [place] [address] documented as of this encounter Procedures Procedure Name Priority Date/Time Associated Diagnosis Comments [facility] TSH SERPL-ACNC Routine 09/24/2023 1: 04 PM EST XR CHEST 2V FRONTAL/LAT 09/24/2023 1:03 PM EST documented in this encounter Results * [facility] TSH SERPL-ACNC (09/24/2023 1:04 PM EST) Pathologist [facility] TSH SERPL-ACNC 3.350 0.270 - 4.200 mIU/L [facility] 09/24/2023 1:04 PM EST 09/24/2023 10:43 PM EST Narrative SHELBY - 09/25/2023 5:35 AM EST Specimen Type: BLOOD SPECIMEN Ordering Facility: [facility] Address: [address] [place] [address] Original Ordering Provider: KARTIK CORREA us Generic External Data Provider CLINAIRVEND F inal Result [facility] [address] [facility] [place] [address] * XR CHEST 2V FRONTAL/LAT (09/24/2023 1:03 [...] January 2023 and appears new from the access spec radiograph from the CT performed in June [...] any questions regarding this interpretation, please call [phone]. If you are unable to reach us at the number above, please feel free to contact [facility] at [phone]. [id number]^[email or web address]^SI^ACN Procedure Note Radiology, Radiologist, - 09/25/2023 * [...] January 2023 and appears new from the access spec radiograph from the CT performed in June [...] any questions regarding this interpretation, please call [phone]. If you are unable to reach us at the number above, please feel free to contact [facility] at [phone]. [id number]^AGFA_IDC^SI^ACN us Generic External Data Provider [facility] Final Result documented in this encounter Visit Diagnoses Not on filedocumented in this encounter Care Teams Flight Director Relationship Specialty Start Date End Date Kartik Guzman MD [address] [place] [address] PCP - General Family Medicine 12/28/22 12/16/24 Kartik Guzman MD [address] [place] [address] PCP - Carolynn KEN 02/20/24 Marcellus Valenzuela DO [address] [place] [address] PCP - General Family Medicine 12/17/24 02/16/25 Marcellus Valenzuela DO [address] [place] [address] PCP - General Family Medicine 02/17/25 Zo Tavarez LSW [address] [place] [address] Welding Teacher Family Medicine 02/22/23 Marely Seals NP [address] [place] [address] Nurse Practitioner Family Medicine 10/24/23 10/21/24 Kandace Harvey NP [address] [place] [address] Nurse Practitioner Family Medicine 10/24/23 12/16/24 Marcellus Valenzuela DO [address] [place] [address] Referring Physician Family Medicine 05/29/24 02/16/25 documented as of this encounter
--- OUTSIDE RECORDS SUMMARY | 2025-04-09 08:14 | XMS_ITS | Encounter Summary ---
Author Organization [facility] Address [address] [place] [address] Care Team Providers Care Retirement Manager Name Role Phone Jayy Guzman MD Primary Care Provider [phone] Zo Tavarez DESK REPORTER Unavailable Marely Seals NP Unavailable Kandace Harvey SCALE AGENT Unavailable [phone] Jayy Guzman MD Unavailable [phone] Marcellus Valenzuela DO Unavailable [phone] Marcellus Valenzuela DO Primary Care Provider [phone] Marcellus Valenzuela DO Primary Care Provider [phone] Encounter Details Date Type Department Care Team (Late st Contact Info) Description 09/04/2023 Abstract [facility] [address] [place] [address] Jayy Guzman MD [address] [place] [address] Social History Tobacco Use Types Packs/Day Years [...] How often do you attend chur or sikh services? Patient declined 04/15/2023 Do you belong [...] Recorded Patient Health Questionnaire-2 Score 0 01/28/2023 [facility] [place] of Occupat ional Health - Occupational Stress [...] Family Practice [address], [facility] 340 [place] [address] Marcellus Valenzuela DO [address] [facility] 340 [place] [address] documented as of this encounter Visit Diagnoses Not on filedocumented in this encounter Care Teams Retirement Manager Relationship Specialty Start Date End Date Jayy Guzman MD [address] [place] [address] PCP - General Family Medicine 12/28/22 12/16/24 Jayy Guzman MD [address] [place] [address] PCP - Craolynn KEN 02/20/24 Marcellus Valenzuela DO [address] [place] [address] PCP - General Family Medicine 12/17/24 02/16/25 Marcellus Valenzuela DO [address] [place] [address] PCP - General Family Medicine 02/17/25 Zo Tavarez LSW [address] [place] [address] Respiratory Therapy Manager Family Medicine 02/22/23 Marely Seals NP [address] [place] [address] Nurse Practitioner Family Medicine 10/24/23 10/21/24 Kandace Harvey NP [address] [place] [address] Nurse Practitioner Family Medicine 10/24/23 12/16/24 Marcellus Valenzuela DO [address] [place] [address] Referring Physician Family Medicine 05/29/24 02/16/25 documented as of this encounter
--- OUTSIDE RECORDS SUMMARY | 2025-04-09 08:14 | XMS_ITS | Encounter Summary ---
Author Organization [facility] Address [address] [place] [address] Care Team Providers Care Machine Stuffer Automatic Name Role Phone Jayy Guzman MD Primary Care Provider [phone] Zo Tavarez CONTACT CENTER REPRESENTATIVE Unavailable Marely Seals NP Unavailable Kandace Harvey SCIENTIFIC PROGRAMMER ANALYST Unavailable [phone] Jayy Guzman MD Unavailable [phone] Marcellus Valenzuela DO Unavailable [phone] Marcellus Valenzuela DO Primary Care Provider [phone] Marcellus Valenzuela DO Primary Care Provider [phone] Encounter Details Date Type Department Care Team (Late st Contact Info) Description 09/25/2023 Abstract [facility] [address] [place] [address] Jayy Guzman MD [address] [place] [address] Social History Tobacco Use Types Packs/Day Years [...] declined 04/15/2023 How often do you attend [facility] or orthodox services? Patient declined 04/15/2023 Do [...] Patient Health Questionnaire-2 Score 0 01/28/2023 [facility] [place] of Occupat ional Health - Occupational Stress [...] [address], [address] [place] [address] Marcellus Valenzuela DO [address] [facility] 340 [place] [address] documented as of this encounter Visit Diagnoses Not on filedocumented in this encounter Care Teams Machine Stuffer Automatic Relationship Specialty Start Date End Date Jayy Guzman MD [address] [place] [id number] PCP - General Family Medicine 12/28/22 12/16/24 Jayy Guzman MD [address] [place] [address] PCP - [place] JESUS MANUEL 02/20/24 Marcellus Valenzuela DO [address] [place] [address] PCP - General Family Medicine 12/17/24 02/16/25 Marcellus Valenzuela DO [address] [place] [address] PCP - General Family Medicine 02/17/25 Zo Tavarez LSW [address] [place] [address] Assurance Senior Manager Insurance Family Medicine 02/22/23 Marely Seals NP [address] [place] [address] Nurse Practitioner Family Medicine 10/24/23 10/21/24 Kandace Harvey NP [address] [place] [address] Nurse Practitioner Family Medicine 10/24/23 12/16/24 Marcellus Valenzuela DO [address] [place] [address] Referring Physician Family Medicine 05/29/24 02/16/25 documented as of this encounter
--- OUTSIDE RECORDS SUMMARY | 2025-04-09 08:14 | XMS_ITS | Encounter Summary ---
Author Organization [facility] Address [address] [place] [address] Care Team Providers Care Seater Assembler Name Role Phone Jayy Guzman MD Primary Care Provider [phone] Zo Tavarez HANDBAG STITCHER Unavailable Marely Seals NP Unavailable Kandace Harvey GEOLOGIST PETROLEUM Unavailable [phone] Jayy Guzman MD Unavailable [phone] Marcellus Valenzuela DO Unavailable [phone] Marcellus Valenzuela DO Primary Care Provider Marcellus Valenzuela DO Primary Care Provider [phone] Encounter Details Date Type Department Care Team (Late st Contact Info) Description 09/25/2023 Abstract [facility] [address] [place] [address] Jayy Guzman MD [address] [place] [address] Social History Tobacco Use Types Packs/Day Years [...] declined 04/15/2023 How often do you attend [facility] or temple services? Patient declined 04/15/2023 Do you belong to any clubs o r organizations such as episcopal groups, unions, fraternal or athletic groups, or [...] Patient Health Questionnaire-2 Score 0 01/28/2023 [facility] [place] of Occupat ional Health - Occupational Stress [...] [address], [address] [place] [address] Marcellus Vlaenzuela DO [address] [facility] 340 [place] [address] documented as of this encounter Visit Diagnoses Not on filedocumented in this encounter Care Teams Seater Assembler Relationship Specialty Start Date End Date Jayy Guzman MD [address] [place] [id number] PCP - General Family Medicine 12/28/22 12/16/24 Jayy Guzman MD [address] [place] [address] PCP - [place] JESUS MANUEL 02/20/24 Marcellus Valenzuela DO [address] [place] [address] PCP - General Family Medicine 12/17/24 02/16/25 Marcellus Valenzuela DO [address] [place] [address] PCP - General Family Medicine 02/17/25 Zo Tavarez LSW [address] [place] [address] Naval Science Teacher Family Medicine 02/22/23 Marely Seals NP [address] [place] [address] Nurse Practitioner Family Medicine 10/24/23 10/21/24 Kandace Harvey NP [address] [place] [address] Nurse Practitioner Family Medicine 10/24/23 12/16/24 Marcellus Valenzuela DO [address] [place] [address] Referring Physician Family Medicine 05/29/24 02/16/25 documented as of this encounter
--- OUTSIDE RECORDS SUMMARY | 2025-04-09 08:15 | XMS_ITS | Encounter Summary ---
Author Organization [facility] Address [address] [place] [address] Care Team Providers Care Senior Loan Officer Name Role Phone Jayy Guzman MD Primary Care Provider Zo Tavarez CAR HIKER Unavailable Marely Seals NP Unavailable Kandace Harvey ROSE GRADING SUPERVISOR Unavailable [phone] Jayy Guzman MD Unavailable [phone] Marcellus Valenzuela DO Unavailable [phone] Marcellus Valenzuela DO Primary Care Provider [phone] Marcellus Valenzuela DO Primary Care Provider [phone] Encounter Details Date Type Department Care Team [...] declined 04/15/2023 How often do you attend [facility] or religion services? Patient declined 04/15/2023 Do you belong to any clubs o r organizations such as mormonism groups, unions, fraternal or athletic groups, or [...] Recorded Patient Health Questionnaire-2 Score 0 01/28/2023 [facility] of Occupat ional Health - [...] 1:20 PM EDT Office Visit [facility] [address], [address] [place] [address] Marcellus Valenzuela DO [address] [place] [address] documented as of this encounter Procedures Procedure [...] DATE OF EXAM: Sep 30 2023 12:43PM [facility] 0541 - CT CHEST WO IVCON / [...] mass in the visualized field of view. Ground Crewman Mission Support (topogram) images: No additional findings. IMPRESSION: 1. [...] any questions regarding this interpretation, please call [phone]. If you are unable to reach us at the number above, please feel free to contact [facility] at [phone]. [id number]^AGFA_IDC^SI^ACN Procedure Note Radiology, Radiologist, - 09/30/2023 * * *Final Report* * * DATE OF EXAM: Sep 30 2023 12:43PM [facility] - CT CHEST WO IVCON / PROCEDURE [...] mass in the visualized field of view. Ground Crewman Mission Support (topogram) images: No additional findings. IMPRESSION: 1. [...] any questions regarding this interpretation, please call [phone]. If you are unable to reach us at the number above, please feel free to contact [facility] at [phone]. [id number]^AGFA_IDC^SI^ACN us Generic External Data Provider IMG CT PROCEDURES Final Result documented in this encounter Visit Diagnoses Not on filedocumented in this encounter Care Teams Senior Loan Officer Relationship Specialty Start Date End Date Jayy Guzman MD [address] [place] [address] PCP - General Family Medicine 12/28/22 12/16/24 Jayy Guzman MD [address] [place] [address] PCP - Carolynn KEN 02/20/24 Marcellus Valenzuela DO [address] [place] [address] PCP - General Family Medicine 12/17/24 02/16/25 Marcellus Valenzuela DO [address] [place] [address] PCP - General Family Medicine 02/17/25 Zo Tavarez LSW [address] [place] [address] Cherry Pitter Family Medicine 02/22/23 Marely Seals NP [address] [place] [address] Nurse Practitioner Family Medicine 10/24/23 10/21/24 Kandace Harvey, ROSE GRADING SUPERVISOR [address] [place] [address] Nurse Practitioner Family Medicine 10/24/23 12/16/24 Marcellus Valenzuela DO [address] [place] [address] Referring Physician Family Medicine 05/29/24 02/16/25 documented as of this encounter
--- OUTSIDE RECORDS SUMMARY | 2025-04-09 08:15 | XMS_ITS | Encounter Summary ---
Author Organization [facility] Address [address] [place] [address] Care Team Providers Care Music Historian Name Role Phone Jayy Guzman MD Primary Care Provider [phone] Zo Tavarez ASPHALT ENGINEER Unavailable Marely Seals NP Unavailable Kandace Harvey CAR RENTAL MANAGER Unavailable [phone] Jayy Guzman MD Unavailable [phone] Marcellus Valenzuela DO Unavailable [phone] Marcellus Valenzuela DO Primary Care Provider [phone] Marcellus Valenzuela DO Primary Care Provider [phone] Encounter Details Date Type Department Care Team (Late st Contact Info) Description 03/12/2024 Abstract [facility] [address] [place] [address] Jayy Guzman MD [address] [place] [address] Social History Tobacco Use Types Packs/Day Years [...] How often do you attend chur or yazidi services? Patient declined 04/15/2023 Do you belong to any clubs o r organizations such as jew groups, unions, fraternal or athletic groups, or [...] Recorded Patient Health Questionnaire-2 Score 4 03/12/2024 [facility] [place] of Occupat ional Health - Occupational Stress [...] family down Several days 03/12/2024 10:00 AM Luara Daly MA Trouble concentrating on things, such [...] 1:20 PM EDT Office Visit [facility] [address], [facility] 340 [place] [address] Marcellus Valenzuela DO [address] [place] [address] documented as of this encounter Visit Diagnoses Not on filedocumented in this encounter Additional Health Concerns Assessment Noted Time PHQ-9 Depression Total Score: 10 024 10:00 AM EDT documented as of this encounter Care Teams Music Historian Relationship Specialty Start Date End Date Jayy Guzman MD [address] [place] [address] PCP - General Family Medicine 12/28/22 12/16/24 Jayy Guzman MD [address] [place] [address] PCP - Carolynn KEN 02/20/24 Marcellus Valenzuela DO [address] [place] [address] PCP - General Family Medicine 12/17/24 02/16/25 Marcellus Valenzuela DO [address] [place] [address] PCP - General Family Medicine 02/17/25 Zo Tavarez LSW [address] [place] [address] Psychology Physician Family Medicine 02/22/23 Marely Seals NP [address] [place] [address] Nurse Practitioner Family Medicine 10/24/23 10/21/24 Kandace Harvey NP [address] [place] [address] Nurse Practitioner Family Medicine 10/24/23 12/16/24 Marcellus Valenzuela DO [address] [place] [address] Referring Physician Family Medicine 05/29/24 02/16/25 documented as of this encounter
--- OUTSIDE RECORDS SUMMARY | 2025-04-09 08:15 | XMS_ITS | Encounter Summary ---
Author Organization [facility] Address [address] [place] [address] Care Team Providers Care Tire Finisher Name Role Phone Jayy Guzman MD Primary Care Provider [phone] Zo Tavarez DOCTOR ASSISTANT Unavailable Marely Seals NP Unavailable Kandace Harvey NETWORK SECURITY ENGINEER Unavailable [phone] Jayy Guzman MD Unavailable [phone] Marcellus Valenzuela DO Unavailable [phone] Marcellus Valenzuela DO Primary Care Provider [phone] Marcellus Valenzuela DO Primary Care Provider [phone] Encounter Details Date Type Department Care Team (Late st Contact Info) Description 01/01/2024 Abstract [facility] [address] [place] [address] Jayy Guzman MD [address] [place] [address] Social History Tobacco Use Types Packs/Day Years [...] declined 04/15/2023 How often do you attend [facility] or gnosticism services? Patient declined 04/15/2023 Do you belong to any clubs o r organizations such as hinduism groups, unions, fraternal or athletic groups, or [...] Health Questionnaire-2 Score 0 01/28/2023 [facility] [place] of Occupat ional Health - Occupational Stress [...] [address], [address] [place] [address] Marcellus Valenzuela DO [address] [facility] 340 [place] [address] documented as of this encounter Visit Diagnoses Not on filedocumented in this encounter Care Teams Tire Finisher Relationship Specialty Start Date End Date Jayy Guzman MD [address] [place] [id number] PCP - General Family Medicine 12/28/22 12/16/24 Jayy Guzman MD [address] [place] [address] PCP - [place] JESUS MANUEL 02/20/24 Marcellus Valenzuela DO [address] [place] [address] PCP - General Family Medicine 12/17/24 02/16/25 Marcellus Valenzuela DO [address] [place] [address] PCP - General Family Medicine 02/17/25 Zo Tavarez LSW [address] [place] [address] Facilities Officer Family Medicine 02/22/23 Marely Seals NP [address] [place] [address] Nurse Practitioner Family Medicine 10/24/23 10/21/24 Kandace Harvey NP [address] [place] [address] Nurse Practitioner Family Medicine 10/24/23 12/16/24 Marcellus Valenzuela DO [address] [place] [address] Referring Physician Family Medicine 05/29/24 02/16/25 documented as of this encounter
--- OUTSIDE RECORDS SUMMARY | 2025-04-09 08:15 | XMS_ITS | Encounter Summary ---
Author Organization [facility] Address [address] [place] [address] Care Team Providers Care Csr Name Role Phone Jayy Guzman MD Primary Care Provider [phone] Zo Tavarez OVERLAY PLASTICIAN Unavailable Marely Seals NP Unavailable Kandace Harvey AIR INTERCEPT CONTROLLER Unavailable [phone] Jayy Guzman MD Unavailable [phone] Marcellus Valenzuela DO Unavailable [phone] Marcellus Valenzuela DO Primary Care Provider [phone] Marcellus Valenzuela DO Primary Care Provider [phone] Encounter Details Date Type Department Care Team (Late st Contact Info) Description 12/10/2023 Abstract [facility] [address] [place] [address] Jayy Guzman MD [address] [place] [address] Social History Tobacco Use Types Packs/Day Years [...] 04/15/2023 How often do you attend [facility] or tenriism services? Patient declined 04/15/2023 [...] Recorded Patient Health Questionnaire-2 Score 0 01/28/2023 [facility] [place] of Occupat ional Health - Occupational Stress [...] [address], [address] [place] [address] Marcellus Valenzuela DO [address] [facility] [address] [place] [address] documented as of this encounter Visit Diagnoses Not on filedocumented in this encounter Care Teams Csr Relationship Specialty Start Date End Date Jayy Guzman MD [address] [place] [id number] PCP - General Family Medicine 12/28/22 12/16/24 Jayy Guzman MD [address] [place] [address] PCP - [place] JESUS MANUEL 02/20/24 Marcellus Valenzuela DO [address] [place] [address] PCP - General Family Medicine 12/17/24 02/16/25 Marcellus Valenzuela DO [address] [place] [address] PCP - General Family Medicine 02/17/25 Zo Tavarez LSW [address] [place] [address] Storage Administrator Family Medicine 02/22/23 Marely Seals NP [address] [place] [address] Nurse Practitioner Family Medicine 10/24/23 10/21/24 Kandace Harvey NP [address] [place] [address] Nurse Practitioner Family Medicine 10/24/23 12/16/24 Marcellus Valenzuela DO [address] [place] [address] Referring Physician Family Medicine 05/29/24 02/16/25 documented as of this encounter
--- OUTSIDE RECORDS SUMMARY | 2025-04-09 08:15 | XMS_ITS | Encounter Summary ---
Author Organization [facility] Address [address] [place] [address] Care Team Providers Care Repairer Finished Metal Name Role Phone Jayy Guzman MD Primary Care Provider [phone] Zo Tavarez LACE TEARING SUPERVISOR Unavailable Marely Seals NP Unavailable Kandace Harvey SHANK STITCHER Unavailable [phone] Jayy Guzman MD Unavailable [phone] Marcellus Valenzuela DO Unavailable [phone] Marcellus Valenzuela DO Primary Care Provider [phone] Marcellus Valenzuela DO Primary Care Provider [phone] Encounter Details Date Type Department Care Team (Late st Contact Info) Description 11/21/2023 [facility] [address] [place] [address] Jayy Guzman MD [address] [place] [address] Social History Tobacco Use Types Packs/Day Years [...] 04/15/2023 How often do you attend [facility] or zoroastrianism services? Patient declined 04/15/2023 Do you belong to any clubs o r organizations such as pentecostal groups, unions, fraternal or athletic groups, or [...] Recorded Patient Health Questionnaire-2 Score 0 01/28/2023 [facility] [place] of Occupat ional Health - Occupational Stress [...] [address] [place] [address] Marcellus Valenzuela DO [address] [facility] [address] [place] [address] documented as of this encounter Visit Diagnoses Not on filedocumented in this encounter Care Teams Repairer Finished Metal Relationship Specialty Start Date End Date Jayy Guzman MD [address] [place] [id number] PCP - General Family Medicine 12/28/22 12/16/24 Jayy Guzman MD [address] [place] [address] PCP - [place] JESUS MANUEL 02/20/24 Marcellus Valenzuela DO [address] [place] [address] PCP - General Family Medicine 12/17/24 02/16/25 Marcellus Valenzuela DO [address] [place] [address] PCP - General Family Medicine 02/17/25 Zo Tavarez LSW [address] [place] [address] Osteopathic Resident Family Medicine 02/22/23 Marely Seals NP [address] [place] [address] Nurse Practitioner Family Medicine 10/24/23 10/21/24 Kandace Harvey NP [address] [place] [address] Nurse Practitioner Family Medicine 10/24/23 12/16/24 Marcellus Valenzuela DO [address] [place] [address] Referring Physician Family Medicine 05/29/24 02/16/25 documented as of this encounter
--- OUTSIDE RECORDS SUMMARY | 2025-04-09 08:15 | XMS_ITS | Encounter Summary ---
Author Organization [facility] Address [address] [place] [address] Care Team Providers Care Motor Hotel Manager Name Role Phone Jayy Guzman MD Primary Care Provider [phone] Zo Tavarez SINGLE STAYER OPERATOR Unavailable Marely Seals NP Unavailable Kandace Harvey DENTIST/OWNER Unavailable [phone] Jayy Guzman MD Unavailable [phone] Marcellus Valenzuela DO Unavailable [phone] Marcellus Valenzuela DO Primary Care Provider [phone] Marcellus Valenzuela DO Primary Care Provider [phone] Encounter Details Date Type Department Care Team [...] often do you attend [facility] or [facility]aritan services? Patient declined 04/15/2023 Do [...] Recorded Patient Health Questionnaire-2 Score 4 03/12/2024 [facility] of Occupat ional Health [...] 1:20 PM EDT Office Visit [facility] [address], [address] [place] [address] Marcellus Valenzuela DO [address] [place] [address] documented as of this encounter Procedures Procedure [...] * Uptake Time: 50 minutes * Radiopharmaceutical: M15-Govyvrwptawqsxxdnh (FDG) COMPARISON: 12/10/2022 CORRELATION: CT chest 09/30/2023 [...] any questions regarding this interpretation, please call [phone]. If you are unable to reach us at the number above, please feel free to contact [facility] at [phone]. [id number]^[email or web address]^SI^ACN Procedure Note Radiology, Radiologist, - 03/17/2024 * [...] * Uptake Time: 50 minutes * Radiopharmaceutical: D54-Betwshjvswangqyobh (FDG) COMPARISON: 12/10/2022 CORRELATION: CT chest 09/30/2023 [...] any questions regarding this interpretation, please call [phone]. If you are unable to reach us at the number above, please feel free to contact [facility] at [phone]. [id number]^[email or web address]^SI^ACN us Generic External Data Provider [facility] Final Result documented in this encounter Visit Diagnoses Not on filedocumented in this encounter Additional Health Concerns Assessment Noted Time PHQ-9 Depression Total Score: 10 024 10:00 AM EDT documented as of this encounter Care Teams Motor Hotel Manager Relationship Specialty Start Date End Date Jayy Guzman MD [address] [place] [address] PCP - General Family Medicine 12/28/22 12/16/24 Jayy Guzman MD [address] [place] [address] PCP - Carolynn KEN 02/20/24 Marcellus Valenzuela DO [address] [place] [address] PCP - General Family Medicine 12/17/24 02/16/25 Marcellus Valenzuela DO [address] [place] [address] PCP - General Family Medicine 02/17/25 Zo Tavarez LSW [address] [place] [address] Wood Treating Inspector Family Medicine 02/22/23 Marely Seals NP [address] [place] [address] Nurse Practitioner Family Medicine 10/24/23 10/21/24 Kandace Harvey DENTIST/OWNER [address] [place] [address] Nurse Practitioner Family Medicine 10/24/23 12/16/24 Marcellus Valenzuela DO [address] [place] [address] Referring Physician Family Medicine 05/29/24 02/16/25 documented as of this encounter
--- OUTSIDE RECORDS SUMMARY | 2025-04-09 08:15 | XMS_ITS | Encounter Summary ---
Author Organization [facility] Address [address] [place] [address] Care Team Providers Care Costuming Supervisor Name Role Phone Jayy Guzman MD Primary Care Provider [phone] Zo Tavarez CORK PRESSING MACHINE OPERATOR Unavailable Marely Seals NP Unavailable Kandace Harvey GALLEY WORKER Unavailable [phone] Jayy Guzman MD Unavailable [phone] Marcellus Valenzuela DO Unavailable [phone] Marcellus Valenzuela DO Primary Care Provider [phone] Marcellus Valenzuela DO Primary Care Provider Encounter Details Date Type Department Care Team (Late st Contact Info) Description 10/09/2023 Abstract [facility] [address] [place] [address] Jayy Guzman MD [address] [place] [address] Social History Tobacco Use Types Packs/Day Years [...] declined 04/15/2023 How often do you attend [facility] or catholic services? Patient declined 04/15/2023 Do [...] Recorded Patient Health Questionnaire-2 Score 0 01/28/2023 [facility] [place] of Occupat ional Health - Occupational Stress [...] [address] [place] [address] Marcellus Valenzuela DO [address] [facility] [address] [place] [address] documented as of this encounter Visit Diagnoses Not on filedocumented in this encounter Care Teams Costuming Supervisor Relationship Specialty Start Date End Date Jayy Guzman MD [address] [place] [id number] PCP - General Family Medicine 12/28/22 12/16/24 Jayy Guzman MD [address] [place] [address] PCP - [place] JESUS MANUEL 02/20/24 Marcellus Valenzuela DO [address] [place] [address] PCP - General Family Medicine 12/17/24 02/16/25 Marcellus Valenzuela DO [address] [place] [address] PCP - General Family Medicine 02/17/25 Zo Tavarez LSW [address] [place] [address] Ribbing Machine Operator Family Medicine 02/22/23 Marely Seals NP [address] [place] [address] Nurse Practitioner Family Medicine 10/24/23 10/21/24 Kandace Harvey NP [address] [place] [address] Nurse Practitioner Family Medicine 10/24/23 12/16/24 Marcellus Valenzuela DO [address] [place] [address] Referring Physician Family Medicine 05/29/24 02/16/25 documented as of this encounter
--- OUTSIDE RECORDS SUMMARY | 2025-04-09 08:15 | XMS_ITS ---
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
--- OUTSIDE RECORDS SUMMARY | 2025-04-09 08:15 | XMS_ITS | Encounter Summary ---
Author Organization [facility] Address [address] [place] [address] Care Team Providers Care Janitor Cleaner Name Role Phone Jayy Guzman MD Primary Care Provider [phone] Zo Tavarez AGRICULTURAL TECHNICIAN Unavailable Marely Seals NP Unavailable Kandace Harvey FORECAST ANALYST Unavailable [phone] Jayy Guzman MD Unavailable [phone] Marcellus Valenzuela DO Unavailable [phone] Marcellus Valenzuela DO Primary Care Provider [phone] Marcellus Valenzuela DO Primary Care Provider [phone] Encounter Details Date Type Department Care Team (Late st Contact Info) Description 10/29/2023 Abstract [facility] [address] [place] [address] Jayy Guzman MD [address] [place] [address] Social History Tobacco Use Types Packs/Day Years [...] declined 04/15/2023 How often do you attend [facility] or temple services? Patient declined 04/15/2023 Do you belong to any clubs o r organizations such as holiness groups, unions, fraternal or athletic groups, or [...] Recorded Patient Health Questionnaire-2 Score 0 01/28/2023 [facility] [place] of Occupat ional Health - Occupational Stress [...] [address] [place] [address] Marcellus Valenzuela DO [address] [facility] [address] [place] [address] documented as of this encounter Visit Diagnoses Not on filedocumented in this encounter Care Teams Janitor Cleaner Relationship Specialty Start Date End Date Jayy Guzman MD [address] [place] [id number] PCP - General Family Medicine 12/28/22 12/16/24 Jyay Guzman MD [address] [place] [address] PCP - [place] JESUS MANUEL 02/20/24 Marcellus Valenzuela DO [address] [place] [address] PCP - General Family Medicine 12/17/24 02/16/25 Marcellus Valenzuela DO [address] [place] [address] PCP - General Family Medicine 02/17/25 Zo Tavarez LSW [address] [place] [address] Finisher Merchant Products Family Medicine 02/22/23 Marely Seals NP [address] [place] [address] Nurse Practitioner Family Medicine 10/24/23 10/21/24 Kandace Harvey NP [address] [place] [address] Nurse Practitioner Family Medicine 10/24/23 12/16/24 Marcellus Valenzuela DO [address] [place] [address] Referring Physician Family Medicine 05/29/24 02/16/25 documented as of this encounter
--- OUTSIDE RECORDS SUMMARY | 2025-04-09 08:16 | XMS_ITS | Encounter Summary ---
Author Organization [facility] Address [address] [place] [address] Care Team Providers Care Core Analyst Name Role Phone Jayy Guzman MD Primary Care Provider [phone] Zo Tavarez PRODUCTION SUPPORT SPECIALIST Unavailable Marely Seals NP Unavailable Kandace Harvey CLOTHES SEPARATOR Unavailable [phone] Jayy Guzman MD Unavailable [phone] Marcellus Valenzuela DO Unavailable [phone] Marcellus Valenzuela DO Primary Care Provider [phone] Marcellus Valenzuela DO Primary Care Provider [phone] Encounter Details Date Type Department Care Team (Late st Contact Info) Description 05/19/2024 Abstract [facility] [address] [place] [address] Jayy Guzman MD [address] [place] [address] Social History Tobacco Use Types Packs/Day Years [...] Recorded Patient Health Questionnaire-2 Score 4 03/12/2024 [facility] [place] of Occupat ional Health - Occupational Stress [...] [address] [place] [address] Marcellus Valenzuela DO [address] [place] [address] documented as of this encounter Visit Diagnoses Not on filedocumented in this encounter Additional Health Concerns Assessment Noted Time PHQ-9 Depression Total Score: 10 024 10:00 AM EDT documented as of this encounter Care Teams Core Analyst Relationship Specialty Start Date End Date Guzman, Jayy A, MD [address] [place] [address] PCP - General Family Medicine 12/28/22 12/16/24 Jayy Guzman MD [address] [place] [address] PCP - Carolynn KEN 02/20/24 Marcellus Valenzuela DO [address] [place] [address] PCP - General Family Medicine 12/17/24 02/16/25 Marcellus Valenzuela DO [address] [place] [address] PCP - General Family Medicine 02/17/25 Zo Tavarez LSW [address] [place] [address] Prop And Effects Designer Family Medicine 02/22/23 Marely Seals NP [address] [place] [address] Nurse Practitioner Family Medicine 10/24/23 10/21/24 Kandace Harvey NP [address] [place] [address] Nurse Practitioner Family Medicine 10/24/23 12/16/24 Marcellus Valenzuela DO [address] [place] [address] Referring Physician Family Medicine 05/29/24 02/16/25 documented as of this encounter
--- OUTSIDE RECORDS SUMMARY | 2025-04-09 08:16 | XMS_ITS | Encounter Summary ---
Author Organization [facility] Address [address] [place] [address] Care Team Providers Care Mixing House Operator Name Role Phone Jayy Guzman MD Primary Care Provider [phone] Zo Tavarez QUILLER MACHINE FIXER Unavailable Marely Seals NP Unavailable Kandace Harvey THERAPIST RADIATION Unavailable [phone] Jayy Guzman MD Unavailable [phone] Marcellus Valenzuela DO Unavailable [phone] Marcellus Valenzuela DO Primary Care Provider [phone] Marcellus Valenzuela DO Primary Care Provider [phone] Encounter Details Date Type Department Care Team (Late st Contact Info) Description 05/26/2024 Abstract [facility] [address] [place] [address] Jayy Guzman MD [address] [place] [address] Social History Tobacco Use Types Packs/Day Years [...] Recorded Patient Health Questionnaire-2 Score 4 03/12/2024 [facility] [place] of Occupat ional Health - Occupational Stress [...] [address] [place] [address] Marcellus Valenzuela DO [address] [place] [address] documented as of this encounter Visit Diagnoses Not on filedocumented in this encounter Additional Health Concerns Assessment Noted Time PHQ-9 Depression Total Score: 10 024 10:00 AM EDT documented as of this encounter Care Teams Mixing House Operator Relationship Specialty Start Date End Date Guzman, Jayy A, MD [address] [place] [address] PCP - General Family Medicine 12/28/22 12/16/24 Jayy Guzman MD [address] [place] [address] PCP - Carolynn KEN 02/20/24 Marcellus Valenzuela DO [address] [place] [address] PCP - General Family Medicine 12/17/24 02/16/25 Marcellus Valenzuela DO [address] [place] [address] PCP - General Family Medicine 02/17/25 Zo Tavarez LSW [address] [place] [address] Dolphin Researcher Family Medicine 02/22/23 Marely Seals NP [address] [place] [address] Nurse Practitioner Family Medicine 10/24/23 10/21/24 Kandace Harvey NP [address] [place] [address] Nurse Practitioner Family Medicine 10/24/23 12/16/24 Marcellus Valenzuela DO [address] [place] [address] Referring Physician Family Medicine 05/29/24 02/16/25 documented as of this encounter
--- OUTSIDE RECORDS SUMMARY | 2025-04-09 08:16 | XMS_ITS | Encounter Summary ---
Author Organization [facility] Address [address] [place] [address] Care Team Providers Care Child And Family Therapist Name Role Phone Jayy Guzman MD Primary Care Provider [phone] Zo Tavarez LOAN EXPEDITOR Unavailable Marely Seals NP Unavailable Kandace Harvey ORCHARD PRUNER Unavailable [phone] Jayy Guzman MD Unavailable [phone] Marcellus Valenzuela DO Unavailable [phone] Marcellus Valenzuela DO Primary Care Provider [phone] Marcellus Valenzuela DO Primary Care Provider [phone] Encounter Details Date Type Department Care Team (Late st Contact Info) Description 05/19/2024 Abstract [facility] [address] [place] [address] Jayy Guzmna MD [address] [place] [address] Social History Tobacco Use Types Packs/Day Years [...] Recorded Patient Health Questionnaire-2 Score 4 03/12/2024 [facility] [place] of Occupat ional Health - Occupational Stress [...] [address] [place] [address] Marcellus Valenzuela DO [address] [place] [address] documented as of this encounter Visit Diagnoses Not on filedocumented in this encounter Additional Health Concerns Assessment Noted Time PHQ-9 Depression Total Score: 10 024 10:00 AM EDT documented as of this encounter Care Teams Child And Family Therapist Relationship Specialty Start Date End Date Guzman, Jayy A, MD [address] [place] [address] PCP - General Family Medicine 12/28/22 12/16/24 Jayy Guzman MD [address] [place] [address] PCP - Carolynn KEN 02/20/24 Marcellus Valenzuela DO [address] [place] [address] PCP - General Family Medicine 12/17/24 02/16/25 Marcellus Valenzuela DO [address] [place] [address] PCP - General Family Medicine 02/17/25 Zo Tavarez LSW [address] [place] [address] Tassel Maker Family Medicine 02/22/23 Marely Seals NP [address] [place] [address] Nurse Practitioner Family Medicine 10/24/23 10/21/24 Kandace Harvey NP [address] [place] [address] Nurse Practitioner Family Medicine 10/24/23 12/16/24 Marcellus Valenzuela DO [address] [place] [address] Referring Physician Family Medicine 05/29/24 02/16/25 documented as of this encounter
--- OUTSIDE RECORDS SUMMARY | 2025-04-09 08:16 | XMS_ITS | Encounter Summary ---
Author Organization [facility] Address [address] [place] [address] Care Team Providers Care Staff Research Associate Name Role Phone Jayy Guzman MD Primary Care Provider [phone] Zo Tavarez RN OSTOMY Unavailable Marely Seals NP Unavailable Kandace Harvey COMMUNICATION SPEC Unavailable [phone] Jayy Guzman MD Unavailable [phone] Marcellus Valenzuela DO Unavailable [phone] Marcellus Valenzuela DO Primary Care Provider [phone] Marcellus Valenzuela DO Primary Care Provider [phone] Encounter Details Date Type Department Care Team (Late st Contact Info) Description 05/26/2024 Abstract [facility] [place] [address] [place] [address] Jayy Guzman MD [address] [place] [address] Social History Tobacco Use Types Packs/Day Years [...] Recorded Patient Health Questionnaire-2 Score 4 03/12/2024 [facility] [place] of Occupat ional Health - Occupational Stress [...] [address] [place] [address] Marcellus Valenzuela DO [address] [place] [address] documented as of this encounter Visit Diagnoses Not on filedocumented in this encounter Additional Health Concerns Assessment Noted Time PHQ-9 Depression Total Score: 10 024 10:00 AM EDT documented as of this encounter Care Teams Staff Research Associate Relationship Specialty Start Date End Date Guzman, Jayy A, MD [address] [place] [address] PCP - General Family Medicine 12/28/22 12/16/24 Jayy Guzman MD [address] [place] [address] PCP - Carolynn KEN 02/20/24 Marcellus Valenzuela DO [address] [place] [address] PCP - General Family Medicine 12/17/24 02/16/25 Marcellus Valenzuela DO [address] [place] [address] PCP - General Family Medicine 02/17/25 Zo Tavarez LSW [address] [place] [address] Steam Conditioning Operator Family Medicine 02/22/23 Marely Seals NP [address] [place] [address] Nurse Practitioner Family Medicine 10/24/23 10/21/24 Kandace Harvey NP [address] [place] [address] Nurse Practitioner Family Medicine 10/24/23 12/16/24 Marcellus Valenzuela DO [address] [place] [address] Referring Physician Family Medicine 05/29/24 02/16/25 documented as of this encounter
--- OUTSIDE RECORDS SUMMARY | 2025-04-09 08:16 | XMS_ITS | Encounter Summary ---
Author Organization [facility] Address [address] [place] [address] Care Team Providers Care Fabrication Lead Name Role Phone Jayy Guzman MD Primary Care Provider [phone] Zo Tavarez POWER ORIGINATOR Unavailable Marely Seals NP Unavailable Kandace Harvey ENROLLED NURSE Unavailable [phone] Jayy Guzman MD Unavailable [phone] Marcellus Valenzuela DO Unavailable [phone] Marcellus Valenzuela DO Primary Care Provider [phone] Marcellus Valenzuela DO Primary Care Provider [phone] Encounter Details Date Type Department Care Team (Late st Contact Info) Description 05/28/2024 Abstract [facility] [place] [facility] [address] [place] [address] Jayy Guzman MD [address] [place] [address] Social History Tobacco Use Types Packs/Day Years [...] any clubs o r organizations such as gnosticist groups, unions, fraternal or athletic groups, or [...] 4 03/12/2024 [facility] [place] of Occupat ional Health - Occupational Stress [...] [address] [place] [address] Marcellus Valenzuela DO [address] [place] [address] documented as of this encounter Visit Diagnoses Not on filedocumented in this encounter Additional Health Concerns Assessment Noted Time PHQ-9 Depression Total Score: 10 024 10:00 AM EDT documented as of this encounter Care Teams Fabrication Lead Relationship Specialty Start Date End Date Guzman, Jayy A, MD [address] [place] [address] PCP - General Family Medicine 12/28/22 12/16/24 Jayy Guzman MD [address] [place] [address] PCP - Carolynn KEN 02/20/24 Marcellus aVlenzuela DO [address] [place] [address] PCP - General Family Medicine 12/17/24 02/16/25 Marcellus Valenzuela DO [address] [place] [address] PCP - General Family Medicine 02/17/25 Zo Tavarez LSW [address] [place] [address] Forestry Engineer Family Medicine 02/22/23 Marely Seals NP [address] [place] [address] Nurse Practitioner Family Medicine 10/24/23 10/21/24 Kandace Harvey NP [address] [place] [address] Nurse Practitioner Family Medicine 10/24/23 12/16/24 Marcellus Valenzuela DO [address] [place] [address] Referring Physician Family Medicine 05/29/24 02/16/25 documented as of this encounter
--- OUTSIDE RECORDS SUMMARY | 2025-04-09 08:16 | XMS_ITS | Encounter Summary ---
Author Organization [facility] Address [address] [place] [address] Care Team Providers Care Radiation Oncology Nurse Name Role Phone Jayy Guzman MD Primary Care Provider [phone] Jie Johnson APRN.FONDANT MACHINE OPERATOR Unavailable [phone] Jayy Parker MD Unavailable Unavail able Roxana Wagner RN Unavailable [phone] Source Comments In the event this information is protected by the Federal Confidentiality of Alcohol and Drug AbusePatient Records regulations: The Federal rules restrict any use of the information to criminally investigate or prosecute any alcohol or drug abuse patient.[facility] Encounter Details Date Type Department Care Team (Latest Contact Info) Description 02/05/2023 Patient Msg [facility] [address] [place] [address] Provider, Ccf Radiology Pre Procedure Instructions Social [...] is lower risk 6 12/13/2022 Data from: https://www.neighborhoodatlas.medicine.[facility].edu/. Last address used for calculation [address] [place] [address] [address] 12/13/2022 Comments No Sex and [...] on filedocumented in this encounter Care Teams Radiation Oncology Nurse Relationship Specialty Start Date End Date Jayy Guzman MD [address] [place] [address] PCP - General 09/01/09 Jie Johnson, PAUL.FONDANT MACHINE OPERATOR [address] [place] [address] Nurse Practitioner Hematology/Oncology 01/16/23 Jayy Parker MD [address] [place] [address] Physician Hematology/Oncology 01/16/23 01/25/25 Roxana Wagner, RN [address] [place] [address] Specialty Lead Net Software Developer Hematology/Oncology 01/16/23 documented as of this encounter
--- OUTSIDE RECORDS SUMMARY | 2025-04-09 08:16 | XMS_ITS | Encounter Summary ---
Author Organization [facility] Address [address] [place] [address] Care Team Providers Care Account Development Executive Name Role Phone Jayy Guzman MD Primary Care Provider [phone] Zo Tavarez KELP CUTTER Unavailable Marely Seals NP Unavailable Kandace Harvey DISPLAY DEPARTMENT MANAGER Unavailable [phone] Jayy Guzman MD Unavailable [phone] Marcellus Valenzuela DO Unavailable [phone] Marcellus Valenzuela DO Primary Care Provider [phone] Marcellus Valenzuela DO Primary Care Provider [phone] Encounter Details Date Type Department Care Team (Late st Contact Info) Description 05/26/2024 [facility] [place] [facility] [address] [place] [address] Jayy Guzman MD [address] [place] [address] Social History Tobacco Use Types Packs/Day Years [...] Recorded Patient Health Questionnaire-2 Score 4 03/12/2024 [facility] [place] of Occupat ional Health - Occupational [...] [address] [place] [address] Marcellus Valenzuela DO [address] [place] [address] documented as of this encounter Visit Diagnoses Not on filedocumented in this encounter Additional Health Concerns Assessment Noted Time PHQ-9 Depression Total Score: 10 024 10:00 AM EDT documented as of this encounter Care Teams Account Development Executive Relationship Specialty Start Date End Date Guzman, Jayy A, MD [address] [place] [address] PCP - General Family Medicine 12/28/22 12/16/24 Jayy Guzman MD [address] [place] [address] PCP - Carolynn KEN 02/20/24 Marcellus Valenzuela DO [address] [place] [address] PCP - General Family Medicine 12/17/24 02/16/25 Marcellsu Valenzuela DO [address] [place] [address] PCP - General Family Medicine 02/17/25 Zo Tavarez LSW [address] [place] [address] Wardrobe Image Consultant Family Medicine 02/22/23 Marely Seals NP [address] [place] [address] Nurse Practitioner Family Medicine 10/24/23 10/21/24 Kandace Harvey NP [address] [place] [address] Nurse Practitioner Family Medicine 10/24/23 12/16/24 Marcellus Valenzuela DO [address] [place] [address] Referring Physician Family Medicine 05/29/24 02/16/25 documented as of this encounter
--- OUTSIDE RECORDS SUMMARY | 2025-04-09 08:16 | XMS_ITS | Encounter Summary ---
Author Organization [facility] Address [address] [place] [address] Care Team Providers Care Data Migration Lead Name Role Phone Jayy Guzman MD Primary Care Provider [phone] Zo Tavarez STRATEGIC DEVELOPMENT MANAGER Unavailable Marely Seals NP Unavailable Kandace Harvey RULING MACHINE FEEDER Unavailable [phone] Jayy Guzman MD Unavailable [phone] Marcellus Valenzueal DO Unavailable [phone] Marcellus Valenzuela DO Primary Care Provider [phone] Marcellus Valenzuela DO Primary Care Provider [phone] Encounter Details Date Type Department Care Team (Late st Contact Info) Description 05/26/2024 [facility] [place] [facility] [address] [place] [address] Jayy Guzman MD [address] [place] [address] Social History Tobacco Use Types Packs/Day Years [...] any clubs o r organizations such as anabaptism groups, unions, fraternal or athletic groups, or [...] Questionnaire-2 Score 4 03/12/2024 [facility] [place] of Occupat ional Health - Occupational Stress [...] [address] [place] [address] Mracellus Valenzuela DO [address] [place] [address] documented as of this encounter Visit Diagnoses Not on filedocumented in this encounter Additional Health Concerns Assessment Noted Time PHQ-9 Depression Total Score: 10 024 10:00 AM EDT documented as of this encounter Care Teams Data Migration Lead Relationship Specialty Start Date End Date Guzman, Jayy A, MD [address] [place] [address] PCP - General Family Medicine 12/28/22 12/16/24 Jayy Guzman MD [address] [place] [address] PCP - Carolynn KEN 02/20/24 Marecllus Valenzuela DO [address] [place] [address] PCP - General Family Medicine 12/17/24 02/16/25 Marcellus Valenzuela DO [address] [place] [address] PCP - General Family Medicine 02/17/25 Zo Tavarez LSW [address] [place] [address] Employee Relations Administrator Family Medicine 02/22/23 Marely Seals NP [address] [place] [address] Nurse Practitioner Family Medicine 10/24/23 10/21/24 Kandace Harvey NP [address] [place] [address] Nurse Practitioner Family Medicine 10/24/23 12/16/24 Marcellus Valenzuela DO [address] [place] [address] Referring Physician Family Medicine 05/29/24 02/16/25 documented as of this encounter
--- OUTSIDE RECORDS SUMMARY | 2025-04-09 08:17 | XMS_ITS | Encounter Summary ---
Author Organization [facility] Address [address] [place] [address] Care Team Providers Care Legal Adviser Name Role Phone Jayy Guzman MD Primary Care Provider [phone] Zo Tavarez STOCK MIXER Unavailable Marely Seals NP Unavailable Kandace Harvey NATIONAL SALES EXECUTIVE Unavailable [phone] Jayy Guzman MD Unavailable [phone] Marcellus Valenzuela DO Unavailable [phone] Marcellus Valenzuela DO Primary Care Provider [phone] Marcellus Valenzuela DO Primary Care Provider Encounter Details Date Type Department Care Team (Late st Contact Info) Description 03/25/2024 [facility] [place] [address] [place] [address] Jayy Guzman MD [address] [place] [address] Social History Tobacco Use Types Packs/Day Years [...] Recorded Patient Health Questionnaire-2 Score 4 03/12/2024 [facility] [place] of Occupat ional Health - Occupational Stress [...] [address] [place] [address] Marcellus Valenzuela DO [address] [place] [address] documented as of this encounter Visit Diagnoses Not on filedocumented in this encounter Additional Health Concerns Assessment Noted Time PHQ-9 Depression Total Score: 10 024 10:00 AM EDT documented as of this encounter Care Teams Legal Adviser Relationship Specialty Start Date End Date Guzman, Jayy A, MD [address] [place] [address] PCP - General Family Medicine 12/28/22 12/16/24 Jayy Guzman MD [address] [place] [address] PCP - Carolynn KEN 02/20/24 Marcellus Valenzuela DO [address] [place] [address] PCP - General Family Medicine 12/17/24 02/16/25 Marcellus Valenzuela DO [address] [place] [address] PCP - General Family Medicine 02/17/25 Zo Tavarez LSW [address] [place] [address] Museum Specialist Family Medicine 02/22/23 Marely Seals NP [address] [place] [address] Nurse Practitioner Family Medicine 10/24/23 10/21/24 Kandace Harvey NP [address] [place] [address] Nurse Practitioner Family Medicine 10/24/23 12/16/24 Marcellus Valenzuela DO [address] [place] [address] Referring Physician Family Medicine 05/29/24 02/16/25 documented as of this encounter
--- OUTSIDE RECORDS SUMMARY | 2025-04-09 08:17 | XMS_ITS | Encounter Summary ---
Author Organization [facility] Address [address] [place] [address] Care Team Providers Care Registered Pharmacist Name Role Phone Jayy Guzman MD Primary Care Provider [phone] Zo Tavarez VETERINARY SCIENCE TEACHER Unavailable Marely Seals NP Unavailable Kandace Harvey TICK INSPECTOR Unavailable [phone] Jayy Guzman MD Unavailable [phone] Marcellus Valenzuela DO Unavailable [phone] Marcellus Valenzuela DO Primary Care Provider [phone] Marcellus Valenzuela DO Primary Care Provider [phone] Encounter Details Date Type Department Care Team (Late st Contact Info) Description 05/26/2024 Abstract [facility] [place] [address] [place] [address] Jayy Guzman MD [address] [place] [address] Social History Tobacco Use Types Packs/Day Years [...] How often do you attend chur or pentecostal services? Patient declined 04/15/2023 Do [...] 4 03/12/2024 [facility] [place] of Occupat ional Health - Occupational Stress [...] [address] [place] [address] Marcellus Valenzuela DO [address] [place] [address] documented as of this encounter Visit Diagnoses Not on filedocumented in this encounter Additional Health Concerns Assessment Noted Time PHQ-9 Depression Total Score: 10 024 10:00 AM EDT documented as of this encounter Care Teams Registered Pharmacist Relationship Specialty Start Date End Date Guzman, Jayy A, MD [address] [place] [address] PCP - General Family Medicine 12/28/22 12/16/24 Jayy Guzman MD [address] [place] [address] PCP - Carolynn KEN 02/20/24 Marcellus Valenzuela DO [address] [place] [address] PCP - General Family Medicine 12/17/24 02/16/25 Marcellus Valenzuela DO [address] [place] [address] PCP - General Family Medicine 02/17/25 Zo Tavarez LSW [address] [place] [address] Publications Distribution Clerk Family Medicine 02/22/23 Marely Seals NP [address] [place] [address] Nurse Practitioner Family Medicine 10/24/23 10/21/24 Kandace Harvey NP [address] [place] [address] Nurse Practitioner Family Medicine 10/24/23 12/16/24 Marcellus Valenzuela DO [address] [place] [address] Referring Physician Family Medicine 05/29/24 02/16/25 documented as of this encounter
--- OUTSIDE RECORDS SUMMARY | 2025-04-09 08:17 | XMS_ITS | Encounter Summary ---
Author Organization [facility] Address [address] [place] [address] Care Team Providers Care Certified Credit Counselor Name Role Phone Jayy Guzman MD Primary Care Provider [phone] Jie Johnson APRN.CURRICULUM ASSISTANT PRINCIPAL Unavailable [phone] Jayy Parker MD Unavailable Unavail able Roxana Wagner RN Unavailable [phone] Source Comments In the event this information is protected by the Federal Confidentiality of Alcohol and Drug AbusePatient Records regulations: The Federal rules restrict any use of the information to criminally investigate or prosecute any alcohol or drug abuse patient.[facility] Encounter Details Date Type Department Care Team (Late st Contact Info) Description 07/19/2023 Patient [facility] Radiology Procedure [address] [place] [address] Provider, Ccf You are scheduled for a [...] lower risk 6 12/13/2022 Data from: https://www.neighborhoodatlas.medicine.[facility].edu/. Last address used for calculation [address] [place] [address] [address] 12/13/2022 Comments No Sex and [...] on filedocumented in this encounter Care Teams Certified Credit Counselor Relationship Specialty Start Date End Date Jayy Guzman MD [address] [place] [address] PCP - General 09/01/09 Jie Johnson, HAND CANDY CUTTER.CURRICULUM ASSISTANT PRINCIPAL [address] [place] [address] Nurse Practitioner Hematology/Oncology 01/16/23 Jayy Parker MD [address] [place] [address] Physician Hematology/Oncology 01/16/23 01/25/25 Roxana Wagner, LIU [address] [place] [address] Specialty Bread Wrapping Machine Feeder Hematology/Oncology 01/16/23 documented as of this encounter
--- OUTSIDE RECORDS SUMMARY | 2025-04-09 08:17 | XMS_ITS | Encounter Summary ---
Author Organization [facility] Address [address] [place] [address] Care Team Providers Care Notch Machine Operator Name Role Phone Jayy Guzman MD Primary Care Provider [phone] Zo Tavarez DEODORIZER OPERATOR Unavailable Marely Seals NP Unavailable Kandace Harvey COOPERAGE SHOP SUPERVISOR Unavailable [phone] Jayy Guzman MD Unavailable [phone] Marcellus Valenzuela DO Unavailable [phone] Marcellus Valenzuela DO Primary Care Provider Marcellus Valenzuela DO Primary Care Provider [phone] Encounter Details Date Type Department Care Team (Late st Contact Info) Description 05/12/2024 [facility] [place] [facility] [address] [place] [address] Jayy Guzman MD [address] [place] [address] Social History Tobacco Use Types Packs/Day Years [...] Recorded Patient Health Questionnaire-2 Score 4 03/12/2024 [facility] [place] of Occupat ional Health - Occupational Stress [...] [address] [place] [address] Marcellus Valenzuela DO [address] [place] [address] documented as of this encounter Visit Diagnoses Not on filedocumented in this encounter Additional Health Concerns Assessment Noted Time PHQ-9 Depression Total Score: 10 024 10:00 AM EDT documented as of this encounter Care Teams Notch Machine Operator Relationship Specialty Start Date End Date Guzman, Jayy A, MD [address] [place] [address] PCP - General Family Medicine 12/28/22 12/16/24 Jayy Guzman MD [address] [place] [address] PCP - Carolynn KEN 02/20/24 Marcellus Valenzuela DO [address] [place] [address] PCP - General Family Medicine 12/17/24 02/16/25 Marcellus Valenzuela DO [address] [place] [address] PCP - General Family Medicine 02/17/25 Zo Tavarez LSW [address] [place] [address] Clother In Family Medicine 02/22/23 Marely Seals NP [address] [place] [address] Nurse Practitioner Family Medicine 10/24/23 10/21/24 Kandace Harvey NP [address] [place] [address] Nurse Practitioner Family Medicine 10/24/23 12/16/24 Marcellus Valenzuela DO [address] [place] [address] Referring Physician Family Medicine 05/29/24 02/16/25 documented as of this encounter
--- OUTSIDE RECORDS SUMMARY | 2025-04-09 08:17 | XMS_ITS | Encounter Summary ---
Author Organization [facility] Address [address] [place] [address] Care Team Providers Care Hospice Team Lead Name Role Phone Jayy Guzman MD Primary Care Provider [phone] Zo Tavarez SALES EXECUTIVE Unavailable Marely Seals NP Unavailable Kandace Harvey COMMERCIAL GLAZIER Unavailable [phone] Jayy Guzman MD Unavailable [phone] Marcellus Valenzuela DO Unavailable [phone] Marcellus Valenzuela DO Primary Care Provider [phone] Marcellus Valenzuela DO Primary Care Provider [phone] Encounter Details Date Type Department Care Team (Late st Contact Info) Description 05/07/2024 [facility] [place] [address] [place] [address] Jayy Guzman MD [address] [place] [address] Social History Tobacco Use Types Packs/Day Years [...] How often do you attend chur or anglican services? Patient declined 04/15/2023 Do [...] Recorded Patient Health Questionnaire-2 Score 4 03/12/2024 [facility] [place] of Occupat ional Health - Occupational Stress [...] [address] [place] [address] Marcellus Valenzuela DO [address] [place] [address] documented as of this encounter Visit Diagnoses Not on filedocumented in this encounter Additional Health Concerns Assessment Noted Time PHQ-9 Depression Total Score: 10 024 10:00 AM EDT documented as of this encounter Care Teams Hospice Team Lead Relationship Specialty Start Date End Date Guzman, Jayy A, MD [address] [place] [address] PCP - General Family Medicine 12/28/22 12/16/24 Jayy Guzman MD [address] [place] [address] PCP - Carolynn KEN 02/20/24 Marcellus Valenzuela DO [address] [place] [address] PCP - General Family Medicine 12/17/24 02/16/25 Marcellus Valenzuela DO [address] [place] [address] PCP - General Family Medicine 02/17/25 Zo Tavarez LSW [address] [place] [address] Outside Installer Apprentice Family Medicine 02/22/23 Marely Seals NP [address] [place] [address] Nurse Practitioner Family Medicine 10/24/23 10/21/24 Kandace Harvey NP [address] [place] [address] Nurse Practitioner Family Medicine 10/24/23 12/16/24 Macrellus Valenzuela DO [address] [place] [address] Referring Physician Family Medicine 05/29/24 02/16/25 documented as of this encounter
--- OUTSIDE RECORDS SUMMARY | 2025-04-09 08:17 | XMS_ITS | Encounter Summary ---
Author Organization [facility] Address [address] [place] [address] Care Team Providers Care Lubricating Engineer Name Role Phone Jayy Guzman MD Primary Care Provider Zo Tavarez SINGE MACHINE OPERATOR Unavailable Marely Seals NP Unavailable Kandace Harvey DEPILATORY PAINTER Unavailable [phone] Jayy Guzman MD Unavailable [phone] Marcellus Valenzuela DO Unavailable [phone] Marcellus Valenzuela DO Primary Care Provider [phone] Marcellus Valenzuela DO Primary Care Provider [phone] Encounter Details Date Type Department Care Team (Late st Contact Info) Description 05/14/2024 [facility] [place] [facility] [address] [place] [address] Jayy Guzman MD [address] [place] [address] Social History Tobacco Use Types Packs/Day Years [...] Recorded Patient Health Questionnaire-2 Score 4 03/12/2024 [facility] [place] of Occupat ional Health - Occupational Stress [...] [address] [place] [address] Marcellus Valenzuela DO [address] [place] [address] documented as of this encounter Visit Diagnoses Not on filedocumented in this encounter Additional Health Concerns Assessment Noted Time PHQ-9 Depression Total Score: 10 024 10:00 AM EDT documented as of this encounter Care Teams Lubricating Engineer Relationship Specialty Start Date End Date Guzman, Jayy A, MD [address] [place] [address] PCP - General Family Medicine 12/28/22 12/16/24 Jayy Guzman MD [address] [place] [address] PCP - Carolynn KEN 02/20/24 Marcellus Valenzuela DO [address] [place] [address] PCP - General Family Medicine 12/17/24 02/16/25 Marcellus Valenzuela DO [address] [place] [address] PCP - General Family Medicine 02/17/25 Zo Tavarez LSW [address] [place] [address] Rack Puncher Family Medicine 02/22/23 Marely Seals NP [address] [place] [address] Nurse Practitioner Family Medicine 10/24/23 10/21/24 Kandace Harvey NP [address] [place] [address] Nurse Practitioner Family Medicine 10/24/23 12/16/24 Marcellus Valenzuela DO [address] [place] [address] Referring Physician Family Medicine 05/29/24 02/16/25 documented as of this encounter
--- OUTSIDE RECORDS SUMMARY | 2025-04-09 08:17 | XMS_ITS | Encounter Summary ---
Author Organization [facility] Address [address] [place] [address] Care Team Providers Care Traffic Control Operator Name Role Phone Jayy Guzman MD Primary Care Provider [phone] Zo Tavarez ENVIRONMENTAL MARKETING REPRESENTATIVE Unavailable Marely Seals NP Unavailable Kandace Harvey LINE UP MACHINE OPERATOR Unavailable [phone] Jayy Guzman MD Unavailable [phone] Marcellus Valenzuela DO Unavailable [phone] Marcellus Valenzuela DO Primary Care Provider [phone] Marcellus Valenzuela DO Primary Care Provider [phone] Encounter Details Date Type Department Care Team (Late st Contact Info) Description 05/14/2024 [facility] [place] [facility] [address] [place] [address] Jayy Guzman MD [address] [place] [address] Social History Tobacco Use Types Packs/Day Years [...] Recorded Patient Health Questionnaire-2 Score 4 03/12/2024 [facility] [place] of Occupat ional Health - Occupational Stress [...] [address] [place] [address] Marcellus Valenzuela DO [address] [place] [address] documented as of this encounter Visit Diagnoses Not on filedocumented in this encounter Additional Health Concerns Assessment Noted Time PHQ-9 Depression Total Score: 10 024 10:00 AM EDT documented as of this encounter Care Teams Traffic Control Operator Relationship Specialty Start Date End Date Guzman, Jayy A, MD [address] [place] [address] PCP - General Family Medicine 12/28/22 12/16/24 Jayy Guzman MD [address] [place] [address] PCP - Carolynn KEN 02/20/24 Marcellus Valenzuela DO [address] [place] [address] PCP - General Family Medicine 12/17/24 02/16/25 Marcellus Valenzuela DO [address] [place] [address] PCP - General Family Medicine 02/17/25 Zo Tavarez LSW [address] [place] [address] Baby Formula Worker Family Medicine 02/22/23 Marely Seals NP [address] [place] [address] Nurse Practitioner Family Medicine 10/24/23 10/21/24 Kandace Harvey NP [address] [place] [address] Nurse Practitioner Family Medicine 10/24/23 12/16/24 Marcellus Valenzuela DO [address] [place] [address] Referring Physician Family Medicine 05/29/24 02/16/25 documented as of this encounter
--- OUTSIDE RECORDS SUMMARY | 2025-04-09 08:17 | XMS_ITS | Encounter Summary ---
Author Organization [facility] Address [address] [place] [address] Care Team Providers Care Grader Green Meat Name Role Phone Jayy Guzman MD Primary Care Provider [phone] Zo Tavarez SUPERVISOR BIT AND SHANK DEPARTMENT Unavailable Marely Seals NP Unavailable Kandace Harvey SUPERVISOR PAIRING AND INSPECTING Unavailable [phone] Jayy Guzman MD Unavailable [phone] Marcellus Valenzuela DO Unavailable [phone] Marcellus Valenzuela DO Primary Care Provider [phone] Marclelus Valenzuela DO Primary Care Provider [phone] Encounter Details Date Type Department Care Team (Late st Contact Info) Description 05/12/2024 [facility] [place] [address] [place] [address] Jayy Guzman MD [address] [place] [address] Social History Tobacco Use Types Packs/Day Years [...] How often do you attend chur or sabianism services? Patient declined 04/15/2023 Do you belong [...] Recorded Patient Health Questionnaire-2 Score 4 03/12/2024 [facility] of Occupat ional Health - Occupational Stress [...] [address], [address] [place] [address] Marcellus Valenzuela DO [address] [place] [address] documented as of this encounter Visit Diagnoses Not on filedocumented in this encounter Additional Health Concerns Assessment Noted Time PHQ-9 Depression Total Score: 10 024 10:00 AM EDT documented as of this encounter Care Teams Grader Green Meat Relationship Specialty Start Date End Date Guzman, Jayy A, MD [address] [place] [address] PCP - General Family Medicine 12/28/22 12/16/24 Jayy Guzman MD [address] [place] [address] PCP - Carolynn KEN 02/20/24 Marcellus Valenzuela DO [address] [place] [address] PCP - General Family Medicine 12/17/24 02/16/25 Marcellus Valenzuela DO [address] [place] [address] PCP - General Family Medicine 02/17/25 Zo Tavarez LSW [address] [place] [address] Electric Golf Cart Repairer Family Medicine 02/22/23 Marely Seals NP [address] [place] [address] Nurse Practitioner Family Medicine 10/24/23 10/21/24 Kandace Harvey NP [address] [place] [address] Nurse Practitioner Family Medicine 10/24/23 12/16/24 Marcellus Valenzuela DO [address] [place] [address] Referring Physician Family Medicine 05/29/24 02/16/25 documented as of this encounter
--- OUTSIDE RECORDS SUMMARY | 2025-04-09 08:18 | XMS_ITS | Encounter Summary ---
Author Organization [facility] Address [address] [place] [address] Care Team Providers Care Category Development Analyst Name Role Phone Jayy Guzman MD Primary Care Provider [phone] Zo Tavarez VRT MECHANIC Unavailable Marely Seals NP Unavailable Kandace Harvey EMPLOYEE DEVELOPMENT DIRECTOR Unavailable [phone] Jayy Guzman MD Unavailable [phone] Marcellus Valenzuela DO Unavailable [phone] Marcellus Valenzuela DO Primary Care Provider [phone] Marcellus Valenzuela DO Primary Care Provider [phone] Encounter Details Date Type Department Care Team (Late st Contact Info) Description 06/09/2024 Abstract [facility] [place] [facility] [address] [place] [address] Jayy Guzman MD [address] [place] [address] Social History Tobacco Use Types Packs/Day Years [...] declined 04/15/2023 How often do you attend [facility] or denominational services? Patient declined 04/15/2023 Do [...] Recorded Patient Health Questionnaire-2 Score 0 06/04/2024 [facility] [place] of Occupat ional Health - Occupational Stress [...] [address], [address] [place] [address] Marcellus Valenzuela DO [address] [place] [address] documented as of this encounter Visit Diagnoses Not on filedocumented in this encounter Additional Health Concerns Assessment Noted Time PHQ-9 Depression Total Score: 10 024 10:00 AM EDT documented as of this encounter Care Teams Category Development Analyst Relationship Specialty Start Date End Date Guzman, Jayy A, MD [address] [place] [address] PCP - General Family Medicine 12/28/22 12/16/24 Jayy Guzman MD [address] [place] [address] PCP - Carolynn KEN 02/20/24 Marcellus Valenzuela DO [address] [place] [address] PCP - General Family Medicine 12/17/24 02/16/25 Marcellus Valenzuela DO [address] [place] [address] PCP - General Family Medicine 02/17/25 Zo Tavarez LSW [address] [place] [address] Systems Operator Family Medicine 02/22/23 Marely Seals NP [address] [place] [address] Nurse Practitioner Family Medicine 10/24/23 10/21/24 Kandace Harvey NP [address] [place] [address] Nurse Practitioner Family Medicine 10/24/23 12/16/24 Marcellus Valenzuela DO [address] [place] [address] Referring Physician Family Medicine 05/29/24 02/16/25 documented as of this encounter
--- OUTSIDE RECORDS SUMMARY | 2025-04-09 08:18 | XMS_ITS | Encounter Summary ---
Author Organization [facility] Address [address] [place] [address] Care Team Providers Care Senior Licensing Manager Name Role Phone Jayy Guzman MD Primary Care Provider [phone] Zo Tavarez RN BONE MARROW TRANSPLANT Unavailable Marely Seals NP Unavailable Kandace Harvey CARGO AND RAMP SERVICES MANAGER Unavailable [phone] Jayy Guzman MD Unavailable [phone] Marcellus Valenzuela DO Unavailable [phone] Marcellus Valenzuela DO Primary Care Provider Marcellus Valenzuela DO Primary Care Provider [phone] Encounter Details Date Type Department Care Team (Late st Contact Info) Description 05/05/2024 Abstract [facility] [place] [facility] [address] [place] [address] Jayy Guzman MD [address] [place] [address] Social History Tobacco Use Types Packs/Day Years [...] Patient Health Questionnaire-2 Score 4 03/12/2024 [facility] [place] of Occupat ional Health - [...] [address], [address] [place] [address] Marcellus Valenzuela DO [address] [place] [address] documented as of this encounter Visit Diagnoses Not on filedocumented in this encounter Additional Health Concerns Assessment Noted Time PHQ-9 Depression Total Score: 10 024 10:00 AM EDT documented as of this encounter Care Teams Senior Licensing Manager Relationship Specialty Start Date End Date Guzman, Jayy A, MD [address] [place] [address] PCP - General Family Medicine 12/28/22 12/16/24 Jayy Guzman MD [address] [place] [address] PCP - Carolynn KEN 02/20/24 Marcellus Valenzuela DO [address] [place] [address] PCP - General Family Medicine 12/17/24 02/16/25 Marcellus Valenzuela DO [address] [place] [address] PCP - General Family Medicine 02/17/25 Zo Tavarez LSW [address] [place] [address] Compliance Monitor Family Medicine 02/22/23 Marely Seals NP [address] [place] [address] Nurse Practitioner Family Medicine 10/24/23 10/21/24 Kandace Harvey NP [address] [place] [address] Nurse Practitioner Family Medicine 10/24/23 12/16/24 Marcellus Valenzuela DO [address] [place] [address] Referring Physician Family Medicine 05/29/24 02/16/25 documented as of this encounter
--- OUTSIDE RECORDS SUMMARY | 2025-04-09 08:18 | XMS_ITS | Encounter Summary ---
Author Organization [facility] Address [address] [place] [address] Care Team Providers Care Shopping Centre Manager Name Role Phone Jayy Guzman MD Primary Care Provider [phone] Zo Tavarez BREAD DOUGH MIXER Unavailable Kandace Harvey CREW LEADER GLUING Unavailable [phone] Jayy Guzman MD Unavailable [phone] Marcellus Valenzuela DO Unavailable [phone] Marcellus Valenzuela DO Primary Care Provider [phone] Marcellus Valenzuela DO Primary Care Provider [phone] Encounter Details Date Type Department Care Team (Late st Contact Info) Description 11/25/2024 Abstract [facility] [address] [place] [address] Jayy Guzman MD [address] [place] [address] Social History Tobacco Use Types Packs/Day Years [...] Recorded Patient Health Questionnaire-2 Score 2 11/09/2024 [facility] [place] of Occupat ional Health - Occupational Stress [...] [address], [address] [place] [address] Marcellus Valenzuela DO [address] [place] [address] documented as of this encounter Visit Diagnoses Not on filedocumented in this encounter Additional Health Concerns Assessment Noted Time PHQ-9 Depression Total Score: 10 024 10:00 AM EDT documented as of this encounter Care Teams Shopping Centre Manager Relationship Specialty Start Date End Date Jayy Guzman MD [address] [place] [address] PCP - General Family Medicine 12/28/22 12/16/24 Jayy Guzman MD [address] [place] [address] PCP - Carolynn KEN 02/20/24 Marcellus Valenzuela DO [address] [place] [address] PCP - General Family Medicine 12/17/24 02/16/25 Marcellus Valenzuela DO [address] [place] [address] PCP - General Family Medicine 02/17/25 Zo Tavarez LSW [address] [place] [address] Rig Welder Family Medicine 02/22/23 Kandace Harvey, CREW LEADER GLUING [address] [place] [address] Nurse Practitioner Family Medicine 10/24/23 12/16/24 Marcellus Valenzuela DO [address] [place] [address] Referring Physician Family Medicine 05/29/24 02/16/25 documented as of this encounter
--- OUTSIDE RECORDS SUMMARY | 2025-04-09 08:18 | XMS_ITS | Encounter Summary ---
Author Organization [facility] Address [address] [place] [address] Care Team Providers Care Generating Plant Superintendent Name Role Phone Jayy Guzman MD Primary Care Provider [phone] Zo Tavarez BACK PAD INSPECTOR Unavailable Kandace Harvey CONFERENCE CONCIERGE Unavailable [phone] Jayy Guzman MD Unavailable [phone] Marcellus Valenzuela DO Unavailable [phone] Marcellus Valenzuela DO Primary Care Provider [phone] Marcellus Valenzuela DO Primary Care Provider [phone] Encounter Details Date Type Department Care Team (Late st Contact Info) Description 11/09/2024 Abstract [facility] [address] [place] [address] Jayy Guzman MD [address] [place] [address] Social History Tobacco Use Types Packs/Day Years [...] How often do you attend chur or congregation services? Patient declined 04/15/2023 Do [...] Patient Health Questionnaire-2 Score 2 11/09/2024 [facility] [place] of Occupat ional Health - Occupational Stress [...] Description 04/27/2025 1:20 PM EDT [facility] [address], [facility] [address] [place] [address] Marcellus Valenzuela DO [address] [facility] [address] [place] [address] documented as of this encounter Visit Diagnoses Not on filedocumented in this encounter Additional Health Concerns Assessment Noted Time PHQ-9 Depression Total Score: 10 024 10:00 AM EDT documented as of this encounter Care Teams Generating Plant Superintendent Relationship Specialty Start Date End Date Jayy Guzman MD [address] [place] [address] PCP - General Family Medicine 12/28/22 12/16/24 Jayy Guzman MD [address] [place] [address] PCP - Carolynn KEN 02/20/24 Marcellus Valenzuela DO [address] [place] [address] PCP - General Family Medicine 12/17/24 02/16/25 Marcellus Valenzuela DO [address] [place] [address] PCP - General Family Medicine 02/17/25 Zo Tavarez, PEDRO [address] [place] [address] Concrete Tile Machine Operator Family Medicine 02/22/23 Kandace Harvey NP [address] [place] [address] Nurse Practitioner Family Medicine 10/24/23 12/16/24 Marcellus Valenzuela DO [address] [place] [address] Referring Physician Family Medicine 05/29/24 02/16/25 documented as of this encounter
--- OUTSIDE RECORDS SUMMARY | 2025-04-09 08:18 | XMS_ITS | Clinical Summary ---
Author Organization [facility] Address [address] [place] [address] Phone Care Team Providers Care Wellness Nurse Name Role Phone Jayy Guzman MD [...] Advance Directives For more information, please contact: [phone] (Available ) Documents on File Type Date Recorded Patient Shells Inspector Expl anation Healthcare Power of Atty 07/21/2021 Living Will 07/21/2021 Care Teams Wellness Nurse Relationship Specialty Start Date End Date Jayy Guzman MD [address] [place] [address] PCP - General 03/01/15
--- OUTSIDE RECORDS SUMMARY | 2025-04-09 08:18 | XMS_ITS | Encounter Summary ---
Author Organization [facility] Address [address] [place] [address] Care Team Providers Care Chief Petroleum Engineer Name Role Phone Jayy Guzman MD Primary Care Provider [phone] Zo Tavarez INTERACTIVE PRODUCER Unavailable Marely Seals NP Unavailable Kandace Harvey ENGINEER OF SYSTEM DEVELOPMENT Unavailable [phone] Jayy Guzman MD Unavailable [phone] Marcellus Valenzuela DO Unavailable [phone] Marcellus Valenzuela DO Primary Care Provider [phone] Marcellus Valenzuela DO Primary Care Provider [phone] Encounter Details Date Type Department Care Team (Late st Contact Info) Description 05/05/2024 Abstract [facility] [place] [facility] [address] [place] [address] Jayy Guzman MD [address] [place] [address] Social History Tobacco Use Types Packs/Day Years [...] How often do you attend chur or baptist services? Patient declined 04/15/2023 Do [...] Recorded Patient Health Questionnaire-2 Score 4 03/12/2024 [facility] [place] of Occupat ional Health - Occupational Stress [...] [address], [address] [place] [address] Marcellus Valenzuela DO [address] [place] [address] documented as of this encounter Visit Diagnoses Not on filedocumented in this encounter Additional Health Concerns Assessment Noted Time PHQ-9 Depression Total Score: 10 024 10:00 AM EDT documented as of this encounter Care Teams Chief Petroleum Engineer Relationship Specialty Start Date End Date Guzman, Jayy A, MD [address] [place] [address] PCP - General Family Medicine 12/28/22 12/16/24 Jayy Guzman MD [address] [place] [address] PCP - Carolynn KEN 02/20/24 Marcellus Valenzuela DO [address] [place] [address] PCP - General Family Medicine 12/17/24 02/16/25 Marcellus Valenzuela DO [address] [place] [address] PCP - General Family Medicine 02/17/25 Zo Tavarez LSW [address] [place] [address] Contact Lens Fitter Family Medicine 02/22/23 Marely Seals NP [address] [place] [address] Nurse Practitioner Family Medicine 10/24/23 10/21/24 Kandace Harvey NP [address] [place] [address] Nurse Practitioner Family Medicine 10/24/23 12/16/24 Marcellus Valenzuela DO [address] [place] [address] Referring Physician Family Medicine 05/29/24 02/16/25 documented as of this encounter
--- OUTSIDE RECORDS SUMMARY | 2025-04-09 08:18 | XMS_ITS | Encounter Summary ---
Author Organization [facility] Address [address] [place] [address] Care Team Providers Care Distribution Analyst Name Role Phone Jayy Guzman MD Primary Care Provider [phone] Jayy Guzman MD Unavailable [phone] Zo Tavarez SHIPPER AND RECEIVING Unavailable Marely Seals NP Unavailable Kandace Harvey MEASUREMENT AND VERIFICATION ENGINEER Unavailable [phone] Jayy Guzman MD Unavailable [phone] Marcellus Valenzuela DO Unavailable [phone] Marcellus Valenzuela DO Primary Care Provider Marcellus Valenzuela DO Primary Care Provider Encounter Details Date Type Department Care Team (Late st Contact Info) Description 10/01/2016 Abstract [facility] [address] [place] [address] Aniya Eaton, [facility] [address] [place] [address] Social History Tobacco Use Types Packs/Day Years [...] 1:20 PM EDT Office Visit [facility] [facility] [address], [address] [place] [address] Marcellus Valenzuela DO [address] [place] [address] documented as of this encounter Visit Diagnoses Not on filedocumented in this encounter Care Teams Distribution Analyst Relationship Specialty Start Date End Date Jayy Guzman MD [address] [place] [address] PCP - General Family Medicine 12/28/22 12/16/24 Jayy Guzman MD [address] [place] [address] PCP - Carolynn KEN 01/19/23 06/20/23 Jayy Guzman MD [address] [place] [address] PCP - Carolynn KEN 02/20/24 Marcellus Valenzuela DO [address] [place] [address] PCP - General Family Medicine 12/17/24 02/16/25 Marcellus Valenzuela DO [address] [facility] [address] [place] [address] PCP - General Family Medicine 02/17/25 Zo Tavarez LSW [address] [place] [address] Therapist Speech Family Medicine 02/22/23 Mareyl Seals NP [address] [place] [address] Nurse Practitioner Family Medicine 10/24/23 10/21/24 Kandace Harvey NP [address] [place] [address] Nurse Practitioner Family Medicine 10/24/23 12/16/24 Marcellus Valenzuela DO [address] [place] [address] Referring Physician Family Medicine 05/29/24 02/16/25 documented as of this encounter
--- OUTSIDE RECORDS SUMMARY | 2025-04-09 08:18 | XMS_ITS | Encounter Summary ---
Author Organization [facility] Address [address] [place] [address] Care Team Providers Care Web Press Operator Assistant Name Role Phone DaysiZo PEDRO Unavailable Jayy Guzman MD Unavailable [phone] Marcellus Valenzuela DO Unavailable [phone] Marcellus Valenzuela DO Primary Care Provider [phone] Marcellus Valenzuela DO Primary Care Provider [phone] Encounter Details Date Type Department Care Team (Late st Contact Info) Description 02/16/2025 Abstract [facility] [address] [facility] 340 [place] [address] Marcellus Valenzuela DO [address] [facility] [address] [place] [address] Social History Tobacco Use Types Packs/Day Years [...] Recorded Patient Health Questionnaire-2 Score 0 12/24/2024 [facility] of Occupat ional Health - [...] a fci (including now)? No 04/15/2023 Comments No Sex [...] PM EDT Office Visit [facility] [place] [facility] [address], [facility] 340 [place] [address] Marcellus Valenzuela DO [address] [place] [address] documented as of this encounter Visit Diagnoses Not on filedocumented in this encounter Additional Health Concerns Assessment Noted Time PHQ-9 Depression Total Score: 10 024 10:00 AM EDT documented as of this encounter Care Teams Web Press Operator Assistant Relationship Specialty Start Date End Date Jayy Guzman MD [address] [place] [address] PCP - Carolynn KEN 02/20/24 Marcellus Valenzuela DO [address] [place] [address] PCP - General Family Medicine 12/17/24 02/16/25 Marcellus Valenzuela DO [address] [place] [address] PCP - General Family Medicine 02/17/25 Zo Tavarez LSW [address] [place] [address] Senior Quality Assurance Analyst Family Medicine 02/22/23 Marcellus Valenzuela DO [address] [place] [address] Referring Physician Family Medicine 05/29/24 02/16/25 documented as of this encounter
--- OUTSIDE RECORDS SUMMARY | 2025-04-09 08:18 | XMS_ITS | Encounter Summary ---
Author Organization [facility] Address [address] [place] [address] Care Team Providers Care Credit Reporter Name Role Phone DaysiZo PEDRO Unavailable Jayy Guzman MD Unavailable [phone] Marcellus Valenzuela DO Primary Care Provider [phone] Encounter Details Date Type Department Care Team (Late st Contact Info) Description 02/23/2025 Abstract [facility] [address], [address] [place] [address] Marcellus Valenzuela DO [address] [facility] [address] [place] [address] Social History Tobacco Use Types Packs/Day Years [...] often do you attend chur ch or gnosticism services? Patient declined 04/15/2023 Do [...] Recorded Patient Health Questionnaire-2 Score 2 02/23/20[facility] - Occupational Stress Questionnaire Answer Date Recorded [...] 1:20 PM EDT Office Visit [facility] [place] [facility] [address], [address] [place] [address] Marcellus Valenzuela, [address] [place] [address] documented as of this encounter Visit Diagnoses Not on filedocumented in this encounter Additional Health Concerns Assessment Noted Time PHQ-9 Depression Total Score: 16 025 1:37 PM EDT documented as of this encounter Care Teams Credit Reporter Relationship Specialty Start Date End Date Jayy Guzman MD [address] [place] [address] PCP - Carolynn KEN 02/20/24 Marcellus Valenzuela DO [address] [place] [address] [place] [address] PCP - General Family Medicine 02/17/25 Zo Tavarez [place]SW [address] [place] [address] Advisory Internship Family Medicine 02/22/23 documented as of this encounter
--- OUTSIDE RECORDS SUMMARY | 2025-04-09 08:18 | XMS_ITS | Encounter Summary ---
Author Organization [facility] Address [address] [place] [address] Care Team Providers Care Baker Bench Name Role Phone Jayy Guzman MD Primary Care Provider [phone] Zo Tavarez SUSTAINABILITY OFFICER Unavailable Marely Seals NP Unavailable Kandace Harvey [employer] Unavailable [phone] Jayy Guzman MD Unavailable [phone] Marcellus Valenzuela DO Unavailable [phone] Marcellus Valenzuela DO Primary Care Provider [phone] Marcellus Valenzuela DO Primary Care Provider [phone] Encounter Details Date Type Department Care Team (Late st Contact Info) Description 06/21/2024 [facility] [place] [facility] [address] [place] [address] Jayy Guzman MD [address] [place] [address] Social History Tobacco Use Types Packs/Day Years [...] declined 04/15/2023 How often do you attend up health system or restorationism services? Patient declined 04/15/2023 Do [...] Recorded Patient Health Questionnaire-2 Score 0 06/04/2024 [facility] [place] of Occupat ional Health - Occupational Stress [...] [address] [place] [address] Marcellus Valenzuela DO [address] [place] [address] documented as of this encounter Visit Diagnoses Not on filedocumented in this encounter Additional Health Concerns Assessment Noted Time PHQ-9 Depression Total Score: 10 024 10:00 AM EDT documented as of this encounter Care Teams Baker Bench Relationship Specialty Start Date End Date Guzman, Jayy A, MD [address] [place] [address] PCP - General Family Medicine 12/28/22 12/16/24 Jayy Guzman MD [address] [place] [address] PCP - Carolynn KEN 02/20/24 Marcellus Valenzuela DO [address] [place] [address] PCP - General Family Medicine 12/17/24 02/16/25 Marcellus Valenzuela DO [address] [place] [address] PCP - General Family Medicine 02/17/25 Zo Tavarez LSW [address] [place] [address] Membership Sales Representative Family Medicine 02/22/23 Marely Seals NP [address] [place] [address] Nurse Practitioner Family Medicine 10/24/23 10/21/24 Kandace Harvey NP [address] [place] [address] Nurse Practitioner Family Medicine 10/24/23 12/16/24 Marcellus Valenzuela DO [address] [place] [address] Referring Physician Family Medicine 05/29/24 02/16/25 documented as of this encounter
--- OUTSIDE RECORDS SUMMARY | 2025-04-09 08:18 | XMS_ITS | Clinical Summary ---
Author Organization [facility] Address [address] [place] [address] Care Team Providers Care Traffic Operator Name Role Phone Jayy Guzman MD Primary Care Provider [phone] Jie Johnsno APRN.MANAGER UTILITIES Unavailable [phone] Roxana Wagner RN Unavailable [phone] Allergies Active Allergy Reactions Criticality Noted [...] carotid endarterectomy 12/21/2022 Smoker 12/21/2022 Atherosclerosis of [place] co ronary artery of [place] heart without angina pectoris 12/21/2022 NASIR (obstructive [...] 6 12/13/2022 Data from: https://www.neighborhoodatlas.medicine.[facility].edu/. Last address used for calculation [address] [place] [address] [address] 12/13/2022 Comments No Sex and [...] Completed 03/31/2001 Medical Devices Implanted Type Area Director Child Device Identifier Shelf Expiration Date Model / [...] COMPREHENSIVE METABOLIC PANEL (05/05/2024 12:39 PM EDT) [facility] Protein, Total 6.0(L) 6.3 - 8.0 g/dL 05/05/2024 1:16 PM EDT [facility] Albumin 3.8(L) 3.9 - 4.9 g/dL 05/05/2024 1:16 PM EDT [facility] Calcium, Total 8.7 8.5 - 10.2 mg/dL 05/05/2024 1:16 PM EDT [facility] Bilirubin, Total 0.5 0.2 - 1.3 mg/dL 05/05/2024 1:16 PM EDT [facility] Alkaline Phosphatase 76 34 - 123 U/L 05/05/2024 1:16 PM EDT [facility] AST 16 13 - 35 U/L 05/05/2024 1:16 PM EDT [facility] ALT 19 7 - 38 U/L 05/05/2024 1:16 PM EDT [facility] Glucose 87 74 - 99 mg/dL 05/05/2024 1:16 PM EDT [facility] Comment: The [place] Diabetes Association (ADA) provides guidance for cutoff [...] Standards of Medical Care in Diabetes 2016, [place] Diabetes Association. Diabetes Care. 2016.39(Suppl 1). BUN 44(H) 7 - 21 mg/dL 05/05/2024 1:16 PM EDT [facility] Creatinine 1.50(H) 0.58 - 0.96 mg/dL 05/05/2024 1:16 PM EDT [facility] Sodium 143 136 - 144 mmol/L 05/05/2024 1:16 PM EDT [facility] Potassium 4.0 3.7 - 5.1 mmol/L 05/05/2024 1:16 PM EDT [facility] Chloride 103 98 - 107 mmol/L 05/05/2024 1:16 PM EDT [facility] CO2 32(H) 22 - 30 mmol/L 05/05/2024 1:16 PM EDT [facility] Anion Gap 8 8 - 15 mmol/L 05/05/2024 1:16 PM EDT [facility] Estimated Glomerular Filtration Rate 37(L) >=60 mL/min/1. 73m 05/05/2024 1:16 PM EDT [facility] Comment:Estimated Glomerular Filtration Rate (eGFR) [...] us Mehnaz Browning PA-C LABORATORY Final Result [facility] [address] [place] [address] * (ABNORMAL) HEP REMOTE PANEL BL (03/31/2001 3:23 PM EDT) Hep B Core Ab, Total Negative NEG [facility] Hep C Antibody IA Negative NEG CL [facility] HBsAg Negative NEG [facility] Hep B Surface Ab, Qual Positive(A) NEG [facility] Comment: A positive Hepatitis B Surface Antibody or a result of > or = 10 mIU/mL implies immunity to HBV. For additional information and guidelines see MMWR 1990,39(RR-2) 1-23, August 30, 1989. Interpretation (Hep Remote Pnl) These results are consistent with previous exposure and immunity to the [facility] Comment:hepatitis B virus an tigen, as seen for example secondary to vaccination. 03/31/2001 3:23 PM EDT us Martinez Hayes Jr., MD LABORATORY Final Res ult [facility] [address] [place] [address] from Last 3 Months or Most Recently Relevant to Health Maintenance Insurance [employer] PPO Care Teams Traffic Operator Relationship Specialty Start Date End Date Jayy Guzman MD [address] [place] [address] PCP - General 09/01/09 Jie Johnson APRN.MANAGER UTILITIES [address] [place] [address] Nurse Practitioner Hematology/Oncology 01/16/23 Roxana Wagner RN [address] [place] [address] Specialty Dredge Lever Operator Hematology/Oncology 01/16/23
--- OUTSIDE RECORDS SUMMARY | 2025-04-09 08:18 | XMS_ITS | Encounter Summary ---
Author Organization [facility] Address [address] [place] [address] Care Team Providers Care Head Of Mathematics Name Role Phone DaysiZo PEDRO Unavailable Jayy Guzman MD Unavailable [phone] Marcellus Valenzuela DO Unavailable [phone] Marcellus Valenzuela DO Primary Care Provider Marcellus Valenzuela DO Primary Care Provider [phone] Encounter Details Date Type Department Care Team (Late st Contact Info) Description 02/04/2025 Abstract [facility] [address] [facility] , [facility] [address] [place] [phone] Marcellus Valenzuela DO [address] [facility] [address] [place] [address] Social History Tobacco Use Types Packs/Day Years [...] Recorded Patient Health Questionnaire-2 Score 0 12/24/2024 [facility] of Occupat ional Health - [...] PM EDT Office Visit [facility] [place] [facility] [address], [facility] 340 [place] [address] Marcellus Valenzuela DO [address] [place] [address] documented as of this encounter Visit Diagnoses Not on filedocumented in this encounter Additional Health Concerns Assessment Noted Time PHQ-9 Depression Total Score: 10 024 10:00 AM EDT documented as of this encounter Care Teams Head Of Mathematics Relationship Specialty Start Date End Date Jayy Guzman MD [address] [place] [address] PCP - Carolynn KEN 02/20/24 Marcellus Valenzuela DO [address] [place] [address] PCP - General Family Medicine 12/17/24 02/16/25 Marceluls Valenzuela DO [address] [place] [address] PCP - General Family Medicine 02/17/25 Zo Tavarez LSW [address] [place] [address] Management Manager Family Medicine 02/22/23 Marcellus Valenzuela DO [address] [place] [address] Referring Physician Family Medicine 05/29/24 02/16/25 documented as of this encounter
--- OUTSIDE RECORDS SUMMARY | 2025-04-09 08:18 | XMS_ITS | Encounter Summary ---
Author Organization [facility] Address [address] [place] [address] Care Team Providers Care Student Life Vice President Name Role Phone Jayy Gzuman MD Primary Care Provider [phone] Zo Tavarez BOOKING POLICE OFFICER Unavailable Marely Seals NP Unavailable Kandace Harvey MANAGER EPIC Unavailable [phone] Jayy Guzman MD Unavailable [phone] Marcellus Valenzuela DO Unavailable [phone] Marcellus Valenzuela DO Primary Care Provider [phone] Marcellus Valenzuela DO Primary Care Provider [phone] Encounter Details Date Type Department Care Team (Late st Contact Info) Description 06/09/2024 Abstract [facility] [place] [address] [place] [phone] Jayy Guzman MD [address] [place] [address] Social History Tobacco Use Types Packs/Day Years [...] declined 04/15/2023 How often do you attend [facility] or methodist services? Patient declined 04/15/2023 Do you belong [...] Questionnaire-2 Score 0 06/04/2024 [facility] of Occupat ional Health - Occupational Stress [...] [address], [address] [place] [address] Marcellus Valenzuela DO [address] [place] [address] documented as of this encounter Visit Diagnoses Not on filedocumented in this encounter Additional Health Concerns Assessment Noted Time PHQ-9 Depression Total Score: 10 024 10:00 AM EDT documented as of this encounter Care Teams Student Life Vice President Relationship Specialty Start Date End Date Guzman, Jayy A, MD [address] [place] [address] PCP - General Family Medicine 12/28/22 12/16/24 Jayy Guzman MD [address] [place] [address] PCP - Carolynn KEN 02/20/24 Marcellus Valenzuela DO [address] [place] [address] PCP - General Family Medicine 12/17/24 02/16/25 Marcellus Valenzuela DO [address] [place] [address] PCP - General Family Medicine 02/17/25 Zo Tavarez LSW [address] [place] [address] Armored Car Guard And Driver Family Medicine 02/22/23 Marely Seals NP [address] [place] [address] Nurse Practitioner Family Medicine 10/24/23 10/21/24 Kandace Harvey NP [address] [place] [address] Nurse Practitioner Family Medicine 10/24/23 12/16/24 Marcellus Valenzuela DO [address] [place] [address] Referring Physician Family Medicine 05/29/24 02/16/25 documented as of this encounter
--- OUTSIDE RECORDS SUMMARY | 2025-04-09 08:18 | XMS_ITS | Encounter Summary ---
Author Organization [facility] Address [address] [place] [address] Phone Care Team Providers Care Tank Cleaner Name Role Phone Jayy Guzman MD Primary Care Provider [phone] Encounter Details Date Type Department Care Team (Late st Contact Info) Description 05/28/2024 Scanned Document [facility] [address] [place] [address] Scanning, Generic Provider Social History Tobacco Use [...] on filedocumented in this encounter Care Teams Tank Cleaner Relationship Specialty Start Date End Date Jayy Guzman MD [address] [place] [address] PCP - General 03/01/15 documented as of this encounter
--- OUTSIDE RECORDS SUMMARY | 2025-04-09 08:18 | XMS_ITS | Encounter Summary ---
Author Organization [facility] Address [address] [place] [address] Care Team Providers Care Shoe Trimmer Name Role Phone DaysiZo PEDRO Unavailable Jayy Guzman MD Unavailable [phone] Marcellus Valenzuela DO Unavailable [phone] Marcellus Valenzuela DO Primary Care Provider [phone] Marcellus Valenzuela DO Primary Care Provider [phone] Encounter Details Date Type Department Care Team (Late st Contact Info) Description 02/08/2025 Abstract [facility] [address] [facility] , [facility] [address] [place] [address] Marcellus Valenzuela DO [address] [facility] [address] [place] [address] Social History Tobacco Use Types Packs/Day Years [...] Recorded Patient Health Questionnaire-2 Score 0 12/24/2024 [facility] of Occupat ional Health - Occupational Stress [...] PM EDT Office Visit [facility] [place] [facility] [address], [facility] [address] [place] [address] Marcellus Valenzuela DO [address] [place] [address] documented as of this encounter Visit Diagnoses Not on filedocumented in this encounter Additional Health Concerns Assessment Noted Time PHQ-9 Depression Total Score: 10 024 10:00 AM EDT documented as of this encounter Care Teams Shoe Trimmer Relationship Specialty Start Date End Date Jayy Guzman MD [address] [place] [address] PCP - Carolynn KEN 02/20/24 Marcellus Valenzuela DO [address] [place] [address] PCP - General Family Medicine 12/17/24 02/16/25 Marcellus Valenzuela DO [address] [place] [address] PCP - General Family Medicine 02/17/25 Zo Tavarez LSW [address] [place] [address] Wind Energy Project Manager Family Medicine 02/22/23 Marcellus Valenzuela DO [address] [place] [address] Referring Physician Family Medicine 05/29/24 02/16/25 documented as of this encounter
--- OUTSIDE RECORDS SUMMARY | 2025-04-09 08:18 | XMS_ITS | Encounter Summary ---
Author Organization [facility] Address [address] [place] [address] Care Team Providers Care Telecommunications Field Engineer Name Role Phone Jayy uGzman MD Primary Care Provider Zo Tavarez PLUMBER ASSISTANT Unavailable Marely Seals NP Unavailable Kandace Harvey DIVING INSTRUCTOR Unavailable [phone] Jayy Guzman MD Unavailable [phone] Marcellus Valenzuela DO Unavailable [phone] Marcellus Valenzuela DO Primary Care Provider [phone] Marcellus Valenzuela DO Primary Care Provider [phone] Encounter Details Date Type Department Care Team [...] you attend [facility] or confucianist services? Patient declined 04/15/2023 Do [...] Recorded Patient Health Questionnaire-2 Score 4 03/12/2024 [facility] of Occupat ional Health - Occupational [...] 1:20 PM EDT Office Visit [facility] [address], [place] [place] [address] Marcellus Valenzuela DO [address] [place] [address] documented as of this encounter Procedures Procedure [...] any questions regarding this interpretation, please call [phone]. If you are unable to reach us at the number above, please feel free to contact [facility] at [phone]. [id number]^[email or web address] Procedure Note Radiology, Radiologist, - 04/23/2024 * [...] any questions regarding this interpretation, please call [phone]. If you are unable to reach us at the number above, please feel free to contact [facility] at [phone]. [id number]^[email or web address]^ACN us Generic External Data Provider [facility] Final Result documented in this encounter Visit Diagnoses Not on filedocumented in this encounter Additional Health Concerns Assessment Noted Time PHQ-9 Depression Total Score: 10 024 10:00 AM EDT documented as of this encounter Care Teams Telecommunications Field Engineer Relationship Specialty Start Date End Date Jayy Guzman MD [address] [place] [address] PCP - General Family Medicine 12/28/22 12/16/24 Jayy Guzman MD [address] [place] [address] PCP - Carolynn KEN 02/20/24 Marcellus Valenzuela DO [address] [place] [address] PCP - General Family Medicine 12/17/24 02/16/25 Marcellus Valenzuela DO [address] [place] [address] PCP - General Family Medicine 02/17/25 Zo Tavarez LSW [address] [place] [address] Industrial Designer Family Medicine 02/22/23 Marely Seals NP [address] [place] [address] Nurse Practitioner Family Medicine 10/24/23 10/21/24 Kandace Harvey NP [address] [place] [address] Nurse Practitioner Family Medicine 10/24/23 12/16/24 Marcellus Valenzuela DO [address] [place] [address] Referring Physician Family Medicine 05/29/24 02/16/25 documented as of this encounter
--- OUTSIDE RECORDS SUMMARY | 2025-04-09 08:18 | XMS_ITS | Encounter Summary ---
Author Organization [facility] Address [address] [place] [address] Care Team Providers Care Fire Department Battalion Chief Name Role Phone Zo Tavarez Unavailable Jayy Guzman MD Unavailable [phone] Marcellus Valenzuela DO Primary Care Provider [phone] Encounter Details Date Type Department Care Team (Late st Contact Info) Description 04/06/2025 Patient Outreach [facility] [address] [place] [address] Zo Tavarez LSW [address] [place] [address] Social History Tobacco Use Types Packs/Day Years [...] Recorded Patient Health Questionnaire-2 Score 2 02/23/2025 [facility] of Occupat ional Health - Occupational [...] encounter Progress Notes * PEDRO Ramires - 04/06/2025 2:13 PM EDT Contacted pt for monthly monitor and she states she is currently driving right so cannot talk. Thisis the first time she is driving since her spouse a few months ago. She has dialysis MWF but states she will call me back. Will await CB. <April 07, 2025, 13:41 - PEDRO Ramires> No call back, closing encounter. documented in this encounter Plan of Treatment Upcoming Encounters Date Type Department Care Team (Late st Contact Info) Description 04/27/2025 1:20 PM EDT Office Visit [facility] [place] [facility] [address], [place] [place] [address] Marcellus Valenzuela DO [address] [place] [address] documented as of this encounter Visit Diagnoses Diagnosis Essential (primary) hypertension- Primary Unspecified essential hypertension Stage 3 chronic kidney disease, unspecified whether stage 3a or 3b CKD ([facility]) documented in this encounter Additional Health Concerns Assessment Noted Time PHQ-9 Depression Total Score: 16 025 1:37 PM EDT documented as of this encounter Care Teams Fire Department Battalion Chief Relationship Specialty Start Date End Date Jayy Guzman MD [address] [place] [address] PCP - Carolynn KEN 02/20/24 Marcellus Valenzuela DO [address] [place] [address] [place] [address] PCP - General Family Medicine 02/17/25 Zo Tavarez LSW [address] [place] [address] Mill Laborer Family Medicine 02/22/23 documented as of this encounter
--- OUTSIDE RECORDS SUMMARY | 2025-04-09 08:18 | XMS_ITS | Encounter Summary ---
Author Organization [facility] Address [address] [place] [address] Care Team Providers Care Turpentiner Name Role Phone Jayy Guzman MD Primary Care Provider Zo Tavarez CHEMICAL RESEARCH WORKER Unavailable Marely Seals NP Unavailable Kandace Harvey SQL PROGRAMMER ANALYST Unavailable [phone] Jayy Guzman MD Unavailable [phone] Marcellus Valenzuela DO Unavailable [phone] Marcellus Valenzuela DO Primary Care Provider [phone] Marcellus Valenzuela DO Primary Care Provider [phone] Encounter Details Date Type Department Care Team (Late st Contact Info) Description 09/15/2024 Abstract [facility] [address] [place] [address] Jayy Guzman MD [address] [place] [address] Social History Tobacco Use Types Packs/Day Years [...] How often do you attend chur or mu-ism services? Patient declined 04/15/2023 Do you belong [...] Recorded Patient Health Questionnaire-2 Score 0 07/29/2024 [facility] of Occupat ional Health - Occupational Stress [...] [address], [address] [place] [address] Marcellus Valenzuela DO [address] [place] [address] documented as of this encounter Visit Diagnoses Not on filedocumented in this encounter Additional Health Concerns Assessment Noted Time PHQ-9 Depression Total Score: 10 024 10:00 AM EDT documented as of this encounter Care Teams Turpentiner Relationship Specialty Start Date End Date Guzman, Jayy A, MD [address] [place] [address] PCP - General Family Medicine 12/28/22 12/16/24 Jayy Guzman MD [address] [place] [address] PCP - Carolynn KEN 02/20/24 Marcellus Valenzuela DO [address] [place] [address] PCP - General Family Medicine 12/17/24 02/16/25 Marcellus Valenzuela DO [address] [place] [address] PCP - General Family Medicine 02/17/25 Zo Tavarez LSW [address] [place] [address] Loader Magazine Grinder Family Medicine 02/22/23 Marely Seals NP [address] [place] [address] Nurse Practitioner Family Medicine 10/24/23 10/21/24 Kandace Harvey NP [address] [place] [address] Nurse Practitioner Family Medicine 10/24/23 12/16/24 Marcellus Valenzuela DO [address] [place] [address] Referring Physician Family Medicine 05/29/24 02/16/25 documented as of this encounter
--- OUTSIDE RECORDS SUMMARY | 2025-04-09 08:18 | XMS_ITS | Encounter Summary ---
Author Organization [facility] Address [address] [place] [address] Care Team Providers Care Senior Application Security Consultant Name Role Phone DaysiBretthadley VASQUEZ Unavailable Jayy Guzman MD Unavailable [phone] Marcellus Valenzuela DO Primary Care Provider Encounter Details Date Type Department Care Team (Late st Contact Info) Description 03/29/2025 Clinis[facility] Result Encounter [facility] External Department Unsolicited [...] often do you attend chur ch or catholic services? Patient declined 04/15/2023 Do [...] Recorded Patient Health Questionnaire-2 Score 2 02/23/2025 [facility] - Occupational Stress Questionnaire Answer Date [...] 1:20 PM EDT Office Visit [facility] [place] [facility] [address], [address] [place] [address] Marcellus Valenzuela DO [address] [place] [address] documented as of this encounter Procedures Procedure Name Priority Date/Time Associated Diagnosis Comments ALL POTASSIUM Routine 03/29/2025 7:18 AM EDT documented in this encounter Results * (ABNORMAL) ALL POTASSIUM (03/29/2025 7:18 AM EDT) POTASSIUM 5.6(H) 3.5 - 5.1 mmol/L TBH 03/29/2025 7:18 AM EDT 03/29/2025 8:06 AM EDT Narrative [facility] - 03/29/2025 8:24 AM EDT [facility] us Generic External Data Provider [facility] F inal Result [facility] documented in this encounter Visit Diagnoses Not on filedocumented in this encounter Additional Health Concerns Assessment Noted Time PHQ-9 Depression Total Score: 16 025 1:37 PM EDT documented as of this encounter Care Teams Senior Application Security Consultant Relationship Specialty Start Date End Date Jayy Guzman MD [address] [place] [address] PCP - Carolynn KEN 02/20/24 Marcellus Valenzuela DO [address] [place] [address] PCP - General Family Medicine 02/17/25 Zo Tavarez LSW [address] [place] [address] Public Works Supervisor Family Medicine 02/22/23 documented as of this encounter
--- OUTSIDE RECORDS SUMMARY | 2025-04-09 08:18 | XMS_ITS ---
Author Organization [facility] Address [address] [place] [address] Care Team Providers Care Facility Examiner Name Role Phone Zo Tavarez Unavailable Jayy Guzman MD Unavailable Marcellus Valenzuela DO Primary Care Provider Chronic Care Management (CCM) Status:Enrolled (Active) Start date:02/22/2023 Enrollment date:02/22/2023 Enrollment reason:Identified as high-risk Overview Addresses patients in need of care management services. 02/22/23, 3:00 PM - PEDRO Ramires- Patient gives verbal consent to be enrolled in CCM Program. Case Team Name Relationship Phone Zo VASQUEZ(Responsible Staff) Pawn Shop Keeper [phone] Continued Care and Services Coordination
--- OUTSIDE RECORDS SUMMARY | 2025-04-09 08:18 | XMS_ITS | Encounter Summary ---
Author Organization [facility] Address [address] [place] [address] Care Team Providers Care Assistant Director Name Role Phone Jayy Guzman MD Primary Care Provider [phone] Zo Tavarez [employer] Unavailable Kandace Harvey MATTRESS FILLER Unavailable [phone] Jayy Guzman MD Unavailable [phone] Marcellus Valenzuela DO Unavailable [phone] Marcellus Valenzuela DO Primary Care Provider [phone] Marcellus Valenzuela DO Primary Care Provider [phone] Encounter Details Date Type Department Care Team (Late st Contact Info) Description 11/04/2024 Abstract [facility] [address] [place] [address] Jayy Guzman MD [address] [place] [address] Social History Tobacco Use Types Packs/Day Years [...] Recorded Patient Health Questionnaire-2 Score 0 10/26/2024 [facility] [place] of Occupat ional Health - Occupational Stress [...] [address], [address] [place] [address] Marcellus Valenzuela DO [address] [place] [address] documented as of this encounter Visit Diagnoses Not on filedocumented in this encounter Additional Health Concerns Assessment Noted Time PHQ-9 Depression Total Score: 10 024 10:00 AM EDT documented as of this encounter Care Teams Assistant Director Relationship Specialty Start Date End Date Jayy Guzman MD [address] [place] [address] PCP - General Family Medicine 12/28/22 12/16/24 Jayy Guzman MD [address] [place] [address] PCP - Carolynn KEN 02/20/24 Marcellus Valenzuela DO [address] [place] [address] PCP - General Family Medicine 12/17/24 02/16/25 Marcellus Valenzuela DO [address] [place] [address] PCP - General Family Medicine 02/17/25 Zo Tavarez LSW [address] [place] [address] Facilities Technician Family Medicine 02/22/23 Kandace Harvey, MATTRESS FILLER [address] [place] [address] Nurse Practitioner Family Medicine 10/24/23 12/16/24 Marcellus Valenzuela DO [address] [place] [address] Referring Physician Family Medicine 05/29/24 02/16/25 documented as of this encounter
--- OUTSIDE RECORDS SUMMARY | 2025-04-09 08:18 | XMS_ITS | Encounter Summary ---
Author Organization [facility] Address [address] [place] [address] Care Team Providers Care Private Duty Nurse Name Role Phone Jayy Guzman MD Primary Care Provider Zo Tavarez INSURANCE CLAIMS SPECIALIST Unavailable Marely Seals NP Unavailable Kandace Harvey SILK SPREADER Unavailable [phone] Jayy Guzman MD Unavailable [phone] Marcellus Valenzuela DO Unavailable [phone] Marcellus Valenzuela DO Primary Care Provider [phone] Marcellus Valenzuela DO Primary Care Provider [phone] Encounter Details Date Type Department Care Team (Late st Contact Info) Description 06/17/2024 Abstract [facility] [place] [facility] [address] [place] [address] Jayy Guzman MD [address] [place] [address] Social History Tobacco Use Types Packs/Day Years [...] 04/15/2023 How often do you attend [facility] or methodist services? Patient declined 04/15/2023 Do [...] Recorded Patient Health Questionnaire-2 Score 0 06/04/2024 [facility] [place] of Occupat ional Health - Occupational Stress [...] [address], [address] [place] [address] Marcellus Valenzuela DO [address] [place] [address] documented as of this encounter Visit Diagnoses Not on filedocumented in this encounter Additional Health Concerns Assessment Noted Time PHQ-9 Depression Total Score: 10 024 10:00 AM EDT documented as of this encounter Care Teams Private Duty Nurse Relationship Specialty Start Date End Date Guzman, Jayy A, MD [address] [place] [address] PCP - General Family Medicine 12/28/22 12/16/24 Jayy Guzman MD [address] [place] [address] PCP - Carolynn KEN 02/20/24 Marcellus Valenzuela DO [address] [place] [address] PCP - General Family Medicine 12/17/24 02/16/25 Marcellus Valenzuela DO [address] [place] [address] PCP - General Family Medicine 02/17/25 Zo Tavarez LSW [address] [place] [address] Night Coordinator Family Medicine 02/22/23 Marely Seals NP [address] [place] [address] Nurse Practitioner Family Medicine 10/24/23 10/21/24 Kandace Harvey NP [address] [place] [address] Nurse Practitioner Family Medicine 10/24/23 12/16/24 Marcellus Valenzuela DO [address] [place] [address] Referring Physician Family Medicine 05/29/24 02/16/25 documented as of this encounter
--- OUTSIDE RECORDS SUMMARY | 2025-04-09 08:18 | XMS_ITS | Encounter Summary ---
Author Organization [facility] Address [address] [place] [address] Care Team Providers Care Tray Server Name Role Phone Jayy Guzman MD Primary Care Provider [phone] Zo Tavarez MEMBER OF THE LEGISLATIVE [employer]SEMBLY Unavailable Marely Seals NP Unavailable Kandace Harvey EVAPORATOR SUPERVISOR Unavailable [phone] Jayy Guzman MD Unavailable [phone] Marcellus Valenzuela DO Unavailable [phone] Marcellus Valenzuela DO Primary Care Provider [phone] Marcellus Valenzuela DO Primary Care Provider [phone] Encounter Details Date Type Department Care Team (Late st Contact Info) Description 06/17/2024 Abstract [facility] [place] [facility] [address] [place] [phone] Jayy Guzman MD [address] [place] [address] Social History Tobacco Use Types Packs/Day Years [...] 04/15/2023 How often do you attend [facility] or jehovah's witness services? Patient declined 04/15/2023 Do you belong [...] Recorded Patient Health Questionnaire-2 Score 0 06/04/2024 [facility] [place] of Occupat ional Health - Occupational Stress [...] [address], [address] [place] [address] Marcellus Valenzuela DO [address] [place] [address] documented as of this encounter Visit Diagnoses Not on filedocumented in this encounter Additional Health Concerns Assessment Noted Time PHQ-9 Depression Total Score: 10 024 10:00 AM EDT documented as of this encounter Care Teams Tray Server Relationship Specialty Start Date End Date Guzman, Jayy A, MD [address] [place] [address] PCP - General Family Medicine 12/28/22 12/16/24 Jayy Guzman MD [address] [place] [address] PCP - Carolynn KNE 02/20/24 Marcellus Valenzuela DO [address] [place] [address] PCP - General Family Medicine 12/17/24 02/16/25 Marcellus Valenzuela DO [address] [place] [address] PCP - General Family Medicine 02/17/25 Zo Tavarez LSW [address] [place] [address] Geosciences Associate Professor Family Medicine 02/22/23 Marely Seals NP [address] [place] [address] Nurse Practitioner Family Medicine 10/24/23 10/21/24 Kandace Harvey NP [address] [place] [address] Nurse Practitioner Family Medicine 10/24/23 12/16/24 Marcellus Valenzuela DO [address] [place] [address] Referring Physician Family Medicine 05/29/24 02/16/25 documented as of this encounter
--- OUTSIDE RECORDS SUMMARY | 2025-04-09 08:18 | XMS_ITS | Encounter Summary ---
Author Organization [facility] Address [address] [facility] [place] [address] Care Team Providers Care Animal Assistant Name Role Phone Jayy Guzman MD Primary Care Provider [phone] Zo Tavarez PHOSPHORIC ACID SUPERVISOR Unavailable Kandace Harvey BODY AND FENDER MECHANIC Unavailable [phone] Jayy Guzman MD Unavailable [phone] Marcellus Valenzuela DO Unavailable [phone] Marcellus Valenzuela DO Primary Care Provider [phone] Marcellus Valenzuela DO Primary Care Provider [phone] Encounter Details Date Type Department Care Team (Late st Contact Info) Description 11/03/2024 Abstract [facility] [address] [place] [address] Marcellus Valenzuela DO [address] [address] [place] [address] Social History Tobacco Use Types Packs/Day Years [...] Recorded Patient Health Questionnaire-2 Score 0 10/26/2024 [facility] [place] of Occupat ional Health - Occupational Stress [...] [address], [address] [place] [address] Marcellus Valenzuela DO [address] [place] [address] documented as of this encounter Visit Diagnoses Not on filedocumented in this encounter Additional Health Concerns Assessment Noted Time PHQ-9 Depression Total Score: 10 024 10:00 AM EDT documented as of this encounter Care Teams Animal Assistant Relationship Specialty Start Date End Date Jayy Guzman MD [address] [place] [address] PCP - General Family Medicine 12/28/22 12/16/24 Jayy Guzman MD [address] [place] [address] PCP - Carolynn KEN 02/20/24 Marcellus Valenzuela DO [address] [place] [address] PCP - General Family Medicine 12/17/24 02/16/25 Marcellus Valenzuela DO [address] [place] [address] PCP - General Family Medicine 02/17/25 Zo Tavarez LSW [address] [place] [address] Hoop Bender Tank Family Medicine 02/22/23 Kandace Harvey, BODY AND FENDER MECHANIC [address] [place] [address] Nurse Practitioner Family Medicine 10/24/23 12/16/24 Marcellus Valenzuela DO [address] [place] [address] Referring Physician Family Medicine 05/29/24 02/16/25 documented as of this encounter
--- OUTSIDE RECORDS SUMMARY | 2025-04-09 08:18 | XMS_ITS | Encounter Summary ---
Author Organization [facility] Address [address] [facility] [place] [address] Care Team Providers Care Database Support Name Role Phone Jayy Guzman MD Primary Care Provider [phone] Zo Tavarez LAYOUT TECHNICIAN Unavailable Kandace Harvey LUMBER RACKER Unavailable [phone] Jayy Guzman MD Unavailable [phone] Marcellus Valenzuela DO Unavailable [phone] Marcellus Valenzuela DO Primary Care Provider [phone] Marcellus Valenzuela DO Primary Care Provider [phone] Encounter Details Date Type Department Care Team (Late st Contact Info) Description 11/14/2024 Results Follow-Up [facility] [address] [place] [address] Marcellus Valenzuela DO [address] [address] [place] [address] XR lumbar spine 4+ views w flexion [...] Recorded Patient Health Questionnaire-2 Score 2 11/09/2024 [facility] [place] of Occupat ional Health - Occupational Stress [...] [address] [place] [address] Marcellus Valenzuela DO [address] [place] [address] documented as of this encounter Visit Diagnoses Not on filedocumented in this encounter Additional Health Concerns Assessment Noted Time PHQ-9 Depression Total Score: 10 024 10:00 AM EDT documented as of this encounter Care Teams Database Support Relationship Specialty Start Date End Date Jayy Guzman MD [address] [place] [address] PCP - General Family Medicine 12/28/22 12/16/24 Jayy Guzman MD [address] [place] [address] PCP - Carolynn KEN 02/20/24 Marcellus Valenzuela DO [address] [place] [address] PCP - General Family Medicine 12/17/24 02/16/25 Marcellus Valenzuela DO [address] [place] [address] PCP - General Family Medicine 02/17/25 Zo Tavarez LSW [address] [place] [address] Prints And Drawings Curator Family Medicine 02/22/23 Kandace Harvey NP [address] [place] [address] Nurse Practitioner Family Medicine 10/24/23 12/16/24 Marcellus Valenzuela DO [address] [place] [address] Referring Physician Family Medicine 05/29/24 02/16/25 documented as of this encounter
--- OUTSIDE RECORDS SUMMARY | 2025-04-09 08:19 | XMS_ITS | Encounter Summary ---
Author Organization [facility] Address [address] [facility] [place] [address] Care Team Providers Care Global Sales Director Name Role Phone DaysiZo PEDRO Unavailable Jayy Guzman MD Unavailable [phone] Marcellus Valenzuela DO Unavailable [phone] Marcellus Valenzuela DO Primary Care Provider [phone] Marcellus Valenzuela DO Primary Care Provider [phone] Encounter Details Date Type Department Care Team (Late st Contact Info) Description 01/07/2025 Abstract [facility] [place] [facility] [address] [place] [address] Marcellus Valenzuela DO [address] [address] [place] [address] Social History Tobacco Use Types Packs/Day Years [...] How often do you attend chur or quaker services? Patient declined 04/15/2023 Do you belong [...] Recorded Patient Health Questionnaire-2 Score 0 12/24/2024 [facility] of Occupat ional Health - Occupational [...] Family Practice [address], [facility] [address] [place] [address] Marcellus Valenzuela DO [address] [place] [address] documented as of this encounter Visit Diagnoses Not on filedocumented in this encounter Additional Health Concerns Assessment Noted Time PHQ-9 Depression Total Score: 10 024 10:00 AM EDT documented as of this encounter Care Teams Global Sales Director Relationship Specialty Start Date End Date Jayy Guzman MD [address] [place] [address] PCP - Carolynn KEN 02/20/24 Marcellus Valenzuela DO [address] [place] [address] PCP - General Family Medicine 12/17/24 02/16/25 Marcellus Valenzuela DO [address] [place] [address] PCP - General Family Medicine 02/17/25 Zo Tavarez LSW [address] [place] [address] Custom Clothier Family Medicine 02/22/23 Marcellus Valenzuela DO [address] [place] [address] Referring Physician Family Medicine 05/29/24 02/16/25 documented as of this encounter
--- OUTSIDE RECORDS SUMMARY | 2025-04-09 08:19 | XMS_ITS | Encounter Summary ---
Author Organization [facility] Address [address] [place] [address] Care Team Providers Care Fire Lookout Name Role Phone Jayy Guzman MD Primary Care Provider [phone] Zo Tavarez ETHANOL OPERATOR Unavailable Marely Seals NP Unavailable Kandace Harvey SUPERVISOR HOME RESTORATION SERVICE Unavailable [phone] Jayy Guzman MD Unavailable [phone] Marcellus Valenzuela DO Unavailable [phone] Marcellus Valenzuela DO Primary Care Provider [phone] Marcellus Valenzuela DO Primary Care Provider [phone] Encounter Details Date Type Department Care Team (Late st Contact Info) Description 07/03/2024 Abstract [facility] [place] [facility] [address] [place] [address] Jayy Guzman MD [address] [place] [address] Social History Tobacco Use Types Packs/Day Years [...] declined 04/15/2023 How often do you attend [facility] or protestant services? Patient declined 04/15/2023 Do [...] Recorded Patient Health Questionnaire-2 Score 0 06/04/2024 [facility] [place] of Occupat ional Health - Occupational Stress [...] [address] [place] [address] Marcellus Valenzuela DO [address] [place] [address] documented as of this encounter Visit Diagnoses Not on filedocumented in this encounter Additional Health Concerns Assessment Noted Time PHQ-9 Depression Total Score: 10 024 10:00 AM EDT documented as of this encounter Care Teams Fire Lookout Relationship Specialty Start Date End Date Guzman, Jayy A, MD [address] [place] [address] PCP - General Family Medicine 12/28/22 12/16/24 Jayy Guzman MD [address] [place] [address] PCP - Carolynn KEN 02/20/24 Marcellus Valenzuela DO [address] [place] [address] PCP - General Family Medicine 12/17/24 02/16/25 Marcellus Valenzuela DO [address] [place] [address] PCP - General Family Medicine 02/17/25 Zo Tavarez LSW [address] [place] [address] Drilling Machine Operator Family Medicine 02/22/23 Marely Seals NP [address] [place] [address] Nurse Practitioner Family Medicine 10/24/23 10/21/24 Kandace Harvey NP [address] [place] [address] Nurse Practitioner Family Medicine 10/24/23 12/16/24 Marcellus Valenzuela DO [address] [place] [address] Referring Physician Family Medicine 05/29/24 02/16/25 documented as of this encounter
--- OUTSIDE RECORDS SUMMARY | 2025-04-09 08:19 | XMS_ITS | Clinical Summary ---
Author Organization [facility] Address [address] [place] [address] Care Team Providers Care Grind Operator Name Role Phone Zo Tavarez PEDRO Unavailable Jayy Guzman MD Unavailable [phone] Marcellus Valenzuela DO Primary Care Provider [phone] Allergies Active Allergy Reactions Criticality Noted Date [...] CT 05/25/2024 Pleural effusion 05/25/2024 Polymyalgia rheumatica ([facility]) 05/25/2024 Pulmonary hypertension 05/25/2024 Renal artery stenosis, [facility], bilateral 024 Rheumatoid arthritis 05/25/2024 S/P CABG [...] no red flags, refills sent Orders: HYDROcodone-acetaminophen ([place]) 5-325 MG tablet; Take 1 tablet by [...] (irritable bowel syndrome) 01/28/2023 04/16/2023 Atherosclerosis of [facility] co ronary artery of [facility] heart without angina pectoris 12/21/202204/2023 Obesity (BMI [...] Encounters Date Type Department Care Team Description 04/06/2025 Patient Outreach [place] [id number] [place] [address] Zo Tavarez LSW 03/29/2025 Clinisync Result Encounter [facility] External Department Unsolicited Provider, Generic External Data 03/15/2025 Patient Outreach [place] [id number] [place] [address] Zo Tavarez LSW 03/09/2025 Patient Outreach [place] [id number] [place] [address] Zo Tavarez LSW 03/02/2025 Patient Outreach [place] [address] [place] [address] Zo Tavarez LSW 02/24/2025 [facility]phone [facility] [address], [address] [place] [address] Keara Burgos MA 02/23/2025 1:20 PM EDT [facility] 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, [address] [place] [address] Marcellus Valenzuela DO 02/23/[address] [facility] [address] [place] [address] Zo Tavarez LSW 02/16/2025 Abstract [facility] [address], [address] [place] [address] Marcellus Valenzuela, 02/16/2025 Patient Outreach [place] [id number] [place] [address] Casandra Jung RN 02/12/2025 Patient Outreach [place] [address] [place] [address] Zo Tavarez LSW 02/08/2025 Abstract [facility] [address], [address] [place] [address] Marcellus Valenzuela, 02/04/2025 Patient Outreach [place] [address] [place] [address] Zo Tavarez LSW 02/04/2025 Abstract [facility] [address], [facility] [address] [place] [address] Marcellus Valenzuela, 01/18/2025 Clinisync Result Encounter [facility] External Department Unsolicited Provider, Generic External Data 01/07/2025 Abstract [facility] [address] [place] [address] Marcellus Valenzuela, 01/07/2025 Abstract [facility] [address] [place] [address] Marcellus Valenzuela, 01/07/2025 Patient Outreach [place] [id number] [place] [address] Zo Tavarez, PEDRO from Last 3 Months [...] No Known Problems Son 4 angel ldob 1972 Relation Name Status Comments Brother peng Alive [...] often do you attend chur ch or mandaeism services? Patient declined 04/15/2023 Do [...] Recorded Patient Health Questionnaire-2 Score 2 02/23/2025 [facility] - Occupational Stress Questionnaire Answer Date Recorded [...] [address], [address] [place] [address] Marcellus Valenzuela DO [address] [place] [address] Health Maintenance Due Date Last Done Comments CT Colonography 1950 Colonoscopy 1950 FIT 1950 FOBT 1950 Sigmoidoscopy 1950 Pneumococcal Vaccine: 65+ Ye ars (1 of 2 - PCV) 11/06/1971 Mammogram 03/17/2020 03/17/2019, 03/17/2019 Colorectal Cancer Screening 12/29/2021 FIT-DNA 12/29/2021 12/29/2018, 12/29/2018 Influenza Vaccine (#1) 2025 Procedures Procedure Name Priority Date/Time Associated Diagnosis Comments ALL POTASSIUM Routine 03/29/2025 7:18 AM EDT ALL POTASSIUM Routine 01/18/2025 7:54 AM EDT BI MAMMOGRAM SCREENING BILATERAL Routine 03/17/2019 Generalized anxiety disorder Body mass index (BMI) 30.0-30.9, adult Encounter for screening mammogram for malignant neoplasm of breast Lumbago with sciatica, unspecified side LAB COLOGUARD COLON CANCER SCREEN Routine 12/29/2018 from Last 3 Months or Most Recently Relevant to Health Maintenance Results * (ABNORMAL) ALL POTASSIUM (03/29/2025 7:18 AM EDT) Only the most recent of2 resultswithin the time period is included. POTASSIUM 5.6(H) 3.5 - 5.1 mmol/L TBH 03/29/2025 7:18 AM EDT 03/29/2025 8:06 AM EDT Narrative [facility] - 03/29/2025 8:24 AM EDT [facility] us Generic External Data Provider [facility] F inal Result [facility] * Bilateral screening mammogram (03/17/2019) Anatomical Region [...] Narrative 03/17/2019 12:00 AM EDT PERFORMED AT [facility] LOCATION:[address] [place] [address] [place] [address] Mammography Report Signed Patient: Lupe Butler MR#: [id number] 1 : 1950 Acct:[id number] Age/Sex: 68 / F ADM Date: 03/17/19 Loc: [place] Room: Type: [facility] Attending Dr: TAZ Glasgow APRN Ordering Provider: [...] Note CONVERSION, GENERIC - 01/25/2023 PERFORMED AT [facility] LOCATION:[address] [place] [address] [place] [address] Mammography Report Signed Patient: Lupe ButlerMR#: [id number] 1 : 3Acct:[id number] Age/Sex: 68 / FADM Date: 03/17/19 Loc: [place] Room:Type: [facility] Attending Dr: TAZ Glasgow APRN Ordering Provider: [...] Location: [facility] Transcribed By: ZEFERINO 03/17/191736 Dictated By: Kameron Olivera MD 03/17/191726 Signed By: <Electronically signed by MD Kameron Olivera in OV> 03/17/191736 us Akiko Sánchez CIVIL RIGHTS ATTORNEY IMG BI PROCEDURES Final Resu lt * [...] Mckenzie et al, N Engl J Med 2014;370(14):8500-4931) COLOGUARD RE-SCREENING RECOMMENDATION: Periodic routine colorectal cancer screening is an important part of preventive healthcare for asymptomatic persons at average risk for colorectal cancer. Following a negative Cologuard result, the [place] [employer] Society and U.S. Multi-Society Task Force screening guidelines recommend a Cologuard re-screening interval of 3 years. References: [place] [employer] Society (ACS). Colorectal cancer prevention and early detection. [place], [place]: [place] [employer] Society; [updated 2015Nov 12]. https://www.cancer.org/cancer/ewhdl-ghniaf-npazqz/zykntuyyn-csdykkqbe-zqftjyl/ac s-rec ommendations.html. Accessed March 21, 2018; Cl DK, Kirstin CR, Abdoul SamuelK, Colorectal Cancer Screening: Recommendations for Physicians and Patients from the U.S. Multi-Society Task Force on Colorectal Cancer Screening, Am J Gastroenterology 2017; 112:3747-8655. Test Type: Composite algorithmic analysis of stool [...] can be accessed at the following location: www.ActX.Ringz.TV/results. Additional description of the Cologuard test process, warnings and precautions can be found at www.cologuardtest.com. Rx Only. 12/29/2018 us Akiko Sánchez NP LAB MOLECULAR DIAGNOSTICS OR DERABLES Final Result [facility] from Last 3 Months or Most Recently Relevant to Health Maintenance Insurance [employer] MED[employer]ARE [employer]VANTAGE Care Teams Grind Operator Relationship Specialty Start Date End Date Jayy Guzman MD [address] [place] [address] PCP - Carolynn KEN 02/20/24 Marcellus Valenzuela DO [address] [address] PCP - General Family Medicine 02/17/25 Zo Tavarez LSW [address] [place] [address] Online Media Buyer Family Medicine 02/22/23
--- OUTSIDE RECORDS SUMMARY | 2025-04-09 08:19 | XMS_ITS | Encounter Summary ---
Author Organization [facility] Address [address] [place] [address] Care Team Providers Care Mine Environmental Engineer Name Role Phone Jayy Guzman MD Primary Care Provider [phone] Zo Tavarez CLINICAL INVESTIGATOR Unavailable Marely Seals NP Unavailable Kandace Harvey BRIDGE CONSTRUCTION INSPECTOR Unavailable [phone] Jayy Guzman MD Unavailable [phone] Marcellus Valenzuela DO Unavailable [phone] Marcellus Valenzuela DO Primary Care Provider [phone] Marcellus Valenzuela DO Primary Care Provider [phone] Encounter Details Date Type Department Care Team (Late st Contact Info) Description 07/02/2024 Abstract [facility] [place] [facility] [address] [place] [address] Jayy Guzman MD [address] [place] [address] Social History Tobacco Use Types Packs/Day Years [...] declined 04/15/2023 How often do you attend [facility] or holiness services? Patient declined 04/15/2023 Do [...] Recorded Patient Health Questionnaire-2 Score 0 06/04/2024 [facility] [place] of Occupat ional Health - Occupational Stress [...] [address], [address] [place] [address] Marcellus Valenzuela DO [address] [place] [address] documented as of this encounter Visit Diagnoses Not on filedocumented in this encounter Additional Health Concerns Assessment Noted Time PHQ-9 Depression Total Score: 10 024 10:00 AM EDT documented as of this encounter Care Teams Mine Environmental Engineer Relationship Specialty Start Date End Date Guzman, Jayy A, MD [address] [place] [address] PCP - General Family Medicine 12/28/22 12/16/24 Jayy Guzman MD [address] [place] [address] PCP - Carolynn KEN 02/20/24 Marcellus Valenzuela DO [address] [place] [address] PCP - General Family Medicine 12/17/24 02/16/25 Marcellus Valenzuela DO [address] [place] [address] PCP - General Family Medicine 02/17/25 Zo Tavarez LSW [address] [place] [address] [facility] 02/22/23 Marely Seals NP [address] [place] [address] Nurse Practitioner Family Medicine 10/24/23 10/21/24 Kandace Harvey NP [address] [place] [address] Nurse Practitioner Family Medicine 10/24/23 12/16/24 Marcellus Valenzuela DO [address] [place] [address] Referring Physician Family Medicine 05/29/24 02/16/25 documented as of this encounter
--- OUTSIDE RECORDS SUMMARY | 2025-04-09 08:19 | XMS_ITS | Encounter Summary ---
Author Organization [facility] Address [address] [facility] [place] [address] Care Team Providers Care After School Coordinator Name Role Phone DaysiZo PEDRO Unavailable Jayy Guzman MD Unavailable [phone] Marcellus Valenzuela DO Unavailable [phone] Marcellus Valenzuela DO Primary Care Provider [phone] Marcellus Valenzuela DO Primary Care Provider [phone] Encounter Details Date Type Department Care Team (Late st Contact Info) Description 12/17/2024 Abstract [facility] [place] [facility] [address] [place] [address] Marcellus Valenzuela DO [address] [address] [place] [address] Social History Tobacco Use Types Packs/Day Years [...] Recorded Patient Health Questionnaire-2 Score 2 11/09/2024 [facility] of Occupat ional Health [...] Family Practice [address], [facility] [address] [place] [address] Marcellus Valenzuela DO [address] [place] [address] documented as of this encounter Visit Diagnoses Not on filedocumented in this encounter Additional Health Concerns Assessment Noted Time PHQ-9 Depression Total Score: 10 024 10:00 AM EDT documented as of this encounter Care Teams After School Coordinator Relationship Specialty Start Date End Date Jayy Guzman MD [address] [place] [address] PCP - Carolynn KEN 02/20/24 Marcellus Valenzuela DO [address] [place] [address] PCP - General Family Medicine 12/17/24 02/16/25 Marcellus Valenzuela DO [address] [place] [address] PCP - General Family Medicine 02/17/25 Zo Tavarez LSW [address] [place] [address] Narrow Fabric Loom Fixer Family Medicine 02/22/23 Marcellus Valenzuela DO [address] [place] [address] Referring Physician Family Medicine 05/29/24 02/16/25 documented as of this encounter
--- OUTSIDE RECORDS SUMMARY | 2025-04-09 08:19 | XMS_ITS | Encounter Summary ---
Author Organization [facility] Address [address] [facility] [place] [address] Care Team Providers Care Harvesting Manager Name Role Phone Jayy Guzman MD Primary Care Provider [phone] Zo Tavarez COMMUNICATION COORDINATOR Unavailable Kandace Harvey MOLD HOISTER Unavailable [phone] Jayy Guzman MD Unavailable [phone] Marcellus Valenzuela DO Unavailable [phone] Marcellus Valenzuela DO Primary Care Provider [phone] Marcellus Valenzuela DO Primary Care Provider [phone] Encounter Details Date Type Department Care Team (Late st Contact Info) Description 12/07/2024 Abstract [facility] [place] [address] [place] [address] Marcellus Valenzuela DO [address] [address] [place] [address] Social History Tobacco Use Types Packs/Day Years [...] Recorded Patient Health Questionnaire-2 Score 2 11/09/2024 [facility] of Occupat ional Health - Occupational Stress [...] [address], [address] [place] [address] Marcellus Valenzuela DO [address] [place] [address] documented as of this encounter Visit Diagnoses Not on filedocumented in this encounter Additional Health Concerns Assessment Noted Time PHQ-9 Depression Total Score: 10 024 10:00 AM EDT documented as of this encounter Care Teams Harvesting Manager Relationship Specialty Start Date End Date Jayy Guzman MD [address] [place] [address] PCP - General Family Medicine 12/28/22 12/16/24 Jayy Guzman MD [address] [place] [address] PCP - Carolynn KEN 02/20/24 Marcellus Valenzuela DO [address] [place] [address] PCP - General Family Medicine 12/17/24 02/16/25 Marcellus Valenzuela DO [address] [place] [place] [address] PCP - General Family Medicine 02/17/25 Zo Tavarez LSW [address] [place] [address] Irrigation Technician Family Medicine 02/22/23 Kandace Harvey, MOLD HOISTER [address] [place] [address] Nurse Practitioner Family Medicine 10/24/23 12/16/24 Marcellus Valenzuela DO [address] [place] [address] Referring Physician Family Medicine 05/29/24 02/16/25 documented as of this encounter
--- OUTSIDE RECORDS SUMMARY | 2025-04-09 08:19 | XMS_ITS | Encounter Summary ---
Author Organization [facility] Address [address] [place] [address] Care Team Providers Care Building Certifier Name Role Phone Jayy Guzman MD Primary Care Provider [phone] Jayy Guzman MD Unavailable [phone] Zo Tavarez BALLISTICS EXPERT FORENSIC Unavailable Marely Seals NP Unavailable Kandace Harvey PRODUCTION WELDER Unavailable [phone] Jayy Guzman MD Unavailable [phone] Marcellus Valenzuela DO Unavailable [phone] Marcellus Valenzuela DO Primary Care Provider Marcellus Valenzuela DO Primary Care Provider Encounter Details Date Type Department Care Team (Late st Contact Info) Description 12/25/2022 Clinisync Result Encounter NOMS External Department Unsolicited Jayy Guzman MD [address] [place] [address] Social History Tobacco Use Types Packs/Day Years [...] Description 04/27/2025 1:20 PM EDT [facility] [address], [facility] [address] [place] [id number] Duong Valenzuelael, DO [address] Nnamdi [facility] [place] [address] documented as of this encounter [...] Routine 12/25/2022 11:05 AM EDT [facility] CYTOLOGY NON-DOCTOR OF PODIATRY Routine 12/25/2022 11:02 AM EDT BRONCHOSCOPY 12/25/2022 10:45 AM EDT documented in this encounter Results * [facility] FISH FOR ALK (2P23) THINPREP NSCLC (12/25/2022 11:14 AM EDT) [facility] FISH FOR ALK (2P23) THINPREP NSCLC [facility] Comment: FISH FOR ALK (2P23) THINPREP NSCLC Laboratory Accession Number: [id number] Case: [id number] Sample Type: FNA Sample Description: Transbronchial, FNA, [...] et al. Anaplastic Lymphoma Kinase Inhibition in Hnh-Hkcyk-Klwt Lung Cancer. N Engl J Med 2010;363:9885-6108. 2) Zara NI, Brittany PT, Reba MN, et al. Molecular Testing Guideline for the Selection of Lung Cancer Patients for EGFR and ALK Tyrosine Kinase Inhibitors: Guideline from the College of [place] Pathologists, International Association for the Study of Lung Cancer, and Association for Molecular Pathology. J Mol Diagn 2013;15:415-53. 3) NCCN Clinical Practice Guidelines in Oncology: Non-Small Cell Lung Cancer, National Comprehensive Cancer Network, Inc. Available at NCCN.org. 4) Benjamin SJ, Jeremaís M, Leodan S, et al. Unique clinicopathologic features characterize ALK-rearranged lung adenocarcinoma in the western population. Clin Cancer Res 2009;15:4292-4048. LIMITATIONS: This test will not identify all rearrangements in ALK. Rare, cryptic abnormalities may be below the resolution of the assay, or may otherwise be undetected. Specimen size, quality or representativeness can affect the quality of the results. DISCLAIMER: This test was developed and its performance characteristics determined by the [facility]'s [facility] [place] ([facility]). It has not been cleared or approved by the FDA. [facility] is regulated under CLIA as qualified to perform high- complexity testing. This test is used for clinical purposes. It should not be regarded as investigational or for research. Interpretation performed at [facility], [address] [place] [address]. CLIA Number: [id number] As reviewed by Byron Corbett MD, PhD 12/25/2022 11:1 4 AM EDT 12/28/2022 10:35 PM EDT Narrative CLINISYNC - 01/08/2023 7:02 PM EDT Specimen Type: SPECIMEN OBTAINED BY ASPIRATION Ordering Facility: [facility] Address: [address] [place] [address] Original Ordering Provider: ANGEL ARNOLD Generic External Data Provider SHELBY Woody alfonso Result SHELBY [facility] [address] [facility] [address] [place] [address] * [facility] LUNG CANCER HOTSPOT GENE PANEL CYTOLOGY (12/25/2022 11:14 AM EDT) [facility] LUNG CANCER HOTSPOT GENE PANEL CYTOLOGY [facility] Comment: Lung Cancer Hotspot Gene Panel Laboratory Accession Number: [id number] Case #: [id number] Part ID: B Sample Type: FNA % [...] In-frame deletions within exon 19 and the [id number] mutation in exon 21 account for 90% [...] (Margi J, et al. J Clin Oncol 2013;31:9118-5523; Gabriel SAida S. Betty Oncol 2012;23(March (Suppl. 10)):e458-5027. Maryanne WHermila. Lancet Oncol 2011;12:175-80) refs 16, [...] are rarely found in combination with other warehouse associate driver mutations such as EGFR, BRAF, HER2, ALK and ROS1 rearrangements. Activating KRAS mutations may be an adverse prognostic marker in lung adenocarcinoma, and appear to predict non responsiveness to anti-EGFR tyrosine kinase inhibitors. (NCCN Clinical Practice Guidelines in Oncology: Non-Small Cell Lung Cancer, available at NCCN.org; Sal NI, Brittany PT. Reba MB, et al. J Mol Diagn 2013;15:415-53; Shunkocatherinea S, Clyde D, Tabatha R. Lancet Oncol [...] activation of multiple signaling pathways, including the TF2M-IFL-yOTI (cell survival) and the NOQ-BAL-TZT-ERK (cell proliferation) and FAK (cell adhesion and [...] utilizing the custom Cancer Hotspot Panel v.1 ([employer], [place], [place]), DNA sequencing of gene mutation hotspot regions was performed on the MiSeq instrument (Ill[employer], [place], [place]). Pivot Acquisition software ([employer], [place], [place]) was used to analyze FASTQ files [...] developed and its performance characteristics determined by [facility]'s [facility] and Laboratory Medicine [place] ([facility]). It has not been cleared or approved by the FDA. [facility] is regulated under CLIA as certified to perform high- complexity testing. This test is used for clinical purposes. It should not be regarded as investigational or for research. Testing and interpretation performed at [facility], [address] [place] [address]. CLIA Number: [id number] As reviewed by Charis Martin, PhD, [facility] 12/25/2022 11:1 4 AM EDT 12/28/2022 10:35 PM EDT Narrative SHELBY - 01/04/2023 4:27 PM EDT Specimen Type: SPECIMEN OBTAINED BY ASPIRATION Ordering Facility: [facility] Address: [address] [place] [address] Original Ordering Provider: ANGEL ARNOLD us Generic External Data Provider SHELBY hamilton Result SHELBY [address] [place], [place] [id number] * [facility] PD-L1 22C3 (12/25/2022 11:05 AM EDT) [facility] PD-L1 BY IMMUNOHISTOCHEMISTY [facility] Comment: Immunohistochemistry for PD-L1 expression Tumor Cells Positive: 95% Block Analyzed: A1 PD-L1 Clone: 22C3 Comment: N/A Immunohistochemistry was performed on formalin fixed paraffin-embedded tissue using the mouse monoclonal antibody 22C3 ([employer]; [place], [place]) followed by ultrasensitive bright field detection (Optiview with amplification [[employer], [place]]). Criteria for interpretation require that tumor cells show membrane staining of any intensity for PD-L1. Laboratory Developed Test (LDT) Disclaimer: Performance characteristics of immunohistochemical, immunofluorescent and chromogenic in-situ hybridization tests have been determined by the performing laboratory within [facility]???s [facility] Pathology and Laboratory Medicine [place] ([facility], [facility], [facility], [facility], [facility], or [facility]) in a manner consistent with CLIA requirements. [...] Type: TISSUE SPECIMEN Ordering Facility: [facility] Address: [address] [place] [phone] Original Ordering Provider: ANGEL ARNOLD us Generic External Data Provider SHELBY hamilton Result CLINISYDANIEL [facility] [address] [facility] [address] [place] [address] * [facility] ROS1 GENE REARRANGEMENT (12/25/2022 11:05 AM EDT) [facility] ROS1 GENE REARRANGEMENT [facility] Comment: FISH for ROS1(6q22) Laboratory Accession Number: [id number] Case: [id number] Block: A1 Sample Type: FFPET Sample Description: [...] and its performance characteristics determined by the [facility]'s [facility] Pathology and Laboratory Medicine [place] ([facility]). It has not been cleared or approved by the FDA. [facility] is regulated under CLIA as qualified to perform high- complexity testing. This test is used for clinical purposes. It should not be regarded as investigational or for research. Interpretation performed at [facility], [facility] [place] [address]. CLIA Number: [id number] As reviewed by Byron Corbett MD, PhD 12/25/2022 11:0 5 AM EDT 01/01/2023 2:03 PM EDT [facility] CLINISYNC - 01/10/2023 5:40 PM EDT Specimen Type: TISSUE SPECIMEN Ordering Facility: [facility] Address: [address] [place] [phone] Original Ordering Provider: ANGEL ARNOLD Generic External Data Provider MEGHANAISYNC Woody inal Result Performing Organization Address [facility] de Phone Number SHELBY CABALLERO [address] [address] * [facility] AP SENDOUTS (12/25/2022 11:05 AM EDT) [facility] AP SENDOUTS [facility] Comment: At the request of Dr. Lupe Rodriguez, slides from block A1 of this case were sent to [facility] for FISH for RET testing and the results will be available in the patient's EMR when complete. 12/25/2022 11:0 5 AM EDT 01/01/2023 10:47 AM EDT Narrative CLINISYNC - 01/10/2023 9:01 AM EDT Specimen Type: TISSUE SPECIMEN Ordering Facility: [facility] Address: [address] [place] [phone] Original Ordering Provider: ANGEL ARNOLD Generic External Data Provider CLINISYNC F inal Result Performing Organization Address [facility] de Phone Number SHELBY HDZ [address] [address] * [facility] SURGICAL PATHOLOGY (12/25/2022 11:05 AM EDT) [facility] CASE REPORT [facility] Comment: Surgical Pathology Report Case: [id number] Authorizing Provider: Angel Arnold MD Collected: 12/25/2022 11:05 AM Ordering Location: [facility] Received: 12/25/2022 01:30 PM Endoscopy - [...] been determined by the performing laboratory within [facility]???s [facility] Pathology and Laboratory Medicine [place] ([facility], [facility], [facility], [facility], [facility], or [facility]) in a manner consistent with CLIA requirements. [...] in one cassette. Gross examination performed at [facility], [address] [place], [place] [id number] 12/25/2022 5:08 PM [facility] CLINICAL HISTORY [facility] Comment: Pre-op diagnosis: Adenopathy [R59.9] [facility] FINAL PERFORMING LAB [facility] Comment: Diagnostic interpretation performed at [address] [address] [facility]# [id number] Grinder Set Up Operator Internal: Geovanni Dumont M.D. 12/25/2022 11:0 5 AM EDT 12/25/2022 3:07 PM EDT Narrative SHELBY - 12/27/2022 5:41 PM EDT Specimen Type: TISSUE SPECIMEN Ordering Facility: [facility] Address: [address] [place] [address] Original Ordering Provider: ANGEL ARNOLD us Generic External Data Provider SHELBY hamilton Result SHELBY HDZ [address] [facility] [address] [place] [address] * [facility] CYTOLOGY NON-DOCTOR OF PODIATRY (12/25/2022 11:02 AM EDT) [facility] CASE REPORT [facility] Comment: Medical Cytology Report Case: [id number] Authorizing Provider: Angel Arnold MD Collected: 12/25/2022 11:02 AM Ordering Location: [facility] Received: 12/25/2022 11:43 AM Endoscopy - [...] COMMENT See also related surgical pathology report [id number] with diagnostic concurrence. Molecular studies are pending [...] discrete evaluation episode. Intra-procedural assessment performed at [facility], [place] [address] C[facility] ORDER COMMENT [facility] Comment: Pre-op diagnosis: Adenopathy [R59.9] [facility] FINAL PERFORMING LAB [facility] Comment: Technical component, construction equipment technician screening performed at [facility], [place] [address] [place]# [id number] Diagnostic interpretation performed at [facility], [address] [id number] [place]# [id number] Grinder Set Up Operator Internal: Mike Barragan M.D. 12/25/2022 11:0 2 AM EDT 12/25/2022 11:56 AM EDT Narrative CLINISYNC - 12/28/2022 8:13 AM EDT Specimen Type: SPECIMEN OBTAINED BY ASPIRATION Ordering Facility: [facility] Address: [address] [place] [address] Original Ordering Provider: ANGEL ARNOLD us Generic External Data Provider SHELBY hamilton Result CLINAEOLUS PHARMACEUTICALSDANIEL F [address] [id number] * BRONCHOSCOPY (12/25/2022 10:45 AM EDT) Anatomical Region Laterality Modality Other 12/25/2022 10:4 5 AM EDT Narrative 12/25/2022 11:39 AM EDT [facility] Patient Name: Lupe Butler Procedure Date: 12/25/2022 10:45 AM Date of : 1950 Admit Type: Outpatient Age: 72 Room: [facility] Room 2 Gender: Female Attending MD: Angel [...] Procedure Note Radiology, Radiologist, MD - 12/25/2022 [facility] Patient Name: Lupe Butler Procedure Date: 12/25/2022 10:45 AM Date of : 1950 Admit Type: Outpatient Age: 72 Room: [facility] Room 2 Gender: Female Attending MD: Angel Arnold MD Procedure: Bronchoscopy Indications: Adenopathy, Mediastinal adenopathy Providers: Agnel Arnold MD (Doctor), Edilia Montes RN (Assisting [...] on filedocumented in this encounter Care Teams Building Certifier Relationship Specialty Start Date End Date Jayy Guzman MD [address] [place] [address] PCP - General Family Medicine 12/28/22 12/16/24 Jayy Guzman MD [address] [place] [address] PCP - Carolynn KEN 01/19/23 06/20/23 Jayy Guzman MD [address] [place] [address] PCP - Carolynn KEN 02/20/24 Marcellus Valenzuela DO [address] [place] [address] PCP - General Family Medicine 12/17/24 02/16/25 Marcellus Valenzuela DO [address] [place] [address] PCP - General Family Medicine 02/17/25 Zo Tavarez LSW [address] [place] [address] Environmental Projects Advisor Family Medicine 02/22/23 Marely Seals NP [address] [place] [address] Nurse Practitioner Family Medicine 10/24/23 10/21/24 Kandace Harvey NP [address] [place] [address] Nurse Practitioner Family Medicine 10/24/23 12/16/24 Marcellus Valenzuela DO [address] [place] [address] Referring Physician Family Medicine 05/29/24 02/16/25 documented as of this encounter
--- OUTSIDE RECORDS SUMMARY | 2025-04-09 08:19 | XMS_ITS | Encounter Summary ---
Author Organization [facility] Address [address] [place] [address] Care Team Providers Care Legislative Director Name Role Phone TavarezZo PEDRO Unavailable Jayy Guzman MD Unavailable [phone] Marcellus Valenzuela DO Unavailable [phone] Marcellus Valenzuela DO Primary Care Provider [phone] Marcellus Valenzuela DO Primary Care Provider [phone] Encounter Details Date Type Department Care Team (Late st Contact Info) Description 12/17/2024 Abstract [facility] [place] [facility] [address] [place] [address] Jayy Guzman MD [address] [place] [address] Social History Tobacco Use Types Packs/Day Years [...] Recorded Patient Health Questionnaire-2 Score 2 11/09/2024 [facility]at ional Health - Occupational [...] Family Practice [address], [facility] [address] [place] [address] Marcellus Valenzuela DO [address] [place] [address] documented as of this encounter Visit Diagnoses Not on filedocumented in this encounter Additional Health Concerns Assessment Noted Time PHQ-9 Depression Total Score: 10 024 10:00 AM EDT documented as of this encounter Care Teams Legislative Director Relationship Specialty Start Date End Date Jayy Guzman MD [address] [place] [address] PCP - Carolynn KEN 02/20/24 Marcellus Valenzuela DO [address] [place] [address] PCP - General Family Medicine 12/17/24 02/16/25 Marcellus Valenzuela DO [address] [place] [address] PCP - General Family Medicine 02/17/25 Zo Tavarez, NATIONAL ACCOUNT REPRESENTATIVE [address] [place] [address] Senior Marketing Data Analyst Family Medicine 02/22/23 Marcellus Valenzuela DO [address] [place] [address] Referring Physician Family Medicine 05/29/24 02/16/25 documented as of this encounter
--- OUTSIDE RECORDS SUMMARY | 2025-04-09 08:19 | XMS_ITS | Encounter Summary ---
Author Organization [facility] Address [address] [facility] [place] [address] Care Team Providers Care Hauling Contractor Name Role Phone Jayy Guzman MD Primary Care Provider [phone] Zo Tavarez ELECTRICIAN CONTROL EQUIPMENT Unavailable Kandace Harvey DISTRIBUTION ACCOUNTING CLERK Unavailable [phone] Jayy Guzman MD Unavailable [phone] Marcellus Valenzuela DO Unavailable [phone] Marcellus Valenzuela DO Primary Care Provider [phone] Marcellus Valenzuela DO Primary Care Provider [phone] Encounter Details Date Type Department Care Team (Late st Contact Info) Description 12/16/2024 Abstract [facility] [place] [facility] [address] [place] [address] Marcellus Valenzuela DO [address] [address] [place] [address] Social History Tobacco Use Types Packs/Day Years [...] Recorded Patient Health Questionnaire-2 Score 2 11/09/2024 [facility] of Occupat ional Health - Occupational Stress [...] [address], [address] [place] [address] Marcellus Valenzuela DO [address] [place] [address] documented as of this encounter Visit Diagnoses Not on filedocumented in this encounter Additional Health Concerns Assessment Noted Time PHQ-9 Depression Total Score: 10 024 10:00 AM EDT documented as of this encounter Care Teams Hauling Contractor Relationship Specialty Start Date End Date Jayy Guzman MD [address] [place] [address] PCP - General Family Medicine 12/28/22 12/16/24 Jayy Guzman MD [address] [place] [address] PCP - Carolynn KEN 02/20/24 Marcellus Valenzuela DO [address] [place] [address] PCP - General Family Medicine 12/17/24 02/16/25 Marcellus Valenzuela DO [address] [place] [place] [address] PCP - General Family Medicine 02/17/25 Zo Tavarez LSW [address] [place] [address] Public Records Researcher Family Medicine 02/22/23 Kandace Harvey, DISTRIBUTION ACCOUNTING CLERK [address] [place] [address] Nurse Practitioner Family Medicine 10/24/23 12/16/24 Marcellus Valenzuela DO [address] [place] [address] Referring Physician Family Medicine 05/29/24 02/16/25 documented as of this encounter
--- OUTSIDE RECORDS SUMMARY | 2025-04-09 08:19 | XMS_ITS | Encounter Summary ---
Author Organization [facility] Address [address] [facility] [place] [address] Care Team Providers Care Peanut Vendor Name Role Phone Jayy Guzman MD Primary Care Provider [phone] Zo Tavarez STRADDLE BUG DRIVER Unavailable Kandace Harvey NUTRITION SERVICES WORKER Unavailable [phone] Jayy Guzman MD Unavailable [phone] Marcellus Valenzuela DO Unavailable [phone] Marcellus Valenzuela DO Primary Care Provider [phone] Marcellus Valenzuela DO Primary Care Provider [phone] Encounter Details Date Type Department Care Team (Late st Contact Info) Description 12/07/2024 Abstract [facility] [place] [facility] [address] [place] [address] Marcellus Valenzuela DO [address] [address] [place] [address] Social History Tobacco Use Types Packs/Day Years [...] Recorded Patient Health Questionnaire-2 Score 2 11/09/2024 [facility] [place] of Occupat ional Health - Occupational Stress [...] [address], [address] [place] [address] Marcellus Valenzuela DO [address] [place] [address] documented as of this encounter Visit Diagnoses Not on filedocumented in this encounter Additional Health Concerns Assessment Noted Time PHQ-9 Depression Total Score: 10 024 10:00 AM EDT documented as of this encounter Care Teams Peanut Vendor Relationship Specialty Start Date End Date Jayy Guzman MD [address] [place] [address] PCP - General Family Medicine 12/28/22 12/16/24 Jayy Guzman MD [address] [place] [address] PCP - Carolynn KEN 02/20/24 Marcellus Valenzuela DO [address] [place] [address] PCP - General Family Medicine 12/17/24 02/16/25 Marcellus Valenzuela DO [address] [place] [place] [address] PCP - General Family Medicine 02/17/25 Zo Tavarez LSW [address] [place] [address] Diaphragm Builder Family Medicine 02/22/23 Kandace Harvey, NUTRITION SERVICES WORKER [address] [place] [address] Nurse Practitioner Family Medicine 10/24/23 12/16/24 Marcellus Valenzuela DO [address] [place] [address] Referring Physician Family Medicine 05/29/24 02/16/25 documented as of this encounter
--- OUTSIDE RECORDS SUMMARY | 2025-04-09 08:19 | XMS_ITS | Encounter Summary ---
Author Organization [facility] Address [address] [place] [address] Care Team Providers Care Inoculator Name Role Phone Jayy Guzman MD Primary Care Provider [phone] Zo Tavarez NURSING STUDENT Unavailable Marely Seals NP Unavailable Kandace Harvey FUNERAL DIRECTOR/EMBALMER Unavailable [phone] Jayy Guzman MD Unavailable [phone] Marcellus Valenzuela DO Unavailable [phone] Marcellus Valenzuela DO Primary Care Provider [phone] Marcellus Valenzuela DO Primary Care Provider [phone] Encounter Details Date Type Department Care Team (Late st Contact Info) Description 06/21/2024 Abstract [facility] [address] [place] [address] Jayy Guzman MD [address] [place] [address] Social History Tobacco Use Types Packs/Day Years [...] declined 04/15/2023 How often do you attend [facility] or islam services? Patient declined 04/15/2023 [...] Recorded Patient Health Questionnaire-2 Score 0 06/04/2024 [facility] of Occupat ional Health - Occupational Stress [...] [address], [address] [place] [address] Marcellus Valenzuela DO [address] [place] [address] documented as of this encounter Visit Diagnoses Not on filedocumented in this encounter Additional Health Concerns Assessment Noted Time PHQ-9 Depression Total Score: 10 024 10:00 AM EDT documented as of this encounter Care Teams Inoculator Relationship Specialty Start Date End Date Guzman, Jayy A, MD [address] [place] [address] PCP - General Family Medicine 12/28/22 12/16/24 Jayy Guzman MD [address] [place] [address] PCP - Carolynn KEN 02/20/24 Marcellus Valenzuela DO [address] [place] [address] PCP - General Family Medicine 12/17/24 02/16/25 Marcellus Valenzuela DO [address] [place] [address] PCP - General Family Medicine 02/17/25 Zo Tavarez LSW [address] [place] [address] Wet Silk Hanger Family Medicine 02/22/23 Marely Seals NP [address] [place] [address] Nurse Practitioner Family Medicine 10/24/23 10/21/24 Kandace Harvey NP [address] [place] [address] Nurse Practitioner Family Medicine 10/24/23 12/16/24 Marcellus Valenzuela DO [address] [place] [address] Referring Physician Family Medicine 05/29/24 02/16/25 documented as of this encounter
--- OUTSIDE RECORDS SUMMARY | 2025-04-09 08:19 | XMS_ITS | Encounter Summary ---
Author Organization [facility] Address [address] [place] [address] Care Team Providers Care Transfusion Aide Name Role Phone Jayy Guzman MD Primary Care Provider [phone] Jayy Guzman MD Unavailable [phone] Zo Tavarez NEWS COPY EDITOR Unavailable Marely Seals NP Unavailable Kandace Harvey GARBAGE DEPOT WORKER Unavailable [phone] Jayy Guzman MD Unavailable [phone] Marcellus Valenzuela DO Unavailable [phone] Marcellus Valenzuela DO Primary Care Provider [phone] Marcellus Valenzuela DO Primary Care Provider [phone] Encounter Details Date Type Department Care Team [...] 1:20 PM EDT Office Visit [facility] [address], [address] [place] [address] Marcellus Valenzuela DO [address] [facility] [address] [place] [address] documented as of this encounter Procedures Procedure [...] SKELETON: There are no hypermetabolic osseous lesions. Security Analyst (topogram) images:No additional findings. IMPRESSION: 1. Neck: [...] any questions regarding this interpretation, please call [phone]. If you are unable to reach us at the number above, please feel free to contact [facility] at [phone]. [id number]^[email or web address]^SI^ACN * * *Final Report* * * DATE [...] SKELETON: There are no hypermetabolic osseous lesions. Security Analyst (topogram) images:No additional findings. IMPRESSION: 1. Neck: [...] any questions regarding this interpretation, please call [phone]. If you are unable to reach us at the number above, please feel free to contact [facility] at [phone]. [id number]^[email or web address]^SI^ACN * * *Final Report* * * DATE [...] SKELETON: There are no hypermetabolic osseous lesions. Security Analyst (topogram) images:No additional findings. IMPRESSION: 1. Neck: [...] any questions regarding this interpretation, please call [phone]. If you are unable to reach us at the number above, please feel free to contact [facility] at [phone]. [id number]^[email or web address]^SI^ACN Procedure Note Radiology, Radiologist, - 12/24/2022 * [...] SKELETON: There are no hypermetabolic osseous lesions. Security Analyst (topogram) images:No additional findings. IMPRESSION: 1. Neck: [...] any questions regarding this interpretation, please call [phone]. If you are unable to reach us at the number above, please feel free to contact [facility] at [phone]. [id number]^[email or web address]^SI^ACN * * *Final Report* * * DATE [...] SKELETON: There are no hypermetabolic osseous lesions. Security Analyst (topogram) images:No additional findings. IMPRESSION: 1. Neck: [...] any questions regarding this interpretation, please call [phone]. If you are unable to reach us at the number above, please feel free to contact [facility] at [phone]. [id number]^[email or web address]^SI^ACN * * *Final Report* * * DATE [...] SKELETON: There are no hypermetabolic osseous lesions. Security Analyst (topogram) images:No additional findings. IMPRESSION: 1. Neck: [...] any questions regarding this interpretation, please call [phone]. If you are unable to reach us at the number above, please feel free to contact [facility] at [phone]. [id number]^AGFA_IDC^SI^ACN Jayy Guzman MD [facility] Final Result documented in this encounter Visit Diagnoses Not on filedocumented in this encounter Care Teams Transfusion Aide Relationship Specialty Start Date End Date Jayy Guzman MD [address] [place] [address] PCP - General Family Medicine 12/28/22 12/16/24 Jayy Guzman MD [address] [place] [address] PCP - Carolynn KEN 01/19/23 06/20/23 Jayy Guzman MD [address] [place] [address] PCP - Carolynn KEN 02/20/24 Marcellus Valenzuela DO [address] [place] [address] PCP - General Family Medicine 12/17/24 02/16/25 Marcellus Valenzuela DO [address] [place] [address] PCP - General Family Medicine 02/17/25 Zo Tavarez LSW [address] [place] [address] Platform Beater Family Medicine 02/22/23 Marely Seals NP [address] [place] [address] Nurse Practitioner Family Medicine 10/24/23 10/21/24 Kandace Harvey, GARBAGE DEPOT WORKER [address] [place] [address] Nurse Practitioner Family Medicine 10/24/23 12/16/24 Marcellus Valenzuela DO [address] [place] [address] Referring Physician Family Medicine 05/29/24 02/16/25 documented as of this encounter
--- OUTSIDE RECORDS SUMMARY | 2025-04-09 08:19 | XMS_ITS | Encounter Summary ---
Author Organization [facility] Address [address] [facility] [place] [address] Care Team Providers Care Watch Parts Grinder Name Role Phone DaysiZo PEDRO Unavailable Jayy Guzman MD Unavailable [phone] Marcellus Valenzuela DO Unavailable [phone] Marcellus Valenzuela DO Primary Care Provider [phone] Marcellus Valenzuela DO Primary Care Provider [phone] Encounter Details Date Type Department Care Team (Late st Contact Info) Description 01/07/2025 Abstract [facility] [place] [address] [place] [address] Marcellus Valenzuela DO [address] [address] [place] [address] Social History Tobacco Use Types Packs/Day Years [...] Family Practice [address], [facility] 340 [place] [address] Marcellus Valenzuela DO [address] [place] [address] documented as of this encounter Visit Diagnoses Not on filedocumented in this encounter Additional Health Concerns Assessment Noted Time PHQ-9 Depression Total Score: 10 024 10:00 AM EDT documented as of this encounter Care Teams Watch Parts Grinder Relationship Specialty Start Date End Date Jayy Guzman MD [address] [place] [address] PCP - Carolynn KEN 02/20/24 Marcellus Valenzuela DO [address] [place] [address] PCP - General Family Medicine 12/17/24 02/16/25 Marcellus Valenzuela DO [address] [place] [address] PCP - General Family Medicine 02/17/25 Zo Tavarez LSW [address] [place] [address] Valve Grinder Family Medicine 02/22/23 Marcellus Valenzuela DO [address] [place] [address] Referring Physician Family Medicine 05/29/24 02/16/25 documented as of this encounter
--- OUTSIDE RECORDS SUMMARY | 2025-04-09 08:19 | XMS_ITS | Encounter Summary ---
Author Organization [facility] Address [address] [facility] [place] [place] [address] Care Team Providers Care Fire Hydrant Operator Name Role Phone Jayy Guzman MD Primary Care Provider [phone] Zo Tavarez ACADEMIC PROGRAM SPECIALIST Unavailable Kandace Harvey CROP ROLLER Unavailable [phone] Jayy Guzman MD Unavailable [phone] Marcellus Valenzuela DO Unavailable [phone] Marcellus Valenzuela DO Primary Care Provider [phone] Marcellus Valenzuela DO Primary Care Provider [phone] Encounter Details Date Type Department Care Team (Late st Contact Info) Description 12/09/2024 Orders Only [facility] [address] [place] [phone] Kenyetta Murray, TIM-SDS Social History Tobacco Use [...] any clubs o r organizations such as latter-day groups, unions, fraternal or athletic groups, or [...] Recorded Patient Health Questionnaire-2 Score 2 11/09/2024 [facility] of Occupat ional Health [...] Family Practice [address], [facility] 340 [place] [address] Marcellus Valenzuela DO [address] [place] [address] documented as of this encounter Visit Diagnoses Not on filedocumented in this encounter Additional Health Concerns Assessment Noted Time PHQ-9 Depression Total Score: 10 024 10:00 AM EDT documented as of this encounter Care Teams Fire Hydrant Operator Relationship Specialty Start Date End Date Jayy Guzman MD [address] [place] [address] PCP - General Family Medicine 12/28/22 12/16/24 Jayy Guzman MD [address] [place] [address] PCP - Carolynn KEN 02/20/24 Marcellus Valenzuela DO [address] [place] [address] PCP - General Family Medicine 12/17/24 02/16/25 Marcellus Valenzuela DO [address] [place] [address] PCP - General Family Medicine 02/17/25 Zo Tavarez LSW [address] [place] [address] Dentistry Teacher Family Medicine 02/22/23 Kandace Harvey NP [address] [place] [address] Nurse Practitioner Family Medicine 10/24/23 12/16/24 Marcellus Valenzuela DO [address] [place] [address] Referring Physician Family Medicine 05/29/24 02/16/25 documented as of this encounter
--- OUTSIDE RECORDS SUMMARY | 2025-04-09 08:20 | XMS_ITS | Encounter Summary ---
Author Organization [facility] Address [address] [place] [address] Care Team Providers Care Rubber Splicer Name Role Phone Jayy Guzman MD Primary Care Provider [phone] Zo Tavarez GRINDER SET UP OPERATOR CENTERLESS Unavailable Marely Seals NP Unavailable Kandace Harvey BUS TROLLEY AND TAXI INSTRUCTOR Unavailable [phone] Jayy Guzman MD Unavailable [phone] Marcellus Valenzuela DO Unavailable [phone] Marcellus Valenzuela DO Primary Care Provider [phone] Marcellus Valenzuela DO Primary Care Provider [phone] Encounter Details Date Type Department Care Team (Late st Contact Info) Description 06/26/2023 Abstract [facility] [place] [address] [place] [address] Jayy Guzman MD [address] [place] [address] Social History Tobacco Use Types Packs/Day Years [...] Recorded Patient Health Questionnaire-2 Score 0 01/28/2023 [facility] of Occupat ional Health - Occupational Stress [...] Family Practice [address], [facility] 340 [place] [address] Marcellus Valenzuela DO [address] [facility] 340 [place] [address] documented as of this encounter Visit Diagnoses Not on filedocumented in this encounter Care Teams Rubber Splicer Relationship Specialty Start Date End Date Jayy Guzman MD [address] [place] [address] PCP - General Family Medicine 12/28/22 12/16/24 Jayy Guzman MD [address] [place] [address] PCP - Carolynn KEN 02/20/24 Marcellus Valenzuela DO [address] [place] [address] PCP - General Family Medicine 12/17/24 02/16/25 Marcellus Valenzuela DO [address] [place] [address] PCP - General Family Medicine 02/17/25 Zo Tavarez LSW [address] [place] [address] Tripe Washer Family Medicine 02/22/23 Marely Seals NP [address] [place] [address] Nurse Practitioner Family Medicine 10/24/23 10/21/24 Kandace Harvey NP [address] [place] [address] Nurse Practitioner Family Medicine 10/24/23 12/16/24 Marcellus Valenzuela DO [address] [place] [address] Referring Physician Family Medicine 05/29/24 02/16/25 documented as of this encounter
--- OUTSIDE RECORDS SUMMARY | 2025-04-09 08:20 | XMS_ITS | Encounter Summary ---
Author Organization [facility] Address [address] [place] [address] Phone Care Team Providers Care Psychiatric Therapist Name Role Phone Jayy Guzman MD Primary Care Provider [phone] Encounter Details Date Type Department Care Team (Late st Contact Info) Description 05/11/2024 Scanned Document [facility] [address] [place] [address] Scanning, Generic Provider Social History Tobacco Use [...] on filedocumented in this encounter Care Teams Psychiatric Therapist Relationship Specialty Start Date End Date Jayy Guzman MD [address] [place] [address] PCP - General 03/01/15 documented as of this encounter
--- OUTSIDE RECORDS SUMMARY | 2025-04-09 08:20 | XMS_ITS | Encounter Summary ---
Author Organization [facility] Address [address] [place] [address] Care Team Providers Care Counselor Marriage And Family Name Role Phone Jayy Guzman MD Primary Care Provider [phone] Jie Johnson APRN.PROGRAM AIDE GROUP WORK Unavailable [phone] Jayy Parker MD Unavailable Unavail able Roxana Wagner RN Unavailable [phone] Source Comments In the event this information is protected by the Federal Confidentiality of Alcohol and Drug AbusePatient Records regulations: The Federal rules restrict any use of the information to criminally investigate or prosecute any alcohol or drug abuse patient.[facility] Encounter Details Date Type Department Care [...] on filedocumented in this encounter Care Teams Counselor Marriage And Family Relationship Specialty Start Date End Date Jayy Guzman MD [address] [place] [address] PCP - General 09/01/09 Jie Johnson APRN.PROGRAM AIDE GROUP WORK [address] [place] [address] Nurse Practitioner Hematology/Oncology 01/16/23 Jayy Parker MD [address] [address] Physician Hematology/Oncology 01/16/23 01/25/25 Roxana Wagner, LIU [address] [place] [address] Specialty Potato Chip Packaging Machine Operator Hematology/Oncology 01/16/23 documented as of this encounter
--- OUTSIDE RECORDS SUMMARY | 2025-04-09 08:20 | XMS_ITS | Encounter Summary ---
Author Organization [facility] Address [address] [place] [address] Phone Care Team Providers Care Physical Education Department Chair Name Role Phone Jayy Guzman MD Primary Care Provider [phone] Encounter Details Date Type Department Care Team (Late st Contact Info) Description 05/25/2024 Scanned Document [facility] [address] [place] [address] Scanning, Generic Provider Social History Tobacco Use [...] on filedocumented in this encounter Care Teams Physical Education Department Chair Relationship Specialty Start Date End Date Jayy Guzman MD [address] [place] [address] PCP - General 03/01/15 documented as of this encounter
--- OUTSIDE RECORDS SUMMARY | 2025-04-09 08:20 | XMS_ITS | Encounter Summary ---
Author Organization [facility] Address [address] [facility] [place] [address] Care Team Providers Care Leather Production Artisan Name Role Phone Jayy Guzman MD Primary Care Provider [phone] Zo Tavarez PRODUCTION PLANNING MANAGER Unavailable Marely Seals NP Unavailable Kandace Harvey FLY FINISHER Unavailable [phone] Jayy Guzman MD Unavailable [phone] Marcellus Valenzuela DO Unavailable [phone] Marcellus Valenzuela DO Primary Care Provider [phone] Marcellus Valenzuela DO Primary Care Provider [phone] Encounter Details Date Type Department Care Team (Late st Contact Info) Description 07/26/2023 [facility] [place] [facility] [address] [place] [address] Laura Klein MA Social History Tobacco Use [...] Recorded Patient Health Questionnaire-2 Score 0 01/28/2023 [facility] of Occupat ional Health - Occupational [...] PM EDT Office Visit [facility] [place] [facility] [address], [facility] 340 [place] [address] Marcellus Valenzuela DO [address] [place] [address] documented as of this encounter Visit Diagnoses Not on filedocumented in this encounter Care Teams Leather Production Artisan Relationship Specialty Start Date End Date Jayy Guzman MD [address] [place] [address] PCP - General Family Medicine 12/28/22 12/16/24 Jayy Guzman MD [address] [place] [address] PCP - Carolynn KEN 02/20/24 Marcellus Valenzuela DO [address] [place] [address] PCP - General Family Medicine 12/17/24 02/16/25 Marcellus Valenzuela DO [address] [place] [place] [address] PCP - General Family Medicine 02/17/25 Zo Tavarez LSW [address] [place] [address] Planner Family Medicine 02/22/23 Marely Seals NP [address] [place] [address] Nurse Practitioner Family Medicine 10/24/23 10/21/24 Kandace Harvey NP [address] [place] [address] Nurse Practitioner Family Medicine 10/24/23 12/16/24 Marcellus Valenzuela DO [address] [place] [address] Referring Physician Family Medicine 05/29/24 02/16/25 documented as of this encounter
--- OUTSIDE RECORDS SUMMARY | 2025-04-09 08:20 | XMS_ITS | Encounter Summary ---
Author Organization [facility] Address [address] [place] [address] Care Team Providers Care Dentist/Owner Name Role Phone Jayy Guzman MD Primary Care Provider [phone] Jie Johnson APRN.STAND UP FORKLIFT OPERATOR Unavailable [phone] Jayy Parker MD Unavailable Unavail able Roxana Wagner RN Unavailable [phone] Source Comments In the event this information is protected by the Federal Confidentiality of Alcohol and Drug AbusePatient Records regulations: The Federal rules restrict any use of the information to criminally investigate or prosecute any alcohol or drug abuse patient.[facility] Encounter Details Date Type Department Care [...] risk 6 12/13/2022 Data from: https://www.neighborhoodatlas.medicine.[facility].edu/. Last address used for calculation [address] [place] [address] [address] 12/13/2022 Comments No Sex and [...] on filedocumented in this encounter Care Teams Dentist/Owner Relationship Specialty Start Date End Date Jayy Guzman MD [address] [place] [address] PCP - General 09/01/09 Jie Johnson, PAUL.STAND UP FORKLIFT OPERATOR [address] [address] Nurse Practitioner Hematology/Oncology 01/16/23 Jayy Parker MD [address] [address] Physician Hematology/Oncology 01/16/23 01/25/25 Roxana Wagner, RN [address] [address] Specialty Supervisor Grinding Hematology/Oncology 01/16/23 documented as of this encounter
--- OUTSIDE RECORDS SUMMARY | 2025-04-09 08:20 | XMS_ITS | Encounter Summary ---
Author Organization [facility] Address [address] [place] [address] Care Team Providers Care Airplane Pilot Supervisor Name Role Phone Jayy Guzman MD Primary Care Provider [phone] Jayy Guzman MD Unavailable [phone] Zo Tavarez THEATER TEACHER Unavailable Marely Seals NP Unavailable Kandace Harvey LINE CONSTRUCTION SUPERINTENDENT Unavailable [phone] Jayy Guzman MD Unavailable [phone] Marcellus Valenzuela DO Unavailable [phone] Marcellus Valenzuela DO Primary Care Provider [phone] Marcellus Valenzuela DO Primary Care Provider [phone] Encounter Details Date Type Department Care Team (Late st Contact Info) Description 05/16/2023 [facility] [place] [facility] [address] [place] [address] Jayy Guzman MD [address] [place] [address] Social History Tobacco Use Types Packs/Day Years [...] Recorded Patient Health Questionnaire-2 Score 0 01/28/2023 [facility] [place] of Occupat ional Health - Occupational Stress [...] [address], [address] [place] [address] Marcellus Valenzuela DO [address] [place] [address] documented as of this encounter Visit Diagnoses Not on filedocumented in this encounter Care Teams Airplane Pilot Supervisor Relationship Specialty Start Date End Date Jayy Guzman MD [address] [place] [address] PCP - General Family Medicine 12/28/22 12/16/24 Jayy Guzman MD [address] [place] [address] PCP - Carolynn KEN 01/19/23 06/20/23 Jayy Guzman MD [address] [place] [address] PCP - Carolynn KEN 02/20/24 Marcellus Valenzuela DO [address] [place] [address] PCP - General Family Medicine 12/17/24 02/16/25 Marcellus Valenzuela DO [address] [place] [address] PCP - General Family Medicine 02/17/25 Zo Tavarez LSW [address] [place] [address] Superintendent Gas Distribution Family Medicine 02/22/23 Marely Seals NP [address] [place] [address] Nurse Practitioner Family Medicine 10/24/23 10/21/24 Kandace Harvey NP [address] [place] [address] Nurse Practitioner Family Medicine 10/24/23 12/16/24 Marcellus Valenzuela DO [address] [place] [address] Referring Physician Family Medicine 05/29/24 02/16/25 documented as of this encounter
--- OUTSIDE RECORDS SUMMARY | 2025-04-09 08:20 | XMS_ITS | Encounter Summary ---
Author Organization [facility] Address [address] [place] [address] Care Team Providers Care Histology Assistant Name Role Phone Jayy Guzman MD Primary Care Provider [phone] Jayy Guzman MD Unavailable [phone] Zo Tavarez RESEARCH TECHNICIAN Unavailable Marely Seals NP Unavailable Kandace Harvey DIRECTOR OF SPEECH PATHOLOGY Unavailable [phone] Jayy Guzman MD Unavailable [phone] Marcellus Valenzuela DO Unavailable [phone] Marcellus Valenzuela DO Primary Care Provider [phone] Marcellus Valenzuela DO Primary Care Provider Encounter Details Date Type Department Care Team (Late st Contact Info) Description 12/21/2022 Clinisync Result Encounter [facility] External Department Unsolicited Jayy Guzman MD [address] [place] [address] Social History Tobacco Use Types Packs/Day Years [...] Description 04/27/2025 1:20 PM EDT [facility] [address], [facility] 340 [place] [address] Nicolas, Marcellus, DO [address] [place] [address] documented as of this encounter Procedures Procedure [...] QTC Calculation(Bazett) : 455 ms Calculated P Sarver : 71 degrees Calculated R Sarver : 26 degrees Calculated T Sarver : 142 degrees SINUS BRADYCARDIA RIGHT ATRIAL ENLARGEMENT LEFT VENTRICULAR HYPERTROPHY WITH REPOLARIZATION ABNORMALITY ABNORMAL ECG Confirmed by TIMOTHY ARIAS M.D. ([id number]) on 12/26/2022 12:52:40 PM NAME : CLEMENTINA ACUNA PID : [id number] : 1950 Gender : Female Race : ORD : Procedure Date : Dec 21 2022 11:51:18 Edit Date : Dec 26 2022 12:56:19 Diagnosis: SINUS BRADYCARDIA RIGHT ATRIAL ENLARGEMENT LEFT VENTRICULAR HYPERTROPHY WITH REPOLARIZATION ABNORMALITY ABNORMAL ECG Confirmed by TIMOTHY ARIAS M.D. ([id number]) on 12/26/2022 12:52:40 PM Test Reason : [place] : [place] [facility] [place] By : TIMOTHY ARIAS M.D. Edited By : TIMOTHY ARIAS M.D. Referred By : FINA ARNOLD Acquired by : SCOOBY Procedure Note Radiology, Radiologist, - 12/26/2022 Ventricular Rate : 58 BPM Atrial Rate : 58 BPM P-R Interval : 146 ms QRS Duration : 84 ms Q-T Interval : 464 ms QTC Calculation(Bazett) : 455 ms Calculated P Sarver : 71 degrees Calculated R Sarver : 26 degrees Calculated T Sarver : 142 degrees SINUS BRADYCARDIA RIGHT ATRIAL ENLARGEMENT LEFT VENTRICULAR HYPERTROPHY WITH REPOLARIZATION ABNORMALITY ABNORMAL ECG Confirmed by TIMOTHY ARIAS M.D. ([id number]) on 12/26/2022 12:52:40 PM NAME : CLEMENTINA ACUNA PID : [id number] : 1950 Gender : Female Race : ORD : Procedure Date : Dec 21 2022 11:51:18 Edit Date : Dec 26 2022 12:56:19 Diagnosis: SINUS BRADYCARDIA RIGHT ATRIAL ENLARGEMENT LEFT VENTRICULAR HYPERTROPHY WITH REPOLARIZATION ABNORMALITY ABNORMAL ECG Confirmed by TIMOTHY ARIAS M.D. ([id number]) on 12/26/2022 12:52:40 PM Test Reason : [place] : [place] [facility] [place] By : TIMOTHY ARIAS M.D. Edited By : TIMOTHY ARIAS M.D. Referred By : FINA ARNOLD Acquired by : SCOOBY, Jayy Guzman MD [facility] Final Result documented in this encounter Visit Diagnoses Not on filedocumented in this encounter Care Teams Histology Assistant Relationship Specialty Start Date End Date Jayy Guzman MD [address] [place] [address] PCP - General Family Medicine 12/28/22 12/16/24 Jayy Guzman MD [address] [place] [address] PCP - Carolynn KEN 01/19/23 06/20/23 Jayy Guzman MD [address] [place] [address] PCP - Carolynn KEN 02/20/24 Marcellus Valenzuela DO [address] [place] [address] PCP - General Family Medicine 12/17/24 02/16/25 Marcellus Valenzuela DO [address] [place] [address] PCP - General Family Medicine 02/17/25 Zo Tavarez LSW [address] [place] [address] Blind Lacer Family Medicine 02/22/23 Marely Seals NP [address] [place] [address] Nurse Practitioner Family Medicine 10/24/23 10/21/24 Kandace Harvey DIRECTOR OF SPEECH PATHOLOGY [address] [place] [address] Nurse Practitioner Family Medicine 10/24/23 12/16/24 Marcellus Valenzuela DO [address] [place] [address] Referring Physician Family Medicine 05/29/24 02/16/25 documented as of this encounter
--- OUTSIDE RECORDS SUMMARY | 2025-04-09 08:20 | XMS_ITS | Encounter Summary ---
Author Organization [facility] Address [address] [place] [address] Care Team Providers Care Narcotics Investigator Name Role Phone Jayy Guzman MD Primary Care Provider [phone] Jayy Guzman MD Unavailable [phone] Zo Tavarez CONTRACT FORESTER Unavailable Marely Seals NP Unavailable Kandace Harvey RESIDENTIAL TECH Unavailable [phone] Jayy Guzman MD Unavailable [phone] Marcellus Valenzuela DO Unavailable [phone] Marcellus Valenzuela DO Primary Care Provider [phone] Marcellus Valenzuela DO Primary Care Provider [phone] Encounter Details Date Type Department Care Team [...] Recorded Patient Health Questionnaire-2 Score 0 01/28/2023 [facility] of Occupat ional Health - Occupational Stress [...] a penitentiary (including now)? No 04/15/2023 Comments Unknown Sex [...] 1:20 PM EDT Office Visit [facility] [address], [address] [place] [address] NicolasMarcellus, DO [address] [place] [address] documented as of this encounter Procedures Procedure [...] chest CT performed will be reported separately. Office Equipment Mechanic (topogram) images: Median sternotomy wires. IMPRESSION: 1. [...] any questions regarding this interpretation, please call [phone]. If you are unable to reach us at the number above, please feel free to contact [facility] at [phone]. [id number]^[email or web address]^ACN Procedure Note Radiology, Radiologist, - 04/16/2023 * [...] chest CT performed will be reported separately. Office Equipment Mechanic (topogram) images: Median sternotomy wires. IMPRESSION: 1. [...] any questions regarding this interpretation, please call [phone]. If you are unable to reach us at the number above, please feel free to contact [facility] at [phone]. [id number]^[email or web address]^SI^ACN us Generic External Data Provider [facility] Final Result documented in this encounter Visit Diagnoses Not on filedocumented in this encounter Care Teams Narcotics Investigator Relationship Specialty Start Date End Date Jayy Guzman MD [address] [place] [address] PCP - General Family Medicine 12/28/22 12/16/24 Jayy Guzman MD [address] [place] [address] PCP - Carolynn KEN 01/19/23 06/20/23 Jayy Guzman MD [address] [place] [address] PCP - Carolynn KEN 02/20/24 Marcellus Valenzuela DO [address] [place] [address] PCP - General Family Medicine 12/17/24 02/16/25 Marcellus Valenzuela DO [address] [place] [address] PCP - General Family Medicine 02/17/25 Zo Tavarez LSW [address] [place] [address] Inseamer Family Medicine 02/22/23 Marely Seals NP [address] [place] [address] Nurse Practitioner Family Medicine 10/24/23 10/21/24 Kandace Harvey, LANETTE [address] [place] [address] Nurse Practitioner Family Medicine 10/24/23 12/16/24 Marcellus Valenzuela DO [address] [place] [address] Referring Physician Family Medicine 05/29/24 02/16/25 documented as of this encounter
--- OUTSIDE RECORDS SUMMARY | 2025-04-09 08:20 | XMS_ITS | Encounter Summary ---
Author Organization [facility] Address [address] [place] [address] Phone Care Team Providers Care Electroless Plater Name Role Phone Jayy Guzman MD Primary Care Provider [phone] Encounter Details Date Type Department Care Team (Late st Contact Info) Description 05/12/2024 Scanned Document [facility] [address] [place] [address] Scanning, Generic Provider Social History Tobacco Use [...] on filedocumented in this encounter Care Teams Electroless Plater Relationship Specialty Start Date End Date Jayy Guzman MD [address] [place] [address] PCP - General 03/01/15 documented as of this encounter
--- OUTSIDE RECORDS SUMMARY | 2025-04-09 08:20 | XMS_ITS | Encounter Summary ---
Author Organization [facility] Address [address] [place] [address] Care Team Providers Care Client Experience Manager Name Role Phone aJyy Guzman MD Primary Care Provider [phone] Zo Tavarez PROGRAM DIRECTOR Unavailable Marely Seals NP Unavailable Kandace Harvey CURATOR OF COLLECTIONS Unavailable [phone] Jayy Guzman MD Unavailable [phone] Marcellus Valenzuela DO Unavailable [phone] Marcellus Valenzuela DO Primary Care Provider [phone] Marcellus Valenzuela DO Primary Care Provider [phone] Encounter Details Date Type Department Care Team (Late st Contact Info) Description 08/13/2023 Abstract [facility] [address] [place] [address] Jayy Guzman MD [address] [place] [address] Social History Tobacco Use Types Packs/Day Years [...] Recorded Patient Health Questionnaire-2 Score 0 01/28/2023 [facility] [place] of Occupat ional Health - Occupational Stress [...] Family Practice [address], [facility] [address] [place] [address] Marcellus Valenzuela DO [address] [facility] 340 [place] [address] documented as of this encounter Visit Diagnoses Not on filedocumented in this encounter Care Teams Client Experience Manager Relationship Specialty Start Date End Date Jayy Guzman MD [address] [place] [address] PCP - General Family Medicine 12/28/22 12/16/24 Jayy Guzman MD [address] [place] [address] PCP - Carolynn KEN 02/20/24 Marcellus Valenzuela DO [address] [place] [address] PCP - General Family Medicine 12/17/24 02/16/25 Marcellus Valenzuela DO [address] [place] [address] PCP - General Family Medicine 02/17/25 Zo Tavarez LSW [address] [place] [address] Court Operations Clerk Family Medicine 02/22/23 Marely Seals NP [address] [place] [address] Nurse Practitioner Family Medicine 10/24/23 10/21/24 Kandace Harvey NP [address] [place] [address] Nurse Practitioner Family Medicine 10/24/23 12/16/24 Marcellus Valenzuela DO [address] [place] [address] Referring Physician Family Medicine 05/29/24 02/16/25 documented as of this encounter
--- OUTSIDE RECORDS SUMMARY | 2025-04-09 08:20 | XMS_ITS | Encounter Summary ---
Author Organization [facility] Address [address] [place] [address] Care Team Providers Care Night Court Magistrate Name Role Phone Jayy Guzman MD Primary Care Provider [phone] Jayy Guzman MD Unavailable [phone] Zo Tavarez POWER TRANSFORMER INSPECTOR Unavailable Marely Seals NP Unavailable Kandace Harvey SUPERVISOR DRY CLEANING Unavailable [phone] Jayy Guzman MD Unavailable [phone] Marcellus Valenzuela DO Unavailable [phone] Marcellus Valenzuela DO Primary Care Provider [phone] Marcellus Valenzuela DO Primary Care Provider [phone] Encounter Details Date Type Department Care Team (Late st Contact Info) Description 06/04/2023 [facility] [address] [place] [address] Jayy Guzman MD [address] [place] [address] Social History Tobacco Use Types Packs/Day Years [...] Patient Health Questionnaire-2 Score 0 01/28/2023 [facility] [place] of Occupat ional Health - Occupational [...] PM EDT Office Visit [facility] [facility] [address], [address] [place] [address] Marcellus Valenzuela, [address] [place] [address] documented as of this encounter Visit Diagnoses Not on filedocumented in this encounter Care Teams Night Court Magistrate Relationship Specialty Start Date End Date Jayy Guzman MD [address] [place] [address] PCP - General Family Medicine 12/28/22 12/16/24 Jayy Guzman MD [address] [place] [id number] PCP - Carolynn KEN 01/19/23 06/20/23 Jayy Guzman MD [address] [place] [address] PCP - Carolynn KEN 02/20/24 Marcellus Valenzuela DO [address] [place] [address] PCP - General Family Medicine 12/17/24 02/16/25 Marcellus Valenzuela DO [address] [place] [address] PCP - General Family Medicine 02/17/25 Zo Tavarez LSW [address] [place] [address] Pipe Organ Installer Family Medicine 02/22/23 Marely Seals NP [address] [place] [address] Nurse Practitioner Family Medicine 10/24/23 10/21/24 Kandace Harvey NP [address] [place] [address] Nurse Practitioner Family Medicine 10/24/23 12/16/24 Marcellus Valenzuela DO [address] [place] [address] Referring Physician Family Medicine 05/29/24 02/16/25 documented as of this encounter
--- OUTSIDE RECORDS SUMMARY | 2025-04-09 08:20 | XMS_ITS | Encounter Summary ---
Author Organization [facility] Address [address] [place] [address] Care Team Providers Care Automobile Upholsterer Name Role Phone Jayy Guzman MD Primary Care Provider [phone] Zo Tavarez WINDOW GLAZIER HELPER Unavailable Marely Seals NP Unavailable Kandace Harvey SNOW BLOWER Unavailable [phone] Jayy Guzman MD Unavailable [phone] Marcellus Valenzuela DO Unavailable [phone] Marcellus Valenzuela DO Primary Care Provider [phone] Marcellus Valenzuela DO Primary Care Provider [phone] Encounter Details Date Type Department Care Team [...] 04/15/2023 How often do you attend [facility] or [facility] services? Patient declined 04/15/2023 Do you belong [...] Recorded Patient Health Questionnaire-2 Score 0 01/28/2023 [facility] of Occupat ional Health - Occupational [...] 1:20 PM EDT Office Visit [facility] [address], [address] [place] [address] Marcellus Valenzuela DO [address] [place] [address] documented as of this encounter Procedures Procedure [...] DATE OF EXAM: Jul 12 2023 2:17PM [facility] 0539 - CT CHEST W IVCON / [...] Right-sided nonobstructive nephrolithiasis, cholelithiasis is again noted. Heating And Cooling Technician (topogram) images: No additional findings. IMPRESSION: 1. [...] any questions regarding this interpretation, please call [phone]. If you are unable to reach us at the number above, please feel free to contact [facility] at [phone]. [id number]^[email or web address]^SI^ACN Procedure Note Radiology, Radiologist, MD - 07/16/2023 * * *Final Report* * * DATE OF EXAM: Jul 12 2023 2:17PM [facility] 0539 - CT CHEST W IVCON / [...] Right-sided nonobstructive nephrolithiasis, cholelithiasis is again noted. Heating And Cooling Technician (topogram) images: No additional findings. IMPRESSION: 1. [...] any questions regarding this interpretation, please call [phone]. If you are unable to reach us at the number above, please feel free to contact [facility] at [phone]. [id number]^[email or web address]^SI^ACN us Generic External Data Provider IMG CT PROCEDURES Final Result documented in this encounter Visit Diagnoses Not on filedocumented in this encounter Care Teams Automobile Upholsterer Relationship Specialty Start Date End Date Jayy Guzman MD [address] [place] [address] PCP - General Family Medicine 12/28/22 12/16/24 Jayy Guzman MD [address] [place] [address] PCP - Carolynn KEN 02/20/24 Marcellus Valenzuela DO [address] [place] [address] PCP - General Family Medicine 12/17/24 02/16/25 Marcellus Valenzuela DO [address] [place] [address] PCP - General Family Medicine 02/17/25 Zo Tavarez LSW [address] [place] [address] Clam Grower Family Medicine 02/22/23 Marely Seals NP [address] [place] [address] Nurse Practitioner Family Medicine 10/24/23 10/21/24 Kandace Harvey NP [address] [place] [address] Nurse Practitioner Family Medicine 10/24/23 12/16/24 Marcellus Valenzuela DO [address] [place] [address] Referring Physician Family Medicine 05/29/24 02/16/25 documented as of this encounter
--- OUTSIDE RECORDS SUMMARY | 2025-04-09 08:20 | XMS_ITS | Encounter Summary ---
Author Organization [facility] Address [address] [place] [address] Care Team Providers Care Drafter Commercial Name Role Phone Jayy Guzman MD Primary Care Provider [phone] Jie Johnson APRN.MANAGER PACKAGE Unavailable [phone] Jayy Parker MD Unavailable Unavail able Roxana Wagner RN Unavailable [phone] Source Comments In the event this information is protected by the Federal Confidentiality of Alcohol and Drug AbusePatient Records regulations: The Federal rules restrict any use of the information to criminally investigate or prosecute any alcohol or drug abuse patient.[facility] Encounter Details Date Type Department [...] is lower risk 6 12/13/2022 Data from: https://www.neighborhoodatlas.medicine.[facility].edu/. Last address used for calculation [address] [place] [address] [address] 12/13/2022 Comments No Sex and [...] on filedocumented in this encounter Care Teams Drafter Commercial Relationship Specialty Start Date End Date Jayy Guzman MD [address] [place] [address] PCP - General 09/01/09 Jie Johnson, PAUL.MANAGER PACKAGE [address] [address] Nurse Practitioner Hematology/Oncology 01/16/23 Jayy Parker MD [address] [address] Physician Hematology/Oncology 01/16/23 01/25/25 Roxana Wagner, RN [address] [place] [address] Specialty Medical Insurance Verifier Hematology/Oncology 01/16/23 documented as of this encounter
--- OUTSIDE RECORDS SUMMARY | 2025-04-09 08:20 | XMS_ITS | Encounter Summary ---
Author Organization [facility] Address [address] [place] [address] Care Team Providers Care Paper Bag Inspector Name Role Phone Jayy Guzman MD Primary Care Provider [phone] Jayy Guzman MD Unavailable [phone] Zo Tavarez PEOPLESOFT HCM DEVELOPER Unavailable Marely Seals NP Unavailable Kandace Harvey CERTIFIED PEDORTHOTIST Unavailable [phone] Jayy Guzman MD Unavailable [phone] Marcellus Valenzuela DO Unavailable [phone] Marcellus Valenzuela DO Primary Care Provider [phone] Marcellus Valenzuela DO Primary Care Provider [phone] Encounter Details Date Type Department Care Team [...] Recorded Patient Health Questionnaire-2 Score 0 01/28/2023 [facility] of Occupat ional Health [...] Description 04/27/2025 1:20 PM EDT [facility] [address], [address] [place] [address] NicolasMarcellus, DO [address] [place] [address] documented as of this encounter Procedures Procedure [...] DATE OF EXAM: Apr 16 2023 9:17AM [facility] 0539 - CT CHEST W [...] was performed and will be reported separately. Hand Buffer (topogram) images: No additional findings. IMPRESSION: 1. [...] any questions regarding this interpretation, please call [phone]. If you are unable to reach us at the number above, please feel free to contact [facility] at [phone]. [id number]^[email or web address]^SI^ACN Procedure Note Radiology, Radiologist, - 04/16/2023 * * *Final Report* * * DATE OF EXAM: Apr 16 2023 9:17AM [facility] 0539 - CT CHEST W [...] was performed and will be reported separately. Hand Buffer (topogram) images: No additional findings. IMPRESSION: 1. [...] any questions regarding this interpretation, please call [phone]. If you are unable to reach us at the number above, please feel free to contact [facility] at [phone]. [id number]^[email or web address]^SI^ACN us Generic External Data Provider IMG CT PROCEDURES Final Result documented in this encounter Visit Diagnoses Not on filedocumented in this encounter Care Teams Paper Bag Inspector Relationship Specialty Start Date End Date Jayy Guzman MD [address] [place] [id number] PCP - General Family Medicine 12/28/22 12/16/24 Jayy Guzman MD [address] [place] [address] PCP - Carolynn KEN 01/19/23 06/20/23 Jayy Guzman MD [address] [place] [address] PCP - Carolynn KEN 02/20/24 Marcellus Valenzuela DO [address] [place] [address] PCP - General Family Medicine 12/17/24 02/16/25 Marcellus Valenzuela DO [address] [place] [address] PCP - General Family Medicine 02/17/25 Zo Tavarez LSW [address] [place] [address] Cold Rolling Coordinator Family Medicine 02/22/23 Marely Seals NP [address] [place] [address] Nurse Practitioner Family Medicine 10/24/23 10/21/24 Kandace Harvey NP [address] [place] [address] Nurse Practitioner Family Medicine 10/24/23 12/16/24 Marcellus Valenzuela DO [address] [place] [address] Referring Physician Family Medicine 05/29/24 02/16/25 documented as of this encounter
[2025-04-09 08:25] LABS: Potassium 5.2 mmol/L (3.5-5.1)
== END 2025-04-09 08:08 | disposition home or self-care (01) ==
LOC: LAB 08:09
PROVIDERS: PCP Family Medicine; Visit Provider Internal Medicine
DX: E87.5 Hyperkalemia (principal)
CPT/HCPCS: 36415; 84132

== ENCOUNTER 2025-06-16 07:51 | Outpatient (REF) | payer MEDICARE, SELFPAY ==
--- OUTSIDE RECORDS SUMMARY | 2025-06-16 07:57 | XMS_ITS | Clinical Summary ---
Author Organization [facility] Address [address] [place] [address] Phone Care Team Providers Care Threader Name Role Phone Jayy Guzman MD Primary Care Provider [phone] Social History Tobacco UseTypesPacks/DayYears UsedDateSmoking Tobacco: Never Assessed CommentsUnknownSex and Gender InformationValueDate RecordedSex Assigned at Not on fileLegal YbdWtpmes65/25/2022 10:58 PM ESTGender IdentityNot on file Sexual OrientationNot on file Last Filed Vital Signs Vital SignReadingTime TakenCommentsBlood Uvjoiqze630/8308/04/2021 11:05 AM EST Cgqag5492/14/2022 11:05 AM TOUOdhjtamkdaa12.3 ??C (97.3 ??F)08/04/2021 11:05 AM ESTRespiratory Pvhe250708/04/2021 11:05 AM ESTOxygen Owakyuodon02%08/04/2021 11:05 AM ESTInhaled Oxygen Concentration--Gxnxju93 kg (174 lb 1 oz)08/04/2021 11:05 AM VORJxylxr400.6 cm (5' 4 )08/04/2021 11:05 AM ESTBody Mass Index29.8808/04/2021 11:05 AM EST Plan of Treatment Health MaintenanceDue DateLast DoneCommentsCT Mlhoupumqqet58/17/1953Colonoscopy 3Colorectal Cancer Sqxvfyjfx02/17/1953FIT-DNA (Cologuard)1952FIT 1952Lipid Panel04/17/1953Medicare Annual Wellness Visit (AWV)1950 Swxwlrypgbviu92/17/1953MMR Vaccines (1 of 1 - Standard series)1953 Hepatitis C Lnovbxedy68/17/1971CKD: Urine Protein Pphxcrnth89/17/1972 Pneumococcal Vaccine (1 of 2 - PCV)11/06/1971DTaP/Tdap/Td Vaccines (1 - Tdap) 11/05/19745935Lutunixlx31/17/1993RSV High Risk: (Elderly (60+) or Population) (1 - Risk 50-74 years 1-dose series)2002Zoster Vaccines (1 of 2)2002Bone Density Scan2017Influenza Vaccine (#1)5COVID-19 Vaccine ( - season)2025HIB VaccinesAged OutNo longer eligible based on patient's age to complete this topicHPV VaccinesAged OutNo longer eligible based on patient's age to complete this topicHepatitis A VaccinesAged OutNo longer eligible based on patient's age to complete this topicHepatitis B VaccinesAged OutNo longer eligible based on patient's age to complete this topic IPV VaccinesAged OutNo longer eligible based on patient's age to complete this topicMeningococcal VaccineAged OutNo longer eligible based on patient's age to complete this topicRotavirus VaccinesAged OutNo longer eligible based on patient's age to complete this topic Insurance Advance Directives For more information, please contact: [phone] (Available ) TypeDate RecordedPatient RepresentativeExplanationHealthcare Power of Atty 1Living Will07/21/2021 Care Teams Team MemberRelationshipSpecialtyStart DateEnd Date Jayy Guzman MD [address] [place] [id number] [facility] - [facility]03/01/15
--- OUTSIDE RECORDS SUMMARY | 2025-06-16 07:57 | XMS_ITS | Encounter Summary ---
Author Organization [facility] Address [address] [address] Care Team Providers Care Material Preparation Worker Name Role Phone Zo Tavarez Unavailable Marcellus Valenzuela DO Primary Care Provider [phone] Marcellus Valenzuela DO Unavailable Encounter Details DateTypeDepartmentCare Team (Latest Contact Info)Wulszhblrgx75/17/2025Patient Outreach [facility] POP[facility] [address] [place] [phone] Zo Tavarez LSW [address] [place] [address] Social History Tobacco UseTypesPacks/DayYears UsedDateSmoking Tobacco: FormerCigarettesQuit: 06/2023Smokeless Tobacco: CurrentSnuffAlcohol UseStandard Drinks/WeekComments Never0 (1 standard drink = 0.6 oz pure alcohol)Humiliation, Afraid, Rape, and Kick questionnaireAnswerDate RecordedWithin the last year, have you been afraid of your partner or ex-partner?No04/15/2023Within the last year, have you been humiliated or emotionally abused in other ways by your partner or ex-partner?No 04/15/2023Within the last year, have you been kicked, hit, slapped, or otherwise physically hurt by your partner or ex-partner?No04/15/2023Within the last year, have you been raped or forced to have any kind of sexual activity by your part ner or ex-partner?No04/15/2023Social Connection and Isolation PanelAnswerDate RecordedIn a typical week, how many times do you talk on the phone with family, friends, or neighbors?Three times a week04/15/2023How often do you get together with friends or relatives?Patient jrjmglul52/25/2023How often do you attend catholic or scientologist services?Patient bfylmgrt25/25/2023o you belong to any clubs or organizations such as catholic groups, unions, fraternal or athletic cristobal ups, or school groups?Patient /25/2023How often do you attend meetings of the clubs or organizations you belong to?Patient perxhrdb86/25/2023re you , , , , never , or living with a partner? Ibipnmn7504/15/2023UDIT-CAnswerDate RecordedQ1: How often do you have a drink containing alcohol?Never02/23/2025Q2: How many drinks containing alcohol do you have on a typical day when you are drinking?Patient does not drink02/23/2025Q3: How often do you have six or more drinks on one occasion?Never02/23/2025Overall Financial Resource Strain (CARDIA)AnswerDate RecordedHow hard is it for you to pay for the very basics like food, housing, medical care, and heating?Not hard at all04/15/2023HQ-2AnswerDate RecordedPatient Health Questionnaire-2 Score0 04/27/2025[facility]uint[facility] Occupational [facility] - Occupational Stress QuestionnaireAnswerDate RecordedDo you feel stress - tense, restless, nervous, or anxious, or unable to sleep at night because yourmind is troubled all the time - these days?Rather much04/15/2023Exercise Vital SignAnswerDate RecordedOn average, how many days per week do you engage in moderate to strenuous exercise (like a brisk walk)?0 days04/15/2023On average, how many minutes do you engage in exercise at this level?0 min04/15/2023Hunger Vital SignAnswerDate Recorded Within the past 12 months, you worried that your food would run out before you got the money to buymore.Never true04/15/2023Within the past 12 months, the food you bought just didn't last and you didn't have money to get more.Never true 04/15/2023RAPARE - TransportationAnswerDate RecordedIn the past 12 months, has lack of transportation kept you from medical appointments or from getting medications?No04/15/2023In the past 12 months, has lack of transportation kept you from meetings, work, or from getting things needed for daily living?No 04/15/2023Housing Stability Vital SignAnswerDate RecordedIn the last 12 months, was there a time when you were not able to pay the mortgage or rent on time?No 04/15/2023In the last 12 months, how many places have you lived?In the last 12 months, was there a time when you did not have a steady place to sleep or slept in ashelter (including now)?No04/15/2023CommentsNoSex and Gender InformationValueDate RecordedSex Assigned at BirthNot on fileLegal Sex Ddrjur5510/03/2022 6:53 PM EDTGender IdentityNot on fileSexual OrientationNot on filedocumented as of this encounter Progress Notes * PEDRO Ramires - 06/07/2025 8:27 AM EST Contacted pt for monthly monitor and she states she is already at dialysis today so cannot talk. Denies any needs at this time and states overall all is well. She is scheduled with Dr. Valenzuela tomorrow. documented in this encounter Plan of Treatment Not on file documented as of this encounter Visit Diagnoses Diagnosis Essential (primary) hypertension- Primary Unspecified essential hypertension Stage 3 chronic kidney disease, unspecified whether stage 3a or 3b CKD ([facility]) documented in this encounter Additional Health Concerns AssessmentNoted TimePHQ-9 Depression Total Score: 16002/23/2025 1:37 PM EDT documented as of this encounter Care Teams Team MemberRelationshipSpecialtyStart DateEnd Date Marcellus Valenzuela DO [address] [place] [address] PCP - GeneralFamily Medicine02/17/25 Marcellus Valenzuela DO [address] [address] PCP - Carolynn KEN04/21/25 Zo Tavarez LSW [address] [place] [address] Social WorkerFamily Medicine02/22/23documented as of this encounter
--- OUTSIDE RECORDS SUMMARY | 2025-06-16 07:57 | XMS_ITS | Clinical Summary ---
Author Organization [facility] Address [address] [place] [address] Care Team Providers Care Workers Compensation Examiner Name Role Phone Jayy Guzman MD Primary Care Provider [phone] Allergies Active AllergyReactionsCriticalityNoted GbdqUwgyvkimXkmgslrlfw19/07/2016 Uyxmorwmsserv96/07/2016Diphth-Acell Pertussis-Cbpkrup4507/28/2015 Medications MedicationSigDispense QuantityRefillsLast FilledStart DateEnd DateStatus Flaxseed, Linseed, (FLAXSEED OIL) 1000 MG Cap take 1,000 mg by mouth.Active Cyanocobalamin (VITAMIN B 12) 250 MCG Lozenge take 250 mcg by mouth.Active clopidogrel 75 MG Tab take 75 mg by mouth daily.Active olmesartan 5 MG Tab take 5 mg by mouth 3 times daily.Active ALPRAZolam 0.5 MG Tab take 0.5 mg by mouth At bedtime as needed for Sleep.Active hydroCODone-acetaminophen 7.5-325 MG Tab take 1 tablet by mouth every 6 hours as needed.Active ezetimibe 10 MG Tab take 10 mg by mouth daily.Active Active Problems ProblemNoted DateDiagnosed DateLeft upper lobe genetics unknown lung agnwjcwbkyomgn24/15/2015 Family History Medical HistoryRelationNameCommentsHypertensionFatherStrokeMotherLung Cancer Sister 1Lung CancerSister 2RelationNameStatusCommentsFatherDeceasedMother DeceasedSister 1AliveSister 2Deceased Social History Tobacco UseTypesPacks/DayYears UsedDateSmoking Tobacco: Every DayCigarettes0.543 Smokeless Tobacco: NeverAlcohol UseStandard Drinks/WeekCommentsYes1 (1 standard drink = 0.6 oz pure alcohol)CommentsUnknownSex and Gender Information ValueDate RecordedSex Assigned at BirthNot on fileLegal ZttJehizw34/28/2015 1:45 PM ESTGender IdentityNot on fileSexual OrientationNot on file Last Filed Vital Signs Vital SignReadingTime TakenCommentsBlood Qgjrjlfs619/90007/28/2015 2:17 PM EST Nvwct981207/28/2015 2:17 PM HDPUlijevuracr01.3 ??C (97.4 ??F)07/28/2015 2:17 PM ESTRespiratory Tdkl171507/28/2015 2:17 PM ESTOxygen Qpolgaqgvr00%07/28/2015 2:17 PM ESTInhaled Oxygen Concentration--Psxlmr02.4 kg (161 lb 12.8 oz)07/28/2015 2:17 PM BGAHttlcj942 cm (5' 2.99 )07/28/2015 2:17 PM ESTBody Mass Index28.67 07/28/2015 2:17 PM EST Plan of Treatment Health MaintenanceDue DateLast DoneCommentsDEXA SCAN DUHVUWGHVM10/17/1953 HEPATITIS C VIRUS YYKCDTINI57/17/1953CERVICAL CANCER SCREENING DISCUSSION 1973LIPID FRQQFIVMH92/17/1993MAMMOGRAM SCREENING TBWPLSKKVW09/17/1993 COLORECTAL CANCER SCREENING TCAJNBMYCL54/17/1998PNEUMOCOCCAL VACCINE SERIES (1 of 1 - PCV)2002ZOSTER (SHINGLES) VACCINE (1 of 2)2002COVID-19 VACCINE (1 - 2024- season)2025INFLUENZA VACCINE (#1)2025RSV VACCINE (1 - 1-dose 75+ series)11/06/2027HEP B VACCINEAged OutNo longer eligible based on patient's age to complete this topic Insurance Care Teams Team MemberRelationshipSpecialtyStart DateEnd Date Jayy Guzman MD [address] [place] [address] PCP - GeneralFabaystate [facility] Medicine07/28/15
--- OUTSIDE RECORDS SUMMARY | 2025-06-16 07:57 | XMS_ITS | Clinical Summary ---
Author Organization [facility] Address [address] [place], [place] [address] Care Team Providers Care Evp General Counsel Name Role Phone Jayy Guzman MD Primary Care Provider [phone] Jie Johnson APRN.DIRECTOR OF GOLF Unavailable [phone] Roxana Wagner RN Unavailable [phone] Allergies Active AllergyReactionsCriticalityNoted RftsMmlliybxQmvuvMtmkpsa79/23/2024 MorphineMental Status VimofhSsde15/18/2010Nitrofuran Yigahnljm07/17/2001Sulfa (Sulfonamide Antibiotics)07/07/2001 Medications MedicationSigDispense QuantityRefillsLast FilledStart DateEnd DateStatus alprazolam(XANAX 0.5 MG TAB) Take one(1) tablet two (2) times daily. 60 ctive nitroglycerin sublingual (NITROQUICK) 0.4 mg SL tablet Dissolve 0.4 mg under the tongue every 5 minutes as needed for chest pain.Active HYDROcodone-Acetaminophen (NORCO) 7.5-325 mg per tablet Take 1 tablet by mouth every 8 hours as needed for pain.Active metoprolol tartrate 75 mg tab Take 75 mg by mouth twice daily.Active furosemide (LASIX) 20 mg tablet Take 20 mg by mouth once daily as needed.10/11/2022ctive amLODIPine (NORVASC) 10 mg tablet Take 1 tablet by mouth every afternoon.04/11/2023ctive predniSONE (DELTASONE) 20 mg tablet Take 2 tablets by mouth once daily. 60 tablet 110/07/2024Active Active Problems ProblemNoted DateDiagnosed Date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, right01/15/2023lood pressure qocffuqanbg05/06/2023VD (peripheral vascular disease)12/21/2022ifficult tlzgdkjsel11/02/2023History of carotid fwglwrpcdmezsb70/02/0822Ldqpgq02/02/2023therosclerosis of [place] coronary artery of [place] heart without angina zynmnthc32/02/2023OSA (obstructive sleep apnea)12/21/20220640Jvqmlxfssbye72/02/2023Opioid use12/21/2022Obesity (BMI 30.0-34.9)12/21/20223777BVUBQVM25/22/2010 Overview (09/13/2009): 58 y/o female s/p L [...] require SNP today then d/c central line. Syenmf0409/11/2009 Overview (09/11/2009): 09/11/09 - III unit PRBC possible GI source. TIA (transient ischemic attack)09/08/20090971Xbbxx74/25/2002Anxiety and depression Overview (09/13/2009): Not on SSRI at home. Uses xanax for insomnia. LumbagoEssential hypertension Overview (09/13/2009): 09/11/09 - readmitted after [...] fewer fluctuations. Other and unspecified hyperlipidemia Immunizations ImmunizationAdministration DatesNext Duediphtheria tetanus (DT) vaccine, swhhdyeon41/01/1996hepatitis B (HepB) vaccine, 3-dose series, age 20+ yr (ENGERIX-B, RECOMBIVAX HB)12/21/1995,08/22/1995,07/22/1995tetanus diphtheria pertussis (Tdap) vaccine, age 7+ yr (ADACEL, BOOSTRIX)03/31/2013 Family History Medical HistoryRelationCommentsIschemic Heart DiseaseFatherHTNCancerMaternal GrandfatherLeukemia; HeartStrokeMotherAlcohol AbuseAlcohol/DrugSisterCancer SisterlungRelationStatusCommentsFatherMaternal GrandfatherMotherSister Social History Tobacco UseTypesPacks/DayYears UsedDateSmoking Tobacco: Every DayCigarettes0.340 Passive Smoke Exposure: CurrentSmokeless Tobacco: Never Tobacco Cessation:Ready to Q uit: Not Asked; Counseling Given: Not Answered Alcohol UseStandard Drinks/WeekCommentsNot Currently0 (1 standard drink = 0.6 oz pure alcohol)rarePHQ-2AnswerDate RecordedPHQ-2 cxrkk7813Area Deprivation IndexAnswerDate RecordedNational Score (1-100), lower number is lower risk78 12/13/2022State Score (1-10), lower number is lower wcbs9763Data from: https://www.neighborhoodatlas.medicine.[facility].edu/. 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 on fileNot on fileNot on file Last Filed Vital Signs Vital SignReadingTime TakenCommentsBlood Aeilnppt258/8010 12:59 PM EDT manual nwlvxLbmth6776/15/2024 12:50 PM SGEMbzqskvzwcs52.2 ??C (97.2 ??F) 05/05/2024 12:50 PM EDTRespiratory Nfiv1978 12:50 PM EDTOxygen Pgklsjnoqs56%05/05/2024 12:50 PM EDT3 liters of Z7Owjashw Oxygen Concentration-- Rposio47 kg (167 lb 8.8 oz)05/05/2024 12:50 PM CELKwloxb305.8 cm (5' 2.52 ) 05/05/2024 12:50 PM EDTBody Mass Index30.141 12:50 PM EDT Plan of Treatment Health MaintenanceDue DateLast DoneCommentsAnnual PCP Team Chronic Disease Visit 1970Pneumococcal Vaccine: 50+ (1 of 2 - PCV)11/06/1971CT Colonography 11/05/19972750Gifebugnpcb27/17/1998Fecal Occult Blood1997Sigmoidoscopy 1997Shingrix Vaccine (1 of 2)2002Bone Density Aysqxntne75/17/2018 Mammogram Wgiksdvlv84, 03/17/2019, 03/17/2019Cologuard (FIT-DNA)Colorectal Cancer Cstmzqqlt58/10/2022TaP,Tdap,Td Vaccine (3 - Td or Tdap)/04/2013, 07/22/1995LDL Cholesterol /01/2023, 01/25/2023dvance Directive Qgkdjgwyxi57/01/2025Medicare Advantage Annual Wellness Visit07/22/2024ovid-19 Vaccine ( season) /, 04/18/2021, 10/11/2020, Additional history existsInfluenza Vaccine (#1)03/22/2025Diabetes Fxxdkeoqo38, 04/14/2024, 03/24/2024, Additional history existsRSV Vaccine (1 - 1-dose 75+ series) 11/06/2027Lipid Bxtlbfpil38, 01/25/2023Hepatitis C Screening Awtlrpxln00/10/2001 Medical Devices ImplantedTypeAreaManufacturerDevice IdentifierShelf Expiration DateModel / Serial / LotPort-07/25/2023 Implanted:07/25/2023 (Quantity not on file)Chest Wall Procedures Procedure NamePriorityDate/TimeAssociated DiagnosisCommentsCOMPREHENSIVE METABOLIC SDMKQOdlrbrm41/15/2024 12:39 PM EDT 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, right (HCC) HEP REMOTE PANEL BL03/31/2001 3:23 PM EDT from Last 3 Months or Most Recently Relevant to Health Maintenance Results * (ABNORMAL) COMPREHENSIVE METABOLIC PANEL (05/05/2024 12:39 PM EDT)Component ValueRef RangeTest MethodAnalysis TimePerformed AtPathologist Signature Protein, Total6.0(L)6.3 - 8.0 g/dL05/05/2024 1:16 PM EDTNORTHCOAST [facility]ON[facility] LABAlbumin3.8(L)3.9 - 4.9 g/dL05/05/2024 1:16 PM EDTNORTHCOAST BRONSON [facility] LABCalcium, Total8.78.5 - 10.2 mg/dL05/05/2024 1:16 PM EDTNORTHCST BRONSON [facility] LABBilirubin, Total0.50.2 - 1.3 mg/dL 05/05/2024 1:16 PM EDTNORTHCOAST BRONSON [facility] LABAlkaline Fphatrsxged6189 - 123 U/L1 1:16 PM EDTNORTHCST BRONSON [facility] DQSTOD4597 - 35 U/L1 1:16 PM EDTNORTHCST [facility]ONSON [facility] BPALPI786 - 38 U/L1 1:16 PM EDTNORTUNIVERSITY OF MICH[facility] LXVRbuquzy6212 - 99 mg/dL05/05/2024 1:16 PM [facility] LABComment: The [place] Diabetes Association (ADA) provides guidance for cutoff values for fasting glucose andrandom glucose. The ADA defines fasting as no [...] Standards of Medical Care in Diabetes 2016, [place] Diabetes Association. Diabetes Care. 2016.39(Suppl 1). BUN44(H)7 - 21 mg/dL05/05/2024 1:16 PM [facility] Creatinine1.50(H)0.58 - 0.96 mg/dL05/05/2024 1:16 PM [facility] JFLAhyvgc837250 - 144 mmol/L1 1:16 PM [facility] LABPotassium4.03.7 - 5.1 mmol/L1 1:16 PM T [facility] QSMUttylafa87713 - 107 mmol/L1 1:16 PM [facility] JNTHU303(H)22 - 30 mmol/L1 1:16 PM EDWILL[facility] LABAnion Gap88 - 15 mmol/L1 1:16 PM [facility] LABEstimated Glomerular Filtration Rate37(L)>=60 mL/min/1.73m 05/05/2024 1:16 PM [facility] LABComment:Estimated Glomerular Filtration Rate (eGFR) is calculated using the 2020 CKD-EPI creatinine equation. This equation utilizes serum creatinine, sex, and age as parameters. The creatinine assay has traceable calibration to isotope dilution- mass spectrometry. Refer to KDIGO guidelines for clinical interpretation. In patients with unstable renal function, e.g. those with acute kidney injury, the eGFRmay not accurately reflect actual GFR.Specimen (Source)Anatomical Location / LateralityCollection Method / VolumeCollection TimeReceived TimeBloodBLOOD SPECIMEN / UnknownPort - Continuous Access Dev. / Icojspz9705/05/2024 12:39 PM EDT 05/05/2024 12:52 PM EDT Narrative Authorizing ProviderResult TypeResult StatusMehnaz ATKINS-CLABORATORYFinal ResultPerforming OrganizationAddressCity/State/ZIP CodePhone Number [facility] [address] [place] [address] * (ABNORMAL) HEP REMOTE PANEL BL (03/31/2001 3:23 PM EDT)ComponentValueRef Range Test MethodAnalysis TimePerformed AtPathologist SignatureHep B Core Ab, Total NegativeNEGWALTON CLINIC LABHep C Antibody IANegativeNEGCLEVELAND CLINIC MENTOR [facility]OSPITAL LABHBsAgNegativeNEGCLEVELAND CLINIC MENTOR [facility]OS[facility]ITAL LABHep B Surface Ab, QualPositive(A)NEG [facility] LABComment: A positive Hepatitis B Surface Antibody or a result of > or = 10 mIU/mL implies immunity to HBV. For additional information and guidelines see MMWR 1990,39(RR-2) 1-23, August 30, 1989. Interpretation (Hep Remote Pnl)These results are consistent with previous exposure and immunity to theCLEVELAND CLINIC M[facility]OS[facility] LABComment:hepatitis B virus antigen, as seen for example secondary to vaccination.Specimen (Source) Anatomical Location / LateralityCollection Method / VolumeCollection Time Received Time03/31/2001 3:23 PM EDT Narrative Authorizing ProviderResult TypeResult StatusMartinez Hayes Jr., MDLABORATORY Final ResultPerforming OrganizationAddressCity/State/ZIP CodePhone Number [facility] [address] [place] [address] from Last 3 Months or Most Recently Relevant to Health Maintenance Insurance [address] [place] [address] [address] [place] [address] Care Teams Team MemberRelationshipSpecialtyStart DateEnd Date Jayy Guzman MD [address] [place] [address] PCP - General09/01/09 Jie Johnson APRN.DIRECTOR OF GOLF [address] [place] [address] Nurse PractitionerHematology/Oncology01/16/23 Roxana Wagner, LIU [address] [place] [address] Specialty Care CoordinatorHematology/Oncology01/16/23
--- OUTSIDE RECORDS SUMMARY | 2025-06-16 07:57 | XMS_ITS ---
Author Organization [facility] Address [address] [place], [place] [address] Care Team Providers Care Brush Machine Setter Name Role Phone Jayy Guzman MD Primary Care Provider [phone] Jie Johnson APRN.PHYSICIAN NON INVASIVE CARDIOLOGIST Unavailable [phone] Roxana Wagner RN Unavailable [phone] Active Problems ProblemNoted DateDiagnosed Date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, right01/15/2023lood pressure nraqbdnmxpx67/06/2023VD (peripheral vascular disease)3Difficult emafxpphhu84/02/2023History of carotid ybvquqmjivtvhp16/02/7081Obthan79/02/2023therosclerosis of [place] coronary artery of [place] heart without angina /02/2023OSA (obstructive sleep apnea)12/21/20226693Dpepmrcqgunp60/02/2023Opioid use12/21/2022Obesity (BMI 30.0-34.9)12/21/20229257VGDPPFS24/22/2010 Overview (09/13/2009): 58 y/o female s/p L [...] require SNP today then d/c central line. Odopwr8109/11/2009 Overview (09/11/2009): 09/11/09 - III unit PRBC possible GI source. TIA (transient ischemic attack)09/08/20093324Wtdic07/25/2002Anxiety and depression Overview (09/13/2009): Not on SSRI [...] information found. Past Treatment and Therapy Plans Plan NameStart DateDiscontinue DateTreatment MedicationsDiscontinue ReasonPlan ProviderCyclesAMB HYDRATION - NS 1000ML IV - ONCE10/28//06/2024No medications scheduled.Mehnaz Lancaster PA-C1 of 1 cycle startedPlan NameStart Date Discontinue DateTreatment MedicationsDiscontinue ReasonPlan ProviderCyclesAMB PEMBROLIZUMAB 200MG - Q21D7///05/2025* pembrolizumab IV infusion (KEYTRUDA) Jayy Astudillo MD18 of 19 cycles started
--- OUTSIDE RECORDS SUMMARY | 2025-06-16 07:57 | XMS_ITS | Clinical Summary ---
Author Organization [facility] Healthcare Address [address] [place] [address] Care Team Providers Care Paper Testing Supervisor Name Role Phone Zo Tavarez ACUTE CARE CLINICAL NURSE SPECIALIST Unavailable Marcellus Valenzuela DO Primary Care Provider [phone] Marcellus Valenzuela DO Unavailable [phone] Allergies Active AllergyReactionsCriticalityNoted LznmIsxwrlfbMhyohepgzwsjp59/15/2024 Other Reaction(s): Hypertension Krmoqxtlra00/12/2025 Other Reaction(s): foot drop slurring words, dry mouth LatexItching,JcytYva6208/13/2023 Other Reaction(s): Rash UiyfvzmsIfvdgbkUlrk40/18/2010 Other Reaction(s): Hallucinating Aueijr3205/05/2024 Other Reaction(s): Rash Nmdfbt3405/05/2024 Other Reaction(s): Hypertension Sulfa AntibioticsUnknown,HglrgoydzfnZdiq22/17/2001 Medications MedicationSigDispense QuantityRefillsLast FilledStart DateEnd DateStatus amiodarone (Pacerone) 200 MG tablet Take 100 mg by mouth Daily4Active ALPRAZolam (Xanax) 0.5 MG tablet Indications:Anxiety and depressionTake 1 tablet (0.5 mg) by mouth in the morning and 1 tablet (0.5 mg) before bedtime. 60 tablet 5Active aspirin 81 MG EC tablet Daily5Active cloNIDine (Catapres) 0.1 MG tablet Take 0.1 mg by mouth Daily as needed for high blood ijpwnbgj46/14/2025Active lisinopril 5 MG tablet Take 5 mg by mouth Daily as vdilwd095Active ferric gluconate (Ferrlecit) 12.5 MG/ML injection Q7D5Active ondansetron ODT (Zofran-ODT) 4 MG disintegrating tablet Take 4 mg by mouth every 6 (six) hours if qauewv5402/12/2025tive senna-docusate (Mora-Colace) 8.6-50 MG tablet Take 1 tablet by mouth Daily02/05/2025tive apixaban (Eliquis) 5 MG tablet Take 5 mg by mouth in the morning and 5 mg before bedtime.5Active rosuvastatin (Crestor) 5 MG tablet Indications:Cerebrovascular accident (CVA), unspecified mechanism (HCC)Take 1 tablet (5 mg) by mouth Daily for 10 days, THEN 2 tablets (10 mg) Daily for 20 days. 50 tablet 02/23/2025tive metoprolol succinate XL (Toprol-XL) 50 MG 24 hr tablet Indications:Atrial fibrillation, unspecified type (HCC)Take 1 tablet (50 mg) by mouth in the morning and 1 tablet (50 mg) before bedtime.5Active HYDROcodone-acetaminophen ([place]iopolis) 7.5-325 MG tablet Indications:Lumbar painTake 1 tablet by mouth 2 (two) times a day as needed for severe pain 60 tablet Expired Active Problems ProblemNoted DateDiagnosed DateEnd-stage renal disease on qiiyvfobdvtc31/07/2025 Atrial xasfztpjlygf32/07/2025bdominal pain02/16/2025ounseling regarding advance care planning and goals of care02/16/2025Ectatic abdominal aorta 02/16/2025End stage renal failure on lagvixzq37/29/2025HOCM (hypertrophic obstructive cardiomyopathy)02/16/2025Iron deficiency wzdjdn4902/16/2025Left jwuoimwvgh57/29/2025Left leg jokfubxl54/29/2025Mild cognitive impairment 02/16/2025Stroke-like /29/7570Gsfohqzq86/29/2025ute right arterial ischemic stroke, anterior cerebral artery (SHERMAN)02/16/2025VA (cerebral vascular accident)02/16/2025 Assessment & Plan (02/23/2025 4:15 PM EDT): [...] mouth Daily for 10 days, THEN 2 tablets(10 mg) Daily for 20 days. Arteriosclerosis of coronary xemqrk7402/16/2025History of heart bypass surgery 02/16/2025 Overview (02/16/2025): cabg x3 Abnormal positron emission tomography of right lung05/25/2024enal failure 05/25/2024cute respiratory failure with yhzknigwh14/04/2024denocarcinoma of lung05/25/2024ltered mental xnvyxn9205/25/20241274Uzxmelf94/04/2024laudication of both lower yewzpqxyync73/04/2024ritical illness jihhyfht60/04/2024isorder 05/25/2024Elevated nluwengx68/04/2024Hematoma of neck05/25/2024Multiple lung nodules on CT05/25/2024leural vxjtgiwr82/04/2024olymyalgia rheumatica ([facility])05/25/2024ulmonary myllibwczqjx92/04/2024enal artery stenosis, tanana, dtupufyln74/04/2024heumatoid rtrodgkfz75/04/2024S/P CABG x Cbznpyn2505/25/2024Shortness of mjnfze5905/25/2024Smoking cokqezh2105/25/2024 Hypertensive uzskgkifa12/04/2024Hypertensive urgency, tklaywmjt10/04/2024ight- sided extracranial carotid artery pmbaxwik78/04/2024Hypertensive crisis 05/25/2024Transient atrial efhepujkphnr29/04/2024Goals of care, counseling/qrwxinadqq01/04/2024Refusal of statin medication by hjxcikv6411/29/2023 Asymptomatic hypertensive scpykig3201/28/2023trophy of kidney (terminal) 01/28/2023hronic obstructive pulmonary disease, rawgiavjmok12/10/2023ecreased hearing of both ears01/28/2023nxiety and wknuztzjki48/10/2023 Overview (01/28/2023): Not on SSRI at home. [...] interested in any medications at this time, continueto follow at subsequent visits History of lung pzkltv1001/28/2023Lumbago of lumbar region with /10/2023 Occlusion and stenosis of unspecified carotid xseqbt2001/28/2023Other forms of angina /10/2023rimary lung cancer with metastasis from lung to other site, right01/15/2023 Assessment & Plan (12/24/2024 10:00 PM EDT): Blood pressure yympvuszfdx77/06/2023Opioid use12/21/2022OSA (obstructive sleep apnea)12/21/20222004Rvsrsflyunab79/02/2023eripheral vascular yhkxjzu1712/21/2022 Wlccpu0412/21/20228289Wegznzjqbksshtk32/13/2021econdary scjtpgjgtwokguslzvv97/13/2021 Excessive daytime verpgtyvle97/12/2021nemia of chronic renal zqqpbne8812/03/2018 Chronic pnrabypmxzvhvtx62/15/2019Atherosclerosis of coronary artery without angina rmyfzsrz01/15/2019Chronic kidney disease due to ewvzbiawmnbc02/15/2019 Diastolic vfhiackuozq66/28/2018Essential npgvvowzncwp64/21/2018 Overview (01/28/2023): 09/11/09 - readmitted after CEA [...] and 0.5 tablets (37.5 mg) before bedtime. Qvrbauhrrlfb13/06/2017Hypertensive heart dluycxt2002/01/2017Major depression, single pwaepis5002/01/2017Vitamin D bwgyneinug23/02/2017Chronic mastoiditis of left side07/09/2016Hearing loss05/29/2016Lung gjulrh8607/05/2015Chronic fatigue 05/18/2015Chronic pain kobavxhb44/28/2015 Assessment & Plan (12/24/2024 10:00 PM EDT): Pt requested refill on norco for chronic pain, pdmp checked and no red flags, refills sent Orders: HYDROcodone-acetaminophen ([place]) 5-325 MG tablet; Take 1 tablet by mouth every 6 (six) hours if needed for severe pain Anemia of renal cyoywmd4209/11/2009 Overview (01/28/2023): 09/11/09 - III unit PRBC possible GI source. TIA (transient ischemic attack)09/08/2009 Resolved Problems ProblemNoted DateDiagnosed DateResolved DateHypertensive tpkgajs2402/16/2025 02/16/2025Pseudomonas aeruginosa xkrrterpm31/10/2023Slurred speech /MI 30.0-30.9,adult/04/2023IBS (irritable bowel syndrome)/therosclerosis of tanana coronary artery of tanana heart without angina sxjovfzq38Obesity (BMI 30.0-34.9) ifficult opteprguvy88History of carotid rfnwvljlgrteaf30rteriosclerosis of srlpoe81 Paroxysmal atrial gddudkfajvxu98lass 1 hvzoupi7708/10/2018 01/28/2023Overweight with body mass index (BMI) 25.0-29.90 Obesity with body mass index 30 or hudxcfg11Mixed upbwbkxpstndbr54History of primary malignant neoplasm of lung Mixed hearing loss, uhjsprmzb15eneralized anxiety bpxguqmq90Referral of rtmnfwl12ough Encounters DateTypeDepartmentCare PodkNxsfudfttiz04/17/2025Patient Outreach [facility] [address] [place] [address] Zo Tavarez LSW 05/06/2025Patient Outreach [facility] [place] [address] [place] [address] Zo Tavarez LSW 04/27/2025 1:20 PM EDTOffice Visit [facility] [address], [address] [place] [address] Marcellus Valenzuela DO End-stage renal disease on hemodialysis (HCC) (Primary Dx); Hypotension, unspecified hypotension type; Other fatigue; Essential hypertension; Atrial fibrillation, unspecified type (HCC); Hemiplegia, unspecified affecting left nondominant side (HCC); Chronic obstructive pulmonary disease, unspecified (HCC); Lumbar pain04/27/2025amboo flowsheet [facility] [address], [address] [place] [id number] Nicolas MarcellusDO 5Clinisync Result Encounter [facility] External Department Unsolicited Provider, Generic External Data 04/06/2025Patient Outreach [facility] [address] [address] Zo Tavarez, ACUTE CARE CLINICAL NURSE SPECIALIST 5Clinisync Result Encounter [facility] External Department Unsolicited Provider, Generic External Data from Last 3 Months Immunizations ImmunizationAdministration DatesNext DueDT (pediatric)07/22/1995Hep B, adult 12/21/1995,08/22/1995,07/22/1995PPD Test06/01/2024,05/22/20249228BNKT-WMU-4 (COVID- 19) vaccine, mRNA, spike protein, LNP, bivalent, preservative free, 30 mcg/0.3 mLdose, tosin-sucrose dneczddtzwe25/29/2610Etzj24/10/2013 Family History Medical HistoryRelationNameCommentsNo Known ProblemsBrotherrobertdob 1950No Known ProblemsFatherrobertdied 93Alcohol abuseMothersilviadied 64Lung cancer Sister 1barbdob 1955Lung cancerSister 2pamdied 45Irritable bowel syndromeSon 1 shawndob 1972No Known ProblemsSon 2robertdob 1970No Known ProblemsSon 3william 1971No Known ProblemsSon 4jamesldob 1973RelationNameStatusCommentsBrother robertAliveFatherrobertDeceasedMothersilviaDeceasedSister 1barbAliveSister 2pam DeceasedSon 1shawnAliveSon 2robertAliveSon 3williamAliveSon 4jamesAlive Social History Tobacco UseTypesPacks/DayYears UsedDateSmoking Tobacco: FormerCigarettesQuit: 06/2023Smokeless Tobacco: CurrentSnuff Tobacco Cessation:Ready to Q uit: Not Asked; Counseling Given: Not Answered Alcohol UseStandard Drinks/WeekCommentsNever0 (1 standard drink = 0.6 oz pure alcohol)Humiliation, Afraid, Rape, and Kick questionnaireAnswerDate Recorded Within the last year, have you been afraid of your partner or ex-partner?No 04/15/2023Within the last year, have you been humiliated or emotionally abused in other ways by your partner or ex-partner?No04/15/2023Within the last year, have you been kicked, hit, slapped, or otherwise physically hurt by your partner or ex-partner?No04/15/2023Within the last year, have you been raped or forced to have any kind of sexual activity by your partner or ex-partner?No04/15/2023 Social Connection and Isolation PanelAnswerDate RecordedIn a typical week, how many times do you talk on the phone with family, friends, or neighbors?Three times a week04/15/2023How often do you get together with friends or relatives? Patient zytvzywc61/25/2023How often do you attend baptist or moravian services? Patient tpdiefxj54/25/2023o you belong to any clubs or organizations such as baptist groups, unions, fraternal or athletic groups, or school groups?Patient yimrqhgf81/25/2023How often do you attend meetings of the clubs or organizations you belong to?Patient vpeapwbq51/25/2023re you , , , , never , or living with a partner?Noqlrsc3804/15/2023UDIT-C AnswerDate RecordedQ1: How often do you have a drink containing alcohol?Never 02/23/2025Q2: How many drinks containing alcohol do you have on a typical day when you are drinking?Patient does not drink02/23/2025Q3: How often do you have six or more drinks on one occasion?Never02/23/2025Overall Financial Resource Strain (CARDIA)AnswerDate RecordedHow hard is it for you to pay for the very basics like food, housing, medical care, and heating?Not hard at all04/15/2023 PHQ-2AnswerDate RecordedPatient Health Questionnaire-2 Hhaqj165[facility] - Occupational Stress QuestionnaireAnswerDate [...] exercise at this level?0 min04/15/2023Hunger Vital SignAnswerDate RecordedWithin the past 12 months, you worried that your food would run out before you got the money to buy more.Never true04/15/2023Within the past 12 months, the food you bought just didn't last and you didn't have money to get more.Never true04/15/2023RAPARE - TransportationAnswerDate RecordedIn the past 12 months, has lack of transportation kept you from medical appointments or from getting medications?No 04/15/2023In the past 12 months, has lack of transportation kept you from meetings, work, or from getting things needed for daily living?No04/15/2023 Housing Stability Vital SignAnswerDate RecordedIn the last 12 months, was there a time when you were not able to pay the mortgage or rent on time?No04/15/2023In the last 12 months, how many places have you lived?In the last 12 months, was there a time when you did not have a steady place to sleep or slept in [facility] (including now)?No04/15/2023CommentsNoSex and Gender InformationValueDate RecordedSex Assigned at BirthNot on fileLegal SexFemale 10/03/2022 6:53 PM EDTGender IdentityNot on fileSexual OrientationNot on file Last Filed Vital Signs Vital SignReadingTime TakenCommentsBlood Fsistcfn559/7010 1:31 PM EDT Ylkyi310304/27/2025 1:31 PM AJWLasgthxaemg02.7 ??C (98 ??F)04/27/2025 1:31 PM EDT Respiratory Ajxf0541 1:31 PM EDTOxygen Fahmwyreag71%04/27/2025 1:31 PM EDTInhaled Oxygen Concentration--Mogtsu57.1 kg (128 lb)04/27/2025 1:31 PM EDT Zavbwz167 cm (5' 3 )04/27/2025 1:31 PM EDTBody Mass Index22.6710 1:31 PM EDT Plan of Treatment Health MaintenanceDue DateLast DoneCommentsCT Bdxdvhlcxkxl78/17/1953Colonoscopy 1950FIT1950FOBT1950 9063Gbdmpehvpnwgi90/17/1953neumococcal Vaccine: 65+ Years (1 of 2 - PCV)11/06/19717684Exwyjcvmt53, 03/17/2019Colorectal Cancer Djlrxmrhc68/10/2022FIT-DNA, 12/29/2018COVID-19 Vaccine (2024- season)5004/18/2021, 10/11/2020, 09/19/2020Influenza Vaccine (#1)2025 Procedures Procedure NamePriorityDate/TimeAssociated DiagnosisCommentsALL POTASSIUMRoutine 04/09/2025 7:48 AM EDT ALL ZOSFDJSVVQeleyew08/08/2025 7:18 AM EDT BI MAMMOGRAM SCREENING ATCOUWHMFTpgsfba52/27/2019 Generalized anxiety disorder Body mass index (BMI) 30.0-30.9, adult Encounter for screening mammogram for malignant neoplasm of breast Lumbago with sciatica, unspecified side LAB COLOGUARD?? COLON CANCER OKQLGECmroivj67/10/2019 from Last 3 Months or Most Recently Relevant to Health Maintenance Results * (ABNORMAL) ALL POTASSIUM (04/09/2025 7:48 AM EDT) Only the most recent of2 resultswithin the time period is included. ComponentValueRef RangeTest MethodAnalysis TimePerformed AtPathologist Signature POTASSIUM5.2(H)3.5 - 5.1 mmol/LTBHSpecimen (Source)Anatomical Location / LateralityCollection Method / VolumeCollection TimeReceived Time04/09/2025 7:48 AM EDT04/09/2025 8:12 AM EDT Narrative CLINISYNC - 04/09/2025 8:28 AM EDT Authorizing ProviderResult TypeResult StatusGeneric External Data Provider CLINISYNCFinal ResultPerforming OrganizationAddressCity/State/ZIP CodePhone Number [facility] * Bilateral screening mammogram (03/17/2019)Anatomical RegionLateralityModality BreastBilateralMammographySpecimen (Source)Anatomical Location / Laterality Collection Method / VolumeCollection TimeReceived Time Impressions 03/17/2019 12:00 AM EDT NO MAMMOGRAPHIC EVIDENCE OF MALIGNANCY. ROUTINE FOLLOW-UP IS RECOMMENDED IN ONE YEAR. RESULT CODE: 2 ?? Benign Findings(s) DENSITY CODE: 1 (<25% glandular) FOLLOW UP: 1YR The false-negative rate of mammography is approximately 10-percent. Management of a palpable abnormality must be based on clinical grounds. Patient was entered into a reminder system with a target due date for the next mammogram. Impression dictated by: Kameron Olivera M.D.03/17/2019 5:37 PM Dictation Location: [facility] Transcribed By: ? PWS ?03/17/19 1737 Dictated By: ?Kameron Olivera MD ?03/17/197 Signed By: <Electronically signed by MD Kameron Olivera in OV> ?03/17/19 1737 Narrative 03/17/2019 12:00 AM EDT PERFORMED AT [facility] LOCATION:[place] [address] ?[facility] ?[facility] [place] ?[address] ? [place] [address] ? Mammography Report ? Signed Patient: TjLupe geroges ?MR#: [id number] 1 : 1950 ?Acct:[id number] Age/Sex: 68 / F ?ADM Date: 03/17/19 Loc: [place] ?Room: ?Type: REG CLI Attending Dr: Akiko Sánchez APRN, NP-C Ordering Provider: Akiko Sánchez APRN, CNP Date of Service: 03/17/19 MM/MM screening mammo BI w/CAD: screening;Screening mammogram, encounter for Copies to: MD Akiko Espino APRN, CNP BILATERAL SCREENING MAMMOGRAMS - FULL FIELD DIGITAL WITH TOMOSYNTHESIS CLINICAL DATA: ??Screening for malignancy. FINDINGS: Craniocaudal and mediolateral oblique views of both breasts were obtained with Tomosynthesis using low-dose digital technique. ??Implant displacement views were also obtained. Comparison is made to prior studies on 04/22/2015. ??This examination was reviewed with the aid of CAD. ??A mole marker was placed on the left. The breast parenchyma has been largely replaced by fat. ??A deflated right saline breast implant is again noted. ??The left saline breast implant is intact. ??Dense calcifications are demonstrated within the posterior central portion of the right breast probably related to previous rupture silicone breast implant. ??There are also multiple benign microcalcifications bilaterally. ??There are no developing masses, typically malignant calcifications or architectural distortion. ??There has been no significant interval change. MM/MM screening mammo BI w/CAD Procedure Note CONVERSION, GENERIC - 01/25/2023 PERFORMED AT [facility] LOCATION:[address] [place] [address] [place] [address] Mammography Report Signed Patient: Lupe ButlerMR#: [id number] 1 : 3Acct:[id number] Age/Sex: 68 / FADM Date: 03/17/19 Loc: [place] Room:Type: [facility] Attending Dr: Akiko Sánchez APRN, NP-C Ordering [...] Kameron Olivera M.D.03/17/2019 5:37 PM Dictation Location: [facility] Transcribed By: ZEFERINO 03/17/19 1737 Dictated By: Kameron Olivera MD 03/17/19 1727 Signed By: <Electronically signed by MD Kameron Olivera in OV> 03/17/19 1737 Authorizing ProviderResult TypeResult StatusCarrie A Kiepert NPIMG BI PROCEDURES Final Result * Cologuard?? colon cancer screening (12/29/2018)ComponentValueRef RangeTest MethodAnalysis TimePerformed AtPathologist SignatureCOLOGUARD RESULT REPORTABLENegativeNot ApplicableNOMS LEGACY EXTERNAL LABComment: A negative result indicates a low likelihood [...] screened with both Cologuard and colonoscopy. (Shawna Tavera al, N Engl J Med 2014;370(14):1139-2196) ?? COLOGUARD RE-SCREENING RECOMMENDATION: Periodic routine colorectal cancer screening is an important part of preventive healthcare for asymptomatic persons at average risk for colorectal cancer. ??Following a negative Cologuard result, the [place] Cancer Society and U.S. Multi-Society Task Force screening guidelines recommend a Cologuard re-screening interval of 3 years. ??References: [employer] Society (ACS). Colorectal cancer prevention and early detection. [place], [place]: [employer]; [updated 2015Nov 12]. https://www.cancer.org/cancer/co avv-lzomwq-ijexoq/pvdnrqaqw-coogenvvu-aujrxxl/acs-recommendations.html. Accessed March 21, 2018; Cl DK, Kirstin ZAPATA, Abdoul SamuelK, Colorectal Cancer Screening: Recommendations for Physicians and Patients from the U.S. Multi-Society Task Force on Colorectal Cancer Screening, Am J Gastroenterology 2017; 112:5542-8431. Test Type: Composite algorithmic analysis of stool DNA-biomarkers with hemoglobin immunoassay. ?? Quantitative values of individual biomarkers are not [...] can be accessed at the following location: www.[facility].Aspida/results. ??Additional description of the Cologuard test process, warnings and precautions can be found at www.cologuardtest.com. Rx Only. Specimen (Source)Anatomical Location / LateralityCollection Method / Volume Collection TimeReceived Time12/29/2018 Narrative Authorizing ProviderResult TypeResult StatusCarrie Zeinab Sánchez NPLAB MOLECULAR DIAGNOSTICS ORDERABLESFinal ResultPerforming OrganizationAddressCity/State/ZIP CodePhone Number [facility] from Last 3 Months or Most Recently Relevant to Health Maintenance Insurance Care Teams Team MemberRelationshipSpecialtyStart DateEnd Marcellus Valenzuela DO [address] [place] [address] PCP - GeneralFamily Medicine02/17/25 Marcellus Valenzuela DO [address] [place] [address] PCP - Carolynn KEN04/21/25 Zo Tavarez LSW [address] [place] [address] Social Workermily Medicine02/22/23
[2025-06-16 08:24] LABS: Potassium 5.8 mmol/L (3.5-5.1)
== END 2025-06-16 07:52 | disposition home or self-care (01) ==
LOC: LAB 07:51
PROVIDERS: PCP Family Medicine; Visit Provider Internal Medicine Nephrology
DX: E87.5 Hyperkalemia (principal)
CPT/HCPCS: 36415; 84132

== ENCOUNTER 2025-07-02 09:10 | Outpatient (REF) | payer MEDICARE, SELFPAY ==
--- OUTSIDE RECORDS SUMMARY | 2025-06-29 10:09 | XMS_ITS | Continuity of Care Document ---
Author Organization [facility] Address [address] [place] [address] Phone Care Team Providers Care Cardiac Cath Lab Radiology Technologist Name Role Phone Jayy Guzman MD Primary Care Provider Candi Soto Attending Provider Anival Benjamin MD Attending Provider [phone] Aruna Hernandez MD Attending Provider [phone] Care Teams Patient Care Team Team Status: Active Member Role/Relationship Status Dates Jayy Guzman MD Primary Care Provider Active Visit Care Team Team Status: Active Member Role/Relationship Status Dates Jayy Guzman MD Primary Care Provider Active S tart: April 09, 2025 Abby Pisano ProviderActiveStart: April 09, 2025 Visit Care Team Team Status: Active Member Role/Relationship Status Rafat Guzman MD Primary Care Provider Active S tart: April 16, 2025 Abby Gaytan ProviderActiveStart: April 16, 2025 Visit Care Team Team Status: Inactive Member Role/Relationship Status Rafat Guzman MD Primary Care Provider Active S tart: May 18, 2025 End: May 18, 2025Abby Tran ProviderActiveStart: May 18, 2025 End: May 18, 2025 Visit Care Team Team Status: Active Member Role/Relationship Status Dates Jayy Guzman MD Primary Care Provider Active S tart: May 19, 2025 Abby Pisano ProviderActiveStart: May 19, 2025 Visit Care Team Team Status: Active Member Role/Relationship Status Dates Jayy Guzman MD Primary Care Provider Active S tart: June 16, 2025 Abby Gaytan ProviderActiveStart: June 16, 2025 Patient Care Team Team Status: Inactive Member Role/Relationship Status Dates Jayy Guzman MD Primary Care Provider Active S tart: June 29, 2025 End: June 29, 2025Abby Tran ProviderActiveStart: June 29, 2025 End: June 29, 2025 Chief Complaint and Reason for Visit Chief Complaint Admit Date [place] 02/04 - Pt req FU with Dr Hernandez Oc tober 2024 3:09pm 6 week f/u June 29, 2025 2 :12pm Reason for Visit Admit Date Hypertensive heart disease May 18, 2025 3:09pm Hypertension May 18, 2025 3 :09pm CAD (coronary artery disease) May 182024 3:09pm History of heart bypass surgery May 18, 2025 3:09pm Iron deficiency anemia May 18 3:09pm Hypertensive heart disease June 29, 2025 2:12pm Hypertension June 29, 2025 2 :12pm CAD (coronary artery disease) June 292024 2:12pm History of heart bypass surgery June 29, 2025 2:12pm Iron deficiency anemia June 29 2:12pm Allergies, Adverse Reactions, Alerts Allergen Type Severity Reaction Last Updated Verified Status Comments latex Allergy Unknown Rash June 29, 2025 2:31pm Yes Active Sulfa (Sulfonamide Antibiotics)AllergyUnknownAnaphylaxisDecember 2024 2:31pmYesActivecarvedilolAllergyUnknownfoot dropDecember 2024 2:31pmYes Activeslurring words, dry mouthmorphineAllergyUnknownHallucinatingDeceer 2024 2:31pmYesActiveThis patient has had Albuterol before.nickelAllergyUnknown RashDecember 2024 2:31pmYesActiveNSAIDS (Non-Steroidal Anti-InflammaAdverse ReactionUnknownHypertensionDecember 2024 2:31pmYesActive Social History Smoking Status Status Start Date End Date Date of Observa tion Smokes tobacco daily (finding) June 29, 2025 2:33pm Observation Status Observation Response Date of Response Legal Sex [facility] (finding) [facility] 1950 Family History Relationship Condition Age at Onset Recorded Date/T amarilys father Hypertension Unknown DeceasedUnknownsisterMalignant neoplasm of lungUnknownDeceasedUnknownsister Malignant neoplasm of lungUnknowngrandparentDeceasedUnknowngrandparentDeceased UnknowngrandparentDeceasedUnknowngrandparentDeceasedUnknownmotherHistory of strokeUnknownDeceasedUnknownAcute cerebrovascular accident (CVA)Unknown Problems Active Problems Problem Diagnosis/Recorded Date Onset Date Status C omments Counseling regarding advance care planning and goals of care May 26, 2024 3:26pm Unknown Active Abnormal positron emission tomography of right lungApril 2020 1:40pm UnknownActiveSecondary hyperparathyroidismJuly 2023 8:48amUnknownActive Recurrent left pleural effusionMarch 2018 3:57pmUnknownActiveA-fibJuly 2024 10:02amUnknownActiveChronic anticoagulationJuly 2024 3:07pm UnknownActiveAdenocarcinoma of left lung, stage 1February 2021 4:26pm UnknownActiveMild cognitive impairmentJuly 2024 11:12amUnknownActive Multiple lung nodules on CTSeptember 2020 7:42amUnknownActiveRight-sided extracranial carotid artery stenosisFebruary 2019 3:47pmUnknownActive Claudication of both lower extremitiesSeptember 2020 7:47amUnknownActive Smoking historyMarch 2018 3:53pmUnknownActiveLung cancerOctober 2023 1:12pmUnknownActiveCarotid artery diseaseMarch 2018 3:54pmUnknownActive ESRD on dialysisJuly 2024 10:04amUnknownActiveLeft hemiplegiaJuly 2024 11:12amUnknownActiveHypertensionMarch 2018 3:55pmUnknownActiveVitamin D deficiencyJuly 2023 8:48amUnknownActiveHypertensive heart diseaseMay 2024 10:42amUnknownActivePseudomonas aeruginosa infectionApril 2018 9:41amUnknownActiveCVA (cerebral vascular accident)January 29, 2025 10:52am UnknownActiveInactive/Resolved Problems Problem Diagnosis/Recorded Date Onset Date Status C omments Hypertensive urgency January 30, 2025 7:32pm Unknown Res olved MRSA infection greater than 3 months agoMarch 2018 3:55pmUnknownResolved Hypertensive urgency, malignantOctober 2023 11:34amUnknownResolved Polymyalgia rheumaticaFebruary 2021 4:30pmUnknownResolvedRheumatoid arthritisSeptember 2020 7:50amUnknownResolvedPost ICU syndromeOctober 2023 11:26amUnknownResolvedAcute hypotensionNovember 2023 6:25pm UnknownResolvedCompression atelectasisJuly 2022 5:44pmUnknownResolvedType 2 DC (myocardial infarction)May 26, 2024 3:38pmUnknownResolvedHistory of primary non-small cell carcinoma of left lungApril 2020 1:47pmUnknown ResolvedImpaired mobility and activities of daily livingApril 2018 9:40am UnknownResolvedHypertensive emergencyOctober 2023 10:32pmUnknownResolved Acute right arterial ischemic stroke, anterior cerebral artery (SHERMAN)February 03, 2025 1:26pmUnknownResolvedShortness of breathOctober 2023 1:57pmUnknown ResolvedAtrophic kidneyJuly 2023 8:57amUnknownResolvedStage 3 chronic kidney diseaseApril 2020 1:49pmUnknownResolvedCAD (coronary artery disease)September 30, 2018 3:51pmUnknownResolvedHOCM (hypertrophic obstructive cardiomyopathy)February 04, 2025 1:08pmUnknownResolvedHypoxemiaJuly 2022 5:44pmUnknownResolvedAnxietyMarch 2018 3:55pmUnknownResolvedPulmonary hypertensionOctober 2023 2:44pmUnknownResolvedHypertensive chronic kidney disease with stage 1 through stage 4 chronic kidney disease, or unspecified chronic kidney diseaseJuly 2023 8:47amUnknownResolvedCoughOctober 2023 10:33pmUnknownResolvedHypertensive crisisOctober 2023 7:10pmUnknown ResolvedCritical illness myopathyOctober 2023 12:39pmUnknownResolvedLeft leg weaknessJuly 2024 11:28amUnknownResolvedAdenocarcinoma of lungOctober 2023 10:32pmUnknownResolvedPleural effusionJuly 2022 5:44pmUnknown ResolvedPleural effusionOctober 2023 3:26pmUnknownResolvedAcute respiratory failure with hypoxemiaOctober 2023 11:19amUnknownResolvedRenal failureMay 2024 11:37amUnknownResolvedRespiratory failureMarch 2018 7:26amUnknownResolvedSeizureOctober 2023 10:32pmUnknownResolvedElevated troponinOctober 2023 7:14pmUnknownResolvedRecurrent right pleural effusion October 2023 10:33pmUnknownResolvedStroke-like symptomsJuly 2024 6:58pmUnknownResolvedAcute renal failure on dialysisNovember 2023 12:08pm UnknownResolvedAcute kidney injury superimposed on CKDOctober 2023 11:34am UnknownResolvedIron deficiency anemiaMay 2024 10:42amUnknownResolvedDVT prophylaxisApril 2018 9:40amUnknownResolvedLung cancerMarch 2018 3:52pmUnknownResolvedIncontinence associated dermatitisNovember 2023 8:24pm UnknownResolvedS/P CABG x 3April 2018 9:37amUnknownResolvedESRD (end stage renal disease) on dialysisJuly 2024 10:43amUnknownResolvedParoxysmal atrial fibrillationMarch 2018 4:20pmUnknownResolvedAltered mental status May 09, 2024 7:10pmUnknownResolvedAtherosclerotic vascular diseaseAugust 2020 4:42pmUnknownResolvedAnemia of renal diseaseMarch 2018 12:46pm UnknownResolvedAnemia of renal diseaseMay 2024 10:42amUnknownResolved History of heart bypass surgeryMay 2018 6:22amUnknownResolvedcabg x3 Abdominal painFebruary 2024 1:51pmUnknownResolvedRenal artery stenosis, [place], bilateralOctober 2023 2:43pmUnknownResolvedHypertensionMay 2024 10:42amUnknownResolvedEnd-stage renal disease (ESRD)May 25, 2024 6:25pmUnknownResolvedVomitingFebruary 2024 1:51pmUnknownResolvedAtrial fibrillation with RVRNovember 2023 8:23pmUnknownResolvedEctatic abdominal aortaJuly 2024 7:49pmUnknownResolvedGoals of care, counseling/discussion May 20, 2024 4:20pmUnknownResolved Medications Medication Status Dose Units Route Directions Qty Days Refills S tart Date Stop Date End Date Reason(s) Instructions Adherence Amiodarone 200 mg tablet Discontinued 200 MG PO Daily 90 90 0 November 18, 2024 12:22pm November 25, 2024 1:16pmMetoprolol Tartrate 75 mg qhouopTegpbgbwdhvr30ZOUZUumkx cjauk05555Muh 22nd, 2025 11:00pmJuly 2024 1:51pmMetoprolol Succinate 50 mg tablet extended release 24 nsEzssxqaicjnu56GOXTYolzgWbtzwzu 2018 12:00am October 19, 2018 3:09pmhtnClopidogrel 75 mg shjakbHalvtgtbzdix51GUJBUjvhfVenxbwq 2018 12:00amApril 2018 2:55pmCADAlprazolam 0.5 mg tabletActive0.5MGPO Daily at bedtimeJanuary 2018 12:00amAnxietyComplies with drug therapy Flaxseed Oil 1,000 mg IlgusooRzcsjeypczyp6193KKQZAaikbCubpelr 2018 12:00am September 29, 2018 2:15pmHydrocodone-Acetaminophen 7.5-325 mg tabletDiscontinued1 TABPOEvery 6 hours as needed for PainJanuary 2018 12:00amApril 2018 2:56pmNitroglycerin 0.4 mg Tablet, SublingualDiscontinued0.4MGSUBLINGUALEVERY 5 MINUTES as needed for AnginaJanuary 2018 12:00amApril 2018 2:59pm Olmesartan 5 mg womuljIrdgqevwvipx50XMERZpfimjsDoogplo 2018 12:Epesrc 2018 3:03pmhtnIsosorbide Mononitrate 30 mg tablet extended release 24 hr Pfwwnszhgstv76CAKDRqdnz2761Jonkdurb 2018 12:00amMarch 2018 2:26pm Amlodipine 5 mg ezexxyGuvkyhngikjf4ZWIUPjgyo8728Rfebfutx 2018 12:00amMarc 2018 2:47pmIsosorbide Mononitrate 30 mg tablet extended release 24 hr Iweoakujnmus99RFROKloadQyrrv 2018 2:[facility]pm[facility] 2018 3:03pmAngina Furosemide 40 mg IvbbkkZcciqxnoevfr78NMZUSGV@0800,034000538Rekrv 2018 11:00pmApril 2018 2:59pmAmiodarone 200 mg VmeoumOohintpresuk256EUEAQvfcp times wgmob31878Yawfd 2018 11:00pmApril 2018 2:58pmHydralazine 25 mg LquzcvTexvmkqhflfj59CKORKvhki times vospm33471Rqyho 2018 11:00pmApril 2018 2:59pmFolic Acid-Vit B6-Vit B12 (Folbee) 2.5-25-1 mg UvaeteYatfgimkhrus4PLX OTMtvfe93460Wgdzi 2018 11:00pmApril 2018 2:55pmPotassium Chloride (Klor-Con M20) 20 mEq Tablet,Er Particles/NvzjmmenTdcqraoalgde14ZCDXIJisgj573 October 18, 2018 11:00pmApril 2018 3:00pmMagnesium Oxide 400 mg (241.3 mg magnesium) RzilxbTxsakwmdmouo432LUQFVmuxp38239Emgek 2018 11:00pmApril 2018 2:56pmPovidone-Iodine 10 % CbaaiqyqOpphfbwpabeg1WTZUGWXEBWWNXAvcxz68Qteca 2018 11:pmApril 2018 3:00pmPovidone-Iodine 10 % Ointment Mjfrdmpgehlr7YRISIYAGCZFZQUYG as needed for Sternal Ccvuj31Fzgzh 2018 11:pmApril 2018 3:00pmOmeprazole 20 mg Capsule,Delayed Release(Dr/Ec) Zlmlibjqoheu86NZMFJleuf76841Evtcj 2018 11:pmApril 2018 3:00pm Aspirin 81 mg Tablet,UdfvfwssKvurqgepygpn16AOICSkjth56399Wpchd 2018 11:00pmDecember 2018 11:05amLevofloxacin 500 mg KifuhjPnvagcqnoshe834WLRX Every 48 vrvet377Ezubl 2018 11:00pmApril 2018 2:56pmMetoprolol Tartrate 25 mg FrmhbkEirvuafwhbjr29KIKDCvldn times gpsbc64122Roxlx 2018 11:pmApril 2018 2:59pmChlorhexidine Gluconate 0.12 % Mouthwash Bekkjnugkomj44ZBOSCDEP MEMThree times wqvcf90Wftqv 2018 11:00pmApril 2018 2:58pmSodium Ferric Gluconat-Sucrose (Ferrlecit) 62.5 mg/5 mL Solution Fstgciubknmx60.5MGIV-CRJRA8I38400Fitgy 2018 11:00pmApril 2018 2:56pm Heparin (Porcine) 5,000 unit/mL (1 mL) tefuerzavEgdrdkvpemot9742EOUEHGUTLIS88I59 October 18, 2018 11:00pmApril 2018 2:59pmFurosemide 40 mg Tablet Xticqcatzbrp92RPXIHTJ@0800,658433824Niygc 2018 11:pmJuly 13, 2019 11:08amAmiodarone 200 mg LokvaqRujtdqwqfosk966OOWGCayoj times nfbbc47189Rrheu 2018 11:pmJuly 13, 2019 11:05amTake 3 tablets daily until 11/02/18. On 11/03/18 reduce to one tablet daily.Hydralazine 25 mg MsrscvRqaiaowxghiz43EQKX Three times dbthg95783Iymzm 2018 11:pmJuly 13, 2019 11:07am Potassium Chloride (Klor-Con M20) 20 mEq Tablet,Er Particles/Crystals Wjfocfmqbhja89UFGYCHvwzh46457Fxejq 2018 11:pmJuly 13, 2019 11:07am Nitroglycerin 0.4 mg Tablet, SublingualDiscontinued0.4RSWKGVKHSULSX0T as needed for Fwxsem33719Ddscf 2018 11:00pmMay 09, 2024 4:58pmOmeprazole 20 mg Capsule,Delayed Release(Dr/Ec)Jvrtykjtvyku90EWTXWixxr16132Rethm 2nd, 2019 11:pmJuly 13, 2019 11:07amMetoprolol Tartrate 25 mg NbeghxOgblhyaooqyx75 MGPOThree times dzphn87626Npcdn 2018 11:pmJuly 13, 2019 11:07am Chlorhexidine Gluconate 0.12 % VdjdpazrwTasvlhrnuefr84BEJABINA MEMThree times ovxdv5071804Wpcay 2018 11:pmJuly 13, 2019 11:05amAcetaminophen 325 mg ZailgnCtyngjmlxtjn537GJRMP6T as needed for Mrwr90Nuhgi 2018 11:00pm July 13, 2019 11:04amAmlodipine 5 mg UdkwraMudeakrmmaqz7YNJSBpwui05889 October 21, 2018 11:pmJuly 13, 2019 11:08amPovidone-Iodine 10 % Ointment Ydqymxpiudxy2ECQRQBHEKQWJJGxvbr63730Fddbr 2018 11:pmJuly 13, 2019 11:07amSodium Ferric Gluconat-Sucrose (Ferrlecit) 62.5 mg/5 mL Solution Msozgslkbvwm17.5MGIV-PUSHevery abko80Pwzcm 2018 11:00pmDecember 2018 11:07amDarbepoetin Marquis In Polysorbat (Aranesp (In Polysorbate)) 25 mcg/mL HakhpolvGozsxugvugbz08RHWZN-KOOEyvcfy bfyp09Tgphc 2018 11:00pmDecember 2018 11:06amClopidogrel 75 mg TaptwjWyargumpuwzg39ZLLZZkkmi at bqejcuf4847 0Apr2018 11:00pmFebruary 2019 12:48pmOndansetron 4 mg tablet,zyzmonkmuxnzzhAqwhvgaawgfh0CFPINbpfd 8 hours as needed for nausea and owerllpo0737Cyimy 2018 11:00pmApril 2018 11:00pmApril 2018 11:02pmCyanocobalamin (Vitamin B-12) (Vitamin B-12) 1,000 mcg TabletDiscontinued 1000MCGPODailyFebruary 2019 12:00amJuly 2022 5:54pmAtorvastatin 80 mg EtfdnfMtrqolcttsna74QOZGOoagm rzozilk476324Fvdsmnyw 2019 12:00amApril 2020 2:23pmLabetalol 100 mg swkbzaLxcaxqmmckct5USFQDPdnclIqhjpzqe 2019 12:00amApril 2020 2:24pmEzetimibe 10 mg curtadRxehfedrkgqp49AKIVUipsq September 06, 2019 12:00amApril 2020 2:23pmFurosemide 20 mg tablet Gwciurmwsimc39AZQBLjnotPnbxaku 18th, 2024 11:00pmOctober 2023 1:14pm Prednisone 20 mg jznpmnMohtjizbuzve93UBRAJgbzhEkqbbad 2023 11:00pmOctober 2023 1:14pmMetoprolol Tartrate 75 mg lacriuFaiijjrczdfz48IZUPLwois daily May 08, 2024 11:00pmMay 2024 1:16pmLisinopril 10 mg tablet Dbkmvbsgdsbv70SRPOPcbbp372Qmdzxjc 2023 11:00pmMay 2024 1:16pm Omeprazole 20 mg capsule,delayed release(DR/EC)Uijqmlpykqto44BOYNSomjw684Itbxpwq 2023 11:00pmFebruary 2024 12:36pmApixaban (Eliquis) 5 mg tablet Zoirjonsfvey0AUATEorir vtbyk738621Mlgbwne 2023 11:00pmApril 2024 9:45amPrednisone 20 mg ayhpwcGphzvolmlryh61TTUQIgxhq037Tdlrcdx 2023 12:36pmNovember 2023 2:14pmAmiodarone 200 mg tabletDiscontinued0.ROUTE .XOFAHVJ41927Awrirws 2023 11:00pmFebruary 2024 12:36pmTake 2 tabs (400 mg) a day X 10 days, then decrease to 1 tab (200 mg) a dayMetoprolol Tartrate 75 mg ojsobkBinkwpaqawag93.5MGPOTwice dailyNovember 25, 2024 1:15pmMay 2024 1:03pmMetoprolol Tartrate 75 mg tsjdrzUwllocrrtwfs07NPPKDsplb daily December 02, 2024 1:03pmMay 2024 3:20pmFurosemide 40 mg ckiffdGgqvjxmzprfs19 MGPOEvery morningJuly 13, 2019 11:07amApril 2020 2:24pmedema Amlodipine 5 mg rukbihCatnqcdftuod40IRKFDynbhIyxzszjc 2018 11:07am March 31, 2021 8:32amhtnHydrocodone-Acetaminophen ([place]) 5-325 mg Tablet Nuxluqrtowsy9FARGZZcaai daily as needed for Paince2018 12:00am May 25, 2024 2:12pmLabetalol 100 mg HxjzgfWbtpdeexovhn96HGOGXfmejSdkvbwin 2018 12:00amFebruary 2019 7:48amhtnFerrous Sulfate (Iron) 325 mg (65 mg iron) JkxqoaPiftcbzypcih885GJTRMvqmpUyycp 2020 11:00pmJuly 2022 5:54pmAspirin (Aspir-81) 81 mg Tablet,Delayed Release (Dr/Ec)Cdknnigdonlr60NFOG DailyApril 2020 11:00pmJuly 2022 5:54pmCholecalciferol (Vitamin D3) (Vitamin D3) 25 mcg (1,000 unit) RzfzmbIkwfurdmsjse77AXDAXEyskfHbkqt 2020 11:00pmJuly 2022 5:54pmAmlodipine-Benazepril 10-20 mg CapsuleDiscontinued1 CAPPODailySeptember 2020 11:00pmOctober 2020 6:53amClopidogrel (Plavix) 75 mg IagqofEbhstfusxdwc72DLFMFmmbyLnzyro 2020 11:00pmOctober 2020 6:35amAmlodipine 10 mg UjraszAiybhmdhmljl35KOTOXpnwmJgncqjt 2020 11:00pmNovember 2023 2:12pmAmiodarone 200 mg poyacqJetjlnxirgjb484ZGBLVlhwz September 14, 2024 12:00amApril 2024 12:22pmOndansetron 4 mg tablet,ahwjcaflaqcrbjSuwqgwkxjhko2AWUJltuqj 6 to 8 hours as needed for Uobvdh948 September 14, 2024 12:00amApril 2024 9:45amMetoprolol Succinate 50 mg Tablet Extended Release 24 CnDzionsepequi52NLXQKcckb lyfyi61189Dxxg 2024 11:00pmJuly 2024 11:28amAspirin 81 mg Tablet,Delayed Release (Dr/Ec) Kreeecwibusf47WJOLNhlsi82064Lnxh 2024 11:00pmJuly 2024 11:28am Apixaban (Eliquis) 5 mg QaqleqWiuqpvcsbbrj7UZTHWzpto betda63912Fzjr 2024 11:00pmJuly 2024 11:28amAtorvastatin 40 mg GcahluOhoxyhkuzigd80YJADSgjnq obauvpq47Ovpg 2024 11:00pmJuly 2024 11:28amSennosides-Docusate Sodium 8.6-50 mg GnaudsDlzjmrgpqcho7WDSDGUgvtf ugeau02Uewv 2024 11:00pm May 18, 2025 2:21pmSodium Ferric Gluconat-Sucrose (Ferrlecit) 62.5 mg/5 mL ZqkiieepUavqui787KGGA-FWDBF5Q42Ohaj 2024 11:00pmComplies with drug therapy Sevelamer Carbonate 800 mg ZmrxywRistoyxgguif6231POYY8a/Day with eaqml185673Qrzn 2024 11:00pmOct2024 2:22pmOndansetron 4 mg Tablet,JpthhssimbolowFsaqtq2YROWGakmo 6 hours as needed for Nausea And Vomiting 06511Ecov 2024 11:00pmComplies with drug therapyRx Discharge Order Notice Nzqizmhsquxq0WCLSPGYKGJSCZOShzs94Idwu 2024 11:00pmOctober 2024 2:23pmAtorvastatin 40 mg UrbgptJzhzbgsbffai09YWWSMnfhk rzaaxqa45861Jrbr 2024 11:28amOctober 2024 2:18pmMetoprolol Succinate 50 mg Tablet Extended Release 24 GhPvqiphjlzpxa62HYHJMarws zgotp06457Hywz 2024 11:28amOctober 2024 2:21pmAspirin 81 mg Tablet,Delayed Release (Dr/Ec)Bkgnrrruabdt63DMLN Xtzke53375Smuu 2024 11:28amOctober 2024 2:18pmApixaban (Eliquis) 5 mg ZrrcvjUcgogy9IIXPMdtlq qmpci58780Cwus 2024 11:28amComplies with drug therapyLisinopril 5 mg KdtglxTwvjhgapxzyj1XYORMfifo dzovl27974Znkl 2024 11:00pmOctober 2024 2:19pmAmiodarone 200 mg uiabyaWpxapeanzzsz030LRVNUptxs May 2024 1:13pmOctober 2024 2:17pmLisinopril 10 mg tabletDiscontinued 5MGPODailyMa2024 1:14pmMay 2024 2:02pmHydrocodone-Acetaminophen 7.5- 325 mg gcfyqsAxjjsh3LOINOJkvxs daily as needed for wexe0FicNovember 24, 2024 11:00pm Complies with drug therapyLisinopril 5 mg goewccQtactmlqnfta3QMFWDhhkj54294Pxh 6th, 2025 11:00pmMay 2024 1:02pmMetoprolol Tartrate 75 mg tablet Kjwosjjwclez26HYZQXfrja dailyOct2024 11:00pmOct2024 3:02pm Carvedilol (Coreg) 6.25 mg tabletDiscontinued6.25MGPOTwice ehctp12647Jojilkb 27th, 2025 11:00pmDecember 2024 2:31pmmust administer with a meal/food Lisinopril 5 mg qdzhzyRoogkncaltyu4OOBZPshjhSes 14th, 2025 1:02pmJuly 2024 1:51pmClonidine Hcl 0.1 mg tabletDiscontinued0.1MGPODaily as neededDecember 01, 2024 11:00pmMay 2024 1:04pmon dilaysisClonidine Hcl 0.1 mg tabletActive0.1 MGPODaily as needed for hypertensionDecember 02, 2024 1:04pmon dialysis days as needed for elevated bpComplies with drug therapyCarvedilol (Coreg) 25 mg tablet Azymsyiqwjla04FFAKLhqjb papkd58389KfbDecember 01, 2024 11:00pmMa2024 12:04pm must administer with a meal/foodAmiodarone 200 mg tqwfflHuxvzr279TMNESfbku June 29, 2025 12:00amComplies with drug therapyLisinopril 5 mg tabletActive 5MGPODailyDece2024 12:00amComplies with drug therapyMetoprolol Tartrate 75 mg vppxcoEzewdr41UGHPVuhiz dailyDece2024 12:00amComplies with drug therapy Immunizations Immunization Event Date Not Given Reason Dose Number [employer] Lot Number Reason(s) Given Vaccine Information Statement (VIS) Detail Administration Location COVID-19 mRNA Comirkristine (emere) September 19 COVID-19 mRNA Comusha (emere)October 11OVI mRNAChadwick (emere)April 18OVID-19 mRNA Bivalent Booster (Pfizer)April 19, 2022Tetanus, Diphtheria, Pertussis (Tdap)March 31, 2013 Medical Equipment Device Date Implanted Device Details Double-lumen haemodialysis c atheter, implantable May 19, 2024 SWATI: [id number] Issuing Agency: [facility] Device Id: [id number] Expiration Date: 2024-05-21 Lot Number: [id number] haemodialysis catheter, implantableApril 2024UDI: [id number] Issuing Agency: [facility] Device Id: [id number] Expiration Date: 2028-12-19 Lot Number: [id number] patch, animal-derivedFebruary 2019UDI: [id number] Issuing Agency: [facility] Device Id: [id number] Expiration Date: 2023-12-20 Lot Number: [id number] Serial Number: [id number] BIOFLO DURAMAX 28CMMar 2018 Relevant Diagnostic Tests and/or Laboratory Data Laboratory Results Test Collection Date/Time Result Date/Time Result Interpretation Reference Range Result Comment Performing Site Potassium Level April 09, 2025 6:48am April 09, 2025 6:48am 5.2 mmol/L Above high normal 3.5-5.1 [facility] 20[facility] 7:19amNovember 2024 7:19am5.8 mmol/L Above high normal3.5-5.1 Vital Signs Vital Reading Result Reference Range Collection Date/Time Height 63 [in_i] May 18, 2025 2:45yeGtleev37.51 kgOct2024 2:27pmHeart Rate61 /nhg92-195Kuyearr 28th, 2025 2:27pmRespiratory rate18 /tlc35-78Srjsmnx 28th, 2025 2:27pmOxygen saturation by Pulse fckrhmdy71 %95-100Oct2024 2:27pmBP Kqctgnig738 mm[Hg]100-140Octu[facility] 2024 2:27pmBP Rgbeyeggo10 mm[Hg] 60-100Octuofl [facility] 2024 2:27pmBMI (Body Mass Index)22.8 kg/y4Aoovlel 2024 2:50foDqghdr31 [in_i]June 29, 2025 2:55vsIobdou07.78 kgDeceer 2024 2:34pmHeart Rate57 /tuw08-374Apkwfalc 9th, 2025 2:34pmRespiratory rate20 /min 12-24Deceer 2024 2:34pmOxygen saturation by Pulse pknluyac28 %95-100 June 29, 2025 2:34pmBP Tuoryywx801 mm[Hg]100-140[facility] 2024 2:34pmBP Yxkckagus41 mm[Hg]60-100Deceer 2024 2:34pmBMI (Body Mass Index)23.7 kg/w9Ynelqayv 2024 2:34pm Advance Directives Advance Directive Response Recorded Date/ Time Advance Directives No May 01, 2017 9:56am Insurance Providers Guarantor Lupe Butler Address [address] [place] [phone] Info.Home Phone: Payer Group Member ID Coverage Type Subscriber Relationship to Subscriber Effective Date Expiration Date Medicare Id: [id number] Luke Id: [id number] [address] [place] [id number] Home Phone: Email: [email or web address] Encounters Encounter Location(s) Arrival/Admit Date Discharge/Departure Date Discharge/Departure Disposition Provider(s) Non-patient / Non-visit -[facility] Professionhadley duque Dc April 09, 2025 7:48am Lan Soto MDNon-patient / Mzg-wzqex[facility]00KRYSTA Munsoneparted Physician/Provider Office Visit-[facility] CardiologyOct2024 3:09pmOct2024 4:00pmDischarged to home care or self care (routine discharge)Aruna Hernandez MDNon-patient / [facility] 4:00Brittanie Soto MDNon- patient / Fjf-yhfsg-[facility] 2024 7:19amAKRYSTA Altamiranoeparted Physician/Provider Office Visit-[facility] June 29, 2025 2:12pmDecember 2024 3:08pmDischarged to home care or self care (routine discharge)Aruna Hernandez MD Recent Diagnosis Onset Date Admit Date Hypertensive heart disease Unknown Octob er 2024 3:09pm Hypertension Unknown May 18 3:09pm CAD (coronary artery disease) Unknown Oc tober 2024 3:09pm History of heart bypass surgery Unknown May 18, 2025 3:09pm Iron deficiency anemia Unknown April 222024 3:09pm Hypertensive heart disease Unknown Decem armando 2024 2:12pm Hypertension Unknown June 29 2:12pm CAD (coronary artery disease) Unknown De cember 2024 2:12pm History of heart bypass surgery Unknown June 29, 2025 2:12pm Iron deficiency anemia Unknown June 29, 2025 2:12pm Assessments Diagnosis Onset Date Resolution Status Admit Date Hypertensive heart disease acuteOct2024 3:09pmHypertensioninactiveMay 18, 2025 3:09pmCAD (coronary artery disease)inactiveMay 18, 2025 3:09pmHistory of heart bypass surgeryinactiveMay 18, 2025 3:09pmIron deficiency anemiainactive May 18, 2025 3:09pmHypertensive heart diseaseacuteDecember 2024 2:12pmHypertensioninactiveDecemb2024 2:12pmCAD (coronary artery disease) inactiveDe2024 2:12pmHistory of heart bypass surgeryinactiveDecemb2024 2:12pmIron deficiency anemiainactiveDece2024 2:12pm Plan of Treatment Author Aruna Hernandez [facility] HospitalAuthoredOctober 2024 1:26pmAssessment: #Recent R SHERMAN stroke # CAD s/p 3v CABG (on 10/01/2018 NUNO-LAD, SVG-OM1, SVG-distal RCA) # HTN with atrophic right kidney and mod stenosis of left renal artery back in 02/2019. Now with labile BPs # Acute on chronic anemia - due to renal dx. No bleeding noted. # Paroxysmal nonvalvular AFib - HFK9KI2-QDRb score is >2. # ESRD on HD # History of lung adenocarcinoma (on chronic Keytruda) s/p resection of left upper lobe with recurrent right pleural effusion # Other: Snoring history, FIONA, HLD, H/o bilateral CEA, CLBP, depression. Echo 05/11/2024 ??? EF 60-65%, LVH, mildly dilated LA, mild MR and TR, RVSP 60 mmHg. Echo 05/19/2024 Limited views obtained. The EF > 70%, G1 DD, severe LVH, mildly dilated LA, R VSP 40-50 mmHg. LHC 05/28/2024: Severe [place] coronary artery disease. Widely patent grafts NUNO???LAD, S???OM, S???distal RCA (distal anastomotic occlusion of PDA branch) Echo 02/02/2025: EF >70%. Hyperdynamic LV systolic function. Evidence of hypertrophic cardiomyopathy with LVOT obstruction. Peak gradient 61 mmHg with Valsalva. Subvalvular aortic stenosis noted at the level of the LVOT. Peak gradient 61mmHg. Mildly dilated left atrium. No PFO noted. Findings suspicious for HOCM. Plan: - BP remains elevated today. Will switch Lopressor to Coreg 6.25mg BID for better BP control. - Pt is not interested in cardiac MRI to evaluate hypertrophic cardiomyopathy. - Avoid afterload reduction including ACEi/ARBs due to dynamic LVOT obstruction noted on recent ECHO. - Afib: Remains in sinus rhythm. She elected to stop Amiodarone. Continue Eliquis 5mg BID. -2 week RN visit for BP check - Follow up in 6 weeks or sooner as needed. Author Daphne Cano [facility] HospitalAuthoredDecembviviana 2024 2:36pmAssessment: #Recent R SHERMAN stroke # CAD s/p 3v CABG (on 10/01/2018 NUNO-LAD, SVG-OM1, SVG-distal RCA) # HTN with atrophic right kidney and mod stenosis of left renal artery back in 02/2019. Now with labile BPs # Acute on chronic anemia - due to renal dx. No bleeding noted. # Paroxysmal nonvalvular AFib - AQE4CL3-MGLz score is >2. # ESRD on HD # History of lung adenocarcinoma (on chronic Keytruda) s/p resection of left upper lobe with recurrent right pleural effusion # Other: Snoring history, FIONA, HLD, H/o bilateral CEA, CLBP, depression. Echo 05/11/2024 ??? EF 60-65%, LVH, mildly dilated LA, mild MR and TR, RVSP 60 mmHg. Echo 05/19/2024 Limited views obtained. The EF > 70%, G1 DD, severe LVH, mildly dilated LA, R VSP 40-50 mmHg. [facility] 05/28/2024: Severe [place] coronary artery disease. Widely patent grafts NUNO???LAD, S???OM, S???distal RCA (distal anastomotic occlusion of PDA branch) Echo 02/02/2025: EF >70%. Hyperdynamic LV systolic function. Evidence of hypertrophic cardiomyopathy with LVOT obstruction. Peak gradient 61 mmHg with Valsalva. Subvalvular aortic stenosis noted at the level of the LVOT. Peak gradient 61mmHg. Mildly dilated left atrium. No PFO noted. Findings suspicious for HOCM. Plan: - BP remains elevated today. Will switch Lopressor to Coreg 6.25mg BID for better BP control. - Pt is not interested in cardiac MRI to evaluate hypertrophic cardiomyopathy. - Avoid afterload reduction including ACEi/ARBs due to dynamic LVOT obstruction noted on recent ECHO. - Afib: Remains in sinus rhythm. She elected to stop Amiodarone. Continue Eliquis 5mg BID. -2 week RN visit for BP check - Follow up in 6 weeks or sooner as needed. Future Tests Future scheduled test information is unavailable Pending Tests Pending diagnostic test information is unavailable Future Visits Future appointment information is unavailable Future Procedures Future procedure information is unavailable Future Medications Future medication information is unavailable Patient Instructions Patient instructions are unavailable
[2025-07-02 09:40] LABS: Potassium 5.8 mmol/L (3.5-5.1)
== END 2025-07-02 09:11 | disposition home or self-care (01) ==
LOC: LAB 09:10
PROVIDERS: PCP Family Medicine; Visit Provider Internal Medicine Nephrology
DX: E87.5 Hyperkalemia (principal)
CPT/HCPCS: 36415; 84132

== ENCOUNTER 2025-07-12 10:30 | Outpatient (REF) | payer MEDICARE, SELFPAY ==
--- OUTSIDE RECORDS SUMMARY | 2025-06-29 13:00 | XMS_ITS | Encounter Summary ---
Author Organization [facility] Address [address] [place] [address] Care Team Providers Care Construction Site Crossing Guard Name Role Phone Zo Tavarez BALING MACHINE TENDER Unavailable Marcellus Valenzuela DO Primary Care Provider [phone] Marcellus Valenzuela DO Unavailable [phone] Reason for Visit * ReasonCommentsDiarrheaVomiting Encounter Details DateTypeDepartmentCare Team (Latest Contact Info)Dusynxffrpg74/09/2025 1:00 PM ESTOffice Visit [facility] [address] [facility] [address] [place] [address] Marcellus Valenzuela DO [address] [facility] [address] [place] [address] Acute gastroenteritis (Primary Dx); Diarrhea, unspecified type; Nausea and vomiting, unspecified vomiting type; Essential hypertension Social History Tobacco UseTypesPacks/DayYears UsedDateSmoking Tobacco: FormerCigarettesQuit: [...] you get together with friends or relatives?Patient /25/2023How often do you attend shinto or oriental orthodox services?Patient ebhqqzst02/25/2023o you belong to any clubs or organizations such as shinto groups, unions, [employer] or athletic cristobal ups, or school groups?Patient pptrnfko95/25/2023How often do you attend meetings of the clubs or organizations you belong to?Patient nyabpvai91/25/2023re you , , , , never , or living with a partner? Gekrffl5104/15/2023UDIT-CAnswerDate RecordedQ1: How often do you have a [...] hard at all04/15/2023HQ-2AnswerDate RecordedPatient Health Questionnaire-2 Score0 06/29/2025Fin[facility] [place] of Occupational Health - Occupational Stress QuestionnaireAnswerDate [...] steady place to sleep or slept in [facility] (including now)?No04/15/2023CommentsNoSex and Gender InformationValueDate RecordedSex Assigned at BirthNot on fileLegal Sex Lobptk7210/03/2022 6:53 PM EDTGender IdentityNot on fileSexual OrientationNot on filedocumented as of this encounter Last Filed Vital Signs Vital SignReadingTime TakenCommentsBlood Dgfewtko919/9206/29/2025 1:18 PM EST Msohy287506/29/2025 1:18 PM OPRAtblyiicgdk80.1 ??C (97 ??F)06/29/2025 1:18 PM EST Respiratory Llax6544 1:18 PM ESTOxygen Hsvucznhug16%06/29/2025 1:18 PM ESTInhaled Oxygen Concentration--Uccyip73.1 kg (128 lb)06/29/2025 1:18 PM EST Umitac887 cm (5' 3 )06/29/2025 1:18 PM ESTBody Mass Index22.6706/29/2025 1:18 PM ESTdocumented in this encounter Functional Status * Over the past 2 weeks, how often have you been bothered by any of the following problems?QuestionAnswerDate of AssessmentAuthorLittle interest or pleasure in doing thingsNot at all06/29/2025 1:18 PM Keara Kidd MA Feeling down, depressed, or hopelessNot at all06/29/2025 1:18 PM Keara Kidd MAPatient Health Questionnaire-2 Zfmun49208/30/2024 1:18 PM Keara Kidd MA documented as of this encounter Progress Notes * Marcellus Valenzuela, DO - 06/29/2025 1:00 PM EST Images from the original note were not included. FAMILY MEDICINE NOTE Chief Complaint: Diarrhea and Vomiting HPI: Diarrhea Had diarrhea for three weeks, with worsening symptoms over the last few days described as non-stop.Took one dose of Pepto-Bismol at home. Denies blood in stools. Reports stool appeared similar to Jell-O after eating Jell-O. Possible exposure to old cabbage and food prepared during . Nausea and Vomiting Experiencing daily vomiting for several weeks. Nausea persists despite use of Zofran at home, whichdoes not provide relief. Attempts to avoid vomiting after taking her daily medications to prevent uncertainty about medication absorption. Blood Pressure Issues Reports episodes of low blood pressure, sometimes associated with dizziness. Noted changes after starting a new blood pressure medication, initially causing low readings but subsequently not affecting blood pressure. Blood pressure readings at home differ from those during dialysis. Dialysis Describes dialysis as difficult and associated with feeling unwell. Reports issues with blood pressure cuffs during dialysis. Hydration and Diet Maintains hydration with cranberry juice and water, sometimes frozen to make it slushy. SUBJECTIVE: Past Medical History SURGICAL/SOCIAL ALLERGIES: Medical History[1] Surgical History[2] Social History[3] Allergies[4] OBJECTIVE: 06/29/2025 1:18 PM 04/27/2025 1:31 PM 02/23/2025 1:39 PM Vitals BMI 22.67 kg/m2 22.67 kg/m2 22.14 kg/m2 BSA (m2) 1.61 m2 1.61 m2 1.59 m2 Systolic 162 120 110 Diastolic 92 70 72 Heart Rate 68 61 75 SpO2 98 % 98 % 99 % Temp 97 ??F 98 ??F 96.6 ??F Resp 20 18 20 Height (in) 5' 3 5' 3 5' 3 Weight (lb) 128 128 125 Visit Report Report Report Physical Exam Constitutional: Appearance: Normal appearance. Cardiovascular: Rate and Rhythm: Normal rate and regular rhythm. Heart sounds: No murmur heard. No friction rub. No gallop. Pulmonary: Breath sounds: Normal breath sounds. No wheezing, rhonchi or rales. Abdominal: General: Abdomen is flat. Bowel sounds are normal. There is no distension. Palpations: Abdomen is soft. There is no mass. Tenderness: There is no abdominal tenderness. There is no guarding. Musculoskeletal: General: Normal range of motion. Skin: General: Skin is warm. Neurological: General: No focal deficit present. Mental Status: She is alert. Mental status is at baseline. Psychiatric: Mood and Affect: Mood and affect normal. Behavior: Behavior normal. ASSESSMENT AND PLAN: Lupe was seen today for diarrhea and vomiting. Diagnoses and all orders for this visit: Acute gastroenteritis (Primary) Diarrhea, unspecified type - loperamide (Imodium A-D) 2 MG tablet; Take 1-2 tablets (2-4 mg) by mouth 4 (four) times a day as needed for diarrhea for up to 10 days Max of 4 tablets in 24 hours - GASTROINTESTINAL PLUS PARASITES (HTRX); Future - GASTROINTESTINAL PLUS PARASITES (HTRX) Nausea and vomiting, unspecified vomiting type - GASTROINTESTINAL PLUS PARASITES (HTRX); Future - GASTROINTESTINAL PLUS PARASITES (HTRX) Essential hypertension Acute gastroenteritis: - Ongoing diarrhea with associated nausea and vomiting; infectious etiology discussed (viral vs bacterial) - Prescribed loperamide (Imodium) for short-term use to reduce stool frequency. Ordered rectal swabfor stool pathogen culture to evaluate viral vs bacterial etiology; results to be communicated within 48 hours, possibly by tomorrow. Recommended hydration with water and oral electrolytes (e.g., Gatorade, Pedialyte). Advised bland diet to reduce gastrointestinal irritation. Suggested black tea preparation (prolonged steeping ~20 minutes) to slow gastrointestinal transit. Zofran noted as not helpful previously; no new antiemetic initiated. Will review culture results and adjust management accordingly. Also advise patient to use bland diet to reintroduce food to help with GI upset and diarrhea. HTN: - uncontrolled hypertension in office today. Blood pressure management deferred to cardiology sinceshe is seeing them in a couple hours; anticipate potential medication adjustments by cardiology. - Deferred antihypertensive changes to cardiology visit today; instructed to call to update medication list if changes are made. Patient's Medications New Prescriptions LOPERAMIDE (IMODIUM A-D) 2 MG TABLET Take 1-2 tablets (2-4 mg) by mouth 4 (four) times a day as needed for diarrhea for up to 10 days Max of 4 tablets in 24 hours Previous Medications ALPRAZOLAM (XANAX) 0.5 MG TABLET Take 1 tablet (0.5 mg) by mouth in the morning and 1 tablet (0.5 mg) before bedtime. AMIODARONE (PACERONE) 200 MG TABLET Take 100 mg by mouth Daily APIXABAN (ELIQUIS) 5 MG TABLET Take 5 mg by mouth in the morning and 5 mg before bedtime. ASPIRIN 81 MG EC TABLET Daily CARVEDILOL (COREG) 6.25 MG TABLET Take 6.25 mg by mouth in the morning and 6.25 mg in the evening. Take with meals. CLONIDINE (CATAPRES) 0.1 MG TABLET Take 0.1 mg by mouth Daily as needed for high blood pressure FERRIC GLUCONATE (FERRLECIT) 12.5 MG/ML INJECTION Q7D LISINOPRIL 5 MG TABLET Take 5 mg by mouth Daily as needed METOPROLOL SUCCINATE XL (TOPROL-XL) 50 MG 24 HR TABLET Take 1 tablet (50 mg) by mouth in the morning and 1 tablet (50 mg) before bedtime. ONDANSETRON ODT (ZOFRAN-ODT) 4 MG DISINTEGRATING TABLET Take 4 mg by mouth every 6 (six) hours if needed ROSUVASTATIN (CRESTOR) 5 MG TABLET Take 1 tablet (5 mg) by mouth Daily for 10 days, THEN 2 tablets (10 mg) Daily for 20 days. SENNA-DOCUSATE (TORSTEN-COLACE) 8.6-50 MG TABLET Take 1 tablet by mouth Daily Modified Medications No medications on file Discontinued Medications No medications on file Follow up in about 4 weeks (around 07/27/2025) for Recheck. This note was prepared in part with the assistance of dictation and Rewarding Return technologies; minor errors or omissions may be present. Marcellus Valenzuela DO [1] Past Medical History: Diagnosis Date Arteriosclerosis of kidney 03/03/2021 Atherosclerosis of [place] coronary artery of [place] heart without angina pectoris 12/21/2022 Cough 08/15/2001 Difficult intubation 12/21/2022 History of carotid endarterectomy 12/21/2022 History of primary malignant neoplasm of lung 12/12/2016 Hypertensive urgency 02/16/2025 Mixed hyperlipidemia 09/18/2017 Obesity (BMI 30.0-34.9) 12/21/2022 Overweight with body mass index (BMI) 25.0-29.9 01/08/2018 Paroxysmal atrial fibrillation (HCC) 12/03/2018 Pseudomonas aeruginosa infection 05/25/2024 Referral of patient 10/07/2015 [2] Past Surgical History: Procedure Laterality Date CT GUIDED PERCUTANEOUS BIOPSY LUNG 05/22/2021 CT GUIDED PERCUTANEOUS BIOPSY LUNG 05/22/2021 CT GUIDED PERCUTANEOUS BIOPSY LUNG 06/30/2015 CT GUIDED PERCUTANEOUS BIOPSY LUNG 06/30/2015 CT GUIDED PERCUTANEOUS BIOPSY MEDIASTINUM 06/30/2015 CT GUIDED PERCUTANEOUS BIOPSY MEDIASTINUM 06/30/2015 [3] Social History Tobacco Use Smoking status: Former Current packs/day: 0.00 Types: Cigarettes Quit date: 06/2023 Years since quittin.0 Smokeless tobacco: Current Types: Snuff Substance Use Topics Alcohol use: Never Drug use: Never [4] Allergies Allergen Reactions Morphine Unknown Other Reaction(s): Hallucinating Sulfa Antibiotics Unknown and Anaphylaxis Acetaminophen Other Reaction(s): Hypertension Carvedilol Other Reaction(s): foot drop slurring words, dry mouth Nickel Other Reaction(s): Rash Nsaids Other Reaction(s): Hypertension Latex Itching and Rash Other Reaction(s): Rash documented in this encounter Plan of Treatment DateTypeDepartmentCare Team (Latest Contact Info)Xwqugzaarbr78/07/2026 11:20 AM ESTOffice Visit [facility] [address], [facility] [address] [place] [id number] Marcellus Valenzuela DO [address] [facility] [address] [place] [address] documented as of this encounter Procedures Procedure NamePriorityDate/TimeAssociated DiagnosisCommentsGASTROINTESTINAL PLUS PARASITES (HTRX)Idqmkpm3006/29/2025 1:49 PM EST Diarrhea, unspecified type Nausea and vomiting, unspecified vomiting type documented in this encounter Results * GASTROINTESTINAL PLUS PARASITES (HTRX) (06/29/2025 1:49 PM EST)ComponentValue Ref RangeTest MethodAnalysis TimePerformed AtPathologist SignatureADENOVIRUS [id number] - 31.004 ppm06/30/2025 8:20 AM ESTHealthTrackRx at [facility] ADENOVIRUS H42-72Cnh Jtdvsjml89.000 - 31.004 ppm06/30/2025 8:20 AM EST [facility] at LabPortCAMPYLOBACTER SPP (COLI, JEJUNI, UPSALIENSIS)023.000 - 31.263 ppm06/30/2025 8:20 AM ESTHealthTrackRx at LabPortCAMPYLOBACTER SPP (COLI, JEJUNI, UPSALIENSIS)Not Vklhxibv13.000 - 31.263 ppm06/30/2025 8:20 AM ESTHealthTrackRx at LabPortENTEROAGGREGATIVE E. COLI (EAEC)019.691 - 24.689 ppm06/30/2025 8:20 AM ESTHealthTrackRx at LabPortENTEROAGGREGATIVE E. COLI (EAEC)Not Ckjspazv81.691 - 24.689 ppm06/30/2025 8:20 AM ESTHealthTrackRx at LabPortENTEROINVASIVE E. COLI (EIEC)-SHIGELLA PTP492.691 - 24.689 ppm 06/30/2025 8:20 AM ESTHealthTrackRx at LabPortENTEROINVASIVE E. COLI (EIEC)- SHIGELLA SPPNot Pduwqdrr55.691 - 24.689 ppm06/30/2025 8:20 AM ESTHealthTrackRx at LabPortENTEROPATHOGENIC E. COLI (EPEC)019.691 - 24.689 ppm06/30/2025 8:20 AM ESTHealthTrackRx at LabPortENTEROPATHOGENIC E. COLI (EPEC)Not Detected 19.691 - 24.689 ppm06/30/2025 8:20 AM ESTHealthTrackRx at [facility] ENTEROTOXIGENIC E. COLI (ETEC)019.691 - 24.689 ppm06/30/2025 8:20 AM EST [facility]OT[facility]. COLI (ETEC)Not Cbdxazcj32.691 - 24.689 ppm06/30/2025 8:20 AM ESTHealthTrackRx at LabSt. [facility] HospitalNOROVIRUS (GENOGROUP 1, 2)023.000 - 30.251 ppm06/30/2025 8:20 AM ESTHealthTrackRx at [facility] NOROVIRUS (GENOGROUP 1, 2)Not Fgylhqvk95.000 - 30.251 ppm06/30/2025 8:20 AM ESTHealthTrackRx at LabPortROTAVIRUS A, B, C023.000 - 31.736 ppm06/30/2025 8:20 AM ESTHealthTrackRx at LabPortROTAVIRUS A, B, CNot Npljrgiq61.000 - 31.736 ppm06/30/2025 8:20 AM ESTHealthTrackRx at AorFxpkEXLILNNIJJ649.000 - 30.960 ppm06/30/2025 8:20 AM ESTHealthTrackRx at [facility] ChildrenSALMONELLANot Detected 23.000 - 30.960 ppm06/30/2025 8:20 AM ESTHealthTrackRx at [facility] TOXIN- PRODUCING E. COLI (STEC)019.691 - 24.689 ppm06/30/2025 8:20 AM EST [facility] TOXIN- PRODUCING E. COLI (STEC)Not Detected 19.691 - 24.689 ppm06/30/2025 8:20 AM ESTHealthTrackRx at [facility] TOXIN- PRODUCING E. COLI O157 (STEC O157)019.691 - 24.689 ppm06/30/2025 8:20 AM EST [facility] TOXIN- PRODUCING E. COLI O157 (STEC O157)Not Asihmzta94.691 - 24.689 ppm06/30/2025 8:20 AM ESTHealthTrackRx at [facility] Specimen (Source)Anatomical Location / LateralityCollection Method / Volume Collection TimeReceived YbbvGgqlmgo67/09/2025 1:49 PM EST06/30/2025 2:46 AM EST Narrative Authorizing ProviderResult TypeResult StatusDaniraheem Valenzuela DOLAB BLOOD ORDERABLES Edited Result - FinalPerforming OrganizationAddressCity/State/ZIP CodePhone Number [facility] [address] [phone] documented in this encounter Visit Diagnoses Diagnosis Acute gastroenteritis- Primary Other and unspecified noninfectious gastroenteritis and colitis Diarrhea, unspecified type Nausea and vomiting, unspecified vomiting type Essential hypertension Unspecified essential hypertension documented in this encounter Additional Health Concerns AssessmentNoted TimePHQ-9 Depression Total Score: 16002/23/2025 1:37 PM EDT documented as of this encounter Care Teams Team MemberRelationshipSpecialtyStart DateEnd Date Marcellus Valenzuela DO [address] [place] [address] PCP - GeneralFamily Medicine02/17/25 Marcellus Valenzuela DO [address] [place] [address] PCP - Carolynn KEN04/21/25 Zo Tavarez LSW [address] [place] [address] Social WorkerFahily Medicine02/22/23documented as of this encounter
--- OUTSIDE RECORDS SUMMARY | 2025-07-12 10:34 | XMS_ITS | Encounter Summary ---
Author Organization [facility] Healthcare Address [address] [facility] [place] [address] Care Team Providers Care Pediatric Cns Name Role Phone Zo Tavarez Unavailable Marcellus Valenzuela DO Primary Care Provider [phone] Marcellus Valenzuela DO Unavailable [phone] Encounter Details DateTypeDepartmentCare Team (Latest Contact Info)Itgazbrdeyy70/17/2025Patient Outreach [facility] POPULATION [facility] [address] [place] [phone] Zo Tavarez LSW [address] [place] [address] Social History Tobacco UseTypesPacks/DayYears UsedDateSmoking Tobacco: FormerCigarettesQuit: [...] you get together with friends or relatives?Patient mbljksqu29/25/2023How often do you attend latter-day or congregational services?Patient /25/2023o you belong to any clubs or organizations such as latter-day groups, unions, fraternal or athletic cristobal ups, or school groups?Patient afatdyaq50/25/2023How often do you attend meetings of the clubs or organizations you belong to?Patient pwoxfmrv59/25/2023re you , , , , never , or living with a partner? Rpqylsi6504/15/2023UDIT-CAnswerDate RecordedQ1: How often do you have a [...] hard at all04/15/2023HQ-2AnswerDate RecordedPatient Health Questionnaire-2 Score0 06/29/2025[facility] [place] of Occupational Health - Occupational Stress QuestionnaireAnswerDate [...] RecordedSex Assigned at BirthNot on fileLegal Sex Nnqrte1410/03/2022 6:53 PM EDTGender IdentityNot on fileSexual OrientationNot on filedocumented as of this encounter Progress Notes * PEDRO Ramires - 07/07/2025 11:21 AM EST Attempted to contact pt x 2 for monthly monitor. No answer or VM. Mailbox full. <July 07, 2025, 11:23 - PEDRO Ramires> No calls back from pt, closing encounter. documented in this encounter Plan of Treatment DateTypeDepartmentCare Team (Latest Contact Info)Xrvwepopcpk11/07/2026 11:20 AM ESTOffice Visit [facility] [place] [facility] [address], [address] [place] [address] Marcellus Valenzuela DO [address] [place] [address] documented as of this encounter Visit Diagnoses Diagnosis Essential (primary) hypertension- Primary Unspecified essential hypertension Stage 3 chronic kidney disease, unspecified whether stage 3a or 3b CKD ([facility] documented in this encounter Additional Health Concerns AssessmentNoted TimePHQ-9 Depression Total Score: 1:37 PM EDT documented as of this encounter Care Teams Team MemberRelationshipSpecialtyStart DateEnd Date Marcellus Valenzuela DO [address] [place] [address] PCP - GeneralFamily Medicine02/17/25 Marcellus Valenzuela DO [address] [place] [address] PCP - Carolynn KEN04/21/25 Zo Tavarez, PEDRO [address] [place] [address] Social WorkerFamily Medicine02/22/23documented as of this encounter
--- OUTSIDE RECORDS SUMMARY | 2025-07-12 10:34 | XMS_ITS | Encounter Summary ---
Author Organization [facility] Address [address] [place] [address] Care Team Providers Care Automatic Data Processing Planner Name Role Phone Zo Tavarez DRY PLACER MACHINE OPERATOR Unavailable Marcellus Valenzuela DO Primary Care Provider [phone] Marcellus Valenzuela DO Unavailable [phone] Encounter Details DateTypeDepartmentCare Team (Latest Contact Info)Anjgqlnfphb15/10/2025Results Follow-Up [facility] [address] [facility] , [address] [place] [address] Marcellus Valenzuela DO [address] [facility] [address] [place] [address] GASTROINTESTINAL PLUS PARASITES (HTRX) Social History Tobacco UseTypesPacks/DayYears UsedDateSmoking Tobacco: FormerCigarettesQuit: [...] you get together with friends or relatives?Patient hquozjjn03/25/2023How often do you attend jain or mandaeism services?Patient /25/2023o you belong to any clubs or organizations such as jain groups, [employer], [employer] or athletic [employer], or school groups?Patient dfgucmqu35/25/2023How often do you attend meetings of the clubs or organizations you belong to?Patient twelmpvy75/25/2023re you , , , , never , or living with a partner? Qvxfhro5604/15/2023UDIT-CAnswerDate RecordedQ1: How often do you have a [...] hard at all04/15/2023HQ-2AnswerDate RecordedPatient Health Questionnaire-2 Score0 06/29/2025[facility] [place] of Occupational Health - Occupational Stress QuestionnaireAnswerDate [...] RecordedSex Assigned at BirthNot on fileLegal Sex Akoclt9910/03/2022 6:53 PM EDTGender IdentityNot on fileSexual OrientationNot on filedocumented as of this encounter Miscellaneous Notes * Telephone Encounter - Keara Burgos MA - 07/01/2025 4:07 PM EST ----- Message from Dr. Marcellus Valenzuela sent at 06/30/2025 9:45 AM EST ----- Please advise patient that her culture came back negative for the common bacteria and viruses that cause infectious diarrhea. This is reassuring that it is a more functional type of diarrhea. I would recommend trying the management and treatment that I prescribed yesterday to get the diarrheato calm down ----- Message ----- From: Nicole Telinetcyn Lab Results In Sent: 06/30/2025 9:34 AM EST To: Marcellus Valenzuela DO documented in this encounter Plan of Treatment DateTypeDepartmentCare Team (Latest Contact Info)Dgyebfouxda15/07/2026 11:20 AM ESTOffice Visit [facility][1] [address], [address] [place] [address] Marcellus Valenzuela DO [address] [place] [address] documented as of this encounter Visit Diagnoses Not on filedocumented in this encounter Additional Health Concerns AssessmentNoted TimePQ-9 Depression Total Score: 16002/23/2025 1:37 PM EDT documented as of this encounter Care Teams Team MemberRelationshipSpecialtyStart DateEnd Date Marcellus Valenzuela DO [address] [facility] [address] [place] [address] PCP - GeneralFamily Medicine02/17/25 Marcellus Valenzuela DO [address] [facility] [place] [address] PCP - Carolynn KEN04/21/25 Zo Tavarez LSW [address] [place] [address] Social WorkerFamily Medicine02/22/23documented as of this encounter
--- OUTSIDE RECORDS SUMMARY | 2025-07-12 10:34 | XMS_ITS ---
Author Organization [facility] Address [address] [place], [place] [address] Care Team Providers Care Draw Frame Operator Name Role Phone Jayy Guzman MD Primary Care Provider [phone] Jie Johnson APRN.WINE PASTEURIZER Unavailable [phone] Roxana Wagner RN Unavailable [phone] Active Problems ProblemNoted DateDiagnosed Date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, right01/15/2023lood pressure wrqdpuzuimt85/06/2023VD (peripheral vascular disease)3Difficult pakcarkasl73/02/2023History of carotid jctnlithxsfqms10/02/4044Faogwk32/02/2023therosclerosis of [place] coronary artery of [place] heart without angina ynefabbd95/02/2023OSA (obstructive sleep apnea)12/21/20221379Rnepqtxzbavo54/02/2023Opioid use12/21/2022Obesity (BMI 30.0-34.9)12/21/20225873DHVXWSO36/22/2010 Overview (09/13/2009): 58 y/o female s/p L [...] require SNP today then d/c central line. Rnyzjy8809/11/2009 Overview (09/11/2009): 09/11/09 - III unit PRBC possible GI source. TIA (transient ischemic attack)09/08/20099256Cmkbt53/25/2002Anxiety and depression Overview (09/13/2009): Not on SSRI [...]
--- OUTSIDE RECORDS SUMMARY | 2025-07-12 10:34 | XMS_ITS | Encounter Summary ---
Author Organization [facility] Address [address] [place] [address] Care Team Providers Care Costing Manager Name Role Phone Zo Tavarez HIDE SELECTOR Unavailable Marcellus Valenzuela DO Primary Care Provider [phone] Marcellus Valenzuela DO Unavailable [phone] Encounter Details DateTypeDepartmentCare Team (Latest Contact Info)Bwxfktteloi14/09/2025amboo flowsheet [facility] [address], [address] [place] [address] Marcellus Valenzuela DO [address] [facility] [address] [place] [address] Social History Tobacco UseTypesPacks/DayYears UsedDateSmoking Tobacco: FormerCigarettesQuit: [...] you get together with friends or relatives?Patient qrobbdwz69/25/2023How often do you attend uatsdin or scientology services?Patient ncjeifrn53/25/2023o you belong to any clubs or organizations such as uatsdin groups, unions, [employer] or athletic cristobal ups, or school groups?Patient /25/2023How often do you attend meetings of the clubs or organizations you belong to?Patient jtoqqvmz48/25/2023re you , , , , never , or living with a partner? Crbhfsj0604/15/2023UDIT-CAnswerDate RecordedQ1: How often do you have a [...] hard at all04/15/2023HQ-2AnswerDate RecordedPatient Health Questionnaire-2 Score0 06/29/2025[facility] [place] of Occupational Health - Occupational Stress QuestionnaireAnswerDate [...] RecordedSex Assigned at BirthNot on fileLegal Sex Endapm5510/03/2022 6:53 PM EDTGender IdentityNot on fileSexual OrientationNot on filedocumented as of this encounter Plan of Treatment DateTypeDepartmentCare Team (Latest Contact Info)Ezkjphqasbl31/07/2026 11:20 AM ESTOffice Visit [facility] [address], [address] [place] [address] Marcellus Valenzuela DO [address] [place] [address] documented as of this encounter Visit Diagnoses Not on filedocumented in this encounter Additional Health Concerns AssessmentNoted TimePHQ-9 Depression Total Score: 16002/23/2025 1:37 PM EDT documented as of this encounter Care Teams Team MemberRelationshipSpecialtyStart DateEnd Date Marcellus Valenzuela DO [address] [place] [address] PCP - GeneralFamily Medicine02/17/25 Marcellus Valenzuela DO [address] [place] [address] PCP - Carolynn KEN04/21/25 Zo Tavarez, PEDRO [address] [place] [address] Social WorkerFamily Medicine02/22/23documented as of this encounter
--- OUTSIDE RECORDS SUMMARY | 2025-07-12 10:34 | XMS_ITS | Encounter Summary ---
Author Organization [facility] Address [address] [place] [address] Care Team Providers Care Canvas Shop Laborer Name Role Phone Zo Tavarez ADULT DAYCARE COORDINATOR Unavailable Marcellus Valenzuela DO Primary Care Provider [phone] Marcellus Valenzuela DO Unavailable Encounter Details DateTypeDepartmentCare Team (Latest Contact Info)Wcggsanyqiu38/12/2025Clinisync Result Encounter [facility] External Department Unsolicited Provider, Generic External Data Social History Tobacco UseTypesPacks/DayYears UsedDateSmoking Tobacco: FormerCigarettesQuit: [...] with family, friends, or neighbors?Three times a week09/25/2023How often do you get together with friends or relatives?Patient rxpbzsok36/25/2023How often do you attend spiritism or adventism services?Patient xywmrdpb69/25/2023o you belong to any clubs or organizations such as spiritism groups, unions, fraternal or athletic cristobal ups, or school groups?Patient gaklthkj56/25/2023How often do you attend meetings of the clubs or organizations you belong to?Patient pucpgnha75/25/2023re you , , , , never , or living with a partner? Vbvgcmz2004/15/2023UDIT-CAnswerDate RecordedQ1: How often do you have a [...] hard at all04/15/2023HQ-2AnswerDate RecordedPatient Health Questionnaire-2 Score0 06/29/2025[facility] [place] of Occupational Health - Occupational Stress QuestionnaireAnswerDate [...] RecordedSex Assigned at BirthNot on fileLegal Sex Hifiyi2310/03/2022 6:53 PM EDTGender IdentityNot on fileSexual OrientationNot on filedocumented as of this encounter Plan of Treatment DateTypeDepartmentCare Team (Latest Contact Info)Bikkkdocxrw22/07/2026 11:20 AM ESTOffice Visit [facility] [address], [address] [place] [address] NicolasMarcellus zhou, DO [address] [facility] [address] [place] [address] documented as of this encounter Procedures Procedure NamePriorityDate/TimeAssociated DiagnosisCommentsALL POTASSIUMRoutine 07/02/2025 7:25 AM EST documented in this encounter Results * (ABNORMAL) ALL POTASSIUM (07/02/2025 7:25 AM EST)ComponentValueRef RangeTest MethodAnalysis TimePerformed AtPathologist SignaturePOTASSIUM5.8(H)3.5 - 5.1 mmol/LTBHSpecimen (Source)Anatomical Location / LateralityCollection Method / VolumeCollection TimeReceived Time07/02/2025 7:25 AM EST07/02/2025 9:23 AM EST Narrative [facility] - 07/02/2025 9:45 AM EST [facility] Authorizing ProviderResult TypeResult StatusGeneric External Data Provider CLINISYNCFinal ResultPerforming OrganizationAddressCity/State/ZIP CodePhone Number [facility] documented in this encounter Visit Diagnoses Not on filedocumented in this encounter Additional Health Concerns AssessmentNoted TimePHQ-9 Depression Total Score: 16002/23/2025 1:37 PM EDT documented as of this encounter Care Teams Team MemberRelationshipSpecialtyStart DateEnd Date Marcellus Valenzuela DO [address] [place] [address] PCP - [facility]Compass [facility] Healthcarely Medicine02/17/25 Marcellus Valenzuela DO [address] [place] [address] PCP - Carolynn KEN04/21/25 Zo Tavarez, PEDRO [address] [place] [address] Social WorkerFamily Medicine02/22/23documented as of this encounter
--- OUTSIDE RECORDS SUMMARY | 2025-07-12 10:34 | XMS_ITS | Clinical Summary ---
Author Organization [facility] Address [address] [place] [address] Care Team Providers Care Naval Gunfire Liaison Officer Name Role Phone Jayy Guzman MD Primary Care Provider [phone] Allergies Active AllergyReactionsCriticalityNoted KgzbPiewsnvzFhqpufhwni30/07/2016 Fanwvwrwzagvx62/07/2016Diphth-Acell Pertussis-Vvcxwib7107/28/2015 Medications MedicationSigDispense QuantityRefillsLast FilledStart DateEnd DateStatus Flaxseed, [...] DateDiagnosed DateLeft upper lobe genetics unknown lung zyvisofjyvzpfc74/15/2015 Family History Medical HistoryRelationNameCommentsHypertensionFatherStrokeMotherLung Cancer Sister 1Lung CancerSister 2RelationNameStatusCommentsFatherDeceasedMother DeceasedSister 1AliveSister 2Deceased Social History Tobacco UseTypesPacks/DayYears UsedDateSmoking Tobacco: Every DayCigarettes0.543 Smokeless Tobacco: NeverAlcohol UseStandard Drinks/WeekCommentsYes1 (1 standard drink = 0.6 oz pure alcohol)CommentsUnknownSex and Gender Information ValueDate RecordedSex Assigned at BirthNot on fileLegal YrcCheliw87/28/2015 1:45 PM ESTGender IdentityNot on fileSexual OrientationNot on file Last Filed Vital Signs Vital SignReadingTime TakenCommentsBlood Afcocgjc161/90007/28/2015 2:17 PM EST Yrnaf014707/28/2015 2:17 PM CNXDelgdabvbwo14.3 ??C (97.4 ??F)07/28/2015 2:17 PM ESTRespiratory Hmra708107/28/2015 2:17 PM ESTOxygen Ncmthhqqby31%07/28/2015 2:17 PM ESTInhaled Oxygen Concentration--Hmfgmn96.4 kg (161 lb 12.8 oz)07/28/2015 2:17 PM QXRJetbkp714 cm (5' 2.99 )07/28/2015 2:17 PM ESTBody Mass Index28.67 07/28/2015 2:17 PM EST Plan of Treatment Health MaintenanceDue DateLast DoneCommentsDEXA SCAN WOPSBZYZWI32/17/1951 HEPATITIS C VIRUS ELFUODWDN35/17/1953CERVICAL CANCER SCREENING DISCUSSION 1973LIPID IRKEQVCXI22/17/1993MAMMOGRAM SCREENING GVUTUJVRKD01/17/1993 COLORECTAL CANCER SCREENING FQNQUSODEP82/17/1998PNEUMOCOCCAL VACCINE SERIES (1 of 1 - PCV)2002ZOSTER (SHINGLES) VACCINE (1 of 2)2002COVID-19 VACCINE (1 - 2024- season)2025INFLUENZA VACCINE (#1)2025RSV VACCINE (1 - 1-dose 75+ series)11/06/2027HEP B VACCINEAged OutNo longer eligible based on patient's age to complete this topic Insurance Care Teams Team MemberRelationshipSpecialtyStart DateEnd Date Jayy Guzman MD [address] [place] [address] PCP - [facility]Faboston [facility] Medicine07/28/15
--- OUTSIDE RECORDS SUMMARY | 2025-07-12 10:34 | XMS_ITS | Clinical Summary ---
Author Organization [facility] Address [address] [place] [address] Phone Care Team Providers Care Bag Making Machine Tender Name Role Phone Jayy Guzman MD Primary Care Provider [phone] Social History Tobacco UseTypesPacks/DayYears UsedDateSmoking Tobacco: Never Assessed CommentsUnknownSex and Gender InformationValueDate RecordedSex Assigned at Not on fileLegal CpaUndefl87/25/2022 10:58 PM ESTGender IdentityNot on file Sexual OrientationNot on file Last Filed Vital Signs Vital SignReadingTime TakenCommentsBlood Aehrcsqp919/8308/04/2021 11:05 AM EST Shljg4541/14/2022 11:05 AM PRFNoskccjosza30.3 ??C (97.3 ??F)08/04/2021 11:05 AM ESTRespiratory Pqak197808/04/2021 11:05 AM ESTOxygen Fnkujydikk16%08/04/2021 11:05 AM ESTInhaled Oxygen Concentration--Qyslyt02 kg (174 lb 1 oz)08/04/2021 11:05 AM KBSSrpwov836.6 cm (5' 4 )08/04/2021 11:05 AM ESTBody Mass Index29.8808/04/2021 11:05 AM EST Plan of Treatment Health MaintenanceDue DateLast DoneCommentsCT Gebzdidfulfe76/17/1953Colonoscopy 3Colorectal Cancer Nxjezsscs38/17/1953FIT-DNA (Cologuard)1952FIT 1952Lipid Panel04/17/1953Medicare Annual Wellness Visit (AWV)1950 Uilpvpgoesadt26/17/1953MMR Vaccines (1 of 1 - Standard series)1953 Hepatitis C Mbclyjljg23/17/1971CKD: Urine Protein Vgyrjdbjn52/17/1972 Pneumococcal Vaccine (1 of 2 - PCV)11/06/1971DTaP/Tdap/Td Vaccines (1 - Tdap) 11/05/19742517Sguttldmo01/17/1993RSV High Risk: (Elderly (60+) or Population) (1 [...] Advance Directives For more information, please contact: [phone] (Available ) TypeDate RecordedPatient RepresentativeExplanationHealthcare Power of Atty 1Living Will07/21/2021 Care Teams Team MemberRelationshipSpecialtyStart DateEnd Date Jayy Guzman MD [address] [place] [address] [facility]03/01/15
--- OUTSIDE RECORDS SUMMARY | 2025-07-12 10:35 | XMS_ITS | Clinical Summary ---
Author Organization [facility] Address [address] [place], [place] [address] Care Team Providers Care Supervisor Polishing Name Role Phone Jayy Guzman MD Primary Care Provider [phone] Jie Johnson APRN.NETWORK OPERATIONS TECHNICIAN Unavailable [phone] Roxana Wagner RN Unavailable [phone] Allergies Active AllergyReactionsCriticalityNoted BpduItznvporHtknxNqcpxot91/23/2024 MorphineMental Status WidkrzFokq93/18/2010Nitrofuran Zbmypgzhh10/17/2001Sulfa (Sulfonamide Antibiotics)07/07/2001 Medications MedicationSigDispense QuantityRefillsLast FilledStart DateEnd [...] from lung to other site, right01/15/2023lood pressure klpxfkcsjel66/06/2023VD (peripheral vascular disease)12/21/2022ifficult zungmjdalo16/02/2023History of carotid luozldjwjrzzkj14/02/6588Yagjts67/02/2023therosclerosis of [place] coronary artery of [place] heart without angina hqzwdzec54/02/2023OSA (obstructive sleep apnea)12/21/20226084Cgkpwmtfuvrm27/02/2023Opioid use12/21/2022Obesity (BMI 30.0-34.9)12/21/20223635BKUSNFA91/22/2010 Overview (09/13/2009): 58 y/o female s/p L [...] require SNP today then d/c central line. Iyvyqy2809/11/2009 Overview (09/11/2009): 09/11/09 - III unit PRBC possible GI source. TIA (transient ischemic attack)09/08/20097180Gtlqn68/25/2002Anxiety and depression Overview (09/13/2009): Not on SSRI [...] Immunizations ImmunizationAdministration DatesNext Duediphtheria tetanus (DT) vaccine, rybfxqlag84/01/1996hepatitis B (HepB) vaccine, 3-dose series, age 20+ [...] drink = 0.6 oz pure alcohol)rarePHQ-2AnswerDate RecordedPHQ-2 oqbmc6393Area Deprivation IndexAnswerDate RecordedNational Score (1-100), lower number is lower risk78 12/13/2022State Score (1-10), lower number is lower kcym7143Data from: https://www.neighborhoodatlas.medicine.[facility].edu/. Last address used for [address] [address]/13/2022CommentsNoSex and Gender InformationValueDate RecordedSex Assigned at BirthNot on fileLegal SexFemale 06/22/2012 9:20 AM ESTGender IdentityNot on fileSexual OrientationNot on file OccupationIndustryJob Start DateJob End DateNURSENot on fileNot on fileNot on file Last Filed Vital Signs Vital SignReadingTime TakenCommentsBlood Xbbsgylc876/8010 12:59 PM EDT manual gwqklYitgc7415/15/2024 12:50 PM PZKOrbkpnvryqk05.2 ??C (97.2 ??F) 05/05/2024 12:50 PM EDTRespiratory Sgjl9414 12:50 PM EDTOxygen Nnnzgumslv96%05/05/2024 12:50 PM EDT3 liters of U3Epnkasq Oxygen Concentration-- Fthnjh48 kg (167 lb 8.8 oz)05/05/2024 12:50 PM DWYJcdrlu029.8 cm (5' 2.52 ) 05/05/2024 12:50 PM EDTBody Mass Index30.141 12:50 PM EDT Plan of Treatment Health MaintenanceDue DateLast DoneCommentsAnnual PCP Team Chronic Disease Visit 1970Pneumococcal Vaccine: 50+ (1 of 2 - PCV)11/06/1971CT Colonography 11/05/19977389Mzytkaqxdnv13/17/1998Fecal Occult Blood1997Sigmoidoscopy 1997Shingrix Vaccine (1 of 2)2002Bone Density Cftgfbcqe15/17/2018 Mammogram Gzfjljiqa36, 03/17/2019, 03/17/2019Cologuard (FIT-DNA)Colorectal Cancer Zcfuacspc55/10/2022TaP,Tdap,Td Vaccine (3 - Td or Tdap)/04/2013, 07/22/1995LDL Cholesterol /01/2023, 01/25/2023dvance Directive Efjpuczwhn55/01/2025Medicare Advantage Annual Wellness Visit07/22/2024ovid-19 Vaccine ( season) /, 04/18/2021, 10/11/2020, Additional history existsInfluenza Vaccine (#1)03/22/2025Diabetes Pumvwgokq34, 04/14/2024, 03/24/2024, Additional history existsRSV Vaccine (1 - 1-dose 75+ series) 11/06/2027Lipid Xfwtabotn02, 01/25/2023Hepatitis C Screening Zobgyeinb85/10/2001 Medical Devices ImplantedTypeAreaManufacturerDevice IdentifierShelf Expiration DateModel / Serial / LotPort-07/25/2023 Implanted:07/25/2023 (Quantity not on file)Chest Wall Procedures Procedure NamePriorityDate/TimeAssociated DiagnosisCommentsCOMPREHENSIVE METABOLIC XUBXLXmobpmm08/15/2024 12:39 PM EDT 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, right (HCC) HEP REMOTE PANEL BL03/31/2001 3:23 PM EDT from Last 3 Months or Most Recently Relevant to Health Maintenance Results * (ABNORMAL) COMPREHENSIVE METABOLIC PANEL (05/05/2024 12:39 PM EDT)Component ValueRef RangeTest MethodAnalysis TimePerformed AtPathologist Signature Protein, Total6.0(L)6.3 - 8.0 g/dL05/05/2024 1:16 PM EDTNORTHCO[facility] LABAlbumin3.8(L)3.9 - 4.9 g/dL05/05/2024 1:16 PM EDTNORTHCOAST [facility] LABCalcium, Total8.78.5 - 10.2 mg/dL05/05/2024 1:16 PM EDTNORTHCST BEAUMONT [facility] LABBilirubin, Total0.50.2 - 1.3 mg/dL 05/05/2024 1:16 PM EDTNORTHCOAST BEA[facility]ONT [facility] LABAlkaline Ytvhmmaprxs6867 - 123 U/L1 1:16 PM EDTNORTHCST BEAUMONT [facility] GRCZTK8321 - 35 U/L1 1:16 PM EDTNORTHCST [facility] ECQVMA572 - 38 U/L1 1:16 PM EDTNORTHARB[facility] BJEOsynlqg8877 - 99 mg/dL05/05/2024 1:16 PM [facility] LABComment: The [place] Diabetes Association (ADA) provides guidance for cutoff [...] Standards of Medical Care in Diabetes 2016, [place] Diabetes Association. Diabetes Care. 2016.39(Suppl 1). BUN44(H)7 - 21 mg/dL05/05/2024 1:16 PM [facility] Creatinine1.50(H)0.58 - 0.96 mg/dL05/05/2024 1:16 PM [facility] RBDIsaetv902384 - 144 mmol/L1 1:16 PM [facility] LABPotassium4.03.7 - 5.1 mmol/L1 1:16 PM T [facility] VRGUnmavbxd31576 - 107 mmol/L1 1:16 PM [facility] EHYDU737(H)22 - 30 mmol/L1 1:16 PM [facility] LABAnion Gap88 - 15 mmol/L1 1:16 PM [facility] LABEstimated Glomerular Filtration Rate37(L)>=60 mL/min/1.73m 05/05/2024 1:16 PM [facility] LABComment:Estimated Glomerular Filtration Rate (eGFR) is calculated [...] / UnknownPort - Continuous Access Dev. / Owoovce7305/05/2024 12:39 PM EDT 05/05/2024 12:52 PM EDT Narrative Authorizing ProviderResult TypeResult StatusMehnaz ATKINS-CLABORATORYFinal ResultPerforming OrganizationAddressCity/State/ZIP CodePhone Number [facility] [address] [place] [address] * (ABNORMAL) HEP REMOTE PANEL BL (03/31/2001 3:23 PM EDT)ComponentValueRef Range Test MethodAnalysis TimePerformed AtPathologist SignatureHep B Core Ab, Total NegativeNEGWICHITA CLINIC LABHep C Antibody IANegativeNEGFORT [facility] LABHBsAgNegativeNEGFORT [facility] LABHep B Surface Ab, QualPositive(A)NEG [facility] LABComment: A positive Hepatitis B Surface Antibody or a result of > or = 10 mIU/mL implies immunity to HBV. For additional information and guidelines see MMWR 1990,39(RR-2) 1-23, August 30, 1989. Interpretation (Hep Remote Pnl)These results are consistent with previous exposure and immunity to theFORT [facility] LABComment:hepatitis B virus antigen, as seen for example secondary to vaccination.Specimen (Source) Anatomical Location / LateralityCollection Method / VolumeCollection Time Received Time03/31/2001 3:23 PM EDT Narrative Authorizing ProviderResult TypeResult StatusMartinez Hayes Jr., MDLABORATORY Final ResultPerforming OrganizationAddressCity/State/ZIP CodePhone Number [facility] [address] [place] [address] from Last 3 Months or Most Recently Relevant to Health Maintenance Insurance [address] [place] [address] [address] [place] [address] Care Teams Team MemberRelationshipSpecialtyStart DateEnd Date Jayy Guzman MD [address] [place] [address] PCP - General09/01/09 Jie Johnson APRN.NETWORK OPERATIONS TECHNICIAN [address] [place] [address] Nurse PractitionerHematology/Oncology01/16/23 Roxana Wagner, LIU [address] [place] [address] Specialty Care CoordinatorHematology/Oncology01/16/23
--- OUTSIDE RECORDS SUMMARY | 2025-07-12 10:35 | XMS_ITS | Clinical Summary ---
Author Organization [facility] Address [address] [place] [address] Care Team Providers Care Driver Salesman Name Role Phone Zo Tavarez MERCHANDISING CONSULTANT Unavailable Marcellus Valenzuela DO Primary Care Provider [phone] Marcellus Valenzuela DO Unavailable Allergies Active AllergyReactionsCriticalityNoted IvlzHorfuhobEmphhxbzsfump03/15/2024 Other Reaction(s): Hypertension Zmemesymuh15/12/2025 Other Reaction(s): foot drop slurring words, dry mouth LatexItching,WeivHvm7308/13/2023 Other Reaction(s): Rash CqedtckqRixqpruUflp93/18/2010 Other Reaction(s): Hallucinating Iifqrn2605/05/2024 Other Reaction(s): Rash Wesvpk7505/05/2024 Other Reaction(s): Hypertension Sulfa AntibioticsUnknown,WcfwdukebjvUzlm82/17/2001 Medications MedicationSigDispense QuantityRefillsLast FilledStart DateEnd DateStatus amiodarone [...] mouth Daily as needed for high blood zwucftxt09/14/2025Active lisinopril 5 MG tablet Take 5 mg by mouth Daily as ckeqxo705Active ferric gluconate (Ferrlecit) 12.5 MG/ML injection Q7D5Active ondansetron ODT (Zofran-ODT) 4 MG disintegrating tablet Take 4 mg by mouth every 6 (six) hours if rrkgtg8002/12/2025tive senna-docusate (Mora-Colace) 8.6-50 MG tablet Take 1 tablet by mouth Daily5Active apixaban (Eliquis) 5 MG tablet Take 5 mg by mouth in the morning and 5 mg before bedtime.5Active rosuvastatin (Crestor) 5 MG tablet Indications:Cerebrovascular accident (CVA), unspecified mechanism (HCC)Take 1 tablet (5 mg) by mouth Daily for 10 days, THEN 2 tablets (10 mg) Daily for 20 days. 50 tablet 5Active metoprolol succinate XL (Toprol-XL) 50 MG 24 hr tablet Indications:Atrial fibrillation, unspecified type (HCC)Take 1 tablet (50 mg) by mouth in the morning and 1 tablet (50 mg) before bedtime.5Active carvedilol (Coreg) 6.25 MG tablet Take 6.25 mg by mouth in the morning and 6.25 mg in the evening. Take with meals.5Active loperamide (Imodium A-D) 2 MG tablet Indications:Diarrhea, unspecified typeTake 1-2 tablets (2-4 mg) by mouth 4 (four) times a day as needed for diarrhea for up to 10 days Max of 4 tablets in 24 hours 30 tablet Expired Active Problems ProblemNoted DateDiagnosed DateEnd-stage renal disease on pbjghnpozqlw04/07/2025 Atrial iqtttkaynoxg53/07/2025bdominal pain02/16/2025ounseling regarding advance care planning and goals of care02/16/2025Ectatic abdominal aorta 02/16/2025End stage renal failure on /29/2025HOCM (hypertrophic obstructive cardiomyopathy)02/16/2025Iron deficiency coyake9402/16/2025Left /29/2025Left leg xtmqqwow54/29/2025Mild cognitive impairment 02/16/2025Stroke-like mktijowq77/29/4565Lcuybvog42/29/2025Acute right arterial ischemic stroke, anterior cerebral artery [...] Daily for 20 days. Arteriosclerosis of coronary pkwvdr5102/16/2025History of heart bypass surgery 02/16/2025 Overview (02/16/2025): cabg x3 Abnormal positron emission tomography of right lung05/25/2024enal failure 05/25/2024cute respiratory failure with jcmcnpbut64/04/2024denocarcinoma of lung05/25/2024ltered mental npvzex0105/25/20240667Aigjudq61/04/2024laudication of both lower itjymbhgafl41/04/2024ritical illness ylacymax17/04/2024isorder 05/25/2024Elevated pyoznuhu51/04/2024Hematoma of neck05/25/2024Multiple lung nodules on CT05/25/2024leural uvsxchuo51/04/2024olymyalgia rheumatica ([facility])05/25/2024ulmonary prfxycljydel07/04/2024enal artery stenosis, [place], vopustxbx95/04/2024heumatoid zxrqzxabo79/04/2024S/P CABG x Qenmzjv70/04/2024Shortness of qkabqc3505/25/2024Smoking fombctm1005/25/2024 Hypertensive vacrkqevp23/04/2024Hypertensive urgency, lekeyoown01/04/2024ight- sided extracranial carotid artery fmnandle44/04/2024Hypertensive crisis 05/25/2024Transient atrial xkpqutjmchde23/04/2024Goals of care, counseling/sdfogusfkq69/04/2024efusal of statin medication by uofgpum2011/29/2023 Asymptomatic hypertensive xciwczd9701/28/2023trophy of kidney (terminal) 01/28/2023hronic obstructive pulmonary disease, kgyykdcahrb47/10/2023ecreased hearing of both ears01/28/2023nxiety and rywrttrozd73/10/2023 Overview (01/28/2023): Not on SSRI at home. [...] follow at subsequent visits History of lung ywrztz3301/28/2023Lumbago of lumbar region with tjpvbizp86/04/2023 Occlusion and stenosis of unspecified carotid xycpcc0201/28/2023Other forms of angina ldokpacy68/10/2023rimary lung cancer with metastasis from lung to other site, right01/15/2023 Assessment & Plan (12/24/2024 10:00 PM EDT): Blood pressure atpprqonnju26/06/2023Opioid use12/21/2022OSA (obstructive sleep apnea)12/21/20222097Euveajalzqgw52/02/2023eripheral vascular yciczny6112/21/2022 Tjjbkf2612/21/20226094Uvtyfowqdsqfqst80/13/2021econdary mbmaadqpjvqwejgjipi87/13/2021 Excessive daytime nixzyqeeko74/12/2021nemia of chronic renal exgkkvz5312/03/2018 Chronic qytgvdfiszcmtnc70/15/2019Atherosclerosis of coronary artery without angina frfoqhtu51/15/2019Chronic kidney disease due to qiuecvbtdiji74/15/2019 Diastolic hbtjnljwakt57/28/2018Essential avajmktldbir18/21/2018 Overview (01/28/2023): 09/11/09 - readmitted after CEA [...] and 0.5 tablets (37.5 mg) before bedtime. Cihmliqjlfgk01/06/2017Hypertensive heart bfknfzk9902/01/2017Major depression, single ckdjglk4702/01/2017Vitamin D ilhzznuikc55/02/2017Chronic mastoiditis of left side07/09/2016Hearing loss05/29/2016Lung lxkrjc6207/05/2015Chronic fatigue 05/18/2015Chronic pain ufvruxys69/28/2015 Assessment & Plan (12/24/2024 10:00 PM EDT): Pt requested refill on norco for chronic pain, pdmp checked and no red flags, refills sent Orders: HYDROcodone-acetaminophen (Arbon) 5-325 MG tablet; Take 1 tablet by mouth every 6 (six) hours if needed for severe pain Anemia of renal sqjzuxs9709/11/2009 Overview (01/28/2023): 09/11/09 - III unit PRBC possible GI source. TIA (transient ischemic attack)09/08/2009 Resolved Problems ProblemNoted DateDiagnosed DateResolved DateHypertensive datbsoa3702/16/2025 02/16/2025Pseudomonas aeruginosa jutcyywai39/10/2023Slurred speech /MI 30.0-30.9,adult/04/2023IBS (irritable bowel syndrome)/therosclerosis of [place] coronary artery of [place] heart without angina dnqztwai23Obesity (BMI 30.0-34.9) ifficult lsxwqlclxd21History of carotid epmmfrkuhmloka40rteriosclerosis of hitdtp01 Paroxysmal atrial evknpzserflj46lass 1 eongzxo8108/10/2018 01/28/2023Overweight with body mass index (BMI) 25.0-29.90 Obesity with body mass index 30 or zarkftq28Mixed kmvuakznxfminc58History of primary malignant neoplasm of lung 12/12/Mixed hearing loss, vuuigfuav60eneralized anxiety swbtlthu53Referral of mqycnmb19ough Encounters DateTypeDepartmentCare DvzbOwmxrvdshkf15/17/2025Patient Outreach [facility] [address] [place] [id number] Zo Tavarez LSW 07/02/2025linisync Result Encounter [facility] External Department Unsolicited Provider, Generic External Data 06/30/2025Results Follow-Up [facility] [address], [address] [place] [address] Marcellus Valenzuela DO GASTROINTESTINAL PLUS PARASITES (HTRX)06/29/2025 1:00 PM ESTOffice Visit [facility] [address], [address] [place] [address] Marcellus Valenzuela DO Acute gastroenteritis (Primary Dx); Diarrhea, unspecified type; Nausea and vomiting, unspecified vomiting type; Essential locwpziyjrhw46/09/2025Bamboo flowsheet [facility] [address], [address] [place] [address] Marcellus Valenzuela DO 5Clinisync Result Encounter [facility] External Department Unsolicited Provider, Generic External Data 06/07/2025Patient Outreach [facility] [address] [place] [address] Zo Tavarez LSW 05/06/2025Patient Outreach [place] [place] [address] Zo Tavarez LSW 04/27/2025 1:20 PM EDTOffice Visit [facility] [address], [address] [place] [address] Marcellus Valenzuela DO End-stage renal disease on hemodialysis (HCC) (Primary Dx); Hypotension, unspecified hypotension type; Other fatigue; Essential hypertension; Atrial fibrillation, unspecified type (HCC); Hemiplegia, unspecified affecting left nondominant side (HCC); Chronic obstructive pulmonary disease, unspecified (HCC); Lumbar pain04/27/2025amb flowsheet [facility] [address], [facility] [address] [place] [address] Marcellus Valenzuela DO from Last 3 Months Immunizations ImmunizationAdministration DatesNext DueDT (pediatric)07/22/1995Hep B, adult 12/21/1995,08/22/1995,07/22/1995PPD Test06/01/2024,05/22/20248599DAGM-VIF-4 (COVID- 19) vaccine, mRNA, spike protein, LNP, bivalent, preservative free, 30 mcg/0.3 mLdose, tosin-sucrose yesucboqxek06/29/8404Lbeu76/10/2013 Family History Medical HistoryRelationNameCommentsNo Known ProblemsBrotherrobertdob 1950No [...] get together with friends or relatives? Patient wbrxoyoa33/25/2023How often do you attend gnosticism or scientology services? Patient /25/2023o you belong to any clubs or organizations such as gnosticism groups, unions, fraternal or athletic groups, or school groups?Patient wzrjqqte95/25/2023How often do you attend meetings of the clubs or organizations you belong to?Patient sfcmvowx62/25/2023re you , , , , never , or living with a partner?Qaxpqez5004/15/2023UDIT-C AnswerDate RecordedQ1: How often do you have [...] hard at all04/15/2023 PHQ-2AnswerDate RecordedPatient Health Questionnaire-2 Jwoha96908/30/2024Finmount[facility] Kimberly of Occupational Health - Occupational Stress QuestionnaireAnswerDate [...] to sleep or slept in ashelter (including now)?No3CommentsNoSex and Gender InformationValueDate RecordedSex Assigned at BirthNot on fileLegal SexFemale 10/03/2022 6:53 PM EDTGender IdentityNot on fileSexual OrientationNot on file Last Filed Vital Signs Vital SignReadingTime TakenCommentsBlood Rbuvcstj617/9206/29/2025 1:18 PM EST Dinzl790306/29/2025 1:18 PM IYNEnasarszsdq10.1 ??C (97 ??F)06/29/2025 1:18 PM EST Respiratory Ufen6948 1:18 PM ESTOxygen Mtupsaysqe04%06/29/2025 1:18 PM ESTInhaled Oxygen Concentration--Wkohzm17.1 kg (128 lb)06/29/2025 1:18 PM EST Kfzxlg093 cm (5' 3 )06/29/2025 1:18 PM ESTBody Mass Index22.6706/29/2025 1:18 PM EST Plan of Treatment DateTypeDepartmentCare Team (Latest Contact Info)Lydqdewtuhh31/07/2026 11:20 AM ESTOffice Visit [facility] [address], [facility] [address] [place] [address] Marcellus Valenzuela, DO [address] [facility] [address] [place] [address] Health MaintenanceDue DateLast DoneCommentsCT Liiymxguaqqd31/17/1951Colonoscopy 1950FIT1950FOBT1950 8244Zgptdeamjaqhf27/17/1953neumococcal Vaccine: 65+ Years (1 of 2 - PCV)11/06/19711898Wgsbmdamg12, 03/17/2019Colorectal Cancer Epwdxvbhs56/10/2022FIT-DNA, 12/29/2018COVID-19 Vaccine ( season)509/, 04/18/2021, 10/11/2020, Additional history existsInfluenza Vaccine (#1)03/22/2025 Procedures Procedure NamePriorityDate/TimeAssociated DiagnosisCommentsALL POTASSIUMRoutine 07/02/2025 7:25 AM EST GASTROINTESTINAL PLUS PARASITES (HTRX)Hrbzpqa2506/29/2025 1:49 PM EST Diarrhea, unspecified type Nausea and vomiting, unspecified vomiting type ALL NEWSPUYQSIwrsfut37/26/2025 7:19 AM EST BI MAMMOGRAM SCREENING XCZBMILPJSfszqxt61/27/2019 Generalized anxiety disorder Body mass index (BMI) 30.0-30.9, adult Encounter for screening mammogram for malignant neoplasm of breast Lumbago with sciatica, unspecified side LAB COLOGUARD?? COLON CANCER HRWRQFLuyjtjk83/10/2019 from Last 3 Months or Most Recently Relevant to Health Maintenance Results * (ABNORMAL) ALL POTASSIUM (07/02/2025 7:25 AM EST) Only the most recent of2 resultswithin the time period is included. ComponentValueRef RangeTest MethodAnalysis TimePerformed AtPathologist Signature POTASSIUM5.8(H)3.5 - 5.1 mmol/LTBHSpecimen (Source)Anatomical Location / LateralityCollection Method / VolumeCollection TimeReceived Time07/02/2025 7:25 AM EST07/02/2025 9:23 AM EST Narrative CLINISYNC - 07/02/2025 9:45 AM EST [facility] Authorizing ProviderResult TypeResult StatusGeneric External Data Provider CLINISYNCFinal ResultPerforming OrganizationAddressCity/State/ZIP CodePhone Number CLINISYNC [facility] * GASTROINTESTINAL PLUS PARASITES (HTRX) (06/29/2025 1:49 PM EST)ComponentValue Ref RangeTest MethodAnalysis TimePerformed AtPathologist SignatureADENOVIRUS L88-50174.000 - 31.004 ppm12/04/2025 8:20 AM ESTHealthTrackRx at LabPort ADENOVIRUS I71-26Jyv Tipeyjki29.000 - 31.004 ppm06/30/2025 8:20 AM EST [facility] at LabPortCAMPYLOBACTER SPP (COLI, JEJUNI, UPSALIENSIS)023.000 - 31.263 ppm06/30/2025 8:20 AM ESTHealthTrackRx at LabPortCAMPYLOBACTER SPP (COLI, JEJUNI, UPSALIENSIS)Not Fznhjizd11.000 - 31.263 ppm06/30/2025 8:20 AM ESTHealthTrackRx at LabPortENTEROAGGREGATIVE E. COLI (EAEC)019.691 - 24.689 ppm06/30/2025 8:20 AM ESTHealthTrackRx at LabPortENTEROAGGREGATIVE E. COLI (EAEC)Not Gfntbiwm98.691 - 24.689 ppm06/30/2025 8:20 AM ESTHealthTrackRx at LabPortENTEROINVASIVE E. COLI (EIEC)-SHIGELLA JVY974.691 - 24.689 ppm 06/30/2025 8:20 AM ESTHealthTrackRx at LabPortENTEROINVASIVE E. COLI (EIEC)- SHIGELLA SPPNot Cpnwfkoo87.691 - 24.689 ppm06/30/2025 8:20 AM ESTHealthTrackRx at LabPortENTEROPATHOGENIC E. COLI (EPEC)019.691 - 24.689 ppm06/30/2025 8:20 AM ESTHealthTrackRx at LabPortENTEROPATHOGENIC E. COLI (EPEC)Not Detected 19.691 - 24.689 ppm06/30/2025 8:20 AM ESTHealthTrackRx at [facility] ENTEROTOXIGENIC E. COLI (ETEC)019.691 - 24.689 ppm06/30/2025 8:20 AM EST [facility] at LabPortENTEROTOXIGENIC E. COLI (ETEC)Not Ccczvtdw41.691 - 24.689 ppm06/30/2025 8:20 AM ESTHealthTrackRx at LabPortNOROVIRUS (GENOGROUP 1, 2)023.000 - 30.251 ppm06/30/2025 8:20 AM ESTHealthTrackRx at [facility] NOROVIRUS (GENOGROUP 1, 2)Not Qcctrupw50.000 - 30.251 ppm06/30/2025 8:20 AM ESTHealthTrackRx at LabPortROTAVIRUS A, B, C023.000 - 31.736 ppm06/30/2025 8:20 AM ESTHealthTrackRx at LabPortROTAVIRUS A, B, CNot Vxxlnmtr92.000 - 31.736 ppm06/30/2025 8:20 AM ESTHealthTrackRx at PirFfnmNFHSGETDCY808.000 - 30.960 ppm06/30/2025 8:20 AM ESTHealthTrackRx at [facility] HealthSALMONELLANot Detected 23.000 - 30.960 ppm06/30/2025 8:20 AM ESTHealthTrackRx at [facility] TOXIN- PRODUCING E. COLI (STEC)019.691 - 24.689 ppm06/30/2025 8:20 AM EST [facility] TOXIN- PRODUCING E. COLI (STEC)Not Detected 19.691 - 24.689 ppm06/30/2025 8:20 AM ESTHealthTrackRx at [facility] TOXIN- PRODUCING E. COLI O157 (STEC O157)019.691 - 24.689 ppm06/30/2025 8:20 AM EST [facility] TOXIN- PRODUCING E. COLI O157 (STEC O157)Not Llkaevzr86.691 - 24.689 ppm06/30/2025 8:20 AM ESTHealthTrackRx at [facility] Specimen (Source)Anatomical Location / LateralityCollection Method / Volume Collection TimeReceived ZublBsjyhpb91/09/2025 1:49 PM EST06/30/2025 2:46 AM EST Narrative Authorizing ProviderResult TypeResult StatusDaniraheem JASON BLOOD ORDERABLES Edited Result - FinalPerforming OrganizationAddressCity/State/ZIP CodePhone Number [facility] [address] [address] * Bilateral screening mammogram (03/17/2019)Anatomical RegionLateralityModality BreastBilateralMammographySpecimen [...] Kameron Olivera M.D.03/17/2019 5:37 PM Dictation Location: [facility] Transcribed By: ? PWS ?03/17/19 1737 Dictated By: ?Kameron Olivera MD ?03/17/19 1727 Signed By: <Electronically signed by MD Kameron Olivera in OV> ?03/17/19 1737 Narrative 03/17/2019 12:00 AM EDT PERFORMED AT [facility] LOCATION:[place] [address] ?[facility] ?[facility] [address] [place] ?[address] ? [place] [address] ? Mammography Report ? Signed Patient: Lupe Butler ?MR#: [id number] 1 : 1950 ?Acct:[id number] Age/Sex: 68 / F ?ADM Date: 03/17/19 Loc: [place] ?Room: ?Type: REG CLI Attending Dr: TAZ Glasgow APRN [...] Note CONVERSION, GENERIC - 01/25/2023 PERFORMED AT [facility] LOCATION:[address] [place] [address] [place] [address] Mammography Report Signed Patient: Lupe ButlerMR#: [id number] 1 : 3Acct:[id number] Age/Sex: 68 / FADM Date: 03/17/19 Loc: [place] Room:Type: [facility] Attending Dr: TAZ Glasgow APRN Ordering Provider: [...] Kameron Olivera M.D.03/17/2019 5:37 PM Dictation Location: [facility] Transcribed By: [facility] 03/17/191736 Dictated By: Kameron Olivera MD 03/17/191726 Signed By: <Electronically signed by MD Kameron Olivera in OV> 03/17/19 173 Authorizing ProviderResult TypeResult StatusCarrie A Kiepert NPIMG [...] (Shawna Tavera al, N Engl J Med 2014;370(14):0509-4712) ?? COLOGUARD RE-SCREENING RECOMMENDATION: Periodic routine colorectal cancer screening is an important part of preventive healthcare for asymptomatic persons at average risk for colorectal cancer. ??Following a negative Cologuard result, the [place] [employer] and U.S. Multi-Society Task Force screening guidelines recommend a Cologuard re-screening interval of 3 years. ??References: [place] [employer] (ACS). Colorectal cancer prevention and early detection. [place], [place]: [place] [employer]; [updated 2015Nov 12]. https://www.cancer.org/cancer/co ypk-mpubku-qivjus/xwrfqfogu-jrdfxxemx-rlmqneb/acs-recommendations.html. Accessed March 21, 2018; Cl DK, Kirstin CR, Abdoul SamuelK, Colorectal Cancer Screening: Recommendations for Physicians and Patients from the U.S. Multi-Society Task Force on Colorectal Cancer Screening, Am J Gastroenterology 2017; 112:3422-7432. Test Type: Composite algorithmic analysis of stool [...] can be accessed at the following location: www.[employer].[facility]/results. ??Additional description of the Cologuard test process, warnings and precautions can be found at www.cologuardtest.com. Rx Only. Specimen (Source)Anatomical Location / LateralityCollection Method / Volume Collection TimeReceived Time12/29/2018 Narrative Authorizing ProviderResult TypeResult StatusCarrie Zeinab Sánchez NPLAB MOLECULAR DIAGNOSTICS ORDERABLESFinal ResultPerforming OrganizationAddressCity/State/ZIP CodePhone Number [facility] from Last 3 Months or Most Recently Relevant to Health Maintenance Insurance * Guarantor: Pebbles Butler TypeRelation to PatientDate of BirthPhone Billing AddressPersonal/RclaqcMohh97/17/1951 [address] [address] Care Teams Team MemberRelationshipSpecialtyStart DateEnd Date Marcellus Valenzuela DO [address] [place] [address] PCP - GeneralFamily Medicine02/17/25 Marcellus Valenzuela DO [address] [place] [address] PCP - Carolynn KEN04/21/25 Zo Tavarez LSW [address] [place] [address] Social WorkerFamily Medicine02/22/23
[2025-07-12 10:56] LABS: Potassium 6.7 mmol/L (3.5-5.1)
== END 2025-07-12 10:31 | disposition home or self-care (01) ==
LOC: LAB 10:30
PROVIDERS: PCP Family Medicine; Visit Provider Internal Medicine Nephrology
DX: E87.5 Hyperkalemia (principal)
CPT/HCPCS: 36415; 84132

== ENCOUNTER 2025-07-19 08:12 | Outpatient (REF) | payer MEDICARE, SELFPAY ==
--- OUTSIDE RECORDS SUMMARY | 2025-07-19 08:17 | XMS_ITS ---
Author Organization [facility] Address [address] [place], [place] [address] Care Team Providers Care Digital Business Analyst Name Role Phone Jayy Guzman MD Primary Care Provider [phone] Jie Johnson APRN.PATIENT SERVICE REPRESENTATIVE Unavailable [phone] Roxana Wagner RN Unavailable [phone] Active Problems ProblemNoted DateDiagnosed Date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, right01/15/2023lood pressure wetginlkcqh41/06/2023VD (peripheral vascular disease)3Difficult jzivxrgelp42/02/2023History of carotid ewrmrgmpfkmqfh69/02/6317Iikluw22/02/2023therosclerosis of [place] coronary artery of [place] heart without angina xlkopgyz79/02/2023OSA (obstructive sleep apnea)12/21/20223704Hjsvbyczsixn11/02/2023Opioid use12/21/2022Obesity (BMI 30.0-34.9)12/21/20224783FWFOPBN49/22/2010 Overview (09/13/2009): 58 y/o female s/p L [...] require SNP today then d/c central line. Biroah8909/11/2009 Overview (09/11/2009): 09/11/09 - III unit PRBC possible GI source. TIA (transient ischemic attack)09/08/20098163Kzamw48/25/2002Anxiety and depression Overview (09/13/2009): Not on SSRI [...]
--- OUTSIDE RECORDS SUMMARY | 2025-07-19 08:17 | XMS_ITS | Clinical Summary ---
Author Organization [facility] Healthcare Address [address] [place] [address] Care Team Providers Care Scale Adjuster Name Role Phone Zo Tavarez CHIROPRACTIC PHYSICIAN Unavailable Marcellus Valenzuela DO Primary Care Provider [phone] Marcellus Valenzuela DO Unavailable [phone] Allergies Active AllergyReactionsCriticalityNoted HogbWkrtbvhhNcnhdyakfmzxb98/15/2024 Other Reaction(s): Hypertension Tmlbogdrzm43/12/2025 Other Reaction(s): foot drop slurring words, dry mouth LatexItching,AnawEwn2108/13/2023 Other Reaction(s): Rash DuxqkgxgDhymgizZypg96/18/2010 Other Reaction(s): Hallucinating Tuaaln4805/05/2024 Other Reaction(s): Rash Avlgtp3905/05/2024 Other Reaction(s): Hypertension Sulfa AntibioticsUnknown,TeiptjkqfkpDrkn53/17/2001 Medications MedicationSigDispense QuantityRefillsLast FilledStart DateEnd DateStatus amiodarone [...] mouth Daily as needed for high blood xrlcdetz24/14/2025Active lisinopril 5 MG tablet Take 5 mg by mouth Daily as cjydoh525Active ferric gluconate (Ferrlecit) 12.5 MG/ML injection Q7D5Active ondansetron ODT (Zofran-ODT) 4 MG disintegrating tablet Take 4 mg by mouth every 6 (six) hours if nihigg5602/12/2025tive senna-docusate (Mora-Colace) 8.6-50 MG tablet Take 1 [...] Problems ProblemNoted DateDiagnosed DateEnd-stage renal disease on /07/2025 Atrial oesfknavrody06/07/2025bdominal pain02/16/2025ounseling regarding advance care planning and goals of care02/16/2025Ectatic abdominal aorta 02/16/2025End stage renal failure on unrdflqa44/29/2025HOCM (hypertrophic obstructive cardiomyopathy)02/16/2025Iron deficiency mwndaq1002/16/2025Left wlpfeuewxv05/29/2025Left leg dxqbspae39/29/2025Mild cognitive impairment 02/16/2025Stroke-like wtiyuqfu45/29/0274Axdvrjig04/29/2025Acute right arterial ischemic stroke, anterior cerebral artery [...] Daily for 20 days. Arteriosclerosis of coronary jbxlvx1802/16/2025History of heart bypass surgery 02/16/2025 Overview (02/16/2025): cabg x3 Abnormal positron emission tomography of right lung05/25/2024enal failure 05/25/2024cute respiratory failure with /04/2024denocarcinoma of lung05/25/2024ltered mental pascto8505/25/20247887Oeqzgyh69/04/2024laudication of both lower gncfyyenaoy97/04/2024ritical illness tsztvyef75/04/2024isorder 05/25/2024Elevated /04/2024Hematoma of neck05/25/2024Multiple lung nodules on CT05/25/2024leural vjhoabaz95/04/2024olymyalgia rheumatica ([facility])05/25/2024ulmonary llvyvgobjlda01/04/2024enal artery stenosis, [place], rqadsflza14/04/2024heumatoid fkawmllhr30/04/2024S/P CABG x Isweshf09/04/2024Shortness of emprrm6005/25/2024Smoking bjzvzge8805/25/2024 Hypertensive oyymyofor02/04/2024Hypertensive urgency, tddvovbsk72/04/2024ight- sided extracranial carotid artery dyfkoylt23/04/2024Hypertensive crisis 05/25/2024Transient atrial yxresgxozyyn89/04/2024Goals of care, counseling/mdcvvqxilr94/04/2024efusal of statin medication by ccljcgq1111/29/2023 Asymptomatic hypertensive arstfcl4801/28/2023trophy of kidney (terminal) 01/28/2023hronic obstructive pulmonary disease, cekiccdyurc49/10/2023ecreased hearing of both ears01/28/2023nxiety and jgwfaeiwwv44/10/2023 Overview (01/28/2023): Not on SSRI at home. [...] follow at subsequent visits History of lung lajiuj9501/28/2023Lumbago of lumbar region with qtrthgir54/04/2023 Occlusion and stenosis of unspecified carotid qjwcfm5901/28/2023Other forms of angina wuwjhgve12/10/2023rimary lung cancer with metastasis from lung to other site, right01/15/2023 Assessment & Plan (12/24/2024 10:00 PM EDT): Blood pressure qkilvhjhxku85/06/2023Opioid use12/21/2022OSA (obstructive sleep apnea)12/21/20221224Xfdtpcluoatq79/02/2023eripheral vascular gctquts9612/21/2022 Iwgtla7912/21/20222483Rsmdlcyviofpiub99/13/2021econdary muyloahsccrhjllbgks28/13/2021 Excessive daytime uolmkctkqm31/12/2021nemia of chronic renal yykljwz1912/03/2018 Chronic ujkqjitpufpffqf28/15/2019Atherosclerosis of coronary artery without angina sxqpofta19/15/2019Chronic kidney disease due to hsripofhxiyy97/15/2019 Diastolic zknkdqwgodi10/28/2018Essential fttehcvxfruj18/21/2018 Overview (01/28/2023): 09/11/09 - readmitted after CEA [...] and 0.5 tablets (37.5 mg) before bedtime. Naspndrwtzlp68/06/2017Hypertensive heart ewhibgu5102/01/2017Major depression, single jxnturf2602/01/2017Vitamin D asnvzvhwdm32/02/2017Chronic mastoiditis of left side07/09/2016Hearing loss05/29/2016Lung bavnfs0407/05/2015Chronic fatigue 05/18/2015Chronic pain ystoomic97/28/2015 Assessment & Plan (12/24/2024 10:00 PM EDT): Pt requested refill on norco for chronic pain, pdmp checked and no red flags, refills sent Orders: HYDROcodone-acetaminophen ([place]) 5-325 MG tablet; Take 1 tablet by mouth every 6 (six) hours if needed for severe pain Anemia of renal swvuyrj4809/11/2009 Overview (01/28/2023): 09/11/09 - III unit PRBC possible GI source. TIA (transient ischemic attack)09/08/2009 Resolved Problems ProblemNoted DateDiagnosed DateResolved DateHypertensive gamrsau0202/16/2025 02/16/2025Pseudomonas aeruginosa inogjmewq48/10/2023Slurred speech /MI 30.0-30.9,adult/04/2023IBS (irritable bowel syndrome)/therosclerosis of [place] coronary artery of [place] heart without angina ewnetdcf61Obesity (BMI 30.0-34.9) ifficult iljupzyfmv71History of carotid jdpsvdclefuxtb48rteriosclerosis of idkndc33 Paroxysmal atrial ortqanwntmud37lass 1 bxdljbi1608/10/2018 01/28/2023Overweight with body mass index (BMI) 25.0-29.90 Obesity with body mass index 30 or zqdshda56Mixed dygzhtdsxfsdgp84History of primary malignant neoplasm of lung 12/12/Mixed hearing loss, onhfstaxk13eneralized anxiety kdtkbqgh07Referral of leuscnz12ough Encounters DateTypeDepartmentCare WrjkQjeyydaxesy84/22/2025linisync Result Encounter [facility] External Department Unsolicited Provider, Generic External Data 07/07/2025Patient Outreach [facility] [address] [place] [address] Zo Tavarez LSW 07/02/2025linisync Result Encounter [facility] External Department Unsolicited Provider, Generic External Data 06/30/2025Results Follow-Up [facility] [address], [address] [place] [address] Marcellus Valenzuela DO GASTROINTESTINAL PLUS PARASITES (HTRX)06/29/2025 1:00 PM ESTOffice Visit [facility] [address], [address] [facility] [place] [address] Marcellus Valenzuela DO Acute gastroenteritis (Primary Dx); Diarrhea, unspecified type; Nausea and vomiting, unspecified vomiting type; Essential qdscxtboffmd18/09/2025Bamboo flowsheet [place] [address] [address], [facility] [address] [place] [address] Marcellus Valenzuela DO 06/16/2025linisync Result Encounter [facility] External Department Unsolicited Provider, Generic External Data 06/07/2025Patient Outreach [facility] [address] [place] [address] Zo Tavarez LSW 05/06/2025Patient Outreach [place] [address] [place] [address] Zo Tavarez LSW 04/27/2025 1:20 PM EDTOffice Visit [facility] [address], [facility] [address] [place] [address] Marcellus Valenzuela DO End-stage renal disease on hemodialysis (HCC) (Primary Dx); Hypotension, unspecified hypotension type; Other fatigue; Essential hypertension; Atrial fibrillation, unspecified type (HCC); Hemiplegia, unspecified affecting left nondominant side (HCC); Chronic obstructive pulmonary disease, unspecified (HCC); Lumbar pain5Bamb flowsheet [facility] [address], [facility] [address] [place] [address] Marcellus Valenzuela DO from Last 3 Months Immunizations ImmunizationAdministration DatesNext DueDT (pediatric)07/22/1995Hep B, adult 12/21/1995,08/22/1995,07/22/1995PPD Test06/01/2024,05/22/20243039WYAJ-IQA-5 (COVID- 19) vaccine, mRNA, spike protein, LNP, bivalent, preservative free, 30 mcg/0.3 mLdose, tosin-sucrose alttepjocxo95/29/6960Sdsf16/10/2013 Family History Medical HistoryRelationNameCommentsNo Known ProblemsBrotherrobertdob 1950No [...] get together with friends or relatives? Patient vxbbsatq35/25/2023How often do you attend uatsdin or restoration services? Patient amkmrevv67/25/2023o you belong to any clubs or organizations such as uatsdin groups, unions, fraternal or athletic groups, or school groups?Patient yijsqmrw34/25/2023How often do you attend meetings of the clubs or organizations you belong to?Patient qpzehgmo81/25/2023re you , , , , never , or living with a partner?Raldpej7704/15/2023UDIT-C AnswerDate RecordedQ1: How often do you have [...] hard at all04/15/2023 PHQ-2AnswerDate RecordedPatient Health Questionnaire-2 Jhctx90508/30/2024Fin[facility], [facility] [place] of Occupational Health - Occupational Stress QuestionnaireAnswerDate [...] Last Filed Vital Signs Vital SignReadingTime TakenCommentsBlood Eptcqfqn420/9206/29/2025 1:18 PM EST Rrfan225306/29/2025 1:18 PM RHPHiddkifyzet70.1 ??C (97 ??F)06/29/2025 1:18 PM EST Respiratory Ugry335008/30/2024 1:18 PM ESTOxygen Dnctatzrow87%06/29/2025 1:18 PM ESTInhaled Oxygen Concentration--Xuxmya14.1 kg (128 lb)06/29/2025 1:18 PM EST Iomsyw865 cm (5' 3 )06/29/2025 1:18 PM ESTBody Mass Index22.6706/29/2025 1:18 PM EST Plan of Treatment DateTypeDepartmentCare Team (Latest Contact Info)Qxtwpsydnta05/07/2026 11:20 AM ESTOffice Visit [facility]AV[facility] [address], [facility] [address] [place] [address] Marcellus Valenzuela, [address] [facility] [address] [place] [address] Health MaintenanceDue DateLast DoneCommentsCT Puiykxllkhfa65/17/1951Colonoscopy 1950FIT1950FOBT1950 5301Vvxwzhlkgtbfl79/17/1951Pneumococcal Vaccine: 65+ Years (1 of 2 - PCV)11/06/19710852Cnaytosed93, 03/17/2019Colorectal Cancer Janhkhpaz80/10/2022FIT-DNA, 12/29/2018Influenza Vaccine (#1)2025 Procedures Procedure NamePriorityDate/TimeAssociated DiagnosisCommentsALL POTASSIUMRoutine 07/12/2025 7:43 AM EST ALL SMWQSZHHFHchtmrw12/12/2025 7:25 AM EST GASTROINTESTINAL PLUS PARASITES (HTRX)Khnvwjt4106/29/2025 1:49 PM EST Diarrhea, unspecified type Nausea and vomiting, unspecified vomiting type ALL GYXXQLGQFHjtultw03/26/2025 7:19 AM EST BI MAMMOGRAM SCREENING GRDWSGYJUBsykjdw86/27/2019 Generalized anxiety disorder Body mass index (BMI) 30.0-30.9, adult Encounter for screening mammogram for malignant neoplasm of breast Lumbago with sciatica, unspecified side LAB COLOGUARD?? COLON CANCER UOICCLHrxefrl85/10/2019 from Last 3 Months or Most Recently Relevant to Health Maintenance Results * (ABNORMAL) ALL POTASSIUM (07/12/2025 7:43 AM EST) Only the most recent of3 resultswithin the time period is included. ComponentValueRef RangeTest MethodAnalysis TimePerformed AtPathologist Signature POTASSIUM6.7(HH)3.5 - 5.1 mmol/LTBHComment:RESULTS CALLED TOSpecimen (Source) Anatomical Location / LateralityCollection Method / VolumeCollection Time Received Time07/12/2025 7:43 AM EST07/12/2025 10:47 AM EST Narrative CLINISYNC - 07/12/2025 10:56 AM EST [facility] Authorizing ProviderResult TypeResult StatusGeneric External Data Provider CLINISYNCFinal ResultPerforming OrganizationAddressCity/State/ZIP CodePhone Number CLINISYNC [facility] * GASTROINTESTINAL PLUS PARASITES (HTRX) (06/29/2025 1:49 PM EST)ComponentValue Ref RangeTest MethodAnalysis TimePerformed AtPathologist SignatureADENOVIRUS L21-91716.000 - 31.004 ppm06/30/2025 8:20 AM ESTHealthTrackRx at [facility] ADENOVIRUS D78-15Yom Byntaehu99.000 - 31.004 ppm06/30/2025 8:20 AM EST [facility] at LabPortCAMPYLOBACTER SPP (COLI, JEJUNI, UPSALIENSIS)023.000 - 31.263 ppm06/30/2025 8:20 AM ESTHealthTrackRx at LabPortCAMPYLOBACTER SPP (COLI, JEJUNI, UPSALIENSIS)Not Whatlqvc64.000 - 31.263 ppm06/30/2025 8:20 AM ESTHealthTrackRx at LabPortENTEROAGGREGATIVE E. COLI (EAEC)019.691 - 24.689 ppm06/30/2025 8:20 AM ESTHealthTrackRx at LabPortENTEROAGGREGATIVE E. COLI (EAEC)Not Pmwqpiwz93.691 - 24.689 ppm06/30/2025 8:20 AM ESTHealthTrackRx at LabPortENTEROINVASIVE E. COLI (EIEC)-SHIGELLA GLY136.691 - 24.689 ppm 06/30/2025 8:20 AM ESTHealthTrackRx at LabPortENTEROINVASIVE E. COLI (EIEC)- SHIGELLA SPPNot Havqmzkq04.691 - 24.689 ppm06/30/2025 8:20 AM ESTHealthTrackRx at LabPortENTEROPATHOGENIC E. COLI (EPEC)019.691 - 24.689 ppm06/30/2025 8:20 AM ESTHealthTrackRx at LabPortENTEROPATHOGENIC E. COLI (EPEC)Not Detected 19.691 - 24.689 ppm06/30/2025 8:20 AM ESTHealthTrackRx at [facility] ENTEROTOXIGENIC E. COLI (ETEC)019.691 - 24.689 ppm06/30/2025 8:20 AM EST [facility] at LabPortENTEROTOXIGENIC E. COLI (ETEC)Not Jmvwiuhr73.691 - 24.689 ppm06/30/2025 8:20 AM ESTHealthTrackRx at LabPortNOROVIRUS (GENOGROUP 1, 2)023.000 - 30.251 ppm12/04/2025 8:20 AM ESTHealthTrackRx at [facility] NOROVIRUS (GENOGROUP 1, 2)Not Ehaokbiy59.000 - 30.251 ppm06/30/2025 8:20 AM ESTHealthTrackRx at LabPortROTAVIRUS A, B, C023.000 - 31.736 ppm06/30/2025 8:20 AM ESTHealthTrackRx at [facility] ChildrenROT[facility] A, B, CNot Sofyzlsu00.000 - 31.736 ppm06/30/2025 8:20 AM ESTHealthTrackRx at EbxRapzCJSFKOZDDK935.000 - 30.960 ppm06/30/2025 8:20 AM ESTHealthTrackRx at [facility] ChildrenSALMONELLANot Detected 23.000 - 30.960 ppm06/30/2025 8:20 AM ESTHealthTrackRx at [facility] TOXIN- PRODUCING E. COLI (STEC)019.691 - 24.689 ppm06/30/2025 8:20 AM EST [facility] TOXIN- PRODUCING E. COLI (STEC)Not Detected 19.691 - 24.689 ppm06/30/2025 8:20 AM ESTHealthTrackRx at [facility] TOXIN- PRODUCING E. COLI O157 (STEC O157)019.691 - 24.689 ppm06/30/2025 8:20 AM EST [facility] TOXIN- PRODUCING E. COLI O157 (STEC O157)Not Mtlkhxiz87.691 - 24.689 ppm06/30/2025 8:20 AM ESTHealthTrackRx at [facility] Specimen (Source)Anatomical Location / LateralityCollection Method / Volume Collection TimeReceived BkbxNgwekaf28/09/2025 1:49 PM EST06/30/2025 2:46 AM EST Narrative Authorizing ProviderResult TypeResult StatusDaniraheem JASON BLOOD ORDERABLES Edited Result - FinalPerforming OrganizationAddressCity/State/ZIP CodePhone Number [facility] [address] [address] * Bilateral screening mammogram (03/17/2019)Anatomical RegionLateralityModality BreastBilateralMammographySpecimen [...] Kameron Olivera M.D.03/17/2019 5:37 PM Dictation Location: [facility] Transcribed By: ? PWS ?03/17/19 1737 Dictated By: ?Kameron Olivera MD ?03/17/19 1727 Signed By: <Electronically signed by MD Kameron Olivera in OV> ?03/17/19 1737 Narrative 03/17/2019 12:00 AM EDT PERFORMED AT [facility] LOCATION:[place] [address] ?[facility] [place] ?[address] ? [place] [address] ? Mammography Report ? Signed Patient: Lupe Butler ?MR#: [id number] 1 : 1950 ?Acct:[id number] Age/Sex: 68 / F ?ADM Date: 03/17/19 [...] Note CONVERSION, GENERIC - 01/25/2023 PERFORMED AT [facility] LOCATION:[address] [place] [address] Mammography Report Signed Patient: Lupe ButlerMR#: [id number] 1 : 3Acct:[id number] Age/Sex: 68 / FADM Date: 03/17/19 Loc: [place] Room:Type: [facility] Attending Dr: TAZ [...] Kameron Olivera M.D.03/17/2019 5:37 PM Dictation Location: [facility] Transcribed By: ZEFERINO 03/17/19 1737 [...] (Shawna Tavera al, N Engl J Med 2014;370(14):4481-8898) ?? COLOGUARD RE-SCREENING RECOMMENDATION: Periodic routine colorectal cancer screening is an important part of preventive healthcare for asymptomatic persons at average risk for colorectal cancer. ??Following a negative Cologuard result, the [place] Cancer Society and U.S. Multi-Society Task Force screening guidelines recommend a Cologuard re-screening interval of 3 years. ??References: [place] [employer] Society (ACS). Colorectal cancer prevention and early detection. [place], [place]: [place] [employer]; [updated 2015Nov 12]. https://www.cancer.org/cancer/co mjh-oetnfh-hbvbts/peaatirjd-lgndniott-luwzqde/acs-recommendations.html. Accessed March 21, 2018; Cl DK, Kirstin ZAPATA, Abdoul SamuelK, Colorectal Cancer Screening: Recommendations for Physicians and Patients from the U.S. Multi-Society Task Force on Colorectal Cancer Screening, Am J Gastroenterology 2017; 112:6772-2287. Test Type: Composite algorithmic analysis of stool [...] can be accessed at the following location: www.StatusPage.Songfor/results. ??Additional description of the Cologuard test process, warnings and precautions can be found at www.cologuardtest.com. Rx Only. Specimen (Source)Anatomical Location / LateralityCollection Method / Volume Collection TimeReceived Time12/29/2018 Narrative Authorizing ProviderResult TypeResult StatusCarrie Zeinab Sánchez LAB MOLECULAR DIAGNOSTICS ORDERABLESFinal ResultPerforming OrganizationAddressCity/State/ZIP CodePhone Number [facility] from Last 3 Months or Most Recently Relevant to Health Maintenance Insurance * Guarantor: Lupe ButlerAccoroxanna TypeRelation to PatientDate of BirthPhone Billing AddressPersonal/QvhjkdCjqn78/17/1951 [address] [address] Care Teams Team MemberRelationshipSpecialtyStart DateEnd Marcellus Valenzuela DO [address] [place] [address] PCP - GeneralFamily Medicine02/17/25 Marcellus Valenzuela DO [address] [place] [address] PCP - Carolynn KEN04/21/25 Zo Tavarez LSW [address] [place] [address] Social WorkerFamily Medicine02/22/23
--- OUTSIDE RECORDS SUMMARY | 2025-07-19 08:17 | XMS_ITS | Clinical Summary ---
Author Organization [facility] Address [address] [place] [address] Care Team Providers Care Veterinary Dentist Name Role Phone Jayy Guzman MD Primary Care Provider [phone] Allergies Active AllergyReactionsCriticalityNoted TtspManftrvcXhxmiskbec09/07/2016 Bjyjiifrfamgt63/07/2016Diphth-Acell Pertussis-Nhbguqj9607/28/2015 Medications MedicationSigDispense QuantityRefillsLast FilledStart DateEnd DateStatus Flaxseed, [...] DateDiagnosed DateLeft upper lobe genetics unknown lung lsjjrpfakovsbv74/15/2015 Family History Medical HistoryRelationNameCommentsHypertensionFatherStrokeMotherLung Cancer Sister 1Lung CancerSister 2RelationNameStatusCommentsFatherDeceasedMother DeceasedSister 1AliveSister 2Deceased Social History Tobacco UseTypesPacks/DayYears UsedDateSmoking Tobacco: Every DayCigarettes0.543 Smokeless Tobacco: NeverAlcohol UseStandard Drinks/WeekCommentsYes1 (1 standard drink = 0.6 oz pure alcohol)CommentsUnknownSex and Gender Information ValueDate RecordedSex Assigned at BirthNot on fileLegal GmgAiwjpb72/28/2015 1:45 PM ESTGender IdentityNot on fileSexual OrientationNot on file Last Filed Vital Signs Vital SignReadingTime TakenCommentsBlood Ckkmudqn569/90007/28/2015 2:17 PM EST Ozsih471607/28/2015 2:17 PM HFQGajnblnrvqq68.3 ??C (97.4 ??F)07/28/2015 2:17 PM ESTRespiratory Rpjr477707/28/2015 2:17 PM ESTOxygen Blhvegaweq00%07/28/2015 2:17 PM ESTInhaled Oxygen Concentration--Zmtpyi05.4 kg (161 lb 12.8 oz)07/28/2015 2:17 PM AIKLqlsxl614 cm (5' 2.99 )07/28/2015 2:17 PM ESTBody Mass Index28.67 07/28/2015 2:17 PM EST Plan of Treatment Health MaintenanceDue DateLast DoneCommentsDEXA SCAN EEVZYKFDDO68/17/1951 HEPATITIS C VIRUS OMTMTGCBJ31/17/1953CERVICAL CANCER SCREENING DISCUSSION 1973LIPID HGYDTIWIA98/17/1993MAMMOGRAM SCREENING XQEUPLHDQV90/17/1993 COLORECTAL CANCER SCREENING YKVCNEYQLE45/17/1998PNEUMOCOCCAL VACCINE SERIES (1 of 1 - PCV)2002ZOSTER (SHINGLES) VACCINE (1 of 2)2002COVID-19 VACCINE (1 - 2024- season)2025INFLUENZA VACCINE (#1)2025RSV VACCINE (1 - 1-dose 75+ series)11/06/2027HEP B VACCINEAged OutNo longer eligible based on patient's age to complete this topic Insurance Care Teams Team MemberRelationshipSpecialtyStart DateEnd Date Jayy Guzman MD [address] [place] [address] PCP - GeneralFafranciscan children's Medicine07/28/15
--- OUTSIDE RECORDS SUMMARY | 2025-07-19 08:17 | XMS_ITS | Encounter Summary ---
Author Organization [facility] Address [address] [place] [address] Care Team Providers Care Modeling Teacher Name Role Phone Zo Tavarez DOCK WORKER Unavailable Marcellus Valenzuela DO Primary Care Provider [phone] Marcellus Valenzuela DO Unavailable [phone] Encounter Details DateTypeDepartmentCare Team (Latest Contact Info)Kqybthxyuva85/22/2025Clinisync Result Encounter [facility] External Department Unsolicited Provider, [...] you get together with friends or relatives?Patient kabtcklm63/25/2023How often do you attend presybeterian or church services?Patient lmhiyrgf15/25/2023o you belong to any clubs or organizations such as presybeterian groups, unions, fraternal or athletic cristobal ups, or school groups?Patient frmrqoph55/25/2023How often do you attend meetings of the clubs or organizations you belong to?Patient jwrmiwke06/25/2023re you , , , , never , or living with a partner? Yihvlhe4804/15/2023UDIT-CAnswerDate RecordedQ1: How often do you have a [...] hard at all04/15/2023HQ-2AnswerDate RecordedPatient Health Questionnaire-2 Score0 06/29/2025[facility] [place] of Occupational Health - Occupational Stress QuestionnaireAnswerDate [...] RecordedSex Assigned at BirthNot on fileLegal Sex Hnsoqs7110/03/2022 6:53 PM EDTGender IdentityNot on fileSexual OrientationNot on filedocumented as of this encounter Plan of Treatment DateTypeDepartmentCare Team (Latest Contact Info)Vvupwunetbd44/07/2026 11:20 AM ESTOffice Visit [facility] [address] [place] [address] NicolasMarcellus zhou, DO [address] [facility] [address] [place] [address] documented as of this encounter Procedures Procedure NamePriorityDate/TimeAssociated DiagnosisCommentsALL POTASSIUMRoutine 07/12/2025 7:43 AM EST documented in this encounter Results * (ABNORMAL) ALL POTASSIUM (07/12/2025 7:43 AM EST)ComponentValueRef RangeTest MethodAnalysis TimePerformed AtPathologist SignaturePOTASSIUM6.7(HH)3.5 - 5.1 mmol/LTBHComment:RESULTS CALLED TOSpecimen (Source)Anatomical Location / LateralityCollection Method / VolumeCollection TimeReceived Time07/12/2025 7:43 AM EST07/12/2025 10:47 AM EST [...] [address] [place] [address] PCP - GeneralFamily Medicine02/17/25 Marcellus Valenzuela DO [address] [place] [address] PCP - Carolynn KEN04/21/25 Zo Tavarez LSW [address] [place] [address] Social WorkerFamily Medicine02/22/23documented as of this encounter
--- OUTSIDE RECORDS SUMMARY | 2025-07-19 08:17 | XMS_ITS | Clinical Summary ---
Author Organization [facility] Address [address] [place] [address] Phone Care Team Providers Care Conveyor Feeder Offbearer Name Role Phone Jayy Guzman MD Primary Care Provider [phone] Social History Tobacco UseTypesPacks/DayYears UsedDateSmoking Tobacco: Never Assessed CommentsUnknownSex and Gender InformationValueDate RecordedSex Assigned at Not on fileLegal VdfJpveap38/25/2022 10:58 PM ESTGender IdentityNot on file Sexual OrientationNot on file Last Filed Vital Signs Vital SignReadingTime TakenCommentsBlood Tdqvfxxm027/8308/04/2021 11:05 AM EST Prlos6663/14/2022 11:05 AM VNYJbvsdxsbpof61.3 ??C (97.3 ??F)08/04/2021 11:05 AM ESTRespiratory Lfzk773908/04/2021 11:05 AM ESTOxygen Eoqfxzpqwp38%08/04/2021 11:05 AM ESTInhaled Oxygen Concentration--Oqrgpt12 kg (174 lb 1 oz)08/04/2021 11:05 AM SOCUoymjs826.6 cm (5' 4 )08/04/2021 11:05 AM ESTBody Mass Index29.8808/04/2021 11:05 AM EST Plan of Treatment Health MaintenanceDue DateLast DoneCommentsCT Mawoyazulzli08/17/1953Colonoscopy 3Colorectal Cancer Kmaalzsmb02/17/1953FIT-DNA (Cologuard)1952FIT 1952Lipid Panel04/17/1953Medicare Annual Wellness Visit (AWV)1952 Qvceaczpmktrd62/17/1953MMR Vaccines (1 of 1 - Standard series)1953 Hepatitis C Ofzfulgfp62/17/1971CKD: Urine Protein Uqhegfzst16/17/1972 Pneumococcal Vaccine (1 of 2 - PCV)11/06/1971DTaP/Tdap/Td Vaccines (1 - Tdap) 11/05/19743449Sfvljwpzm54/17/1993RSV High Risk: (Elderly (60+) or Population) (1 - Risk 50-74 years 1-dose series)2002Zoster Vaccines (1 of 2)2002Bone Density Scan2017COVID-19 Vaccine (1 - season) 2025Influenza Vaccine (#1)2025HIB VaccinesAged OutNo longer eligible based on patient's [...] Advance Directives For more information, please contact: [phone] (Available ) TypeDate RecordedPatient RepresentativeExplanationHealthcare Power of Atty 1Living Will07/21/2021 Care Teams Team MemberRelationshipSpecialtyStart DateEnd Date Jayy Guzman MD [address] [place] [phone] [facility]03/01/15
--- OUTSIDE RECORDS SUMMARY | 2025-07-19 08:17 | XMS_ITS | Encounter Summary ---
Author Organization [facility] Address [address] [place] [address] Care Team Providers Care Allergist/Pediatric Pulmonologist Name Role Phone Zo Tavarez Unavailable Marcellus Valenzuela DO Primary Care Provider [phone] Marcellus Valenzuela DO Unavailable [phone] Encounter Details DateTypeDepartmentCare Team (Latest Contact Info)Oiohlimilrf90/17/2025Patient Outreach [facility] POPULATION [facility] [address] [place] [phone] Zo Tavarez LSW [address] [place] [address] Social History Tobacco UseTypesPacks/DayYears UsedDateSmoking Tobacco: FormerCigarettesQuit: [...] or relatives?Patient /25/2023How often do you attend gnosticist or mormonism services?Patient wblwaptp98/25/2023o you belong to any clubs or organizations such as gnosticist groups, unions, fraternal or athletic cristobal ups, or school groups?Patient eoszngur56/25/2023How often do you attend meetings of the clubs or organizations you belong to?Patient kkxkcten35/25/2023re you , , , , never , or living with a partner? Vyeyvsi0504/15/2023UDIT-CAnswerDate RecordedQ1: How often do you have a [...] hard at all04/15/2023HQ-2AnswerDate RecordedPatient Health Questionnaire-2 Score0 06/29/2025[facility] [place] [facility] - Occupational Stress QuestionnaireAnswerDate [...] RecordedSex Assigned at BirthNot on fileLegal Sex Bodfuh5110/03/2022 6:53 PM EDTGender IdentityNot on fileSexual OrientationNot on filedocumented as of this encounter Progress Notes * PEDRO Ramires - 07/07/2025 11:21 AM EST Attempted to contact pt x 2 for monthly monitor. No answer or VM. Mailbox full. <July 07, 2025, 11:23 - PEDRO Ramires> No calls back from pt, closing encounter. documented in this encounter Plan of Treatment DateTypeDepartmentCare Team (Latest Contact Info)Kmlhtmawoqt49/07/2026 11:20 AM ESTOffice Visit [facility] [place] [facility] [address] [place] [address] Marcellus Valenzuela DO [address] [place] [address] documented as of this encounter Visit Diagnoses Diagnosis Essential (primary) hypertension- Primary Unspecified essential hypertension Stage 3 chronic kidney disease, unspecified whether stage 3a or 3b CKD ([facility]) documented in this encounter Additional Health Concerns AssessmentNoted TimePHQ-9 Depression Total Score: 1:37 PM EDT documented as of this encounter Care Teams Team MemberRelationshipSpecialtyStart DateEnd Date Marcellus Valenzuela DO [address] [place] [address] PCP - GeneralFamily Medicine02/17/25 Marcellus Valenzuela DO [address] [place] [address] PCP - Carolynn KEN04/21/25 Zo Tavarez, PEDRO [address] [place] [address] Social WorkerFamily Medicine02/22/23documented as of this encounter
--- OUTSIDE RECORDS SUMMARY | 2025-07-19 08:17 | XMS_ITS | Clinical Summary ---
Author Organization [facility] Address [address] [place], [place] [id number] Care Team Providers Care Formal Wear Rental Clerk Name Role Phone Jayy Guzman MD Primary Care Provider [phone] Jie Johnson APRN.BIZTALK SOFTWARE DEVELOPER Unavailable [phone] Roxana Wagner RN Unavailable [phone] Allergies Active AllergyReactionsCriticalityNoted XtmsLqudufphHmmvnXmtyexw31/23/2024 MorphineMental Status TkatkqPclk58/18/2010Nitrofuran Nnlvdzfrv07/17/2001Sulfa (Sulfonamide Antibiotics)07/07/2001 Medications MedicationSigDispense QuantityRefillsLast FilledStart DateEnd [...] from lung to other site, right01/15/2023lood pressure wqgiahlecgg16/06/2023VD (peripheral vascular disease)12/21/2022ifficult xabkaouyod61/02/2023History of carotid aqknrhofyevrbk09/02/0949Owznwm03/02/2023therosclerosis of [place] coronary artery of [place] heart without angina hbjenhcl80/02/2023OSA (obstructive sleep apnea)12/21/20224291Voafnrnmtfkm14/02/2023Opioid use12/21/2022Obesity (BMI 30.0-34.9)12/21/20225909XAJUHYC71/22/2010 Overview (09/13/2009): 58 y/o female s/p L [...] require SNP today then d/c central line. Hpizjs9409/11/2009 Overview (09/11/2009): 09/11/09 - III unit PRBC possible GI source. TIA (transient ischemic attack)09/08/20092028Gguah65/25/2002Anxiety and depression Overview (09/13/2009): Not on SSRI [...] Immunizations ImmunizationAdministration DatesNext Duediphtheria tetanus (DT) vaccine, /01/1996hepatitis B (HepB) vaccine, 3-dose series, age 20+ [...] drink = 0.6 oz pure alcohol)rarePHQ-2AnswerDate RecordedPHQ-2 ewagq1953Area Deprivation IndexAnswerDate RecordedNational Score (1-100), lower number is lower risk78 12/13/2022State Score (1-10), lower number is lower fxao2133Data from: https://www.neighborhoodatlas.medicine.[facility].edu/. Last address used for [address] [address]/13/2022CommentsNoSex and Gender InformationValueDate RecordedSex Assigned at BirthNot on fileLegal SexFemale 06/22/2012 9:20 AM ESTGender IdentityNot on fileSexual OrientationNot on file OccupationIndustryJob Start DateJob End DateNURSENot on fileNot on fileNot on file Last Filed Vital Signs Vital SignReadingTime TakenCommentsBlood Dgqrexkw228/8010 12:59 PM EDT manual wzmliYaipn0113/15/2024 12:50 PM ZDQTkmpftasoak17.2 ??C (97.2 ??F) 05/05/2024 12:50 PM EDTRespiratory Hcuy1608 12:50 PM EDTOxygen Euvohmjmpn75%05/05/2024 12:50 PM EDT3 liters of S5Eculviu Oxygen Concentration-- Figbjw46 kg (167 lb 8.8 oz)05/05/2024 12:50 PM GERWyoauw684.8 cm (5' 2.52 ) 05/05/2024 12:50 PM EDTBody Mass Index30.141 12:50 PM EDT Plan of Treatment Health MaintenanceDue DateLast DoneCommentsAnnual PCP Team Chronic Disease Visit 1970Pneumococcal Vaccine: 50+ (1 of 2 - PCV)11/06/1971CT Colonography 11/05/19976001Rbsbwxoqjmj67/17/1998Fecal Occult Blood1997Sigmoidoscopy 1997Shingrix Vaccine (1 of 2)2002Bone Density Amfnbiyzc29/17/2018 Mammogram Fsgozylqf55, 03/17/2019, 03/17/2019Cologuard (FIT-DNA)Colorectal Cancer Pbdmhegar00/10/2022TaP,Tdap,Td Vaccine (3 - Td or Tdap)/04/2013, 07/22/1995LDL Cholesterol /01/2023, 01/25/2023dvance Directive Vntbjwucrq47/01/2025Medicare Advantage Annual Wellness Visit07/22/2024ovid-19 Vaccine ( season) /, 04/18/2021, 10/11/2020, Additional history existsInfluenza Vaccine (#1)03/22/2025Diabetes Cfcfocabh53, 04/14/2024, 03/24/2024, Additional history existsRSV Vaccine (1 - 1-dose 75+ series) 11/06/2027Lipid Anaojbhxg55, 01/25/2023Hepatitis C Screening Wrcjbteyv59/10/2001 Medical Devices ImplantedTypeAreaManufacturerDevice IdentifierShelf Expiration DateModel / Serial / LotPort-07/25/2023 Implanted:07/25/2023 (Quantity not on file)Chest Wall Procedures Procedure NamePriorityDate/TimeAssociated DiagnosisCommentsCOMPREHENSIVE METABOLIC FCCDQJtvzdsv09/15/2024 12:39 PM EDT 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, right (HCC) HEP REMOTE PANEL BL03/31/2001 3:23 PM EDT from Last 3 Months or Most Recently Relevant to Health Maintenance Results * (ABNORMAL) COMPREHENSIVE METABOLIC PANEL (05/05/2024 12:39 PM EDT)Component ValueRef RangeTest MethodAnalysis TimePerformed AtPathologist Signature Protein, Total6.0(L)6.3 - 8.0 g/dL05/05/2024 1:16 PM EDTNORTHCOAST [facility] LABAlbumin3.8(L)3.9 - 4.9 g/dL05/05/2024 1:16 PM EDTNORTHCOAST [facility] LABCalcium, Total8.78.5 - 10.2 mg/dL05/05/2024 1:16 PM EDTNORTHCST [facility] LABBilirubin, Total0.50.2 - 1.3 mg/dL 05/05/2024 1:16 PM EDTNORTHCOAST [facility] LABAlkaline Ntfqjlsmqko0535 - 123 U/L1 1:16 PM EDTNORTHCST [facility] OFEWUQ3385 - 35 U/L1 1:16 PM EDTNORTHCST [facility] QIFLQO140 - 38 U/L1 1:16 PM EDTNORTMUN[facility] JXISqufyax5226 - 99 mg/dL05/05/2024 1:16 PM [facility] LABComment: The [place] Diabetes Association (ADA) provides guidance for cutoff [...] Standards of Medical Care in Diabetes 2016, [place] Diabetes Association. Diabetes Care. 2016.39(Suppl 1). BUN44(H)7 - 21 mg/dL05/05/2024 1:16 PM [facility] Creatinine1.50(H)0.58 - 0.96 mg/dL05/05/2024 1:16 PM [facility] JIBJvcxuf895003 - 144 mmol/L1 1:16 PM [facility] LABPotassium4.03.7 - 5.1 mmol/L1 1:16 PM T [facility] JKRQeagzusw32980 - 107 mmol/L1 1:16 PM [facility] GCNDH140(H)22 - 30 mmol/L1 1:16 PM [facility] LABAnion Gap88 - 15 mmol/L1 1:16 PM [facility] LABEstimated Glomerular Filtration Rate37(L)>=60 mL/min/1.73m 05/05/2024 1:16 PM [facility] LABComment:Estimated Glomerular Filtration Rate (eGFR) is [...] / UnknownPort - Continuous Access Dev. / Dkwnagr4205/05/2024 12:39 PM EDT 05/05/2024 12:52 PM EDT Narrative Authorizing ProviderResult TypeResult StatusMehnaz ATKINS-CLABORATORYFinal ResultPerforming OrganizationAddressCity/State/ZIP CodePhone Number [facility] [address] [place] [address] * (ABNORMAL) HEP REMOTE PANEL BL (03/31/2001 3:23 PM EDT)ComponentValueRef Range Test MethodAnalysis TimePerformed AtPathologist SignatureHep B Core Ab, Total NegativeNEGJEFFERSON CITY CLINIC LABHep C Antibody IANegativeNEGCLEVELAND CLINIC MENTOR [...] Number [facility] [address] [place] [address] from Last 3 Months or Most Recently Relevant to Health Maintenance Insurance [address] [place] [address] [address] [place] [address] Care Teams Team MemberRelationshipSpecialtyStart DateEnd Date Jayy Guzman MD [address] [place] [address] PCP - General09/01/09 Jie Johnson APRN.BIZTALK SOFTWARE DEVELOPER [address] [place] [address] Nurse PractitionerHematology/Oncology01/16/23 oRxana Wagner, LIU [address] [place] [address] Specialty Care CoordinatorHematology/Oncology01/16/23
[2025-07-19 08:39] LABS: Potassium 5.8 mmol/L (3.5-5.1)
== END 2025-07-19 08:13 | disposition home or self-care (01) ==
LOC: LAB 08:12
PROVIDERS: PCP Family Medicine; Visit Provider Internal Medicine
DX: E87.5 Hyperkalemia (principal)
CPT/HCPCS: 36415; 84132